=== PATIENT | female | born 1940 | race Caucasian/White ===

== ENCOUNTER → 2016-11-29 | Outpatient (CLI) | payer BC ==
[~2016-11-29] MED LIST: ALBUAER2 INH; ASPI81TA25 PO; B-COTAB18 PO; BUSP5TAB59 PO; BYS/5 PO; CHOL1TAB42; CLON0.5T3 PO; CRS/10 PO; DEXL60CA4 PO; LAMO150T32 PO; LETR2TAB PO; NTRGSL/4 UT; QUET-205 PO; QUET1TAB32 PO; ROFL1TAB5 PO; VENL150T33 PO; VITAMIN B PO
--- NOTE | 2016-11-29 12:36 | MAMMOGRAPHY REPORT ---
THIS REPORT HAS BEEN AMENDED. BILATERAL DIGITAL DIAGNOSTIC MAMMOGRAM TOMOSYNTHESIS WITH CAD AND TARGETED RIGHT ULTRASOUND: 11/29/19 17 CLINICAL HISTORY: History of right breast cancer status post lumpectomy. The patient reports a poss ible lump as well as some tenderness along her right scar. She reports that she had a breast MRI in 2016 at [facility]. TECHNIQUE: Breast tomosynthesis in addition to standard 2D mammography was performed. Current study was also evaluated with a Computer Aided Detection (CAD) system. Bilateral CC and MLO 2-D and ganga synthesis images were obtained. COMPARISON: Comparison is made to exams dated: 11/16/2015 ultrasound, 10/18/2015 breast MRI, 015 mammogram, 08/11/2014 ultrasound, 07/30/2014 mammogram, and 08/11/2014 mammogram - [facility]. BREAST COMPOSITION: There are scattered areas of fibroglandular density in both breasts. FINDINGS: There are stable post treatment changes in the right breast, with stable density and arch itectural distortion seen within the right upper outer quadrant at the lumpectomy bed. Mild diffuse right breast trabecular thickening is decreased. There are stable post surgical changes in the lef t anterior breast. There are no suspicious masses, calcifications, or areas of nonsurgical architec tural distortion noted in either breast. Bilateral benign-appearing calcifications are again noted. Targeted ultrasound was performed of the area of the palpable lump and tenderness along her scar in the right breast at 9:00, approximately 5 cm from the nipple. There are expected postsurgical gibbs es at the surgical bed, without evidence of a suspicious mass or other suspicious sonographic abnorm ality. Slightly more laterally at approximately 7 cm from the nipple, there is a thin anechoic flui d collection which measures 1.8 x 0.2 cm, consistent with a benign postsurgical seroma. IMPRESSION: ACR BI-RADS CATEGORY 2: BENIGN, TARGETED ULTRASOUND ACR BI-RADS CATEGORY 2: BENIGN Expected postsurgical changes in the right breast, without mammographic evidence of malignancy in ei ther breast. Expected postsurgical changes are seen at the surgical bed in the right breast on ultr asound at the site of the possible lump and tenderness, with no suspicious masses noted. There is no mammographic or targeted sonographic evidence of malignancy. Recommend clinical follow-up, and rec ommend routine bilateral mammograms in one year. The patient reports she had an outside breast MRI last year; we will try to obtain the outside MRI a nd an addendum will be made if any further workup needs to be performed once the MRI is reviewed. T he patient has been verbally notified of the results. Approximately 10% of breast cancers are not detected with mammography. A negative mammographic repor t should not delay biopsy if a clinically suggestive mass is present. Mandy Edward M.D. ah/:11/29/2016 12:06:39 Bolt Man: Yolie MOSES)(Virgie), [facility] letter sent: Normal 11/19 BI-RADS Code: ACR BI-RADS Category 2: Benign Ultrasound BI-RADS: ACR BI-RADS Category 2: Benign AMENDMENT: 12/05/2016 Mandy Edward M.D. The prior outside breast MRI and report dated 07/20/2016 from [facility] has become available for comparison. The MRI was given a BI-RADS 2, with no MRI evidence of malignancy noted. Therefore , no further work up is needed in regards to the MRI. Recommend routine bilateral mammograms in one year. Amended BI-RADS: ACR BI-RADS Category 2: Benign
== END | disposition home or self-care (01) ==
LOC: C.MAMM 10:24
PROVIDERS: ATTEND Surgery
DX: C50.911 Malignant neoplasm of unspecified site of right female breast (principal)

== ENCOUNTER → 2016-12-24 | Outpatient (CLI) | payer BC ==
[2016-12-24 13:53] LABS: HEMATOCRIT 37.4 % (37-47); MEAN CELL VOLUME 92.6 fL (80-100); MEAN CORPUSCULAR HEMOGLOBIN 30.7 pg (25-34); MEAN CORPUSCULAR HGB CONC 33.2 g/dl (32-36); MEAN PLATELET VOLUME 10.1 fL (7.4-10.4); PLATELET COUNT 221 K/uL (130-400); RED BLOOD COUNT 4.04 M/uL (4.2-5.4); WHITE BLOOD COUNT 6.32 K/uL (4.8-10.8)
[2016-12-24 14:00] LABS: ESTIMATED AVERAGE GLUCOSE 114 mg/dl; HA1C FLAG Normal (Normal)
[2016-12-24 14:23] LABS: ALT/SGPT 27 U/L (12-78); AST/SGOT 24 U/L (15-37); BLOOD UREA NITROGEN 13 mg/dl (7-18); BUN/CREATININE RATIO 10.5 (10-20); CALCIUM 8.9 mg/dl (8.5-10.1); CARBON DIOXIDE 23 mmol/L (21-32); CHLORIDE 109 mmol/L (98-107); CHOLESTEROL 186 mg/dl (0-200); GLUCOSE 100 mg/dl (70-99); POTASSIUM 3.7 mmol/L (3.5-5.1); SODIUM 143 mmol/L (136-145)
[2016-12-24 14:32] LABS: ALB/GLOB RATIO 0.9 (0.9-2); ALKALINE PHOSPHATASE 110 U/L (45-117); CHOLESTEROL/HDL RATIO 4.4; HDL CHOLESTEROL 42 mg/dl; LDL CHOLESTEROL CALCULATED 88 mg/dl; THYROID STIMULATING HORMONE 0.271 uIu/ml (0.300-4.500); TRIGLYCERIDES 280 mg/dl (0-150); VERY LOW DENSITY LIPOPROT CALC 56 mg/dl
--- NOTE | 2017-01-22 07:03 | CODING QUERY MEDICAL NECESSITY ---
CQSUPPORTING DIAGNOSIS NEEDED A supporting diagnosis is required for the test/procedure performed on this patient in order for us to be reimbursed by the patient's insurance. Please provide a supporting diagnosis for the following test/procedure listed below next to the test name along with your signature. *If there is no additional diagnosis for this patient that would support the following test/procedure please document that below next to the test/procedure. Test(s)/Procedure(s) that require a supporting diagnosis: DOS 12/24/16 VITAMIN B12 TEST Provider Signature: Date: Thank you Junie Chavez [employer] Information Management Once completed, please kindly fax back to [phone] For questions please call [phone]
== END | disposition home or self-care (01) ==
LOC: C.LABBC 09:51
PROVIDERS: ATTEND Family Medicine
DX: R73.09 Other abnormal glucose (principal); D51.9 Vitamin B12 deficiency anemia, unspecified

== ENCOUNTER → 2016-12-31 | Outpatient (CLI) | payer BC ==
--- NOTE | 2016-12-31 13:10 | DIAGNOSTIC IMAGING REPORT ---
LEFT SHOULDER MIN 2 VIEWS ROUTINE CLINICAL HISTORY: Left shoulder pain. No recent trauma. COMPARISON: None FINDINGS: Alignment of left shoulder is anatomic. There is no fracture or suspicious lesion. Mild degenerative changes are present. IMPRESSION: 1. No acute fracture or dislocation of the left shoulder. 2. Mild degenerative changes of the left shoulder. Electronically signed by: Wes Lui M.D. 12/31/2016 1:09 PM Dictated Date/Time: 12/31/2016 1:07 PM
--- NOTE | 2016-12-31 13:23 | DIAGNOSTIC IMAGING REPORT ---
CERVICAL SPINE 5 VIEWS HISTORY: Pain NECK PAIN COMPARISON: None. FINDINGS: The cervical spine is visualized from C1 through the superior endplate of T1. There is no fracture. No subluxation. Moderate degenerative disc change throughout. Mild osteopenia. Calcification of the carotid vasculature bilaterally. Prevertebral soft tissues and the atlantodens interval are intact. IMPRESSION: Moderate degenerative disc change throughout the entire cervical region. Osteopenia. Calcification of the carotid vasculature. Electronically signed by: Jeff Marlow M.D. 12/31/2016 1:22 PM Dictated Date/Time: 12/31/2016 1:21 PM
--- NOTE | 2017-01-02 10:41 | CODING QUERY NO DIAGNOSIS ---
TREATMENT RENDERED WITHOUT A DIAGNOSIS To promote full compliance with coding requirements relating to patient care, physician participation is requested in all cases of battery mechanic uncertainty. Please assist us with providing a diagnosis/symptom for the test(s) below: A diagnosis/symptom was not documented on your Order. A valid diagnosis/symptom is required to bill all insurances. Please remember that we are unable to code a diagnosis of rule out, probable, possible, questionable, or suspected. Tests that require a diagnosis: * C-SPINE XRAY DIAGNOSIS: * SHOULDER XRAY DIAGNOSIS: Provider Signature: Date: Thank you Elle Thakkar [employer] Information Management Once completed, please kindly fax back to [phone] For questions please call [phone]
== END | disposition home or self-care (01) ==
LOC: C.RADBC 12:43
PROVIDERS: ATTEND Family Medicine
DX: M54.2 Cervicalgia (principal); M25.512 Pain in left shoulder

== ENCOUNTER → 2017-02-05 | Outpatient (CLI) | payer BC ==
[2017-02-05 13:25] VITALS: BP 112/76; PULSE 87; TEMP 36.8; O2SAT 92
--- NOTE | 2017-02-05 14:23 | Radiation Oncology Follow-Up ---
Radiation Oncology Follow-Up Date of Visit Feb 05, 2017. Reason For Visit Annual follow-up Radiation Completion Date finished 12-24-2014 Diagnosis (1) Breast cancer Status: Resolved Onset Date: 08/23/2014 Stage: l Permanent Comment: Abnormal bilateral mammogram Status post core needle biopsy 08/23/2014 revealing intraductal papilloma on the left Right breast showed invasive ductal carcinoma Status post right lumpectomy and sentinel lymph node biopsy 10/08/2014 Stage [id number] Status post completion of radiation therapy 12/24/2014 utilizing hypo- fractionation received 5000 cGy Last Edited By: Brandy Damon on Aug 04, 2015 15:23 Interim History She has been doing well over this past year in regards to her breast. She is noted no masses or tenderness no change of the axilla. She is noted no swelling of her arm. She is up-to-date on mammography. She did have an area of fibrous tissue in the lateral portion of the breast. This has improved with massage therapy. She has seen Dr. Urbano in follow-up. She was seen on 2015. On that day she also had an MRI of her breasts. This showed no MRI evidence of malignancy. BI-RADS Category 2. She then had mammography 2016 at [facility]. This showed expected postsurgical changes in the right breast, without mammographic evidence of malignancy in either breast. Expected postsurgical changes are seen at the surgical bed in the right breast on ultrasound at the site of the possible lump and tenderness, with no suspicious mass noted. There is no mammographic or targeted sonographic evidence of malignancy. Recommend clinical follow-up and recommend routine bilateral mammography in one year. This lump was reported by the patient. This had been found previously examination. This was evaluated with an FNA that was benign. She continues on Femara. She denies side effects. Allergies Coded Allergies: Clopidogrel (Verified Allergy, Mild, HIVES, 12/06/14) Bupropion (Verified Allergy, Unknown, unknown, 12/06/14) Dicyclomine (Verified Allergy, Unknown, Glow, 12/06/14) Diltiazem (Verified Allergy, Unknown, Light headed, 12/06/14) Erythromycin (Verified Allergy, Unknown, EES, TAKES Z-PACKS W/O RXN, ) GAVE DIARRHEA Gabapentin (Verified Allergy, Unknown, "hands catch fire", 12/06/14) Losartan (Verified Allergy, Unknown, HIVES, 12/06/14) Micafungin (Verified Allergy, Unknown, rash, 12/06/14) Potassium Chloride (Verified Allergy, Unknown, Unknown, 12/06/14) Sucralfate (Verified Allergy, Unknown, Glow, 12/06/14) Sulfa Drugs (Verified Allergy, Unknown, SKIN BECOMES PHOTOSENSITIVE AND BECOMES RED, 12/06/14) Diazepam (Verified Adverse Reaction, Mild, DEPRESSION, 12/06/14) Amoxicillin (Verified Adverse Reaction, Unknown, DIARRHEA, 12/06/14) Clavulanic Acid (Verified Adverse Reaction, Unknown, DIARRHEA, 12/06/14) Hydrocodone (Verified Adverse Reaction, Unknown, CAN'T TOLERATE FOR LONG - "NOT ABLE TO FUNCTION", 12/06/14) PCUC RN SAID NOT A TRUE ALLERGY (01/16/04) Lisinopril (Verified Adverse Reaction, Unknown, COUGH, 12/06/14) Oxycodone (Verified Adverse Reaction, Unknown, INC. DEPRESSION, 12/06/14) PT REFUSED PERCOCET ON 01/16/04 SAID SHE HAD PAST ADDICTION PBS WITH IT. Penicillins (Verified Adverse Reaction, Unknown, AUGMENTIN=diarrhea, ) Home Medications Scheduled Aspirin (Aspir-Low), 1 TAB PO DAILY B-Complex Vitamins (Vitamin B Complex), 1 TAB PO DAILY Buspirone Hcl (Buspirone Hcl), 10 MG PO QAM Buspirone Hcl (Buspirone Hcl), 5 MG PO HS Cholecalciferol (Vitamin D), 5,000 UNITS DAILY Clonazepam (Klonopin), 0.5 MG PO HS Dexlansoprazole (Dexilant), 60 MG PO HS Lamotrigine (Lamictal), 150 MG PO DAILY Letrozole (Femara), 2.5 MG PO DAILY Nebivolol Hcl (Bystolic), 5 MG PO DAILY Nitroglycerin (Nitrostat), 0.4 MG UT PRN Quetiapine Fumarate (Seroquel), 200 MG PO HS Roflumilast (Daliresp), 500 MCG PO DAILY Rosuvastatin Calcium (Crestor), 10 MG PO QPM Venlafaxine Hcl (Venlafaxine Hcl Er), 150 MG PO QAM [Vitamin b], 500 MG PO DAILY Scheduled PRN Albuterol (Ventolin), 2 PUFF INH QID PRN for SOB/Wheezing Review of Systems Gastrointestinal: Symptoms: Diarrhea GI Comments: to have a colonoscopy March 05, 2017 Oral: Symptoms: No Problems Respiratory: Symptoms: WNL Sputum Character: white to clear sputum Other Respiratory: o@ saturation decreases to 70 ` s during the night, wears o2 2 Liters at ni Urinary: Symptoms: WNL Skin: Symptoms: No Problems Other Skin Symptoms: right side of breast dry and slightly pink, growth on right nipple Breast: Right Upper Arm Measurement: 38.0 Right Mid Arm Measurement: 25.5 Right Wrist Measurement: 16.1 Left Upper Arm Measurement: 36.5 Left Mid Arm Measurement: 25.5 Left Wrist Measurement: 17.9 Arm Dominence: Right Patient Cosmetic Evaluation: Excellent Staff Cosmetic Evalaluation: Excellent Physical Exam Vital Signs Date Time Temp Pulse Resp B/P Pulse Ox O2 Delivery O2 Flow Rate FiO2 02/05/17 13:25 36.8 87 20 112/76 92 Pain: Side: Bilateral Pain Location: eye discomfort; Patient Pain Scale: 0 - 10 Initial Pain Intensity: 0.0 Fatigue: None General Appearance: no apparent distress Eyes: normal inspection, EOMI ENT: normal ENT inspection, hearing grossly normal Respiratory/Chest: lungs clear, no respiratory distress, no accessory muscle use Breast: Breast examination reveals well-healed incisions of the right breast. Previous area of palpable firmness along the incision line has resolved. There are no masses or tenderness no axillary adenopathy. There are no skin retractions or nipple changes. Using the [place] score cosmesis she has a excellent outcome. The left breast showed no masses or tenderness and no axillary adenopathy. Cardiovascular: regular rate, rhythm, no gallop, no murmur Extremities: no pedal edema Neurologic/Psychiatric: no motor/sensory deficits, alert, normal mood/affect Skin: warm/dry Lymphatic: no adenopathy Laboratory Studies Test 12/24/16 09:56 White Blood Count 6.32 K/uL (4.8-10.8) Red Blood Count 4.04 M/uL (4.2-5.4) Hemoglobin 12.4 g/dL (12.0-16.0) Hematocrit 37.4 % (37-47) Mean Corpuscular Volume 92.6 fL (80-100) Mean Corpuscular Hemoglobin 30.7 pg (25-34) Mean Corpuscular Hemoglobin Concent 33.2 g/dl (32-36) RDW Standard Deviation 45.4 fL (36.4-46.3) RDW Coefficient of Variation 13.4 % (11.5-14.5) Platelet Count 221 K/uL (130-400) Mean Platelet Volume 10.1 fL (7.4-10.4) Sodium Level 143 mmol/L (136-145) Potassium Level 3.7 mmol/L (3.5-5.1) Chloride Level 109 mmol/L (98-107) Carbon Dioxide Level 23 mmol/L (21-32) Anion Gap 11.0 mmol/L (3-11) Blood Urea Nitrogen 13 mg/dl (7-18) Creatinine 1.20 mg/dl (0.60-1.20) Estimated GFR () 51.6 Estimated GFR (Non- 44.5 BUN/Creatinine Ratio 10.5 (10-20) Random Glucose 100 mg/dl (70-99) Estimated Average Glucose 114 mg/dl Hemoglobin A1c 5.6 % (4.5-5.6) Calcium Level 8.9 mg/dl (8.5-10.1) Total Bilirubin 0.3 mg/dl (0.2-1) Aspartate Amino Transferase (AST) 24 U/L (15-37) Alanine Aminotransferase (ALT) 27 U/L (12-78) Alkaline Phosphatase 110 U/L (45-117) Total Protein 7.2 gm/dl (6.4-8.2) Albumin 3.5 gm/dl (3.4-5.0) Globulin 3.7 gm/dl (2.5-4.0) Albumin/Globulin Ratio 0.9 (0.9-2) Triglycerides Level 280 mg/dl (0-150) Cholesterol Level 186 mg/dl (0-200) HDL Cholesterol 42 mg/dl LDL Cholesterol, Calculated 88 mg/dl VLDL Cholesterol, Calculated 56 mg/dl Cholesterol/HDL Ratio 4.4 Vitamin B12 Level 450 pg/mL (211-911) Thyroid Stimulating Hormone (TSH) 0.271 uIu/ml (0.300-4.500) Free Thyroxine 0.71 ng/dl (0.80-1.60) Free Triiodothyronine 2.48 pg/ml (2.30-4.20) Additional Studies THIS REPORT HAS BEEN AMENDED. BILATERAL DIGITAL DIAGNOSTIC MAMMOGRAM TOMOSYNTHESIS WITH CAD AND TARGETED RIGHT ULTRASOUND: 11/29/2016 CLINICAL HISTORY: History of right breast cancer status post lumpectomy. The patient reports a possible lump as well as some tenderness along her right scar. She reports that she had a breast MRI in 2016 at [facility]. TECHNIQUE: Breast tomosynthesis in addition to standard 2D mammography was performed. Current study was also evaluated with a Computer Aided Detection (CAD ) system. Bilateral CC and MLO 2-D and tomosynthesis images were obtained. COMPARISON: Comparison is made to exams dated: 11/16/2015 ultrasound, 2014 breast MRI, 10/03/2015 mammogram, 08/11/2014 ultrasound, 07/30/2014 mammogram , and 08/11/2014 mammogram - [facility]. BREAST COMPOSITION: There are scattered areas of fibroglandular density in both breasts. FINDINGS: There are stable post treatment changes in the right breast, with stable density and architectural distortion seen within the right upper outer quadrant at the lumpectomy bed. Mild diffuse right breast trabecular thickening is decreased. There are stable post surgical changes in the left anterior breast. There are no suspicious masses, calcifications, or areas of nonsurgical architectural distortion noted in either breast. Bilateral benign- appearing calcifications are again noted. Targeted ultrasound was performed of the area of the palpable lump and tenderness along her scar in the right breast at 9:00, approximately 5 cm from the nipple. There are expected postsurgical changes at the surgical bed, without evidence of a suspicious mass or other suspicious sonographic abnormality. Slightly more laterally at approximately 7 cm from the nipple, there is a thin anechoic fluid collection which measures 1.8 x 0.2 cm, consistent with a benign postsurgical seroma. IMPRESSION: ACR BI-RADS CATEGORY 2: BENIGN, TARGETED ULTRASOUND ACR BI-RADS CATEGORY 2: BENIGN Expected postsurgical changes in the right breast, without mammographic evidence of malignancy in either breast. Expected postsurgical changes are seen at the surgical bed in the right breast on ultrasound at the site of the possible lump and tenderness, with no suspicious masses noted. There is no mammographic or targeted sonographic evidence of malignancy. Recommend clinical follow-up, and recommend routine bilateral mammograms in one year. The patient reports she had an outside breast MRI last year; we will try to obtain the outside MRI and an addendum will be made if any further workup needs to be performed once the MRI is reviewed. The patient has been verbally notified of the results. Approximately 10% of breast cancers are not detected with mammography. A negative mammographic report should not delay biopsy if a clinically suggestive mass is present. Mandy Edward M.D. ah/:11/29/2016 12:06:39 Offal Separator: Yolie MOSES)(Virgie), [facility] letter sent: Normal 11/19 BI-RADS Code: ACR BI-RADS Category 2: Benign Ultrasound BI-RADS: ACR BI-RADS Category 2: Benign AMENDMENT: 12/05/2016 Mandy Edward M.D. The prior outside breast MRI and report dated 07/20/2016 from [facility] has become available for comparison. The MRI was given a BI-RADS 2, with no MRI evidence of malignancy noted. Therefore, no further work up is needed in regards to the MRI. Recommend routine bilateral mammograms in one year. Amended BI-RADS: ACR BI-RADS Category 2: Benign Dictated by: Mandy Edward MD Signed by: Mandy Edward MD Assessment & Plan Plan: Continue regular follow-up with her primary care physician and . She continues on the Femara. She'll continue massage therapy to the right breast scar. She has an essential tremor of the hands. She is following with Dr. Clark in regards to treatment and follow-up. She has a right breast digital diagnostic mammogram scheduled for March 2017. Continue follow-up as recommended by radiology. On the last mammogram it was felt that she could continue with mammograms imaging only at this point. She is to continue with bilateral mammography. Final decision regarding further MRIs per . We asked her to return to our office in 1 year. She may call she has a questions or concerns in the interim. Total Time In Follow-Up I spent 20 minutes speaking to the patient performing examination. I spent 15 minutes reviewing information and completing this note. Copy To Abiel Clark M.D. Problem Qualifiers (1) Breast cancer: Breast location: central portion of breast Patient sex: female Laterality: right Qualified Codes: C50.111 - Malignant neoplasm of central portion of right female breast
== END | disposition home or self-care (01) ==
LOC: C.ONC 13:11
PROVIDERS: ATTEND Physician Assistant Medical
DX: Z08 Encounter for follow-up examination after completed treatment for malignant neoplasm (principal); Z92.3 Personal history of irradiation; Z85.3 Personal history of malignant neoplasm of breast

== ENCOUNTER → 2017-05-30 | Outpatient (CLI) | payer BC ==
[~2017-05-30] MED LIST changes: -QUET-205 PO
[2017-05-30 18:45] LABS: BASO % 0.4 %; BASO ABS # 0.03 K/uL (0-0.2); COMPLETE YES; EOS % 3.1 %; HEMATOCRIT 35.6 % (37-47); IG% 0.3 %; LYMPH % 32.3 %; MEAN CELL VOLUME 91.5 fL (80-100); MEAN CORPUSCULAR HEMOGLOBIN 30.3 pg (25-34); MEAN CORPUSCULAR HGB CONC 33.1 g/dl (32-36); MEAN PLATELET VOLUME 9.5 fL (7.4-10.4); MONO % 12.4 %; NEUT % 51.5 %; PLATELET COUNT 187 K/uL (130-400); RED BLOOD COUNT 3.89 M/uL (4.2-5.4); WHITE BLOOD COUNT 7.12 K/uL (4.8-10.8)
[2017-05-30 19:19] LABS: ALB/GLOB RATIO 0.9 (0.9-2); ALKALINE PHOSPHATASE 110 U/L (45-117); ALT/SGPT 29 U/L (12-78); AST/SGOT 24 U/L (15-37); BLOOD UREA NITROGEN 15 mg/dl (7-18); BUN/CREATININE RATIO 10.4 (10-20); CALCIUM 9.3 mg/dl (8.5-10.1); CARBON DIOXIDE 27 mmol/L (21-32); CHLORIDE 107 mmol/L (98-107); GLUCOSE 95 mg/dl (70-99); POTASSIUM 4.3 mmol/L (3.5-5.1); SODIUM 142 mmol/L (136-145); THYROID STIMULATING HORMONE < 0.005 uIu/ml (0.300-4.500)
[2017-05-30 20:09] LABS: LYME DISEASE AB IGG NEG (NEG)
[2017-05-30 20:10] LABS: LYME DISEASE AB IGM NEG (NEG)
[2017-06-05 15:27] LABS: 18KDIGG BAND NONREACTIVE (NONREACTIVE); 23KDIGG BAND NONREACTIVE (NONREACTIVE); 23KDIGM BAND NONREACTIVE (NONREACTIVE); 28KDIGG BAND NONREACTIVE (NONREACTIVE); 30KDIGG BAND NONREACTIVE (NONREACTIVE); 39KDIGG BAND NONREACTIVE (NONREACTIVE); 39KDIGM BAND NONREACTIVE (NONREACTIVE); 41KDIGG BAND NONREACTIVE (NONREACTIVE); 41KDIGM BAND NONREACTIVE (NONREACTIVE); 45KDIGG BAND NONREACTIVE (NONREACTIVE); 58KDIGG BAND NONREACTIVE (NONREACTIVE); 66KDIGG BAND REACTIVE (NONREACTIVE); 93KDIGG BAND NONREACTIVE (NONREACTIVE)
== END | disposition home or self-care (01) ==
LOC: C.LAB 17:31
PROVIDERS: ATTEND Family Medicine
DX: R07.9 Chest pain, unspecified (principal)

== ENCOUNTER → 2017-06-05 | Outpatient (CLI) | payer BC ==
--- NOTE | 2017-06-05 14:25 | DIAGNOSTIC IMAGING REPORT ---
CHEST 2 VIEWS ROUTINE CLINICAL HISTORY: Fever. Shortness of breath. COMPARISON STUDY: Chest radiograph May 12, 2015. FINDINGS: No pneumothorax or pleural effusion is present. There is irregularity with sclerosis of an anterior right sided rib. On this exam, it is difficult to determine which rib this represents. This is new since prior chest radiograph of May 12, 2015. Lungs are clear. There is no evidence of pulmonary edema. Cardiomediastinal silhouette is unremarkable. IMPRESSION: 1. No acute cardiopulmonary findings. 2. Sclerosis and irregularity of a right anterior rib. While nonspecific, this could be related to previous radiation therapy for breast cancer or posttraumatic. Electronically signed by: Wes Lui M.D. 06/05/2017 2:24 PM Dictated Date/Time: 06/05/2017 2:14 PM
[2017-06-05 14:42] LABS: BASO % 0.5 %; BASO ABS # 0.03 K/uL (0-0.2); COMPLETE YES; EOS % 3.3 %; HEMATOCRIT 35.9 % (37-47); IG% 0.2 %; LYMPH % 35.4 %; LYMPH ABS # 2.36 K/uL (1.2-3.4); MEAN CELL VOLUME 90.4 fL (80-100); MEAN CORPUSCULAR HEMOGLOBIN 30.5 pg (25-34); MEAN CORPUSCULAR HGB CONC 33.7 g/dl (32-36); MEAN PLATELET VOLUME 9.5 fL (7.4-10.4); MONO % 9.6 %; PLATELET COUNT 201 K/uL (130-400); RED BLOOD COUNT 3.97 M/uL (4.2-5.4); WHITE BLOOD COUNT 6.66 K/uL (4.8-10.8)
[2017-06-05 15:13] LABS: ALT/SGPT 30 U/L (12-78); AST/SGOT 25 U/L (15-37); BLOOD UREA NITROGEN 19 mg/dl (7-18); BUN/CREATININE RATIO 14.4 (10-20); CALCIUM 9.4 mg/dl (8.5-10.1); CARBON DIOXIDE 27 mmol/L (21-32); CHLORIDE 110 mmol/L (98-107); GLUCOSE 104 mg/dl (70-99); POTASSIUM 4.2 mmol/L (3.5-5.1); SODIUM 143 mmol/L (136-145)
[2017-06-05 15:15] LABS: ALB/GLOB RATIO 0.9 (0.9-2); ALKALINE PHOSPHATASE 115 U/L (45-117)
[2017-06-05 16:16] LABS: LYME DISEASE AB IGM NEG (NEG)
[2017-06-05 16:19] LABS: LYME DISEASE AB IGG NEG (NEG)
[2017-06-11 18:00] LABS: 18KDIGG BAND NONREACTIVE (NONREACTIVE); 23KDIGG BAND NONREACTIVE (NONREACTIVE); 23KDIGM BAND NONREACTIVE (NONREACTIVE); 28KDIGG BAND NONREACTIVE (NONREACTIVE); 30KDIGG BAND NONREACTIVE (NONREACTIVE); 39KDIGG BAND NONREACTIVE (NONREACTIVE); 39KDIGM BAND NONREACTIVE (NONREACTIVE); 41KDIGG BAND NONREACTIVE (NONREACTIVE); 41KDIGM BAND NONREACTIVE (NONREACTIVE); 45KDIGG BAND NONREACTIVE (NONREACTIVE); 58KDIGG BAND NONREACTIVE (NONREACTIVE); 66KDIGG BAND NONREACTIVE (NONREACTIVE); 93KDIGG BAND NONREACTIVE (NONREACTIVE)
== END | disposition home or self-care (01) ==
LOC: C.RAD 13:30
PROVIDERS: ATTEND Family Medicine
DX: R06.02 Shortness of breath (principal); R50.9 Fever, unspecified; M89.9 Disorder of bone, unspecified

== ENCOUNTER → 2017-07-23 | Outpatient (CLI) | payer BC | END | disposition home or self-care (01) | LOC: C.MAMM 13:04 | PROVIDERS: ATTEND Family Medicine | DX: N95.8 Other specified menopausal and perimenopausal disorders (principal); M81.0 Age-related osteoporosis without current pathological fracture; M85.851 Other specified disorders of bone density and structure, right thigh; M85.852 Other specified disorders of bone density and structure, left thigh ==

== ENCOUNTER 2017-12-05 14:49 | Emergency (ER) | payer BC ==
[~2017-12-05] VITALS: Ht 152.4 cm; Wt 80.5 kg
[~2017-12-05 14:49] MED LIST changes: -DEXL60CA4 PO; -LAMO150T32 PO; -NTRGSL/4 UT; -VENL150T33 PO
[2017-12-05 14:56] VITALS: Ht 152.4 cm; Wt 80.5 kg
[2017-12-05] MEDS ORDERED: VENL150T33 PO (15:46)
[2017-12-05] MEDS ORDERED: LAMO150T PO (17:47)
[2017-12-05] MEDS ORDERED: OXYCODONE/ACETAMINOPHEN 5-325 TAB PO ONE (18:30)
--- NOTE | 2017-12-05 18:51 | DIAGNOSTIC IMAGING REPORT ---
CHEST ONE VIEW PORTABLE HISTORY: Atypical chest pain. COMPARISON: Chest 06/05/2017. FINDINGS: Mild emphysema. The lungs are clear. The heart is normal in size. Mildly tortuous thoracic aorta. No pleural effusions. No pneumothorax. No new focal lung consolidations. IMPRESSION: No significant change compared to the prior study. No acute process. Electronically signed by: Kavon Yi M.D. 12/05/2017 6:50 PM Dictated Date/Time: 12/05/2017 6:49 PM
[2017-12-05 19:06] VITALS: O2SAT 98
[2017-12-05 19:20] LABS: HEMATOCRIT 36.5 % (37-47); HEMOGLOBIN 12.1 g/dL (12.0-16.0); MEAN CELL VOLUME 93.1 fL (80-100); MEAN CORPUSCULAR HEMOGLOBIN 30.9 pg (25-34); MEAN CORPUSCULAR HGB CONC 33.2 g/dl (32-36); MEAN PLATELET VOLUME 9.6 fL (7.4-10.4); PLATELET COUNT 196 K/uL (130-400); RED CELL DISTRIBUTION WIDTH CV 13.8 % (11.5-14.5); RED CELL DISTRIBUTION WIDTH SD 46.6 fL (36.4-46.3); WHITE BLOOD COUNT 10.71 K/uL (4.8-10.8)
[2017-12-05] MEDS ORDERED: QUET150T4 PO (19:26)
[2017-12-05] MEDS ORDERED: OXGN (19:26)
[2017-12-05] MEDS ORDERED: QUET5TAB PO (19:26)
[2017-12-05] MEDS ORDERED: BXN500 PO (19:26)
[2017-12-05] MEDS ORDERED: ROFL1TAB5 PO (19:26)
[2017-12-05] MEDS ORDERED: LEVO100T7 PO (19:26)
[2017-12-05] MEDS ORDERED: BYS/5 PO (19:26)
[2017-12-05] MEDS ORDERED: LEVA45AE INH (19:30)
[2017-12-05] MEDS ORDERED: SPRIN/30 INH (19:32)
[2017-12-05] MEDS ORDERED: SYMIN160 INH (19:32)
[2017-12-05 19:39] LABS: ALBUMIN 3.1 gm/dl (3.4-5.0); CALCIUM 8.7 mg/dl (8.5-10.1); CREATININE 1.42 mg/dl (0.60-1.20); POTASSIUM 4.1 mmol/L (3.5-5.1)
[2017-12-05 19:40] LABS: PTT PATIENT 25.7 SECONDS (21.0-31.0)
[2017-12-05 19:44] LABS: CKMB 0.9 ng/ml (0.5-3.6); TOTAL PROTEIN 7.2 gm/dl (6.4-8.2)
[2017-12-05] MEDS ORDERED: OXYC-57 PO (20:03)
--- NOTE | 2017-12-05 20:04 | EMERGENCY ROOM VISIT NOTE ---
History Report prepared by Jasmin: Martina Coley Under the Supervision of: Dr. Joe Armstrong D.O. First contact with patient: 18:10 Chief Complaint: CHEST PAIN Stated Complaint: SOB, CHEST PAIN, CARDIAC HISTORY Nursing Triage Summary: Patient with c/o chest pain pressure since Saturday and sob and Lower abdominal spasms. Patient states she was on an ABX for 10 days but still was coughing up yellowish sputum PCP placed on Clarithryomycin BID. History of Present Illness The patient is a 77 year old female who presents to the Emergency Room with complaints of an episode of chest pain starting two days ago. The patient states that she started an infection on November 20. She reports that she went to her PCP, but wasn't diagnosed with the flu or pneumonia. She reports that he gave her Clarithromycin, an inhaler, and Prednisone. She states that she went back again last week to her PCP because she had no improvement. She reports that she had another appointment with him today, but was told to come to the ED because she started experiencing back spasms. The patient complains of nasal congestion, a productive cough, her ears being plugged, voice hoarseness, right sided back spasms, and abdominal spasms. Source of History: patient Onset: two days ago Position: other (global) Quality: other (spasms) Timing: other (episode) Associated Symptoms: + cough (productive), + abdominal pain, + back pain Note: The patient complains of nasal congestion, her ears being plugged, and voice hoarseness. Review of Systems See HPI for pertinent positives & negatives. A total of 10 systems reviewed and were otherwise negative. Past Medical & Surgical Medical Problems: (1) ACUTE PANCREATITIS (2) Acute pancreatitis (3) Anemia (4) Anxiety (5) Bipolar 1 disorder (6) Breast cancer (7) CHR AIRWAY OBSTRUCT NEC (8) Coronary artery disease (9) Degenerative joint disease (10) Depression (11) DEPRESSIVE DISORDER NEC (12) Hyperlipidemia (13) HYPERLIPIDEMIA NEC/NOS (14) Hypertension (15) HYPERTENSION NOS (16) PNA (pneumonia) (17) Sleep apnea (18) TUBAL LIGATION STATUS Surgical Problems: (1) H/O right knee surgery (2) Status post cholecystectomy (3) Status post hysterectomy Family History Cardiovascular disease Heart disease Social History Smoking Status: Former Smoker Alcohol Use: none Marital Status: Housing Status: lives with family Occupation Status: employed Current/Historical Medications Scheduled Aspirin (Aspir-Low), 2 TAB PO DAILY B-Complex Vitamins (Vitamin B Complex), 1 TAB PO DAILY Budesonide/Formoterol Fumarate (Symbicort 160/4.5 Inhaler ), 2 PUFFS INH BID Clarithromycin (Clarithromycin), 500 MG PO BID Dexlansoprazole (Dexilant), 60 MG PO HS Home O2 Therapy (Oxygen), 2 LITERS NA HS Lamotrigine (Lamictal), 150 MG PO DAILY Letrozole (Femara), 2.5 MG PO DAILY Levalbuterol Tartrate (Levalbuterol Tartrate Hfa), 2 PUFFS INH BID Levothyroxine Sodium (Levothyroxine Sodium), 100 MCG PO HS Nebivolol Hcl (Bystolic), 5 MG PO DAILY Nitroglycerin (Nitrostat), 0.4 MG UT PRN Quetiapine Fumarate (Seroquel), 50 MG PO HS Quetiapine Fumarate (Quetiapine Fumarate ER), 150 MG PO HS Roflumilast (Daliresp), 500 MCG PO DAILY Rosuvastatin Calcium (Crestor), 10 MG PO DAILY Tiotropium [place] (Spiriva Handihaler), 1 CAP INH DAILY Venlafaxine Hcl (Venlafaxine Hcl Er), 150 MG PO QAM Scheduled PRN Oxycodone/Acetaminophen 5MG/325MG (Percocet 5MG/325MG), 1 TAB PO Q6H PRN for Pain Allergies Coded Allergies: Promethazine (Verified Allergy, Severe, TROUBLE FOCUSING & SPEAKING AT HIGHER DOSES, 12/05/17) Clopidogrel (Verified Allergy, Mild, HIVES, 12/06/14) Bupropion (Verified Allergy, Unknown, unknown, 12/06/14) Dicyclomine (Verified Allergy, Unknown, Glow, 12/06/14) Diltiazem (Verified Allergy, Unknown, Light headed, 12/06/14) Erythromycin (Verified Allergy, Unknown, EES, TAKES Z-PACKS W/O RXN, ) GAVE DIARRHEA Gabapentin (Verified Allergy, Unknown, "hands catch fire", 12/06/14) Losartan (Verified Allergy, Unknown, HIVES, 12/06/14) Metoclopramide (Verified Allergy, Unknown, ESSENTIAL TREMORS, 12/05/17) Micafungin (Verified Allergy, Unknown, rash, 12/06/14) Potassium Chloride (Verified Allergy, Unknown, Unknown, 12/06/14) Sucralfate (Verified Allergy, Unknown, Glow, 12/06/14) Sulfa Drugs (Verified Allergy, Unknown, SKIN BECOMES PHOTOSENSITIVE AND BECOMES RED, 12/06/14) Diazepam (Verified Adverse Reaction, Mild, DEPRESSION, 12/06/14) Amoxicillin (Verified Adverse Reaction, Unknown, DIARRHEA, 12/06/14) Clavulanic Acid (Verified Adverse Reaction, Unknown, DIARRHEA, 12/06/14) Hydrocodone (Verified Adverse Reaction, Unknown, CAN'T TOLERATE FOR LONG - "NOT ABLE TO FUNCTION", 12/06/14) [facility] RN SAID NOT A TRUE ALLERGY (01/16/04) Latex (Verified Adverse Reaction, Unknown, BANDAGE TAKES SKIN OFF, 12/05/17 ) INFO FROM [facility] Lisinopril (Verified Adverse Reaction, Unknown, COUGH, 12/06/14) Oxycodone (Verified Adverse Reaction, Unknown, INC. DEPRESSION, 12/06/14) PT REFUSED PERCOCET ON 01/16/04 SAID SHE HAD PAST ADDICTION PBS WITH IT. Penicillins (Verified Adverse Reaction, Unknown, AUGMENTIN=diarrhea, ) Physical Exam Vital Signs Date Time Temp Pulse Resp B/P (MAP) Pulse Ox O2 Delivery O2 Flow Rate FiO2 12/05/17 21:19 36.9 62 20 122/54 96 12/05/17 20:54 62 15 12/05/17 20:24 62 18 12/05/17 19:54 66 12/05/17 19:49 68 12/05/17 19:37 67 12/05/17 19:19 73 19 12/05/17 19:13 81 18 122/54 96 Room Air 12/05/17 19:10 122/54 12/05/17 19:06 98 Room Air 12/05/17 15:00 Room Air 12/05/17 14:56 36.9 90 16 127/71 96 Room Air Physical Exam CONSTITUTIONAL/VITAL SIGNS: Reviewed / noted above. GENERAL: Non-toxic in appearance. INTEGUMENTARY: Warm, dry, and Joyce. HEAD: Normocephalic. EYES: without scleral icterus or trauma. ENT/OROPHARYNX: clear and moist. LYMPHADENOPATHY/NECK: Is supple without lymphadenopathy or meningismus. RESPIRATORY: Lungs clear and equal. CARDIOVASCULAR: Regular rate and rhythm. GI/ABDOMEN: Soft and nontender. No organomegaly or pulsatile mass. No rebound or guarding. Normal bowel sounds. EXTREMITIES: Warm and well perfused. BACK: No CVA tenderness. NEUROLOGICAL: Intact without focal deficits. PSYCHIATRIC: normal affect. MUSCULOSKELETAL: Normally developed with good muscle tone. Medical Decision & Procedures ER Provider Diagnostic Interpretation: Radiology results as stated below per my review and radiologist interpretation: CHEST ONE VIEW PORTABLE HISTORY: Atypical chest pain. COMPARISON: Chest 06/05/2017. FINDINGS: Mild emphysema. The lungs are clear. The heart is normal in size. Mildly tortuous thoracic aorta. No pleural effusions. No pneumothorax. No new focal lung consolidations. IMPRESSION: No significant change compared to the prior study. No acute process. Electronically signed by: Kavon Yi M.D. 12/05/2017 6:50 PM Dictated Date/Time: 12/05/2017 6:49 PM Laboratory Results 12/05/17 19:11 12/05/17 19:11 Test 12/05/17 19:11 12/05/17 19:13 Red Blood Count 3.92 M/uL (4.2-5.4) Mean Corpuscular Volume 93.1 fL (80-100) Mean Corpuscular Hemoglobin 30.9 pg (25-34) Mean Corpuscular Hemoglobin Concent 33.2 g/dl (32-36) RDW Standard Deviation 46.6 fL (36.4-46.3) RDW Coefficient of Variation 13.8 % (11.5-14.5) Mean Platelet Volume 9.6 fL (7.4-10.4) Prothrombin Time 10.3 SECONDS (9.0-12.0) Prothromb Time International Ratio 1.0 (0.9-1.1) Activated Partial Thromboplast Time 25.7 SECONDS (21.0-31.0) Partial Thromboplastin Ratio 1.0 Anion Gap 6.0 mmol/L (3-11) Est Creatinine Clear Calc Drug Dose 32.2 ml/min Estimated GFR () 41.8 Estimated GFR (Non- 36.0 BUN/Creatinine Ratio 10.2 (10-20) Calcium Level 8.7 mg/dl (8.5-10.1) Total Bilirubin 0.6 mg/dl (0.2-1) Aspartate Amino Transf (AST/SGOT) 14 U/L (15-37) Alanine Aminotransferase (ALT/SGPT) 22 U/L (12-78) Alkaline Phosphatase 84 U/L (45-117) Total Creatine Kinase 71 U/L (26-192) Creatine Kinase MB 0.9 ng/ml (0.5-3.6) Creatine Kinase MB Ratio 1.3 (0-3.0) Total Protein 7.2 gm/dl (6.4-8.2) Albumin 3.1 gm/dl (3.4-5.0) Globulin 4.1 gm/dl (2.5-4.0) Albumin/Globulin Ratio 0.8 (0.9-2) Bedside Troponin I < 0.030 ng/ml (0-0.045) Laboratory results as stated above per my review. Medications Administered Medications (Trade) Dose Ordered Sig/Brent Route Start Time Stop Time Status Last Admin Dose Admin Oxycodone/ Acetaminophen (Percocet 5-325mg Tab) 1 tab NOW ONCE PO 12/05/17 18:30 12/05/17 18:31 DC 12/05/17 18:58 1 TAB ECG Indication: chest pain Rate (beats per minute): 98 Rhythm: normal sinus Findings: PVC, no acute ischemic change, no ectopy ED Course 1813: Previous medical records were reviewed. The patient was evaluated in room C2A. A complete history and physical examination was performed. 1824: Patient's electrocardiogram interpreted by me. 1829: Ordered Oxycodone/ Acetaminophen 1 tab PO. 2006: On reevaluation, the patient is resting comfortably. I discussed the results and findings with the patient. She verbalized agreement of the treatment plan. The patient was discharged home. Medical Decision the differential was considered includes acute myocardial infarction, acute coronary syndrome, myocarditis, pericarditis, pericardial effusions /tamponad, esophageal perforation, pulmonary embolism, pneumonia, pneumothorax, cardiomyopathy, congestive heart, anemia , COPD/asthma exacerbation. This is a 77-year-old female who presents to the ED with a chief complaint of cough as well as some back spasms. The patient has been on antibiotics and is currently on clarithromycin for an upper respiratory infection. She is also taking prednisone. The patient had some back spasms today and came to the ED for evaluation. She was concerned that her cough has not improved since it is been ongoing for 2 weeks. Her vital signs are normal. Physical exam did not reveal any obvious abnormalities. She did have some back discomfort with palpation in the muscular region on the right. EKG showed a sinus rhythm. Chest x-ray was negative for acute disease. CBC is normal, complete metabolic panel was unremarkable and troponin was negative. The patient was given a Percocet for pain. She was told the follow-up with PCP for recheck. She will be given a prescription for Percocet on discharge for her back spasm/pain related to coughing. It is noted that the patient has listed allergy to oxycodone. The patient tolerated the Percocet here without problem. Medication Reconcilliation Current Medication List: was personally reviewed by me Blood Pressure Screening Patient's blood pressure: Normal blood pressure Blood pressure disposition: Did not require urgent referral Impression Primary Impression: Influenza-like illness Additional Impression: Back muscle spasm Scribe Attestation The scribe's documentation has been prepared under my direction and personally reviewed by me in its entirety. I confirm that the note above accurately reflects all work, treatment, procedures, and medical decision making performed by me. Departure Information Dispostion Home / Self-Care Prescriptions Oxycodone/Acetaminophen 5MG/325MG (PERCOCET 5MG/325MG) Tab 1 TAB PO Q6H Y for Pain, #20 TAB Prov: Joe Armstrong D.O. 12/05/17 Referrals Abiel Clark M.D. (PCP) Forms Call Back Authorization, HOME CARE DOCUMENTATION FORM, IMPORTANT VISIT INFORMATION Patient Instructions [facility] Additional Instructions Continue current medications. Percocet as prescribed. No driving within 6 hours of use. Do not take additional Tylenol while taking Percocet. Problem Qualifiers
[2017-12-05 21:19] VITALS: BP 122/54; PULSE 62; TEMP 36.9; O2SAT 96
[2017-12-05] MEDS ORDERED: DEXL60CA4 PO (22:41)
[2017-12-05] MEDS ORDERED: NTRGSL/4 UT (22:51)
== END 2017-12-05 21:20 | disposition home or self-care (01) ==
LOC: C.EDB 14:50 → C.EDC 21:20
DX: R07.9 Chest pain, unspecified (principal); M62.830 Muscle spasm of back; D64.9 Anemia, unspecified; F41.9 Anxiety disorder, unspecified; F31.9 Bipolar disorder, unspecified; Z85.3 Personal history of malignant neoplasm of breast; J44.9 Chronic obstructive pulmonary disease, unspecified; I25.10 Atherosclerotic heart disease of native coronary artery without angina pectoris; E78.5 Hyperlipidemia, unspecified; I10 Essential (primary) hypertension; Z87.01 Personal history of pneumonia (recurrent); G47.30 Sleep apnea, unspecified; Z98.51 Tubal ligation status; Z90.49 Acquired absence of other specified parts of digestive tract; Z90.710 Acquired absence of both cervix and uterus; Z87.891 Personal history of nicotine dependence; Z79.82 Long term (current) use of aspirin; Z79.899 Other long term (current) drug therapy

== ENCOUNTER → 2017-12-19 | Outpatient (CLI) | payer BC ==
[~2017-12-19] MED LIST changes: -ALBUAER2 INH; -BUSP5TAB59 PO; +BXN500 PO; -CHOL1TAB42; -CLON0.5T3 PO; +DEXL60CA4 PO; +LAMO150T PO; +LEVA45AE INH; +LEVO100T7 PO; +NTRGSL/4 UT; +OXGN; +OXYC-57 PO; +QUET150T4 PO; -QUET1TAB32 PO; +QUET5TAB PO; +SPRIN/30 INH; +SYMIN160 INH; +VENL150T33 PO; -VITAMIN B PO
--- NOTE | 2017-12-23 07:40 | MAMMOGRAPHY REPORT ---
BILATERAL DIGITAL SCREENING MAMMOGRAM TOMOSYNTHESIS WITH CAD: 12/19/2017 CLINICAL HISTORY: Asymptomatic. Personal history of breast cancer. TECHNIQUE: Breast tomosynthesis in addition to standard 2D mammography was performed. Current study was also evaluated with a Computer Aided Detection (CAD) system. COMPARISON: Comparison is made to exams dated: 11/29/2016 mammogram, 11/29/2016 mammogram, 11/16/2015 ultrasound, 10/18/2015 breast MRI, 10/03/2015 mammogram, and 08/11/2014 ultrasound - [facility]. BREAST COMPOSITION: There are scattered areas of fibroglandular density in both breasts. FINDINGS: No suspicious masses, calcifications, or areas of architectural distortion are noted in ei ther breast. There has been no significant interval change compared to prior exams. There are stable postoperative changes bilaterally. Bilateral benign-appearing calcifications are not significantly changed. IMPRESSION: ACR BI-RADS CATEGORY 2: BENIGN There is no mammographic evidence of malignancy. A 1 year screening mammogram is recommended. The pa tient will receive written notification of the results. Approximately 10% of breast cancers are not detected with mammography. A negative mammographic report should not delay biopsy if a clinically suggestive mass is present. Mandy Edward M.D. /:12/19/2017 14:36:30 Graffiti Cleaner: Yolie Jones, [facility] letter sent: Normal 1/2 BI-RADS Code: ACR BI-RADS Category 2: Benign
== END | disposition home or self-care (01) ==
LOC: C.MAMM 14:02
PROVIDERS: ATTEND Radiology Radiation Oncology
DX: Z12.31 Encounter for screening mammogram for malignant neoplasm of breast (principal); Z85.3 Personal history of malignant neoplasm of breast

== ENCOUNTER 2018-02-06 09:37 | Emergency (ER) | payer BC ==
[~2018-02-06] VITALS: Ht 152.4 cm; Wt 78.0 kg
[~2018-02-06 09:37] MED LIST changes: -ASPI81TA25 PO; -B-COTAB18 PO; -BYS/5 PO; -CRS/10 PO; -DEXL60CA4 PO; -LAMO150T PO; -LETR2TAB PO; -LEVA45AE INH; -LEVO100T7 PO; -NTRGSL/4 UT; -OXGN; -QUET150T4 PO; -QUET5TAB PO; -ROFL1TAB5 PO; -SPRIN/30 INH; -SYMIN160 INH; -VENL150T33 PO
[2018-02-06 09:49] VITALS: TEMP 36.6; Ht 152.4 cm; Wt 78.0 kg
[2018-02-06] MEDS ORDERED: ONDANSETRON INJ 2 MG/ML 2 ML VIAL IV STA (09:53)
[2018-02-06] MEDS ORDERED: SODIUM CHLORIDE 0.9% 1000ML 1,000 ML IV STA ×2 (09:53→12:37)
[2018-02-06 10:10] VITALS: O2SAT 96
[2018-02-06 10:23] LABS: BASO % 0.5 %; BASO ABS # 0.04 K/uL (0-0.2); EOS % 2.3 %; EOS ABS # 0.17 K/uL (0-0.5); HEMATOCRIT 34.6 % (37-47); HEMOGLOBIN 11.7 g/dL (12.0-16.0); IG# 0.01 K/uL (0.00-0.02); LYMPH % 32.5 %; LYMPH ABS # 2.38 K/uL (1.2-3.4); MEAN CELL VOLUME 90.1 fL (80-100); MEAN CORPUSCULAR HEMOGLOBIN 30.5 pg (25-34); MEAN CORPUSCULAR HGB CONC 33.8 g/dl (32-36); MEAN PLATELET VOLUME 8.9 fL (7.4-10.4); MONO % 13.4 %; MONO ABS # 0.98 K/uL (0.11-0.59); NEUT % 51.2 %; NEUT ABS # 3.75 K/uL (1.4-6.5); PLATELET COUNT 162 K/uL (130-400); RED CELL DISTRIBUTION WIDTH CV 13.8 % (11.5-14.5); RED CELL DISTRIBUTION WIDTH SD 45.6 fL (36.4-46.3); WHITE BLOOD COUNT 7.33 K/uL (4.8-10.8)
[2018-02-06] MEDS ORDERED: LIOT5TAB9 PO (10:28)
--- NOTE | 2018-02-06 10:34 | DIAGNOSTIC IMAGING REPORT ---
CHEST ONE VIEW PORTABLE CLINICAL HISTORY: 77 years-old Female presenting with CHEST PAIN, history of breast cancer. TECHNIQUE: Portable upright AP view of the chest was obtained. COMPARISON: 12/05/2017, 06/05/[address] from 05/14/2014. FINDINGS: Atherosclerosis of the aortic arch. Cardiac silhouette top normal in size. Irregular dense nodular opacity in the right lung base is unchanged and indeterminate. No other new focal opacity. No large effusion or pneumothorax. Heterogeneity of lung parenchyma with relative radiolucency of the upper lobes. Osseous structures normal. Upper abdomen normal. IMPRESSION: 1. Irregular nodular opacity at the right lung base is indeterminate an unchanged from prior but not visible on prior CT from 05/14/2014. Given the patient's underlying risk factor of emphysema, further evaluation with dedicated PA and lateral views of the chest versus chest CT should be obtained. The report will be called/faxed according to standard departmental protocol. Electronically signed by: Pranav Nicholson M.D. 02/06/2018 10:33 AM Dictated Date/Time: 02/06/2018 10:29 AM
[2018-02-06 10:37] LABS: ALBUMIN 3.7 gm/dl (3.4-5.0); ALT/SGPT 22 U/L (12-78); BLOOD UREA NITROGEN 18 mg/dl (7-18); CALCIUM 9.1 mg/dl (8.5-10.1); CARBON DIOXIDE 24 mmol/L (21-32); CREATININE 1.56 mg/dl (0.60-1.20); GLUCOSE 106 mg/dl (70-99); LIPASE 237 U/L (73-393); SODIUM 139 mmol/L (136-145)
[2018-02-06 10:42] LABS: ALKALINE PHOSPHATASE 104 U/L (45-117); AST/SGOT 21 U/L (15-37); TOTAL PROTEIN 7.5 gm/dl (6.4-8.2)
[2018-02-06] MEDS ORDERED: METOCLOPRAMIDE HCL INJ 5 MG/ML 2 ML VIAL IV STA (11:03)
[2018-02-06] MEDS ORDERED: DiphenhydrAMINE HCL 50 MG/ML VIAL IV STA (11:03)
[2018-02-06] MEDS ORDERED: ROFL1TAB5 PO (11:22)
[2018-02-06] MEDS ORDERED: CRS/10 PO (11:22)
--- NOTE | 2018-02-06 12:23 | DIAGNOSTIC IMAGING REPORT ---
Brain MRI WITHOUT CONTRAST HISTORY: vertigo TECHNIQUE: Multiplanar multisequence MRI of the brain was performed without the use of contrast. COMPARISON STUDY: Brain MRI 07/29/2015. FINDINGS: There is no mass, hematoma, midline shift, or acute infarct. The paranasal sinuses are clear. The mastoid air cells are clear. The ventricles and sulci demonstrate mild age-related involutional changes. Scattered foci of T2 hyperintensity seen within the periventricular and subcortical white matter are nonspecific but suggestive of mild microvascular ischemic changes. The major vascular flow voids at the skull base are well-maintained. 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 IMPRESSION: No significant change compared to the prior study. No acute intracranial abnormality. Electronically signed by: Kavon Yi M.D. 02/06/2018 12:21 PM Dictated Date/Time: 02/06/2018 12:13 PM
[2018-02-06] MEDS ORDERED: LETR2TAB PO (13:36)
[2018-02-06] MEDS ORDERED: B-COTAB18 PO (13:36)
[2018-02-06] MEDS ORDERED: ASPI81TA25 PO (13:47)
--- NOTE | 2018-02-06 13:58 | DIAGNOSTIC IMAGING REPORT ---
CHEST 2 VIEWS ROUTINE HISTORY: Right lung opacity. Follow-up. COMPARISON: Chest 02/06/2018. FINDINGS: No pleural effusions. No pneumothorax. The heart remains mildly enlarged. There is a tortuous thoracic aorta. The left lung is clear. Cholecystectomy. No evidence for pulmonary edema. Interstitial thickening seen within the lateral to the right mid to lower lung zone. 1.3 cm irregular density within the right lower lung zone persists. There is a possible 9 mm peripheral nodule within the right midlung zone. IMPRESSION: Indeterminate right lung abnormalities as described above. Nonemergent chest CT follow up is recommended for further characterization. Electronically signed by: Kavon Yi M.D. 02/06/2018 1:56 PM Dictated Date/Time: 02/06/2018 1:54 PM
[2018-02-06 14:33] LABS: INFLUENZA A PCR Neg for Influ A (NEG); INFLUENZA B PCR Neg for Influ B (NEG)
[2018-02-06 15:00] VITALS: BP 156/57; PULSE 72; O2SAT 96
[2018-02-06] MEDS ORDERED: MECL1TAB42 PO (15:05)
--- NOTE | 2018-02-06 15:06 | EMERGENCY ROOM VISIT NOTE ---
History Report prepared by Jasmin: Alden Stephens Under the Supervision of: Dr. Nestor Beal M.D. First contact with patient: 09:48 Chief Complaint: DIZZY Stated Complaint: DIZZY, SWEAT, NAUSEA, SHAKES History of Present Illness The patient is a 77 year old female who presents to the Emergency Room with complaints of constant dizziness beginning 1.5 hour ago. She also complains of diaphoresis, shakiness, shortness of breath, headache, generalized weakness, and nausea. She began vomiting en route. The patient has a history of similar "attacks" with uncertain cause. Nothing has improved her symptoms. The patient' s symptoms began suddenly while eating breakfast at the [employer]. She has a history of cardiac issues, vertigo and depression/anxiety (on medication). She states that her current dizziness does not feel like vertigo, as her normal vertigo typically feels like the room is spinning. The patient's most recent cardiac catheterization was 10 years ago. She has no cardiac stents placed. She denies cough, abdominal pain, urinary symptoms, fevers, or chills. The patient states that she felt normal prior to her episode. Source of History: patient Onset: 1.5 hours ago Quality: other (dizziness) Timing: constant Modifying Factors (Relieving): other (none) Associated Symptoms: + headache, + diaphoresis, + SOB, + nausea, + vomiting , + weakness (generalized), No fevers, No chills, No cough, No abdominal pain, No urinary symptoms Note: Additional symptoms: shakiness. Review of Systems See HPI for pertinent positives and negatives. A total of ten systems were reviewed and were otherwise negative. Past Medical & Surgical Medical Problems: (1) ACUTE PANCREATITIS (2) Acute pancreatitis (3) Anemia (4) Anxiety (5) Bipolar 1 disorder (6) Breast cancer (7) CHR AIRWAY OBSTRUCT NEC (8) Coronary artery disease (9) Degenerative joint disease (10) Depression (11) DEPRESSIVE DISORDER NEC (12) Hyperlipidemia (13) HYPERLIPIDEMIA NEC/NOS (14) Hypertension (15) HYPERTENSION NOS (16) PNA (pneumonia) (17) Sleep apnea (18) TUBAL LIGATION STATUS Surgical Problems: (1) H/O right knee surgery (2) Status post cholecystectomy (3) Status post hysterectomy Family History Cardiovascular disease Heart disease Social History Smoking Status: Former Smoker Alcohol Use: none Marital Status: Housing Status: lives with family Occupation Status: employed Current/Historical Medications Scheduled Aspirin (Aspir-Low), 162 TAB PO DAILY B-Complex Vitamins (Vitamin B Complex), 1 TAB PO DAILY Budesonide/Formoterol Fumarate (Symbicort 160/4.5 Inhaler ), 2 PUFFS INH BID Dexlansoprazole (Dexilant), 60 MG PO HS Home O2 Therapy (Oxygen), 2 LITERS NA HS Lamotrigine (Lamictal), 150 MG PO DAILY Letrozole (Femara), 2.5 MG PO DAILY Levalbuterol Tartrate (Levalbuterol Tartrate Hfa), 2 PUFFS INH BID Levothyroxine Sodium (Levothyroxine Sodium), 100 MCG PO HS Liothyronine Sodium (Liothyronine Sodium), 5 MCG PO DAILY Nebivolol Hcl (Bystolic), 5 MG PO DAILY Nitroglycerin (Nitrostat), 0.4 MG UT PRN Quetiapine Fumarate (Seroquel), 50 MG PO HS Quetiapine Fumarate (Quetiapine Fumarate ER), 150 MG PO HS Roflumilast (Daliresp), 500 MCG PO DAILY Rosuvastatin Calcium (Crestor), 10 MG PO DAILY Tiotropium Melrose (Spiriva Handihaler), 1 CAP INH DAILY Venlafaxine Hcl (Venlafaxine Hcl Er), 150 MG PO QAM Scheduled PRN Meclizine Hcl (Meclizine Hcl), 25 MG PO TID PRN for Dizziness Allergies Coded Allergies: Promethazine (Verified Allergy, Severe, TROUBLE FOCUSING & SPEAKING AT HIGHER DOSES, 02/06/18) Clopidogrel (Verified Allergy, Mild, HIVES, 02/06/18) Bupropion (Verified Allergy, Unknown, unknown, 02/06/18) Dicyclomine (Verified Allergy, Unknown, Glow, 02/06/18) Diltiazem (Verified Allergy, Unknown, Light headed, 02/06/18) Erythromycin (Verified Allergy, Unknown, EES, TAKES Z-PACKS W/O RXN, ) GAVE DIARRHEA Gabapentin (Verified Allergy, Unknown, "hands catch fire", 02/06/18) Losartan (Verified Allergy, Unknown, HIVES, 02/06/18) Metoclopramide (Verified Allergy, Unknown, ESSENTIAL TREMORS, 02/06/18) Micafungin (Verified Allergy, Unknown, rash, 02/06/18) Potassium Chloride (Verified Allergy, Unknown, Unknown, 02/06/18) Sucralfate (Verified Allergy, Unknown, Glow, 02/06/18) Sulfa Drugs (Verified Allergy, Unknown, SKIN BECOMES PHOTOSENSITIVE AND BECOMES RED, 02/06/18) Diazepam (Verified Adverse Reaction, Mild, DEPRESSION, 02/06/18) Amoxicillin (Verified Adverse Reaction, Unknown, DIARRHEA, 02/06/18) Clavulanic Acid (Verified Adverse Reaction, Unknown, DIARRHEA, 02/06/18) Hydrocodone (Verified Adverse Reaction, Unknown, CAN'T TOLERATE FOR LONG - "NOT ABLE TO FUNCTION", 02/06/18) [facility] RN SAID NOT A TRUE ALLERGY (01/16/04) Latex (Verified Adverse Reaction, Unknown, BANDAGE TAKES SKIN OFF, 12/05/17 ) INFO FROM [facility] Lisinopril (Verified Adverse Reaction, Unknown, COUGH, 02/06/18) Oxycodone (Verified Adverse Reaction, Unknown, INC. DEPRESSION, 02/06/18) PT REFUSED PERCOCET ON 01/16/04 SAID SHE HAD PAST ADDICTION PBS WITH IT. Penicillins (Verified Adverse Reaction, Unknown, AUGMENTIN=diarrhea, ) Physical Exam Vital Signs Date Time Temp Pulse Resp B/P (MAP) Pulse Ox O2 Delivery O2 Flow Rate FiO2 02/06/18 15:00 72 20 156/57 96 Room Air 02/06/18 14:10 71 18 152/97 99 Room Air 02/06/18 12:20 65 18 143/54 98 Room Air 02/06/18 11:04 63 18 155/79 99 Room Air 02/06/18 10:10 96 Room Air 02/06/18 10:10 81 02/06/18 10:04 81 02/06/18 09:49 36.6 93 20 136/88 92 Room Air Physical Exam GENERAL: Awake, alert, uncomfortable-appearing, in no distress HENT: Normocephalic, atraumatic. Oropharynx unremarkable other than dry mucous membranes. EYES: Normal conjunctiva. Sclera non-icteric. NECK: Supple. No nuchal rigidity. FROM. No JVD. RESPIRATORY: Clear to auscultation. CARDIAC: Regular rate, normal rhythm. Extremities warm and well perfused. Pulses equal. ABDOMEN: Soft, non-distended. No tenderness to palpation. No rebound or guarding. No masses. RECTAL: Deferred. MUSCULOSKELETAL: Chest examination reveals no tenderness. The back is symmetrical on inspection without obvious abnormality. There is no CVA tenderness to palpation. No joint edema. LOWER EXTREMITIES: Calves are equal size bilaterally and non-tender. No edema. No discoloration. NEURO: Normal sensorium. No sensory or motor deficits noted. normal cerebellar function with [id number], alternating palms SKIN: No rash or jaundice noted. Medical Decision & Procedures ER Provider Diagnostic Interpretation: Radiology results as stated below per my review and radiologist interpretation: CHEST ONE VIEW PORTABLE FINDINGS: Atherosclerosis of the aortic arch. Cardiac silhouette top normal in size. Irregular dense nodular opacity in the right lung base is unchanged and indeterminate. No other new focal opacity. No large effusion or pneumothorax. Heterogeneity of lung parenchyma with relative radiolucency of the upper lobes. Osseous structures normal. Upper abdomen normal. IMPRESSION: 1. Irregular nodular opacity at the right lung base is indeterminate an unchanged from prior but not visible on prior CT from 05/14/2014. Given the patient's underlying risk factor of emphysema, further evaluation with dedicated PA and lateral views of the chest versus chest CT should be obtained. The report will be called/faxed according to standard departmental protocol. Electronically signed by: Pranav Nicholson M.D. 02/06/2018 10:33 AM CHEST 2 VIEWS ROUTINE FINDINGS: No pleural effusions. No pneumothorax. The heart remains mildly enlarged. There is a tortuous thoracic aorta. The left lung is clear. Cholecystectomy. No evidence for pulmonary edema. Interstitial thickening seen within the lateral to the right mid to lower lung zone. 1.3 cm irregular density within the right lower lung zone persists. There is a possible 9 mm peripheral nodule within the right midlung zone. IMPRESSION: Indeterminate right lung abnormalities as described above. Nonemergent chest CT follow up is recommended for further characterization. Electronically signed by: Kavon Yi M.D. 02/06/2018 1:56 PM Brain MRI WITHOUT CONTRAST FINDINGS: There is no mass, hematoma, midline shift, or acute infarct. The paranasal sinuses are clear. The mastoid air cells are clear. The ventricles and sulci demonstrate mild age-related involutional changes. Scattered foci of T2 hyperintensity seen within the periventricular and subcortical white matter are nonspecific but suggestive of mild microvascular ischemic changes. The major vascular flow voids at the skull base are well-maintained. 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 IMPRESSION: No significant change compared to the prior study. No acute intracranial abnormality. Electronically signed by: Kavon Yi M.D. 02/06/2018 12:21 PM Laboratory Results 02/06/18 10:10 Red Blood Count 3.84, Mean Corpuscular Volume 90.1, Mean Corpuscular Hemoglobin 30.5, Mean Corpuscular Hemoglobin Concent 33.8, Mean Platelet Volume 8.9, Neutrophils (%) (Auto) 51.2, Lymphocytes (%) (Auto) 32.5, Monocytes (%) (Auto) 13.4, Eosinophils (%) (Auto) 2.3, Basophils (%) (Auto) 0.5, Neutrophils # (Auto ) 3.75, Lymphocytes # (Auto) 2.38, Monocytes # (Auto) 0.98, Eosinophils # (Auto ) 0.17, Basophils # (Auto) 0.04 02/06/18 10:10 Test 02/06/18 10:10 02/06/18 10:50 02/06/18 12:55 White Blood Count 7.33 K/uL (4.8-10.8) Red Blood Count 3.84 M/uL (4.2-5.4) Hemoglobin 11.7 g/dL (12.0-16.0) Hematocrit 34.6 % (37-47) Mean Corpuscular Volume 90.1 fL (80-100) Mean Corpuscular Hemoglobin 30.5 pg (25-34) Mean Corpuscular Hemoglobin Concent 33.8 g/dl (32-36) Platelet Count 162 K/uL (130-400) Mean Platelet Volume 8.9 fL (7.4-10.4) Neutrophils (%) (Auto) 51.2 % Lymphocytes (%) (Auto) 32.5 % Monocytes (%) (Auto) 13.4 % Eosinophils (%) (Auto) 2.3 % Basophils (%) (Auto) 0.5 % Neutrophils # (Auto) 3.75 K/uL (1.4-6.5) Lymphocytes # (Auto) 2.38 K/uL (1.2-3.4) Monocytes # (Auto) 0.98 K/uL (0.11-0.59) Eosinophils # (Auto) 0.17 K/uL (0-0.5) Basophils # (Auto) 0.04 K/uL (0-0.2) RDW Standard Deviation 45.6 fL (36.4-46.3) RDW Coefficient of Variation 13.8 % (11.5-14.5) Immature Granulocyte % (Auto) 0.1 % Immature Granulocyte # (Auto) 0.01 K/uL (0.00-0.02) Prothrombin Time 10.7 SECONDS (9.0-12.0) Prothromb Time International Ratio 1.0 (0.9-1.1) Anion Gap 9.0 mmol/L (3-11) Est Creatinine Clear Calc Drug Dose 28.8 ml/min Estimated GFR () 37.3 Estimated GFR (Non- 32.2 BUN/Creatinine Ratio 11.8 (10-20) Calcium Level 9.1 mg/dl (8.5-10.1) Magnesium Level 2.4 mg/dl (1.8-2.4) Total Bilirubin 0.4 mg/dl (0.2-1) Direct Bilirubin 0.1 mg/dl (0-0.2) Aspartate Amino Transf (AST/SGOT) 21 U/L (15-37) Alanine Aminotransferase (ALT/SGPT) 22 U/L (12-78) Alkaline Phosphatase 104 U/L (45-117) Troponin I < 0.015 ng/ml (0-0.045) Total Protein 7.5 gm/dl (6.4-8.2) Albumin 3.7 gm/dl (3.4-5.0) Lipase 237 U/L (73-393) Urine Color DK YELLOW Urine Appearance CLOUDY (CLEAR) Urine pH 5.0 (4.5-7.5) Urine Specific [place] 1.029 (1.000-1.030) Urine Protein 1+ (NEG) Urine Glucose (UA) NEG (NEG) Urine Ketones TRACE (NEG) Urine Occult Blood NEG (NEG) Urine Nitrite NEG (NEG) Urine Bilirubin NEG (NEG) Urine Urobilinogen NEG (NEG) Urine Leukocyte Esterase MODERATE (NEG) Urine WBC (Auto) >30 /hpf (0-5) Urine RBC (Auto) 0-4 /hpf (0-4) Urine Hyaline Casts (Auto) 10-30 /lpf (0-5) Urine Epithelial Cells (Auto) >30 /lpf (0-5) Urine Bacteria (Auto) NEG (NEG) Urine Renal Epithelial Cells 0-5 /lpf (0-5) Urine Pathogenic Casts 0-3 GRANULAR CASTS /lpf (0) Influenza Type A (RT-PCR) Neg for Influ A (NEG) Influenza Type B (RT-PCR) Neg for Influ B (NEG) Laboratory results reviewed by me Medications Administered Medications (Trade) Dose Ordered Sig/Brent Route Start Time Stop Time Status Last Admin Dose Admin Sodium Chloride 1,000 ml @ 999 mls/hr Q1H1M STAT IV 02/06/18 09:53 02/06/18 10:53 DC 02/06/18 10:27 999 MLS/HR Ondansetron HCl (Zofran Inj) 4 mg NOW STAT IV 02/06/18 09:53 02/06/18 09:57 DC 02/06/18 10:30 4 MG Metoclopramide HCl (Reglan Inj) 10 mg NOW STAT IV 02/06/18 11:03 02/06/18 11:04 DC 02/06/18 11:17 10 MG Diphenhydramine HCl (Benadryl Inj) 25 mg NOW STAT IV 02/06/18 11:03 02/06/18 11:04 DC 02/06/18 11:17 25 MG Sodium Chloride 1,000 ml @ 999 mls/hr Q1H1M STAT IV 02/06/18 12:37 02/06/18 13:37 DC 02/06/18 13:03 999 MLS/HR ECG Per My Interpretation Indication: other (dizziness) Rate (beats per minute): 75 Rhythm: sinus rhythm Findings: PVC, other (Normal axis. No ST elevation. ) ED Course 0950: The patient was evaluated in room B2. A complete history and physical exam was performed. 0953: Ordered Zofran Inj 4 mg IV, Sodium Chloride 1000 ml @ 999 mls/hr IV. 1450: I reevaluated the patient. Discussed results and discharge instructions: she verbalized understanding and agreement. The patient is ready for discharge. Medical Decision I reviewed the patient's past medical history, medications, and the nursing notes as described above. Differential diagnosis: Etiologies such as infections, reactive airway disease, pneumonia, pneumothorax , COPD, CHF, cardiac ischemia, pulmonary embolism, musculoskeletal, gastrointestinal, as well as others were entertained. The patient is a 77-year-old woman with a past medical history of vertigo who presents to the emergency department with nausea vomiting lightheadedness and shortness of breath that occurred 1 hour prior to arrival when she was at the [employer] per hpi. On arrival, the patient is uncomfortable but no acute distress, afebrile stable vital signs. She is neurologically intact includingnormal cerebellar function with [id number], alternating palms. No nystagmus or inducible vertigo. EKG unremarkable. CXR with nonspecific nodule and otherwise negative. WBC within normal limits. Creatinine 1.5 at patient's baseline. However, BUN/creatinine > 30 consistent with mild dehydration consistent with patient's clinically dry appearance. Given the patient's clinical presentation of lightheadedness versus vertigo concern for possible central process. MRI performed and was negative. Patient subsequently improved after further IV fluid hydration, Reglan and Benadryl. Flu negative. Unclear etiology to the patient's symptoms however possibly vertigo versus gastritis. Patient will follow up with her PCP. Already has Zofran at home. Findings and plan for follow-up reviewed with patient. Patient agreeable and d/c 'd per discharge instructions. Medication Reconcilliation Current Medication List: was personally reviewed by me Blood Pressure Screening Patient's blood pressure: Elevated blood pressure Blood pressure disposition: Referred to PCP Impression Primary Impression: Dizziness Additional Impression: Nausea & vomiting Scribe Attestation The scribe's documentation has been prepared under my direction and personally reviewed by me in its entirety. I confirm that the note above accurately reflects all work, treatment, procedures, and medical decision making performed by me. Departure Information Dispostion Home / Self-Care Prescriptions Meclizine Hcl (MECLIZINE HCL) 25 Mg Tab 25 MG PO TID Y for Dizziness, #21 TAB Prov: Nestor Beal M.D. 02/06/18 Referrals Abiel Clark M.D. (PCP) Patient Instructions Dizziness Fainting Poss Causes, ED Dizziness [facility], ED Nausea Vomiting, ED Vertigo Unspecified, My [facility] Additional Instructions Please follow up with your primary care physician in the next 1-3 days for re- evaluation. The cause of your symptoms is unclear at this time. Otherwise, your exam, EKG, chest xray, lab results, and MRI of your brain did not show signs of an emergent condition at this time. Zofran as needed for nausea. Meclizine as needed for dizziness or vertigo. Drink plenty of fluids to ensure hydration. Return to the emergency department for worsening symptoms as described in the accompanying instructions. Problem Qualifiers
[2018-02-06] MEDS ORDERED: VENL150T33 PO (15:46)
[2018-02-06] MEDS ORDERED: LAMO150T PO (17:47)
[2018-02-06] MEDS ORDERED: QUET150T4 PO (19:26)
[2018-02-06] MEDS ORDERED: LEVO100T7 PO (19:26)
[2018-02-06] MEDS ORDERED: QUET5TAB PO (19:26)
[2018-02-06] MEDS ORDERED: BYS/5 PO (19:26)
[2018-02-06] MEDS ORDERED: OXGN (19:26)
[2018-02-06] MEDS ORDERED: LEVA45AE INH (19:30)
[2018-02-06] MEDS ORDERED: SYMIN160 INH (19:32)
[2018-02-06] MEDS ORDERED: SPRIN/30 INH (19:32)
[2018-02-06] MEDS ORDERED: DEXL60CA4 PO (22:41)
[2018-02-06] MEDS ORDERED: NTRGSL/4 UT (22:51)
== END 2018-02-06 15:15 | disposition home or self-care (01) ==
LOC: C.EDB 09:39
DX: R42 Dizziness and giddiness (principal); R11.2 Nausea with vomiting, unspecified; F41.9 Anxiety disorder, unspecified; F31.9 Bipolar disorder, unspecified; J44.9 Chronic obstructive pulmonary disease, unspecified; I25.10 Atherosclerotic heart disease of native coronary artery without angina pectoris; F32.9 Major depressive disorder, single episode, unspecified; E78.5 Hyperlipidemia, unspecified; I10 Essential (primary) hypertension; G47.30 Sleep apnea, unspecified; Z82.49 Family history of ischemic heart disease and other diseases of the circulatory system; Z87.891 Personal history of nicotine dependence; Z79.82 Long term (current) use of aspirin; Z88.8 Allergy status to other drugs, medicaments and biological substances; Z88.2 Allergy status to sulfonamides; Z88.5 Allergy status to narcotic agent; Z91.040 Latex allergy status; Z88.0 Allergy status to penicillin

== ENCOUNTER → 2018-02-25 | Outpatient (CLI) | payer BC ==
[~2018-02-25] MED LIST changes: +ASPI81TA25 PO; +B-COTAB18 PO; -BXN500 PO; +BYS/5 PO; +CRS/10 PO; +DEXL60CA4 PO; +LAMO150T PO; +LETR2TAB PO; +LEVA45AE INH; +LEVO100T7 PO; +LIOT5TAB9 PO; +MECL1TAB42 PO; +NTRGSL/4 UT; +OPTIRAY 320 IV PRN; +OXGN; -OXYC-57 PO; +QUET150T4 PO; +QUET5TAB PO; +ROFL1TAB5 PO; +SPRIN/30 INH; +SYMIN160 INH; +VENL150T33 PO
--- NOTE | 2018-02-25 10:25 | DIAGNOSTIC IMAGING REPORT ---
CHEST CT WITH CONTRAST CT DOSE: 381.17 mGy.cm HISTORY: Follow-up lung abnormality on chest x-ray. TECHNIQUE: Multiaxial CT images of the chest were performed following the intravenous administration of contrast. A dose lowering technique was utilized adhering to the principles of ALARA. COMPARISON: Chest CTA 05/14/2014. FINDINGS: The central airways are patent. Moderate emphysema. No pleural effusions. No pneumothorax. A few linear scarlike densities within the periphery the right middle lobe. This likely accounts for the abnormality on the prior chest x-ray. No focal lung consolidations. No suspicious bone nodules. No suspicious lytic or blastic osseous lesions. Small hiatus hernia. Cholecystectomy. The adrenal glands are unremarkable. Calcification within the right thyroid gland. No mediastinal or hilar lymphadenopathy. A few calcified right hilar lymph nodes. The heart is normal in size. Postoperative changes within the right breast. Normal caliber thoracic aorta with no evidence for dissection. The central pulmonary arteries are patent. IMPRESSION: 1. Mild emphysema. 2. A few linear scarlike densities within the right middle lobe. No focal lung consolidations. 3. Small hiatus hernia. Electronically signed by: Kavon Yi M.D. 02/25/2018 10:23 AM Dictated Date/Time: 02/25/2018 9:55 AM
== END | disposition home or self-care (01) ==
LOC: C.CTS 09:26
PROVIDERS: ATTEND Family Medicine
DX: R91.1 Solitary pulmonary nodule (principal); R91.8 Other nonspecific abnormal finding of lung field; K44.9 Diaphragmatic hernia without obstruction or gangrene

== ENCOUNTER → 2018-03-04 | Outpatient (CLI) | payer BC ==
[2017-02-05 13:25] VITALS: BP 112/76; PULSE 87
[~2018-03-04] MED LIST changes: -OPTIRAY 320 IV PRN
[2018-03-04 14:10] VITALS: BP 141/79; PULSE 78; TEMP 37.2; O2SAT 97
--- NOTE | 2018-03-04 15:10 | Radiation Oncology Follow-Up ---
Radiation Oncology Follow-Up Date of Visit Mar 04, 2018. Reason For Visit Annual follow-up Radiation Completion Date 12/24/14 Diagnosis (1) Breast cancer Status: Resolved Onset Date: 08/23/2014 Location: Right breast Histology Subtype: Ductal Stage: l Permanent Comment: Abnormal bilateral mammogram Status post core needle biopsy 08/23/2014 revealing intraductal papilloma on the left Right breast showed invasive ductal carcinoma Status post right lumpectomy and sentinel lymph node biopsy 10/08/2014 Stage [id number] Status post completion of radiation therapy 12/24/2014 utilizing hypo- fractionation received 5000 cGy Last Edited By: Brandy Damon on Aug 04, 2015 15:23 Interim History She is noted no changes to her breast over this past year. She has noticed no masses or tenderness and no change of the axilla. She has had no swelling of her arm. She is up-to-date on mammography. She had a mammogram December 19, 2017. There is no mammographic evidence of malignancy. One-year screening mammogram was recommended. 7 months ago she had a bout of pneumonia. She had a chest x-ray and then a CT. The CT showed pulmonary nodule. Today she had a follow-up appointment with her primary provider. She had a recheck CT and the nodule has resolved. With being ill for the pneumonia and the worry of the possible nodule potentially being a cancer she stopped smoking. She has been smoke-free for 7 months. She does not plan on restarting. Allergies Coded Allergies: Promethazine (Verified Allergy, Severe, TROUBLE FOCUSING & SPEAKING AT HIGHER DOSES, 02/06/18) Clopidogrel (Verified Allergy, Mild, HIVES, 02/06/18) Bupropion (Verified Allergy, Unknown, unknown, 02/06/18) Dicyclomine (Verified Allergy, Unknown, Glow, 02/06/18) Diltiazem (Verified Allergy, Unknown, Light headed, 02/06/18) Erythromycin (Verified Allergy, Unknown, EES, TAKES Z-PACKS W/O RXN, ) GAVE DIARRHEA Gabapentin (Verified Allergy, Unknown, "hands catch fire", 02/06/18) Losartan (Verified Allergy, Unknown, HIVES, 02/06/18) Metoclopramide (Verified Allergy, Unknown, ESSENTIAL TREMORS, 02/06/18) Micafungin (Verified Allergy, Unknown, rash, 02/06/18) Potassium Chloride (Verified Allergy, Unknown, Unknown, 02/06/18) Sucralfate (Verified Allergy, Unknown, Glow, 02/06/18) Sulfa Drugs (Verified Allergy, Unknown, SKIN BECOMES PHOTOSENSITIVE AND BECOMES RED, 02/06/18) Diazepam (Verified Adverse Reaction, Mild, DEPRESSION, 02/06/18) Amoxicillin (Verified Adverse Reaction, Unknown, DIARRHEA, 02/06/18) Clavulanic Acid (Verified Adverse Reaction, Unknown, DIARRHEA, 02/06/18) Hydrocodone (Verified Adverse Reaction, Unknown, CAN'T TOLERATE FOR LONG - "NOT ABLE TO FUNCTION", 02/06/18) [facility] RN SAID NOT A TRUE ALLERGY (01/16/04) Latex (Verified Adverse Reaction, Unknown, BANDAGE TAKES SKIN OFF, 12/05/17 ) INFO FROM [facility] Lisinopril (Verified Adverse Reaction, Unknown, COUGH, 02/06/18) Oxycodone (Verified Adverse Reaction, Unknown, INC. DEPRESSION, 02/06/18) PT REFUSED PERCOCET ON 01/16/04 SAID SHE HAD PAST ADDICTION PBS WITH IT. Penicillins (Verified Adverse Reaction, Unknown, AUGMENTIN=diarrhea, ) Home Medications Scheduled Aspirin (Aspir-Low), 162 TAB PO DAILY B-Complex Vitamins (Vitamin B Complex), 1 TAB PO DAILY Budesonide/Formoterol Fumarate (Symbicort 160/4.5 Inhaler ), 2 PUFFS INH BID Dexlansoprazole (Dexilant), 60 MG PO HS Home O2 Therapy (Oxygen), 2 LITERS NA HS Lamotrigine (Lamictal), 150 MG PO DAILY Letrozole (Femara), 2.5 MG PO DAILY Levalbuterol Tartrate (Levalbuterol Tartrate Hfa), 2 PUFFS INH BID Levothyroxine Sodium (Levothyroxine Sodium), 100 MCG PO HS Liothyronine Sodium (Liothyronine Sodium), 5 MCG PO DAILY Nebivolol Hcl (Bystolic), 5 MG PO DAILY Nitroglycerin (Nitrostat), 0.4 MG UT PRN Quetiapine Fumarate (Seroquel), 50 MG PO HS Quetiapine Fumarate (Quetiapine Fumarate ER), 150 MG PO HS Roflumilast (Daliresp), 500 MCG PO DAILY Rosuvastatin Calcium (Crestor), 10 MG PO DAILY Tiotropium [place] (Spiriva Handihaler), 1 CAP INH DAILY Venlafaxine Hcl (Venlafaxine Hcl Er), 150 MG PO QAM Scheduled PRN Meclizine Hcl (Meclizine Hcl), 25 MG PO TID PRN for Dizziness Review of Systems Gastrointestinal: Symptoms: WNL GI Comments: to have a colonoscopy March 05, 2017 Oral: Symptoms: No Problems Respiratory: Symptoms: WNL Respiratory Comments: pt wears o2 2L nasal cannula HS x years Sputum Character: white to clear sputum Other Respiratory: o@ saturation decreases to 70 ` s during the night, wears o2 2 Liters at ni Urinary: Symptoms: WNL Skin: Symptoms: No Problems Other Skin Symptoms: right side of breast dry and slightly pink, growth on right nipple Breast: Right Upper Arm Measurement: 35.5 Right Mid Arm Measurement: 26.5 Right Wrist Measurement: 16.5 Left Upper Arm Measurement: 34.0 Left Mid Arm Measurement: 27.0 Left Wrist Measurement: 17.0 Arm Dominence: Right Patient Cosmetic Evaluation: Excellent Staff Cosmetic Evalaluation: Excellent Physical Exam Vital Signs Date Time Temp Pulse Resp B/P (MAP) Pulse Ox O2 Delivery O2 Flow Rate FiO2 03/04/18 14:10 37.2 78 22 141/79 97 Fatigue: None Eyes: normal inspection, EOMI ENT: normal ENT inspection, hearing grossly normal Neck: no adenopathy, thyroid normal Respiratory/Chest: lungs clear, no respiratory distress, no accessory muscle use Breast: Breast examination reveals well-healed incisions of the right breast. There is a deficit in the lower outer quadrant. There are fibrous changes. These changes are improved compared to last year. Previously had marked firmness in the central portion of the incision and this has improved. There is no tenderness. There are no distinct masses. She has no axillary adenopathy. Using the [place] score of cosmesis she has a fair outcome. The left breast showed no masses or tenderness and no axillary adenopathy. Cardiovascular: regular rate, rhythm, no gallop, no murmur Extremities: no pedal edema Neurologic/Psychiatric: no motor/sensory deficits, alert, normal mood/affect Skin: warm/dry Pain Management Patient Reports Pain: No Side: Bilateral Pain Location: None Patient Preferred Pain Scale: 0 - 10 Initial Pain Intensity: 0.0 Pain Management Plan She denies pain therefore requires no pain management. Laboratory Laboratory Results: not applicable Pathology Pathology Results: not applicable Imaging Imaging Studies: were reviewed, and pertinent findings noted below Imaging Comments Patient: NELLIE ANDERSON [facility] Rec: [id number] Address1: [address] Address2: Acct ID: [id number] Date: 1940 Sex: F Ref Phy: Abiel Clark M.D. Att Phy: Lc Delgadillo M.D. Leatha Phy: Abiel Clark M.D. 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 CC: Lc Delgadillo M.D. CONF: DICTATED BY: Mandy Edward MD MAMMOGRAPHY REPORT BILATERAL DIGITAL SCREENING MAMMOGRAM TOMOSYNTHESIS WITH CAD: 12/19/2017 CLINICAL HISTORY: Asymptomatic. Personal history of breast cancer. TECHNIQUE: Breast tomosynthesis in addition to standard 2D mammography was performed. Current study was also evaluated with a Computer Aided Detection (CAD ) system. COMPARISON: Comparison is made to exams dated: 11/29/2016 mammogram, 11/29/2016 mammogram, 11/16/2015 ultrasound, 10/18/2015 breast MRI, 10/03/2015 mammogram, and 08/11/2014 ultrasound - [facility]. BREAST COMPOSITION: There are scattered areas of fibroglandular density in both breasts. FINDINGS: No suspicious masses, calcifications, or areas of architectural distortion are noted in either breast. There has been no significant interval change compared to prior exams. There are stable postoperative changes bilaterally. Bilateral benign-appearing calcifications are not significantly changed. IMPRESSION: ACR BI-RADS CATEGORY 2: BENIGN There is no mammographic evidence of malignancy. A 1 year screening mammogram is recommended. The patient will receive written notification of the results. Approximately 10% of breast cancers are not detected with mammography. A negative mammographic report should not delay biopsy if a clinically suggestive mass is present. Mandy Edward M.D. ah/:12/19/2017 14:36:30 Box Sealing Machine Catcher: Yolie Jones, [facility] letter sent: Normal 1/2 BI-RADS Code: ACR BI-RADS Category 2: Benign Dictated by: Mandy Edward MD Signed by: Mandy Edward MD Assessment & Plan Plan: Continue with annual mammography. Continue regular follow-up with Dr. Clark and Dr. Urbano. We asked her to return to our office in 1 year. She may call if she has any questions or concerns in the interim. She will continue to stay away from cigarette smoking. She may call our office if she has any questions or concerns in the interim. Total Time In Follow-Up I spent 20 minutes speaking to the patient in performing examination. I spent 15 minutes reviewing information and completing this note. Copy To Abiel Clark M.D. Problem Qualifiers (1) Breast cancer: Breast location: central portion of breast Patient sex: female Laterality: right
== END | disposition home or self-care (01) ==
LOC: C.ONC 14:01
PROVIDERS: ATTEND Physician Assistant Medical
DX: Z08 Encounter for follow-up examination after completed treatment for malignant neoplasm (principal); Z92.3 Personal history of irradiation; Z85.3 Personal history of malignant neoplasm of breast

== ENCOUNTER → 2018-03-25 | Outpatient (CLI) | payer BC ==
[2018-03-25 14:02] LABS: BASO % 0.6 %; BASO ABS # 0.04 K/uL (0-0.2); EOS ABS # 0.14 K/uL (0-0.5); HEMATOCRIT 34.8 % (37-47); HEMOGLOBIN 11.4 g/dL (12.0-16.0); IG# 0.02 K/uL (0.00-0.02); LYMPH % 32.3 %; LYMPH ABS # 2.23 K/uL (1.2-3.4); MEAN CELL VOLUME 91.8 fL (80-100); MEAN CORPUSCULAR HEMOGLOBIN 30.1 pg (25-34); MEAN CORPUSCULAR HGB CONC 32.8 g/dl (32-36); MEAN PLATELET VOLUME 9.6 fL (7.4-10.4); MONO % 11.6 %; NEUT % 53.2 %; NEUT ABS # 3.68 K/uL (1.4-6.5); PLATELET COUNT 208 K/uL (130-400); RED CELL DISTRIBUTION WIDTH CV 13.8 % (11.5-14.5); RED CELL DISTRIBUTION WIDTH SD 45.3 fL (36.4-46.3); WHITE BLOOD COUNT 6.91 K/uL (4.8-10.8)
[2018-03-25 14:16] LABS: HEMOGLOBIN A1C 5.7 % (4.5-5.6)
[2018-03-25 15:01] LABS: ALBUMIN 3.6 gm/dl (3.4-5.0); ALT/SGPT 26 U/L (12-78); AST/SGOT 25 U/L (15-37); BLOOD UREA NITROGEN 14 mg/dl (7-18); CALCIUM 8.8 mg/dl (8.5-10.1); CARBON DIOXIDE 26 mmol/L (21-32); CHOLESTEROL 155 mg/dl (0-200); CREATININE 1.48 mg/dl (0.60-1.20); GLUCOSE 99 mg/dl (70-99); POTASSIUM 4.3 mmol/L (3.5-5.1); SODIUM 140 mmol/L (136-145); URIC ACID 5.1 mg/dl (2.6-7.2)
[2018-03-25 15:11] LABS: ALKALINE PHOSPHATASE 106 U/L (45-117); LDL CHOLESTEROL CALCULATED 73 mg/dl; TOTAL PROTEIN 7.6 gm/dl (6.4-8.2); TRANSFERRIN 304 mg/dl (200-360)
== END | disposition home or self-care (01) ==
LOC: C.LABBC 10:08
PROVIDERS: ATTEND Family Medicine
DX: E88.81 Metabolic syndrome and other insulin resistance (principal); E55.9 Vitamin D deficiency, unspecified; D51.9 Vitamin B12 deficiency anemia, unspecified; E78.9 Disorder of lipoprotein metabolism, unspecified; R53.83 Other fatigue

== ENCOUNTER 2021-03-07 16:11 | Inpatient (IN) ==
[2021-03-07] MEDS ORDERED: ONDANSETRON INJ 2 MG/ML 2 ML VIAL IV STA (16:24)
[2021-03-07] MEDS ORDERED: fentaNYL citrate 100 MCG/2 ML VIAL IV STA ×2 (16:24→17:25)
--- NOTE | 2021-03-07 16:33 | Emergency Department Note ---
Impression & Plan Fall, Closed fracture of left hip ED Provider Note Provider: Farhan Boss MD DATE OF SERVICE: 03/07/2021 CHIEF COMPLAINT: Fall, hip pain HISTORY OF PRESENT ILLNESS: Patient is a 80-year-old female with a past medical history including CAD with history of stents, COPD, hypertension, hypothy roidism, and bipolar disorder presenting today after a fall she experienced while shopping. Patient was evidently leaving [employer] store and tripped on a high curb into a landscape. Next to her parking space. Patient states he fell landing on her predominately left side with severe pain in her left hip. Patient is been able to walk since this occurred. Happened just prior to arrival. EMS was called and brought the patient here for further care; patient did receive some fentanyl and Zofran which patient states did transiently help with pain. Patient denies striking her head. She denies any head, neck, back, chest, or abdominal pain. She states there is a shooting pain into her left thigh and a little bit of numbness in her left foot but she feels gross touch. Patient states she is unable move her left leg due to severe pain in left hip area. Denies a history of injury to this left hip or prior surgeries here. Patient states she does follow with orthopedics for her right shoulder injury previously. Patient denies the use of anticoagulants to me. REVIEW OF SYSTEMS: A total of 10 review of systems was obtained and negative except as stated above in the HPI. PAST MEDICAL HISTORY: As noted above MEDICATIONS: Reviewed home medication list SOCIAL HISTORY: Smoker, , lives at home PHYSICAL EXAM: GENERAL: alert and oriented on the stretcher with her left leg flexed appearing uncomfortable Head: normocephalic and atraumatic EYES: No injection, discharge or icterus. PERRL. NECK: Trachea midline. Supple. LUNGS: Airway patent. No retractions. Breath sounds clear anteriorly HEART: Regular rate and rhythm. No chest wall tenderness ABDOMEN: Soft and non-tender, without guarding or rebound. BACK: No bilateral flank tenderness. SKIN: Acyanotic, warm, dry, without rashes EXTREMITIES: Without swelling, tenderness or deformity except for tenderness o gen the left hip/greater trochanteric area extending with any range of motion of the left hip. No significant tenderness of the left mid thigh, knee, left calf, or left foot. 1+ bilateral DP pulses present. Feels gross touch in the bilateral feet. Trace bilateral pedal edema of the legs. NEUROLOGICAL: No focal deficits. No aphasia. No facial droop or slurred speech. EK bpm sinus bradycardia with a PVC or PAC. No acute ST segment elevation or depression. QTC 423. CONTINUOUS CARDIAC MONITORING: was ordered and showed a heart rate of 50s to 60s bpm in sinus bradycardia to normal sinus rhythm GCS 15. Patient's laboratory studies and imaging reviewed. Differential includes Fracture, dislocation, contusion, intra-abdominal, pneumothorax, intrathoracic, intracranial, neurologic, compartment syndrome, rhabdomyolysis, as well as other pathologies. IMPRESSION/MEDICAL DECISION MAKING: Patient presents after mechanical fall today with severe left hip pain. Given additional pain medicine and antiemetic here x-rays obtained. Patient denies striking her head or head or neck or upper extremity pain. Given this do not feel that we need a CT of the head or cervical spine. Patient denies any difficulty breathing or chest pain or abdominal discomfort again and do not feel given the mechanism we need additional imaging here beyond a chest x-ray and a pelvis and hip x-ray. High concern for hip fracture or pelvis injury. X-rays obtained. States she has some shooting pain down her left leg as well as some numbness in left foot however feels gross touch. Basic labs were obtained. Anemia just slightly below baseline but not hypotensive and I doubt acute blood loss anemia. Renal function slightly worse than recent in November. Patient states she has not been taking her aspirin at home is not on anticoagulants or antiplatelet agents. X-ray shows evidence of a left hip fracture and discussed with orthopedics on-call for group. Patient was informed of the findings and need for surgical intervention. Some IV acetaminophen is ordered in addition to multiple dose of fentanyl to help with her pain. Patient again having a little bit of tingling in the left leg but feels gross touch and has a palpable pulse of the left foot. Discussed with the hospitalist for further care. DIAGNOSIS: Left hip fracture, fall DISPOSITION: Hospitalist will evaluate Patient was agreeable with this plan. Past Med/Surg History Medical History (Updated 03/07/21 @ 22:32 by Farhan Boss M.D.) Anemia REASON FOR COLONOSCOPY 07/2019 Bipolar 1 disorder Breast cancer, right 2013--stage 1--lumpectomy and radiation CAD (coronary artery disease) Chronic obstructive pulmonary disease inhaler daily Degenerative joint disease Depression History of colon polyps Hyperlipidemia Hypertension Hypothyroidism Medical marijuana use Myocardial Infarction "silent" in --follows with Dr. Gibbs On home oxygen therapy 2L N/C at hs Pancreatitis hx of Papilloma of breast left Sleep apnea Temporal arteritis Unstable angina Surgical History History of bilateral cataract extraction History of bilateral tubal ligation History of breast surgery removal of papilloma of left breast History of cardiac cath x3--last ---no stents History of cholecystectomy History of colonoscopy History of esophagogastroduodenoscopy (EGD) History of lumpectomy of right breast History of right breast biopsy malignant History of tooth extraction all teeth removed History of total hysterectomy with bilateral salpingo-oophorectomy (BSO) Family History Grandfather (Paternal) Family history of diabetes mellitus Other No family history of adverse response to anesthesia Social History Smoking Status: Never smoker Cigarettes Per Day: 20 a day; Second Hand Exposure: Yes (parents smoked); Do You Dip or Chew Tobacco: No; Hx Alcohol Use: Yes Alcohol type: wine Hx Substance Use: No Preferred Language: Welsh Communication Ability: Effective 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 Beliefs That Will Affect Care: None Current Living Situation: Spouse Other Information That Helps Us Care for You: No Feels Safe at Home: Yes Safety Concerns: Feels Safe At This Time Assistive Devices: Denture - Upper, Denture - Lower and Glasses Allergies Allergies Allergy/AdvReac Type Severity Reaction Status Date / Time metoclopramide Allergy Intermediate ESSENTIAL Verified 03/07/21 17:12 TREMORS clopidogrel Allergy Mild HIVES Verified 03/07/21 17:12 diazepam Allergy Mild DEPRESSION Verified 03/07/21 17:12 diltiazem Allergy Mild Light Verified 03/07/21 17:12 headed erythromycin base Allergy Mild EES, TAKES Verified 03/07/21 17:12 Z-PACKS W/O RXN gabapentin Allergy Mild States Verified 03/07/21 17:12 hands catch fire latex Allergy Mild rips skin Verified 03/07/21 17:12 off lisinopril Allergy Mild COUGH Verified 03/07/21 17:12 losartan Allergy Mild HIVES Verified 03/07/21 17:12 micafungin Allergy Mild rash Verified 03/07/21 17:12 oxycodone Allergy Mild INC. Verified 03/07/21 17:12 DEPRESSION Penicillins Allergy Mild Diarrhea Verified 03/07/21 17:12 promethazine Allergy Mild TROUBLE Verified 03/07/21 17:12 FOCUSING SPEAKING AT HIGHER DOSES Sulfa (Sulfonamide Allergy Mild SKIN Verified 03/07/21 17:12 Antibiotics) BECOMES PHOTOSENSITIVE AND BECOMES RED bupropion Allergy Unknown unknown Verified 03/07/21 17:12 dicyclomine Allergy Unknown Unknown Verified 03/07/21 17:12 potassium chloride Allergy Unknown Unknown Verified 03/07/21 17:12 sucralfate Allergy Unknown Unknown Verified 03/07/21 17:12 [id number] Reductase AdvReac Intermediate Diarrhea Verified 03/07/21 21:01 Inhibitor amoxicillin AdvReac Mild DIARRHEA Verified 03/07/21 17:12 clavulanic acid AdvReac Mild DIARRHEA Verified 03/07/21 17:12 hydrocodone AdvReac Mild "dont like Verified 03/07/21 17:12 how it makes me feel" Home Meds Home Medications Medication Instructions Recorded Confirmed dexlansoprazole 60 mg PO HS 01/01/19 03/07/21 lamotrigine 150 mg PO QAM 01/01/19 03/07/21 nebivolol 5 mg PO QAM 01/01/19 03/07/21 nitroglycerin [Nitrostat] 0.4 mg SUBLINGUAL UD PRN 01/01/19 03/07/21 quetiapine 150 mg PO HS 01/01/19 03/07/21 roflumilast 500 mcg PO QAM 01/01/19 03/07/21 ferrous gluconate 236 mg PO QAM 05/14/19 03/07/21 Oxygen Home #1 ea 07/21/20 01/11/21 cholecalciferol (vitamin D3) 25 25 mcg PO DAILY 01/11/21 03/07/21 mcg (1,000 unit) capsule cyanocobalamin (vitamin B-12) 5,000 mcg PO DAILY 01/11/21 03/07/21 5,000 mcg capsule ipratropium 20 mcg-albuterol 100 2 puff INHALATION Q6H PRN g 01/11/21 03/07/21 mcg/actuation mist for inhalation levothyroxine 100 mcg tablet 100 mcg PO DAILYBB 01/11/21 03/07/21 liothyronine 5 mcg tablet 5 mcg PO DAILY 01/11/21 03/07/21 rosuvastatin 10 mg tablet 10 mg PO HS 01/11/21 03/07/21 Previous Rx's Medication Instructions Recorded aspirin 81 mg tablet,delayed 81 mg PO DAILY #90 tab 07/08/20 release Results & Data (ED) Vital Signs Vital Signs - 24 hr 03/07/21 16:17 03/07/21 17:27 03/07/21 17:28 Temperature Temperature Source Pulse Rate 69 Pulse Rate [Apical] 65 Pulse Rate from SpO2 Sensor Respiratory Rate 18 18 Respiratory Effort / Characteristics Non-Labored Spontaneous Respiratory Depth Normal Blood Pressure 193/88 H Blood Pressure [Right Arm] 179/90 H Blood Pressure Mean 123 Blood Pressure Mean [Right Arm] 119 Pulse Oximetry 93 99 99 Oxygen Delivery Method Room Air Room Air Room Air Oxygen Flow Rate Sepsis Recent Fever Within 48 Hours No Sepsis New/Unexplained Change in Mental Status No Sepsis Action Taken by Nursing No Action Required 03/07/21 18:01 03/07/21 18:30 03/07/21 18:55 Temperature Temperature Source Pulse Rate 59 L Pulse Rate [Apical] 60 61 Pulse Rate from SpO2 Sensor 60 Respiratory Rate 18 16 18 Respiratory Effort / Characteristics Non-Labored Respiratory Depth Normal Blood Pressure 216/71 H Blood Pressure [Right Arm] 184/74 H 227/75 H Blood Pressure Mean 119 Blood Pressure Mean [Right Arm] 110 125 Pulse Oximetry 97 100 100 Oxygen Delivery Method Room Air Nasal Cannula Oxygen Flow Rate 2 Sepsis Recent Fever Within 48 Hours Sepsis New/Unexplained Change in Mental Status Sepsis Action Taken by Nursing 03/07/21 18:56 03/07/21 18:58 03/07/21 19:00 Temperature 36.9 C Temperature Source Oral Pulse Rate 63 62 Pulse Rate [Apical] Pulse Rate from SpO2 Sensor 61 60 Respiratory Rate 17 13 Respiratory Effort / Characteristics Respiratory Depth Blood Pressure 227/75 H 208/106 H Blood Pressure [Right Arm] Blood Pressure Mean 125 140 Blood Pressure Mean [Right Arm] Pulse Oximetry 100 100 Oxygen Delivery Method Oxygen Flow Rate Sepsis Recent Fever Within 48 Hours Sepsis New/Unexplained Change in Mental Status Sepsis Action Taken by Nursing 03/07/21 19:14 03/07/21 19:30 Temperature Temperature Source Pulse Rate 59 L 59 L Pulse Rate [Apical] 59 L Pulse Rate from SpO2 Sensor 59 L 59 L Respiratory Rate 14 14 Respiratory Effort / Characteristics Respiratory Depth Blood Pressure 195/96 H 203/77 H Blood Pressure [Right Arm] 195/96 H Blood Pressure Mean 129 119 Blood Pressure Mean [Right Arm] 129 Pulse Oximetry 99 98 Oxygen Delivery Method Nasal Cannula Oxygen Flow Rate 2 Sepsis Recent Fever Within 48 Hours Sepsis New/Unexplained Change in Mental Status Sepsis Action Taken by Nursing Laboratory Data Result diagrams: 03/07/21 16:51 03/07/21 16:51 Lab Results 03/07/21 03/07/21 03/07/21 Range/Units 16:51 16:51 16:51 WBC 8.69 (4.8-10.8) K/uL RBC 3.62 L (4.2-5.4) M/uL Hgb 10.7 L (12.0-16.0) g/dL Hct 32.5 L (37-47) % MCV 89.8 (80-100) fL MCH 29.6 (25-34) pg MCHC 32.9 (32-36) g/dL RDW Std Deviation 48.1 H (36.4-46.3) fL RDW Coeff of Gino 14.5 (11.5-14.5) % Plt Count 232 (130-400) K/uL MPV 9.3 (7.4-10.4) fL Immature Gran % (Auto) 0.3 % Neut % (Auto) 64.7 % Lymph % (Auto) 23.4 % [place] % (Auto) 10.0 % Eos % (Auto) 1.4 % Baso % (Auto) 0.2 % Neut # (Auto) 5.62 (1.4-6.5) K/uL Lymph # (Auto) 2.03 (1.2-3.4) K/uL [place] # (Auto) 0.87 H (0.11-0.59) K/uL Eos # (Auto) 0.12 (0-0.5) K/uL Baso # (Auto) 0.02 (0-0.2) K/uL Immature Gran # (Auto) 0.03 H (0.00-0.02) K/uL PT 10.3 (9.0-12.0) Seconds INR 1.0 (0.9-1.1) APTT 21.6 (21.0-31.0) Seconds PTT Ratio 0.8 Sodium 142 (136-145) mmol/L Potassium 3.9 (3.5-5.1) mmol/L Chloride 110 H (98-107) mmol/L Carbon Dioxide 27 (21-32) mmol/L Anion Gap 5.0 (3-11) BUN 14 (7-18) mg/dl Creatinine 1.53 H (0.6-1.2) mg/dl Est Cr Clr Drug Dosing 29.6 ml/min Est GFR ( Amer) 37.4 Est GFR (Non-Af Amer) 32.2 BUN/Creatinine Ratio 9.0 L (10-20) Glucose 113 H (70-99) mg/dl Calcium 9.4 (8.5-10.1) mg/dl Total Bilirubin 0.3 (0.2-1) mg/dl AST 16 (15-37) U/L ALT 17 (12-78) U/L Alkaline Phosphatase 104 (45-117) U/L Total Protein 7.2 (6.4-8.2) gm/dl Albumin 3.4 (3.4-5.0) gm/dl Globulin 3.8 (2.5-4.0) gm/dl Albumin/Globulin Ratio 0.9 (0.9-2) COVID-19 Eval Order SARS-CoV-2 (PCR) (Negative) Influenza Type A (PCR) (Neg) Influenza Type B (PCR) (Neg) RSV (RT-PCR) (Neg) Blood Type Antibody Screen 03/07/21 03/07/21 03/07/21 Range/Units 17:36 17:59 17:59 WBC (4.8-10.8) K/uL RBC (4.2-5.4) M/uL Hgb (12.0-16.0) g/dL Hct (37-47) % MCV (80-100) fL MCH (25-34) pg MCHC (32-36) g/dL RDW Std Deviation (36.4-46.3) fL RDW Coeff of Gino (11.5-14.5) % Plt Count (130-400) K/uL MPV (7.4-10.4) fL Immature Gran % (Auto) % Neut % (Auto) % Lymph % (Auto) % [place] % (Auto) % Eos % (Auto) % Baso % (Auto) % Neut # (Auto) (1.4-6.5) K/uL Lymph # (Auto) (1.2-3.4) K/uL [place] # (Auto) (0.11-0.59) K/uL Eos # (Auto) (0-0.5) K/uL Baso # (Auto) (0-0.2) K/uL Immature Gran # (Auto) (0.00-0.02) K/uL PT (9.0-12.0) Seconds INR (0.9-1.1) APTT (21.0-31.0) Seconds PTT Ratio Sodium (136-145) mmol/L Potassium (3.5-5.1) mmol/L Chloride (98-107) mmol/L Carbon Dioxide (21-32) mmol/L Anion Gap (3-11) BUN (7-18) mg/dl Creatinine (0.6-1.2) mg/dl Est Cr Clr Drug Dosing ml/min Est GFR ( Amer) Est GFR (Non-Af Amer) BUN/Creatinine Ratio (10-20) Glucose (70-99) mg/dl Calcium (8.5-10.1) mg/dl Total Bilirubin (0.2-1) mg/dl AST (15-37) U/L ALT (12-78) U/L Alkaline Phosphatase (45-117) U/L Total Protein (6.4-8.2) gm/dl Albumin (3.4-5.0) gm/dl Globulin (2.5-4.0) gm/dl Albumin/Globulin Ratio (0.9-2) COVID-19 Eval Order CovFluRsv at [facility] SARS-CoV-2 (PCR) NEGATIVE (Negative) Influenza Type A (PCR) Negative (Neg) Influenza Type B (PCR) Negative (Neg) RSV (RT-PCR) Negative (Neg) Blood Type B Positive Antibody Screen NEGATIVE Administered Medications Hydromorphone HCl (Hydromorphone Inj 0.5 Mg/0.5 Ml Syr) 0.5 mg IV Q2H PRN PRN Reason: Pain Stop: 03/21/21 18:45 Last Admin: 03/07/21 21:08 Dose: 0.5 mg Documented by: [id number] Admin: 03/07/21 18:53 Dose: 0.5 mg Documented by: [id number] Lactated Ringer's (Lr) 1,000 mls @ 80 mls/hr IV .[id number] JANINE Stop: 04/06/21 20:54 Last Admin: 03/07/21 21:08 Dose: 80 mls/hr Documented by: [id number] Oxycodone HCl (Oxycodone Hcl Ir 5 Mg Tab (Immediate Release)) 5 mg PO Q4H PRN PRN Reason: MODERATE Pain (4,5,6) & Pre PT Stop: 03/21/21 20:54 Last Admin: 03/07/21 22:11 Dose: 5 mg Documented by: [id number] Pantoprazole Sodium (Pantoprazole 40 Mg Tab) 40 mg PO [facility] Stop: 04/06/21 20:59 Last Admin: 03/07/21 21:48 Dose: 40 mg Documented by: [id number] Rosuvastatin Calcium (Rosuvastatin Calcium 10 Mg Tab) 10 mg PO [facility] Stop: 04/06/21 20:59 Last Admin: 03/07/21 21:48 Dose: 10 mg Documented by: [id number] Senna/Docusate Sodium (Docusate Sodium/Senna 50/8.6mg Tab) 2 tab PO [facility] Stop: 04/06/21 20:59 Last Admin: 03/07/21 21:48 Dose: 2 tab Documented by: [id number] Discontinued Medications Fentanyl Citrate (Fentanyl Citrate 100 Mcg/2 Ml Vial) 100 mcg IV NOW STA Stop: 03/07/21 16:25 Last Admin: 03/07/21 16:39 Dose: 100 mcg Documented by: [id number] Fentanyl Citrate (Fentanyl Citrate 100 Mcg/2 Ml Vial) 100 mcg IV NOW STA Stop: 03/07/21 17:26 Last Admin: 03/07/21 17:32 Dose: 100 mcg Documented by: [id number] Acetaminophen (Ofirmev) 1,000 mg in 100 mls @ 400 mls/hr IV NOW STA Stop: 03/07/21 17:59 Last Infusion: 03/07/21 18:15 Dose: 0 mls/hr Documented by: [id number] Admin: 03/07/21 17:57 Dose: 400 mls/hr Documented by: [id number] Ondansetron HCl (Ondansetron Inj 2 Mg/Ml 2 Ml Vial) 4 mg IV NOW STA Stop: 03/07/21 16:25 Last Admin: 03/07/21 16:41 Dose: 4 mg Documented by: [id number] Oxycodone HCl (Oxycodone Hcl Ir 5 Mg Tab (Immediate Release)) Confirm Administered Dose 5 mg .ROUTE .STK-MED ONE Stop: 03/07/21 20:25 Last Admin: 03/07/21 20:26 Dose: 5 mg Documented by: [id number] Imaging Data Radiologist's Impression: Chest X-Ray 03/07/21 16:24 XR chest 1V portable HISTORY: fall COMPARISON: 02/06/2018. FINDINGS: Cardiac silhouette remains mildly enlarged. There is a mildly tortuous thoracic aorta, unchanged. No new focal lung consolidations to suggest pneumonia. No evidence for pulmonary edema. No pleural effusions. No pneumothorax. Retrocardiac density favors a small hiatus hernia. IMPRESSION: No acute process. ACT 112: Negative or not required by law. Electronically signed by: Kavon Yi M.D. 03/07/2021 5:55 PM Femur X-Ray 03/07/21 16:24 XR femur LT 2V routine, XR pelvis 1-2V routine CLINICAL HISTORY: fall. Left hip pain. COMPARISON STUDY: None. FINDINGS: No fracture or dislocation within the pelvis, right hip, or distal left femur. There is a mildly displaced intertrochanteric fracture within the proximal left femur. This demonstrates up to 1.3 cm of medial displacement. No dislocation. The bones are osteopenic. IMPRESSION: Mildly displaced intertrochanteric fracture within the proximal left femur. ACT 112: Negative or not required by law. Electronically signed by: Kavon Yi M.D. 03/07/2021 5:56 PM Pelvis X-Ray 03/07/21 16:24 XR femur LT 2V routine, XR pelvis 1-2V routine CLINICAL HISTORY: fall. Left hip pain. COMPARISON STUDY: None. FINDINGS: No fracture or dislocation within the pelvis, right hip, or distal left femur. There is a mildly displaced intertrochanteric fracture within the proximal left femur. This demonstrates up to 1.3 cm of medial displacement. No dislocation. The bones are osteopenic. IMPRESSION: Mildly displaced intertrochanteric fracture within the proximal left femur. ACT 112: Negative or not required by law. Electronically signed by: Kavon Yi M.D. 03/07/2021 5:56 PM Discharge Plan Visit Data Chief Complaint: Fall Stated Complaint: Fall ED Provider: Farhan Boss Discharge Problem: Fall, Closed fracture of left hip Patient Disposition: Admitted As Inpatient Discharge Instructions Interventions: ED Discharge Assessment Last Done: 03/07/21 20:40 Discharge Problem: Fall Qualifiers: Encounter type: initial encounter Qualified Code(s): W19.XXXA - Unspecified fall, initial encounter Closed fracture of left hip Qualifiers: Encounter type: initial encounter Qualified Code(s): S72.002A - Fracture of unspecified part of neck of left femur, initial encounter for closed fracture
[2021-03-07 17:03] LABS: Basophils # (auto) 0.02 K/uL (0-0.2); Basophils % (auto) 0.2 %; Eosinophils # (auto) 0.12 K/uL (0-0.5); Eosinophils % (auto) 1.4 %; Hematocrit (blood only) 32.5 % (37-47); Hemoglobin 10.7 g/dL (12.0-16.0); Immature Granulocytes # (auto) 0.03 K/uL (0.00-0.02); Immature Granulocytes % (auto) 0.3 %; Lymphocytes # (auto) 2.03 K/uL (1.2-3.4); Lymphocytes % (auto) 23.4 %; Mean Corpuscular Hemoglobin 29.6 pg (25-34); Mean Corpuscular Hgb Conc 32.9 g/dL (32-36); Mean Corpuscular Volume 89.8 fL (80-100); Mean Platelet Volume 9.3 fL (7.4-10.4); Monocytes # (auto) 0.87 K/uL (0.11-0.59); Neutrophils # (auto) 5.62 K/uL (1.4-6.5); Neutrophils % (auto) 64.7 %; Platelet Count 232 K/uL (130-400); RDW Coefficient of Variation 14.5 % (11.5-14.5); RDW Standard Deviation 48.1 fL (36.4-46.3); Red Blood Count 3.62 M/uL (4.2-5.4); White Blood Count 8.69 K/uL (4.8-10.8)
[2021-03-07 17:13] LABS: Partial Thromboplastin Ratio 0.8; Partial Thromboplastin Time 21.6 Seconds (21.0-31.0); Prothrombin Time 10.3 Seconds (9.0-12.0)
[2021-03-07 17:35] LABS: Albumin Level 3.4 gm/dl (3.4-5.0); Calcium 9.4 mg/dl (8.5-10.1); Creatinine Clr Calc Pharmacy 29.6 ml/min; Est GFR (African American) 37.4; Est GFR (Non-African American) 32.2; Potassium 3.9 mmol/L (3.5-5.1)
[2021-03-07 17:38] LABS: Albumin Globulin Ratio 0.9 (0.9-2); Bilirubin,Total 0.3 mg/dl (0.2-1); Globulin 3.8 gm/dl (2.5-4.0); Total Protein 7.2 gm/dl (6.4-8.2)
[2021-03-07] MEDS ORDERED: ACETAMINOPHEN 1,000 MG/100 ML VIAL IV STA (17:45)
--- NOTE | 2021-03-07 17:57 | XRay Report ---
XR chest 1V portable HISTORY: fall COMPARISON: 02/06/2018. FINDINGS: Cardiac silhouette remains mildly enlarged. There is a mildly tortuous thoracic aorta, unch anged. No new focal lung consolidations to suggest pneumonia. No evidence for pulmonary edema. No ple ural effusions. No pneumothorax. Retrocardiac density favors a small hiatus hernia. IMPRESSION: No acute process. ACT 112: Negative or not required by law. Electronically signed by: Kavon Yi M.D. 03/07/2021 5:55 PM
--- NOTE | 2021-03-07 17:58 | XRay Report ---
XR femur LT 2V routine, XR pelvis 1-2V routine CLINICAL HISTORY: fall. Left hip pain. COMPARISON STUDY: None. FINDINGS: No fracture or dislocation within the pelvis, right hip, or distal left femur. There is a m ildly displaced intertrochanteric fracture within the proximal left femur. This demonstrates up to 1. 3 cm of medial displacement. No dislocation. The bones are osteopenic. IMPRESSION: Mildly displaced intertrochanteric fracture within the proximal left femur. ACT 112: Negative or not required by law. Electronically signed by: Kavon Yi M.D. 03/07/2021 5:56 PM
[2021-03-07] MEDS: HYDROmorphone INJ 0.5 MG/0.5 ML SYR IV PRN ×3 (18:53→23:03)
[2021-03-07 18:59] LABS: Influenza A virus by PCR Negative (Neg); Influenza B virus by PCR Negative (Neg); RSV by PCR Negative (Neg); SARS CoV2 RNA(COVID-19) InHosp NEGATIVE (Negative)
--- NOTE | 2021-03-07 19:46 | History & Physical Report ---
Date of Service March 07, 2021 Assessment & Plan (1) Fracture, intertrochanteric, left femur: Acute fracture- Orthopedics consulted- Dr. Robledo - Likely OR in the morning - NPO after midnight - Pain control- Tylenol 650 mg q4 PRN, Oxycodone 5 mg Po q4h PRN, Hydromporphone 0.5mg IV q2 PRN - EtCO2 monitoring for sedation - Consider lidocaine patch if needed - Type and cross performed in EMD (2) CAD (coronary artery disease): Multivessel CAD; RCA, LCX, LAD, Left main and ramus - cardiac caths 2001, 2006,- collateral flow- medical management - Patient does not take aspirin daily- Last dose ~ 3 days ago, she forgets. - Re-educated on importance of this for primary prevention - restart when cleared post op - Continue nebivolol 5mg PO QAM - Continue Rosuvastatin 10mg QHS- lipids ordered for morning - nitroglycerine 0.4mg SL PRN chest pain - Intolerance to MARISA and ARB- cough/hives respectively (3) Hypertension: Baseline appears well controlled - elevated now secondary to pain- better pain control (4) Hyperlipidemia: As above, patient als with carotid plaques bilaterally but without significant stenosis - continue lipid management and BP control (5) Hypothyroid: Review is interesting following her thyroid - Followed by neurology for tremors, diplopia, and dysphagia- with proximal muscle weakness and gait instability - This resolved when stopping her thyroid medication- Dose recalibrated, but unsure who is following - Patient is on T4 and T3 therapy- TSH in the morning with reflex - Results for review noted last in 2019 (6) Proximal muscle weakness: In place for history- in conjunction with thyroid - No acute needs - See Dr. Boss neurology note from 07/21/2020- for full review if this becomes issue on admission (7) COPD (chronic obstructive pulmonary disease): Borderline with PFT's - Patient does not take her inhalers daily because they make her jittery, she takes them as she feels she needs them - 2lNC while sleeping at night - No immediate needs or concerns - Continue Roflumilast, Albuterol/ipratropium. (8) Rotator cuff tear: Follows with orthopaedics, receives steroid injections ~ 3 months, if she needs them - conservitive treatment - continue AROM while in house - PT/OT consult for hip as well (9) Iron (Fe) deficiency anemia: Iron levels in the morning- continue supplementation (10) B12 deficiency: B12 level in morning continue supplementtation (11) Bipolar 1 disorder: Continue lamotrigine - Hold Seroquel tonight for sedating effects - restart when stable History of Present Illness Chief Complaint: fell and broke hip Primary Care Provider: Abiel Clark MD 80 YOF with past medical history of CAD, HTN, HLD, Breast CA (radiation treatment only), lumpectomy, Anemia, CKD III, COPD, myopathy/tremors and right rotator cuff injury that she sustained from a fall about a year ago, bipolar. Patient was out shopping today and was returning to her car, where she was stepping off a high curb to get into her car, her foot slipped off the curb and she fell directly on her hip. Two persons were able to immediately come to her assistance and call for EMS. She denies any other trauma or injury. She was brought to [facility]. She was noted to have a left intratrochanteric proximal femur fracture with medial displacement. She was given Fentanyl and Tylenol for pain control and the hospitalist team was notified for admission. Patient is pleasantly awake, she describes her pain as sharp stabbing pain that goes from left hip to knee. This is obviously aggravated with movement, it is associated with some numbness that ends ~3 inches above the knee. She has full sensation and movement distally. There is no internal or external rotation of the leg. Patient will be admitted, pain control, NPO after midnight, and Orthopaedics consult will be placed. Allergies Allergy/AdvReac Type Severity Reaction Status Date / Time metoclopramide Allergy Intermediate ESSENTIAL Verified 03/07/21 17:12 TREMORS clopidogrel Allergy Mild HIVES Verified 03/07/21 17:12 diazepam Allergy Mild DEPRESSION Verified 03/07/21 17:12 diltiazem Allergy Mild Light Verified 03/07/21 17:12 headed erythromycin base Allergy Mild EES, TAKES Verified 03/07/21 17:12 Z-PACKS W/O RXN gabapentin Allergy Mild States Verified 03/07/21 17:12 hands catch fire latex Allergy Mild rips skin Verified 03/07/21 17:12 off lisinopril Allergy Mild COUGH Verified 03/07/21 17:12 losartan Allergy Mild HIVES Verified 03/07/21 17:12 micafungin Allergy Mild rash Verified 03/07/21 17:12 oxycodone Allergy Mild INC. Verified 03/07/21 17:12 DEPRESSION Penicillins Allergy Mild Diarrhea Verified 03/07/21 17:12 promethazine Allergy Mild TROUBLE Verified 03/07/21 17:12 FOCUSING SPEAKING AT HIGHER DOSES Sulfa (Sulfonamide Allergy Mild SKIN Verified 03/07/21 17:12 Antibiotics) BECOMES PHOTOSENSITIVE AND BECOMES RED bupropion Allergy Unknown unknown Verified 03/07/21 17:12 dicyclomine Allergy Unknown Unknown Verified 03/07/21 17:12 potassium chloride Allergy Unknown Unknown Verified 03/07/21 17:12 sucralfate Allergy Unknown Unknown Verified 03/07/21 17:12 [id number] Reductase AdvReac Intermediate Diarrhea Verified 03/07/21 21:01 Inhibitor amoxicillin AdvReac Mild DIARRHEA Verified 03/07/21 17:12 clavulanic acid AdvReac Mild DIARRHEA Verified 03/07/21 17:12 hydrocodone AdvReac Mild "dont like Verified 03/07/21 17:12 how it makes me feel" Home Medications Medication Instructions Recorded Confirmed Type dexlansoprazole 60 mg PO HS 01/01/19 03/07/21 History lamotrigine 150 mg PO QAM 01/01/19 03/07/21 History nitroglycerin [Nitrostat] 0.4 mg SUBLINGUAL UD PRN 01/01/19 03/07/21 History quetiapine 150 mg PO HS 01/01/19 03/07/21 History roflumilast 500 mcg PO QAM 01/01/19 03/07/21 History Oxygen Home #1 ea 07/21/20 01/11/21 History cholecalciferol (vitamin D3) 25 25 mcg PO DAILY 01/11/21 03/07/21 History mcg (1,000 unit) capsule cyanocobalamin (vitamin B-12) 5,000 mcg PO DAILY 01/11/21 03/07/21 History 5,000 mcg capsule ipratropium 20 mcg-albuterol 100 2 puff INHALATION Q6H PRN g 01/11/21 03/07/21 History mcg/actuation mist for inhalation rosuvastatin 10 mg tablet 10 mg PO HS 01/11/21 03/07/21 History acetaminophen 1,000 mg PO Q8 #180 tab 03/11/21 Rx aspirin 81 mg PO BID 39 Days #78 tab 03/11/21 Rx bisacodyl 10 mg MT DAILY PRN #3 ea 03/11/21 Rx ferrous gluconate 324 mg PO BIDM #60 tab 03/11/21 Rx nebivolol [Bystolic] 10 mg PO DAILY #30 tab 03/11/21 Rx ondansetron HCl [Zofran] 4 mg PO Q8H PRN #6 tab 03/11/21 Rx oxycodone 5 - 10 mg PO Q6 PRN #10 tab 03/11/21 Rx polyethylene glycol 3350 [Miralax] 17 g PO DAILY #119 g 03/11/21 Rx pregabalin 75 mg PO HS #30 cap 03/11/21 Rx sennosides-docusate sodium 2 tab PO HS #60 tab 03/11/21 Rx [Senokot-S] Past Med/Surg History Medical History (Updated 03/12/21 @ 00:07 by Lilli Bowman) Anemia REASON FOR COLONOSCOPY 07/2019 Bipolar 1 disorder Breast cancer (08/23/14) "Abnormal bilateral mammogram Status post core needle biopsy 08/23/2014 revealing intraductal papilloma on the left Right breast showed invasive ductal carcinoma Status post right lumpectomy and sentinel lymph node biopsy 10/08/2014 Stage [id number] Status post completion of radiation therapy 12/24/2014 utilizing hypo- fractionation received 5000 cGy" Breast cancer, right 2014--stage 1--lumpectomy and radiation CAD (coronary artery disease) Change in vision Chronic obstructive pulmonary disease inhaler daily Degenerative joint disease Depression Fall GERD (gastroesophageal reflux disease) History of colon polyps Hyperlipidemia Hypertension Hypothyroidism Medical marijuana use Myocardial Infarction "silent" in 90s--follows with Dr. Gibbs On home oxygen therapy 2L N/C at hs Pancreatitis hx of Papilloma of breast left Sleep apnea Temporal arteritis Unstable angina Unstable angina Surgical History History of bilateral cataract extraction History of bilateral tubal ligation History of breast surgery removal of papilloma of left breast History of cardiac cath x3--last ---no stents History of cholecystectomy History of colonoscopy History of esophagogastroduodenoscopy (EGD) History of lumpectomy of right breast History of right breast biopsy malignant History of tooth extraction all teeth removed History of total hysterectomy with bilateral salpingo-oophorectomy (BSO) Family History Grandfather (Paternal) Family history of diabetes mellitus Other No family history of adverse response to anesthesia Social History Smoking Status: Never smoker Cigarettes Per Day: 20 a day; Second Hand Exposure: Yes (parents smoked); Hx Alcohol Use: Yes Alcohol type: wine Hx Substance Use: No Preferred Language: Indonesian Communication Ability: Effective 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 Beliefs That Will Affect Care: None Current Living Situation: Spouse Feels Safe at Home: Yes Assistive Devices: Walker Review of Systems Review of Systems: REVIEW OF SYSTEMS: Constitutional: No fever, sweats or chills Eyes: (+) wear glasses No diplopia, no worsening or blurred vision ENT: (+) upper and lower dentures, normal hearing, no trouble swallowing Respiratory: (+) 2lNC at nigh time for sleepNo cough, sputum, dyspnea at rest or on exertion Cardiovascular: No chest pain, tightness or palpitations Abdomen: No pain, nausea, vomiting, diarrhea or constipation Musculoskeletal: (+) right rotator cuff pain, left hip pain, no calf pain, swelling Neurologic: No weakness, numbness/tingling, or balance problems Psychiatric: No anxiety or depression Skin: No rash or itch Physical Exam Physical Exam: PHYSICAL EXAM: General: awake, alert, no apparent distress, pain 5-6/10 Head: Normocephalic, atraumatic ENT: PERRL, EOMI, no pharyngeal exudate, mucous membranes moist Neuro: AAO x 3, speech clear and appropriate, strength intact bilaterally 5/5, sensation intact and equal all extremities and dermatomes, no pronator drift Chest: equal rise and fall of the chest, no accessory muscle use, no heaves or thrills, Clear to auscultation, on room air, Cardiac: Regular rate and rhythm, telemetry reviewed occasional PAC, skin warm dry, cap refill <3 seconds, peripheral pulses +2 no JVD, no murmur, no edema GI: NABS x 4 quadrants, soft, nontender to palpation, no rebound, guarding or tenderness : Spontaneously voiding, no pain, no CVA tenderness, Extremities: Left hip pain with local numbness, full sensation to left leg and distal movement, pulses strong, Normal inspection, no peripheral edema or erythema, calfs nontender to palpation, 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 Psych: Normal mood and affect Skin: no rash or open areas Patient exhibits no other tenderness or bruising to her left side at this time. Results & Data Results & Data ([facility]) Vital Signs (Past 12 Hours) Vital Signs Temp Pulse Pulse Resp BP BP Pulse Ox 03/07/21 18:58 36.9 C 03/07/21 18:55 61 18 227/75 H 100 03/07/21 18:01 60 18 184/74 H 97 03/07/21 17:28 99 03/07/21 17:27 65 18 179/90 H 99 03/07/21 16:17 69 18 193/88 H 93 Laboratory Results Abnormal lab results 03/07/21 03/07/21 Range/Units 16:51 16:51 RBC 3.62 L (4.2-5.4) M/uL Hgb 10.7 L (12.0-16.0) g/dL Hct 32.5 L (37-47) % RDW Std Deviation 48.1 H (36.4-46.3) fL [place] # (Auto) 0.87 H (0.11-0.59) K/uL Immature Gran # (Auto) 0.03 H (0.00-0.02) K/uL Chloride 110 H (98-107) mmol/L Creatinine 1.53 H (0.6-1.2) mg/dl BUN/Creatinine Ratio 9.0 L (10-20) Glucose 113 H (70-99) mg/dl Diagnostic Findings XR femur LT 2V routine, XR pelvis 1-2V routine CLINICAL HISTORY: fall. Left hip pain. COMPARISON STUDY: None. FINDINGS: No fracture or dislocation within the pelvis, right hip, or distal left femur. There is a mildly displaced intertrochanteric fracture within the proximal left femur. This demonstrates up to 1.3 cm of medial displacement. No dislocation. The bones are osteopenic. IMPRESSION: Mildly displaced intertrochanteric fracture within the proximal left femur. ACT 112: Negative or not required by law. XR chest 1V portable HISTORY: fall COMPARISON: 02/06/2018. FINDINGS: Cardiac silhouette remains mildly enlarged. There is a mildly tortuous thoracic aorta, unchanged. No new focal lung consolidations to suggest pneumonia. No evidence for pulmonary edema. No pleural effusions. No pneumothorax. Retrocardiac density favors a small hiatus hernia. IMPRESSION: No acute process. Medications Administered Hydromorphone HCl (Hydromorphone Inj 0.5 Mg/0.5 Ml Syr) 0.5 mg IV Q2H PRN PRN Reason: Pain Stop: 03/21/21 18:45 Last Admin: 03/07/21 18:53 Dose: 0.5 mg Documented by: [id number] Discontinued Medications Fentanyl Citrate (Fentanyl Citrate 100 Mcg/2 Ml Vial) 100 mcg IV NOW STA Stop: 03/07/21 16:25 Last Admin: 03/07/21 16:39 Dose: 100 mcg Documented by: [id number] Fentanyl Citrate (Fentanyl Citrate 100 Mcg/2 Ml Vial) 100 mcg IV NOW STA Stop: 03/07/21 17:26 Last Admin: 03/07/21 17:32 Dose: 100 mcg Documented by: [id number] Acetaminophen (Ofirmev) 1,000 mg in 100 mls @ 400 mls/hr IV NOW STA Stop: 03/07/21 17:59 Last Infusion: 03/07/21 18:15 Dose: 0 mls/hr Documented by: [id number] Admin: 03/07/21 17:57 Dose: 400 mls/hr Documented by: [id number] Ondansetron HCl (Ondansetron Inj 2 Mg/Ml 2 Ml Vial) 4 mg IV NOW STA Stop: 03/07/21 16:25 Last Admin: 03/07/21 16:41 Dose: 4 mg Documented by: [id number] Home Medications dexlansoprazole 60 mg PO HS 01/01/19 [History Confirmed 03/07/21] lamotrigine 150 mg PO QAM 01/01/19 [History Confirmed 03/07/21] nebivolol 5 mg PO QAM 01/01/19 [History Confirmed 03/07/21] nitroglycerin [Nitrostat] 0.4 mg SUBLINGUAL UD PRN 01/01/19 [History Confirmed 03/07/21] quetiapine 150 mg PO HS 01/01/19 [History Confirmed 03/07/21] roflumilast 500 mcg PO QAM 01/01/19 [History Confirmed 03/07/21] ferrous gluconate 236 mg PO QAM 05/14/19 [History Confirmed 03/07/21] aspirin 81 mg tablet,delayed release 81 mg PO DAILY #90 tab 07/08/20 [Rx Confirmed 03/07/21] Oxygen Home #1 ea 07/21/20 [History Confirmed 01/11/21] cholecalciferol (vitamin D3) 25 mcg (1,000 unit) capsule 25 mcg PO DAILY 01/11/21 [History Confirmed 03/07/21] cyanocobalamin (vitamin B-12) 5,000 mcg capsule 5,000 mcg PO DAILY 01/11/21 [History Confirmed 03/07/21] ipratropium 20 mcg-albuterol 100 mcg/actuation mist for inhalation 2 puff INHALATION Q6H PRN g 01/11/21 [History Confirmed 03/07/21] levothyroxine 100 mcg tablet 100 mcg PO DAILYBB 01/11/21 [History Confirmed 03/07/21] liothyronine 5 mcg tablet 5 mcg PO DAILY 01/11/21 [History Confirmed 03/07/21] rosuvastatin 10 mg tablet 10 mg PO HS 01/11/21 [History Confirmed 03/07/21] Active Medications Hydromorphone HCl (Hydromorphone Inj 0.5 Mg/0.5 Ml Syr) 0.5 mg IV Q2H PRN PRN Reason: Pain Stop: 03/21/21 18:45 Last Admin: 03/07/21 18:53 Dose: 0.5 mg Documented by: [id number] Additional Comments: Sinus Tj 59 BPM, normal ECG Code Status & VTE Plan Code Status CODE: FULL VTE: SCD's, chemoprophylaxis post-operative VTE Prophylaxis Plan VTE Prophylaxis will be ordered: Yes Supervising Physician Co-Signing Physician Notes During my face to face encounter, I obtained a history and physical examination. I reviewed above note and agree with it. I discussed plan of care with patient and BARRINGTON Dutta. I answered all of the patient's questions. Patient will be admitted for left intertrochanteric fracture. Will consult ortho. PG Care Time/CCT Total # of Minutes Spent Total Time Spent with Patient: Total time spent is greater than 50% in coordination of care (as documented) at patient's floor/unit and/or counseling patient: Coding Level of Care Code 82954 Initial Inpt Care Lvl 3 Diagnoses Fracture, intertrochanteric, left femur S72.145A Encounter type: initial encounter Fracture alignment: nondisplaced Fracture type: closed CAD (coronary artery disease) I25.10 Associated angina: without angina Coronary Disease-Associated Artery/Lesion type: [place] artery [place] vs. transplanted heart: [place] heart Hypertension I10 Hypertension type: essential hypertension Hyperlipidemia E78.5 Hyperlipidemia type: unspecified Hypothyroid E03.9 Hypothyroidism type: unspecified Proximal muscle weakness M62.81 COPD (chronic obstructive pulmonary disease) J44.9 COPD type: unspecified COPD Rotator cuff tear M75.100 Laterality: right Rotator cuff tear extent: unspecified tear extent Rotator cuff tear trauma status: traumatic Iron (Fe) deficiency anemia D50.9 Iron deficiency anemia type: unspecified iron deficiency B12 deficiency E53.8 Bipolar 1 disorder F31.9 (1) CAD (coronary artery disease) Associated angina: without angina Coronary Disease-Associated Artery/Lesion type: [place] artery [place] vs. transplanted heart: [place] heart Qualified Code(s): I25.10 - Atherosclerotic heart disease of [place] coronary artery without angina pectoris (2) Hyperlipidemia Hyperlipidemia type: unspecified Qualified Code(s): E78.5 - Hyperlipidemia, unspecified (3) Hypothyroid Hypothyroidism type: unspecified Qualified Code(s): E03.9 - Hypothyroidism, unspecified (4) Iron (Fe) deficiency anemia Iron deficiency anemia type: unspecified iron deficiency Qualified Code(s): D50.9 - Iron deficiency anemia, unspecified (5) COPD (chronic obstructive pulmonary disease) COPD type: unspecified COPD Qualified Code(s): J44.9 - Chronic obstructive pulmonary disease, unspecified (6) Hypertension Hypertension type: essential hypertension Qualified Code(s): I10 - Essential (primary) hypertension (7) Rotator cuff tear Laterality: right Rotator cuff tear extent: unspecified tear extent Rotator cuff tear trauma status: traumatic (8) Fracture, intertrochanteric, left femur Encounter type: initial encounter Fracture alignment: nondisplaced Fracture type: closed Qualified Code(s): S72.145A - Nondisplaced intertrochanteric fracture of left femur, initial encounter for closed fracture
[2021-03-07] MEDS ORDERED: oxyCODONE HCL IR 5 MG TAB (IMMEDIATE RELEASE) ONE (20:24)
[2021-03-07] MEDS ORDERED: NITROGLYCERIN SL 0.4 MG/TAB TAB SL PRN (20:55)
[2021-03-07] MEDS ORDERED: NALOXONE HCL 0.4 MG/1 ML VIAL/CARP IV PRN (20:55)
[2021-03-07] MEDS ORDERED: IPRATROPIUM BROMIDE/ALBUTEROL respimat INH INH PRN (20:55)
[2021-03-07] MEDS ORDERED: bisacodyL 10 MG SUPP PR PRN (20:55)
[2021-03-07] MEDS ORDERED: MAGNESIUM HYDROXIDE SUSP 30 ML UDC PO PRN (20:55)
[2021-03-07] MEDS: LACTATED RINGER'S 1,000 ML IV SCH (21:08)
[2021-03-07] MEDS ORDERED: Ipratropium HFA Inhaler (Combivent Respimat P&T Subs) INH PRN (21:24)
[2021-03-07] MEDS ORDERED: Albuterol HFA 8 GM Inhaler (Combivent Respimat P&T Subs) INH PRN (21:24)
[2021-03-07] MEDS: DOCUSATE SODIUM/SENNA 50/8.6MG TAB PO SCH (21:48)
[2021-03-07] MEDS: PANTOprazole 40 MG TAB PO SCH (21:48)
[2021-03-07] MEDS: ROSUVASTATIN CALCIUM 10 MG TAB PO SCH (21:48)
[2021-03-07] MEDS: oxyCODONE HCL IR 5 MG TAB (IMMEDIATE RELEASE) PO PRN (22:11)
[2021-03-07 22:47] LABS: Appearance Urine Cloudy (Clear); Blood Urine Negative (Negative); Color Urine Dark Yellow; Epithelial Cell Urine Auto >30 /lpf (0-5); Glucose Urine UA Negative (Negative); Ketones Urine Trace (Negative); Leukocyte Esterase Urine Negative (Negative); Nitrite Urine Negative (Negative); Protein Urine Trace (Negative); RBC Urine Automated 0-4 /hpf (0-4); Specific Gravity Urine 1.032 (1.000-1.030); Urobilinogen Urine Negative (Negative)
[2021-03-07 22:54] LABS: Bilirubin Urine 1+ (Negative)
[2021-03-07 23:02] LABS: Bacteria Urine Automated 1+ (Negative); Mucus Urine Present (None Prsent)
[2021-03-08] MEDS ORDERED: MELATONIN 3 MG TAB PO PRN (01:16)
[2021-03-08] MEDS: HYDROmorphone INJ 0.5 MG/0.5 ML SYR IV PRN ×6 (01:22→19:18)
[2021-03-08] MEDS ORDERED: ceFAZolin 2000MG 2,000 MG/15 ML SYR IV SCH (06:00)
[2021-03-08] MEDS ORDERED: LEVOTHYROXINE SODIUM 100 MCG TABLET PO SCH (06:30)
[2021-03-08 06:59] LABS: Basophils # (auto) 0.03 K/uL (0-0.2); Basophils % (auto) 0.4 %; Eosinophils # (auto) 0.06 K/uL (0-0.5); Eosinophils % (auto) 0.9 %; Hematocrit (blood only) 31.1 % (37-47); Immature Granulocytes # (auto) 0.01 K/uL (0.00-0.02); Immature Granulocytes % (auto) 0.1 %; Lymphocytes # (auto) 1.21 K/uL (1.2-3.4); Lymphocytes % (auto) 18.1 %; Mean Corpuscular Hemoglobin 29.2 pg (25-34); Mean Corpuscular Hgb Conc 32.2 g/dL (32-36); Mean Corpuscular Volume 90.7 fL (80-100); Mean Platelet Volume 9.4 fL (7.4-10.4); Monocytes # (auto) 0.83 K/uL (0.11-0.59); Monocytes % (auto) 12.4 %; Neutrophils # (auto) 4.54 K/uL (1.4-6.5); Neutrophils % (auto) 68.1 %; Platelet Count 222 K/uL (130-400); RDW Coefficient of Variation 14.5 % (11.5-14.5); Red Blood Count 3.43 M/uL (4.2-5.4); White Blood Count 6.68 K/uL (4.8-10.8)
[2021-03-08 07:12] LABS: Estimated Average Glucose 105 mg/dl; Hemoglobin A1C 5.3 % (4.5-5.6)
--- NOTE | 2021-03-08 07:16 | Orthopedic Consultation ---
Date of Service March 08, 2021 Assessment & Plan (1) Closed fracture of left hip: She has been admitted by the hospitalist service. She is npo. I educated her on this type of fracture and treatment for it. We do recommend surgical fixation, specifically intramedullary nailing of the left hip/femur. Procedure was explained including risks, alternatives, and benefits to fixation. She does want to proceed with surgery as discussed. Surgery will be this afternoon with Dr. Lopez. She does live at home with her and I did [facility] History of Present Illness Reason for Consultation: .left hip fracture Requesting Physician: . Attending Physician: Aly Rodrigues .80 y/o female who was shopping at [employer] yesterday, getting back into her car, stepped on the curb and her foot slipped off causing her to fall. She landed on the left hip area. She had immediate hip pain. Denies any other injuries. Xrays obtained in the ER showed an intertrochanteric fracture and she was admitted to the hospitalist service. She denies any pain in the left hip prior to this fall. She normally ambulates independently, but she has a history of myasthenia gravis and occasionally uses a cane/walker temporarily. Allergies Allergy/AdvReac Type Severity Reaction Status Date / Time metoclopramide Allergy Intermediate ESSENTIAL Verified 03/07/21 17:12 TREMORS clopidogrel Allergy Mild HIVES Verified 03/07/21 17:12 diazepam Allergy Mild DEPRESSION Verified 03/07/21 17:12 diltiazem Allergy Mild Light Verified 03/07/21 17:12 headed erythromycin base Allergy Mild EES, TAKES Verified 03/07/21 17:12 Z-PACKS W/O RXN gabapentin Allergy Mild States Verified 03/07/21 17:12 hands catch fire latex Allergy Mild rips skin Verified 03/07/21 17:12 off lisinopril Allergy Mild COUGH Verified 03/07/21 17:12 losartan Allergy Mild HIVES Verified 03/07/21 17:12 micafungin Allergy Mild rash Verified 03/07/21 17:12 oxycodone Allergy Mild INC. Verified 03/07/21 17:12 DEPRESSION Penicillins Allergy Mild Diarrhea Verified 03/07/21 17:12 promethazine Allergy Mild TROUBLE Verified 03/07/21 17:12 FOCUSING SPEAKING AT HIGHER DOSES Sulfa (Sulfonamide Allergy Mild SKIN Verified 03/07/21 17:12 Antibiotics) BECOMES PHOTOSENSITIVE AND BECOMES RED bupropion Allergy Unknown unknown Verified 03/07/21 17:12 dicyclomine Allergy Unknown Unknown Verified 03/07/21 17:12 potassium chloride Allergy Unknown Unknown Verified 03/07/21 17:12 sucralfate Allergy Unknown Unknown Verified 03/07/21 17:12 [id number]-Pmd-Ylf Reductase AdvReac Intermediate Diarrhea Verified 03/07/21 21:01 Inhibitor amoxicillin AdvReac Mild DIARRHEA Verified 03/07/21 17:12 clavulanic acid AdvReac Mild DIARRHEA Verified 03/07/21 17:12 hydrocodone AdvReac Mild "dont like Verified 03/07/21 17:12 how it makes me feel" Home Medications Medication Instructions Recorded Confirmed Type dexlansoprazole 60 mg PO HS 01/01/19 03/07/21 History lamotrigine 150 mg PO QAM 01/01/19 03/07/21 History nebivolol 5 mg PO QAM 01/01/19 03/07/21 History nitroglycerin [Nitrostat] 0.4 mg SUBLINGUAL UD PRN 01/01/19 03/07/21 History quetiapine 150 mg PO HS 01/01/19 03/07/21 History roflumilast 500 mcg PO QAM 01/01/19 03/07/21 History ferrous gluconate 236 mg PO QAM 05/14/19 03/07/21 History aspirin 81 mg tablet,delayed 81 mg PO DAILY #90 tab 07/08/20 03/07/21 Rx release Oxygen Home #1 ea 07/21/20 01/11/21 History cholecalciferol (vitamin D3) 25 25 mcg PO DAILY 01/11/21 03/07/21 History mcg (1,000 unit) capsule cyanocobalamin (vitamin B-12) 5,000 mcg PO DAILY 01/11/21 03/07/21 History 5,000 mcg capsule ipratropium 20 mcg-albuterol 100 2 puff INHALATION Q6H PRN g 01/11/21 03/07/21 History mcg/actuation mist for inhalation levothyroxine 100 mcg tablet 100 mcg PO DAILYBB 01/11/21 03/07/21 History liothyronine 5 mcg tablet 5 mcg PO DAILY 01/11/21 03/07/21 History rosuvastatin 10 mg tablet 10 mg PO HS 01/11/21 03/07/21 History Past Med/Surg History Medical History Anemia REASON FOR COLONOSCOPY 07/2019 Bipolar 1 disorder Breast cancer, right 2014--stage 1--lumpectomy and radiation CAD (coronary artery disease) Chronic obstructive pulmonary disease inhaler daily Degenerative joint disease Depression History of colon polyps Hyperlipidemia Hypertension Hypothyroidism Medical marijuana use Myocardial Infarction "silent" in --follows with Dr. Gibbs On home oxygen therapy 2L N/C at hs Pancreatitis hx of Papilloma of breast left Sleep apnea Temporal arteritis Unstable angina Surgical History History of bilateral cataract extraction History of bilateral tubal ligation History of breast surgery removal of papilloma of left breast History of cardiac cath x3--last ---no stents History of cholecystectomy History of colonoscopy History of esophagogastroduodenoscopy (EGD) History of lumpectomy of right breast History of right breast biopsy malignant History of tooth extraction all teeth removed History of total hysterectomy with bilateral salpingo-oophorectomy (BSO) Family History Grandfather (Paternal) Family history of diabetes mellitus Other No family history of adverse response to anesthesia Social History Smoking Status: Never smoker Cigarettes Per Day: 20 a day; Second Hand Exposure: Yes (parents smoked); Do You Dip or Chew Tobacco: No; Hx Alcohol Use: Yes Alcohol type: wine Hx Substance Use: No Preferred Language: Thai Communication Ability: Effective [employer] Sciences Director Required: No Beliefs That Will Affect Care: None Current Living Situation: Spouse Other Information That Helps Us Care for You: No Feels Safe at Home: Yes Safety Concerns: Feels Safe At This Time Assistive Devices: Denture - Upper, Denture - Lower and Glasses Review of Systems All systems reviewed & are unremarkable except as noted in HPI & below. Physical Exam . Constitutional well developed and well nourished; no acute distress Respiratory normal respiratory effort Cardiovascular Extremities: no edema Musculoskeletal No pain with ROM of bilateral upper extremities or right leg. No apparent trauma to her upper extremities or right leg. Left leg: she has some tenderness around the knee and hip. Skin intact. No ecchymosis of knee. She can dorsiflex and plantarflex. Skin Trauma: no evidence of skin trauma Neurologic normal touch/pain/proprioception Psychiatric Orientation: alert and oriented x 3 Results & Data Results & Data Laboratory Results . Diagnostic Findings .xrays of the femur and pelvis show a displaced reverse oblique intertrochanteric hip fracture. PG Care Time/CCT Total # of Minutes Spent Total Time Spent with Patient: Total time spent is greater than 50% in coordination of care (as documented) at patient's floor/unit and/or counseling patient: Coding Level of Care Code 35742 Inpt Consult Level 4 (57 - DECISION FOR SURGERY) Diagnoses Closed fracture of left hip S72.002A Encounter type: initial encounter (1) Closed fracture of left hip Encounter type: initial encounter Qualified Code(s): S72.002A - Fracture of unspecified part of neck of left femur, initial encounter for closed fracture
[2021-03-08] MEDS: oxyCODONE HCL IR 5 MG TAB (IMMEDIATE RELEASE) PO PRN ×3 (07:28→18:27)
[2021-03-08 07:30] LABS: BUN Creatinine Ratio 12.4 (10-20); Calcium 8.9 mg/dl (8.5-10.1); Creatinine Clr Calc Pharmacy 34.9 ml/min; Est GFR (African American) 46.4; Magnesium 2.4 mg/dl (1.8-2.4); Potassium 4.4 mmol/L (3.5-5.1)
[2021-03-08 07:41] LABS: Ferritin 21.5 ng/ml (8-388); Thyroid Stimulating Hormone 0.043 uIu/ml (0.300-4.500)
[2021-03-08 07:54] LABS: T4 Free Thyroxine 1.08 ng/dl (0.8-1.6)
[2021-03-08] MEDS: METOPROLOL TARTRATE 25 MG TAB PO SCH ×2 (08:38→20:45)
[2021-03-08] MEDS: lamoTRIgine 100 MG TAB PO SCH (08:39)
[2021-03-08] MEDS: FERROUS GLUCONATE 324 MG TAB PO SCH (08:39)
[2021-03-08] MEDS: ROFLUMILAST 500 MCG TAB PO SCH (08:40)
[2021-03-08] MEDS: CHOLECALCIFEROL 1,000 UNITS 25 MCG TAB PO SCH (08:40)
[2021-03-08] MEDS: CYANOCOBALAMIN (VITAMIN B-12) 2,500 MCG TAB.SUBL SL SCH (08:40)
[2021-03-08] MEDS: LACTATED RINGER'S 1,000 ML IV SCH (08:47)
[2021-03-08] MEDS ORDERED: LIOTHYRONINE SODIUM 5 MCG TAB PO SCH (09:00)
--- NOTE | 2021-03-08 12:26 | Hospitalist Progress Note ---
Date of Service March 08, 2021 Assessment & Plan (1) Fracture, intertrochanteric, left femur: Acute fracture- Orthopedics consulted- Dr. Robledo -For hip surgery today -Continue pain control, bowel regimen Follow CBC and BMP in the morning Appreciate orthopedic surgery consultation PT/OT consultations will be needed and likely rehab placement (2) CAD (coronary artery disease): Multivessel CAD; RCA, LCX, LAD, Left main and ramus - cardiac caths 2001, 2006,- collateral flow- medical management recommended by her licensed clinician Preoperative ECG here with sinus bradycardia without ischemia -Continue aspirin 81 mg p.o. twice daily for DVT prophylaxis and then back to once daily after that -Takes nebivolol 5mg PO QAM at home but will replace here with formulary equivalent of metoprolol 25 mg p.o. twice daily - Continue Rosuvastatin 10mg QHS - Intolerance to MARISA and ARB- cough/hives respectively (3) Hypertension: Baseline appears well controlled - elevated now secondary to pain -Continue pain control -Continue metoprolol -Add hydralazine as needed (4) Hyperlipidemia: As above, patient als with carotid plaques bilaterally but without significant stenosis - continue lipid management and BP control, aspirin (5) Hypothyroid: Was previously on levothyroxine and Cytomel - Followed by neurology for tremors, diplopia, and dysphagia- with proximal muscle weakness and gait instability and was seen by neurology several months ago and was advised to stop the levothyroxine in case it was contributing to this with thyrotoxicosis. Her tremors diplopia and dysphagia all did stop TSH here is mildly low at 0.04 with a normal free T4 -Recommend follow-up with PCP and consider endocrinology follow-up as an outpa tient May need nuclear thyroid uptake scan (6) Proximal muscle weakness: Followed by neurology-thought to be related to thyrotoxicosis as above - See Dr. Boss neurology note from 07/21/2020- for full review if this becomes issue on admission (7) COPD (chronic obstructive pulmonary disease): Borderline with PFT's - Patient does not take her inhalers daily because they make her jittery, she takes them as she feels she needs them - 2lNC while sleeping at night - No immediate needs or concerns - Continue Roflumilast, Albuterol/ipratropium. (8) Rotator cuff tear: Follows with orthopaedics, receives steroid injections ~ 3 months, if she needs them - conservitive treatment - continue AROM while in house - PT/OT consult for hip as well (9) Iron (Fe) deficiency anemia: Hemoglobin here is 10.0, iron transferrin saturation is low at 15% Follow CBC in the morning as we will likely have some blood loss anemia (10) B12 deficiency: B12 level here is borderline low at 358 Continue oral supplementation (11) Bipolar 1 disorder: Continue lamotrigine - Hold Seroquel tonight for sedating effects - restart when stable Prophylaxis-aspirin twice daily, SCDs Disposition-continued stay medical/surgical floor Called her gave him an update prior to the surgery Admission and Anticipated Discharge Date Admission Date: March 07, 2021 Subjective Pt seen prior to hip surgery today. She reports significant amounts of pain and is taking IV Dilaudid for this. She denies any chest pains or shortness of breath, no nausea or abdominal pains. She reports prior to this no recent cardiac issues. She describes her collaterals seen on cardiac catheterization many years ago and follows with Dr. Castillo. She reports that she has not taking any of her thyroid medications as she was directed to stop them at least several months ago. Review of Systems Review of Systems: All systems reviewed & are unremarkable except as noted in HPI & below Physical Exam Constitutional: WD/WN, vitals as above Eyes: + anicteric sclerae ENMT: external ear and nose normal, oropharynx normal Neck: trachea midline, no thyromegaly Respiratory: normal respiratory effort, lungs clear to auscultation Cardiovascular: RRR, no murmur, no edema Chest (Breasts): Chest: normal inspection of chest Gastrointestinal (Abdomen): normal bowel sounds, soft, nontender, no hepatosplenomegaly Musculoskeletal: Extremities: + extremities abnormal to inspection (LLE shortened and internally rotated), no cyanosis and no clubbing Skin: no rashes, warm and dry Neurologic: moves all extremities and awake; no focal motor deficits Psychiatric: A+Ox3, euthymic affect Genitourinary: Andrews in place Lymphatic: no lymphedema Results & Data Results & Data ([facility]) Vital Signs (Past 12 Hours) Vital Signs Temp Pulse Resp BP Pulse Ox 03/08/21 12:13 166/82 H 03/08/21 07:24 37.2 C 90 18 171/64 H 92 Laboratory Results 03/08/21 03/08/21 03/08/21 Range/Units 06:41 06:41 06:41 WBC (4.8-10.8) K/uL RBC (4.2-5.4) M/uL Hgb (12.0-16.0) g/dL Hct (37-47) % MCV (80-100) fL MCH (25-34) pg MCHC (32-36) g/dL RDW Std Deviation (36.4-46.3) fL RDW Coeff of Gino (11.5-14.5) % Plt Count (130-400) K/uL MPV (7.4-10.4) fL Immature Gran % (Auto) % Neut % (Auto) % Lymph % (Auto) % [place] % (Auto) % Eos % (Auto) % Baso % (Auto) % Neut # (Auto) (1.4-6.5) K/uL Lymph # (Auto) (1.2-3.4) K/uL [place] # (Auto) (0.11-0.59) K/uL Eos # (Auto) (0-0.5) K/uL Baso # (Auto) (0-0.2) K/uL Immature Gran # (Auto) (0.00-0.02) K/uL Sodium 139 (136-145) mmol/L Potassium 4.4 (3.5-5.1) mmol/L Chloride 109 H (98-107) mmol/L Carbon Dioxide 29 (21-32) mmol/L Anion Gap 1.0 L (3-11) BUN 16 (7-18) mg/dl Creatinine 1.28 H (0.6-1.2) mg/dl Est Cr Clr Drug Dosing 34.9 ml/min Est GFR ( Amer) 46.4 Est GFR (Non-Af Amer) 40.0 BUN/Creatinine Ratio 12.4 (10-20) Glucose 109 H (70-99) mg/dl Estimat Average Glucose 105 mg/dl Hemoglobin A1c 5.3 (4.5-5.6) % Calcium 8.9 (8.5-10.1) mg/dl Magnesium 2.4 (1.8-2.4) mg/dl Iron 60 (35-150) mcg/dl Transferrin 278 (200-360) mg/dl Transferrin % Sat 15 (15-50) % Ferritin 21.5 (8-388) ng/ml Triglycerides 89 (0-150) mg/dl Cholesterol 189 (0-200) mg/dl LDL Cholesterol, Calc 118 mg/dl VLDL Cholesterol, Calc 18 mg/dl HDL Cholesterol 53 mg/dl Cholesterol/HDL Ratio 4 Vitamin B12 358 (193-986) pg/ml TSH 0.043 L (0.300-4.500) uIu/ml Free T4 1.08 (0.8-1.6) ng/dl Urine Color Urine Appearance (Clear) Urine pH (4.5-7.5) Ur Specific [place] (1.000-1.030) Urine Protein (Negative) Urine Glucose (UA) (Negative) Urine Ketones (Negative) Urine Blood (Negative) Urine Nitrite (Negative) Urine Bilirubin (Negative) Urine Urobilinogen (Negative) Ur Leukocyte Esterase (Negative) Urine WBC (Auto) (0-5) /hpf Urine RBC (Auto) (0-4) /hpf U Hyaline Cast (Auto) (0-5) /lpf U Epithel Cells (Auto) (0-5) /lpf Urine Bacteria (Auto) (Negative) Urine Mucus (None Prsent) 03/08/21 03/07/21 Range/Units 06:41 22:00 WBC 6.68 (4.8-10.8) K/uL RBC 3.43 L (4.2-5.4) M/uL Hgb 10.0 L (12.0-16.0) g/dL Hct 31.1 L (37-47) % MCV 90.7 (80-100) fL MCH 29.2 (25-34) pg MCHC 32.2 (32-36) g/dL RDW Std Deviation 48.0 H (36.4-46.3) fL RDW Coeff of Gino 14.5 (11.5-14.5) % Plt Count 222 (130-400) K/uL MPV 9.4 (7.4-10.4) fL Immature Gran % (Auto) 0.1 % Neut % (Auto) 68.1 % Lymph % (Auto) 18.1 % [place] % (Auto) 12.4 % Eos % (Auto) 0.9 % Baso % (Auto) 0.4 % Neut # (Auto) 4.54 (1.4-6.5) K/uL Lymph # (Auto) 1.21 (1.2-3.4) K/uL [place] # (Auto) 0.83 H (0.11-0.59) K/uL Eos # (Auto) 0.06 (0-0.5) K/uL Baso # (Auto) 0.03 (0-0.2) K/uL Immature Gran # (Auto) 0.01 (0.00-0.02) K/uL Sodium (136-145) mmol/L Potassium (3.5-5.1) mmol/L Chloride (98-107) mmol/L Carbon Dioxide (21-32) mmol/L Anion Gap (3-11) BUN (7-18) mg/dl Creatinine (0.6-1.2) mg/dl Est Cr Clr Drug Dosing ml/min Est GFR ( Amer) Est GFR (Non-Af Amer) BUN/Creatinine Ratio (10-20) Glucose (70-99) mg/dl Estimat Average Glucose mg/dl Hemoglobin A1c (4.5-5.6) % Calcium (8.5-10.1) mg/dl Magnesium (1.8-2.4) mg/dl Iron (35-150) mcg/dl Transferrin (200-360) mg/dl Transferrin % Sat (15-50) % Ferritin (8-388) ng/ml Triglycerides (0-150) mg/dl Cholesterol (0-200) mg/dl LDL Cholesterol, Calc mg/dl VLDL Cholesterol, Calc mg/dl HDL Cholesterol mg/dl Cholesterol/HDL Ratio Vitamin B12 (193-986) pg/ml TSH (0.300-4.500) uIu/ml Free T4 (0.8-1.6) ng/dl Urine Color Dark Yellow Urine Appearance Cloudy A (Clear) Urine pH 5.0 (4.5-7.5) Ur Specific [place] 1.032 H (1.000-1.030) Urine Protein Trace H (Negative) Urine Glucose (UA) Negative (Negative) Urine Ketones Trace H (Negative) Urine Blood Negative (Negative) Urine Nitrite Negative (Negative) Urine Bilirubin 1+ H (Negative) Urine Urobilinogen Negative (Negative) Ur Leukocyte Esterase Negative (Negative) Urine WBC (Auto) 1-5 (0-5) /hpf Urine RBC (Auto) 0-4 (0-4) /hpf U Hyaline Cast (Auto) 10-30 H (0-5) /lpf U Epithel Cells (Auto) >30 H (0-5) /lpf Urine Bacteria (Auto) 1+ H (Negative) Urine Mucus Present A (None Prsent) PG Care Time/CCT Total # of Minutes Spent Total Time Spent with Patient: Total time spent is greater than 50% in coordination of care (as documented) at patient's floor/unit and/or counseling patient: Coding Level of Care Code 99478 Subseq Hosp Care Lvl 3 Diagnoses Fracture, intertrochanteric, left femur S72.145A Encounter type: initial encounter Fracture alignment: nondisplaced Fracture type: closed CAD (coronary artery disease) I25.10 Associated angina: without angina Coronary Disease-Associated Artery/Lesion type: [place] artery [place] vs. transplanted heart: [place] heart Hypertension I10 Hypertension type: essential hypertension Hyperlipidemia E78.5 Hyperlipidemia type: unspecified Hypothyroid E03.9 Hypothyroidism type: unspecified Proximal muscle weakness M62.81 COPD (chronic obstructive pulmonary disease) J44.9 COPD type: unspecified COPD Rotator cuff tear M75.100 Laterality: right Rotator cuff tear extent: unspecified tear extent Rotator cuff tear trauma status: traumatic Iron (Fe) deficiency anemia D50.9 Iron deficiency anemia type: unspecified iron deficiency B12 deficiency E53.8 Bipolar 1 disorder F31.9 (1) CAD (coronary artery disease) Associated angina: without angina Coronary Disease-Associated Artery/Lesion type: [place] artery [place] vs. transplanted heart: [place] heart Qualified Code(s): I25.10 - Atherosclerotic heart disease of [place] coronary artery without angina pectoris (2) Hyperlipidemia Hyperlipidemia type: unspecified Qualified Code(s): E78.5 - Hyperlipidemia, unspecified (3) Hypothyroid Hypothyroidism type: unspecified Qualified Code(s): E03.9 - Hypothyroidism, unspecified (4) Iron (Fe) deficiency anemia Iron deficiency anemia type: unspecified iron deficiency Qualified Code(s): D50.9 - Iron deficiency anemia, unspecified (5) COPD (chronic obstructive pulmonary disease) COPD type: unspecified COPD Qualified Code(s): J44.9 - Chronic obstructive pulmonary disease, unspecified (6) Hypertension Hypertension type: essential hypertension Qualified Code(s): I10 - Essential (primary) hypertension (7) Rotator cuff tear Laterality: right Rotator cuff tear extent: unspecified tear extent Rotator cuff tear trauma status: traumatic (8) Fracture, intertrochanteric, left femur Encounter type: initial encounter Fracture alignment: nondisplaced Fracture type: closed Qualified Code(s): S72.145A - Nondisplaced intertrochanteric fracture of left femur, initial encounter for closed fracture
[2021-03-08] MEDS ORDERED: LIDOCAINE HCL 2% 2 ML VIAL/AMP(20MG/ML) INFIL ONE (13:13)
[2021-03-08] MEDS ORDERED: PROPOFOL IV EMULSION 10 MG/ML 20 ML VIAL IV ONE ×2 (13:13→14:49)
[2021-03-08] MEDS ORDERED: MIDAZOLAM HCL 1 MG/ML 2ML VIAL ONE (13:14)
[2021-03-08] MEDS ORDERED: fentaNYL citrate 100 MCG/2 ML VIAL ONE (13:14)
[2021-03-08] MEDS ORDERED: ePHEDrine sulfate 50 MG/ML AMP IV PRN (13:19)
[2021-03-08] MEDS ORDERED: ONDANSETRON INJ 2 MG/ML 2 ML VIAL IV PRN (13:19)
[2021-03-08] MEDS ORDERED: fentaNYL citrate 100 MCG/2 ML VIAL IV PRN (13:19)
[2021-03-08] MEDS ORDERED: ATROPINE SULFATE 0.1 MG/ML 10ML SYR IV PRN (13:19)
--- NOTE | 2021-03-08 13:19 | Anesthesiology Consultation ---
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 History Surgery Operation Date: 03/08/21 10:15 Proposed Procedures p Trochanteric Nail Long Left - Kevon Lopez MD Height/Weight Height: 5 ft 1 in Weight: 80.739 kg Allergies Allergy/AdvReac Type Severity Reaction Status Date / Time metoclopramide Allergy Intermediate ESSENTIAL Verified 03/07/21 17:12 TREMORS clopidogrel Allergy Mild HIVES Verified 03/07/21 17:12 diazepam Allergy Mild DEPRESSION Verified 03/07/21 17:12 diltiazem Allergy Mild Light Verified 03/07/21 17:12 headed erythromycin base Allergy Mild EES, TAKES Verified 03/07/21 17:12 Z-PACKS W/O RXN gabapentin Allergy Mild States Verified 03/07/21 17:12 hands catch fire latex Allergy Mild rips skin Verified 03/07/21 17:12 off lisinopril Allergy Mild COUGH Verified 03/07/21 17:12 losartan Allergy Mild HIVES Verified 03/07/21 17:12 micafungin Allergy Mild rash Verified 03/07/21 17:12 oxycodone Allergy Mild INC. Verified 03/07/21 17:12 DEPRESSION Penicillins Allergy Mild Diarrhea Verified 03/07/21 17:12 promethazine Allergy Mild TROUBLE Verified 03/07/21 17:12 FOCUSING SPEAKING AT HIGHER DOSES Sulfa (Sulfonamide Allergy Mild SKIN Verified 03/07/21 17:12 Antibiotics) BECOMES PHOTOSENSITIVE AND BECOMES RED bupropion Allergy Unknown unknown Verified 03/07/21 17:12 dicyclomine Allergy Unknown Unknown Verified 03/07/21 17:12 potassium chloride Allergy Unknown Unknown Verified 03/07/21 17:12 sucralfate Allergy Unknown Unknown Verified 03/07/21 17:12 [id number]-[id number]-Nhx Reductase AdvReac Intermediate Diarrhea Verified 03/07/21 21:01 Inhibitor amoxicillin AdvReac Mild DIARRHEA Verified 03/07/21 17:12 clavulanic acid AdvReac Mild DIARRHEA Verified 03/07/21 17:12 hydrocodone AdvReac Mild "dont like Verified 03/07/21 17:12 how it makes me feel" Medications Home Medications Medication Instructions Recorded Confirmed Last Taken dexlansoprazole 60 mg PO HS 01/01/19 03/07/21 03/06/21 lamotrigine 150 mg PO QAM 01/01/19 03/07/21 03/07/21 nebivolol 5 mg PO QAM 01/01/19 03/07/21 03/07/21 nitroglycerin [Nitrostat] 0.4 mg SUBLINGUAL UD PRN 01/01/19 03/07/21 Unknown quetiapine 150 mg PO HS 01/01/19 03/07/21 03/06/21 roflumilast 500 mcg PO QAM 01/01/19 03/07/21 03/07/21 ferrous gluconate 236 mg PO QAM 05/14/19 03/07/21 03/07/21 aspirin 81 mg tablet,delayed 81 mg PO DAILY #90 tab 07/08/20 03/07/21 03/07/21 release Oxygen Home #1 ea 07/21/20 01/11/21 Unknown cholecalciferol (vitamin D3) 25 25 mcg PO DAILY 01/11/21 03/07/21 03/07/21 mcg (1,000 unit) capsule cyanocobalamin (vitamin B-12) 5,000 mcg PO DAILY 01/11/21 03/07/21 03/07/21 5,000 mcg capsule ipratropium 20 mcg-albuterol 100 2 puff INHALATION Q6H PRN g 01/11/21 03/07/21 Unknown mcg/actuation mist for inhalation rosuvastatin 10 mg tablet 10 mg PO HS 01/11/21 03/07/21 03/06/21 Active Medications Generic Name Dose Route Start Last Admin Trade Name Freq PRN Reason Stop Dose Admin Cyanocobalamin 5,000 mcg 03/08/21 09:00 03/08/21 08:40 Cyanocobalamin (Vitamin B-12) 2,500 Mcg Tab.Subl SL 04/07/21 08:59 5,000 mcg DAILY JANINE Administration Ferrous Gluconate 324 mg 03/08/21 09:00 03/08/21 08:39 Ferrous Gluconate 324 Mg Tab PO 04/07/21 08:59 324 mg QAM JANINE Administration Hydromorphone HCl 0.5 mg 03/07/21 18:46 03/08/21 11:03 Hydromorphone Inj 0.5 Mg/0.5 Ml Syr IV 03/21/21 18:45 0.5 mg Q2H PRN Administration Pain Lactated Ringer's 1,000 mls @ 80 mls/hr 03/07/21 20:55 03/08/21 08:47 Lr IV 04/06/21 20:54 80 mls/hr .[id number] JANINE Administration Lamotrigine 150 mg 03/08/21 09:00 03/08/21 08:39 Lamotrigine 100 Mg Tab PO 04/07/21 08:59 150 mg QAM JANINE Administration Melatonin 3 mg 03/08/21 01:16 03/08/21 01:22 Melatonin 3 Mg Tab PO 04/07/21 01:15 3 mg HS PRN Administration Sleep Metoprolol Tartrate 25 mg 03/08/21 09:00 03/08/21 08:38 Metoprolol Tartrate 25 Mg Tab PO 04/07/21 08:59 25 mg BID JANINE Administration Oxycodone HCl 5 mg 03/07/21 20:55 03/08/21 12:53 Oxycodone Hcl Ir 5 Mg Tab (Immediate Release) PO 03/21/21 20:54 5 mg Q4H PRN Administration MODERATE Pain (4,5,6) & Pre PT Pantoprazole Sodium 40 mg 03/07/21 21:00 03/07/21 21:48 Pantoprazole 40 Mg Tab PO 04/06/21 20:59 40 mg HS JANINE Administration Roflumilast 500 mcg 03/08/21 09:00 03/08/21 08:40 Roflumilast 500 Mcg Tab PO 04/07/21 08:59 500 mcg QAM JANINE Administration Rosuvastatin Calcium 10 mg 03/07/21 21:00 03/07/21 21:48 Rosuvastatin Calcium 10 Mg Tab PO 04/06/21 20:59 10 mg HS JANINE Administration Senna/Docusate Sodium 2 tab 03/07/21 21:00 03/07/21 21:48 Docusate Sodium/Senna 50/8.6mg Tab PO 04/06/21 20:59 2 tab HS JANINE Administration Vitamin D 1,000 units 03/08/21 09:00 03/08/21 08:40 Cholecalciferol 1,000 Units 25 Mcg Tab PO 04/07/21 08:59 1,000 units DAILY JANINE Administration NPO Date Last Intake of Fluids: 03/07/21 Time Last Intake of Fluids: 23:59 Date Last Intake of Solids: 03/07/21 Time Last Intake of Solids: 18:00 Past Medical History Medical History Anemia REASON FOR COLONOSCOPY 07/2019 Bipolar 1 disorder Breast cancer, right 2014--stage 1--lumpectomy and radiation CAD (coronary artery disease) Chronic obstructive pulmonary disease inhaler daily Degenerative joint disease Depression History of colon polyps Hyperlipidemia Hypertension Hypothyroidism Medical marijuana use Myocardial Infarction "silent" in --follows with Dr. Gibbs On home oxygen therapy 2L N/C at hs Pancreatitis hx of Papilloma of breast left Sleep apnea Temporal arteritis Unstable angina Past Family History Family History Grandfather (Paternal) Family history of diabetes mellitus Other No family history of adverse response to anesthesia Past Surgical History Surgical History History of bilateral cataract extraction History of bilateral tubal ligation History of breast surgery removal of papilloma of left breast History of cardiac cath x3--last ---no stents History of cholecystectomy History of colonoscopy History of esophagogastroduodenoscopy (EGD) History of lumpectomy of right breast History of right breast biopsy malignant History of tooth extraction all teeth removed History of total hysterectomy with bilateral salpingo-oophorectomy (BSO) Social History Smoking Status: Never smoker tobacco type: cigarettes Smoking cigarettes per day: 20 a day Do You Dip or Chew Tobacco: No Hx Alcohol Use: Yes Alcohol type: wine alcohol intake frequency: holidays/special occasions only Hx Substance Use: No substance use type: does not use Last Used Substance Other:: ues 3x a week Physical Exam Vital Signs Last Vital Signs Temp 99.0 F 03/08/21 07:24 Pulse 90 03/08/21 07:24 Resp 18 03/08/21 07:24 BP 166/82 H 03/08/21 12:13 Pulse Ox 92 03/08/21 07:24 Testing Laboratory Results 03/08/21 06:41 03/08/21 06:41 PT 10.3 Seconds (9.0-12.0) 03/07/21 16:51 INR 1.0 (0.9-1.1) 03/07/21 16:51 APTT 21.6 Seconds (21.0-31.0) 03/07/21 16:51 Hemoglobin A1c 5.3 % (4.5-5.6) 03/08/21 06:41 Urine Color Dark Yellow 03/07/21 22:00 Urine Appearance Cloudy (Clear) A 03/07/21 22:00 Urine pH 5.0 (4.5-7.5) 03/07/21 22:00 Ur Specific Hurley 1.032 (1.000-1.030) H 03/07/21 22:00 Urine Protein Trace (Negative) H 03/07/21 22:00 Urine Glucose (UA) Negative (Negative) 03/07/21 22:00 Urine Ketones Trace (Negative) H 03/07/21 22:00 Urine Nitrite Negative (Negative) 03/07/21 22:00 Ur Leukocyte Esterase Negative (Negative) 03/07/21 22:00 Urine WBC (Auto) 1-5 /hpf (0-5) 03/07/21 22:00 Urine RBC (Auto) 0-4 /hpf (0-4) 03/07/21 22:00 U Hyaline Cast (Auto) 10-30 /lpf (0-5) H 03/07/21 22:00 U Epithel Cells (Auto) >30 /lpf (0-5) H 03/07/21 22:00 Urine Bacteria (Auto) 1+ (Negative) H 03/07/21 22:00 Blood Type B Positive 03/07/21 17:36 Antibody Screen NEGATIVE 03/07/21 17:36 Electrocardiogram Date: 03/07/21 Findings: + SB @ (59 bpm) Chest X-Ray Date: 03/07/21 Findings: + NAD Pulmonary Function Test Date: 01/18/21 Spirometry indicates mild obstructive ventilatory defect with no significant post-bronchodilator response. Lung volumes suggest hyperinflation and air trapping. DLCO is mildly reduced, but corrects for alveolar volume. This profile can be compatible with possible COPD. Please clinically correlate.
[2021-03-08] MEDS ORDERED: BUPIVACAINE 0.5 % 5 MG/1 ML PF 10ML VIAL ONE (13:43)
--- NOTE | 2021-03-08 13:43 | History & Physical Bridge Note ---
Date of Service March 08, 2021 History & Physical Bridge Note I have examined the patient, reviewed the History & Physical and in the interval since the performance of the History & Physical I have noted the following changes of clinical significance: no changes noted
[2021-03-08] MEDS ORDERED: BUPIVACAINE/EPINEPHRINE 0.5% MPF 1:200,000 30 ML VIAL ONE (13:51)
[2021-03-08] MEDS ORDERED: PHENYLEPHRINE 100MCG/ML 5ML SYR ONE (14:21)
--- NOTE | 2021-03-08 14:22 | Electrocardiogram Report ---
Test Reason : Blood Pressure : / mmHG Vent. Rate : 059 BPM Atrial Rate : 059 BPM P-R Int : 148 ms QRS Dur : 072 ms QT Int : 428 ms P-R-T Axes : 089 050 060 degrees QTc Int : 423 ms Sinus bradycardia Otherwise normal ECG When compared with ECG of 17-DEC-2019 03:58, No significant change was found Confirmed by Abad Ledezma ([id number]) on 03/08/2021 2:22:02 PM Referred By: REFERRED SELF Confirmed By:Blayne Ledezma
--- NOTE | 2021-03-08 14:33 | Electrocardiogram Report ---
Test Reason : Blood Pressure : / mmHG Vent. Rate : 058 BPM Atrial Rate : 058 BPM P-R Int : 146 ms QRS Dur : 074 ms QT Int : 434 ms P-R-T Axes : 076 049 067 degrees QTc Int : 426 ms Sinus bradycardia Otherwise normal ECG When compared with ECG of 07-MAR-2021 17:23, (unconfirmed) No significant change was found Confirmed by Abad Ledezma ([id number]) on 03/08/2021 2:32:58 PM Referred By: REFERRED SELF Confirmed By:Blayne Ledezma
[2021-03-08] MEDS ORDERED: ePHEDrine sulfate 50 MG/ML SYR ONE (15:15)
--- NOTE | 2021-03-08 15:22 | Fluoroscopy Report ---
FL hip LT 2-3V CLINICAL HISTORY: LT LONG TROCH NAIL COMPARISON STUDY: Left femur radiographs March 07, 2021. FLUOROSCOPY TIME: 81 seconds. FLUOROSCOPIC IMAGES: 4 FINDINGS: Fluoroscopy was provided during internal fixation of the intertrochanteric fracture of the left femur with trochanteric nail. Fracture alignment has improved and appears near anatomic. Hardwar e is intact. There are no unexpected radiopaque foreign bodies. There is a distal screw. IMPRESSION: Fluoroscopy provided during internal fixation of the intertrochanteric fracture of the l eft femur. ACT 112: Negative or not required by law. Electronically signed by: Wes Lui M.D. 03/08/2021 3:20 PM
--- NOTE | 2021-03-08 15:29 | Post Operative Brief Note ---
PG Immediate Post Op with CF Date of Surgery March 08, 2021 Pre & Post Diagnosis Operation Date: 03/08/21 10:15 Pre-Op Diagnosis: PROXIMAL INTERTROCHANTERIC FRACTURE Post-Op Diagnosis: PROXIMAL INTERTROCHANTERIC FRACTURE I identified the patient and participated in the time-out.: Yes Procedure Operation Date: 03/08/21 10:15 Actual Procedures p Trochanteric Nail Long Left(Left) - Kevon Lopez MD Surgeon Kevon Lopez MD Fashion Illustrator CHANO Webb Estimated Blood Loss 100 Findings Consistent with Post-Op Diagnosis Fluids 500 cc Specimens Specimen Description: none per surgeon Drains Andrews Catheter Complications none Disposition Accompanied Patient To Recovery: Yes Disposition: Recovery Room
--- NOTE | 2021-03-08 16:03 | Anesthesiology Progress Note ---
Date of Service March 08, 2021 Anesthesia Post Procedure Vital Signs Vital Signs: Temp Pulse Pulse Pulse Resp BP BP 03/08/21 15:55 36.6 C 62 18 149/60 H 03/08/21 15:45 64 14 154/66 H 03/08/21 15:35 68 16 133/58 L 03/08/21 15:29 36.4 C L 71 22 120/49 L 03/08/21 13:39 68 18 191/75 H 03/08/21 12:13 166/82 H 03/08/21 07:24 37.2 C 90 18 171/64 H 03/07/21 22:56 36.9 C 65 16 193/71 H 03/07/21 20:31 65 17 182/59 H 03/07/21 19:30 59 L 14 203/77 H 03/07/21 19:14 59 L 59 L 14 195/96 H 195/96 H 03/07/21 19:00 62 13 208/106 H 03/07/21 18:58 36.9 C 03/07/21 18:56 63 17 227/75 H 03/07/21 18:55 61 18 227/75 H 03/07/21 18:30 59 L 16 216/71 H 03/07/21 18:01 60 18 184/74 H 03/07/21 17:28 03/07/21 17:27 65 18 179/90 H 03/07/21 16:17 69 18 193/88 H Pulse Ox 03/08/21 15:55 97 03/08/21 15:45 95 03/08/21 15:35 94 03/08/21 15:29 95 03/08/21 13:39 99 03/08/21 12:13 03/08/21 07:24 92 03/07/21 22:56 100 03/07/21 20:31 99 03/07/21 19:30 98 03/07/21 19:14 99 03/07/21 19:00 100 03/07/21 18:58 03/07/21 18:56 100 03/07/21 18:55 100 03/07/21 18:30 100 03/07/21 18:01 97 03/07/21 17:28 99 03/07/21 17:27 99 03/07/21 16:17 93 Pain Intensity Left Hip: Pain Intensity: 1 Transfer of Care Handoff Completed per policy Notes Mental Status: alert / awake / arousable Patient Amnestic to Procedure: Yes Nausea / Vomiting: adequately controlled Pain: adequately controlled Airway Patency, RR, SpO2: stable & adequate BP & HR: stable & adequate Hydration State: stable & adequate Neuraxial Anesthesia: was administered and sensory block is resolving Anesthetic Complications: no major complications apparent and Pt Satisfied with anesthetic care
[2021-03-08] MEDS ORDERED: NALOXONE HCL 0.4 MG/1 ML VIAL/CARP IV PRN (16:22)
[2021-03-08] MEDS: ONDANSETRON INJ 2 MG/ML 2 ML VIAL IV PRN (17:24)
--- NOTE | 2021-03-08 18:00 | Operative Report ---
Post Operative Report Pre & Post Diagnosis Operation Date: 03/08/21 10:15 Pre-Op Diagnosis: Left displaced reverse obliquity PROXIMAL INTERTROCHANTERIC FRACTURE of the femur Post-Op Diagnosis: Left displaced reverse obliquity PROXIMAL INTERTROCHANTERIC FRACTURE of the f errol Snider identified the patient and participated in the time-out.: Yes Procedure Operation Date: 03/08/21 10:15 Actual Procedures p Trochanteric Nail Long Left(Left) - Kevon Lopez MD Surgeon Kevon Lopez MD Lighting Equipment Operator CHANO Webb Estimated Blood Loss 100 Findings Consistent with Post-Op Diagnosis Specimens None. Disposition Accompanied Patient To Recovery: No Disposition: Recovery Room Indications Patient is a 80-year-old female who sustained a fall yesterday. She had no history of pre-existing hip pain. She was brought to emergency room where x- rays revealed a displaced reverse obliquity intertrochanteric hip fracture. She was admitted by the medicine service, medically optimized, and indicated for surgical treatment. Description of Procedure Operative implants consisted of: 1. Synthes left 340 mm x 11 mm long trochanteric nail. 2. 90 mm helical blade. 3. 44 mm distal interlocking screw. The patient was taken to the operating room, identified, placed on the operating table supine position but a contractors were properly padded. IV antibiotics tried by anesthesia team. A spinal anesthetic and been implemented holding area. Patient was then placed on the fracture table. The left leg was placed in boot traction the right leg was placed in a well-leg bello. Some longitudinal traction was applied and the foot was internally rotated so the kneecap pointed to the ceiling. X-ray was brought in. The fracture was nearly anatomically aligned. We did have to distracted slightly to do this. The left hip and leg were then scrubbed with Hibiclens, prepped with ChloraPrep and draped in usual sterile fashion. A curvilinear incision was made just proximal to the tip of the greater trochanter. Sharp dissection Through subcutaneous tissue down the level gluteal fascia. The gluteal fascia was incised longitudinally in line with skin incision. A guidewire was placed just lateral to the tip of the trochanter and in line with the IM canal both the AP and lateral planes. This was advanced down the canal. Position was verified fluoroscopically. It was overreamed with a 17 mm reamer. The guidewire was removed and a ball-tipped guidewire was placed down the IM canal across the fracture site. Femur length was measured and a 340 mm nail was selected. I did reamed the femur beginning with a size 11 and progressing up to 12-1/2. A left 340 mm x 11 long trochanteric nail was then advanced over the guidewire and the guidewire was removed. We tapped this in position. A lateral aiming arm was placed. A stab incision was made in the lateral aspect of the proximal femur and the aiming arm was advanced to the lateral aspect of the femur. I did try to use the guide to reduce the lateral aspect of the fracture slightly. A guidewire was placed in the center of the femoral head neck in both AP and lateral planes. This was measured. A 90 mm helical blade was selected. The cortical drill was used to breach the cortex and the triple reamer was used to ream over the guidewire. A 90 mm helical blade was placed. The proximal setscrew was tightened. The proximal aiming arm was then removed and some final x-rays were obtained. We then remove the traction from the femur to allow it to settle as much as possible. I then used the perfect sioux technique to place a distal interlocking screw. Perfect circles were obtained. A stab incision was made. The drill was used and a 44 mm distal interlocking screw was placed. Some final x-rays were obtained. Attention then turned toward closing. All wounds were irrigated scopes amounts of irrigation. The gluteal fascia was closed with 0 Vicryl suture in running fashion for the subcutaneous tissues of the proximal wound were closed in 2 layers with a deep layer #1 Vicryl suture subcutaneous tissues with 2-0 Dexon suture in a buried interrupted fashion. The other wounds were closed just with the subcu tissues with 2-0 Dexon suture. The skin was then closed with skin anderson. Leg was then cleaned dried a sterile dressing composed Xeroform, 4 x 4's, sterile ABD pad, foam tape was applied. The patient was then taken off the fracture table and transferred to the recovery room in stable condition. The patient tolerated the procedure well and there were no complications. Geronimo Webb, my physician registered dental assistant rda, was present for the entire procedure. His assistance was required for proper patient positioning, prepping and draping, surgical exposure, retraction, placement of the hardware, closure of the wound, and placement of sterile bandage. I attest to the content of the Intraoperative Record and any orders documented therein. Any exceptions are noted below.
[2021-03-08] MEDS: ACETAMINOPHEN 325 MG TAB PO PRN (18:27)
[2021-03-08] MEDS: DOCUSATE SODIUM/SENNA 50/8.6MG TAB PO SCH (20:45)
[2021-03-08] MEDS: ROSUVASTATIN CALCIUM 10 MG TAB PO SCH (20:45)
[2021-03-08] MEDS: PANTOprazole 40 MG TAB PO SCH (20:45)
[2021-03-08] MEDS: ASPIRIN 81 MG ECTAB PO SCH (20:47)
[2021-03-08] MEDS ORDERED: hydrALAZINE HCL 20 MG/ML VIAL IV PRN (21:55)
[2021-03-09] MEDS: LACTATED RINGER'S 1,000 ML IV SCH (00:51)
[2021-03-09] MEDS: ONDANSETRON INJ 2 MG/ML 2 ML VIAL IV PRN ×2 (05:08→17:20)
[2021-03-09 07:11] LABS: Basophils # (auto) 0.02 K/uL (0-0.2); Basophils % (auto) 0.2 %; Eosinophils # (auto) 0.06 K/uL (0-0.5); Eosinophils % (auto) 0.7 %; Hematocrit (blood only) 29.2 % (37-47); Hemoglobin 9.4 g/dL (12.0-16.0); Immature Granulocytes # (auto) 0.02 K/uL (0.00-0.02); Immature Granulocytes % (auto) 0.2 %; Lymphocytes # (auto) 0.86 K/uL (1.2-3.4); Lymphocytes % (auto) 9.5 %; Mean Corpuscular Hgb Conc 32.2 g/dL (32-36); Mean Corpuscular Volume 90.1 fL (80-100); Mean Platelet Volume 9.6 fL (7.4-10.4); Monocytes # (auto) 1.02 K/uL (0.11-0.59); Monocytes % (auto) 11.2 %; Neutrophils # (auto) 7.11 K/uL (1.4-6.5); Neutrophils % (auto) 78.2 %; Platelet Count 202 K/uL (130-400); RDW Coefficient of Variation 14.3 % (11.5-14.5); RDW Standard Deviation 47.6 fL (36.4-46.3); Red Blood Count 3.24 M/uL (4.2-5.4); White Blood Count 9.09 K/uL (4.8-10.8)
[2021-03-09 07:44] LABS: BUN Creatinine Ratio 13.7 (10-20); Calcium 8.6 mg/dl (8.5-10.1); Creatinine Clr Calc Pharmacy 38.8 ml/min; Est GFR (African American) 52.8; Est GFR (Non-African American) 45.5; Potassium 4.6 mmol/L (3.5-5.1)
[2021-03-09] MEDS: FERROUS GLUCONATE 324 MG TAB PO SCH ×2 (08:49→17:08)
[2021-03-09] MEDS: ASPIRIN 81 MG ECTAB PO SCH ×2 (08:49→21:21)
[2021-03-09] MEDS: METOPROLOL TARTRATE 25 MG TAB PO SCH ×3 (08:50→21:21)
[2021-03-09] MEDS: lamoTRIgine 100 MG TAB PO SCH (08:50)
[2021-03-09] MEDS: CHOLECALCIFEROL 1,000 UNITS 25 MCG TAB PO SCH (08:50)
[2021-03-09] MEDS: ROFLUMILAST 500 MCG TAB PO SCH (08:51)
[2021-03-09] MEDS: CYANOCOBALAMIN (VITAMIN B-12) 2,500 MCG TAB.SUBL SL SCH (08:51)
[2021-03-09] MEDS: oxyCODONE HCL IR 5 MG TAB (IMMEDIATE RELEASE) PO PRN ×2 (08:52→15:43)
[2021-03-09] MEDS: HYDROmorphone INJ 0.5 MG/0.5 ML SYR IV PRN ×3 (10:30→17:08)
--- NOTE | 2021-03-09 11:47 | Hospitalist Progress Note ---
Date of Service March 09, 2021 Assessment & Plan (1) Fracture, intertrochanteric, left femur: Acute fracture secondary to mechanical fall- Orthopedics consulted-now status post ORIF on 03/[address] Lopez -Having pain control issues postoperatively but is out of bed and working with PT/OT -Continue pain control, bowel regimen Hemoglobin with only slight drop down to 9.4 on postop day #1 Follow CBC and BMP again in the morning Appreciate orthopedic surgery consultation PT/OT consultations pending and likely rehab placement DVT prophylaxis with aspirin p.o. twice daily and SCDs (2) CAD (coronary artery disease): Multivessel CAD; RCA, LCX, LAD, Left main and ramus - cardiac caths 2001, 2006,- collateral flow- medical management recommended by her biotechnologist Preoperative ECG here with sinus bradycardia without ischemia Not having any chest pain or acute issues -Continue aspirin 81 mg p.o. twice daily for DVT prophylaxis and then back to once daily after that -Takes nebivolol 5mg PO QAM at home but will replace here with formulary eq uivalent of metoprolol 25 mg p.o. which will now be increased to 3 times daily for elevated blood pressure - Continue Rosuvastatin 10mg QHS - Intolerance to MARISA and ARB- cough/hives respectively (3) Hypertension: Baseline appears well controlled - elevated now secondary to pain-persists in the 180s systolic -Continue pain control -Continue metoprolol but increase to 25 mg p.o. 3 times daily -Continue IV hydralazine as needed (4) Hyperlipidemia: As above, patient als with carotid plaques bilaterally but without significant stenosis - continue lipid management and BP control, aspirin (5) Hypothyroid: Was previously on levothyroxine and Cytomel - Followed by neurology for tremors, diplopia, and dysphagia- with proximal muscle weakness and gait instability and was seen by neurology several months ago and was advised to stop the levothyroxine in case it was contributing to this with thyrotoxicosis. Her tremors diplopia and dysphagia all did stop TSH here is mildly low at 0.04 with a normal free T4 -Recommend follow-up with PCP and consider endocrinology follow-up as an outpatient May need nuclear thyroid uptake scan as an outpatient (6) Proximal muscle weakness: Followed by neurology-thought to be related to thyrotoxicosis as above - See Dr. Boss neurology note from 07/21/2020- for full review if this becomes issue on admission PT/OT evaluations placed (7) COPD (chronic obstructive pulmonary disease): Borderline with PFT's - Patient does not take her inhalers daily because they make her jittery, she takes them as she feels she needs them - 2lNC while sleeping at night - No immediate needs or concerns - Continue Roflumilast, Albuterol/ipratropium. (8) Rotator cuff tear: Follows with orthopaedics, receives steroid injections ~ 3 months, if she needs them - conservitive treatment - continue AROM while in house - PT/OT consult for hip as well (9) Iron (Fe) deficiency anemia: Hemoglobin here is 10.0 on admission, iron transferrin saturation is low at 15% and ferritin low at 20 She reports a long history of iron deficiency anemia We will need to clarify if she has had GI work-up With mild drop in hemoglobin postoperatively with hemoglobin of 9.4 Follow CBC Increase home ferrous sulfate 325 mg p.o. twice daily from once daily (10) B12 deficiency: B12 level here is borderline low at 358 Continue oral supplementation (11) Bipolar 1 disorder: Continue lamotrigine -Initially held Seroquel tonight for sedating effects - restart Seroquel 150 mg p.o. tonight (12) GERD (gastroesophageal reflux disease): Continue PPI (13) DVT prophylaxis: Aspirin 81 mg p.o. twice daily, SCDs Disposition-continued stay, will likely need rehab placement in the next 1 to 2 days Admission and Anticipated Discharge Date Admission Date: March 07, 2021 Subjective Patient having a lot of pain in the left hip and elevated blood pressures. She was working with PT and OT this morning is not a bed to chair for a little over 20 minutes and wants to get back in bed. Denies any chest pains or shortness of breath. She remains on her nasal cannula but usually only uses it at nighttime it just has not been removed yet this morning. She is 98% on a continuous pulse ox in the room. Andrews catheter is still in place She otherwise has no complaints. She is passing flatus but no bowel movement. Is eating. Review of Systems Review of Systems: All systems reviewed & are unremarkable except as noted in HPI & below Physical Exam Constitutional: WD/WN, vitals as above Eyes: + anicteric sclerae Neck: trachea midline, no thyromegaly Respiratory: normal respiratory effort, lungs clear to auscultation Cardiovascular: RRR, no murmur, no edema Chest (Breasts): Chest: normal inspection of chest Gastrointestinal (Abdomen): normal bowel sounds, soft, nontender, no hepatosplenomegaly Musculoskeletal: Extremities: + extremities abnormal to inspection (Left hip with dressing in place not removed), no cyanosis and no clubbing Skin: no rashes, warm and dry Neurologic: moves all extremities and awake; no focal motor deficits Psychiatric: A+Ox3, euthymic affect Genitourinary: Andrews catheter in place draining clear yellow urine Lymphatic: no lymphedema Results & Data Results & Data ([facility]) Vital Signs (Past 12 Hours) Vital Signs Temp Pulse Resp BP Pulse Ox 03/09/21 07:45 36.7 C 77 16 186/78 H 97 03/09/21 04:17 167/84 H 03/09/21 03:00 36.8 C 75 18 186/80 H 95 Laboratory Results 03/09/21 03/09/21 Range/Units 06:49 06:49 WBC 9.09 (4.8-10.8) K/uL RBC 3.24 L (4.2-5.4) M/uL Hgb 9.4 L (12.0-16.0) g/dL Hct 29.2 L (37-47) % MCV 90.1 (80-100) fL MCH 29.0 (25-34) pg MCHC 32.2 (32-36) g/dL RDW Std Deviation 47.6 H (36.4-46.3) fL RDW Coeff of Gino 14.3 (11.5-14.5) % Plt Count 202 (130-400) K/uL MPV 9.6 (7.4-10.4) fL Immature Gran % (Auto) 0.2 % Neut % (Auto) 78.2 % Lymph % (Auto) 9.5 % [place] % (Auto) 11.2 % Eos % (Auto) 0.7 % Baso % (Auto) 0.2 % Neut # (Auto) 7.11 H (1.4-6.5) K/uL Lymph # (Auto) 0.86 L (1.2-3.4) K/uL [place] # (Auto) 1.02 H (0.11-0.59) K/uL Eos # (Auto) 0.06 (0-0.5) K/uL Baso # (Auto) 0.02 (0-0.2) K/uL Immature Gran # (Auto) 0.02 (0.00-0.02) K/uL Sodium 137 (136-145) mmol/L Potassium 4.6 (3.5-5.1) mmol/L Chloride 106 (98-107) mmol/L Carbon Dioxide 28 (21-32) mmol/L Anion Gap 3.0 (3-11) BUN 16 (7-18) mg/dl Creatinine 1.15 (0.6-1.2) mg/dl Est Cr Clr Drug Dosing 38.8 ml/min Est GFR ( Amer) 52.8 Est GFR (Non-Af Amer) 45.5 BUN/Creatinine Ratio 13.7 (10-20) Glucose 102 H (70-99) mg/dl Calcium 8.6 (8.5-10.1) mg/dl Magnesium 2.0 (1.8-2.4) mg/dl PG Care Time/CCT Total # of Minutes Spent Total Time Spent with Patient: Total time spent is greater than 50% in coordination of care (as documented) at patient's floor/unit and/or counseling patient: Coding Level of Care Code 88242 Subseq Hosp Care Lvl 2 Diagnoses Fracture, intertrochanteric, left femur S72.145A Encounter type: initial encounter Fracture type: closed Fracture alignment: nondisplaced CAD (coronary artery disease) I25.10 Coronary Disease-Associated Artery/Lesion type: [place] artery [place] vs. transplanted heart: [place] heart Associated angina: without angina Hypertension I10 Hypertension type: essential hypertension Hyperlipidemia E78.5 Hyperlipidemia type: unspecified Hypothyroid E03.9 Hypothyroidism type: unspecified Proximal muscle weakness M62.81 COPD (chronic obstructive pulmonary disease) J44.9 COPD type: unspecified COPD Rotator cuff tear M75.100 Rotator cuff tear extent: unspecified tear extent Rotator cuff tear trauma status: traumatic Laterality: right Iron (Fe) deficiency anemia D50.9 Iron deficiency anemia type: unspecified iron deficiency B12 deficiency E53.8 Bipolar 1 disorder F31.9 GERD (gastroesophageal reflux disease) K21.9 DVT prophylaxis Z29.9 (1) Fracture, intertrochanteric, left femur Encounter type: initial encounter Fracture type: closed Fracture alignment: nondisplaced Qualified Code(s): S72.145A - Nondisplaced intertrochanteric fracture of left femur, initial encounter for closed fracture (2) CAD (coronary artery disease) Coronary Disease-Associated Artery/Lesion type: [place] artery [place] vs. transplanted heart: [place] heart Associated angina: without angina Qualified Code(s): I25.10 - Atherosclerotic heart disease of [place] coronary artery without angina pectoris (3) Hypertension Hypertension type: essential hypertension Qualified Code(s): I10 - Essential (primary) hypertension (4) Hyperlipidemia Hyperlipidemia type: unspecified Qualified Code(s): E78.5 - Hyperlipidemia, unspecified (5) Hypothyroid Hypothyroidism type: unspecified Qualified Code(s): E03.9 - Hypothyroidism, unspecified (6) COPD (chronic obstructive pulmonary disease) COPD type: unspecified COPD Qualified Code(s): J44.9 - Chronic obstructive pulmonary disease, unspecified (7) Rotator cuff tear Rotator cuff tear extent: unspecified tear extent Rotator cuff tear trauma status: traumatic Laterality: right (8) Iron (Fe) deficiency anemia Iron deficiency anemia type: unspecified iron deficiency Qualified Code(s): D50.9 - Iron deficiency anemia, unspecified
--- NOTE | 2021-03-09 15:15 | Progress Notes ---
DATE: 03/09/2021 SUBJECTIVE: A 80-year-old white female postop day 1 from IM nailing of a left reverse obliquity intertrochanteric fracture. She is doing pretty well. Having some moderate thigh pain, but improved. No chest pain or shortness of breath. Not feeling dizzy or lightheaded. OBJECTIVE: VITAL SIGNS: Temperature 36.7. Vital signs are stable. GENERAL: Shows a pleasant elderly female. She is sitting up in bed, looks reasonably comfortable. EXTREMITIES: Examination of left hip reveals the dressing to be clean, dry and intact. Leg is well aligned. She can dorsiflex and plantarflex her foot appropriately. She is neurologically intact. LABORATORY DATA: Hemoglobin 9.4. Hematocrit 29.2. Electrolytes are stable. ASSESSMENT: A 80-year-old white female postoperative day 1 from intramedullary nailing of a left reverse obliquity intertrochanteric hip fracture. Orthopedically, she is doing well. PLAN: 1. DVT prophylaxis including thigh-high TEDs, SCDs, and we would recommend a baby aspirin twice a day for 6 weeks. 2. PT/OT. She can weightbear as tolerated on this left lower extremity. 3. Pain control, doing okay with current pain regimen. 4. Medical management as per the medicine service. 5. Disposition: She is hoping to be discharged to [facility] for a rehab stay. Social service is working on this. She is orthopedically okay for discharge any time medically stable. I will need to see her back in 2-3 weeks out from surgery date.
[2021-03-09] MEDS: ACETAMINOPHEN 325 MG TAB PO PRN (18:04)
[2021-03-09] MEDS ORDERED: PROMETHAZINE HCL 6.25 MG in SODIUM CHLORIDE 0.9% 50 ML IV ONE (21:00)
[2021-03-09] MEDS: DOCUSATE SODIUM/SENNA 50/8.6MG TAB PO SCH (21:21)
[2021-03-09] MEDS: ROSUVASTATIN CALCIUM 10 MG TAB PO SCH (21:22)
[2021-03-09] MEDS: PANTOprazole 40 MG TAB PO SCH (21:22)
[2021-03-10] MEDS: oxyCODONE HCL IR 5 MG TAB (IMMEDIATE RELEASE) PO PRN ×3 (05:08→14:17)
[2021-03-10 07:56] LABS: Basophils # (auto) 0.01 K/uL (0-0.2); Basophils % (auto) 0.1 %; Eosinophils # (auto) 0.08 K/uL (0-0.5); Eosinophils % (auto) 0.9 %; Hemoglobin 9.2 g/dL (12.0-16.0); Immature Granulocytes # (auto) 0.02 K/uL (0.00-0.02); Immature Granulocytes % (auto) 0.2 %; Lymphocytes # (auto) 1.19 K/uL (1.2-3.4); Mean Corpuscular Hemoglobin 29.6 pg (25-34); Mean Corpuscular Hgb Conc 32.9 g/dL (32-36); Mean Platelet Volume 9.6 fL (7.4-10.4); Monocytes # (auto) 1.04 K/uL (0.11-0.59); Monocytes % (auto) 12.2 %; Neutrophils # (auto) 6.19 K/uL (1.4-6.5); Neutrophils % (auto) 72.6 %; Platelet Count 194 K/uL (130-400); RDW Coefficient of Variation 14.4 % (11.5-14.5); RDW Standard Deviation 46.9 fL (36.4-46.3); Red Blood Count 3.11 M/uL (4.2-5.4); White Blood Count 8.53 K/uL (4.8-10.8)
[2021-03-10] MEDS: HYDROmorphone INJ 0.5 MG/0.5 ML SYR IV PRN ×2 (08:14→19:46)
[2021-03-10 08:16] LABS: BUN Creatinine Ratio 16.8 (10-20); Calcium 8.9 mg/dl (8.5-10.1); Creatinine Clr Calc Pharmacy 42.1 ml/min; Est GFR (African American) 58.2; Est GFR (Non-African American) 50.3; Potassium 3.9 mmol/L (3.5-5.1)
[2021-03-10] MEDS: CYANOCOBALAMIN (VITAMIN B-12) 2,500 MCG TAB.SUBL SL SCH (08:23)
[2021-03-10] MEDS: ROFLUMILAST 500 MCG TAB PO SCH (08:24)
[2021-03-10] MEDS: ASPIRIN 81 MG ECTAB PO SCH ×2 (08:24→21:11)
[2021-03-10] MEDS: lamoTRIgine 100 MG TAB PO SCH (08:24)
[2021-03-10] MEDS: METOPROLOL TARTRATE 25 MG TAB PO SCH ×3 (08:24→21:11)
[2021-03-10] MEDS: CHOLECALCIFEROL 1,000 UNITS 25 MCG TAB PO SCH (08:24)
[2021-03-10] MEDS: FERROUS GLUCONATE 324 MG TAB PO SCH ×2 (08:24→17:28)
--- NOTE | 2021-03-10 09:21 | Progress Notes ---
DATE: 03/10/2021 SUBJECTIVE: A 80-year-old female postop day 2 from IM nailing of a left reverse obliquity intertrochanteric fracture. She is doing okay. Continues to have a moderate amount of hip pain. No other new complaints. No chest pain or shortness of breath. OBJECTIVE: VITAL SIGNS: Temperature 37.1. Vital signs stable. GENERAL: Shows a pleasant elderly female. She is lying in bed, looks reasonably comfortable this morning. EXTREMITIES: Examination of left hip and leg reveals the dressing to be clean, dry and intact. Leg is well aligned. Thigh is soft and supple. She can dorsiflex and plantarflex her foot appropriately. LABORATORY DATA: Pending. ASSESSMENT: A 80-year-old white female postop day 1 from IM nailing of a left reverse obliquity intertrochanteric fracture. She is doing okay, having moderate amount of pain, but nothing out of the ordinary. PLAN: 1. DVT prophylaxis including thigh-high TEDs, SCDs, and we would recommend a baby aspirin twice a day for 6 weeks. 2. PT/OT. She can fully weightbear on this left leg. 3. Pain control, doing okay with current pain regimen. 4. Medical management as per the medicine service. 5. Disposition: She is orthopedically okay for discharge any time. I need to see her back in 2-3 weeks from her surgery date. Any orthopedic questions can be directed to me at [phone].
[2021-03-10] MEDS: ACETAMINOPHEN 325 MG TAB PO PRN (09:45)
[2021-03-10] MEDS: ONDANSETRON INJ 2 MG/ML 2 ML VIAL IV PRN ×2 (13:26→19:45)
--- NOTE | 2021-03-10 13:30 | Hospitalist Progress Note ---
Date of Service March 10, 2021 Assessment & Plan (1) Fracture, intertrochanteric, left femur: Acute fracture secondary to mechanical fall- Orthopedics consulted-now status post ORIF on 03/[address] Lopez -Having pain control issues postoperatively but is out of bed and working with PT/OT -Continue pain control, bowel regimen to be increased today -advised to wean off IV pain control and oxycodone only and will add on scheduled tylenol having post-op nausea as well Hemoglobin with only slight drop down to 9.2 on postop day #2 Follow CBC and BMP again in the morning Appreciate orthopedic surgery consultation PT/OT consultations recommend rehab placement DVT prophylaxis with aspirin p.o. twice daily x 6 weeks and SCDs Orthopedically stable for discharge can weight bear on LLE (2) CAD (coronary artery disease): Multivessel CAD; RCA, LCX, LAD, Left main and ramus - cardiac caths 2001, 2006,- collateral flow- medical management recommended by her fish and game club manager Preoperative ECG here with sinus bradycardia without ischemia Not having any chest pain or acute issues -Continue aspirin 81 mg p.o. twice daily for DVT prophylaxis and then back to once daily after that -Takes nebivolol 5mg PO QAM at home but will replace here with formulary equivalent of metoprolol 25 mg p.o. which will was increased to 3 times daily for elevated blood pressure - Continue Rosuvastatin 10mg QHS - Intolerance to MARISA and ARB- cough/hives respectively (3) Hypertension: Baseline appears well controlled - significantly elevated here secondary to pain-now improved with increased dose of metoprolol and IV hydralazine x 1 -Continue pain control -Continue metoprolol 25 mg p.o. 3 times daily -Continue IV hydralazine as needed (4) Hyperlipidemia: As above, patient also with carotid plaques bilaterally but without significant stenosis - continue lipid management and BP control, aspirin (5) Hypothyroid: Was previously on levothyroxine and Cytomel - Followed by neurology for tremors, diplopia, and dysphagia- with proximal muscle weakness and gait instability and was seen by neurology several months ago and was advised to stop the levothyroxine in case it was contributing to this with thyrotoxicosis. Her tremors diplopia and dysphagia all did stop TSH here is mildly low at 0.04 with a normal free T4 -Recommend follow-up with PCP and consider endocrinology follow-up as an outpatient May need nuclear thyroid uptake scan as an outpatient (6) Proximal muscle weakness: Followed by neurology-thought to be related to thyrotoxicosis as above - See Dr. Boss neurology note from 07/21/2020- for full review if this becomes issue on admission PT/OT evaluations placed (7) COPD (chronic obstructive pulmonary disease): Borderline with PFT's - Patient does not take her inhalers daily because they make her jittery, she takes them as she feels she needs them - 2lNC while sleeping at night - No immediate needs or concerns - Continue Roflumilast, Albuterol/ipratropium. (8) Rotator cuff tear: Follows with orthopaedics, receives steroid injections ~ 3 months, if she needs them - conservitive treatment - continue AROM while in house - PT/OT consult for hip as well (9) Iron (Fe) deficiency anemia: Hemoglobin here is 10.0 on admission, iron transferrin saturation is low at 15% and ferritin low at 20 She reports a long history of iron deficiency anemia We will need to clarify if she has had GI work-up With mild drop in hemoglobin postoperatively with hemoglobin of 9.4 Follow CBC Increase home ferrous sulfate 325 mg p.o. twice daily from once daily (10) B12 deficiency: B12 level here is borderline low at 358 Continue oral supplementation (11) Bipolar 1 disorder: Continue lamotrigine -Initially held Seroquel tonight for sedating effects - restarted Seroquel 150 mg p.o. tonight (12) GERD (gastroesophageal reflux disease): Continue PPI (13) DVT prophylaxis: Aspirin 81 mg p.o. twice daily x 6 weeks, SCDs Disposition-continued stay for nausea, constipation, to [facility] hopefully tomorrow Admission and Anticipated Discharge Date Admission Date: March 07, 2021 Subjective Pt feeling very nauseated but has not vomited. Is holding the emesis bag when I walked in and was unable to eat her lunch. Denies abd pain. Has not moved her bowels in 3-4 days. Still having a lot of pain in hip. Seen by Ortho and cleared for discharge from their perspective Review of Systems Review of Systems: All systems reviewed & are unremarkable except as noted in HPI & below Denies CP or SOB Physical Exam Constitutional: WD/WN, vitals as above Eyes: + anicteric sclerae Neck: trachea midline, no thyromegaly Respiratory: normal respiratory effort, lungs clear to auscultation Cardiovascular: RRR, no murmur, no edema Chest (Breasts): Chest: normal inspection of chest Gastrointestinal (Abdomen): normal bowel sounds, soft, nontender, no hepatosplenomegaly Musculoskeletal: Extremities: + extremities abnormal to inspection (Left hip with dressing in place not removed), no cyanosis and no clubbing Skin: no rashes, warm and dry Neurologic: moves all extremities and awake; no focal motor deficits Psychiatric: A+Ox3, euthymic affect Lymphatic: no lymphedema Results & Data Results & Data ([facility]) Vital Signs (Past 12 Hours) Vital Signs Temp Pulse Resp BP Pulse Ox 03/10/21 08:41 96 03/10/21 08:20 20 88 L 03/10/21 07:24 37.1 C 82 16 152/70 H 95 Laboratory Results 03/10/21 03/10/21 03/10/21 Range/Units 12:52 12:52 07:41 WBC (4.8-10.8) K/uL RBC (4.2-5.4) M/uL Hgb (12.0-16.0) g/dL Hct (37-47) % MCV (80-100) fL MCH (25-34) pg MCHC (32-36) g/dL RDW Std Deviation (36.4-46.3) fL RDW Coeff of Gino (11.5-14.5) % Plt Count (130-400) K/uL MPV (7.4-10.4) fL Immature Gran % (Auto) % Neut % (Auto) % Lymph % (Auto) % [place] % (Auto) % Eos % (Auto) % Baso % (Auto) % Neut # (Auto) (1.4-6.5) K/uL Lymph # (Auto) (1.2-3.4) K/uL [place] # (Auto) (0.11-0.59) K/uL Eos # (Auto) (0-0.5) K/uL Baso # (Auto) (0-0.2) K/uL Immature Gran # (Auto) (0.00-0.02) K/uL Sodium 137 (136-145) mmol/L Potassium 3.9 D (3.5-5.1) mmol/L Chloride 105 (98-107) mmol/L Carbon Dioxide 25 (21-32) mmol/L Anion Gap 7.0 (3-11) BUN 18 (7-18) mg/dl Creatinine 1.06 (0.6-1.2) mg/dl Est Cr Clr Drug Dosing 42.1 ml/min Est GFR ( Amer) 58.2 Est GFR (Non-Af Amer) 50.3 BUN/Creatinine Ratio 16.8 (10-20) Glucose 82 (70-99) mg/dl Calcium 8.9 (8.5-10.1) mg/dl COVID-19 [facility] SARS-CoV-2, RNA, NAAT NEGATIVE (NEGATIVE) 03/10/21 Range/Units 07:41 WBC 8.53 (4.8-10.8) K/uL RBC 3.11 L (4.2-5.4) M/uL Hgb 9.2 L (12.0-16.0) g/dL Hct 28.0 L (37-47) % MCV 90.0 (80-100) fL MCH 29.6 (25-34) pg MCHC 32.9 (32-36) g/dL RDW Std Deviation 46.9 H (36.4-46.3) fL RDW Coeff of Gino 14.4 (11.5-14.5) % Plt Count 194 (130-400) K/uL MPV 9.6 (7.4-10.4) fL Immature Gran % (Auto) 0.2 % Neut % (Auto) 72.6 % Lymph % (Auto) 14.0 % [place] % (Auto) 12.2 % Eos % (Auto) 0.9 % Baso % (Auto) 0.1 % Neut # (Auto) 6.19 (1.4-6.5) K/uL Lymph # (Auto) 1.19 L (1.2-3.4) K/uL [place] # (Auto) 1.04 H (0.11-0.59) K/uL Eos # (Auto) 0.08 (0-0.5) K/uL Baso # (Auto) 0.01 (0-0.2) K/uL Immature Gran # (Auto) 0.02 (0.00-0.02) K/uL Sodium (136-145) mmol/L Potassium (3.5-5.1) mmol/L Chloride (98-107) mmol/L Carbon Dioxide (21-32) mmol/L Anion Gap (3-11) BUN (7-18) mg/dl Creatinine (0.6-1.2) mg/dl Est Cr Clr Drug Dosing ml/min Est GFR ( Amer) Est GFR (Non-Af Amer) BUN/Creatinine Ratio (10-20) Glucose (70-99) mg/dl Calcium (8.5-10.1) mg/dl COVID-19 Eval Order SARS-CoV-2, RNA, NAAT (NEGATIVE) PG Care Time/CCT Total # of Minutes Spent Total Time Spent with Patient: Total time spent is greater than 50% in coordination of care (as documented) at patient's floor/unit and/or counseling patient: Coding Level of Care Code 90042 Subseq Hosp Care Lvl 2 Diagnoses Fracture, intertrochanteric, left femur S72.145A Encounter type: initial encounter Fracture type: closed Fracture alignment: nondisplaced CAD (coronary artery disease) I25.10 Coronary Disease-Associated Artery/Lesion type: [place] artery [place] vs. transplanted heart: [place] heart Associated angina: without angina Hypertension I10 Hypertension type: essential hypertension Hyperlipidemia E78.5 Hyperlipidemia type: unspecified Hypothyroid E03.9 Hypothyroidism type: unspecified Proximal muscle weakness M62.81 COPD (chronic obstructive pulmonary disease) J44.9 COPD type: unspecified COPD Rotator cuff tear M75.100 Rotator cuff tear extent: unspecified tear extent Rotator cuff tear trauma status: traumatic Laterality: right Iron (Fe) deficiency anemia D50.9 Iron deficiency anemia type: unspecified iron deficiency B12 deficiency E53.8 Bipolar 1 disorder F31.9 GERD (gastroesophageal reflux disease) K21.9 DVT prophylaxis Z29.9 (1) Fracture, intertrochanteric, left femur Encounter type: initial encounter Fracture type: closed Fracture alignment: nondisplaced Qualified Code(s): S72.145A - Nondisplaced intertrochanteric fracture of left femur, initial encounter for closed fracture (2) CAD (coronary artery disease) Coronary Disease-Associated Artery/Lesion type: [place] artery [place] vs. [place] heart: [place] heart Associated angina: without angina Qualified Code(s): I25.10 - Atherosclerotic heart disease of [place] coronary artery without angina pectoris (3) Hypertension Hypertension type: essential hypertension Qualified Code(s): I10 - Essential (primary) hypertension (4) Hyperlipidemia Hyperlipidemia type: unspecified Qualified Code(s): E78.5 - Hyperlipidemia, unspecified (5) Hypothyroid Hypothyroidism type: unspecified Qualified Code(s): E03.9 - Hypothyroidism, unspecified (6) COPD (chronic obstructive pulmonary disease) COPD type: unspecified COPD Qualified Code(s): J44.9 - Chronic obstructive pulmonary disease, unspecified (7) Rotator cuff tear Rotator cuff tear extent: unspecified tear extent Rotator cuff tear trauma status: traumatic Laterality: right (8) Iron (Fe) deficiency anemia Iron deficiency anemia type: unspecified iron deficiency Qualified Code(s): D50.9 - Iron deficiency anemia, unspecified
[2021-03-10] MEDS: ACETAMINOPHEN 500 MG TAB PO SCH ×2 (14:14→21:12)
[2021-03-10] MEDS: DOCUSATE SODIUM/SENNA 50/8.6MG TAB PO SCH (21:11)
[2021-03-10] MEDS: PANTOprazole 40 MG TAB PO SCH (21:12)
[2021-03-10] MEDS: ROSUVASTATIN CALCIUM 10 MG TAB PO SCH (21:12)
[2021-03-11] MEDS: oxyCODONE HCL IR 5 MG TAB (IMMEDIATE RELEASE) PO PRN (03:55)
[2021-03-11] MEDS: HYDROmorphone INJ 0.5 MG/0.5 ML SYR IV PRN ×2 (04:17→07:13)
[2021-03-11] MEDS: ONDANSETRON INJ 2 MG/ML 2 ML VIAL IV PRN (04:22)
[2021-03-11] MEDS: ACETAMINOPHEN 500 MG TAB PO SCH (05:06)
[2021-03-11 06:45] LABS: Basophils # (auto) 0.02 K/uL (0-0.2); Basophils % (auto) 0.3 %; Eosinophils # (auto) 0.16 K/uL (0-0.5); Eosinophils % (auto) 2.3 %; Hematocrit (blood only) 25.4 % (37-47); Hemoglobin 8.2 g/dL (12.0-16.0); Immature Granulocytes # (auto) 0.01 K/uL (0.00-0.02); Immature Granulocytes % (auto) 0.1 %; Lymphocytes # (auto) 1.22 K/uL (1.2-3.4); Lymphocytes % (auto) 17.8 %; Mean Corpuscular Hemoglobin 29.1 pg (25-34); Mean Corpuscular Hgb Conc 32.3 g/dL (32-36); Mean Corpuscular Volume 90.1 fL (80-100); Mean Platelet Volume 9.9 fL (7.4-10.4); Monocytes # (auto) 0.76 K/uL (0.11-0.59); Monocytes % (auto) 11.1 %; Neutrophils % (auto) 68.4 %; Platelet Count 215 K/uL (130-400); RDW Coefficient of Variation 14.5 % (11.5-14.5); RDW Standard Deviation 47.8 fL (36.4-46.3); Red Blood Count 2.82 M/uL (4.2-5.4); White Blood Count 6.87 K/uL (4.8-10.8)
[2021-03-11 07:14] LABS: BUN Creatinine Ratio 17.2 (10-20); Calcium 8.7 mg/dl (8.5-10.1); Creatinine Clr Calc Pharmacy 40.9 ml/min; Est GFR (African American) 56.3; Est GFR (Non-African American) 48.6
[2021-03-11] MEDS: ASPIRIN 81 MG ECTAB PO SCH (08:52)
[2021-03-11] MEDS: lamoTRIgine 100 MG TAB PO SCH (08:53)
[2021-03-11] MEDS: METOPROLOL TARTRATE 25 MG TAB PO SCH (08:53)
[2021-03-11] MEDS: CYANOCOBALAMIN (VITAMIN B-12) 2,500 MCG TAB.SUBL SL SCH (08:55)
[2021-03-11] MEDS: FERROUS GLUCONATE 324 MG TAB PO SCH (08:55)
[2021-03-11] MEDS: CHOLECALCIFEROL 1,000 UNITS 25 MCG TAB PO SCH (08:56)
[2021-03-11] MEDS: ROFLUMILAST 500 MCG TAB PO SCH (08:57)
--- NOTE | 2021-03-11 09:32 | Progress Notes ---
DATE: 03/11/2021 SUBJECTIVE: A 80-year-old white female postop day 3 from IM nailing of a left reverse obliquity intertrochanteric fracture. She is doing okay. Complains of quite a bit of hip pain with some motion. Really not much pain lying in bed. No chest pain or shortness of breath. Not feeling dizzy or lightheaded. OBJECTIVE: VITAL SIGNS: Temperature is 36.4. Vital signs are stable. GENERAL: Shows a pleasant elderly female. She is lying in bed, looks pretty comfortable this morning. EXTREMITIES: Examination of the left hip reveals the leg to be well aligned. Leg lengths are equal. Dressing is clean, dry and intact. Thigh is soft and supple. Mild swelling. She can dorsiflex and plantarflex her foot appropriately. LABORATORY DATA: Hemoglobin 8.2. Hematocrit 25.4. Electrolytes are stable. ASSESSMENT: A 80-year-old white female postoperative day 3 from intramedullary nailing of left intertrochanteric fracture, doing okay. Hemoglobin is a bit low, but asymptomatic. She is neurologically intact. PLAN: 1. DVT prophylaxis including thigh-high TEDs, SCDs, and baby aspirin twice a day. 2. PT/OT. Weight bear as tolerated in the left lower extremity. 3. Pain control. Continue current pain regimen. We need to try and limit narcotics to some degree to avoid side effects. First 2 weeks are likely painful and will likely need some degree of narcotic pain medicines. 4. Medical management as per the medicine service. 5. Anemia. She is currently anemic, but asymptomatic. I would recommend holding on any blood transfusion at this time unless the patient becomes symptomatic. Continue to follow H and H. 6. Disposition: She is orthopedically okay for discharge any time. I need to see her back in 2-3 weeks out from surgery date. Any orthopedic questions can be directed to me at [phone].
--- NOTE | 2021-03-11 10:53 | Discharge Summary ---
Date of Service March 11, 2021 Admission HPI Per Admitting Provider 80 YOF with past medical history of CAD, HTN, HLD, Breast CA (radiation treatment only), lumpectomy, Anemia, CKD III, COPD, myopathy/tremors and right rotator cuff injury that she sustained from a fall about a year ago, bipolar. Patient was out shopping today and was returning to her car, where she was stepping off a high curb to get into her car, her foot slipped off the curb and she fell directly on her hip. Two persons were able to immediately come to her assistance and call for EMS. She denies any other trauma or injury. She was brought to [facility]. She was noted to have a left intratrochanteric proximal femur fracture with medial displacement. She was given Fentanyl and Tylenol for pain control and the hospitalist team was notified for admission. Patient is pleasantly awake, she describes her pain as sharp stabbing pain that goes from left hip to knee. This is obviously aggravated with movement, it is associated with some numbness that ends ~3 inches above the knee. She has full sensation and movement distally. There is no internal or external rotation of the leg. Patient will be admitted, pain control, NPO after midnight, and Orthopaedics consult will be placed. Principal Diagnosis Left hip fracture Discharge Exam Constitutional WD/WN, vitals as above Eyes + anicteric sclerae Neck trachea midline, no thyromegaly Respiratory normal respiratory effort, lungs clear to auscultation Cardiovascular RRR, no murmur, no edema Chest (Breasts) Chest: normal inspection of chest Gastrointestinal (Abdomen) normal bowel sounds, soft, nontender, no hepatosplenomegaly Musculoskeletal Extremities: no cyanosis and no clubbing Skin no rashes, warm and dry Neurologic moves all extremities and awake; no focal motor deficits Psychiatric A+Ox3, euthymic affect Lymphatic no lymphedema Discharge Data Allergies Allergy/AdvReac Type Severity Reaction Status Date / Time metoclopramide Allergy Intermediate ESSENTIAL Verified 03/07/21 17:12 TREMORS clopidogrel Allergy Mild HIVES Verified 03/07/21 17:12 diazepam Allergy Mild DEPRESSION Verified 03/07/21 17:12 diltiazem Allergy Mild Light Verified 03/07/21 17:12 headed erythromycin base Allergy Mild EES, TAKES Verified 03/07/21 17:12 Z-PACKS W/O RXN gabapentin Allergy Mild States Verified 03/07/21 17:12 hands catch fire latex Allergy Mild rips skin Verified 03/07/21 17:12 off lisinopril Allergy Mild COUGH Verified 03/07/21 17:12 losartan Allergy Mild HIVES Verified 03/07/21 17:12 micafungin Allergy Mild rash Verified 03/07/21 17:12 oxycodone Allergy Mild INC. Verified 03/07/21 17:12 DEPRESSION Penicillins Allergy Mild Diarrhea Verified 03/07/21 17:12 promethazine Allergy Mild TROUBLE Verified 03/07/21 17:12 FOCUSING SPEAKING AT HIGHER DOSES Sulfa (Sulfonamide Allergy Mild SKIN Verified 03/07/21 17:12 Antibiotics) BECOMES PHOTOSENSITIVE AND BECOMES RED bupropion Allergy Unknown unknown Verified 03/07/21 17:12 dicyclomine Allergy Unknown Unknown Verified 03/07/21 17:12 potassium chloride Allergy Unknown Unknown Verified 03/07/21 17:12 sucralfate Allergy Unknown Unknown Verified 03/07/21 17:12 Ijdruob-Uvw-Rvj Reductase AdvReac Intermediate Diarrhea Verified 03/07/21 21:01 Inhibitor amoxicillin AdvReac Mild DIARRHEA Verified 03/07/21 17:12 clavulanic acid AdvReac Mild DIARRHEA Verified 03/07/21 17:12 hydrocodone AdvReac Mild "dont like Verified 03/07/21 17:12 how it makes me feel" Consultations 03/07/21 17:54 ED Decision to Admit Stat 03/07/21 18:02 Consult Orthopedic Surgery Stat 03/07/21 20:55 Consult Anesthesiology Routine Consult Orthopedic Surgery Routine Procedures Performed Operation Date: 03/08/21 10:15 Actual Procedures p Trochanteric Nail Long Left(Left) - Kevon Lopez MD Ordered Studies 03/08/21 14:00 FL hip LT 2-3V Routine Chest X-Ray 03/07/21 16:24 XR chest 1V portable HISTORY: fall COMPARISON: 02/06/2018. FINDINGS: Cardiac silhouette remains mildly enlarged. There is a mildly tortuous thoracic aorta, unchanged. No new focal lung consolidations to suggest pneumonia. No evidence for pulmonary edema. No pleural effusions. No pneu mothorax. Retrocardiac density favors a small hiatus hernia. IMPRESSION: No acute process. ACT 112: Negative or not required by law. Electronically signed by: Kavon Yi M.D. 03/07/2021 5:55 PM Femur X-Ray 03/07/21 16:24 XR femur LT 2V routine, XR pelvis 1-2V routine CLINICAL HISTORY: fall. Left hip pain. COMPARISON STUDY: None. FINDINGS: No fracture or dislocation within the pelvis, right hip, or distal left femur. There is a mildly displaced intertrochanteric fracture within the proximal left femur. This demonstrates up to 1.3 cm of medial displacement. No dislocation. The bones are osteopenic. IMPRESSION: Mildly displaced intertrochanteric fracture within the proximal left femur. ACT 112: Negative or not required by law. Electronically signed by: Kavon Yi M.D. 03/07/2021 5:56 PM Pelvis X-Ray 03/07/21 16:24 XR femur LT 2V routine, XR pelvis 1-2V routine CLINICAL HISTORY: fall. Left hip pain. COMPARISON STUDY: None. FINDINGS: No fracture or dislocation within the pelvis, right hip, or distal left femur. There is a mildly displaced intertrochanteric fracture within the proximal left femur. This demonstrates up to 1.3 cm of medial displacement. No dislocation. The bones are osteopenic. IMPRESSION: Mildly displaced intertrochanteric fracture within the proximal left femur. ACT 112: Negative or not required by law. Electronically signed by: Kavon Yi M.D. 03/07/2021 5:56 PM Hip X-Ray 03/08/21 14:00 FL hip LT 2-3V CLINICAL HISTORY: LT LONG TROCH NAIL COMPARISON STUDY: Left femur radiographs March 07, 2021. FLUOROSCOPY TIME: 81 seconds. FLUOROSCOPIC IMAGES: 4 FINDINGS: Fluoroscopy was provided during internal fixation of the intertrochanteric fracture of the left femur with trochanteric nail. Fracture alignment has improved and appears near anatomic. Hardware is intact. There are no unexpected radiopaque foreign bodies. There is a distal screw. IMPRESSION: Fluoroscopy provided during internal fixation of the intertrochanteric fracture of the left femur. ACT 112: Negative or not required by law. Electronically signed by: Wes Lui M.D. 03/08/2021 3:20 PM Hospital Course (1) Fracture, intertrochanteric, left femur: Acute fracture secondary to mechanical fall- Orthopedics consulted-now status post ORIF on 03/[address] Lopez -Having pain control issues postoperatively but is out of bed and working with PT/OT -Continue pain control, bowel regimen -post-op nausea resolved Hemoglobin with drop down to 8.2 on postop day #3 Follow CBC in 1-2 weeks Appreciate orthopedic surgery consultation PT/OT consultations recommend rehab placement DVT prophylaxis with aspirin p.o. twice daily x 6 weeks and SCDs Orthopedically stable for discharge can weight bear on LLE continue home Lyrica (2) CAD (coronary artery disease): Multivessel CAD; RCA, LCX, LAD, Left main and ramus - cardiac caths 2001, 2006,- collateral flow- medical management recommended by her editorial cartoonist Preoperative ECG here with sinus bradycardia without ischemia Not having any chest pain or acute issues -Continue aspirin 81 mg p.o. twice daily for DVT prophylaxis and then back to once daily after that -Takes nebivolol 5mg PO QAM at home which was replaced here with formulary equivalent of metoprolol 25 mg p.o. 3 times daily for elevated blood pressure -home amlodipine noted to be omitted from home med rec on day of discharge-this was discontinued in favor of an increased dose of nebivolol 10mg daily - Continue Rosuvastatin 10mg QHS - Intolerance to MARISA and ARB- cough/hives respectively (3) Hypertension: Baseline appears well controlled - significantly elevated here secondary to pain-now improved with increased dose of metoprolol and IV hydralazine x 1 -will go back on Bystolic from home on discharge but increase dose to 10mg daily -Continue pain control (4) Hyperlipidemia: As above, patient also with carotid plaques bilaterally but without significant stenosis - continue lipid management and BP control, aspirin (5) Hypothyroid: Was previously on levothyroxine and Cytomel - Followed by neurology for tremors, diplopia, and dysphagia- with proximal muscle weakness and gait instability and was seen by neurology several months ago and was advised to stop the levothyroxine in case it was contributing to this with thyrotoxicosis. Her tremors diplopia and dysphagia all did stop TSH here still is mildly low at 0.04 with a normal free T4 despite being off of her meds for many months -Recommend follow-up with PCP and consider endocrinology follow-up as an outpatient May need nuclear thyroid uptake scan as an outpatient (6) Proximal muscle weakness: Followed by neurology-thought to be related to thyrotoxicosis as above - See Dr. Boss neurology note from 07/21/2020- for full review if this becomes issue on admission PT/OT evaluations placed (7) COPD (chronic obstructive pulmonary disease): Borderline with PFT's - Patient does not take her inhalers daily because they make her jittery, she takes them as she feels she needs them - 2lNC while sleeping at night to be continued - No immediate needs or concerns - Continue Roflumilast, Albuterol/ipratropium. (8) Rotator cuff tear: Follows with orthopaedics, receives steroid injections ~ 3 months, if she needs them - conservitive treatment - continue AROM while in house - PT/OT consult for hip as well (9) Iron (Fe) deficiency anemia: Hemoglobin here is 10.0 on admission, iron transferrin saturation is low at 15% and ferritin low at 20 She reports a long history of iron deficiency anemia We will need to clarify if she has had GI work-up with PCP as an outpt With mild drop in hemoglobin postoperatively with hemoglobin of 8.2 Follow CBC as outpt Increased home ferrous sulfate 325 mg p.o. twice daily from once daily (10) B12 deficiency: B12 level here is borderline low at 358 Continue oral supplementation (11) Bipolar 1 disorder: Continue lamotrigine -Initially held Seroquel tonight for sedating effects - restarted Seroquel 150 mg p.o. hs (12) GERD (gastroesophageal reflux disease): Continue PPI (13) DVT prophylaxis: Aspirin 81 mg p.o. twice daily x 6 weeks, SCDs Disposition-[facility] to [facility] today Total Time Total Time Spent Total Time Spent (In Minutes): 35 min Total Time Includes: Examination of the Patient, Discharge Planning and Medication Reconciliation Discharge Plan Discharge Items Patient Disposition: Transfer Senior Living Fac Reason For Visit: PROXIMAL INTERTROCHANTERIC FRACTURE Discharge Diagnosis: IM Nailing of Left Intertrochanteric Femur Fracture Condition on Discharge: Fair Activity: Per Instructions section Activity Comment: Weightbear and activity as tolerated. Weightbearing: Full weightbearing Weightbearing Comment: May fully weightbear as tolerated Non-emergency contact: Primary Care Provider and Surgeon Call non-emergency contact if: you have any medication questions, your symptoms worsen, your pain is not controlled and you have a fever Follow-up/Referrals: Kevon Lopez MD [Physician] - (Orthopedic follow-up 2-3 weeks from surgery date.) Abiel Clark MD [Primary Care Provider] - Diet: Heart Healthy Addtl Attending Provider Instructions: You were admitted for a fall which resulted in a left hip fracture. This was repaired by Orthopedic surgery. Please continue with an aggressive bowel regimen as you were having issues with constipation from opioids. You should take scheduled tylenol for pain and oxycodone as needed for pain. Take aspirin twice a day for prevention of blood clots in the legs. Follow up with Orthopedics after discharge in 2-3 weeks. Your blood pressure was high from pain and your blood pressure medication was increased in the dose. Continue on your usual 2LNC of oxygen at nighttime. Pending Studies at Discharge: No Stand-Alone Forms: My [facility] Skilled Items Patient informed of condition?: Yes DNR: No Discharge Level of Care: Skilled Communicable Disease: No Discharge Prognosis: Improving Lines: None Urinary Catheter: No Medications and DC Order Prescriptions: New ferrous gluconate 324 mg (38 mg iron) Tablet 324 mg PO BIDM Qty: 60 RF: 0 aspirin 81 mg Tablet,Delayed Release (Dr/Ec) 81 mg PO BID 39 Days Qty: 78 RF: 0 acetaminophen 500 mg Tablet 1,000 mg PO Q8 Qty: 180 RF: 0 oxycodone 5 mg Tablet 5 - 10 mg PO Q6 PRN (Reason: pain) Qty: 10 RF: 0 sennosides-docusate sodium [Senokot-S] 8.6-50 mg Tablet 2 tab PO HS Qty: 60 RF: 0 bisacodyl 10 mg Suppository 10 mg SC DAILY PRN (Reason: constipation) Qty: 3 RF: 0 polyethylene glycol 3350 [Miralax] 17 gram/dose powder 17 g PO DAILY Qty: 119 RF: 0 Bystolic 10 mg tablet 10 mg PO DAILY Qty: 30 RF: 0 ondansetron HCl [Zofran] 4 mg tablet 4 mg PO Q8H PRN (Reason: nausea and vomiting) Qty: 6 RF: 0 Continued (DME) Oxygen Home Liters Per Minute See Rx Instructions .ROUTE .MEDSUPPLY Qty: 1 RF: 0 rosuvastatin 10 mg tablet 10 mg PO HS RF: 0 cholecalciferol (vitamin D3) 25 mcg (1,000 unit) capsule 25 mcg PO DAILY RF: 0 cyanocobalamin (vitamin B-12) 5,000 mcg capsule 5,000 mcg PO DAILY RF: 0 lamotrigine 150 mg tablet 150 mg PO QAM RF: 0 nitroglycerin [Nitrostat] 0.4 mg Tablet, Sublingual 0.4 mg Sublingual UD PRN (Reason: Angina) RF: 0 quetiapine 150 mg tablet extended release 24 hr 150 mg PO HS RF: 0 dexlansoprazole 60 mg capsule,biphase delayed releas 60 mg PO HS RF: 0 roflumilast 500 mcg tablet 500 mcg PO QAM RF: 0 Combivent Respimat 20-100 mcg/actuation mist 2 puff INHALATION Q6H PRN (Reason: Shortness Of Breath) RF: 0 pregabalin 75 mg capsule 75 mg PO HS Qty: 30 RF: 0 Discontinued aspirin [Adult Low Dose Aspirin] 81 mg tablet,delayed release (DR/EC) 81 mg PO DAILY Qty: 90 RF: 3 nebivolol 5 mg tablet 5 mg PO QAM RF: 0 ferrous gluconate 236 mg (27 mg iron) Tablet 236 mg PO QAM RF: 0 Discharge Orders: Discharge Order (Routine); Ordered 03/11/21 Ordered By: Dana Slaughter Admission Data Admit Date/Time: 03/07/21 20:07 Attending Provider: Dana Slaughter Admit Provider: Aly Rodrigues Primary Care Provider: Abiel Clark Other Providers: Silvio Cornejo at [place] ; Aly Rodrigues ; Pranav Douglas ; Taylor Singer ; Radha Trivedi ; Tita Cruz ; Jennifer Johns ; Radhika Pollard ; Junie Arias ; Titi Garces ; Jona Strauss ; Lalo Ibanez ; Kavon Thakkar ; Allegra Thakkar ; Lisandro Webber ; Etelvina Penaloza ; Diogo Chawla ; Arsalan Espinoza ; Yoni Cruz ; Farhan Knight ; Gena Samuel ; Jeff Garcia ; Marivel Bingham ; Graciela Garcia ; Jamil Serra ; Destini Hunt ; John Pereira ; Bree Phillips ; Lisette Lopez ; Destini Perez ; Jolie Gould ; Mundo Salazar ; [place] ; [place] ; Angelique Vitale ; Lilly Vasquez ; Jimy Vasquez V ; Saad Baker ; Tita Hurley ; Louis Jovel ; Catracho Cabral ; Rosana Romo ; Amisha Diggs ; Jimy Mendoza ; Osman Samuel ; Chago Bourgeois ; Marj Wake[place] ; Angelique Gilman ; Kevon Sweeney ; [place] Knight ; Altagracia Payne ; Guy Beck ; Abbey Blood ; Jason Geronimo ; Dominik Bhatt ; Lisandro Robledo Other Interventions: Discharge Summary Assessment (RN) Last Done: 03/11/21 11:03 Coding Level of Care Code D/C Day Management >30 mins Diagnoses Fracture, intertrochanteric, left femur S72.145A Encounter type: initial encounter Fracture alignment: nondisplaced Fracture type: closed CAD (coronary artery disease) I25.10 Associated angina: without angina Coronary Disease-Associated Artery/Lesion type: [place] artery [place] vs. transplanted heart: [place] heart Hypertension I10 Hypertension type: essential hypertension Hyperlipidemia E78.5 Hyperlipidemia type: unspecified Hypothyroid E03.9 Hypothyroidism type: unspecified Proximal muscle weakness M62.81 COPD (chronic obstructive pulmonary disease) J44.9 COPD type: unspecified COPD Rotator cuff tear M75.100 Laterality: right Rotator cuff tear extent: unspecified tear extent Rotator cuff tear trauma status: traumatic Iron (Fe) deficiency anemia D50.9 Iron deficiency anemia type: unspecified iron deficiency B12 deficiency E53.8 Bipolar 1 disorder F31.9 GERD (gastroesophageal reflux disease) K21.9 DVT prophylaxis Z29.9
--- NOTE | 2021-03-22 14:04 | Coding Query ---
To promote full compliance with coding requirements relating to patient care, provider participation is requested in all cases of video news editor uncertainty. Please assist us with the question(s) below: Coding Question(s): The diagnosis below was documented in the Addendum on Progress Note 03/09/21, then subsequently fell off all further documentation. Please indicate if it is still a possible diagnosis or ruled out. Physician's Response(s): ACUTE KIDNEY INJURY (documented on 03/09/21 Progress Note addendum) ( x ) Diagnosed and POA ( ) Diagnosed and not POA ( ) Ruled out ( ) Other (please specify) MTDD
== END 2021-03-11 12:32 | DRG 481 ==
LOC: ED 16:11 → 3N 20:07 → SUATTDRO 20:07 → 3N 20:40

== ENCOUNTER 2021-03-31 15:24 | Observation (INO) ==
[2021-03-31] MEDS ORDERED: SODIUM CHLORIDE 0.9% 1000ML 1,000 ML IV ONE (16:12)
[2021-03-31] MEDS ORDERED: ONDANSETRON INJ 2 MG/ML 2 ML VIAL IV STA (16:12)
[2021-03-31] MEDS ORDERED: FAMOTIDINE 20MG IV PUSH 20 MG/5 ML SYR IV STA (16:12)
[2021-03-31 16:38] LABS: Basophils # (auto) 0.02 K/uL (0-0.2); Basophils % (auto) 0.3 %; Eosinophils # (auto) 0.12 K/uL (0-0.5); Eosinophils % (auto) 1.9 %; Hematocrit (blood only) 27.7 % (37-47); Hemoglobin 8.5 g/dL (12.0-16.0); Immature Granulocytes # (auto) 0.02 K/uL (0.00-0.02); Immature Granulocytes % (auto) 0.3 %; Lymphocytes # (auto) 1.32 K/uL (1.2-3.4); Lymphocytes % (auto) 21.1 %; Mean Corpuscular Hemoglobin 30.4 pg (25-34); Mean Corpuscular Hgb Conc 30.7 g/dL (32-36); Mean Corpuscular Volume 98.9 fL (80-100); Mean Platelet Volume 9.3 fL (7.4-10.4); Monocytes # (auto) 0.77 K/uL (0.11-0.59); Monocytes % (auto) 12.3 %; Neutrophils # (auto) 4.02 K/uL (1.4-6.5); Neutrophils % (auto) 64.1 %; Platelet Count 301 K/uL (130-400); RDW Coefficient of Variation 18.6 % (11.5-14.5); RDW Standard Deviation 65.3 fL (36.4-46.3); White Blood Count 6.27 K/uL (4.8-10.8)
--- NOTE | 2021-03-31 16:38 | XRay Report ---
XR chest 1V portable CLINICAL HISTORY: Chest Pain COMPARISON STUDY: Chest CT August 15, 2018. Chest radiograph March 07, 2021. FINDINGS: Lung volumes are normal. There is no pneumothorax or pleural effusion. There is no evidence for pulmonary edema. Cardiomediastinal silhouette is stable. Underlying emphysema is better depicted on prior chest CT. Subtle lower lung interstitial thickening is likely chronic. IMPRESSION: No acute cardiopulmonary findings. ACT 112: Negative or not required by law. Electronically signed by: Wes Lui M.D. 03/31/2021 4:37 PM
[2021-03-31 17:04] LABS: Alanine Aminotransferase 13 U/L (12-78); Albumin Level 2.9 gm/dl (3.4-5.0); Aspartate Aminotransferase 12 U/L (15-37); BUN Creatinine Ratio 17.8 (10-20); Bilirubin Direct 0.2 mg/dl (0-0.2); Blood Urea Nitrogen 18 mg/dl (7-18); Calcium 9.5 mg/dl (8.5-10.1); Carbon Dioxide 25 mmol/L (21-32); Chloride 109 mmol/L (98-107); Creatinine Clr Calc Pharmacy 42.1 ml/min; Est GFR (African American) 62.5 ml/min; Est GFR (Non-African American) 53.9 ml/min; Glucose 88 mg/dl (70-99); Lipase 90 U/L (73-393); Sodium 142 mmol/L (136-145)
[2021-03-31 17:07] LABS: Albumin Globulin Ratio 0.8 (0.9-2); Alkaline Phosphatase 121 U/L (45-117); Bilirubin,Total 0.5 mg/dl (0.2-1); Creatine Kinase 45 U/L (26-192); Globulin 3.9 gm/dl (2.5-4.0); Phosphorus 3.5 mg/dl (2.5-4.9); Total Protein 6.8 gm/dl (6.4-8.2); Troponin I < 0.015 ng/ml (0-0.045)
[2021-03-31] MEDS ORDERED: OPTIRAY 300 100mL IV ONE (17:35)
--- NOTE | 2021-03-31 18:01 | CT Scan Report ---
CT OF THE ABDOMEN AND PELVIS WITH CONTRAST CLINICAL HISTORY: Nausea, vomiting, black diarrhea . COMPARISON STUDY: CT of the abdomen and pelvis January 01, 2019. TECHNIQUE: Following IV administration of 83 mL of Optiray, axial images of the abdomen and pelvis we re obtained from the lung bases to the proximal femurs. Images were reviewed in the axial, sagittal, and coronal planes. IV contrast was administered without complication. Automated exposure control wa s utilized for the study. A dose lowering technique was utilized adhering to the principles of ALARA . CT DOSE: 509.34 mGy.cm FINDINGS: Lung bases are unremarkable. A small hiatal hernia is noted. Hepatic steatosis is noted. Th ere are no hepatic lesions. Borderline splenomegaly is noted. Biliary ductal dilatation is unchanged since prior CT. This is likely related to cholecystectomy. Mild pancreatic ductal dilatation is also unchanged. There is no peripancreatic infiltration. A left renal cyst is present. There is no hydrone phrosis. Subcentimeter right renal lesion is too small to characterize. The appendix is normal. Sigmo id diverticulosis is noted without evidence for acute diverticulitis. Injection sites are noted withi n the subcutaneous tissues. Internal fixation of the intertrochanteric fracture of the left femur is partially imaged. Moderate to extensive atherosclerotic plaque is noted within the major vessels. IMPRESSION: 1. No acute process within the abdomen or pelvis. 2. Sigmoid diverticulosis. No evidence for acute diverticulitis. No bowel wall thickening. Normal agus endix. 3. Small hiatal hernia. ACT 112: Negative or not required by law. Electronically signed by: Wes Lui M.D. 03/31/2021 5:59 PM
[2021-03-31] MEDS ORDERED: PANTOprazole 40 MG in SYRINGE 0 ML IV ONE (19:01)
[2021-03-31] MEDS ORDERED: PROCHLORPERAZINE 1 ML IV ONE (19:03)
[2021-03-31 19:27] LABS: INR 3.6 (0.9-1.1); Prothrombin Time 33.3 Seconds (9.0-12.0)
--- NOTE | 2021-03-31 19:53 | Emergency Department Note ---
Impression & Plan Gastroenteritis, Iron (Fe) deficiency anemia, Heme + stool, Supratherapeutic INR ED Provider Note NAME: NELLIE ANDERSON AGE: 80 SEX: F ARRIVES VIA: Ambulance INFORMANT: Patient, ED PROVIDER(S): Nestor Beal MD CHIEF COMPLAINT: Nausea, vomiting, diarrhea PLAN: Disposition: Admit MEDICAL DECISION MAKING: The patient is a pleasant 80-year-old woman with a past medical history of CAD, COPD, sleep apnea, bipolar disorder, hypertension, hyperlipidemia, hypothyroidism, iron deficiency anemia, myasthenia gravis who presents to the em ergency department for evaluation of persistent nausea and vomiting with frequent diarrhea beginning last night which she describes as watery black but in the setting of being on iron supplements. Patient symptoms occur in the setting of being discharged from [facility] yesterday after admission following left hip intertrochanteric nail on 03/08. The patient denies having any of the symptoms when she left [facility]. She is unaware of being on any antibiotics. She reports she was on Coumadin prophylactically following her surgery but stopped taking it the day of her discharge. She had also been on Lovenox following her surgery. On arrival the patient is fatigued and uncomfortable but no acute distress, afebrile with stable vital signs. She has generalized abdominal discomfort without discrete tenderness. EKG without overt acute ischemia. CXR negative for acute cardiopulmonary process. WBC and platelets wnl. H/H similar to prior value. INR 3.6. Chemistry without acidosis. Electrolytes unremarkable. LFTs without significant abnormality. Troponin negative/undetectable. Lipase wnl. CT abd/pelvis negative for acute process. Upon re-evaluation the patient did report some improvement but still with residual nausea and she did have large watery bowel movement, which dark/black in color. Hemoccult was positive however unclear if true melena given patient reports taking iron. Patient given protonix for possibility of Upper GIB. Cdiff negative. Patient agrees with plan for admission for further management. Will defer decision for Coumadin reversal to admitting team. Case was discussed with Dr. Chan, [facility] admitting resident with Dr. Ferguson [facility] hospitalist, who will evaluate the patient for admission. Triage Nursing notes reviewed and agree them. Prior medical records reviewed Vital Signs: reviewed and remarkable for no significant abnormalities Differential diagnosis: Gastroenteritis, food borne illness, infections, appendicitis, diverticulitis, inflammatory bowel disease, obstruction, GI bleed, biliary pathology, volvulus, as well as other pathologies. ER treatment provided: See below. Diagnostics interpreted by me: ECG: NSR, 97 bpm, no ectopy, no overt ST elevation or depression. Cardiac Monitoring: An order for continuous cardiac monitoring was placed and demonstrated NSR, 97 bpm, no ectopy Laboratory studies: See below Imaging studies: See below Consultation(s): Case was discussed with Dr. Ferguson, [facility] hospitalist, who will evaluate the patient for admission. HPI: The patient is a pleasant 80-year-old woman with a past medical history of CAD, COPD, sleep apnea, bipolar disorder, hypertension, hyperlipidemia, hypothyroidism, iron deficiency anemia, myasthenia gravis who presents to the emergency department for evaluation of persistent nausea and vomiting with f requent diarrhea beginning last night which she describes as watery black but in the setting of being on iron supplements. Patient symptoms occur in the setting of being discharged from [facility] yesterday after admission following left hip intertrochanteric nail on 03/08. The patient denies having any of the symptoms when she left [facility]. She is unaware of being on any antibiotics. She reports she was on Coumadin prophylactically following her surgery but stopped taking it the day of her discharge. She had also been on Lovenox following her surgery. ROS: See above HPI for pertinent positives & negatives. A total of 10 systems reviewed and were otherwise negative. PAST MEDICAL HISTORY:See Below PAST SURGICAL HISTORY:See Below FAMILY HISTORY:See Below SOCIAL HISTORY:See Below HOME MEDICATIONS:See Below ALLERGIES:See Below VITALS:See Below PHYSICAL EXAMINATION: GENERAL: Awake, alert, fatigued uncomfortable-appearing, in no distress HENT: Normocephalic, atraumatic. Oropharynx with dry mucous membranes and otherwise unremarkable. EYES: Normal conjunctiva. Sclera non-icteric. NECK: Supple. No nuchal rigidity. FROM. No JVD. RESPIRATORY: Clear to auscultation. CARDIAC: Regular rate, normal rhythm. Extremities warm and well perfused. Pulses equal. ABDOMEN: Soft, non-distended. Generalized abdominal discomfort without discrete tenderness. No rebound or guarding. No masses. Resolving ecchymosis of lower abdomen without overt subcutaneous hematoma. RECTAL: Deferred. MUSCULOSKELETAL: Chest examination reveals no tenderness. The back is symmetri airam on inspection without obvious abnormality. There is no CVA tenderness to palpation. No joint edema. LOWER EXTREMITIES: Calves are equal size bilaterally and non-tender. No edema. No discoloration. NEURO: Normal sensorium. No sensory or motor deficits noted. SKIN: No rash or jaundice noted. Nestor Beal MD Past Med/Surg History Medical History Anemia REASON FOR COLONOSCOPY 07/2019 Bipolar 1 disorder Breast cancer (08/23/14) "Abnormal bilateral mammogram Status post core needle biopsy 08/23/2014 revealing intraductal papilloma on the left Right breast showed invasive ductal carcinoma Status post right lumpectomy and sentinel lymph node biopsy 10/08/2014 Stage [id number] Status post completion of radiation therapy 12/24/2014 utilizing hypo-fracti onation received 5000 cGy" Breast cancer, right 2013--stage 1--lumpectomy and radiation CAD (coronary artery disease) Change in vision Chronic obstructive pulmonary disease inhaler daily Degenerative joint disease Depression Fall GERD (gastroesophageal reflux disease) History of colon polyps Hyperlipidemia Hypertension Hypothyroidism Medical marijuana use Myocardial Infarction "silent" in --follows with Dr. Gibbs On home oxygen therapy 2L N/C at hs Pancreatitis hx of Papilloma of breast left Sleep apnea Temporal arteritis Unstable angina Unstable angina Surgical History History of bilateral cataract extraction History of bilateral tubal ligation History of breast surgery removal of papilloma of left breast History of cardiac cath x3--last ---no stents History of cholecystectomy History of colonoscopy History of esophagogastroduodenoscopy (EGD) History of lumpectomy of right breast History of right breast biopsy malignant History of tooth extraction all teeth removed History of total hysterectomy with bilateral salpingo-oophorectomy (BSO) Family History Grandfather (Paternal) Family history of diabetes mellitus Other No family history of adverse response to anesthesia Social History Smoking Status: Former smoker Cigarettes Per Day: 20 a day; Second Hand Exposure: No; Do You Dip or Chew Tobacco: No; Tobacco Cessation Education Requested by Patient: No Hx Alcohol Use: No Hx Substance Use: No Preferred Language: Kuwaiti Communication Ability: Effective 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 Beliefs That Will Affect Care: None Current Living Situation: Spouse Other Information That Helps Us Care for You: No Feels Safe at Home: Yes Safety Concerns: Feels Safe At This Time Assistive Devices: Glasses and Walker Allergies Allergies Allergy/AdvReac Type Severity Reaction Status Date / Time metoclopramide Allergy Intermediate ESSENTIAL Verified 03/31/21 17:41 TREMORS clopidogrel Allergy Mild HIVES Verified 03/31/21 17:41 diazepam Allergy Mild DEPRESSION Verified 03/31/21 17:41 diltiazem Allergy Mild Light Verified 03/31/21 17:41 headed erythromycin base Allergy Mild EES, TAKES Verified 03/31/21 17:41 Z-PACKS W/O RXN gabapentin Allergy Mild States Verified 03/31/21 17:41 hands catch fire latex Allergy Mild rips skin Verified 03/31/21 17:41 off lisinopril Allergy Mild COUGH Verified 03/31/21 17:41 losartan Allergy Mild HIVES Verified 03/31/21 17:41 micafungin Allergy Mild rash Verified 03/31/21 17:41 oxycodone Allergy Mild INC. Verified 03/31/21 17:41 DEPRESSION Penicillins Allergy Mild Diarrhea Verified 03/31/21 17:41 promethazine Allergy Mild TROUBLE Verified 03/31/21 17:41 FOCUSING SPEAKING AT HIGHER DOSES Sulfa (Sulfonamide Allergy Mild SKIN Verified 03/31/21 17:41 Antibiotics) BECOMES PHOTOSENSITIVE AND BECOMES RED bupropion Allergy Unknown unknown Verified 03/31/21 17:41 dicyclomine Allergy Unknown Unknown Verified 03/31/21 17:41 potassium chloride Allergy Unknown Unknown Verified 03/31/21 17:41 sucralfate Allergy Unknown Unknown Verified 03/31/21 17:41 Knpmhbz-[id number]-Rgc Reductase AdvReac Intermediate Diarrhea Verified 03/31/21 17:41 Inhibitor amoxicillin AdvReac Mild DIARRHEA Verified 03/31/21 17:41 clavulanic acid AdvReac Mild DIARRHEA Verified 03/31/21 17:41 hydrocodone AdvReac Mild "dont like Verified 03/31/21 17:41 how it makes me feel" Home Meds Home Medications Medication Instructions Recorded Confirmed dexlansoprazole 60 mg PO HS 01/01/19 03/31/21 lamotrigine 150 mg PO QAM 01/01/19 03/31/21 nitroglycerin [Nitrostat] 0.4 mg SUBLINGUAL UD PRN 01/01/19 03/31/21 quetiapine 150 mg PO HS 01/01/19 03/31/21 roflumilast 500 mcg PO QAM 01/01/19 03/31/21 Oxygen Home #1 ea 07/21/20 03/23/21 cholecalciferol (vitamin D3) 25 25 mcg PO DAILY 01/11/21 03/31/21 mcg (1,000 unit) capsule cyanocobalamin (vitamin B-12) 5,000 mcg PO DAILY 01/11/21 03/31/21 5,000 mcg capsule ipratropium 20 mcg-albuterol 100 2 puff INHALATION Q6H PRN g 01/11/21 03/31/21 mcg/actuation mist for inhalation rosuvastatin 10 mg tablet 10 mg PO HS 01/11/21 03/31/21 acetaminophen 1,000 mg PO Q8 PRN 03/31/21 03/31/21 Previous Rx's Medication Instructions Recorded aspirin 81 mg PO BID 39 Days #78 tab 03/11/21 ferrous gluconate 324 mg PO BIDM #60 tab 03/11/21 nebivolol [Bystolic] 10 mg PO DAILY #30 tab 03/11/21 ondansetron HCl [Zofran] 4 mg PO Q8H PRN #6 tab 03/11/21 oxycodone 5 - 10 mg PO Q6 PRN #10 tab 03/11/21 pregabalin 75 mg PO HS #30 cap 03/11/21 Results & Data (ED) Vital Signs Vital Signs - 24 hr 03/31/21 15:36 03/31/21 16:24 03/31/21 17:25 Temperature 37.2 C Temperature Source Oral Pulse Rate 91 H Pulse Rate [Right Finger] 89 Respiratory Rate 20 18 Respiratory Effort / Characteristics Non-Labored Spontaneous Non-Labored Spontaneous Respiratory Depth Normal Normal Respiratory Pattern Regular Regular Blood Pressure 156/73 H Blood Pressure [Left Arm] 151/75 H Blood Pressure Mean 100 Blood Pressure Mean [Left Arm] 100 Blood Pressure Position Lying Blood Pressure Position [Left Arm] Sitting Pulse Oximetry 95 97 96 Oxygen Delivery Method Room Air Room Air Room Air Sepsis Recent Fever Within 48 Hours No Sepsis New/Unexplained Change in Mental Status N/A Sepsis Action Taken by Nursing No Action Required 03/31/21 18:41 Temperature Temperature Source Pulse Rate Pulse Rate [Right Finger] 93 H Respiratory Rate 18 Respiratory Effort / Characteristics Non-Labored Spontaneous Respiratory Depth Normal Respiratory Pattern Blood Pressure Blood Pressure [Left Arm] 148/94 H Blood Pressure Mean Blood Pressure Mean [Left Arm] 112 Blood Pressure Position Blood Pressure Position [Left Arm] Sitting Pulse Oximetry 96 Oxygen Delivery Method Room Air Sepsis Recent Fever Within 48 Hours Sepsis New/Unexplained Change in Mental Status Sepsis Action Taken by Nursing Laboratory Data Attestation: I reviewed the patient's lab results. Result diagrams: 03/31/21 22:20 03/31/21 16:25 Lab Results 03/31/21 03/31/21 03/31/21 Range/Units 16:25 16:25 16:25 WBC 6.27 (4.8-10.8) K/uL RBC 2.80 L (4.2-5.4) M/uL Hgb 8.5 L (12.0-16.0) g/dL Hct 27.7 L (37-47) % MCV 98.9 (80-100) fL MCH 30.4 (25-34) pg MCHC 30.7 L (32-36) g/dL RDW Std Deviation 65.3 H (36.4-46.3) fL RDW Coeff of Gino 18.6 H (11.5-14.5) % Plt Count 301 (130-400) K/uL MPV 9.3 (7.4-10.4) fL Immature Gran % (Auto) 0.3 % Neut % (Auto) 64.1 % Lymph % (Auto) 21.1 % Bee % (Auto) 12.3 % Eos % (Auto) 1.9 % Baso % (Auto) 0.3 % Neut # (Auto) 4.02 (1.4-6.5) K/uL Lymph # (Auto) 1.32 (1.2-3.4) K/uL Bee # (Auto) 0.77 H (0.11-0.59) K/uL Eos # (Auto) 0.12 (0-0.5) K/uL Baso # (Auto) 0.02 (0-0.2) K/uL Immature Gran # (Auto) 0.02 (0.00-0.02) K/uL PT (9.0-12.0) Seconds INR (0.9-1.1) Sodium 142 (136-145) mmol/L Potassium 4.0 (3.5-5.1) mmol/L Chloride 109 H (98-107) mmol/L Carbon Dioxide 25 (21-32) mmol/L Anion Gap 8.0 (3-11) BUN 18 (7-18) mg/dl Creatinine 1.00 (0.6-1.2) mg/dl Est Cr Clr Drug Dosing 42.1 ml/min Est GFR ( Amer) 62.5 ml/min Est GFR (Non-Af Amer) 53.9 ml/min BUN/Creatinine Ratio 17.8 (10-20) Glucose 88 (70-99) mg/dl Calcium 9.5 (8.5-10.1) mg/dl Phosphorus 3.5 (2.5-4.9) mg/dl Magnesium 2.0 (1.8-2.4) mg/dl Total Bilirubin 0.5 (0.2-1) mg/dl Direct Bilirubin 0.2 (0-0.2) mg/dl AST 12 L (15-37) U/L ALT 13 (12-78) U/L Alkaline Phosphatase 121 H (45-117) U/L Total Creatine Kinase 45 (26-192) U/L Troponin I < 0.015 (0-0.045) ng/ml Total Protein 6.8 (6.4-8.2) gm/dl Albumin 2.9 L (3.4-5.0) gm/dl Globulin 3.9 (2.5-4.0) gm/dl Albumin/Globulin Ratio 0.8 L (0.9-2) Lipase 90 (73-393) U/L Stl C. diff Tox B Gene (Neg) COVID-19 Eval Order Covid19 at [facility] SARS-CoV-2 (PCR) (Negative) Blood Type Antibody Screen 03/31/21 03/31/21 03/31/21 Range/Units 16:25 16:25 18:55 WBC (4.8-10.8) K/uL RBC (4.2-5.4) M/uL Hgb (12.0-16.0) g/dL Hct (37-47) % MCV (80-100) fL MCH (25-34) pg MCHC (32-36) g/dL RDW Std Deviation (36.4-46.3) fL RDW Coeff of Gino (11.5-14.5) % Plt Count (130-400) K/uL MPV (7.4-10.4) fL Immature Gran % (Auto) % Neut % (Auto) % Lymph % (Auto) % Bee % (Auto) % Eos % (Auto) % Baso % (Auto) % Neut # (Auto) (1.4-6.5) K/uL Lymph # (Auto) (1.2-3.4) K/uL Bee # (Auto) (0.11-0.59) K/uL Eos # (Auto) (0-0.5) K/uL Baso # (Auto) (0-0.2) K/uL Immature Gran # (Auto) (0.00-0.02) K/uL PT 33.3 H (9.0-12.0) Seconds INR 3.6 H (0.9-1.1) Sodium (136-145) mmol/L Potassium (3.5-5.1) mmol/L Chloride (98-107) mmol/L Carbon Dioxide (21-32) mmol/L Anion Gap (3-11) BUN (7-18) mg/dl Creatinine (0.6-1.2) mg/dl Est Cr Clr Drug Dosing ml/min Est GFR ( Amer) ml/min Est GFR (Non-Af Amer) ml/min BUN/Creatinine Ratio (10-20) Glucose (70-99) mg/dl Calcium (8.5-10.1) mg/dl Phosphorus (2.5-4.9) mg/dl Magnesium (1.8-2.4) mg/dl Total Bilirubin (0.2-1) mg/dl Direct Bilirubin (0-0.2) mg/dl AST (15-37) U/L ALT (12-78) U/L Alkaline Phosphatase (45-117) U/L Total Creatine Kinase (26-192) U/L Troponin I (0-0.045) ng/ml Total Protein (6.4-8.2) gm/dl Albumin (3.4-5.0) gm/dl Globulin (2.5-4.0) gm/dl Albumin/Globulin Ratio (0.9-2) Lipase (73-393) U/L Stl C. diff Tox B Gene Negative Cdiff Gene (Neg) COVID-19 Eval Order SARS-CoV-2 (PCR) NEGATIVE (Negative) Blood Type Antibody Screen 03/31/21 Range/Units 19:46 WBC (4.8-10.8) K/uL RBC (4.2-5.4) M/uL Hgb (12.0-16.0) g/dL Hct (37-47) % MCV (80-100) fL MCH (25-34) pg MCHC (32-36) g/dL RDW Std Deviation (36.4-46.3) fL RDW Coeff of Gino (11.5-14.5) % Plt Count (130-400) K/uL MPV (7.4-10.4) fL Immature Gran % (Auto) % Neut % (Auto) % Lymph % (Auto) % Bee % (Auto) % Eos % (Auto) % Baso % (Auto) % Neut # (Auto) (1.4-6.5) K/uL Lymph # (Auto) (1.2-3.4) K/uL Bee # (Auto) (0.11-0.59) K/uL Eos # (Auto) (0-0.5) K/uL Baso # (Auto) (0-0.2) K/uL Immature Gran # (Auto) (0.00-0.02) K/uL PT (9.0-12.0) Seconds INR (0.9-1.1) Sodium (136-145) mmol/L Potassium (3.5-5.1) mmol/L Chloride (98-107) mmol/L Carbon Dioxide (21-32) mmol/L Anion Gap (3-11) BUN (7-18) mg/dl Creatinine (0.6-1.2) mg/dl Est Cr Clr Drug Dosing ml/min Est GFR ( Amer) ml/min Est GFR (Non-Af Amer) ml/min BUN/Creatinine Ratio (10-20) Glucose (70-99) mg/dl Calcium (8.5-10.1) mg/dl Phosphorus (2.5-4.9) mg/dl Magnesium (1.8-2.4) mg/dl Total Bilirubin (0.2-1) mg/dl Direct Bilirubin (0-0.2) mg/dl AST (15-37) U/L ALT (12-78) U/L Alkaline Phosphatase (45-117) U/L Total Creatine Kinase (26-192) U/L Troponin I (0-0.045) ng/ml Total Protein (6.4-8.2) gm/dl Albumin (3.4-5.0) gm/dl Globulin (2.5-4.0) gm/dl Albumin/Globulin Ratio (0.9-2) Lipase (73-393) U/L Stl C. diff Tox B Gene (Neg) COVID-19 Eval Order SARS-CoV-2 (PCR) (Negative) Blood Type B Positive Antibody Screen NEGATIVE Administered Medications Sodium Chloride (Nss 1000ml) 1,000 mls @ 100 mls/hr IV .Q10H AJNINE Stop: 04/30/21 22:03 Last Infusion: 03/31/21 23:14 Dose: 100 mls/hr Documented by: [id number] Infusion: 03/31/21 22:44 Dose: 0 mls/hr Documented by: [id number] Admin: 03/31/21 22:43 Dose: 100 mls/hr Documented by: [id number] Quetiapine Fumarate (Quetiapine Fumarate 150 Mg Tabcr) 150 mg PO HS JANINE Stop: 04/30/21 22:03 Last Admin: 03/31/21 23:13 Dose: 150 mg Documented by: [id number] Rosuvastatin Calcium (Rosuvastatin Calcium 10 Mg Tab) 10 mg PO HS JANINE Stop: 04/30/21 22:03 Last Admin: 03/31/21 23:13 Dose: 10 mg Documented by: [id number] Discontinued Medications Famotidine (Pepcid 20mg Iv Push) 20 mg in 5 mls @ 2.5 mls/min IV NOW STA Stop: 03/31/21 16:13 Last Admin: 03/31/21 16:34 Dose: 2.5 mls/min Documented by: [id number] Sodium Chloride (Nss 1000ml) 1,000 mls @ 999 mls/hr IV .Q1H1M ONE Stop: 03/31/21 17:12 Last Infusion: 03/31/21 17:41 Dose: 0 mls/hr Documented by: [id number] Admin: 03/31/21 16:34 Dose: 999 mls/hr Documented by: [id number] Pantoprazole Sodium 40 mg/ (Syringe) 10 mls @ 5 mls/min IV NOW ONE Stop: 03/31/21 19:02 Last Admin: 03/31/21 20:00 Dose: 5 mls/min Documented by: [id number] Prochlorperazine (Compazine) 1 mls @ 1 mls/min IV ONE ONE Stop: 03/31/21 19:04 Last Admin: 03/31/21 20:01 Dose: 1 mls/min Documented by: [id number] Phytonadione 5 mg/ Sodium (Chloride) 50.5 mls @ 101 mls/hr IV ONE ONE Stop: 03/31/21 22:44 Last Infusion: 03/31/21 23:14 Dose: 0 mls/hr Documented by: [id number] Admin: 03/31/21 22:44 Dose: 101 mls/hr Documented by: [id number] Ioversol (Optiray 300 100ml) 83 ml IV ONCE ONE Stop: 03/31/21 17:36 Last Admin: 03/31/21 17:36 Dose: 83 ml Documented by: [id number] Ondansetron HCl (Ondansetron Inj 2 Mg/Ml 2 Ml Vial) 4 mg IV NOW STA Stop: 03/31/21 16:13 Last Admin: 03/31/21 16:34 Dose: 4 mg Documented by: [id number] Imaging Data Radiologist's Impression: Chest X-Ray 03/31/21 16:08 XR chest 1V portable CLINICAL HISTORY: Chest Pain COMPARISON STUDY: Chest CT August 15, 2018. Chest radiograph March 07, 2021. FINDINGS: Lung volumes are normal. There is no pneumothorax or pleural effusion. There is no evidence for pulmonary edema. Cardiomediastinal silhouette is stable. Underlying emphysema is better depicted on prior chest CT. Subtle lower lung interstitial thickening is likely chronic. IMPRESSION: No acute cardiopulmonary findings. ACT 112: Negative or not required by law. Electronically signed by: Wes Lui M.D. 03/31/2021 4:37 PM Abdomen/Pelvis CT 03/31/21 16:11 CT OF THE ABDOMEN AND PELVIS WITH CONTRAST CLINICAL HISTORY: Nausea, vomiting, black diarrhea . COMPARISON STUDY: CT of the abdomen and pelvis January 01, 2019. TECHNIQUE: Following IV administration of 83 mL of Optiray, axial images of the abdomen and pelvis were obtained from the lung bases to the proximal femurs. Images were reviewed in the axial, sagittal, and coronal planes. IV contrast was administered without complication. Automated exposure control was utilized for the study. A dose lowering technique was utilized adhering to the principles of ALARA. CT DOSE: 509.34 mGy.cm FINDINGS: Lung bases are unremarkable. A small hiatal hernia is noted. Hepatic steatosis is noted. There are no hepatic lesions. Borderline splenomegaly is noted. Biliary ductal dilatation is unchanged since prior CT. This is likely related to cholecystectomy. Mild pancreatic ductal dilatation is also unchanged. There is no peripancreatic infiltration. A left renal cyst is present. There is no hydronephrosis. Subcentimeter right renal lesion is too small to characterize. The appendix is normal. Sigmoid diverticulosis is noted without evidence for acute diverticulitis. Injection sites are noted within the subcutaneous tissues. Internal fixation of the intertrochanteric fracture of the left femur is partially imaged. Moderate to extensive atherosclerotic plaque is noted within the major vessels. IMPRESSION: 1. No acute process within the abdomen or pelvis. 2. Sigmoid diverticulosis. No evidence for acute diverticulitis. No bowel wall thickening. Normal appendix. 3. Small hiatal hernia. ACT 112: Negative or not required by law. Electronically signed by: Wes Lui M.D. 03/31/2021 5:59 PM Discharge Plan Visit Data Chief Complaint: Diarrhea ED Provider: Nestor Beal Discharge Problem: Gastroenteritis, Iron (Fe) deficiency anemia, Heme + stool, Supratherapeutic INR Patient Disposition: Admitted As Inpatient Discharge Instructions Interventions: ED Discharge Assessment Last Done: 03/31/21 21:29 Discharge Problem: Iron (Fe) deficiency anemia Qualifiers: Iron deficiency anemia type: unspecified iron deficiency Qualified Code(s): D50.9 - Iron deficiency anemia, unspecified
--- NOTE | 2021-03-31 20:27 | History & Physical Report ---
Date of Service March 31, 2021 Assessment & Plan (1) Diarrhea: Mrs. Collier is a 80 yo woman who presented for evaluation of profuse watery diarrhea with associated nausea and vomiting. On arrival, her stool was heme + and she was supratherapeutic on Coumadin. - etiology uncertain. Infectious cause seems unlikely as patient is without constitutional symptoms. WBC not elevated. No evidence of colitis noted on A/P CT scan. She does have risk factors for Cdiff (recent hospitalization, recent SNF stay). Cdiff and stool culture ordered. - Stool is heme + and INR is 3.1 (above goal of 2.0-2.5) - if patient has GI bleed, blood is irritant to GI tract and may therefore be causing diarrhea. Dark color may be secondary to blood vs. oral iron supplement. - GI consult placed, appreciate recs - Zofran prn for nausea. QTc normal at 444ms. (2) Heme + stool: - noted in ED - patient is suprahepatic on Coumadin (above goal of 2.0-2.5) - unclear if this represents true melena vs. shedding from over-anticoauglation - at this point, coumadin and lovenox have been discontinued - hold home daily baby ASA - GI consult placed, consider scope (3) DVT (deep venous thrombosis): - occurred in post-operative period after recent L hip fracture repair (per records) - patient was placed on both Lovenox and Coumadin (presumably, patient was bridged with Lovenox to Coumadin, although she reports using the two concurrently for much of the treatment course). It is also unclear why patient was placed on Coumadin over a DOAC for management of her DVT - anticoagulation was discontinued day prior to admission. - hold home daily baby asa in setting of possible GI bleed. - will order venous duplex to assess for presence of DVTs - if clots are visualized, patient may need IVC filter placed (4) Supratherapeutic INR: - INR 3.1 on admission - Goal INR 2.0-2.5 - Coumadin d/c on 03/29. Lovenox stopped 03/28 - 5mg Vit K given on admission due ot possible concurrent GI bleed - repeat coags in am (5) Iron (Fe) deficiency anemia: - Hgb 8.1 on admission. MCV 97. Normocytic - patient is hemodynamically stable - Hgb was 8.2 on discharge during previous hospital stay. Iron studies ordered during past admission were suggestive of low stores. Patient had been started on ferrous sulfate 325mg BID supplementation - trend CBC - transfuse if < 8 given history of CAD (6) CAD (coronary artery disease): - Multivessel CAD; RCA, LCX, LAD, Left main and ramus - cardiac caths 2001, 2006,- collateral flow- medical management recommended by her epic application coordinator - continue home dose statin - hold home ASA given possible GI bleed - Intolerance to MARISA and ARB- cough/hives respectively -Takes nebivolol 10mg PO QAM at home which was replaced here with formulary equivalent of metoprolol 25 mg p.o. 3 times daily for elevated blood pressure (7) COPD (chronic obstructive pulmonary disease): - Borderline with PFT's - Patient does not take her inhalers daily because they make her jittery, she takes them as she feels she needs the - Continue Roflumilast, Albuterol/ipratropium. (8) Bipolar 1 disorder: - continue home lamotrigine and quetiapaine Borderline with PFT's Diet: NPO Dispo: Med/Surg with tele Code: DNR/DNI History of Present Illness Primary Care Provider: Abiel Clark MD Mrs. Castellanos is a 80 yo woman who presented for evaluation of profuse black watery diarrhea. Of note, she suffered a left intertrochanteric hip fracture on 03/08/21, s/p ORIF with Dr. Lopez. She was discharged to [facility] for rehab following her hospitalization. In the post-operative period, she developed a DVT in her left leg - she was then placed on both Lovenox and Coumadin. It is unclear who was managing her anticoagulation while at [facility] - she states she was directed to discontinue the Coumadin on 03/29/21. She says she was using the daily Lovenox injection up until 03/28/21. She was not on any antibiotics in the post-operative setting. She was discharged from [facility] on 03/30/21 - on arrival home, she developed nausea/vomiting. There was no blood in the vomitus, nor did it appear to look like coffee grounds. She later developed profuse "black watery stool." She had two episodes today prior to admission, followed by one in the ED. She denies any constitutional symptoms (malaise, fever/chills); no abdominal pain or urinary symptoms. She does feel weak and lightheaded. She insists she did not eat anything out of the ordinary Social Hx: she lives at home with her . Past Surgical Hx: patient had cholecystectomy and hysterectomy In the ED: She was afebrile, hemodynamically stable. Her WBC was not elevated. Her Hgb was 8.1. MCV 97. Platelets normal. INR elevated to 3.6. CMP was normal. Trop was undetectable. Lipase not elevated. Hemoccult stool was positive. cdiff pending. Stool culture pending. CXR normal. A/P CT scan without acute abnormalities. EKG showing normal sinus rhythm, no concern for ischemia. She was given 1 liter of normal saline, 40mg IV protonix, 20mg IV pepcid, 4mg zofran. Allergies Allergy/AdvReac Type Severity Reaction Status Date / Time metoclopramide Allergy Intermediate ESSENTIAL Verified 03/31/21 17:41 TREMORS clopidogrel Allergy Mild HIVES Verified 03/31/21 17:41 diazepam Allergy Mild DEPRESSION Verified 03/31/21 17:41 diltiazem Allergy Mild Light Verified 03/31/21 17:41 headed erythromycin base Allergy Mild EES, TAKES Verified 03/31/21 17:41 Z-PACKS W/O RXN gabapentin Allergy Mild States Verified 03/31/21 17:41 hands catch fire latex Allergy Mild rips skin Verified 03/31/21 17:41 off lisinopril Allergy Mild COUGH Verified 03/31/21 17:41 losartan Allergy Mild HIVES Verified 03/31/21 17:41 micafungin Allergy Mild rash Verified 03/31/21 17:41 oxycodone Allergy Mild INC. Verified 03/31/21 17:41 DEPRESSION Penicillins Allergy Mild Diarrhea Verified 03/31/21 17:41 promethazine Allergy Mild TROUBLE Verified 03/31/21 17:41 FOCUSING SPEAKING AT HIGHER DOSES Sulfa (Sulfonamide Allergy Mild SKIN Verified 03/31/21 17:41 Antibiotics) BECOMES PHOTOSENSITIVE AND BECOMES RED bupropion Allergy Unknown unknown Verified 03/31/21 17:41 dicyclomine Allergy Unknown Unknown Verified 03/31/21 17:41 potassium chloride Allergy Unknown Unknown Verified 03/31/21 17:41 sucralfate Allergy Unknown Unknown Verified 03/31/21 17:41 [id number] Reductase AdvReac Intermediate Diarrhea Verified 03/31/21 17:41 Inhibitor amoxicillin AdvReac Mild DIARRHEA Verified 03/31/21 17:41 clavulanic acid AdvReac Mild DIARRHEA Verified 03/31/21 17:41 hydrocodone AdvReac Mild "dont like Verified 03/31/21 17:41 how it makes me feel" Home Medications Medication Instructions Recorded Confirmed Type dexlansoprazole 60 mg PO HS 01/01/19 03/31/21 History lamotrigine 150 mg PO QAM 01/01/19 03/31/21 History nitroglycerin [Nitrostat] 0.4 mg SUBLINGUAL UD PRN 01/01/19 03/31/21 History quetiapine 150 mg PO HS 01/01/19 03/31/21 History roflumilast 500 mcg PO QAM 01/01/19 03/31/21 History Oxygen Home #1 ea 07/21/20 03/23/21 History cholecalciferol (vitamin D3) 25 25 mcg PO DAILY 01/11/21 03/31/21 History mcg (1,000 unit) capsule cyanocobalamin (vitamin B-12) 5,000 mcg PO DAILY 01/11/21 03/31/21 History 5,000 mcg capsule ipratropium 20 mcg-albuterol 100 2 puff INHALATION Q6H PRN g 01/11/21 03/31/21 History mcg/actuation mist for inhalation rosuvastatin 10 mg tablet 10 mg PO HS 01/11/21 03/31/21 History aspirin 81 mg PO BID 39 Days #78 tab 03/11/21 03/31/21 Rx ferrous gluconate 324 mg PO BIDM #60 tab 03/11/21 03/31/21 Rx nebivolol [Bystolic] 10 mg PO DAILY #30 tab 03/11/21 03/31/21 Rx ondansetron HCl [Zofran] 4 mg PO Q8H PRN #6 tab 03/11/21 03/31/21 Rx oxycodone 5 - 10 mg PO Q6 PRN #10 tab 03/11/21 03/31/21 Rx pregabalin 75 mg PO HS #30 cap 03/11/21 03/31/21 Rx acetaminophen 1,000 mg PO Q8 PRN 03/31/21 03/31/21 History Past Med/Surg History Medical History Anemia REASON FOR COLONOSCOPY 07/2019 Bipolar 1 disorder Breast cancer (08/23/14) "Abnormal bilateral mammogram Status post core needle biopsy 08/23/2014 revealing intraductal papilloma on the left Right breast showed invasive ductal carcinoma Status post right lumpectomy and sentinel lymph node biopsy 10/08/2014 Stage [id number] Status post completion of radiation therapy 12/24/2014 utilizing hypo-fractionation received 5000 cGy" Breast cancer, right 2014--stage 1--lumpectomy and radiation CAD (coronary artery disease) Change in vision Chronic obstructive pulmonary disease inhaler daily Degenerative joint disease Depression Fall GERD (gastroesophageal reflux disease) History of colon polyps Hyperlipidemia Hypertension Hypothyroidism Medical marijuana use Myocardial Infarction "silent" in s--follows with Dr. Gibbs On home oxygen therapy 2L N/C at hs Pancreatitis hx of Papilloma of breast left Sleep apnea Temporal arteritis Unstable angina Unstable angina Surgical History History of bilateral cataract extraction History of bilateral tubal ligation History of breast surgery removal of papilloma of left breast History of cardiac cath x3--last ---no stents History of cholecystectomy History of colonoscopy History of esophagogastroduodenoscopy (EGD) History of lumpectomy of right breast History of right breast biopsy malignant History of tooth extraction all teeth removed History of total hysterectomy with bilateral salpingo-oophorectomy (BSO) Family History Grandfather (Paternal) Family history of diabetes mellitus Other No family history of adverse response to anesthesia Social History Smoking Status: Former smoker Cigarettes Per Day: 20 a day; Second Hand Exposure: No; Do You Dip or Chew Tobacco: No; Tobacco Cessation Education Requested by Patient: No Hx Alcohol Use: No Hx Substance Use: No Preferred Language: Panamanian Communication Ability: Effective Technical Support Agent Required: No Beliefs That Will Affect Care: None Current Living Situation: Spouse Other Information That Helps Us Care for You: No Feels Safe at Home: Yes Safety Concerns: Feels Safe At This Time Assistive Devices: Walker Review of Systems Constitutional: + weakness; no fever and no chills Gastrointestinal: + nausea and + diarrhea/loose stools; no coffee ground emesis Physical Exam Constitutional: WD/WN, vitals as above cooperative; no acute distress Eyes: + anicteric sclerae ENMT: external ear and nose normal, oropharynx normal Neck: normal visual inspection and trachea midline Respiratory: normal respiratory effort, lungs clear to auscultation no cough Auscultation: no crackles, no rales, no rhonchi and no wheezes Cardiovascular: Rate/Rhythm: regular rate and regular rhythm Heart Sounds: normal S1, normal S2 and + murmur (systolic ejection) Extremities: + pedal edema Gastrointestinal (Abdomen): Inspection/Auscultation: abdomen normal to inspection and normal bowel sounds; abdomen not distended Percussion/Palpation: + abdomen tender (mild RUQ tenderness) and abdomen soft Skin: no rashes, warm and dry Psychiatric: A+Ox3, euthymic affect Results & Data Results & Data ([facility]) Vital Signs (Past 12 Hours) Vital Signs Temp Pulse Pulse Resp BP BP Pulse Ox 03/31/21 18:41 93 H 18 148/94 H 96 03/31/21 17:25 89 18 151/75 H 96 03/31/21 16:24 97 03/31/21 15:36 37.2 C 91 H 20 156/73 H 95 Supervising Physician Co-Signing Physician Notes Attending addendum: I have physically seen this patient, have supervised the medical residents activities, and agree with the H&P unless as otherwise noted. Assessment and Plan: Upper GI bleed/heme positive stool diarrheal stools- NPO Admit to monitored bed Stool for C. difficile and culture If C. difficile negative, start ceftriaxone 1 g IV daily Protonix IV Zofran 4 mg IV every 6 hours as needed Hold warfarin Supratherapeutic INR- INR 3.1 upon admission. Partially reversed with 5 mg vitamin K IV to decrease upper GI bleeding Follow laboratory serially DVT of lower extremity status post left hip ORIF on 03/08- Order venous Doppler lower extremity. If negative, will stop anticoagulation Of lower extremity DVT is still positive, will consider vascular consult for possible IVC filter if bleeding is persistent. Remaining orders and notations as noted Resident Activity Tracking Resident Involvement: Resident Care Provided Care Provided: Adult Hospital Medicine (1) CAD (coronary artery disease) Associated angina: without angina Coronary Disease-Associated Artery/Lesion type: [place] artery [place] vs. transplanted heart: [place] heart Qualified Code(s): I25.10 - Atherosclerotic heart disease of [place] coronary artery without angina pectoris (2) Iron (Fe) deficiency anemia Iron deficiency anemia type: unspecified iron deficiency Qualified Code(s): D50.9 - Iron deficiency anemia, unspecified (3) COPD (chronic obstructive pulmonary disease) COPD type: unspecified COPD Qualified Code(s): J44.9 - Chronic obstructive pulmonary disease, unspecified
[2021-03-31] MEDS ORDERED: NITROGLYCERIN SL 0.4 MG/TAB TAB SL PRN (22:04)
[2021-03-31] MEDS ORDERED: IPRATROPIUM BROMIDE/ALBUTEROL respimat INH INH PRN (22:04)
[2021-03-31] MEDS ORDERED: PHYTONADIONE 5 MG in SODIUM CHLORIDE 0.9% 50 ML IV ONE (22:15)
[2021-03-31] MEDS ORDERED: Albuterol HFA 8 GM Inhaler (Combivent Respimat P&T Subs) INH PRN (22:18)
[2021-03-31] MEDS ORDERED: Ipratropium HFA Inhaler (Combivent Respimat P&T Subs) INH PRN (22:18)
[2021-03-31 22:33] LABS: Hematocrit (blood only) 27.4 % (37-47); Hemoglobin 8.6 g/dL (12.0-16.0)
[2021-03-31] MEDS: SODIUM CHLORIDE 0.9% 1000ML 1,000 ML IV SCH (22:43)
[2021-03-31] MEDS: ROSUVASTATIN CALCIUM 10 MG TAB PO SCH (23:13)
[2021-04-01 05:43] LABS: Basophils # (auto) 0.02 K/uL (0-0.2); Basophils % (auto) 0.4 %; Eosinophils # (auto) 0.23 K/uL (0-0.5); Eosinophils % (auto) 4.5 %; Hemoglobin 7.7 g/dL (12.0-16.0); Immature Granulocytes # (auto) 0.02 K/uL (0.00-0.02); Immature Granulocytes % (auto) 0.4 %; Lymphocytes # (auto) 1.79 K/uL (1.2-3.4); Lymphocytes % (auto) 35.2 %; Mean Corpuscular Hemoglobin 30.3 pg (25-34); Mean Corpuscular Hgb Conc 30.8 g/dL (32-36); Mean Corpuscular Volume 98.4 fL (80-100); Mean Platelet Volume 9.2 fL (7.4-10.4); Monocytes # (auto) 0.73 K/uL (0.11-0.59); Monocytes % (auto) 14.3 %; Neutrophils % (auto) 45.2 %; Platelet Count 263 K/uL (130-400); RDW Standard Deviation 66.8 fL (36.4-46.3); Red Blood Count 2.54 M/uL (4.2-5.4); White Blood Count 5.09 K/uL (4.8-10.8)
[2021-04-01 05:49] LABS: INR 1.6 (0.9-1.1)
[2021-04-01 06:11] LABS: BUN Creatinine Ratio 16.4 (10-20); Calcium 8.6 mg/dl (8.5-10.1); Creatinine Clr Calc Pharmacy 50.4 ml/min; Est GFR (African American) 77.2 ml/min; Est GFR (Non-African American) 66.6 ml/min; Potassium 3.6 mmol/L (3.5-5.1)
[2021-04-01] MEDS ORDERED: ACETAMINOPHEN 1,000 MG/100 ML VIAL IV ONE (06:30)
[2021-04-01 06:46] LABS: Anisocytosis Present; Polychromasia 1+
--- NOTE | 2021-04-01 06:56 | Hospitalist Progress Note ---
Date of Service April 01, 2021 Assessment & Plan (1) Diarrhea: Popeye Collier is a 80 y/o F w/ CAD, COPD, GERD, htn, hld, hypothyroid, TIMOTHY, and L DVT s/p hip fx repair in late February 2021w/ subsequent LLE DVT who presents w/ ~2.5 wks of black-colored loose stools w/ several days of watery diarrhea. She had been on Lovenox + Coumadin until 2-3 days ago. Stable, improving clinically. Mostly not tachycardic. No hypotension. black watery diarrhea - given hx of darker than normal appearance (iron supp not new) in context of recent double AC use (Lovenox + Coumadin), considered melena/UGIB (e.g. from PUD). consulted GI who plans to perform elective upper endoscopy on 04/03. Normal upper endoscopy in 2019 per GI. Stool was heme occult + at admission. INR was 3.6 at admission. Patient's Hb has been somewhat downtrending. 8.2->8.1->7.7 (03/11->03/31->04/01). 9s and 10s in months prior. - no coffee ground emesis - diarrhea may also be from infectious etiology. cdif neg. stool studies pending. - suspicion for LGIB lower at this time, no BRBPR. 2019 colonoscopy no LGIB. - patient has not taken coumadin or lovenox ~1 day prior to admission. continue to hold - hold home daily baby ASA DVT - occurred in post-operative period after recent L hip fracture repair (per records) - patient was placed on both Lovenox and Coumadin (presumably, patient was bridged with Lovenox to Coumadin, although she reports using the two concurrently for much of the treatment course). It is also unclear why patient was placed on Coumadin over a DOAC for management of her DVT - anticoagulation was discontinued 2-3 days prior to admission - hold home daily baby asa in setting of possible GI bleed. - 04/01 venous doppler of BLE was negative and did not show DVT supratherapeutic INR - INR 3.6 on admission - Goal INR 2.0-2.5 - Coumadin d/c on 03/29. Lovenox stopped 03/28 - 5mg Vit K given on admission due ot possible concurrent GI bleed - repeat coags in am iron deficiency anemia - Hgb 8.1 on admission. MCV 97. Normocytic. 7.7 on 04/01 - patient is hemodynamically stable - Hgb was 8.2 on discharge during previous hospital stay. Iron studies ordered during past admission were suggestive of low stores. Patient had been started on ferrous sulfate 325mg BID supplementation - trend CBC - consider transfuse if < 8 given history of CAD. 04/01 deferred transfusion at this time, but will continue to monitor CAD - Multivessel CAD; RCA, LCX, LAD, Left main and ramus - cardiac caths 2001, 2006,- collateral flow- medical management recommended by her director of market research - continue home dose statin - hold home ASA given possible GI bleed - Intolerance to MARISA and ARB- cough/hives respectively -Takes nebivolol 10mg PO QAM at home which was replaced here with formulary equivalent of metoprolol 25 mg p.o. 3 times daily for elevated blood pressure COPD - Borderline with PFT's - Patient does not take her inhalers daily because they make her jittery, she takes them as she feels she needs the - Continue Roflumilast, Albuterol/ipratropium. Bipolar I - continue home lamotrigine and quetiapaine Borderline with PFT's Diet: Clears. DC'd IVF. Dispo: Med/Surg with tele Code: DNR/DNI (2) Heme + stool: (3) DVT (deep venous thrombosis): (4) Supratherapeutic INR: (5) Iron (Fe) deficiency anemia: (6) CAD (coronary artery disease): (7) COPD (chronic obstructive pulmonary disease): (8) Bipolar 1 disorder: (9) Stool color black: (10) Watery diarrhea: Admission and Anticipated Discharge Date Admission Date: March 31, 2021 Supervising Physician Co-Signing Physician Notes I personally examined the patient and verified all schulte points of history and exam, discussed case, and agree with decision making with Dr Billings feeling better stomach hurts a little less cramping less diarrhea. Vitals noted, in general she is awake and alert pleasant no distress. HEENT normocephalic atraumatic mucous membranes moist. Breathing unlabored no accessory muscle use good effort. Skin shows no rashes no pallor or icterus. Abdomen is soft but she does have epigastric and right upper quadrant tenderness as well as some mild diffuse tenderness no guarding rebound or rigidity. Melena/diarrhea with acute blood loss anemiain the context of anticoagulation for DVT. Biggest concern would be any sort of upper GI source like peptic ulcer disease. PPI, hold anticoagulation for now. Anticipate EGD. DVThas been treated for a few weeks, for now anticoagulation held due to bleeding, if anticoagulation needs to be held prolonged, then would consider IVC filter, but hopefully can just resume anticoagulation in the near future. Otherwise as above Subjective Zofran helped the nausea and vomiting (clear brown) from yesterday. No current n/v. + black watery diarrhea yest afternoon. x1 this AM. No meza, dizzi, urinary symptoms. No hx cdiff. No recent abx use. Currently is doing well. Mild abd discomfort that she attributes to diarrhea. Otherwise no pain. Review of Systems Review of Systems: Constitutional: Denies fever, chills, weight change Eyes: Denies blurry vision, vision changes ENT: Denies sore throat, Cardiovascular: Denies chest pain, palpitations Respiratory: Denies shortness of breath Gastrointestinal: Denies abdominal pain, nausea, vomiting. + diarrhea Genitourinary: Denies urinary symptoms including dysuria Musculoskeletal: Denies weakness, muscle aches/pain, joint aches/pain Neurological: Denies headache, numbness, tingling, focal weakness Physical Exam Physical Exam: General: Grossly A&O. NAD. Cooperative. HEENT: Atraumatic, normocephalic. EOMI Pulm: CTAB. -wheezes, -rales, -rhonchi. No respiratory distress. Cardiac: RRR, 2/6 systolic murmur. No LE edema, but is slightly puffy. some ttp on palpation of r thompson. Abdominal: Diffuse mild TTP, worse at L side where she received IM injection, nondistended, soft. Results & Data Results & Data ([facility]) Vital Signs (Past 12 Hours) Vital Signs Temp Pulse Pulse Pulse Resp BP Pulse Ox 04/01/21 03:00 36.7 C 90 18 147/64 H 98 04/01/21 00:00 90 03/31/21 23:45 37.2 C 84 16 147/75 H 98 03/31/21 23:22 36.9 C 93 H 18 152/77 H 93 03/31/21 23:10 149/73 H 03/31/21 23:09 36.9 C 93 H 18 93 03/31/21 22:43 36.4 C L 90 18 129/73 93 03/31/21 22:06 37.0 C 122 H 18 175/74 H 94 Resident Activity Tracking Resident Involvement: Resident Care Provided Care Provided: Adult [facility] Medicine (1) Iron (Fe) deficiency anemia Iron deficiency anemia type: unspecified iron deficiency Qualified Code(s): D50.9 - Iron deficiency anemia, unspecified (2) CAD (coronary artery disease) Coronary Disease-Associated Artery/Lesion type: [place] artery [place] vs. transplanted heart: [place] heart Associated angina: without angina Qualified Code(s): I25.10 - Atherosclerotic heart disease of [place] coronary artery without angina pectoris (3) COPD (chronic obstructive pulmonary disease) COPD type: unspecified COPD Qualified Code(s): J44.9 - Chronic obstructive pulmonary disease, unspecified
[2021-04-01] MEDS: SODIUM CHLORIDE 0.9% 1000ML 1,000 ML IV SCH ×2 (07:57→17:51)
[2021-04-01] MEDS: METOPROLOL TARTRATE 25 MG TAB PO SCH ×3 (07:57→19:38)
[2021-04-01] MEDS: lamoTRIgine 100 MG TAB PO SCH (07:57)
[2021-04-01] MEDS: ROFLUMILAST 500 MCG TAB PO SCH (07:57)
[2021-04-01] MEDS ORDERED: FERROUS GLUCONATE 324 MG TAB PO SCH (08:00)
--- NOTE | 2021-04-01 09:45 | Ultrasound Report ---
US venous doppler LE BI CLINICAL HISTORY: Recent hip fracture. History of prior left leg DVT. Patient off Coumadin. COMPARISON STUDY: December 2009 FINDINGS: Real-time and color flow Doppler imaging were performed. Flow was seen within the femoral, popliteal and calf veins with no intraluminal thrombus demonstrated. The saphenous vein is patent. IMPRESSION: No evidence of lower extremity DVT. ACT 112: Negative or not required by law. Electronically signed by: Rolando Alvarez M.D. 04/01/2021 9:44 AM
[2021-04-01] MEDS: ACETAMINOPHEN 325 MG TAB PO PRN (13:11)
[2021-04-01] MEDS: PANTOprazole 40 MG in SYRINGE 0 ML IV SCH (13:11)
--- NOTE | 2021-04-01 16:29 | Electrocardiogram Report ---
Test Reason : Blood Pressure : / mmHG Vent. Rate : 097 BPM Atrial Rate : 097 BPM P-R Int : 128 ms QRS Dur : 074 ms QT Int : 350 ms P-R-T Axes : 015 032 088 degrees QTc Int : 444 ms Normal sinus rhythm Normal ECG When compared with ECG of 07-MAR-2021 19:35, Vent. rate has increased BY 39 BPM Confirmed by Abad Ledezma ([id number]) on 04/01/2021 4:29:07 PM Referred By: REFERRED SELF Confirmed By:Blayne Ledezma
--- NOTE | 2021-04-01 16:36 | Gastrointestinal Consultation ---
Date of Consultation April 01, 2021 Assessment & Plan (1) Heme + stool: melena--- For both above continue PPI, hold anticoagulation and ASA. Improved subjectiveley with stools more brown per patient report. Plan elective EGD saturday unless she actively bleeds then do sooner. Clear liquid diet ok for now. diarrhea--await stool studies. Could have been looser from GI bleeding. blood loss anemia--follow H and H and transfuse prn. History of Present Illness Reason for Consultation: black stools, heme positive Requesting Physician: Dr Billings Attending Physician: Ulisses Sutherland, DO History of Present Illness CC diarhea with black stools HPI Reviewed [facility] EMR and no GI outpt visits. Reviewed this EMR and found EGD report 05/[address] Garcia for Fe def and thickened esoophagus on CT which was normals. Reviewed colonscopy also done by Dr Garcia 07/2019 for Fe def which showed tattoo in AC with adjacent scar. Pt with recent hip fx and then repaair 03/08/21. She was on lovenox and coumadin for this and also apparent leg DVT. 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 She also has chronic dark stools but thought darker last few days prior to admit. Diarrhea was worse and she was admitted to hospital. INR apparently once day off coumadin 3.6 and with correction is 1.6 today. Admit Hgb 8.1 vs baseline 8.2 on 02/19/21 then 77 today. Her med list includes ASA and dexilant but patient not sure what meds she is taking but does not think she was taking acid suppression meds. IV protonix started and Fe held and food held. She states stools loose but slightly firmer as of last one 1 hour to being seen and becoming more brown. She denies abd pain. CT a/p showed dilated bile duct likely s/p nahum and dilated PD both of which similar 2019 ct so likely both benign process. LFTs alk phos 121 o/w nromal. Stool for cdiff neg. Stool cx pending. Allergies Allergy/AdvReac Type Severity Reaction Status Date / Time metoclopramide Allergy Intermediate ESSENTIAL Verified 03/31/21 17:41 TREMORS clopidogrel Allergy Mild HIVES Verified 03/31/21 17:41 diazepam Allergy Mild DEPRESSION Verified 03/31/21 17:41 diltiazem Allergy Mild Light Verified 03/31/21 17:41 headed erythromycin base Allergy Mild EES, TAKES Verified 03/31/21 17:41 Z-PACKS W/O RXN gabapentin Allergy Mild States Verified 03/31/21 17:41 hands catch fire latex Allergy Mild rips skin Verified 03/31/21 17:41 off lisinopril Allergy Mild COUGH Verified 03/31/21 17:41 losartan Allergy Mild HIVES Verified 03/31/21 17:41 micafungin Allergy Mild rash Verified 03/31/21 17:41 oxycodone Allergy Mild INC. Verified 03/31/21 17:41 DEPRESSION Penicillins Allergy Mild Diarrhea Verified 03/31/21 17:41 promethazine Allergy Mild TROUBLE Verified 03/31/21 17:41 FOCUSING SPEAKING AT HIGHER DOSES Sulfa (Sulfonamide Allergy Mild SKIN Verified 03/31/21 17:41 Antibiotics) BECOMES PHOTOSENSITIVE AND BECOMES RED bupropion Allergy Unknown unknown Verified 03/31/21 17:41 dicyclomine Allergy Unknown Unknown Verified 03/31/21 17:41 potassium chloride Allergy Unknown Unknown Verified 03/31/21 17:41 sucralfate Allergy Unknown Unknown Verified 03/31/21 17:41 Vqihmvc-[id number]-Jpo Reductase AdvReac Intermediate Diarrhea Verified 03/31/21 17:41 Inhibitor amoxicillin AdvReac Mild DIARRHEA Verified 03/31/21 17:41 clavulanic acid AdvReac Mild DIARRHEA Verified 03/31/21 17:41 hydrocodone AdvReac Mild "dont like Verified 03/31/21 17:41 how it makes me feel" Home Medications Medication Instructions Recorded Confirmed Type dexlansoprazole 60 mg PO HS 01/01/19 03/31/21 History lamotrigine 150 mg PO QAM 01/01/19 03/31/21 History nitroglycerin [Nitrostat] 0.4 mg SUBLINGUAL UD PRN 01/01/19 03/31/21 History quetiapine 150 mg PO HS 01/01/19 03/31/21 History roflumilast 500 mcg PO QAM 01/01/19 03/31/21 History Oxygen Home #1 ea 07/21/20 03/23/21 History cholecalciferol (vitamin D3) 25 25 mcg PO DAILY 01/11/21 03/31/21 History mcg (1,000 unit) capsule cyanocobalamin (vitamin B-12) 5,000 mcg PO DAILY 01/11/21 03/31/21 History 5,000 mcg capsule ipratropium 20 mcg-albuterol 100 2 puff INHALATION Q6H PRN g 01/11/21 03/31/21 History mcg/actuation mist for inhalation rosuvastatin 10 mg tablet 10 mg PO HS 01/11/21 03/31/21 History aspirin 81 mg PO BID 39 Days #78 tab 03/11/21 03/31/21 Rx ferrous gluconate 324 mg PO BIDM #60 tab 03/11/21 03/31/21 Rx nebivolol [Bystolic] 10 mg PO DAILY #30 tab 03/11/21 03/31/21 Rx ondansetron HCl [Zofran] 4 mg PO Q8H PRN #6 tab 03/11/21 03/31/21 Rx oxycodone 5 - 10 mg PO Q6 PRN #10 tab 03/11/21 03/31/21 Rx pregabalin 75 mg PO HS #30 cap 03/11/21 03/31/21 Rx acetaminophen 1,000 mg PO Q8 PRN 03/31/21 03/31/21 History Patient History Medical History Anemia REASON FOR COLONOSCOPY 07/2019 Bipolar 1 disorder Breast cancer (08/23/14) "Abnormal bilateral mammogram Status post core needle biopsy 08/23/2014 revealing intraductal papilloma on the left Right breast showed invasive ductal carcinoma Status post right lumpectomy and sentinel lymph node biopsy 10/08/2014 Stage [id number] Status post completion of radiation therapy 12/24/2014 utilizing hypo- fractionation received 5000 cGy" Breast cancer, right 2013--stage 1--lumpectomy and radiation CAD (coronary artery disease) Change in vision Chronic obstructive pulmonary disease inhaler daily Degenerative joint disease Depression Fall GERD (gastroesophageal reflux disease) History of colon polyps Hyperlipidemia Hypertension Hypothyroidism Medical marijuana use Myocardial Infarction "silent" in --follows with Dr. Gibbs On home oxygen therapy 2L N/C at hs Pancreatitis hx of Papilloma of breast left Sleep apnea Temporal arteritis Unstable angina Unstable angina Surgical History History of bilateral cataract extraction History of bilateral tubal ligation History of breast surgery removal of papilloma of left breast History of cardiac cath x3--last ---no stents History of cholecystectomy History of colonoscopy History of esophagogastroduodenoscopy (EGD) History of lumpectomy of right breast History of right breast biopsy malignant History of tooth extraction all teeth removed History of total hysterectomy with bilateral salpingo-oophorectomy (BSO) Family History Grandfather (Paternal) Family history of diabetes mellitus Other No family history of adverse response to anesthesia Social History Smoking Status: Former smoker Cigarettes Per Day: 20 a day; Second Hand Exposure: No; Do You Dip or Chew Tobacco: No; Tobacco Cessation Education Requested by Patient: No Hx Alcohol Use: No Hx Substance Use: No Preferred Language: Danish Communication Ability: Effective Welding Specialist Required: No Beliefs That Will Affect Care: None Current Living Situation: Spouse Other Information That Helps Us Care for You: No Feels Safe at Home: Yes Safety Concerns: Feels Safe At This Time Assistive Devices: Walker Review of Systems Review of Systems: All systems reviewed & are unremarkable except as noted in HPI & below Physical Exam Constitutional: WD/WN, vitals as above Eyes: PERRL, conjunctivae normal, anicteric sclerae ENMT: external ear and nose normal, oropharynx normal Neck: normal visual inspection and trachea midline Respiratory: clear, decreased breath sounds, nl effort. Cardiovascular: RRR, no murmur, no edema Gastrointestinal (Abdomen): normal bowel sounds, soft, nontender, no hepatosplenomegaly Skin: normal turgor; no jaundice Neurologic: PERRL, EOMI, accommodation nl, no face palsy, no dysarthria Psychiatric: A+Ox3, euthymic affect Results & Data ([facility]) Vital Signs (Past 12 Hours) Vital Signs Temp Pulse Pulse Resp BP Pulse Ox 04/01/21 15:47 36.8 C 87 20 137/68 97 04/01/21 14:45 75 04/01/21 13:19 36.9 C 96 H 19 135/67 93 04/01/21 07:45 36.6 C 85 19 146/74 H 94 04/01/21 07:00 88
--- NOTE | 2021-04-01 17:15 | Billing Data ---
Date of Service April 01, 2021 Coding Level of Care Code 93850 Subseq Hosp Care Lvl 3
[2021-04-01] MEDS: ONDANSETRON INJ 2 MG/ML 2 ML VIAL IV PRN (17:49)
[2021-04-01] MEDS: ROSUVASTATIN CALCIUM 10 MG TAB PO SCH (19:38)
--- NOTE | 2021-04-01 19:42 | Billing Data ---
Date of Service April 01, 2021 Coding Level of Care Code 51357 Initial Inpt Care Lvl 3
[2021-04-02 05:46] LABS: Basophils # (auto) 0.03 K/uL (0-0.2); Basophils % (auto) 0.7 %; Eosinophils # (auto) 0.33 K/uL (0-0.5); Eosinophils % (auto) 7.4 %; Hemoglobin 7.7 g/dL (12.0-16.0); Immature Granulocytes # (auto) 0.01 K/uL (0.00-0.02); Immature Granulocytes % (auto) 0.2 %; Lymphocytes % (auto) 31.4 %; Mean Corpuscular Hemoglobin 30.8 pg (25-34); Mean Corpuscular Hgb Conc 30.8 g/dL (32-36); Monocytes # (auto) 0.54 K/uL (0.11-0.59); Monocytes % (auto) 12.1 %; Neutrophils # (auto) 2.15 K/uL (1.4-6.5); Neutrophils % (auto) 48.2 %; Platelet Count 264 K/uL (130-400); RDW Coefficient of Variation 18.5 % (11.5-14.5); RDW Standard Deviation 67.7 fL (36.4-46.3); White Blood Count 4.46 K/uL (4.8-10.8)
[2021-04-02 05:55] LABS: INR 1.2 (0.9-1.1); Prothrombin Time 11.6 Seconds (9.0-12.0)
[2021-04-02 06:08] LABS: Anisocytosis Present; Polychromasia 1+
[2021-04-02 06:12] LABS: Albumin Level 2.5 gm/dl (3.4-5.0); BUN Creatinine Ratio 14.2 (10-20); Calcium 8.4 mg/dl (8.5-10.1); Creatinine Clr Calc Pharmacy 57.9 ml/min; Est GFR (African American) 91.4 ml/min; Est GFR (Non-African American) 78.9 ml/min; Potassium 3.6 mmol/L (3.5-5.1)
[2021-04-02 06:14] LABS: Albumin Globulin Ratio 0.8 (0.9-2); Bilirubin,Total 0.5 mg/dl (0.2-1); Globulin 3.2 gm/dl (2.5-4.0); Total Protein 5.7 gm/dl (6.4-8.2)
[2021-04-02] MEDS: ACETAMINOPHEN 325 MG TAB PO PRN ×2 (06:47→14:04)
[2021-04-02] MEDS: ONDANSETRON INJ 2 MG/ML 2 ML VIAL IV PRN (06:47)
--- NOTE | 2021-04-02 06:55 | Hospitalist Progress Note ---
Date of Service April 02, 2021 Assessment & Plan (1) Diarrhea: Popeye Collier is a 80 y/o F w/ CAD, COPD, GERD, htn, hld, hypothyroid, TIMOTHY, and L DVT s/p hip fx repair in late February 2021w/ subsequent LLE DVT who presents w/ ~2.5 wks of black-colored loose stools w/ several days of watery diarrhea. She had been on Lovenox + Coumadin until 2-3 days prior to admission. Stable. presumed melena - black, different from usual dark stools from iron supp, loose stools, h emmocult +. downtrending Hb; suspect UGIB - GI consulted, elective upper endoscopy planned for 04/03/21 - diarrhea may also be from infectious etiology. cdif neg. stool studies pending, but prelim neg. 04/02 reordered cdif and stool studies because patient's diarrhea worsened, 10 episodes in AM. - suspicion for LGIB lower at this time, no BRBPR. 2018 colonoscopy no LGIB. - hold anticoag, asa iron deficiency anemia - Hgb 8.1 on admission. MCV 97. Normocytic. 7.7 on 04/01 and 04/02 - patient is hemodynamically stable - follow CBC - consider transfuse if < 8 given history of CAD. 04/01 and 04/02 deferred transfusion, but will continue to monitor. 04/02 patient's reported fatigue was noted, but overall clinically did not appear to be symptomatic from anemia. No m ucosal pallor, dizziness. She overall was feeling down from anxiety symptoms. Anxiety and depression - worsened anxiety on 04/02; patient was upset about being in the hospital and had general worry - hydroxyzine 25 mg PO x 1 on 04/02 w/ good result for patient's exacerbation of anxiety - defer restarting home venlafaxine 150 because per [facility] chart records, last time it showed in her med list was 06/2020. patient likely had not been given this medication at [facility] - will defer to patient's PCP to restart in the outpatient setting Perianal irritation and hemorrhoids - per nursing report, likely 2/2 diarrhea - prescribed topical creams and anusol cream DVT - occurred in post-operative period after recent L hip fracture repair (per records) - patient was placed on both Lovenox and Coumadin (presumably, patient was bridged with Lovenox to Coumadin, although she reports using the two concurrently for much of the treatment course). It is also unclear why patient was placed on Coumadin over a DOAC for management of her DVT - anticoagulation was discontinued 2-3 days prior to admission - hold home daily baby asa in setting of possible GI bleed. - 04/01 venous doppler of BLE was negative and did not show DVT supratherapeutic INR - INR 3.6 on admission, 1.2 on 04/02 - Goal INR 2.0-2.5 - Coumadin d/c on 03/29. 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 3 times daily for elevated blood pressure COPD - Borderline with PFT's - Patient does not take her inhalers daily because they make her jittery, she takes them as she feels she needs the - Continue Roflumilast, Albuterol/ipratropium. Bipolar I - continue home lamotrigine and quetiapaine Diet: Clears. NPO +IVF after midnight GI ppx: Protonix 40 IV BID Dispo: Med/Surg with tele Code: DNR/DNI (2) Heme + stool: (3) DVT (deep venous thrombosis): (4) Supratherapeutic INR: (5) Iron (Fe) deficiency anemia: (6) CAD (coronary artery disease): (7) COPD (chronic obstructive pulmonary disease): (8) Bipolar 1 disorder: (9) Stool color black: (10) Watery diarrhea: Admission and Anticipated Discharge Date Admission Date: March 31, 2021 Supervising Physician Co-Signing Physician Notes I personally examined the patient and verified all schulte points of history and exa m, discussed case, and agree with decision making with Dr Billings lots of diarrhea today, bottom is sore. scared. Vitals noted, in general she is awake and alert pleasant but visibly anxious. HEENT normocephalic atraumatic mucous membranes moist. Breathing unlabored no accessory muscle use good effort. Skin shows no rashes no pallor or icterus. no focal neuro deficits. Melena/diarrhea with acute blood loss anemiain the context of anticoagulation for DVT. Biggest concern would be any sort of upper GI source like peptic ulcer disease. PPI, hold anticoagulation for now. Anticipate EGD tomorrow. infectious diarrhea also a possibility - stool studies pending. DVThas been treated for a few weeks, for now anticoagulation held due to bleeding, if anticoagulation needs to be held prolonged, then would consider IVC filter, but hopefully can just resume anticoagulation in the near future. fortunatley venous doppler yesterday did not show radiographically evident DVT, so fairly low risk to hold for now - - would probably resume to complete 3 months of treatment just to protect against recurrence, though - since she had hip fx as risk, and (+) DVT at [facility]. Otherwise as above Subjective Moodwise, patient feels down overall. Food tastes metallic, attributes to her meds. Some constipation now. Slept well. Some nausea. Feels weaker today. + fatigue. Patient states she was on Venlafaxine 150 at home. This is not on her meds list. However, she is unsure if she had received any while at [facility]. Review of Systems Review of Systems: Constitutional: Denies fever, chills. + fatigue Eyes: Denies blurry vision, vision changes ENT: Denies sore throat, Cardiovascular: Denies chest pain, palpitations Respiratory: Denies shortness of breath Gastrointestinal: Denies abdominal pain, vomiting, diarrhea Genitourinary: Denies urinary symptoms including dysuria Musculoskeletal: Denies, muscle aches/pain, joint aches/pain Neurological: Denies headache, numbness, tingling, focal weakness. No dizziness. Psych. + anxiety Physical Exam Physical Exam: General: Grossly A&O. NAD. Cooperative. HEENT: Atraumatic, normocephalic. EOMI. No mucosal pallor Pulm: CTAB. -wheezes, -rales, -rhonchi. No respiratory distress. Cardiac: RRR, -rg. 3/6 aortic systolic murmur. Radial pulses intact and symmetrical. Mild puffy ankles, no pitting edema. mild ttp. Abdominal: Nontender, nondistended, soft. Psych: Depressed affect. Results & Data Results & Data ([facility]) Vital Signs (Past 12 Hours) Vital Signs Temp Pulse Pulse Resp BP Pulse Ox 04/02/21 03:28 36.4 C L 85 18 161/75 H 98 04/02/21 00:30 80 04/01/21 22:50 36.6 C 80 18 168/74 H 99 04/01/21 19:12 36.7 C 83 18 166/77 H 97 Resident Activity Tracking Resident Involvement: Resident Care Provided Care Provided: Adult Hospital Medicine (1) CAD (coronary artery disease) Associated angina: without angina Coronary Disease-Associated Artery/Lesion type: [place] artery [place] vs. transplanted heart: [place] heart Qualified Code(s): I25.10 - Atherosclerotic heart disease of [place] coronary artery without angina pectoris (2) Iron (Fe) deficiency anemia Iron deficiency anemia type: unspecified iron deficiency Qualified Code(s): D50.9 - Iron deficiency anemia, unspecified (3) COPD (chronic obstructive pulmonary disease) COPD type: unspecified COPD Qualified Code(s): J44.9 - Chronic obstructive pulmonary disease, unspecified
[2021-04-02] MEDS: METOPROLOL TARTRATE 25 MG TAB PO SCH ×3 (08:12→20:13)
[2021-04-02] MEDS: ROFLUMILAST 500 MCG TAB PO SCH (08:12)
[2021-04-02] MEDS: lamoTRIgine 100 MG TAB PO SCH (08:12)
[2021-04-02] MEDS: PANTOprazole 40 MG in SYRINGE 0 ML IV SCH (08:12)
[2021-04-02 11:56] LABS: Basophils # (auto) 0.02 K/uL (0-0.2); Basophils % (auto) 0.4 %; Eosinophils # (auto) 0.28 K/uL (0-0.5); Eosinophils % (auto) 5.2 %; Hematocrit (blood only) 26.4 % (37-47); Hemoglobin 8.2 g/dL (12.0-16.0); Immature Granulocytes # (auto) 0.02 K/uL (0.00-0.02); Immature Granulocytes % (auto) 0.4 %; Lymphocytes # (auto) 1.41 K/uL (1.2-3.4); Lymphocytes % (auto) 26.2 %; Mean Corpuscular Hemoglobin 30.8 pg (25-34); Mean Corpuscular Volume 99.2 fL (80-100); Monocytes # (auto) 0.74 K/uL (0.11-0.59); Monocytes % (auto) 13.7 %; Neutrophils # (auto) 2.92 K/uL (1.4-6.5); Neutrophils % (auto) 54.1 %; Platelet Count 269 K/uL (130-400); RDW Coefficient of Variation 18.3 % (11.5-14.5); RDW Standard Deviation 65.8 fL (36.4-46.3); Red Blood Count 2.66 M/uL (4.2-5.4); White Blood Count 5.39 K/uL (4.8-10.8)
[2021-04-02 12:05] LABS: Mean Corpuscular Hgb Conc 31.1 g/dL (32-36)
[2021-04-02] MEDS ORDERED: hydrOXYzine HCl 25 MG TAB PO STA (12:38)
[2021-04-02] MEDS ORDERED: HYDROCORTISONE HC 2.5% CRM 30GM TUBE EXT PRN (16:03)
--- NOTE | 2021-04-02 16:04 | Billing Data ---
Date of Service April 02, 2021 Coding Level of Care Code 35941 Subseq Hosp Care Lvl 3
--- NOTE | 2021-04-02 16:08 | Gastroenterology Progress Note ---
Date of Service April 02, 2021 Assessment & Plan (1) Heme + stool: melena--- For both above continue PPI, hold anticoagulation and ASA. Stools brown now. EGD tomorrow. diarrhea--Cdiff neg and stool cx neg so far. ? new meds. blood loss anemia--stable-----follow H and H and transfuse prn. Admission and Anticipated Discharge Date Admission Date: March 31, 2021 Subjective CC loose stools, hemorrhoid pain HPI Pt states hemorroid pain from diarrhea but no abd pain. She thinks diarrhea somewhat improved, overall, howeer. Stools brown. Hgb stable at 8.1 INR normal. Physical Exam Gastrointestinal (Abdomen): normal bowel sounds, soft, nontender, no hepatosplenomegaly Results & Data ([facility]) Vital Signs (Past 12 Hours) Vital Signs Temp Pulse Pulse Resp BP Pulse Ox 04/02/21 16:01 36.8 C 77 20 164/80 H 96 04/02/21 15:14 88 04/02/21 11:30 37.1 C 83 19 179/76 H 94 04/02/21 08:08 36.8 C 86 20 164/79 H 93 04/02/21 07:21 90
[2021-04-02] MEDS ORDERED: KETOROLAC TROMETHAMINE 15 MG/ML VIAL IV ONE (20:00)
[2021-04-02] MEDS: PREGABALIN 75 MG CAP PO SCH (20:13)
[2021-04-02] MEDS: ROSUVASTATIN CALCIUM 10 MG TAB PO SCH (20:14)
[2021-04-03] MEDS: SODIUM CHLORIDE 0.9% 1000ML 1,000 ML IV SCH ×2 (00:01→10:30)
[2021-04-03 00:26] LABS: Appearance Urine Clear (Clear); Bacteria Urine Automated Negative (Negative); Bilirubin Urine Negative (Negative); Blood Urine Negative (Negative); Color Urine Yellow; Epithelial Cell Urine Auto >30 /lpf (0-5); Glucose Urine UA Negative (Negative); Ketones Urine 3+ (Negative); Leukocyte Esterase Urine Trace (Negative); Nitrite Urine Negative (Negative); Protein Urine Negative (Negative); Urobilinogen Urine Negative (Negative); pH Urine 5.5 (4.5-7.5)
[2021-04-03 06:52] LABS: Basophils # (auto) 0.02 K/uL (0-0.2); Basophils % (auto) 0.5 %; Eosinophils # (auto) 0.36 K/uL (0-0.5); Eosinophils % (auto) 9.2 %; Hematocrit (blood only) 24.5 % (37-47); Hemoglobin 7.8 g/dL (12.0-16.0); Immature Granulocytes # (auto) 0.01 K/uL (0.00-0.02); Immature Granulocytes % (auto) 0.3 %; Lymphocytes # (auto) 1.33 K/uL (1.2-3.4); Lymphocytes % (auto) 33.8 %; Mean Corpuscular Hemoglobin 30.6 pg (25-34); Mean Corpuscular Hgb Conc 31.8 g/dL (32-36); Mean Corpuscular Volume 96.1 fL (80-100); Monocytes # (auto) 0.51 K/uL (0.11-0.59); Neutrophils % (auto) 43.2 %; Platelet Count 266 K/uL (130-400); Red Blood Count 2.55 M/uL (4.2-5.4); White Blood Count 3.93 K/uL (4.8-10.8)
[2021-04-03 07:00] LABS: INR 1.1 (0.9-1.1); Prothrombin Time 11.2 Seconds (9.0-12.0)
[2021-04-03 07:28] LABS: Albumin Level 2.4 gm/dl (3.4-5.0); BUN Creatinine Ratio 10.5 (10-20); Calcium 8.9 mg/dl (8.5-10.1); Creatinine Clr Calc Pharmacy 63.2 ml/min; Est GFR (African American) 97.6 ml/min; Est GFR (Non-African American) 84.2 ml/min; Potassium 3.3 mmol/L (3.5-5.1)
[2021-04-03 07:31] LABS: Albumin Globulin Ratio 0.7 (0.9-2); Bilirubin,Total 0.5 mg/dl (0.2-1); Globulin 3.3 gm/dl (2.5-4.0); Total Protein 5.7 gm/dl (6.4-8.2)
[2021-04-03] MEDS: METOPROLOL TARTRATE 25 MG TAB PO SCH ×3 (07:43→19:51)
[2021-04-03] MEDS: PANTOprazole 40 MG in SYRINGE 0 ML IV SCH (07:43)
[2021-04-03] MEDS: lamoTRIgine 100 MG TAB PO SCH (07:43)
[2021-04-03] MEDS: ROFLUMILAST 500 MCG TAB PO SCH (07:43)
--- NOTE | 2021-04-03 08:59 | Gastroenterology Progress Note ---
Date of Service April 03, 2021 Assessment & Plan (1) Heme + stool: melena: continue PPI, hold anticoagulation and ASA. Stools brown now. Plan is EGD today. diarrhea: Cdiff neg and stool cx neg. ? new meds. blood loss anemia: stable - follow H and H and transfuse prn. Please refer to supervising physician addendum for further recommendations. Admission and Anticipated Discharge Date Admission Date: March 31, 2021 Subjective CC loose stools HPI the patient reports that she had broke her hip in February. She had been at rehab for PT/OT. She had returned home and developed black loose stools. Was on Coumadin (now held). The patient reports of abdominal cramping this morning and feels as though she needs to have a bowel movement. She states that otherwise she has been feeling well. Denies any nausea or vomiting. Stools have been brown in color. Hgb 7.8, INR 1.1. Plan is EGD today. Review of Systems Review of Systems: All systems reviewed & are unremarkable except as noted in Subjective Physical Exam Gastrointestinal (Abdomen): Inspection/Auscultation: abdomen normal to inspection and normal bowel sounds; abdomen not distended Percussion/Palpation: + abdomen tender and abdomen soft; no guarding and abdomen not rigid Skin: + ecchymosis (bilateral lower abdomen) Results & Data ([facility]) Vital Signs (Past 12 Hours) Vital Signs Temp Pulse Pulse Resp BP BP Pulse Ox 04/03/21 07:40 36.4 C L 83 16 163/74 H 99 04/03/21 03:33 36.4 C L 81 18 161/78 H 97 04/02/21 23:07 78 04/02/21 22:35 36.3 C L 82 18 170/73 H 98 Laboratory Results - last 24 hr 04/02/21 04/03/21 04/03/21 11:46 00:12 06:08 WBC 5.39 3.93 L RBC 2.66 L 2.55 L Hgb 8.2 L 7.8 L Hct 26.4 L 24.5 L MCV 99.2 96.1 MCH 30.8 30.6 MCHC 31.1 L 31.8 L RDW Std Deviation 65.8 H 62.0 H RDW Coeff of Gino 18.3 H 18.0 H Plt Count 269 266 MPV 9.0 9.0 Immature Gran % (Auto) 0.4 0.3 Neut % (Auto) 54.1 43.2 Lymph % (Auto) 26.2 33.8 [place] % (Auto) 13.7 13.0 Eos % (Auto) 5.2 9.2 Baso % (Auto) 0.4 0.5 Neut # (Auto) 2.92 1.70 Lymph # (Auto) 1.41 1.33 [place] # (Auto) 0.74 H 0.51 Eos # (Auto) 0.28 0.36 Baso # (Auto) 0.02 0.02 Immature Gran # (Auto) 0.02 0.01 PT INR Sodium Potassium Chloride Carbon Dioxide Anion Gap BUN Creatinine Est Cr Clr Drug Dosing Est GFR ( Amer) Est GFR (Non-Af Amer) BUN/Creatinine Ratio Glucose Calcium Total Bilirubin AST ALT Alkaline Phosphatase Total Protein Albumin Globulin Albumin/Globulin Ratio Urine Color Yellow Urine Appearance Clear Urine pH 5.5 Ur Specific [place] 1.020 Urine Protein Negative Urine Glucose (UA) Negative Urine Ketones 3+ H Urine Blood Negative Urine Nitrite Negative Urine Bilirubin Negative Urine Urobilinogen Negative Ur Leukocyte Esterase Trace H Urine WBC (Auto) 5-10 H Urine RBC (Auto) 5-10 H U Hyaline Cast (Auto) 1-5 U Epithel Cells (Auto) >30 H Urine Bacteria (Auto) Negative 04/03/21 04/03/21 06:08 06:08 WBC RBC Hgb Hct MCV MCH MCHC RDW Std Deviation RDW Coeff of [place] Plt Count MPV Immature Gran % (Auto) Neut % (Auto) Lymph % (Auto) [place] % (Auto) Eos % (Auto) Baso % (Auto) Neut # (Auto) Lymph # (Auto) [place] # (Auto) Eos # (Auto) Baso # (Auto) Immature Gran # (Auto) PT 11.2 INR 1.1 Sodium 144 Potassium 3.3 L Chloride 112 H Carbon Dioxide 23 Anion Gap 9.0 BUN 7 Creatinine 0.67 Est Cr Clr Drug Dosing 63.2 Est GFR ( Amer) 97.6 Est GFR (Non-Af Amer) 84.2 BUN/Creatinine Ratio 10.5 Glucose 72 Calcium 8.9 Total Bilirubin 0.5 AST 14 L ALT 9 L Alkaline Phosphatase 95 Total Protein 5.7 L Albumin 2.4 L Globulin 3.3 Albumin/Globulin Ratio 0.7 L Urine Color Urine Appearance Urine pH Ur Specific [place] Urine Protein Urine Glucose (UA) Urine Ketones Urine Blood Urine Nitrite Urine Bilirubin Urine Urobilinogen Ur Leukocyte Esterase Urine WBC (Auto) Urine RBC (Auto) U Hyaline Cast (Auto) U Epithel Cells (Auto) Urine Bacteria (Auto)
--- NOTE | 2021-04-03 12:36 | Anesthesiology Consultation ---
Date of Service April 03, 2021 Assessment & Plan (1) Encounter for pre-operative examination: Chart Review Chart Review: Acceptable Risk for Surgery History Surgery Operation Date: 04/03/21 16:30 Proposed Procedures p Esophagogastroduodenoscopy Dr Jose Garcia Height/Weight Height: 5 ft Weight: 76.4 kg Allergies Allergy/AdvReac Type Severity Reaction Status Date / Time metoclopramide Allergy Intermediate ESSENTIAL Verified 03/31/21 17:41 TREMORS clopidogrel Allergy Mild HIVES Verified 03/31/21 17:41 diazepam Allergy Mild DEPRESSION Verified 03/31/21 17:41 diltiazem Allergy Mild Light Verified 03/31/21 17:41 headed erythromycin base Allergy Mild EES, TAKES Verified 03/31/21 17:41 Z-PACKS W/O RXN gabapentin Allergy Mild States Verified 03/31/21 17:41 hands catch fire latex Allergy Mild rips skin Verified 03/31/21 17:41 off lisinopril Allergy Mild COUGH Verified 03/31/21 17:41 losartan Allergy Mild HIVES Verified 03/31/21 17:41 micafungin Allergy Mild rash Verified 03/31/21 17:41 oxycodone Allergy Mild INC. Verified 03/31/21 17:41 DEPRESSION Penicillins Allergy Mild Diarrhea Verified 03/31/21 17:41 promethazine Allergy Mild TROUBLE Verified 03/31/21 17:41 FOCUSING SPEAKING AT HIGHER DOSES Sulfa (Sulfonamide Allergy Mild SKIN Verified 03/31/21 17:41 Antibiotics) BECOMES PHOTOSENSITIVE AND BECOMES RED bupropion Allergy Unknown unknown Verified 03/31/21 17:41 dicyclomine Allergy Unknown Unknown Verified 03/31/21 17:41 potassium chloride Allergy Unknown Unknown Verified 03/31/21 17:41 sucralfate Allergy Unknown Unknown Verified 03/31/21 17:41 Iorrqyi-Ypy-Zao Reductase AdvReac Intermediate Diarrhea Verified 03/31/21 17:41 Inhibitor amoxicillin AdvReac Mild DIARRHEA Verified 03/31/21 17:41 clavulanic acid AdvReac Mild DIARRHEA Verified 03/31/21 17:41 hydrocodone AdvReac Mild "dont like Verified 03/31/21 17:41 how it makes me feel" Medications Home Medications Medication Instructions Recorded Confirmed Last Taken dexlansoprazole 60 mg PO HS 01/01/19 03/31/21 03/30/21 lamotrigine 150 mg PO QAM 01/01/19 03/31/21 03/31/21 nitroglycerin [Nitrostat] 0.4 mg SUBLINGUAL UD PRN 01/01/19 03/31/21 Unknown quetiapine 150 mg PO HS 01/01/19 03/31/21 03/30/21 roflumilast 500 mcg PO QAM 01/01/19 03/31/21 03/31/21 Oxygen Home #1 ea 07/21/20 03/23/21 Unknown cholecalciferol (vitamin D3) 25 25 mcg PO DAILY 01/11/21 03/31/21 03/31/21 mcg (1,000 unit) capsule cyanocobalamin (vitamin B-12) 5,000 mcg PO DAILY 01/11/21 03/31/21 03/31/21 5,000 mcg capsule ipratropium 20 mcg-albuterol 100 2 puff INHALATION Q6H PRN g 01/11/21 03/31/21 Unknown mcg/actuation mist for inhalation rosuvastatin 10 mg tablet 10 mg PO HS 01/11/21 03/31/21 03/30/21 aspirin 81 mg PO BID 39 Days #78 tab 03/11/21 03/31/21 03/31/21 08:00 ferrous gluconate 324 mg PO BIDM #60 tab 03/11/21 03/31/21 03/31/21 08:00 nebivolol [Bystolic] 10 mg PO DAILY #30 tab 03/11/21 03/31/21 03/31/21 ondansetron HCl [Zofran] 4 mg PO Q8H PRN #6 tab 03/11/21 03/31/21 Unknown oxycodone 5 - 10 mg PO Q6 PRN #10 tab 03/11/21 03/31/21 Unknown pregabalin 75 mg PO HS #30 cap 03/11/21 03/31/21 03/30/21 acetaminophen 1,000 mg PO Q8 PRN 03/31/21 03/31/21 Unknown Active Medications Generic Name Dose Route Start Last Admin Trade Name Freq PRN Reason Stop Dose Admin Acetaminophen 650 mg 04/01/21 12:51 04/02/21 14:04 Acetaminophen 325 Mg Tab PO 05/01/21 12:50 650 mg Q6H PRN Administration Pain Ferrous Gluconate 324 mg 04/01/21 08:00 04/01/21 07:57 Ferrous Gluconate 324 Mg Tab PO 05/01/21 07:59 324 mg BIDM JANINE Administration Pantoprazole Sodium 40 mg/ 10 mls @ 5 mls/min 04/01/21 13:00 04/03/21 07:43 Syringe IV 05/01/21 12:59 5 mls/min QAM JANINE Administration Sodium Chloride 1,000 mls @ 100 mls/hr 04/03/21 00:05 04/03/21 12:21 Nss 1000ml IV 04/03/21 20:04 0 mls/hr .Q10H JANINE Infusion Lamotrigine 150 mg 04/01/21 09:00 04/03/21 07:43 Lamotrigine 100 Mg Tab PO 05/01/21 08:59 150 mg QAM JANINE Administration Metoprolol Tartrate 25 mg 04/01/21 09:00 04/03/21 07:43 Metoprolol Tartrate 25 Mg Tab PO 05/01/21 08:59 25 mg TID JANINE Administration Ondansetron HCl 4 mg 03/31/21 22:04 04/02/21 06:47 Ondansetron Inj 2 Mg/Ml 2 Ml Vial IV 04/30/21 22:03 4 mg Q6H PRN Administration Nausea Pregabalin 75 mg 04/02/21 21:00 04/02/21 20:13 Pregabalin 75 Mg Cap PO 05/02/21 20:59 75 mg HS JANINE Administration Quetiapine Fumarate 150 mg 03/31/21 22:04 04/02/21 20:13 Quetiapine Fumarate 150 Mg Tabcr PO 04/30/21 22:03 150 mg HS JANINE Administration Roflumilast 500 mcg 04/01/21 09:00 04/03/21 07:43 Roflumilast 500 Mcg Tab PO 05/01/21 08:59 500 mcg QAM JANINE Administration Rosuvastatin Calcium 10 mg 03/31/21 22:04 04/02/21 20:14 Rosuvastatin Calcium 10 Mg Tab PO 04/30/21 22:03 10 mg HS JANINE Administration Past Medical History Medical History Anemia REASON FOR COLONOSCOPY 07/2019 Bipolar 1 disorder Breast cancer (08/23/14) "Abnormal bilateral mammogram Status post core needle biopsy 08/23/2014 revealing intraductal papilloma on the left Right breast showed invasive ductal carcinoma Status post right lumpectomy and sentinel lymph node biopsy 10/08/2014 Stage [id number] Status post completion of radiation therapy 12/24/2014 utilizing hypo- fractionation received 5000 cGy" Breast cancer, right 2014--stage 1--lumpectomy and radiation CAD (coronary artery disease) Change in vision Chronic obstructive pulmonary disease inhaler daily Degenerative joint disease Depression Fall GERD (gastroesophageal reflux disease) History of colon polyps Hyperlipidemia Hypertension Hypothyroidism Medical marijuana use Myocardial Infarction "silent" in s--follows with Dr. Gibbs On home oxygen therapy 2L N/C at hs Pancreatitis hx of Papilloma of breast left Sleep apnea Temporal arteritis Unstable angina Unstable angina Past Family History Family History Grandfather (Paternal) Family history of diabetes mellitus Other No family history of adverse response to anesthesia Past Surgical History Surgical History History of bilateral cataract extraction History of bilateral tubal ligation History of breast surgery removal of papilloma of left breast History of cardiac cath x3--last ---no stents History of cholecystectomy History of colonoscopy History of esophagogastroduodenoscopy (EGD) History of lumpectomy of right breast History of right breast biopsy malignant History of tooth extraction all teeth removed History of total hysterectomy with bilateral salpingo-oophorectomy (BSO) Social History Smoking Status: Former smoker tobacco type: cigarettes Smoking cigarettes per day: 20 a day Do You Dip or Chew Tobacco: No Hx Alcohol Use: No Alcohol type: wine alcohol intake frequency: holidays/special occasions only Hx Substance Use: No substance use type: does not use Last Used Substance Other:: ues 3x a week Physical Exam Vital Signs Last Vital Signs Temp 36.7 C 04/03/21 12:00 Pulse 87 04/03/21 12:00 Resp 18 04/03/21 12:00 BP 148/82 H 04/03/21 12:00 Pulse Ox 94 04/03/21 12:00 Testing Laboratory Results 04/03/21 06:08 04/03/21 06:08 PT 11.2 Seconds (9.0-12.0) 04/03/21 06:08 INR 1.1 (0.9-1.1) 04/03/21 06:08 Urine Color Yellow 04/03/21 00:12 Urine Appearance Clear (Clear) 04/03/21 00:12 Urine pH 5.5 (4.5-7.5) 04/03/21 00:12 Ur Specific [place] 1.020 (1.000-1.030) 04/03/21 00:12 Urine Protein Negative (Negative) 04/03/21 00:12 Urine Glucose (UA) Negative (Negative) 04/03/21 00:12 Urine Ketones 3+ (Negative) H 04/03/21 00:12 Urine Nitrite Negative (Negative) 04/03/21 00:12 Ur Leukocyte Esterase Trace (Negative) H 04/03/21 00:12 Urine WBC (Auto) 5-10 /hpf (0-5) H 04/03/21 00:12 Urine RBC (Auto) 5-10 /hpf (0-4) H 04/03/21 00:12 U Hyaline Cast (Auto) 1-5 /lpf (0-5) 04/03/21 00:12 U Epithel Cells (Auto) >30 /lpf (0-5) H 04/03/21 00:12 Urine Bacteria (Auto) Negative (Negative) 04/03/21 00:12 Blood Type B Positive 03/31/21 19:46 Antibody Screen NEGATIVE 03/31/21 19:46 03/31/21 18:55 WBC Smear - Final Stool Escherichia coli Shiga Toxins Test - Final Stool Culture - Final No Salmonella isolated, No Shigella isolated, No Campylobacter jejuni isolated. Electrocardiogram Date: 03/31/21 Findings: + NSR @ (16)
[2021-04-03] MEDS ORDERED: LIDOCAINE 2% 2 ML VIAL/AMP(20MG/ML) INFIL ONE (12:40)
[2021-04-03] MEDS ORDERED: PROPOFOL IV EMULSION 10 MG/ML 20 ML VIAL IV ONE (12:40)
--- NOTE | 2021-04-03 13:06 | Hospitalist Progress Note ---
Date of Service April 03, 2021 Assessment & Plan (1) Diarrhea: Popeye Collier is a 80 y/o F w/ CAD, COPD, GERD, HTN, HLD, hypothyroidism, TIMOTHY, and recent LLE DVT s/p L MANAN (was on both Lovenox and Coumadin) in February 2021 who presented for ~2.5 wks of melena and voluminous, watery diarrhea. She is hemodynamically stable. Presumed Melena -- - In setting of hemeoccult (+), frequent loose stools, lower Hgb, and being on 2 different forms of anticoagulation, c/f black stools may be acute GIB - From a visual perspective, noted that patient does take iron supplement and her stools - Given melena and no BRBpR, lower suspicion this is marketing sales representative of a LGIB - GI consulted, elective upper endoscopy planned for 04/03/21 - - preliminary reports suggesting no significant abnormalities - Heme positive stools could be secondary to supratherapeutic INR/dual anticoagulation - appearance of stool may be attributable to p.o. iron supplementation - Convert to PO PPIs - Hold anticoagulation, ASA Diarrhea - Frequent, Voluminous -- decreasing in frequency - Thankfully decreasing in frequency since previously in her hospital course - Given that GIB now seems less likely (see above), suspect this may be secondary to acute gastroenteritis - Infectious work-up also largely unrevealing: - C. diff gene negative - Stool smear/culture: No WBCs. No shigatoxin. No salmonella, shigella, campylobacter. - Continue aggressive hydration, electrolyte repletion p.r.n. Iron Deficiency Anemia -- normocytic - Baseline Hgb on review does appear to be between 8 - 10, closer to 10 - d/c Hgb at 8.2 on 03/11 - Patient with long-standing h/o iron deficiency anemia - Iron studies in 02/2021 demonstrated low transferrin saturation, ferritin - Hgb on admission 8.1, MCV 97 - Consistently demonstrating stability now w/ Hgb 7.7 - 8.1 - Given presumed negative EGD, lower Hgb may just be marketing sales representative of [facility] - Transfuse Hgb < 8 and symptomatic -- trend - CBC qAM - Hold antiplatelet, anticoagulation as above while here -- can consider restarting on d/c, otherwise outlined below - Continue iron sulfate supplementation Anxiety and depression - worsened anxiety on 04/02; patient was upset about being in the hospital and had general worry - hydroxyzine 25 mg PO x 1 on 04/02 w/ good result for patient's exacerbation of anxiety - defer restarting home venlafaxine 150 because per [facility] chart records, last time it showed in her med list was 06/2020. patient likely had not been given this medication at [facility] - will defer to patient's PCP to restart in the outpatient setting Perianal irritation and hemorrhoids - per nursing report, likely 2/2 diarrhea - prescribed topical creams and anusol cream History of DVT - occurred in post-operative period after recent L hip fracture repair (per records) - patient was placed on both Lovenox and Coumadin (presumably, patient was bridged with Lovenox to Coumadin, although she reports using the two concurrently for much of the treatment course). - anticoagulation was discontinued 2-3 days prior to admission - unclear why Coumadin initiated vs. DOAC -- will investigate, consider starting on Eliquis at d/c if appropriate - hold home daily baby asa in setting of possible GI bleed until d/c - 04/01 venous doppler of BLE was negative and did not show DVT Supratherapeutic INR -- resolved - INR 3.6 on admission, 1.2 on 04/02 - 5mg Vit K given on admission due to possible concurrent GI bleed - Coumadin d/c on 03/29. 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 Bipolar I - continue home lamotrigine and quetiapaine Diet: Clears, progress as tolerated GI ppx: Protonix PO Dispo: Med/Surg Code: DNR/DNI (2) Heme + stool: (3) DVT (deep venous thrombosis): (4) Supratherapeutic INR: (5) Iron (Fe) deficiency anemia: (6) CAD (coronary artery disease): (7) COPD (chronic obstructive pulmonary disease): (8) Bipolar 1 disorder: (9) Stool color black: (10) Watery diarrhea: Admission and Anticipated Discharge Date Admission Date: March 31, 2021 Supervising Physician Co-Signing Physician Notes Patient seen and examined with PGY-1 Dr. Garcia. Agree with history, exam findings, assessment and plan of care as outlined. 80 year old female with hx of CAD, COPD, HTN, HLD, hypothyroid, TIMOTHY, provoked DVT admitted with melena. Stools are no longer dark. Feels well. Eager to do a trial of clears. Still with some loose stools. Typically uses Imodium for this at home. 1. Upper GI bleed. Continue PPI. EGD unremarkable. Restarting anticoagulationStart Eliquis. 2. Diarrhea. Infectious studies negative. Ok to start Imodium. 3. Iron deficiency anemia. Hgb 8.1. Seems to be near her baseline. 4. Anxiety, depression. Bipolar disorder. Continue home Lamictal and Seroquel. PRN hydroxyzine for acute anxiety. 5. DVT, provoked. Anticoagulation was discontinued several days prior to admission. See below. 6. Supratherapeutic INR. INR 3.6 on admission?1.1. S/p vitamin K on admission. Rather than restarting Coumadin, will start Eliquis for DVT treatment. 7. CAD. Multivessel. Holding ASA. Metoprolol (replacing home nebivolol) 8. COPD. Continue home roflumilast, duoneb. Subjective NAEO. Feeling well overall this morning. Stools are now much less dark and tarry, and more loose/brown - intermittent redness mixed in too. Last BMs were this morning - frequency/urgency has gone down. Didn't have any last night, which was a huge improvement for her. Still associated with cramping. Denies any extremely foul smell with BMs. Endorses good appetite. No nausea or vomiting. No CP/palpitations/SOB. No lightheadedness or dizziness. Review of Systems Review of Systems: As per HPI Physical Exam Physical Exam: General: Well-appearing 80yoF who is lying back in her hospital bed, relaxed, upon my arrival. She is freely conversive and has good energy. NAD. HEENT: NCAT. Eyes - Sclera are white, anicteric, and without injection. Cardiac: Normal rate and regular rhythm; S1 and S2 present with no murmurs, rubs, or gallops. Pulmonary: Good respiratory effort with symmetric expansion of the chest. No use of accessory muscles. Lungs were clear to auscultation bilaterally with no crackles or wheezes. Abdominal: Normoactive bowel sounds. Abdomen was soft, nondistended. Mild TTP in the epigastric/RUQ region Extremities: Upper and lower extremities are warm and well perfused. Psych: Well-developed, well-nourished, appropriately dressed for occasion. Behavior is cooperative and appropriate. Affect is WNL. Insight is appropriate. Results & Data Results & Data ([facility]) Vital Signs (Past 12 Hours) Vital Signs Temp Pulse Pulse Resp BP BP Pulse Ox 04/03/21 12:00 36.7 C 87 18 148/82 H 94 04/03/21 07:40 36.4 C L 83 16 163/74 H 99 04/03/21 03:33 36.4 C L 81 18 161/78 H 97 Resident Activity Tracking Resident Involvement: Resident Care Provided Care Provided: Adult Hospital Medicine (1) CAD (coronary artery disease) Associated angina: without angina Coronary Disease-Associated Artery/Lesion type: [place] artery [place] vs. transplanted heart: [place] heart Qualified Code(s): I25.10 - Atherosclerotic heart disease of [place] coronary artery without angina pectoris (2) Iron (Fe) deficiency anemia Iron deficiency anemia type: unspecified iron deficiency Qualified Code(s): D50.9 - Iron deficiency anemia, unspecified (3) COPD (chronic obstructive pulmonary disease) COPD type: unspecified COPD Qualified Code(s): J44.9 - Chronic obstructive pulmonary disease, unspecified
--- NOTE | 2021-04-03 14:28 | History & Physical Report ---
Date of Service April 03, 2021 Assessment & Plan Admission and Anticipated Discharge Date Admission Date: March 31, 2021 History of Present Illness Chief Complaint: Melena, anemia Primary Care Provider: Abiel Clark MD Jay[facility] EGD Allergies Allergy/AdvReac Type Severity Reaction Status Date / Time metoclopramide Allergy Intermediate ESSENTIAL Verified 03/31/21 17:41 TREMORS clopidogrel Allergy Mild HIVES Verified 03/31/21 17:41 diazepam Allergy Mild DEPRESSION Verified 03/31/21 17:41 diltiazem Allergy Mild Light Verified 03/31/21 17:41 headed erythromycin base Allergy Mild EES, TAKES Verified 03/31/21 17:41 Z-PACKS W/O RXN gabapentin Allergy Mild States Verified 03/31/21 17:41 hands catch fire latex Allergy Mild rips skin Verified 03/31/21 17:41 off lisinopril Allergy Mild COUGH Verified 03/31/21 17:41 losartan Allergy Mild HIVES Verified 03/31/21 17:41 micafungin Allergy Mild rash Verified 03/31/21 17:41 oxycodone Allergy Mild INC. Verified 03/31/21 17:41 DEPRESSION Penicillins Allergy Mild Diarrhea Verified 03/31/21 17:41 promethazine Allergy Mild TROUBLE Verified 03/31/21 17:41 FOCUSING SPEAKING AT HIGHER DOSES Sulfa (Sulfonamide Allergy Mild SKIN Verified 03/31/21 17:41 Antibiotics) BECOMES PHOTOSENSITIVE AND BECOMES RED bupropion Allergy Unknown unknown Verified 03/31/21 17:41 dicyclomine Allergy Unknown Unknown Verified 03/31/21 17:41 potassium chloride Allergy Unknown Unknown Verified 03/31/21 17:41 sucralfate Allergy Unknown Unknown Verified 03/31/21 17:41 Dntvydm-Qoq-Poi Reductase AdvReac Intermediate Diarrhea Verified 03/31/21 17:41 Inhibitor amoxicillin AdvReac Mild DIARRHEA Verified 03/31/21 17:41 clavulanic acid AdvReac Mild DIARRHEA Verified 03/31/21 17:41 hydrocodone AdvReac Mild "dont like Verified 03/31/21 17:41 how it makes me feel" Home Medications Medication Instructions Recorded Confirmed Type dexlansoprazole 60 mg PO HS 01/01/19 03/31/21 History lamotrigine 150 mg PO QAM 01/01/19 03/31/21 History nitroglycerin [Nitrostat] 0.4 mg SUBLINGUAL UD PRN 01/01/19 03/31/21 History quetiapine 150 mg PO HS 01/01/19 03/31/21 History roflumilast 500 mcg PO QAM 01/01/19 03/31/21 History Oxygen Home #1 ea 07/21/20 03/23/21 History cholecalciferol (vitamin D3) 25 25 mcg PO DAILY 01/11/21 03/31/21 History mcg (1,000 unit) capsule cyanocobalamin (vitamin B-12) 5,000 mcg PO DAILY 01/11/21 03/31/21 History 5,000 mcg capsule ipratropium 20 mcg-albuterol 100 2 puff INHALATION Q6H PRN g 01/11/21 03/31/21 History mcg/actuation mist for inhalation rosuvastatin 10 mg tablet 10 mg PO HS 01/11/21 03/31/21 History aspirin 81 mg PO BID 39 Days #78 tab 03/11/21 03/31/21 Rx ferrous gluconate 324 mg PO BIDM #60 tab 03/11/21 03/31/21 Rx nebivolol [Bystolic] 10 mg PO DAILY #30 tab 03/11/21 03/31/21 Rx ondansetron HCl [Zofran] 4 mg PO Q8H PRN #6 tab 03/11/21 03/31/21 Rx oxycodone 5 - 10 mg PO Q6 PRN #10 tab 03/11/21 03/31/21 Rx pregabalin 75 mg PO HS #30 cap 03/11/21 03/31/21 Rx acetaminophen 1,000 mg PO Q8 PRN 03/31/21 03/31/21 History Past Med/Surg History Medical History Anemia REASON FOR COLONOSCOPY 07/2019 Bipolar 1 disorder Breast cancer (08/23/14) "Abnormal bilateral mammogram Status post core needle biopsy 08/23/2014 revealing intraductal papilloma on the left Right breast showed invasive ductal carcinoma Status post right lumpectomy and sentinel lymph node biopsy 10/08/2014 Stage [id number] Status post completion of radiation therapy 12/24/2014 utilizing hypo- fractionation received 5000 cGy" Breast cancer, right 2014--stage 1--lumpectomy and radiation CAD (coronary artery disease) Change in vision Chronic obstructive pulmonary disease inhaler daily Degenerative joint disease Depression Fall GERD (gastroesophageal reflux disease) History of colon polyps Hyperlipidemia Hypertension Hypothyroidism Medical marijuana use Myocardial Infarction "silent" in --follows with Dr. Gibbs On home oxygen therapy 2L N/C at hs Pancreatitis hx of Papilloma of breast left Sleep apnea Temporal arteritis Unstable angina Unstable angina Surgical History History of bilateral cataract extraction History of bilateral tubal ligation History of breast surgery removal of papilloma of left breast History of cardiac cath x3--last ---no stents History of cholecystectomy History of colonoscopy History of esophagogastroduodenoscopy (EGD) History of lumpectomy of right breast History of right breast biopsy malignant History of tooth extraction all teeth removed History of total hysterectomy with bilateral salpingo-oophorectomy (BSO) Family History Grandfather (Paternal) Family history of diabetes mellitus Other No family history of adverse response to anesthesia Social History Smoking Status: Former smoker Cigarettes Per Day: 20 a day; Second Hand Exposure: No; Do You Dip or Chew Tobacco: No; Tobacco Cessation Education Requested by Patient: No Hx Alcohol Use: No Hx Substance Use: No Preferred Language: Polish Communication Ability: Effective Yeast Pumper Required: No Beliefs That Will Affect Care: None Current Living Situation: Spouse Other Information That Helps Us Care for You: No Feels Safe at Home: Yes Safety Concerns: Feels Safe At This Time Assistive Devices: Oxygen - at Night Physical Exam Constitutional: + obese Respiratory: normal respiratory effort Cardiovascular: Rate/Rhythm: regular rate and regular rhythm Gastrointestinal (Abdomen): Percussion/Palpation: abdomen soft Results & Data ([facility]) Vital Signs (Past 12 Hours) Vital Signs Temp Pulse Pulse Resp BP BP Pulse Ox 04/03/21 13:32 37.2 C 90 20 187/97 H 98 04/03/21 12:00 36.7 C 87 18 148/82 H 94 04/03/21 07:40 36.4 C L 83 16 163/74 H 99 04/03/21 03:33 36.4 C L 81 18 161/78 H 97
[2021-04-03] MEDS ORDERED: SODIUM CHLORIDE 0.9% 1000ML 1,000 ML IV SCH (14:30)
--- NOTE | 2021-04-03 14:57 | Anesthesiology Progress Note ---
Date of Service April 03, 2021 Anesthesia Post Procedure Vital Signs Vital Signs: Temp Pulse Pulse Pulse Resp BP BP 04/03/21 14:49 85 20 155/69 H 04/03/21 13:32 37.2 C 90 20 187/97 H 04/03/21 12:00 36.7 C 87 18 148/82 H 04/03/21 07:40 36.4 C L 83 16 163/74 H 04/03/21 03:33 36.4 C L 81 18 161/78 H 04/02/21 23:07 78 04/02/21 22:35 36.3 C L 82 18 170/73 H 04/02/21 19:12 36.7 C 84 18 181/75 H 04/02/21 16:01 36.8 C 77 20 164/80 H 04/02/21 15:14 88 Pulse Ox 04/03/21 14:49 97 04/03/21 13:32 98 04/03/21 12:00 94 04/03/21 07:40 99 04/03/21 03:33 97 04/02/21 23:07 04/02/21 22:35 98 04/02/21 19:12 95 04/02/21 16:01 96 04/02/21 15:14 Transfer of Care Handoff Completed per policy Notes Mental Status: alert / awake / arousable Patient Amnestic to Procedure: Yes Nausea / Vomiting: adequately controlled Pain: adequately controlled Airway Patency, RR, SpO2: stable & adequate BP & HR: stable & adequate Hydration State: stable & adequate Anesthetic Complications: no major complications apparent
--- NOTE | 2021-04-03 17:42 | Consultation Report ---
DATE OF VISIT: 04/03/2021 Addendum to the visit note done by Corina Alexander: I examined the patient, spoken to her and reviewed her chart, labs and x-rays as well as performed an EGD today. She presented with melena, anemia and diarrhea from the rehab center following a left hip repair. Her stool for bacterial pathogens and C. diff are negative. Fecal leukocytes are negative and her hemoglobin is actually about the same as what it was when she left the hospital following her hip operation. The diarrhea is most likely viral in nature and her EGD performed today was negative without any signs of blood or bleeding. I think her dark stools are probably from the iron that she was taking prior to admission and the heme-positive stools are probably exacerbated by her supratherapeutic Coumadin level on admission. For now, we will keep her on a clear liquid diet and follow her clinically. JACLYND
[2021-04-03] MEDS: LOPERAMIDE HCL 2 MG CAP PO PRN (18:28)
[2021-04-03] MEDS: ROSUVASTATIN CALCIUM 10 MG TAB PO SCH (19:53)
[2021-04-03] MEDS: PREGABALIN 75 MG CAP PO SCH (19:57)
[2021-04-04] MEDS: ROFLUMILAST 500 MCG TAB PO SCH (08:06)
[2021-04-04] MEDS: lamoTRIgine 100 MG TAB PO SCH (08:06)
[2021-04-04] MEDS: METOPROLOL TARTRATE 25 MG TAB PO SCH ×2 (08:07→14:29)
[2021-04-04] MEDS: LOPERAMIDE HCL 2 MG CAP PO PRN (08:16)
[2021-04-04] MEDS: ONDANSETRON INJ 2 MG/ML 2 ML VIAL IV PRN (08:16)
--- NOTE | 2021-04-04 09:11 | Gastroenterology Progress Note ---
Date of Service April 04, 2021 Assessment & Plan (1) Heme + stool: melena: continue PPI, hold anticoagulation and ASA. Stools brown now. EGD 04/03/2021 was negative without signs of blood or bleeding. diarrhea: Stool for bacterial pathogens and C. difficile are negative. Fecal leukocytes are negative. Continue prn Imodium. blood loss anemia: stable labs yesterday Please refer to supervising physician addendum for further recommendations. Admission and Anticipated Discharge Date Admission Date: March 31, 2021 Subjective The patient is alert awake and oriented this morning. She is lying in bed with nursing staff assisting to change her sheets and perform ADLs. She was incontinent of loose liquid stool this morning. She states she had fecal urgency. Had some abdominal cramping prior to bowel movement. Denies any abdominal pain, nausea, vomiting at this time. Stools brown in color. States she feels better after bowel movement. She did have 1 Imodium approximately 30 minutes prior to this episode. 04/03/2021: EGD performed by Dr. Garcia due to history of melena and patient on anticoagulation with Coumadin was negative without any signs of blood or bleeding. Review of Systems Review of Systems: All systems reviewed & are unremarkable except as noted in Subjective Physical Exam Gastrointestinal (Abdomen): Inspection/Auscultation: abdomen normal to inspection and normal bowel sounds; abdomen not distended Percussion/Palpation: + abdomen tender and abdomen soft; no guarding and abdomen not rigid Skin: + ecchymosis (bilateral lower abdomen) Results & Data ([facility]) Vital Signs (Past 12 Hours) Vital Signs Temp Pulse Resp BP Pulse Ox 04/04/21 04:00 36.5 C 91 H 20 166/73 H 92 04/03/21 23:11 36.4 C L 83 20 171/72 H 97
--- NOTE | 2021-04-04 13:45 | Progress Notes ---
DATE: 04/04/2021 Addendum to the progress note by Corina Alexander today: I examined the patient and reviewed her chart. She is feeling better, but still had 3 loose bowel movements today and has taken 1 Imodium so far today. She is tolerating clear liquids sparingly, but asking for a peanut butter sandwich. So far stool cultures are negative. I suspect this is a viral infection and should resolve soon. Hopefully, we will be able to advance her diet tomorrow.
--- NOTE | 2021-04-04 17:57 | Discharge Summary ---
Date of Service April 04, 2021 Admission HPI Per Admitting Provider Mrs. Castellanos is a 80 yo woman who presented for evaluation of profuse black watery diarrhea. Of note, she suffered a left intertrochanteric hip fracture on 03/08/21, s/p ORIF with Dr. Lopez. She was discharged to [facility] for rehab following her hospitalization. In the post-operative period, she developed a DVT in her left leg - she was then placed on both Lovenox and Coumadin. It is unclear who was managing her anticoagulation while at [facility] - she states she was directed to discontinue the Coumadin on 03/29/21. She says she was using the daily Lovenox injection up until 03/28/21. She was not on any antibiotics in the post-operative setting. She was discharged from [facility] on 03/30/21 - on arrival home, she developed nausea/vomiting. There was no blood in the vomitus, nor did it appear to look like coffee grounds. She later developed profuse "black watery stool." She had two episodes today prior to admission, followed by one in the ED. She denies any constitutional symptoms (malaise, fever/chills); no abdominal pain or urinary symptoms. She does feel weak and lightheaded. She insists she did not eat anything out of the ordinary Social Hx: she lives at home with her . Past Surgical Hx: patient had cholecystectomy and hysterectomy In the ED: She was afebrile, hemodynamically stable. Her WBC was not elevated. Her Hgb was 8.1. MCV 97. Platelets normal. INR elevated to 3.6. CMP was normal. Trop was undetectable. Lipase not elevated. Hemoccult stool was positive. cdiff pending. Stool culture pending. CXR normal. A/P CT scan without acute abnormalities. EKG showing normal sinus rhythm, no concern for ischemia. She was given 1 liter of normal saline, 40mg IV protonix, 20mg IV pepcid, 4mg zofran Admission Exam Per Admitting Provider Constitutional: WD/WN, vitals as above cooperative; no acute distress Eyes: + anicteric sclerae ENMT: external ear and nose normal, oropharynx normal Neck: normal visual inspection and trachea midline Respiratory: normal respiratory effort, lungs clear to auscultation no cough Auscultation: no crackles, no rales, no rhonchi and no wheezes Cardiovascular: Rate/Rhythm: regular rate and regular rhythm Heart Sounds: normal S1, normal S2 and + murmur (systolic ejection) Extremities: + pedal edema Gastrointestinal (Abdomen): Inspection/Auscultation: abdomen normal to inspection and normal bowel sounds; abdomen not distended Percussion/Palpation: + abdomen tender (mild RUQ tenderness) and abdomen soft Skin: no rashes, warm and dry Psychiatric: A+Ox3, euthymic affect Principal Diagnosis diarrhea heme positive stools (not melena) suspect melanotic-appearing stools secondary to iron supplementation Discharge Exam General: 80yoF who is sitting back in her hospital chair, relaxed, upon my arrival. She is in NAD. HEENT: NCAT. Eyes - Sclera are white, anicteric, and without injection. PERRL. EOMs display full ROM bilaterally. Mouth - MMM with no tonsillar edema or exudates. Cardiac: Normal rate and regular rhythm; S1 and S2 present with no murmurs, rubs, or gallops. Pulmonary: Good respiratory effort with symmetric expansion of the chest. No use of accessory muscles. Lungs were clear to auscultation bilaterally with no crackles or wheezes. Abdominal: Normoactive bowel sounds. Abdomen was soft, nondistended, and non- tender to palpation. Discharge Data Allergies Allergy/AdvReac Type Severity Reaction Status Date / Time metoclopramide Allergy Intermediate ESSENTIAL Verified 03/31/21 17:41 TREMORS clopidogrel Allergy Mild HIVES Verified 03/31/21 17:41 diazepam Allergy Mild DEPRESSION Verified 03/31/21 17:41 diltiazem Allergy Mild Light Verified 03/31/21 17:41 headed erythromycin base Allergy Mild EES, TAKES Verified 03/31/21 17:41 Z-PACKS W/O RXN gabapentin Allergy Mild States Verified 03/31/21 17:41 hands catch fire latex Allergy Mild rips skin Verified 03/31/21 17:41 off lisinopril Allergy Mild COUGH Verified 03/31/21 17:41 losartan Allergy Mild HIVES Verified 03/31/21 17:41 micafungin Allergy Mild rash Verified 03/31/21 17:41 oxycodone Allergy Mild INC. Verified 03/31/21 17:41 DEPRESSION Penicillins Allergy Mild Diarrhea Verified 03/31/21 17:41 promethazine Allergy Mild TROUBLE Verified 03/31/21 17:41 FOCUSING SPEAKING AT HIGHER DOSES Sulfa (Sulfonamide Allergy Mild SKIN Verified 03/31/21 17:41 Antibiotics) BECOMES PHOTOSENSITIVE AND BECOMES RED bupropion Allergy Unknown unknown Verified 03/31/21 17:41 dicyclomine Allergy Unknown Unknown Verified 03/31/21 17:41 potassium chloride Allergy Unknown Unknown Verified 03/31/21 17:41 sucralfate Allergy Unknown Unknown Verified 03/31/21 17:41 Jnekczg-Yxg-Luh Reductase AdvReac Intermediate Diarrhea Verified 03/31/21 17:41 Inhibitor amoxicillin AdvReac Mild DIARRHEA Verified 03/31/21 17:41 clavulanic acid AdvReac Mild DIARRHEA Verified 03/31/21 17:41 hydrocodone AdvReac Mild "dont like Verified 03/31/21 17:41 how it makes me feel" Consultations 03/31/21 19:01 ED Decision to Admit Stat 04/01/21 11:24 Consult Gastroenterology Routine Procedures Performed Operation Date: 04/03/21 16:30 Actual Procedures p Esophagogastroduodenoscopy - Vinnie Garcia Ordered Studies US venous doppler LE BI CLINICAL HISTORY: Recent hip fracture. History of prior left leg DVT. Patient off Coumadin. COMPARISON STUDY: December 2009 FINDINGS: Real-time and color flow Doppler imaging were performed. Flow was seen within the femoral, popliteal and calf veins with no intraluminal thrombus demonstrated. The saphenous vein is patent. IMPRESSION: No evidence of lower extremity DVT. CT OF THE ABDOMEN AND PELVIS WITH CONTRAST CLINICAL HISTORY: Nausea, vomiting, black diarrhea . COMPARISON STUDY: CT of the abdomen and pelvis January 01, 2019. TECHNIQUE: Following IV administration of 83 mL of Optiray, axial images of the abdomen and pelvis were obtained from the lung bases to the proximal femurs. Images were reviewed in the axial, sagittal, and coronal planes. IV contrast was administered without complication. Automated exposure control was utilized for the study. A dose lowering technique was utilized adhering to the principles of ALARA CT DOSE: 509.34 mGy.cm FINDINGS: Lung bases are unremarkable. A small hiatal hernia is noted. Hepatic steatosis is noted. There are no hepatic lesions. Borderline splenomegaly is noted. Biliary ductal dilatation is unchanged since prior CT. This is likely related to cholecystectomy. Mild pancreatic ductal dilatation is also unchanged. There is no peripancreatic infiltration. A left renal cyst is present. There is no hydronephrosis. Subcentimeter right renal lesion is too small to characterize. The appendix is normal. Sigmoid diverticulosis is noted without evidence for acute diverticulitis. Injection sites are noted within the subcutaneous tissues. Internal fixation of the intertrochanteric fracture of the left femur is partially imaged. Moderate to extensive atherosclerotic plaque is noted within the major vessels. IMPRESSION: 1. No acute process within the abdomen or pelvis. 2. Sigmoid diverticulosis. No evidence for acute diverticulitis. No bowel wall thickening. Normal appendix. 3. Small hiatal hernia. Hospital Course (1) Diarrhea: Popeye Collier is a 80 y/o F w/ CAD, COPD, GERD, HTN, HLD, hypothyroidism, TIMOTHY, and recent LLE DVT s/p L MANAN (was on both Lovenox and Coumadin) in February 2021 who presented for ~2.5 wks of melena and voluminous, watery diarrhea. She is hemodynamically stable. Melanotic-appearing Stools -- most likely representing appearance change from iron supplementation - In setting of hemeoccult (+), frequent loose stools, lower Hgb, and being on 2 different forms of anticoagulation, original concern was that black stools may be acute GIB - From a visual perspective, noted that patient does take iron supplement and her stools - Given melena and no BRBpR, lower suspicion this is distribution sales representative of a LGIB - GI consulted, performed EGD during stay: - no evidence of bleeding or ulceration on EGD - Heme positive stools could be secondary to supratherapeutic INR/dual anticoagulation - appearance of stool likely attributable to p.o. iron supplementation - Continue oral PPIs Diarrhea - Frequent, Voluminous -- decreasing in frequency - Thankfully decreasing in frequency since previously in her hospital course - Given that GIB now seems less likely (see above), suspect this may be secondary to acute gastroenteritis - Infectious work-up also largely unrevealing: - C. diff gene negative - Stool smear/culture: No WBCs. No shigatoxin. No salmonella, shigella, campylobacter. - Continue to encourage hydration while here - Continue utilizing Imodium, cholestyramine p.r.n. - Consider BMP within 1-2 weeks of discharge Iron Deficiency Anemia -- normocytic - Baseline Hgb on review does appear to be between 8 - 10, closer to 10 - d/c Hgb at 8.2 on 03/11 - Patient with long-standing h/o iron deficiency anemia - Iron studies in 02/2021 demonstrated low transferrin saturation, ferritin - Hgb on admission 8.1, MCV 97 - Consistently demonstrating stability now w/ Hgb 7.7 - 8.1 - Given presumed negative EGD, lower Hgb may just be distribution sales representative of [employer] - Can continue iron supplementation following discharge - Recommend follow-up CBC within 1-2 weeks of discharge Anxiety and depression - worsened anxiety on 04/02; patient was upset about being in the hospital and had general worry - hydroxyzine 25 mg PO x 1 on 04/02 w/ good result for patient's exacerbation of anxiety - defer restarting home venlafaxine 150 because per [facility] chart records, last time it showed in her med list was 06/2020. patient likely had not been given this medication at [facility] - will defer to patient's PCP to restart in the outpatient setting Perianal irritation and hemorrhoids - per nursing report, likely 2/2 diarrhea - prescribed topical creams and anusol cream History of DVT - occurred in post-operative period after recent L hip fracture repair (per records) - patient was placed on both Lovenox and Coumadin (presumably, patient was bridged with Lovenox to Coumadin, although she reports using the two concurrently for much of the treatment course). - anticoagulation was discontinued 2-3 days prior to admission - 04/01 venous doppler of BLE was negative and did not show DVT - Initiate Eliquis 5mg p.o. b.i.d upon discharge -- this should be continued until minimum of 3 month course is completed Supratherapeutic INR -- resolved - INR 3.6 on admission, 1.2 on 04/02 - 5mg Vit K given on admission due to possible concurrent GI bleed - Coumadin d/c on 03/29. 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 Bipolar I - continue home lamotrigine and quetiapine Dispo: Home. Recommend PT and home health based on PT assessment done here as inpatient Code: DNR/DNI (2) Heme + stool: (3) DVT (deep venous thrombosis): (4) Supratherapeutic INR: (5) Iron (Fe) deficiency anemia: (6) CAD (coronary artery disease): (7) COPD (chronic obstructive pulmonary disease): (8) Bipolar 1 disorder: (9) Stool color black: (10) Watery diarrhea: Total Time Total Time Spent Total Time Spent (In Minutes): 30 Discharge Plan Discharge Items Patient Disposition: Home - Self-Care Reason For Visit: DIARRHEA, GI BLEED Discharge Diagnosis: diarrhea Activity: Per Instructions section Non-emergency contact: Primary Care Provider Call non-emergency contact if: your symptoms worsen, your pain is not controlled, your pain is worsening and your temperature is above 101 Follow-up/Referrals: Abiel Clark MD [Primary Care Provider] - Diet: Heart Healthy Addtl Attending Provider Instructions: You were seen at [facility] for evaluation of ongoing diarrhea and dark stools. Upon your arrival, you underwent work-up to determine the cause of the symptoms. You underwent a special type of imaging called EGD, which led to your esophagus, stomach, and first part of your small intestine, which thankfully did not show any evidence of bleeding. Your blood counts remained stable while you were here. Further, your stool culture, stool smear, as well as further testing did not reveal an obvious bacterial cause for your diarrhea. At this time, we suspect that your dark stools are most likely due to iron supplementation, which is well known to cause discoloration of the stool. The cause of your diarrhea remains somewhat unclear; it is possible that this may represent a viral enterocolitis. We added Imodium and Questran, medication that decreases bile acids in the bowel, in an attempt to aid your symptoms. Thankfully, there is no evidence of abnormalities on labs as a result of this diarrhea. We encourage ample hydration during this time. You may continue using Questran and Imodium as needed for your diarrhea. We will resume anticoagulation at this time. We will start Eliquis 5mg, by mouth, twice daily - for the remainder of your course. In the interim, please follow-up with your primary care provider within 1 week to review this visit. If you experience any sudden or worsening in abdominal pain, nausea, vomiting, chest pain, palpitations, shortness of breath, profuse blood in your stool, or other worrisome symptoms, please seek medical attention; if your symptoms are severe, please report to the ER for evaluation. It has been a pleasure caring for you here [facility] and we wish you the best in your recovery. Pending Studies at Discharge: No Stand-Alone Forms: My [facility], Smoking Cessation Medications and DC Order Prescriptions: New Cholestyramine Light 4 gram Powder In Packet 4 g PO BID@1000,2200 7 Days Qty: 14 RF: 0 Eliquis 5 mg tablet 5 mg PO BID Qty: 30 RF: 1 Continued (DME) Oxygen Home Liters Per Minute See Rx Instructions .ROUTE .MEDSUPPLY Qty: 1 RF: 0 rosuvastatin 10 mg tablet 10 mg PO HS RF: 0 cholecalciferol (vitamin D3) 25 mcg (1,000 unit) capsule 25 mcg PO DAILY RF: 0 cyanocobalamin (vitamin B-12) 5,000 mcg capsule 5,000 mcg PO DAILY RF: 0 lamotrigine 150 mg tablet 150 mg PO QAM RF: 0 nitroglycerin [Nitrostat] 0.4 mg Tablet, Sublingual 0.4 mg Sublingual UD PRN (Reason: Angina) RF: 0 quetiapine 150 mg tablet extended release 24 hr 150 mg PO HS RF: 0 dexlansoprazole 60 mg capsule,biphase delayed releas 60 mg PO HS RF: 0 roflumilast 500 mcg tablet 500 mcg PO QAM RF: 0 Combivent Respimat 20-100 mcg/actuation mist 2 puff INHALATION Q6H PRN (Reason: Shortness Of Breath) RF: 0 ferrous gluconate 324 mg (38 mg iron) Tablet 324 mg PO BIDM Qty: 60 RF: 0 aspirin 81 mg Tablet,Delayed Release (Dr/Ec) 81 mg PO BID 39 Days Qty: 78 RF: 0 oxycodone 5 mg Tablet 5 - 10 mg PO Q6 PRN (Reason: pain) Qty: 10 RF: 0 Bystolic 10 mg tablet 10 mg PO DAILY Qty: 30 RF: 0 ondansetron HCl [Zofran] 4 mg tablet 4 mg PO Q8H PRN (Reason: nausea and vomiting) Qty: 6 RF: 0 pregabalin 75 mg capsule 75 mg PO HS Qty: 30 RF: 0 acetaminophen 500 mg tablet 1,000 mg PO Q8 PRN (Reason: Pain) RF: 0 Discharge Orders: Discharge Order (Routine); Ordered 04/04/21 Ordered By: Ulisses Garcia Admission Data Admit Date/Time: 03/31/21 20:14 Attending Provider: Arvin Ibrahim Admit Provider: Yvonne Chan Primary Care Provider: Abiel Clark [facility] ; Silvio Cornejo [facility] ; Jon Guzman ; Lisandro Dominguez Other Interventions: Discharge Summary Assessment (RN) Last Done: 04/04/21 18:46 Supervising Physician Co-Signing Physician Notes Patient seen and examined with PGY-1 Dr. Garcia. Agree with history, exam findings, assessment and plan of care as outlined. 80 year old female with hx of CAD, COPD, HTN, HLD, hypothyroid, TIMOTHY, provoked DVT admitted with melena. Stools are no longer dark. Loose stool are improved with Imodium and cholestyramine (she is s/p cholecystectomy). Was able to work with PT without any issues. 1. Upper GI bleed--seems less likely given normal EGD. Melena appearing stools may be secondary to oral iron that she was taking. Stop PPI on discharge.. EGD unremarkable. Restarting anticoagulation with Eliquis. 2. Diarrhea. Infectious studies negative. Ok to start Imodium, trial of cholestyramine. 3. Iron deficiency anemia. Hgb 8.1. Seems to be near her baseline. Ok to continue oral iron. 4. Anxiety, depression. Bipolar disorder. Continue home Lamictal and Seroquel. PRN hydroxyzine for acute anxiety. 5. DVT, provoked. Anticoagulation was discontinued several days prior to admission. See below. 6. Supratherapeutic INR. INR 3.6 on admission?1.1. S/p vitamin K on admission. Rather than restarting Coumadin, will start Eliquis for DVT treatment. 7. CAD. Multivessel. Restarted ASA. Metoprolol (replacing home nebivolol) 8. COPD. Continue home roflumilast, duoneb. Dispo: discharge home today. I personally spent 35 minutes discharge planning for this patient. Resident Activity Tracking Resident Involvement: Resident Care Provided Care Provided: Adult Hospital Medicine
[2021-04-04] MEDS ORDERED: CHOLESTYRAMINE LIGHT 4 GM PKT PO SCH (22:00)
--- NOTE | 2021-04-18 12:14 | Coding Query ---
A supporting diagnosis is required for the test/procedure performed on this patient in order for us to be reimbursed by the patient's insurance. Please provide a supporting diagnosis for the following test/procedure listed below next to the test name along with your signature. *If there is no additional diagnosis for this patient that would support the following test/procedure please document that below next to the test/procedure. Test(s)/Procedure(s) that require a supporting diagnosis: US venous doppler LE BI DIAGNOSIS: Provider Signature: Date: Thank you Echo [facility] Information Management Once completed, please kindly fax back to [phone] For questions please call [phone] CHARIS
== END 2021-04-04 19:21 | disposition home or self-care (01) ==
LOC: ED 15:24 → SUATTDRO 20:14 → 2N 20:14 → INTOOBSV 20:14 → 2N 21:29

== ENCOUNTER 2021-04-10 15:12 | Inpatient (IN) ==
[2021-04-10 17:28] LABS: Basophils # (auto) 0.04 K/uL (0-0.2); Basophils % (auto) 0.6 %; Eosinophils # (auto) 0.07 K/uL (0-0.5); Hematocrit (blood only) 33.4 % (37-47); Hemoglobin 10.7 g/dL (12.0-16.0); Immature Granulocytes # (auto) 0.04 K/uL (0.00-0.02); Immature Granulocytes % (auto) 0.6 %; Lymphocytes # (auto) 1.72 K/uL (1.2-3.4); Lymphocytes % (auto) 23.7 %; Mean Corpuscular Hemoglobin 30.3 pg (25-34); Mean Corpuscular Volume 94.6 fL (80-100); Mean Platelet Volume 9.9 fL (7.4-10.4); Monocytes # (auto) 1.43 K/uL (0.11-0.59); Monocytes % (auto) 19.7 %; Neutrophils # (auto) 3.95 K/uL (1.4-6.5); Neutrophils % (auto) 54.4 %; Nucleated RBC # (auto) 0.03 K/uL (0-0); Nucleated RBC % (auto) 0.4 %; Platelet Count 284 K/uL (130-400); RDW Coefficient of Variation 17.3 % (11.5-14.5); RDW Standard Deviation 59.2 fL (36.4-46.3); Red Blood Count 3.53 M/uL (4.2-5.4); White Blood Count 7.25 K/uL (4.8-10.8)
[2021-04-10] MEDS ORDERED: METOPROLOL TARTRATE 1 MG/ML VIAL IV STA ×3 (17:37→21:06)
[2021-04-10 17:46] LABS: Alanine Aminotransferase 15 U/L (12-78); Albumin Level 3.1 gm/dl (3.4-5.0); Aspartate Aminotransferase 19 U/L (15-37); BUN Creatinine Ratio 9.2 (10-20); Blood Urea Nitrogen 10 mg/dl (7-18); Calcium 9.6 mg/dl (8.5-10.1); Carbon Dioxide 27 mmol/L (21-32); Chloride 106 mmol/L (98-107); Est GFR (African American) 57.6 ml/min; Est GFR (Non-African American) 49.7 ml/min; Glucose 105 mg/dl (70-99); Potassium 3.1 mmol/L (3.5-5.1); Sodium 143 mmol/L (136-145)
[2021-04-10 17:49] LABS: Albumin Globulin Ratio 0.8 (0.9-2); Alkaline Phosphatase 125 U/L (45-117); Bilirubin,Total 0.5 mg/dl (0.2-1); Total Protein 7.1 gm/dl (6.4-8.2)
--- NOTE | 2021-04-10 18:15 | XRay Report ---
SINGLE VIEW CHEST CLINICAL HISTORY: Palpitations. Atrial fibrillation. FINDINGS: An AP, portable, upright chest radiograph is compared to study dated 03/31/2021. The heart i s enlarged noting atherosclerotic calcification with uncoiling of the thoracic aorta. The pulmonary v asculature is noncongested. Chronic additional thickening similar to previous. There is mild elevatio n of the right hemidiaphragm. Scarring/atelectasis is noted at the lung bases. No airspace consolidat ion or large pleural effusion is identified. No pneumothorax is seen. The skeletal structures are ost eopenic. The bony thorax is grossly intact. IMPRESSION: Cardiomegaly with no active disease in the chest. ACT 112: Negative or not required by law. Electronically signed by: Doug Mancilla M.D. 04/10/2021 6:14 PM
[2021-04-10] MEDS ORDERED: ONDANSETRON INJ 2 MG/ML 2 ML VIAL IV STA (18:23)
--- NOTE | 2021-04-10 18:28 | Emergency Department Note ---
Impression & Plan Atrial fibrillation with rapid ventricular response, Elevated troponin I level, Hypokalemia ED Provider Note Provider: Farhan Boss MD DATE OF SERVICE: 04/10/2021 CHIEF COMPLAINT: Elevated heart rate HISTORY OF PRESENT ILLNESS: Patient is a 80-year-old female with a past medical history including recent hospitalization for hip fracture as well as recent hospitalization for melanotic stools currently on Eliquis presenting today after her home physical therapist noted elevated heart rate. Patient states she is been home for 7 to 10 days from her rehab and has been doing well the last 2 or 3 days may be a little bit lightheaded. Denies any chest pain or shortness of breath. Denies any leg swelling. Denies any fever or significant cough. Patient reports some slight nausea at times. Denies any falls or syncope but again has felt somewhat lightheaded and almost like she is going to faint. Has not noticed any palpitations or again chest pressure. Has not noted elevated heart rate until the physical therapist found this today. Patient states she talked with her doctors office of referred here. She denies any history of A. fib. REVIEW OF SYSTEMS: A total of 10 review of systems was obtained and negative except as stated above in the HPI. PAST MEDICAL HISTORY: As noted above MEDICATIONS: Reviewed home medications includes Eliquis SOCIAL HISTORY: , lives at home PHYSICAL EXAM: GENERAL: alert and oriented in no acute distress on stretcher Head: normocephalic and atraumatic EYES: No injection, discharge or icterus. NECK: Trachea midline. Supple. ENT: Mucous membranes pink and moist. LUNGS: Airway patent. No retractions. Breath sounds clear with good air entry bilaterally. HEART: Irregular tachycardic rate and rhythm. No chest wall tenderness ABDOMEN: Soft and non-tender, without guarding or rebound. SKIN: Acyanotic, warm, dry, without rashes EXTREMITIES: Without swelling, tenderness or deformity NEUROLOGICAL: No focal deficits. No aphasia. No facial droop or slurred speech. EK bpm rapid atrial fibrillation. Some lateral ST depressions are noted without acute ST segment elevation. T wave inversions inferiorly are noted. QTc 387. CONTINUOUS CARDIAC MONITORING: was ordered and showed a heart rate of 100s-160s bpm in atrial fibrillation Patient's laboratory studies and imaging reviewed. Differential includes Premature contractions, electrolyte abnormality, cardiac dysrhythmia, thyroid dysfunction, pulmonary embolism, infection, gastrointestinal, as well as other pathologies. IMPRESSION/MEDICAL DECISION MAKING: Patient appears to be in new onset rapid atrial fibrillation. Currently anticoagulated Eliquis given recent surgery. Has been compliant per report with her anticoagulation. Patient not unstable and not hypoxic. EKG with some lateral depressions and troponin elevated likely related to her heart rate and demand ischemia. Not having active chest pain. Allergy list includes diltiazem thus given several dose of metoprolol with improvement of heart rate. Chest Xray without evidence of pleural effusions or pneumonia. Blood work without significant abnormality beyond some hypokalemia. Improved anemia compared to previous. Renal function appears stable. Given her comorbidities and new onset atrial fibrillation feel that further observation in the hospital be warranted to switch to a long-acting oral option. Little bit of nausea here and given some Zofran. Benign abdomen otherwise. Patient's Covid test does later return although she not having significant Covid type symptoms and has been vaccinated question carrier status. Hospitalist and patient were made aware. Patient's allergy list also includes potassium chloride do not feel this time will challenge it in the ER as the patient is unsure of prior reaction. DIAGNOSIS: New onset atrial fibrillation with rapid ventricular response, elevated troponin, hypokalemia DISPOSITION: Hospitalist will evaluate Patient was agreeable with this plan. Critical Care I have personally spent 33 minutes of critical care time in the direct management of this patient. This includes bedside care, interpretation of diagnostic studies, and testing, discussion with consultants, patient, and family members, and other required patient management activities. These 33 minutes is in excess of all separately billable procedures. Past Med/Surg History Medical History Anemia REASON FOR COLONOSCOPY 07/2019 Bipolar 1 disorder Breast cancer (08/23/14) "Abnormal bilateral mammogram Status post core needle biopsy 08/23/2014 revealing intraductal papilloma on the left Right breast showed invasive ductal carcinoma Status post right lumpectomy and sentinel lymph node biopsy 10/08/2014 Stage [id number] Status post completion of radiation therapy 12/24/2014 utilizing hypo-fractionation received 5000 cGy" Breast cancer, right 2013--stage 1--lumpectomy and radiation CAD (coronary artery disease) Change in vision Chronic obstructive pulmonary disease inhaler daily Degenerative joint disease Depression Fall GERD (gastroesophageal reflux disease) History of colon polyps Hyperlipidemia Hypertension Hypothyroidism Medical marijuana use Myocardial Infarction "silent" in s--follows with Dr. Gibbs On home oxygen therapy 2L N/C at hs Pancreatitis hx of Papilloma of breast left Sleep apnea Temporal arteritis Unstable angina Unstable angina Surgical History History of bilateral cataract extraction History of bilateral tubal ligation History of breast surgery removal of papilloma of left breast History of cardiac cath x3--last ---no stents History of cholecystectomy History of colonoscopy History of esophagogastroduodenoscopy (EGD) History of lumpectomy of right breast History of right breast biopsy malignant History of tooth extraction all teeth removed History of total hysterectomy with bilateral salpingo-oophorectomy (BSO) Family History Grandfather (Paternal) Family history of diabetes mellitus Other No family history of adverse response to anesthesia Social History Smoking Status: Former smoker Cigarettes Per Day: 20 a day; Second Hand Exposure: No; Hx Alcohol Use: No Hx Substance Use: No Preferred Language: Mohawk Communication Ability: Effective 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 Beliefs That Will Affect Care: None Current Living Situation: Spouse Other Information That Helps Us Care for You: No Feels Safe at Home: Yes Safety Concerns: Feels Safe At This Time Assistive Devices: Denture - Upper, Denture - Lower and Oxygen - at Night Allergies Allergies Allergy/AdvReac Type Severity Reaction Status Date / Time metoclopramide Allergy Intermediate ESSENTIAL Verified 04/10/21 17:53 TREMORS clopidogrel Allergy Mild HIVES Verified 04/10/21 17:53 diazepam Allergy Mild DEPRESSION Verified 04/10/21 17:53 diltiazem Allergy Mild Light Verified 04/10/21 17:53 headed erythromycin base Allergy Mild EES, TAKES Verified 04/10/21 17:53 Z-PACKS W/O RXN gabapentin Allergy Mild States Verified 04/10/21 17:53 hands catch fire latex Allergy Mild rips skin Verified 04/10/21 17:53 off lisinopril Allergy Mild COUGH Verified 04/10/21 17:53 losartan Allergy Mild HIVES Verified 04/10/21 17:53 micafungin Allergy Mild rash Verified 04/10/21 17:53 oxycodone Allergy Mild INC. Verified 03/31/21 17:41 DEPRESSION Penicillins Allergy Mild Diarrhea Verified 03/31/21 17:41 promethazine Allergy Mild TROUBLE Verified 03/31/21 17:41 FOCUSING SPEAKING AT HIGHER DOSES Sulfa (Sulfonamide Allergy Mild SKIN Verified 03/31/21 17:41 Antibiotics) BECOMES PHOTOSENSITIVE AND BECOMES RED bupropion Allergy Unknown unknown Verified 03/31/21 17:41 dicyclomine Allergy Unknown Unknown Verified 03/31/21 17:41 potassium chloride Allergy Unknown Unknown Verified 03/31/21 17:41 sucralfate Allergy Unknown Unknown Verified 03/31/21 17:41 Budmgzv-Fhs-Pfo Reductase AdvReac Intermediate Diarrhea Verified 03/31/21 17:41 Inhibitor amoxicillin AdvReac Mild DIARRHEA Verified 03/31/21 17:41 clavulanic acid AdvReac Mild DIARRHEA Verified 03/31/21 17:41 hydrocodone AdvReac Mild "dont like Verified 03/31/21 17:41 how it makes me feel" Home Meds Home Medications Medication Instructions Recorded Confirmed dexlansoprazole 60 mg PO HS 01/01/19 04/10/21 lamotrigine 150 mg PO QAM 01/01/19 04/10/21 nitroglycerin [Nitrostat] 0.4 mg SUBLINGUAL UD PRN 01/01/19 04/10/21 quetiapine 150 mg PO HS 01/01/19 04/10/21 roflumilast 500 mcg PO QAM 01/01/19 04/10/21 Oxygen Home #1 ea 07/21/20 04/10/21 cholecalciferol (vitamin D3) 25 25 mcg PO DAILY 01/11/21 04/10/21 mcg (1,000 unit) capsule cyanocobalamin (vitamin B-12) 5,000 mcg PO DAILY 01/11/21 04/10/21 5,000 mcg capsule ipratropium 20 mcg-albuterol 100 2 puff INHALATION Q6H PRN g 01/11/21 04/10/21 mcg/actuation mist for inhalation rosuvastatin 10 mg tablet 10 mg PO HS 01/11/21 04/10/21 cholestyramine-aspartame 4 g PO BID@1000,2200 PRN 04/10/21 04/10/21 [Cholestyramine Light] nebivolol [Bystolic] 5 mg PO DAILY 04/10/21 04/10/21 Previous Rx's Medication Instructions Recorded aspirin 81 mg PO BID 39 Days #78 tab 03/11/21 ferrous gluconate 324 mg PO BIDM #60 tab 03/11/21 ondansetron HCl [Zofran] 4 mg PO Q8H PRN #6 tab 03/11/21 oxycodone 5 - 10 mg PO Q6 PRN #10 tab 03/11/21 pregabalin 75 mg PO HS #30 cap 03/11/21 apixaban [Eliquis] 5 mg PO BID #30 tab 04/04/21 Results & Data (ED) Vital Signs Vital Signs - 24 hr 04/10/21 15:18 04/10/21 17:02 04/10/21 17:18 Temperature 36.6 C Temperature Source Temporal Artery Scan Pulse Rate 84 150 H Pulse Rate [Finger] 133 H Pulse Rate from SpO2 Sensor 169 H Pulse Rhythm [Finger] Respiratory Rate 16 16 20 Respiratory Effort / Characteristics Non-Labored Respiratory Depth Normal Blood Pressure 121/72 119/87 Blood Pressure [Left Arm] 117/70 Blood Pressure Mean 88 97 Blood Pressure Mean [Left Arm] 85 Blood Pressure Position [Left Arm] Sitting Pulse Oximetry 99 97 93 Oxygen Delivery Method Room Air Sepsis Recent Fever Within 48 Hours No Sepsis New/Unexplained Change in Mental Status No Sepsis Action Taken by Nursing No Action Required 04/10/21 17:29 04/10/21 17:30 04/10/21 17:31 Temperature Temperature Source Pulse Rate 155 H 162 H 166 H Pulse Rate [Finger] Pulse Rate from SpO2 Sensor 173 H 177 H 149 H Pulse Rhythm [Finger] Respiratory Rate 16 22 17 Respiratory Effort / Characteristics Respiratory Depth Blood Pressure 145/100 H Blood Pressure [Left Arm] Blood Pressure Mean 115 Blood Pressure Mean [Left Arm] Blood Pressure Position [Left Arm] Pulse Oximetry 94 94 95 Oxygen Delivery Method Sepsis Recent Fever Within 48 Hours Sepsis New/Unexplained Change in Mental Status Sepsis Action Taken by Nursing 04/10/21 17:41 04/10/21 17:42 04/10/21 17:45 Temperature Temperature Source Pulse Rate 145 H 158 H 154 H Pulse Rate [Finger] Pulse Rate from SpO2 Sensor 174 H 134 H Pulse Rhythm [Finger] Respiratory Rate 14 13 Respiratory Effort / Characteristics Respiratory Depth Blood Pressure 169/83 H 169/83 H Blood Pressure [Left Arm] Blood Pressure Mean 111 Blood Pressure Mean [Left Arm] Blood Pressure Position [Left Arm] Pulse Oximetry 86 L 94 Oxygen Delivery Method Sepsis Recent Fever Within 48 Hours Sepsis New/Unexplained Change in Mental Status Sepsis Action Taken by Nursing 04/10/21 17:49 04/10/21 17:50 04/10/21 17:54 Temperature Temperature Source Pulse Rate 126 H Pulse Rate [Finger] 122 H 96 H Pulse Rate from SpO2 Sensor 111 H Pulse Rhythm [Finger] Irregular Irregular Respiratory Rate 21 20 20 Respiratory Effort / Characteristics Non-Labored Spontaneous Non-Labored Spontaneous Respiratory Depth Normal Normal Blood Pressure 122/78 Blood Pressure [Left Arm] 122/78 130/86 Blood Pressure Mean 92 Blood Pressure Mean [Left Arm] 92 100 Blood Pressure Position [Left Arm] Sitting Lying Pulse Oximetry 93 93 97 Oxygen Delivery Method Room Air Room Air Sepsis Recent Fever Within 48 Hours Sepsis New/Unexplained Change in Mental Status Sepsis Action Taken by Nursing 04/10/21 17:55 04/10/21 18:00 04/10/21 18:01 Temperature Temperature Source Pulse Rate 107 H 128 H 104 H Pulse Rate [Finger] Pulse Rate from SpO2 Sensor 92 H 126 H 103 H Pulse Rhythm [Finger] Respiratory Rate 23 20 25 H Respiratory Effort / Characteristics Respiratory Depth Blood Pressure 130/86 129/82 Blood Pressure [Left Arm] Blood Pressure Mean 100 97 Blood Pressure Mean [Left Arm] Blood Pressure Position [Left Arm] Pulse Oximetry 96 96 96 Oxygen Delivery Method Sepsis Recent Fever Within 48 Hours Sepsis New/Unexplained Change in Mental Status Sepsis Action Taken by Nursing 04/10/21 18:15 04/10/21 18:29 04/10/21 18:30 Temperature Temperature Source Pulse Rate 99 H 110 H 122 H Pulse Rate [Finger] Pulse Rate from SpO2 Sensor 96 H 110 H Pulse Rhythm [Finger] Respiratory Rate 19 24 Respiratory Effort / Characteristics Respiratory Depth Blood Pressure 145/89 H 145/89 H Blood Pressure [Left Arm] Blood Pressure Mean 107 Blood Pressure Mean [Left Arm] Blood Pressure Position [Left Arm] Pulse Oximetry 92 94 Oxygen Delivery Method Sepsis Recent Fever Within 48 Hours Sepsis New/Unexplained Change in Mental Status Sepsis Action Taken by Nursing 04/10/21 18:31 04/10/21 18:45 04/10/21 19:00 Temperature Temperature Source Pulse Rate 120 H 105 H 104 H Pulse Rate [Finger] Pulse Rate from SpO2 Sensor 122 H 91 H 108 H Pulse Rhythm [Finger] Respiratory Rate 22 20 Respiratory Effort / Characteristics Respiratory Depth Blood Pressure Blood Pressure [Left Arm] Blood Pressure Mean Blood Pressure Mean [Left Arm] Blood Pressure Position [Left Arm] Pulse Oximetry 94 91 96 Oxygen Delivery Method Sepsis Recent Fever Within 48 Hours Sepsis New/Unexplained Change in Mental Status Sepsis Action Taken by Nursing 04/10/21 19:01 04/10/21 19:15 Temperature Temperature Source Pulse Rate 105 H 88 Pulse Rate [Finger] Pulse Rate from SpO2 Sensor 102 H 97 H Pulse Rhythm [Finger] Respiratory Rate 18 16 Respiratory Effort / Characteristics Respiratory Depth Blood Pressure 146/71 H Blood Pressure [Left Arm] Blood Pressure Mean 96 Blood Pressure Mean [Left Arm] Blood Pressure Position [Left Arm] Pulse Oximetry 95 93 Oxygen Delivery Method Sepsis Recent Fever Within 48 Hours Sepsis New/Unexplained Change in Mental Status Sepsis Action Taken by Nursing Laboratory Data Result diagrams: 04/10/21 17:17 04/10/21 17:17 Lab Results 04/10/21 04/10/21 04/10/21 Range/Units 17:17 17:17 17:51 WBC 7.25 (4.8-10.8) K/uL RBC 3.53 L (4.2-5.4) M/uL Hgb 10.7 L (12.0-16.0) g/dL Hct 33.4 L (37-47) % MCV 94.6 (80-100) fL MCH 30.3 (25-34) pg MCHC 32.0 (32-36) g/dL RDW Std Deviation 59.2 H (36.4-46.3) fL RDW Coeff of Gino 17.3 H (11.5-14.5) % Plt Count 284 (130-400) K/uL MPV 9.9 (7.4-10.4) fL Immature Gran % (Auto) 0.6 % Neut % (Auto) 54.4 % Lymph % (Auto) 23.7 % Wayne % (Auto) 19.7 % Eos % (Auto) 1.0 % Baso % (Auto) 0.6 % Neut # (Auto) 3.95 (1.4-6.5) K/uL Lymph # (Auto) 1.72 (1.2-3.4) K/uL Wayne # (Auto) 1.43 H (0.11-0.59) K/uL Eos # (Auto) 0.07 (0-0.5) K/uL Baso # (Auto) 0.04 (0-0.2) K/uL Immature Gran # (Auto) 0.04 H (0.00-0.02) K/uL Absolute Nucleated RBC 0.03 H (0-0) K/uL Nucleated RBC % (auto) 0.4 % Sodium 143 (136-145) mmol/L Potassium 3.1 L (3.5-5.1) mmol/L Chloride 106 (98-107) mmol/L Carbon Dioxide 27 (21-32) mmol/L Anion Gap 10.0 (3-11) BUN 10 (7-18) mg/dl Creatinine 1.07 (0.6-1.2) mg/dl Est Cr Clr Drug Dosing Not Reportable Est GFR ( Amer) 57.6 ml/min Est GFR (Non-Af Amer) 49.7 ml/min BUN/Creatinine Ratio 9.2 L (10-20) Glucose 105 H (70-99) mg/dl Calcium 9.6 (8.5-10.1) mg/dl Magnesium 2.0 (1.8-2.4) mg/dl Total Bilirubin 0.5 (0.2-1) mg/dl AST 19 (15-37) U/L ALT 15 (12-78) U/L Alkaline Phosphatase 125 H (45-117) U/L Troponin I 0.252 H* (0-0.045) ng/ml Total Protein 7.1 (6.4-8.2) gm/dl Albumin 3.1 L (3.4-5.0) gm/dl Globulin 4.0 (2.5-4.0) gm/dl Albumin/Globulin Ratio 0.8 L (0.9-2) COVID-19 Eval Order Covid19 at [facility] SARS-CoV-2 (PCR) (Negative) 04/10/21 Range/Units 17:51 WBC (4.8-10.8) K/uL RBC (4.2-5.4) M/uL Hgb (12.0-16.0) g/dL Hct (37-47) % MCV (80-100) fL MCH (25-34) pg MCHC (32-36) g/dL RDW Std Deviation (36.4-46.3) fL RDW Coeff of Gino (11.5-14.5) % Plt Count (130-400) K/uL MPV (7.4-10.4) fL Immature Gran % (Auto) % Neut % (Auto) % Lymph % (Auto) % Wayne % (Auto) % Eos % (Auto) % Baso % (Auto) % Neut # (Auto) (1.4-6.5) K/uL Lymph # (Auto) (1.2-3.4) K/uL Wayne # (Auto) (0.11-0.59) K/uL Eos # (Auto) (0-0.5) K/uL Baso # (Auto) (0-0.2) K/uL Immature Gran # (Auto) (0.00-0.02) K/uL Absolute Nucleated RBC (0-0) K/uL Nucleated RBC % (auto) % Sodium (136-145) mmol/L Potassium (3.5-5.1) mmol/L Chloride (98-107) mmol/L Carbon Dioxide (21-32) mmol/L Anion Gap (3-11) BUN (7-18) mg/dl Creatinine (0.6-1.2) mg/dl Est Cr Clr Drug Dosing Est GFR ( Amer) ml/min Est GFR (Non-Af Amer) ml/min BUN/Creatinine Ratio (10-20) Glucose (70-99) mg/dl Calcium (8.5-10.1) mg/dl Magnesium (1.8-2.4) mg/dl Total Bilirubin (0.2-1) mg/dl AST (15-37) U/L ALT (12-78) U/L Alkaline Phosphatase (45-117) U/L Troponin I (0-0.045) ng/ml Total Protein (6.4-8.2) gm/dl Albumin (3.4-5.0) gm/dl Globulin (2.5-4.0) gm/dl Albumin/Globulin Ratio (0.9-2) COVID-19 Eval Order SARS-CoV-2 (PCR) POSITIVE A* (Negative) Administered Medications Apixaban (Apixaban 5 Mg Tablet) 5 mg PO BID JANINE Stop: 05/10/21 20:59 Last Admin: 04/10/21 22:57 Dose: 5 mg Documented by: [id number] Aspirin (Aspirin 81 Mg Ectab) 81 mg PO BID JANINE Stop: 05/10/21 20:59 Last Admin: 04/10/21 22:58 Dose: 81 mg Documented by: [id number] Dexamethasone (Dexamethasone 4 Mg Tab) 6 mg PO DAILY JANINE Stop: 05/10/21 20:56 Last Admin: 04/10/21 22:57 Dose: 6 mg Documented by: [id number] Metoprolol Tartrate (Metoprolol Tartrate 25 Mg Tab) 25 mg PO BID JANINE Stop: 05/10/21 20:59 Last Admin: 04/10/21 22:57 Dose: 25 mg Documented by: [id number] Pantoprazole Sodium (Pantoprazole 40 Mg Tab) 40 mg PO HS JANINE Stop: 05/10/21 20:59 Last Admin: 04/10/21 22:58 Dose: 40 mg Documented by: [id number] Pregabalin (Pregabalin 75 Mg Cap) 75 mg PO HS JANINE Stop: 05/10/21 20:59 Last Admin: 04/10/21 22:58 Dose: 75 mg Documented by: [id number] Quetiapine Fumarate (Quetiapine Fumarate 150 Mg Tabcr) 150 mg PO HS JANINE Stop: 05/10/21 20:59 Last Admin: 04/10/21 22:57 Dose: 150 mg Documented by: [id number] Rosuvastatin Calcium (Rosuvastatin Calcium 10 Mg Tab) 10 mg PO HS JANINE Stop: 05/10/21 20:59 Last Admin: 04/10/21 22:58 Dose: 10 mg Documented by: [id number] Discontinued Medications Metoprolol Tartrate (Metoprolol Tartrate 1 Mg/Ml Vial) 5 mg IV NOW STA Stop: 04/10/21 17:38 Last Admin: 04/10/21 17:41 Dose: 5 mg Documented by: [id number] Metoprolol Tartrate (Metoprolol Tartrate 1 Mg/Ml Vial) 5 mg IV NOW STA Stop: 04/10/21 18:19 Last Admin: 04/10/21 18:29 Dose: 5 mg Documented by: [id number] Metoprolol Tartrate (Metoprolol Tartrate 1 Mg/Ml Vial) Confirm Administered Dose 5 mg IV .[facility] Stop: 04/10/21 21:09 Last Admin: 04/10/21 21:14 Dose: 5 mg Documented by: [id number] Ondansetron HCl (Ondansetron Inj 2 Mg/Ml 2 Ml Vial) 4 mg IV NOW STA Stop: 04/10/21 18:24 Last Admin: 04/10/21 18:29 Dose: 4 mg Documented by: [id number] Imaging Data Radiologist's Impression: Chest X-Ray 04/10/21 17:38 SINGLE VIEW CHEST CLINICAL HISTORY: Palpitations. Atrial fibrillation. FINDINGS: An AP, portable, upright chest radiograph is compared to study dated 03/31/2021. The heart is enlarged noting atherosclerotic calcification with uncoiling of the thoracic aorta. The pulmonary vasculature is noncongested. Chronic additional thickening similar to previous. There is mild elevation of the right hemidiaphragm. Scarring/atelectasis is noted at the lung bases. No airspace consolidation or large pleural effusion is identified. No pneumothorax is seen. The skeletal structures are osteopenic. The bony thorax is grossly intact. IMPRESSION: Cardiomegaly with no active disease in the chest. ACT 112: Negative or not required by law. Electronically signed by: Doug Mancilla M.D. 04/10/2021 6:14 PM Discharge Plan Visit Data Chief Complaint: Referred by Doctor Stated Complaint: REFERRED BY PCP ED Provider: Farhan Boss Discharge Problem: Atrial fibrillation with rapid ventricular response, Elevated troponin I level, Hypokalemia Patient Disposition: Admitted As Inpatient Discharge Instructions Interventions: ED Discharge Assessment Last Done: 04/10/21 20:04
--- NOTE | 2021-04-10 19:17 | History & Physical Report ---
Date of Service April 10, 2021 Assessment & Plan (1) Atrial fibrillation with rapid ventricular response: Patient with no previous history of atrial fibrillation, anticoagulated for DVT Admit to a monitored bed We will start oral metoprolol at 25 mg p.o. every 12h. Hold Bystolic. Consider IV Cardizem versus drip if tachycardia continues Patient is already anticoagulated with Eliquis 5 mg every 12 hours We will check 2D echo Check TSH Check troponins Patient follows with Dr. Metzger, will consult for further management (2) Hypertension: Medications as per outpatient We will hold Bystolic in favor of metoprolol (3) GERD (gastroesophageal reflux disease): Previous GI bleed, seems to have resolved. 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 Patient is pleasant and historian. Patient had initially had a intertrochanteric hip fracture and was placed on Cou madin and Lovenox post surgery. She had been discharged to rehab but returned on 03/31 with anemia and possible melanotic stool. At that time she had an EGD that did not show any active bleeding. She was changed to Eliquis 5 mg every 12 hours and was once again discharged to rehab. Patient tells me she has been home for approximately a week. She has been doing well without any complaints and has been ambulating without significant pain. Earlier today, the patient's home PT came to visit. During the evaluation, she was found to be extremely tachycardic. The patient did not really have any symptoms this and specifically denied palpitations, chest pain, shortness of breath, or dyspnea on exertion. The therapist made contact with the patient's primary care physician and it was suggested the patient presents to the emergency room for further evaluation. On presentation, she was found to be in atrial fibrillation with a rate of around 150. In the ER, she was given metoprolol 5 mg IV x2 doses. She is already anticoagulated with Eliquis as noted above. At the time my evaluation, patient's blood pressure was acceptable in the 130s. Her heart rate was [id number] and had remained in atrial fibrillation. Patient denied any symptoms as noted above and continues to feel well. Patient is now being admitted for further treatment of her new onset atrial fibrillation with RVR. Allergies Allergy/AdvReac Type Severity Reaction Status Date / Time metoclopramide Allergy Intermediate ESSENTIAL Verified 04/10/21 17:53 TREMORS clopidogrel Allergy Mild HIVES Verified 04/10/21 17:53 diazepam Allergy Mild DEPRESSION Verified 04/10/21 17:53 diltiazem Allergy Mild Light Verified 04/10/21 17:53 headed erythromycin base Allergy Mild EES, TAKES Verified 04/10/21 17:53 Z-PACKS W/O RXN gabapentin Allergy Mild States Verified 04/10/21 17:53 hands catch fire latex Allergy Mild rips skin Verified 04/10/21 17:53 off lisinopril Allergy Mild COUGH Verified 04/10/21 17:53 losartan Allergy Mild HIVES Verified 04/10/21 17:53 micafungin Allergy Mild rash Verified 04/10/21 17:53 oxycodone Allergy Mild INC. Verified 03/31/21 17:41 DEPRESSION Penicillins Allergy Mild Diarrhea Verified 03/31/21 17:41 promethazine Allergy Mild TROUBLE Verified 03/31/21 17:41 FOCUSING SPEAKING AT HIGHER DOSES Sulfa (Sulfonamide Allergy Mild SKIN Verified 03/31/21 17:41 Antibiotics) BECOMES PHOTOSENSITIVE AND BECOMES RED bupropion Allergy Unknown unknown Verified 03/31/21 17:41 dicyclomine Allergy Unknown Unknown Verified 03/31/21 17:41 potassium chloride Allergy Unknown Unknown Verified 03/31/21 17:41 sucralfate Allergy Unknown Unknown Verified 03/31/21 17:41 [id number] Reductase AdvReac Intermediate Diarrhea Verified 03/31/21 17:41 Inhibitor amoxicillin AdvReac Mild DIARRHEA Verified 03/31/21 17:41 clavulanic acid AdvReac Mild DIARRHEA Verified 03/31/21 17:41 hydrocodone AdvReac Mild "dont like Verified 03/31/21 17:41 how it makes me feel" Home Medications Medication Instructions Recorded Confirmed Type dexlansoprazole 60 mg PO HS 01/01/19 04/10/21 History lamotrigine 150 mg PO QAM 01/01/19 04/10/21 History nitroglycerin [Nitrostat] 0.4 mg SUBLINGUAL UD PRN 01/01/19 04/10/21 History quetiapine 150 mg PO HS 01/01/19 04/10/21 History roflumilast 500 mcg PO QAM 01/01/19 04/10/21 History Oxygen Home #1 ea 07/21/20 04/10/21 History cholecalciferol (vitamin D3) 25 25 mcg PO DAILY 01/11/21 04/10/21 History mcg (1,000 unit) capsule cyanocobalamin (vitamin B-12) 5,000 mcg PO DAILY 01/11/21 04/10/21 History 5,000 mcg capsule ipratropium 20 mcg-albuterol 100 2 puff INHALATION Q6H PRN g 01/11/21 04/10/21 History mcg/actuation mist for inhalation rosuvastatin 10 mg tablet 10 mg PO HS 01/11/21 04/10/21 History aspirin 81 mg PO BID 39 Days #78 tab 03/11/21 04/10/21 Rx ferrous gluconate 324 mg PO BIDM #60 tab 03/11/21 04/10/21 Rx ondansetron HCl [Zofran] 4 mg PO Q8H PRN #6 tab 03/11/21 04/10/21 Rx oxycodone 5 - 10 mg PO Q6 PRN #10 tab 03/11/21 04/10/21 Rx pregabalin 75 mg PO HS #30 cap 03/11/21 04/10/21 Rx apixaban [Eliquis] 5 mg PO BID #30 tab 04/04/21 04/10/21 Rx cholestyramine-aspartame 4 g PO BID@1000,2200 PRN 04/10/21 04/10/21 History [Cholestyramine Light] nebivolol [Bystolic] 5 mg PO DAILY 04/10/21 04/10/21 History Past Med/Surg History Medical History Anemia REASON FOR COLONOSCOPY 07/2019 Bipolar 1 disorder Breast cancer (08/23/14) "Abnormal bilateral mammogram Status post core needle biopsy 08/23/2014 revealing intraductal papilloma on the left Right breast showed invasive ductal carcinoma Status post right lumpectomy and sentinel lymph node biopsy 10/08/2014 Stage [id number] Status post completion of radiation therapy 12/24/2014 utilizing hypo- fractionation received 5000 cGy" Breast cancer, right 2013--stage 1--lumpectomy and radiation CAD (coronary artery disease) Change in vision Chronic obstructive pulmonary disease inhaler daily Degenerative joint disease Depression Fall GERD (gastroesophageal reflux disease) History of colon polyps Hyperlipidemia Hypertension Hypothyroidism Medical marijuana use Myocardial Infarction "silent" in --follows with Dr. Gibbs On home oxygen therapy 2L N/C at hs Pancreatitis hx of Papilloma of breast left Sleep apnea Temporal arteritis Unstable angina Unstable angina Surgical History History of bilateral cataract extraction History of bilateral tubal ligation History of breast surgery removal of papilloma of left breast History of cardiac cath x3--last ---no stents History of cholecystectomy History of colonoscopy History of esophagogastroduodenoscopy (EGD) History of lumpectomy of right breast History of right breast biopsy malignant History of tooth extraction all teeth removed History of total hysterectomy with bilateral salpingo-oophorectomy (BSO) Family History Grandfather (Paternal) Family history of diabetes mellitus Other No family history of adverse response to anesthesia Social History Smoking Status: Former smoker Cigarettes Per Day: 20 a day; Second Hand Exposure: No; Hx Alcohol Use: No Hx Substance Use: No Preferred Language: Ukrainian Communication Ability: Effective Node Js Developer Required: No Beliefs That Will Affect Care: None Current Living Situation: Spouse Feels Safe at Home: Yes Assistive Devices: Oxygen - at Night Review of Systems Constitutional: no fever, no chills, no weakness and no anorexia Respiratory: no chest congestion, no dyspnea, no dyspnea on exertion, no pain on inspiration and no pain with cough Cardiovascular: no chest pain, no dyspnea, no orthopnea, no palpitations, no lightheadedness and no edema Gastrointestinal: no abdominal pain, no heartburn, no nausea, no vomiting, no dysphagia, no change in bowel habits, no constipation and no diarrhea/loose stools Genitourinary: no dysuria, no difficulty urinating, no urinary frequency, no urinary hesitancy, no urinary urgency, no urinary incontinence and no post-void dribbling Musculoskeletal: no back pain, no neck pain, no radicular pain, no loss of height and no joint pain Integumentary: no acne and no rash Neurologic: no falls Psychiatric: see below Physical Exam Constitutional: cooperative and comfortable; no acute distress Neck: trachea midline, no thyromegaly Respiratory: normal respiratory effort Auscultation: lungs clear to auscultation bilaterally; no crackles, no rales, no rhonchi and no wheezes Cardiovascular: Rate/Rhythm: + tachycardic and + irregularly irregular Vessels: no JVD and no carotid bruit Extremities: no edema Gastrointestinal (Abdomen): normal bowel sounds, soft, nontender, no hepatosplenomegaly Musculoskeletal: no cyanosis or clubbing, extremities motor strength 5/5 Neurologic: PERRL, EOMI, accommodation nl, no face palsy, no dysarthria Psychiatric: A+Ox3, euthymic affect Results & Data Results & Data ([facility]) Vital Signs (Past 12 Hours) Vital Signs Temp Pulse Pulse Resp BP BP Pulse Ox 04/10/21 18:31 120 H 22 94 04/10/21 18:30 122 H 24 145/89 H 94 04/10/21 18:29 110 H 145/89 H 04/10/21 18:15 99 H 19 92 04/10/21 18:01 104 H 25 H 96 04/10/21 18:00 128 H 20 129/82 96 04/10/21 17:55 107 H 23 130/86 96 04/10/21 17:54 96 H 20 130/86 97 04/10/21 17:50 122 H 20 122/78 93 04/10/21 17:49 126 H 21 122/78 93 04/10/21 17:45 154 H 13 94 04/10/21 17:42 158 H 14 169/83 H 86 L 04/10/21 17:41 145 H 169/83 H 04/10/21 17:31 166 H 17 145/100 H 95 04/10/21 17:30 162 H 22 94 04/10/21 17:29 155 H 16 94 04/10/21 17:18 150 H 20 119/87 93 04/10/21 17:02 133 H 16 117/70 97 04/10/21 15:18 36.6 C 84 16 121/72 99 PG Care Time/CCT Total # of Minutes Spent Total Time Spent with Patient: Total time spent is greater than 50% in coordination of care (as documented) at patient's floor/unit and/or counseling patient: Coding Level of Care Code 04165 Initial Inpt Care Lvl 3 Diagnoses Atrial fibrillation with rapid ventricular response I48.91 Hypertension I10 Hypertension type: essential hypertension GERD (gastroesophageal reflux disease) K21.9 Hyperlipidemia E78.5 Hyperlipidemia type: unspecified DVT (deep venous thrombosis) I82.409 (1) Hyperlipidemia Hyperlipidemia type: unspecified Qualified Code(s): E78.5 - Hyperlipidemia, unspecified (2) Hypertension Hypertension type: essential hypertension Qualified Code(s): I10 - Essential (primary) hypertension
[2021-04-10] MEDS ORDERED: NITROGLYCERIN SL 0.4 MG/TAB TAB SL PRN (20:57)
[2021-04-10] MEDS ORDERED: IPRATROPIUM BROMIDE/ALBUTEROL respimat INH INH PRN (20:57)
[2021-04-10] MEDS ORDERED: METOPROLOL TARTRATE 1 MG/ML VIAL IV ONE (21:08)
[2021-04-10] MEDS ORDERED: Albuterol HFA 8 GM Inhaler (Combivent Respimat P&T Subs) INH PRN (21:13)
[2021-04-10] MEDS ORDERED: Ipratropium HFA Inhaler (Combivent Respimat P&T Subs) INH PRN (21:13)
[2021-04-10] MEDS ORDERED: CHOLESTYRAMINE LIGHT 4 GM PKT PO PRN (22:00)
[2021-04-10] MEDS: dexAMETHasone 4 MG TAB PO SCH (22:57)
[2021-04-10] MEDS: METOPROLOL TARTRATE 25 MG TAB PO SCH (22:57)
[2021-04-10] MEDS: APIXABAN 5 MG TABLET PO SCH (22:57)
[2021-04-10] MEDS: PANTOprazole 40 MG TAB PO SCH (22:58)
[2021-04-10] MEDS: PREGABALIN 75 MG CAP PO SCH (22:58)
[2021-04-10] MEDS: ASPIRIN 81 MG ECTAB PO SCH (22:58)
[2021-04-10] MEDS: ROSUVASTATIN CALCIUM 10 MG TAB PO SCH (22:58)
[2021-04-10 23:08] LABS: Troponin I 0.252 ng/ml (0-0.045)
[2021-04-11] MEDS ORDERED: POTASSIUM CHLORIDE CRTAB 20 MEQ TABCR PO STA (03:51)
[2021-04-11] MEDS ORDERED: POTASSIUM CHLORIDE 20 MEQ in SODIUM CHLORIDE 0.9% 500 ML IV ONE (04:30)
[2021-04-11] MEDS ORDERED: METOPROLOL TARTRATE 1 MG/ML VIAL IV STA (06:49)
[2021-04-11] MEDS ORDERED: dilTIAZem HCl 5 MG/ML 5 ML VIAL IV STA (06:55)
[2021-04-11] MEDS ORDERED: STAT IV Infusion **Titration per Protocol STA ×2 (06:55→12:13)
[2021-04-11 07:55] LABS: Appearance Urine Turbid (Clear); Bacteria Urine Automated Negative (Negative); Blood Urine Negative (Negative); Color Urine Dark Yellow; Epithelial Cell Urine Auto >30 /lpf (0-5); Glucose Urine UA Negative (Negative); Ketones Urine 1+ (Negative); Leukocyte Esterase Urine 1+ (Negative); Nitrite Urine Negative (Negative); Protein Urine 1+ (Negative); RBC Urine Automated 0-4 /hpf (0-4); Specific Gravity Urine 1.022 (1.000-1.030); Urobilinogen Urine Negative (Negative); WBC Urine Automated >30 /hpf (0-5); pH Urine 5.5 (4.5-7.5)
[2021-04-11 08:01] LABS: Bilirubin Urine 2+ (Negative)
[2021-04-11] MEDS: ASPIRIN 81 MG ECTAB PO SCH ×2 (08:19→21:01)
[2021-04-11] MEDS: ROFLUMILAST 500 MCG TAB PO SCH (08:19)
[2021-04-11] MEDS: dexAMETHasone 4 MG TAB PO SCH (08:19)
[2021-04-11] MEDS: lamoTRIgine 100 MG TAB PO SCH (08:20)
[2021-04-11] MEDS: FERROUS GLUCONATE 324 MG TAB PO SCH ×2 (08:20→18:48)
[2021-04-11] MEDS: CHOLECALCIFEROL 1,000 UNITS 25 MCG TAB PO SCH (08:20)
[2021-04-11] MEDS: CYANOCOBALAMIN (VITAMIN B-12) 2,500 MCG TAB.SUBL SL SCH (08:20)
[2021-04-11] MEDS: APIXABAN 5 MG TABLET PO SCH ×2 (08:20→21:01)
[2021-04-11] MEDS: METOPROLOL TARTRATE 25 MG TAB PO SCH ×3 (08:20→21:01)
[2021-04-11 08:43] LABS: Amorphous Sediment Urine Present (None Prsent)
[2021-04-11] MEDS: dilTIAZem HCL 125 MG in DEXTROSE 5% 100 ML IV SCH ×2 (09:08→21:37)
[2021-04-11 10:04] LABS: BUN Creatinine Ratio 10.8 (10-20); Calcium 8.6 mg/dl (8.5-10.1); Creatinine Clr Calc Pharmacy 40.6 ml/min; Est GFR (African American) 60.3 ml/min; Magnesium 1.9 mg/dl (1.8-2.4)
--- NOTE | 2021-04-11 11:22 | Hospitalist Progress Note ---
Date of Service April 11, 2021 Assessment & Plan (1) Atrial fibrillation with rapid ventricular response: Patient with no previous history of atrial fibrillation, anticoagulated for DVT changed Bystolic to Lopressor 25mg BID, will increase to TID for rate control suspect catecholamines playing a big role in tachycardia Cardizem drip at 5mg/hr is controlling HR Amiodarone bolus and drip to try to convert to sinus rhythm, can stop Cardizem if she converts Patient is already anticoagulated with Eliquis 5 mg every 12 hours echco still pending appreciate consult from Dr. Bales (2) Hypertension: We will hold Bystolic in favor of metoprolol BP low normal (3) GERD (gastroesophageal reflux disease): Previous GI bleed, seems to have resolved. Patient is not anemic on presentation Continue PPI as ordered, patient is on Dexilant which will be changed to Protonix while inpatient (4) Hyperlipidemia: Continue Crestor 10 mg nightly or pharmacy equivalent while inpatient (5) DVT (deep venous thrombosis): Eliquis as ordered Admission and Anticipated Discharge Date Admission Date: April 10, 2021 Subjective rates went up to 160's this morning despite Lopressor PO and several IV pushes started on Diltiazem drip, better control on 5mg/hr d/w Dr. Bales, he would like to try to convert to sinus rhythm, recommended Amiodarone bolus and drip HR better in 70-90's discussed with RN, told them to stop the Cardizem drip if she converts to sinus rhythm on the Amiodarone increased metoprolol to 25mg TID as she admits that she has a lot of anxiety that drives her rapid rates she is eating well, no COVID symptoms at all, she had her second Pfizer shot in January 2021 Review of Systems Review of Systems: All systems reviewed & are unremarkable except as noted in Subjective Psychiatric: + anxiety Physical Exam Constitutional: WD/WN, vitals as above no acute distress Neck: trachea midline, no thyromegaly Respiratory: normal respiratory effort, lungs clear to auscultation Cardiovascular: Rate/Rhythm: + tachycardic and + irregularly irregular Heart Sounds: normal S1 and normal S2; no murmur Vessels: normal peripheral pulses; no JVD Extremities: normal capillary refill; no edema Gastrointestinal (Abdomen): normal bowel sounds, soft, nontender, no hepatosplenomegaly Musculoskeletal: no cyanosis or clubbing, extremities motor strength 5/5 Skin: no rashes, warm and dry Neurologic: patellar DTR's 2+ bilat, sensation intact and PERRL, EOMI, accommodation nl, no face palsy, no dysarthria Psychiatric: Orientation: alert, oriented x 3 and cooperative Affect: + anxious affect Lymphatic: no cervical or axillary lymphadenopathy Results & Data Results & Data ([facility]) Vital Signs (Past 12 Hours) Vital Signs Temp Pulse Pulse Resp BP BP Pulse Ox 04/11/21 08:00 37 C 159 H 159 H 14 143/72 H 95 04/11/21 07:27 159 H 118/83 04/11/21 04:30 36.2 C L 109 H 20 122/75 97 Laboratory Results Laboratory Results - last 24 hr 04/10/21 04/10/21 04/10/21 17:17 17:17 17:51 WBC 7.25 RBC 3.53 L Hgb 10.7 L Hct 33.4 L MCV 94.6 MCH 30.3 MCHC 32.0 RDW Std Deviation 59.2 H RDW Coeff of Gino 17.3 H Plt Count 284 MPV 9.9 Immature Gran % (Auto) 0.6 Neut % (Auto) 54.4 Lymph % (Auto) 23.7 Dickenson % (Auto) 19.7 Eos % (Auto) 1.0 Baso % (Auto) 0.6 Neut # (Auto) 3.95 Lymph # (Auto) 1.72 Dickenson # (Auto) 1.43 H Eos # (Auto) 0.07 Baso # (Auto) 0.04 Immature Gran # (Auto) 0.04 H Absolute Nucleated RBC 0.03 H Nucleated RBC % (auto) 0.4 Sodium 143 Potassium 3.1 L Chloride 106 Carbon Dioxide 27 Anion Gap 10.0 BUN 10 Creatinine 1.07 Est Cr Clr Drug Dosing Not Reportable Est GFR ( Amer) 57.6 Est GFR (Non-Af Amer) 49.7 BUN/Creatinine Ratio 9.2 L Glucose 105 H Calcium 9.6 Magnesium 2.0 Total Bilirubin 0.5 AST 19 ALT 15 Alkaline Phosphatase 125 H Troponin I 0.252 H* Total Protein 7.1 Albumin 3.1 L Globulin 4.0 Albumin/Globulin Ratio 0.8 L Urine Color Urine Appearance Urine pH Ur Specific [place] Urine Protein Urine Glucose (UA) Urine Ketones Urine Blood Urine Nitrite Urine Bilirubin Urine Urobilinogen Ur Leukocyte Esterase Urine WBC (Auto) Urine RBC (Auto) U Hyaline Cast (Auto) U Epithel Cells (Auto) Urine Bacteria (Auto) Urine Crystals Amorphous Sediment Urine Yeast COVID-19 Eval Order Covid19 at [facility] SARS-CoV-2 (PCR) 04/10/21 04/10/21 04/11/21 17:51 23:59 07:25 WBC RBC Hgb Hct MCV MCH MCHC RDW Std Deviation RDW Coeff of Gino Plt Count MPV Immature Gran % (Auto) Neut % (Auto) Lymph % (Auto) [place] % (Auto) Eos % (Auto) Baso % (Auto) Neut # (Auto) Lymph # (Auto) [place]enson # (Auto) Eos # (Auto) Baso # (Auto) Immature Gran # (Auto) Absolute Nucleated RBC Nucleated RBC % (auto) Sodium Potassium Chloride Carbon Dioxide Anion Gap BUN Creatinine Est Cr Clr Drug Dosing Est GFR ( Amer) Est GFR (Non-Af Amer) BUN/Creatinine Ratio Glucose Calcium Magnesium Total Bilirubin AST ALT Alkaline Phosphatase Troponin I 0.224 H* Total Protein Albumin Globulin Albumin/Globulin Ratio Urine Color Dark Yellow Urine Appearance Turbid A Urine pH 5.5 Ur Specific [place] 1.022 Urine Protein 1+ H Urine Glucose (UA) Negative Urine Ketones 1+ H Urine Blood Negative Urine Nitrite Negative Urine Bilirubin 2+ H Urine Urobilinogen Negative Ur Leukocyte Esterase 1+ H Urine WBC (Auto) >30 H Urine RBC (Auto) 0-4 U Hyaline Cast (Auto) 5-10 H U Epithel Cells (Auto) >30 H Urine Bacteria (Auto) Negative Urine Crystals Not Reportable Amorphous Sediment Present A Urine Yeast Not Reportable COVID-19 Eval Order SARS-CoV-2 (PCR) POSITIVE A* 04/11/21 09:15 WBC RBC Hgb Hct MCV MCH MCHC RDW Std Deviation RDW Coeff of Gino Plt Count MPV Immature Gran % (Auto) Neut % (Auto) Lymph % (Auto) [place] % (Auto) Eos % (Auto) Baso % (Auto) Neut # (Auto) Lymph # (Auto) [place] # (Auto) Eos # (Auto) Baso # (Auto) Immature Gran # (Auto) Absolute Nucleated RBC Nucleated RBC % (auto) Sodium 141 Potassium 4.0 D Chloride 110 H Carbon Dioxide 25 Anion Gap 6.0 BUN 11 Creatinine 1.03 Est Cr Clr Drug Dosing 40.6 Est GFR ( Amer) 60.3 Est GFR (Non-Af Amer) 52.0 BUN/Creatinine Ratio 10.8 Glucose 172 H Calcium 8.6 Magnesium 1.9 Total Bilirubin AST ALT Alkaline Phosphatase Troponin I Total Protein Albumin Globulin Albumin/Globulin Ratio Urine Color Urine Appearance Urine pH Ur Specific [place] Urine Protein Urine Glucose (UA) Urine Ketones Urine Blood Urine Nitrite Urine Bilirubin Urine Urobilinogen Ur Leukocyte Esterase Urine WBC (Auto) Urine RBC (Auto) U Hyaline Cast (Auto) U Epithel Cells (Auto) Urine Bacteria (Auto) Urine Crystals Amorphous Sediment Urine Yeast COVID-19 Eval Order SARS-CoV-2 (PCR) Medications Administered Current Inpatient Medications Acetaminophen (Acetaminophen 325 Mg Tab) 650 mg PO Q4H PRN PRN Reason: Pain or Fever Stop: 05/10/21 20:56 Albuterol (Albuterol Hfa 8 Gm Inhaler (Combivent Respimat P&T Subs)) 2 puffs INH Q6H PRN PRN Reason: Shortness Of Breath Stop: 05/10/21 21:12 Apixaban (Apixaban 5 Mg Tablet) 5 mg PO BID [facility] Stop: 05/10/21 20:59 Last Admin: 04/11/21 08:20 Dose: 5 mg Documented by: Aspirin (Aspirin 81 Mg Ectab) 81 mg PO BID [facility] Stop: 05/10/21 20:59 Last Admin: 04/11/21 08:19 Dose: 81 mg Documented by: Cholestyramine Resin (Cholestyramine Light 4 Gm Pkt) 4 gm PO BID@1000,2200 PRN PRN Reason: .. Stop: 05/10/21 21:59 Cyanocobalamin (Cyanocobalamin (Vitamin B-12) 2,500 Mcg Tab.Subl) 5,000 mcg SL DAILY [facility] Stop: 05/11/21 08:59 Last Admin: 04/11/21 08:20 Dose: 5,000 mcg Documented by: Dexamethasone (Dexamethasone 4 Mg Tab) 6 mg PO DAILY [facility] Stop: 05/10/21 20:56 Last Admin: 04/11/21 08:19 Dose: 6 mg Documented by: Ferrous Gluconate (Ferrous Gluconate 324 Mg Tab) 324 mg PO BIDM [facility] Stop: 05/11/21 07:59 Last Admin: 04/11/21 08:20 Dose: 324 mg Documented by: Diltiazem HCl 125 mg/ Dextrose 125 mls @ 5 mls/hr IV .Q24H JANINE; Protocol Stop: 05/11/21 07:14 Last Admin: 04/11/21 09:08 Dose: 5 mg/hr, 5 mls/hr Documented by: Ipratropium [place] (Ipratropium Hfa Inhaler (Combivent Respimat P&T Subs)) 2 puffs INH Q6H PRN PRN Reason: Shortness Of Breath Stop: 05/10/21 21:12 Lamotrigine (Lamotrigine 100 Mg Tab) 150 mg PO QAM [facility] Stop: 05/11/21 08:59 Last Admin: 04/11/21 08:20 Dose: 150 mg Documented by: Metoprolol Tartrate (Metoprolol Tartrate 25 Mg Tab) 25 mg PO BID [facility] Stop: 05/10/21 20:59 Last Admin: 04/11/21 08:20 Dose: 25 mg Documented by: Nitroglycerin (Nitroglycerin Sl 0.4 Mg/Tab Tab) 0.4 mg SL UD PRN PRN Reason: Angina Stop: 05/10/21 20:56 Ondansetron HCl (Ondansetron Inj 2 Mg/Ml 2 Ml Vial) 4 mg IV Q6H PRN PRN Reason: Nausea Stop: 05/10/21 20:56 Oxycodone HCl (Oxycodone Hcl Ir 5 Mg Tab (Immediate Release)) 5 - 10 mg PO Q6 PRN PRN Reason: pain Stop: 04/24/21 21:09 Pantoprazole Sodium (Pantoprazole 40 Mg Tab) 40 mg PO HS [facility] Stop: 05/10/21 20:59 Last Admin: 04/10/21 22:58 Dose: 40 mg Documented by: Pregabalin (Pregabalin 75 Mg Cap) 75 mg PO HS [facility] Stop: 05/10/21 20:59 Last Admin: 04/10/21 22:58 Dose: 75 mg Documented by: Quetiapine Fumarate (Quetiapine Fumarate 150 Mg Tabcr) 150 mg PO HS [facility] Stop: 05/10/21 20:59 Last Admin: 04/10/21 22:57 Dose: 150 mg Documented by: Roflumilast (Roflumilast 500 Mcg Tab) 500 mcg PO QAM JANINE Stop: 05/11/21 08:59 Last Admin: 04/11/21 08:19 Dose: 500 mcg Documented by: Rosuvastatin Calcium (Rosuvastatin Calcium 10 Mg Tab) 10 mg PO HS [facility] Stop: 05/10/21 20:59 Last Admin: 04/10/21 22:58 Dose: 10 mg Documented by: Vitamin D (Cholecalciferol 1,000 Units 25 Mcg Tab) 1,000 units PO DAILY JANINE Stop: 05/11/21 08:59 Last Admin: 04/11/21 08:20 Dose: 1,000 units Documented by: PG Care Time/CCT Total # of Minutes Spent Total Time Spent with Patient: Total time spent is greater than 50% in coordination of care (as documented) at patient's floor/unit and/or counseling patient: Coding Level of Care Code 56990 Subseq Hosp Care Lvl 2 Diagnoses Atrial fibrillation with rapid ventricular response I48.91 Hypertension I10 Hypertension type: essential hypertension GERD (gastroesophageal reflux disease) K21.9 Hyperlipidemia E78.5 Hyperlipidemia type: unspecified DVT (deep venous thrombosis) I82.409 (1) Hyperlipidemia Hyperlipidemia type: unspecified Qualified Code(s): E78.5 - Hyperlipidemia, unspecified (2) Hypertension Hypertension type: essential hypertension Qualified Code(s): I10 - Essential (primary) hypertension
[2021-04-11] MEDS ORDERED: AMIODARONE / D5W 150 MG/100 ML BAG IV STA (12:13)
[2021-04-11] MEDS ORDERED: 0.2 MICRON FILTER SET 1 EA IV ONE (12:13)
[2021-04-11] MEDS ORDERED: AMIODARONE IV BOLUS & DRIP IV STA (12:13)
--- NOTE | 2021-04-11 12:29 | Cardiology Consultation ---
Date of Consultation April 11, 2021 Assessment & Plan (1) Atrial fibrillation with rapid ventricular response: -completely asymptomatic. -fortunately, she is on Eliquis for her recent DVT. -hypokalemia noted. -agree with increasing metoprolol tartrate. -favor initiation of intravenous amiodarone. -would check a TSH level. (2) Elevated troponin I level: -likely a supply demand mismatch from her rapid atrial fibrillation. -this does not represent an acute coronary syndrome. (3) CAD (coronary artery disease): -coronary anatomy described above. (4) Hypertension: -adequate control on current regimen. (5) Hyperlipidemia: -continue rosuvastatin. History of Present Illness Attending Physician: Chago Gould, History of Present Illness Mrs. Collier is a 80-year-old female admitted yesterday with atrial fibrillation and a rapid ventricular response. This consultation was ordered to assist in her cardiac management. Of note, the patient typically follows with Dr. Gibbs in the outpatient setting. The patient's recent history began on March 07 when she suffered a mechanical fall and fractured her left hip. She had an inter trochanteric nail placed on the 08 of March and was then discharged to [facility] on the 11 of March. Unfortunately, the patient developed a left lower extremity DVT and was placed on Lovenox and Coumadin. The patient was eventually discharged from [facility] on March 30. The patient was readmitted on March 31 with nausea, vomiting, and diarrhea. Her stools were heme-positive and her hemoglobin was decreased at 8.1. INR was supratherapeutic at 3.1. The patient eventually had an upper endoscopy which failed to show any abnormalities. Her melanotic appearing stool was felt secondary to her iron supplements. Her anticoagulation was changed to Eliquis at the time of her discharge. Yesterday, patient was undergoing home physical therapy. The therapist noted that her pulse was rapid and irregular. She was advised to proceed emergency room for further care. On arrival here, patient was noted to be in atrial fibrillation with a rapid ventricular response. She was started on a diltiazem drip with improved control of her ventricular response. At no time has the patient experienced palpitations or any symptoms related to her atrial fibrillation. The patient has a longstanding history of coronary artery disease. A cardiac catheterization 2001 noted a totally obstructed right coronary artery with excellent collateral flow. 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 A cardiac catheterization performed in June 2007 noted severe proximal stenosis of the anomalous left circumflex. This was a very small vessel without side branches and medical management was recommended. Currently, patient is resting comfortably in bed without complaints. Past medical and surgical history 1. Coronary artery disease-see above 2. Hypertension 3. Hypercholesterolemia 4. New onset paroxysmal atrial fibrillation-April 10, 2021 5. Left cerebellar CVA 6. COPD 7. GERD 8. Esophageal stricture 9. Hypothyroidism 10. Bipolar disorder 11. Anxiety 12. Colonic polyps 13. DJD 14. Breast carcinoma-lumpectomy and XRT, 2013 15. Obstructive sleep apnea 16. SUKI/BSO 17. Cholecystectomy 18. Bilateral intra-ocular lens implants 19. Tubal ligation Social history and lives with her Quit tobacco use March 2020 Rare alcohol Family history Noncontributory Review of systems A 10 point review systems was undertaken and negative except for that described above. Allergies Allergy/AdvReac Type Severity Reaction Status Date / Time metoclopramide Allergy Intermediate ESSENTIAL Verified 04/10/21 17:53 TREMORS clopidogrel Allergy Mild HIVES Verified 04/10/21 17:53 diazepam Allergy Mild DEPRESSION Verified 04/10/21 17:53 diltiazem Allergy Mild Light Verified 04/10/21 17:53 headed erythromycin base Allergy Mild EES, TAKES Verified 04/10/21 17:53 Z-PACKS W/O RXN gabapentin Allergy Mild States Verified 04/10/21 17:53 hands catch fire latex Allergy Mild rips skin Verified 04/10/21 17:53 off lisinopril Allergy Mild COUGH Verified 04/10/21 17:53 losartan Allergy Mild HIVES Verified 04/10/21 17:53 micafungin Allergy Mild rash Verified 04/10/21 17:53 oxycodone Allergy Mild INC. Verified 03/31/21 17:41 DEPRESSION Penicillins Allergy Mild Diarrhea Verified 03/31/21 17:41 promethazine Allergy Mild TROUBLE Verified 03/31/21 17:41 FOCUSING SPEAKING AT HIGHER DOSES Sulfa (Sulfonamide Allergy Mild SKIN Verified 03/31/21 17:41 Antibiotics) BECOMES PHOTOSENSITIVE AND BECOMES RED bupropion Allergy Unknown unknown Verified 03/31/21 17:41 dicyclomine Allergy Unknown Unknown Verified 03/31/21 17:41 potassium chloride Allergy Unknown Unknown Verified 03/31/21 17:41 sucralfate Allergy Unknown Unknown Verified 03/31/21 17:41 [id number]-[id number] Reductase AdvReac Intermediate Diarrhea Verified 03/31/21 17:41 Inhibitor amoxicillin AdvReac Mild DIARRHEA Verified 03/31/21 17:41 clavulanic acid AdvReac Mild DIARRHEA Verified 03/31/21 17:41 hydrocodone AdvReac Mild "dont like Verified 03/31/21 17:41 how it makes me feel" Home Medications Medication Instructions Recorded Confirmed Type dexlansoprazole 60 mg PO HS 01/01/19 04/10/21 History lamotrigine 150 mg PO QAM 01/01/19 04/10/21 History nitroglycerin [Nitrostat] 0.4 mg SUBLINGUAL UD PRN 01/01/19 04/10/21 History quetiapine 150 mg PO HS 01/01/19 04/10/21 History roflumilast 500 mcg PO QAM 01/01/19 04/10/21 History Oxygen Home #1 ea 07/21/20 04/10/21 History cholecalciferol (vitamin D3) 25 25 mcg PO DAILY 01/11/21 04/10/21 History mcg (1,000 unit) capsule cyanocobalamin (vitamin B-12) 5,000 mcg PO DAILY 01/11/21 04/10/21 History 5,000 mcg capsule ipratropium 20 mcg-albuterol 100 2 puff INHALATION Q6H PRN g 01/11/21 04/10/21 History mcg/actuation mist for inhalation rosuvastatin 10 mg tablet 10 mg PO HS 01/11/21 04/10/21 History aspirin 81 mg PO BID 39 Days #78 tab 03/11/21 04/10/21 Rx ferrous gluconate 324 mg PO BIDM #60 tab 03/11/21 04/10/21 Rx ondansetron HCl [Zofran] 4 mg PO Q8H PRN #6 tab 03/11/21 04/10/21 Rx oxycodone 5 - 10 mg PO Q6 PRN #10 tab 03/11/21 04/10/21 Rx pregabalin 75 mg PO HS #30 cap 03/11/21 04/10/21 Rx apixaban [Eliquis] 5 mg PO BID #30 tab 04/04/21 04/10/21 Rx cholestyramine-aspartame 4 g PO BID@1000,2200 PRN 04/10/21 04/10/21 History [Cholestyramine Light] nebivolol [Bystolic] 5 mg PO DAILY 04/10/21 04/10/21 History Patient History Medical History Anemia REASON FOR COLONOSCOPY 07/2019 Bipolar 1 disorder Breast cancer (08/23/14) "Abnormal bilateral mammogram Status post core needle biopsy 08/23/2014 revealing intraductal papilloma on the left Right breast showed invasive ductal carcinoma Status post right lumpectomy and sentinel lymph node biopsy 10/08/2014 Stage [id number] Status post completion of radiation therapy 12/24/2014 utilizing hypo- fractionation received 5000 cGy" Breast cancer, right 2013--stage 1--lumpectomy and radiation CAD (coronary artery disease) Change in vision Chronic obstructive pulmonary disease inhaler daily Degenerative joint disease Depression Fall GERD (gastroesophageal reflux disease) History of colon polyps Hyperlipidemia Hypertension Hypothyroidism Medical marijuana use Myocardial Infarction "silent" in --follows with Dr. Gibbs On home oxygen therapy 2L N/C at hs Pancreatitis hx of Papilloma of breast left Sleep apnea Temporal arteritis Unstable angina Unstable angina Surgical History History of bilateral cataract extraction History of bilateral tubal ligation History of breast surgery removal of papilloma of left breast History of cardiac cath x3--last ---no stents History of cholecystectomy History of colonoscopy History of esophagogastroduodenoscopy (EGD) History of lumpectomy of right breast History of right breast biopsy malignant History of tooth extraction all teeth removed History of total hysterectomy with bilateral salpingo-oophorectomy (BSO) Family History Grandfather (Paternal) Family history of diabetes mellitus Other No family history of adverse response to anesthesia Social History Smoking Status: Former smoker Cigarettes Per Day: 20 a day; Second Hand Exposure: No; Hx Alcohol Use: No Hx Substance Use: No Preferred Language: Vietnamese Communication Ability: Effective Sample Taker Operator Required: No Beliefs That Will Affect Care: None Current Living Situation: Spouse Other Information That Helps Us Care for You: No Feels Safe at Home: Yes Safety Concerns: Feels Safe At This Time Assistive Devices: Denture - Upper, Denture - Lower and Oxygen - at Night Physical Exam Physical Exam: Exam per Dr. Gould as patient in [facility]. Results & Data ([facility]) Vital Signs (Past 12 Hours) Vital Signs Temp Pulse Pulse Resp BP BP Pulse Ox 04/11/21 08:00 37 C 159 H 159 H 14 143/72 H 95 04/11/21 07:27 159 H 118/83 04/11/21 04:30 36.2 C L 109 H 20 122/75 97 Laboratory Results CBC notes hemoglobin of 10.7, hematocrit 33.4, white count 7.25, and platelet count of 341202. Electrolytes note a sodium of 143, potassium 3.1, chloride 106, bicarb 27, BUN 10, creatinine 1.07, and glucose of 105. Magnesium level is normal at 2.0. Initial troponin was 0.252 with a follow-up value of 0.224. Diagnostic Findings EKG notes atrial fibrillation with a rapid ventricular response. There is evidence of LVH and a lateral ST and T-wave abnormality. Chest x-ray shows cardiomegaly without failure. PG Care Time/CCT Total # of Minutes Spent Total Time Spent with Patient: Total time spent is greater than 50% in coordination of care (as documented) at patient's floor/unit and/or counseling patient: Coding Level of Care Code 68623 Initial Inpt Care Lvl 3 Diagnoses Atrial fibrillation with rapid ventricular response I48.91 Elevated troponin I level R77.8 CAD (coronary artery disease) I25.10 Coronary Disease-Associated Artery/Lesion type: [place] artery [place] vs. transplanted heart: [place] heart Associated angina: without angina Hypertension I10 Hypertension type: essential hypertension Hyperlipidemia E78.5 Hyperlipidemia type: unspecified (1) CAD (coronary artery disease) Coronary Disease-Associated Artery/Lesion type: [place] artery [place] vs. transplanted heart: [place] heart Associated angina: without angina Qualified Code(s): I25.10 - Atherosclerotic heart disease of [place] coronary artery without angina pectoris (2) Hypertension Hypertension type: essential hypertension Qualified Code(s): I10 - Essential (primary) hypertension (3) Hyperlipidemia Hyperlipidemia type: unspecified Qualified Code(s): E78.5 - Hyperlipidemia, unspecified
[2021-04-11] MEDS ORDERED: AMIODARONE / D5W 360 MG/200 ML BAG IV ONE (12:40)
--- NOTE | 2021-04-11 13:13 | Electrocardiogram Report ---
Test Reason : Blood Pressure : / mmHG Vent. Rate : 168 BPM Atrial Rate : 156 BPM P-R Int : 000 ms QRS Dur : 078 ms QT Int : 232 ms P-R-T Axes : 000 027 204 degrees QTc Int : 387 ms Poor data quality, interpretation may be adversely affected Atrial fibrillation with rapid ventricular response Minimal voltage criteria for LVH, may be normal variant Marked ST abnormality, possible anterior subendocardial injury Abnormal ECG When compared with ECG of 31-MAR-2021 16:23, Significant changes have occurred Confirmed by Andrea Bales ([id number]) on 04/11/2021 1:12:57 PM Referred By: Abiel Clark Confirmed By:Andrea Bales
[2021-04-11] MEDS: AMIODARONE / D5W 360 MG/200 ML BAG IV SCH (18:51)
[2021-04-11] MEDS: ACETAMINOPHEN 325 MG TAB PO PRN (20:41)
[2021-04-11] MEDS: PANTOprazole 40 MG TAB PO SCH (21:01)
[2021-04-11] MEDS: ROSUVASTATIN CALCIUM 10 MG TAB PO SCH (21:02)
[2021-04-11] MEDS: PREGABALIN 75 MG CAP PO SCH (21:06)
[2021-04-12] MEDS: AMIODARONE / D5W 360 MG/200 ML BAG IV SCH ×2 (06:30→17:42)
[2021-04-12] MEDS: FERROUS GLUCONATE 324 MG TAB PO SCH ×2 (08:14→17:07)
[2021-04-12] MEDS: CHOLECALCIFEROL 1,000 UNITS 25 MCG TAB PO SCH (08:15)
[2021-04-12] MEDS: dexAMETHasone 4 MG TAB PO SCH (08:15)
[2021-04-12] MEDS: ASPIRIN 81 MG ECTAB PO SCH ×2 (08:15→20:16)
[2021-04-12] MEDS: CYANOCOBALAMIN (VITAMIN B-12) 2,500 MCG TAB.SUBL SL SCH (08:15)
[2021-04-12] MEDS: lamoTRIgine 100 MG TAB PO SCH (08:16)
[2021-04-12] MEDS: ROFLUMILAST 500 MCG TAB PO SCH (08:16)
[2021-04-12] MEDS: APIXABAN 5 MG TABLET PO SCH ×2 (08:16→20:17)
[2021-04-12] MEDS: METOPROLOL TARTRATE 25 MG TAB PO SCH ×3 (08:16→20:17)
--- NOTE | 2021-04-12 11:42 | Hospitalist Progress Note ---
Date of Service April 12, 2021 Assessment & Plan (1) Atrial fibrillation with rapid ventricular response: Patient with no previous history of atrial fibrillation, anticoagulated for DVT changed Bystolic to Lopressor 25mg TID suspect catecholamines playing a big role in tachycardia Cardizem drip at 5mg/hr is controlling HR, continue on drip for now Amiodarone bolus and drip to try to convert to sinus rhythm, can stop Cardizem if she converts rates are better today, 70-90 at rest, sensitive to moving around Patient is already anticoagulated with Eliquis 5 mg every 12 hours echo pending due to COVID positive test appreciate consult from Dr. Bales (2) Hypertension: We will hold Bystolic in favor of metoprolol BP low normal with Cardizem IV (3) GERD (gastroesophageal reflux disease): Previous GI bleed, seems to have resolved. Patient is not anemic on presentation Continue PPI as ordered, patient is on Dexilant which will be changed to Protonix while inpatient (4) Hyperlipidemia: Continue Crestor 10 mg nightly or pharmacy equivalent while inpatient (5) DVT (deep venous thrombosis): Eliquis as ordered (6) Elevated troponin I level: demand ischemia from afib with RVR no further work up, no chest pain/pressure (7) SARS-CoV-2 positive: had full vaccine back in January will stop dexamethasone, no evidence that she has viral pneumonia Admission and Anticipated Discharge Date Admission Date: April 10, 2021 Subjective patient feeling fine, no dyspnea, no chest pain, no palpitations, no light headedness heart rates are in the 70-90 range, still in atrial fibrillation d/w Dr. Bales, continue on Amiodarone with hopes she will convert she is on 2L NC but saturations are 98%, likely does not need oxygen she wears 2L NC only at night at home no labs today Review of Systems Review of Systems: All systems reviewed & are unremarkable except as noted in Subjective Physical Exam Constitutional: WD/WN, vitals as above no acute distress Neck: trachea midline, no thyromegaly Respiratory: normal respiratory effort, lungs clear to auscultation Cardiovascular: Rate/Rhythm: regular rate and + irregularly irregular Heart Sounds: normal S1 and normal S2; no murmur Vessels: normal peripheral pulses; no JVD Extremities: normal capillary refill; no edema Gastrointestinal (Abdomen): normal bowel sounds, soft, nontender, no hepatosplenomegaly Musculoskeletal: no cyanosis or clubbing, extremities motor strength 5/5 Skin: no rashes, warm and dry Neurologic: patellar DTR's 2+ bilat, sensation intact and PERRL, EOMI, accommodation nl, no face palsy, no dysarthria Psychiatric: Orientation: alert, oriented x 3 and cooperative Affect: + anxious affect Lymphatic: no cervical or axillary lymphadenopathy Results & Data Results & Data ([facility]) Vital Signs (Past 12 Hours) Vital Signs Temp Pulse Resp BP Pulse Ox 04/12/21 08:10 37.0 C 105 H 16 133/78 95 04/12/21 03:56 36.9 C 72 19 114/63 94 04/12/21 00:26 37.0 C 79 19 104/59 L 92 Medications Administered Current Inpatient Medications Acetaminophen (Acetaminophen 325 Mg Tab) 650 mg PO Q4H PRN PRN Reason: Pain or Fever Stop: 05/10/21 20:56 Last Admin: 04/11/21 20:41 Dose: 650 mg Documented by: Albuterol (Albuterol Hfa 8 Gm Inhaler (Combivent Respimat P&T Subs)) 2 puffs INH Q6H PRN PRN Reason: Shortness Of Breath Stop: 05/10/21 21:12 Apixaban (Apixaban 5 Mg Tablet) 5 mg PO BID [facility] Stop: 05/10/21 20:59 Last Admin: 04/12/21 08:16 Dose: 5 mg Documented by: Aspirin (Aspirin 81 Mg Ectab) 81 mg PO BID JANINE Stop: 05/10/21 20:59 Last Admin: 04/12/21 08:15 Dose: 81 mg Documented by: Cholestyramine Resin (Cholestyramine Light 4 Gm Pkt) 4 gm PO BID@1000,2200 PRN PRN Reason: .. Stop: 05/10/21 21:59 Cyanocobalamin (Cyanocobalamin (Vitamin B-12) 2,500 Mcg Tab.Subl) 5,000 mcg SL DAILY JANINE Stop: 05/11/21 08:59 Last Admin: 04/12/21 08:15 Dose: 5,000 mcg Documented by: Dexamethasone (Dexamethasone 4 Mg Tab) 6 mg PO DAILY [facility] Stop: 05/10/21 20:56 Last Admin: 04/12/21 08:15 Dose: 6 mg Documented by: Ferrous Gluconate (Ferrous Gluconate 324 Mg Tab) 324 mg PO BIDM [facility] Stop: 05/11/21 07:59 Last Admin: 04/12/21 08:14 Dose: 324 mg Documented by: Diltiazem HCl 125 mg/ Dextrose 125 mls @ 5 mls/hr IV .Q24H [facility]; Protocol Stop: 05/11/21 07:14 Last Titration: 04/11/21 21:50 Dose: 5 mg/hr, 5 mls/hr Documented by: Amiodarone HCl/Dextrose (Nexterone / D5w) 360 mg in 200 mls @ 16.667 mls/hr IV .Q12H [facility] Stop: 05/11/21 18:39 Last Admin: 04/12/21 06:30 Dose: 0.5 mg/min, 16.7 mls/hr Documented by: Ipratropium [place] (Ipratropium Hfa Inhaler (Combivent Respimat P&T Subs)) 2 puffs INH Q6H PRN PRN Reason: Shortness Of Breath Stop: 05/10/21 21:12 Lamotrigine (Lamotrigine 100 Mg Tab) 150 mg PO QAM [facility] Stop: 05/11/21 08:59 Last Admin: 04/12/21 08:16 Dose: 150 mg Documented by: Metoprolol Tartrate (Metoprolol Tartrate 25 Mg Tab) 25 mg PO TID [facility] Stop: 05/11/21 13:59 Last Admin: 04/12/21 08:16 Dose: 25 mg Documented by: Nitroglycerin (Nitroglycerin Sl 0.4 Mg/Tab Tab) 0.4 mg SL UD PRN PRN Reason: Angina Stop: 05/10/21 20:56 Ondansetron HCl (Ondansetron Inj 2 Mg/Ml 2 Ml Vial) 4 mg IV Q6H PRN PRN Reason: Nausea Stop: 05/10/21 20:56 Oxycodone HCl (Oxycodone Hcl Ir 5 Mg Tab (Immediate Release)) 5 - 10 mg PO Q6 PRN PRN Reason: pain Stop: 04/24/21 21:09 Pantoprazole Sodium (Pantoprazole 40 Mg Tab) 40 mg PO HS [facility] Stop: 05/10/21 20:59 Last Admin: 04/11/21 21:01 Dose: 40 mg Documented by: Pregabalin (Pregabalin 75 Mg Cap) 75 mg PO [facility] Stop: 05/10/21 20:59 Last Admin: 04/11/21 21:06 Dose: 75 mg Documented by: Quetiapine Fumarate (Quetiapine Fumarate 150 Mg Tabcr) 150 mg PO HS JANINE Stop: 05/10/21 20:59 Last Admin: 04/11/21 21:01 Dose: 150 mg Documented by: Roflumilast (Roflumilast 500 Mcg Tab) 500 mcg PO QA JANINE Stop: 05/11/21 08:59 Last Admin: 04/12/21 08:16 Dose: 500 mcg Documented by: Rosuvastatin Calcium (Rosuvastatin Calcium 10 Mg Tab) 10 mg PO [facility] Stop: 05/10/21 20:59 Last Admin: 04/11/21 21:02 Dose: 10 mg Documented by: Vitamin D (Cholecalciferol 1,000 Units 25 Mcg Tab) 1,000 units PO DAILY JANINE Stop: 05/11/21 08:59 Last Admin: 04/12/21 08:15 Dose: 1,000 units Documented by: PG Care Time/CCT Total # of Minutes Spent Total Time Spent with Patient: Total time spent is greater than 50% in coordination of care (as documented) at patient's floor/unit and/or counseling patient: Coding Level of Care Code 51201 Subseq Hosp Care Lvl 3 Diagnoses Atrial fibrillation with rapid ventricular response I48.91 Hypertension I10 Hypertension type: essential hypertension GERD (gastroesophageal reflux disease) K21.9 Hyperlipidemia E78.5 Hyperlipidemia type: unspecified DVT (deep venous thrombosis) I82.409 Elevated troponin I level R77.8 SARS-CoV-2 positive U07.1 (1) Hypertension Hypertension type: essential hypertension Qualified Code(s): I10 - Essential (primary) hypertension (2) Hyperlipidemia Hyperlipidemia type: unspecified Qualified Code(s): E78.5 - Hyperlipidemia, unspecified
--- NOTE | 2021-04-12 12:47 | Cardiology Progress Note ---
Date of Service April 12, 2021 Assessment & Plan (1) Atrial fibrillation with rapid ventricular response: -rate improved on intravenous amiodarone. -would continue intravenous amiodarone times another 24 hours hoping to attain sinus rhythm. -continue metoprolol tartrate and Eliquis. -would check a TSH level. (2) Elevated troponin I level: -likely a supply demand mismatch from her rapid ventricular response to atrial fibrillation. 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 (3) CAD (coronary artery disease): -coronary anatomy described in consultation note. (4) Hypertension: -adequate control on current regimen. (5) Hyperlipidemia: -continue rosuvastatin. Admission and Anticipated Discharge Date Admission Date: April 10, 2021 Subjective The patient is resting comfortably in the bedside chair according to her report. She has no complaints of palpitations, dyspnea, or chest discomfort. We have discussed the use of intravenous followed by oral amiodarone. Physical Exam Physical Exam: Exam per Dr. Gould as patient in [facility]. Results & Data ([facility]) Vital Signs (Past 12 Hours) Vital Signs Temp Pulse Resp BP Pulse Ox 04/12/21 11:45 36.7 C 78 20 129/84 99 04/12/21 08:10 37.0 C 105 H 16 133/78 95 04/12/21 03:56 36.9 C 72 19 114/63 94 PG Care Time/CCT Total # of Minutes Spent Total Time Spent with Patient: Total time spent is greater than 50% in coordination of care (as documented) at patient's floor/unit and/or counseling patient: Coding Level of Care Code 98237 Subseq Hosp Care Lvl 3 Diagnoses Atrial fibrillation with rapid ventricular response I48.91 Elevated troponin I level R77.8 CAD (coronary artery disease) I25.10 Coronary Disease-Associated Artery/Lesion type: [place] artery [place] vs. transplanted heart: [place] heart Associated angina: without angina Hypertension I10 Hypertension type: essential hypertension Hyperlipidemia E78.5 Hyperlipidemia type: unspecified (1) CAD (coronary artery disease) Coronary Disease-Associated Artery/Lesion type: [place] artery [place] vs. transplanted heart: [place] heart Associated angina: without angina Qualified Code(s): I25.10 - Atherosclerotic heart disease of [place] coronary artery without angina pectoris (2) Hypertension Hypertension type: essential hypertension Qualified Code(s): I10 - Essential (primary) hypertension (3) Hyperlipidemia Hyperlipidemia type: unspecified Qualified Code(s): E78.5 - Hyperlipidemia, unspecified
[2021-04-12] MEDS: PREGABALIN 75 MG CAP PO SCH (20:17)
[2021-04-12] MEDS: PANTOprazole 40 MG TAB PO SCH (20:18)
[2021-04-12] MEDS: ROSUVASTATIN CALCIUM 10 MG TAB PO SCH (20:19)
[2021-04-12] MEDS: dilTIAZem HCL 125 MG in DEXTROSE 5% 100 ML IV SCH (20:55)
[2021-04-13] MEDS: AMIODARONE / D5W 360 MG/200 ML BAG IV SCH ×2 (08:20→17:08)
[2021-04-13] MEDS: FERROUS GLUCONATE 324 MG TAB PO SCH ×2 (08:21→16:46)
[2021-04-13] MEDS: CHOLECALCIFEROL 1,000 UNITS 25 MCG TAB PO SCH (08:21)
[2021-04-13] MEDS: lamoTRIgine 100 MG TAB PO SCH (08:21)
[2021-04-13] MEDS: CYANOCOBALAMIN (VITAMIN B-12) 2,500 MCG TAB.SUBL SL SCH (08:21)
[2021-04-13] MEDS: METOPROLOL TARTRATE 25 MG TAB PO SCH ×2 (08:22→13:42)
[2021-04-13] MEDS: ROFLUMILAST 500 MCG TAB PO SCH (08:22)
[2021-04-13] MEDS: APIXABAN 5 MG TABLET PO SCH ×2 (08:23→21:19)
[2021-04-13] MEDS: ASPIRIN 81 MG ECTAB PO SCH ×2 (08:23→21:19)
--- NOTE | 2021-04-13 12:43 | Cardiology Progress Note ---
Date of Service April 13, 2021 Assessment & Plan (1) Atrial fibrillation with rapid ventricular response: -rate improved on IV amiodarone, but she remains in atrial fibrillation. -would continue intravenous amiodarone another 24 hours. -continue metoprolol tartrate and Eliquis. -would check a TSH level. (2) Elevated troponin I level: -likely a supply demand mismatch from her rapid ventricular response to atrial fibrillation. (3) CAD (coronary artery disease): -coronary anatomy described in consultation note. (4) Hypertension: -adequate control on current regimen. (5) Hyperlipidemia: -continue rosuvastatin. Admission and Anticipated Discharge Date Admission Date: April 10, 2021 Subjective The patient is without complaints of chest pain, dyspnea, or palpitations. Physical Exam Physical Exam: Exam per Dr. Gould as patient in [facility]. Results & Data ([facility]) Vital Signs (Past 12 Hours) Vital Signs Temp Pulse Resp BP Pulse Ox 04/13/21 12:13 36.9 C 78 20 113/67 96 04/13/21 08:18 75 18 121/92 99 04/13/21 04:10 36.4 C L 81 20 126/68 99 PG Care Time/CCT Total # of Minutes Spent Total Time Spent with Patient: Total time spent is greater than 50% in coordination of care (as documented) at patient's floor/unit and/or counseling patient: Coding Level of Care Code 15384 Subseq Hosp Care Lvl 3 Diagnoses Atrial fibrillation with rapid ventricular response I48.91 Elevated troponin I level R77.8 CAD (coronary artery disease) I25.10 Coronary Disease-Associated Artery/Lesion type: [place] artery [place] vs. transplanted heart: [place] heart Associated angina: without angina Hypertension I10 Hypertension type: essential hypertension Hyperlipidemia E78.5 Hyperlipidemia type: unspecified (1) CAD (coronary artery disease) Coronary Disease-Associated Artery/Lesion type: [place] artery [place] vs. transplanted heart: [place] heart Associated angina: without angina Qualified Code(s): I25.10 - Atherosclerotic heart disease of [place] coronary artery without angina pectoris (2) Hypertension Hypertension type: essential hypertension Qualified Code(s): I10 - Essential (primary) hypertension (3) Hyperlipidemia Hyperlipidemia type: unspecified Qualified Code(s): E78.5 - Hyperlipidemia, unspecified
--- NOTE | 2021-04-13 14:13 | Hospitalist Progress Note ---
Date of Service April 13, 2021 Assessment & Plan (1) Atrial fibrillation with rapid ventricular response: Patient with no previous history of atrial fibrillation, anticoagulated for DVT changed Bystolic to Lopressor 50mg BID suspect catecholamines playing a big role in tachycardia Cardizem drip at 5mg/hr is controlling HR, continue on drip for now Amiodarone bolus and drip to try to convert to sinus rhythm, can stop Cardizem if she converts rates are better today, 70-80 at rest, sensitive to moving around Patient is already anticoagulated with Eliquis 5 mg every 12 hours echo pending due to COVID positive test appreciate consult from Dr. Bales (2) Hypertension: We will hold Bystolic in favor of metoprolol BP low normal with Cardizem IV (3) GERD (gastroesophageal reflux disease): Previous GI bleed, seems to have resolved. Patient is not anemic on presentation Continue PPI as ordered, patient is on Dexilant which will be changed to Protonix while inpatient (4) Hyperlipidemia: Continue Crestor 10 mg nightly or pharmacy equivalent while inpatient (5) DVT (deep venous thrombosis): Eliquis as ordered (6) Elevated troponin I level: demand ischemia from afib with RVR no further work up, no chest pain/pressure (7) SARS-CoV-2 positive: had full vaccine back in January will stop dexamethasone, no evidence that she has viral pneumonia Admission and Anticipated Discharge Date Admission Date: April 10, 2021 Subjective says she feels much, much better compared to past few days still in afib, in 70-90 on motor eating well, getting OOB to chair and walking around moving her bowels, making urine no chest pain, no pressure, no palpitations D/w Dr. Bales, wants her to stay another 24 hours on the Amiodarone Review of Systems Review of Systems: All systems reviewed & are unremarkable except as noted in Subjective Physical Exam Constitutional: WD/WN, vitals as above no acute distress Neck: trachea midline, no thyromegaly Respiratory: normal respiratory effort, lungs clear to auscultation Cardiovascular: Rate/Rhythm: regular rate and + irregularly irregular Heart Sounds: normal S1 and normal S2; no murmur Vessels: normal peripheral pulses; no JVD Extremities: normal capillary refill; no edema Gastrointestinal (Abdomen): normal bowel sounds, soft, nontender, no hep atosplenomegaly Musculoskeletal: no cyanosis or clubbing, extremities motor strength 5/5 Skin: no rashes, warm and dry Neurologic: patellar DTR's 2+ bilat, sensation intact and PERRL, EOMI, accommodation nl, no face palsy, no dysarthria Psychiatric: Orientation: alert, oriented x 3 and cooperative Affect: + anxious affect Lymphatic: no cervical or axillary lymphadenopathy Results & Data Results & Data ([facility]) Vital Signs (Past 12 Hours) Vital Signs Temp Pulse Resp BP Pulse Ox 04/13/21 12:13 36.9 C 78 20 113/67 96 04/13/21 08:18 75 18 121/92 99 04/13/21 04:10 36.4 C L 81 20 126/68 99 Medications Administered Current Inpatient Medications Acetaminophen (Acetaminophen 325 Mg Tab) 650 mg PO Q4H PRN PRN Reason: Pain or Fever Stop: 05/10/21 20:56 Last Admin: 04/11/21 20:41 Dose: 650 mg Documented by: Albuterol (Albuterol Hfa 8 Gm Inhaler (Combivent Respimat P&T Subs)) 2 puffs INH Q6H PRN PRN Reason: Shortness Of Breath Stop: 05/10/21 21:12 Apixaban (Apixaban 5 Mg Tablet) 5 mg PO BID [facility] Stop: 05/10/21 20:59 Last Admin: 04/13/21 08:23 Dose: 5 mg Documented by: Aspirin (Aspirin 81 Mg Ectab) 81 mg PO BID [facility] Stop: 05/10/21 20:59 Last Admin: 04/13/21 08:23 Dose: 81 mg Documented by: Cholestyramine Resin (Cholestyramine Light 4 Gm Pkt) 4 gm PO BID@1000,2200 PRN PRN Reason: .. Stop: 05/10/21 21:59 Cyanocobalamin (Cyanocobalamin (Vitamin B-12) 2,500 Mcg Tab.Subl) 5,000 mcg SL DAILY [facility] Stop: 05/11/21 08:59 Last Admin: 04/13/21 08:21 Dose: 5,000 mcg Documented by: Ferrous Gluconate (Ferrous Gluconate 324 Mg Tab) 324 mg PO BIDM [facility] Stop: 05/11/21 07:59 Last Admin: 04/13/21 08:21 Dose: 324 mg Documented by: Diltiazem HCl 125 mg/ Dextrose 125 mls @ 5 mls/hr IV .Q24H [facility]; Protocol Stop: 05/11/21 07:14 Last Admin: 04/12/21 20:55 Dose: 5 mg/hr, 5 mls/hr Documented by: Amiodarone HCl/Dextrose (Nexterone / D5w) 360 mg in 200 mls @ 16.667 mls/hr IV .Q12H [facility] Stop: 05/11/21 18:39 Last Admin: 04/13/21 08:20 Dose: Not Given Documented by: Ipratropium [place] (Ipratropium Hfa Inhaler (Combivent Respimat P&T Subs)) 2 puffs INH Q6H PRN PRN Reason: Shortness Of Breath Stop: 05/10/21 21:12 Lamotrigine ([facility]ine 100 Mg Tab) [facility] Stop: 05/11/21 08:59 Last Admin: 04/13/21 08:21 Dose: 150 mg Documented by: Metoprolol Tartrate (Metoprolol Tartrate 50 Mg Tab) 50 mg PO BID [facility] Stop: 05/13/21 20:59 Nitroglycerin (Nitroglycerin Sl 0.4 Mg/Tab Tab) 0.4 mg SL UD PRN PRN Reason: Angina Stop: 05/10/21 20:56 Ondansetron HCl (Ondansetron Inj 2 Mg/Ml 2 Ml Vial) 4 mg IV Q6H PRN PRN Reason: Nausea Stop: 05/10/21 20:56 Oxycodone HCl (Oxycodone Hcl Ir 5 Mg Tab (Immediate Release)) 5 - 10 mg PO Q6 PRN PRN Reason: pain Stop: 04/24/21 21:09 Pantoprazole Sodium (Pantoprazole 40 Mg Tab) 40 mg PO [facility] Stop: 05/10/21 20:59 Last Admin: 04/12/21 20:18 Dose: 40 mg Documented by: Pregabalin (Pregabalin 75 Mg Cap) 75 mg PO [facility] Stop: 05/10/21 20:59 Last Admin: 04/12/21 20:17 Dose: 75 mg Documented by: Quetiapine Fumarate (Quetiapine Fumarate 150 Mg Tabcr) 150 mg PO [facility] Stop: 05/10/21 20:59 Last Admin: 04/12/21 20:17 Dose: 150 mg Documented by: Roflumilast (Roflumilast 500 Mcg Tab) 500 mcg PO QAM [facility] Stop: 05/11/21 08:59 Last Admin: 04/13/21 08:22 Dose: 500 mcg Documented by: Rosuvastatin Calcium (Rosuvastatin Calcium 10 Mg Tab) 10 mg PO HS [facility] Stop: 05/10/21 20:59 Last Admin: 04/12/21 20:19 Dose: 10 mg Documented by: Vitamin D (Cholecalciferol 1,000 Units 25 Mcg Tab) 1,000 units PO DAILY [facility] Stop: 05/11/21 08:59 Last Admin: 04/13/21 08:21 Dose: 1,000 units Documented by: PG Care Time/CCT Total # of Minutes Spent Total Time Spent with Patient: Total time spent is greater than 50% in coordination of care (as documented) at patient's floor/unit and/or counseling patient: Coding Level of Care Code 21537 Subseq Hosp Care Lvl 2 Diagnoses Atrial fibrillation with rapid ventricular response I48.91 Hypertension I10 Hypertension type: essential hypertension GERD (gastroesophageal reflux disease) K21.9 Hyperlipidemia E78.5 Hyperlipidemia type: unspecified DVT (deep venous thrombosis) I82.409 Elevated troponin I level R77.8 SARS-CoV-2 positive U07.1 (1) Hyperlipidemia Hyperlipidemia type: unspecified Qualified Code(s): E78.5 - Hyperlipidemia, unspecified (2) Hypertension Hypertension type: essential hypertension Qualified Code(s): I10 - Essential (primary) hypertension
--- NOTE | 2021-04-13 16:35 | XCELERA ---
[id number]_[id number]
[2021-04-13] MEDS: PREGABALIN 75 MG CAP PO SCH (21:08)
[2021-04-13] MEDS: PANTOprazole 40 MG TAB PO SCH (21:18)
[2021-04-13] MEDS: ROSUVASTATIN CALCIUM 10 MG TAB PO SCH (21:18)
[2021-04-13] MEDS: METOPROLOL TARTRATE 50 MG TAB PO SCH (21:19)
[2021-04-13] MEDS: dilTIAZem HCL 125 MG in DEXTROSE 5% 100 ML IV SCH (22:10)
[2021-04-14] MEDS: AMIODARONE / D5W 360 MG/200 ML BAG IV SCH ×2 (04:01→13:33)
[2021-04-14] MEDS: APIXABAN 5 MG TABLET PO SCH ×2 (08:06→20:28)
[2021-04-14] MEDS: ASPIRIN 81 MG ECTAB PO SCH ×2 (08:06→20:28)
[2021-04-14] MEDS: METOPROLOL TARTRATE 50 MG TAB PO SCH ×2 (08:06→20:28)
[2021-04-14] MEDS: CHOLECALCIFEROL 1,000 UNITS 25 MCG TAB PO SCH (08:07)
[2021-04-14] MEDS: lamoTRIgine 100 MG TAB PO SCH (08:07)
[2021-04-14] MEDS: FERROUS GLUCONATE 324 MG TAB PO SCH ×2 (08:07→16:53)
[2021-04-14] MEDS: ROFLUMILAST 500 MCG TAB PO SCH (08:07)
[2021-04-14] MEDS: CYANOCOBALAMIN (VITAMIN B-12) 2,500 MCG TAB.SUBL SL SCH (08:07)
--- NOTE | 2021-04-14 11:05 | Cardiology Progress Note ---
Date of Service April 14, 2021 Assessment & Plan (1) Atrial fibrillation with rapid ventricular response: -rate controlled on IV amiodarone, but she remains in atrial fibrillation. -would convert amiodarone 200 mg b.i.d. -continue metoprolol tartrate and Eliquis. -stable for hospital discharge. (2) Elevated troponin I level: -supply demand mismatch from her rapid ventricular response to atrial fibrillation at time presentation. (3) CAD (coronary artery disease): -coronary anatomy described in consultation note. (4) Hypertension: -adequate control. (5) Hyperlipidemia: -continue Crestor. Admission and Anticipated Discharge Date Admission Date: April 10, 2021 [address] Mrs. Collier voices no complaints of palpitations, chest pain, or dyspnea. She is anxious for hospital discharge. Physical Exam Physical Exam: Exam per Dr. Gould as patient in [facility]. Results & Data ([facility]) Vital Signs (Past 12 Hours) Vital Signs Temp Pulse Pulse Resp BP Pulse Ox 04/14/21 08:01 36.6 C 80 19 137/67 97 04/14/21 07:13 69 04/14/21 03:53 36.7 C 73 20 109/64 97 04/13/21 23:10 37.7 C H 77 20 107/55 L 91 PG Care Time/CCT Total # of Minutes Spent Total Time Spent with Patient: Total time spent is greater than 50% in coordination of care (as documented) at patient's floor/unit and/or counseling patient: Coding Level of Care Code 84340 Subseq Hosp Care Lvl 3 Diagnoses Atrial fibrillation with rapid ventricular response I48.91 Elevated troponin I level R77.8 CAD (coronary artery disease) I25.10 Coronary Disease-Associated Artery/Lesion type: [place] artery [place] vs. transplanted heart: [place] heart Associated angina: without angina Hypertension I10 Hypertension type: essential hypertension Hyperlipidemia E78.5 Hyperlipidemia type: unspecified (1) CAD (coronary artery disease) Coronary Disease-Associated Artery/Lesion type: [place] artery [place] vs. transplanted heart: [place] heart Associated angina: without angina Qualified Code(s): I25.10 - Atherosclerotic heart disease of [place] coronary artery without angina pectoris (2) Hypertension Hypertension type: essential hypertension Qualified Code(s): I10 - Essential (primary) hypertension (3) Hyperlipidemia Hyperlipidemia type: unspecified Qualified Code(s): E78.5 - Hyperlipidemia, unspecified
[2021-04-14] MEDS: AMIODARONE 200 MG TAB PO SCH (16:53)
[2021-04-14] MEDS: cefTRIAXone SODIUM 1,000 MG in DEXTROSE 5% 50 ML IV SCH (16:53)
[2021-04-14] MEDS: PREGABALIN 75 MG CAP PO SCH (20:22)
[2021-04-14] MEDS: dilTIAZem HCL 125 MG in DEXTROSE 5% 100 ML IV SCH (20:23)
[2021-04-14] MEDS: ROSUVASTATIN CALCIUM 10 MG TAB PO SCH (20:27)
[2021-04-14] MEDS: PANTOprazole 40 MG TAB PO SCH (20:29)
[2021-04-14 20:40] LABS: Hematocrit (blood only) 30.6 % (37-47); Hemoglobin 9.6 g/dL (12.0-16.0); Mean Corpuscular Hemoglobin 29.9 pg (25-34); Mean Corpuscular Hgb Conc 31.4 g/dL (32-36); Mean Corpuscular Volume 95.3 fL (80-100); Mean Platelet Volume 10.1 fL (7.4-10.4); Platelet Count 223 K/uL (130-400); RDW Coefficient of Variation 17.3 % (11.5-14.5); RDW Standard Deviation 60.8 fL (36.4-46.3); Red Blood Count 3.21 M/uL (4.2-5.4); White Blood Count 6.55 K/uL (4.8-10.8)
[2021-04-14 20:57] LABS: BUN Creatinine Ratio 11.9 (10-20); Calcium 8.4 mg/dl (8.5-10.1); Creatinine Clr Calc Pharmacy 28.9 ml/min; Est GFR (African American) 38.6 ml/min; Est GFR (Non-African American) 33.3 ml/min; Magnesium 1.6 mg/dl (1.8-2.4); Potassium 3.3 mmol/L (3.5-5.1)
[2021-04-14 21:02] LABS: Troponin I 0.025 ng/ml (0-0.045)
[2021-04-14] MEDS ORDERED: POTASSIUM CHLORIDE CRTAB 20 MEQ TABCR PO STA (21:26)
[2021-04-14] MEDS ORDERED: MAGNESIUM SULFATE / D5W 1 GM/100 ML BAG IV STA (21:38)
--- NOTE | 2021-04-14 21:42 | Hospitalist Progress Note ---
Date of Service April 14, 2021 Assessment & Plan (1) Atrial fibrillation with rapid ventricular response: Patient with no previous history of atrial fibrillation, anticoagulated for DVT changed Bystolic to Lopressor 50mg BID suspect catecholamines playing a big role in tachycardia Cardizem drip at 5mg/hr is controlling HR, continue on drip for now, plan to change to Cardizem 120mg daily in the AM Amiodarone bolus and drip to try to convert to sinus rhythm no conversion yet, change to Amiodarone 200mg PO BID per cardiology direction rates are better today, 70-80 at rest, sensitive to moving around Patient is already anticoagulated with Eliquis 5 mg every 12 hours Echo with EF of 55%, moderate mitral regurgitation had syncope on 04/14, likely related to low volume state and orthostatic changes no pause or tachycardia with syncopal episode (2) JULIANN (acute kidney injury): likely from poor oral intake for a few days Cr up to 1.4 today will start on NSS 80cc/hr repeat BMP tomorrow (3) Syncope and collapse: happened when she was standing up, likely due to low volume, afib, orthostatic changes? will give IV fluids replace electrolytes PT/OT evaluations, keep on monitor, check orthostatic changes tomorrow (4) Hypomagnesemia: 1.6 this evening IV replacement ordered (5) Hypokalemia: slightly low at 3.3 give 30mEq in IV fluids repeat tomorrow (6) UTI (urinary tract infection): 30K Klebsiella on initial culture did not treat initially due to no symptoms now with incontinence, weakness and had syncope will start on Rocephin 1gm IV daily (7) Hypertension: We will hold Bystolic in favor of metoprolol BP low normal with Cardizem IV (8) GERD (gastroesophageal reflux disease): Previous GI bleed, seems to have resolved. Patient is not anemic on presentation Continue PPI as ordered, patient is on Dexilant which will be changed to Protonix while inpatient (9) Hyperlipidemia: Continue Crestor 10 mg nightly or pharmacy equivalent while inpatient (10) DVT (deep venous thrombosis): Eliquis as ordered (11) Elevated troponin I level: demand ischemia from afib with RVR no further work up, no chest pain/pressure echo with preserved EF and no wall motion changes (12) SARS-CoV-2 positive: had full vaccine back in January will stop dexamethasone, no evidence that she has viral pneumonia Admission and Anticipated Discharge Date Admission Date: April 10, 2021 Subjective patient remains in afib, rates remain well controlled, d/w Dr. Bales, from cardiac perspective can go home on Amiodarone 200 BID and rate control however, patient feels weaker today RN said she got her up to sit and she kept leaning to the left, she also had some urinary incontinence in light of her weakness and incontinence will treat the Klebsiella on urine culture she says she feels weak, not sure what is going on she is not eating very well, no chest pain/pressure, no dyspnea at rest or on exertion, no diarrhea later in the evening she had a brief syncopal episode with the nurse when she stood up vital signs were all stable immediately after the episode and there were no pauses on monitor checked labs, WBC 6.5, Hb 9.6, plts 223 K low at 3.3, Mag low at 1.6, Cr up slightly at 1.49 likely from poor PO intake troponin 0.02 will add NSS + 30mEq of K at 80cc/hr and replace mag will get PT/OT evaluations discussed with her that she will be here through the weekend Review of Systems Review of Systems: All systems reviewed & are unremarkable except as noted in Subjective Physical Exam Constitutional: WD/WN, vitals as above no acute distress Neck: trachea midline, no thyromegaly Respiratory: normal respiratory effort, lungs clear to auscultation Cardiovascular: Rate/Rhythm: regular rate and + irregularly irregular Heart Sounds: normal S1 and normal S2; no murmur Vessels: normal peripheral pulses; no JVD Extremities: normal capillary refill; no edema Gastrointestinal (Abdomen): normal bowel sounds, soft, nontender, no hepatosplenomegaly Musculoskeletal: no cyanosis or clubbing, extremities motor strength 5/5 Skin: no rashes, warm and dry Neurologic: patellar DTR's 2+ bilat, sensation intact and PERRL, EOMI, accommodation nl, no face palsy, no dysarthria Psychiatric: Orientation: alert, oriented x 3 and cooperative Affect: + anxious affect Lymphatic: no cervical or axillary lymphadenopathy Results & Data Results & Data ([facility]) Vital Signs (Past 12 Hours) Vital Signs Temp Pulse Pulse Resp BP Pulse Ox 04/14/21 16:36 37.0 C 85 21 129/91 96 04/14/21 15:21 89 04/14/21 11:03 36.8 C 69 18 110/62 92 Laboratory Results Laboratory Results - last 24 hr 04/14/21 04/14/21 20:17 20:17 WBC 6.55 RBC 3.21 L Hgb 9.6 L Hct 30.6 L MCV 95.3 MCH 29.9 MCHC 31.4 L RDW Std Deviation 60.8 H RDW Coeff of Gino 17.3 H Plt Count 223 MPV 10.1 Sodium 136 Potassium 3.3 L Chloride 103 Carbon Dioxide 30 Anion Gap 3.0 BUN 18 Creatinine 1.49 H Est Cr Clr Drug Dosing 28.9 Est GFR ( Amer) 38.6 Est GFR (Non-Af Amer) 33.3 BUN/Creatinine Ratio 11.9 Glucose 105 H Calcium 8.4 L Magnesium 1.6 L Troponin I 0.025 Medications Administered Current Inpatient Medications Acetaminophen (Acetaminophen 325 Mg Tab) 650 mg PO Q4H PRN PRN Reason: Pain or Fever Stop: 05/10/21 20:56 Last Admin: 04/11/21 20:41 Dose: 650 mg Documented by: Albuterol (Albuterol Hfa 8 Gm Inhaler (Combivent Respimat P&T Subs)) 2 puffs INH Q6H PRN PRN Reason: Shortness Of Breath Stop: 05/10/21 21:12 Amiodarone HCl (Amiodarone 200 Mg Tab) 200 mg PO BIDM [facility] Stop: 05/14/21 16:59 Last Admin: 04/14/21 16:53 Dose: 200 mg Documented by: Apixaban (Apixaban 5 Mg Tablet) 5 mg PO BID [facility] Stop: 05/10/21 20:59 Last Admin: 04/14/21 20:28 Dose: 5 mg Documented by: Aspirin (Aspirin 81 Mg Ectab) 81 mg PO BID [facility] Stop: 05/10/21 20:59 Last Admin: 04/14/21 20:28 Dose: 81 mg Documented by: Cholestyramine Resin (Cholestyramine Light 4 Gm Pkt) 4 gm PO BID@1000,2200 PRN PRN Reason: .. Stop: 05/10/21 21:59 Cyanocobalamin (Cyanocobalamin (Vitamin B-12) 2,500 Mcg Tab.Subl) 5,000 mcg SL DAILY [facility] Stop: 05/11/21 08:59 Last Admin: 04/14/21 08:07 Dose: 5,000 mcg Documented by: Ferrous Gluconate (Ferrous Gluconate 324 Mg Tab) 324 mg PO BIDM [facility] Stop: 05/11/21 07:59 Last Admin: 04/14/21 16:53 Dose: 324 mg Documented by: Diltiazem HCl 125 mg/ Dextrose 125 mls @ 5 mls/hr IV .Q24H [facility]; Protocol Stop: 05/11/21 07:14 Last Admin: 04/14/21 20:23 Dose: 5 mg/hr, 5 mls/hr Documented by: Ceftriaxone Sodium 1,000 mg/ (Dextrose) 60 mls @ 100 mls/hr IV Q24H [facility]; Protocol Stop: 04/19/21 15:59 Last Infusion: 04/14/21 17:24 Dose: Infused Documented by: Magnesium Sulfate/Dextrose (Magnesium Sulfate / D5w) 1 gm in 100 mls @ 50 mls/hr IV Q2H [facility] Stop: 04/14/21 23:25 Potassium Chloride 30 meq/ (Sodium Chloride) 1,015 mls @ 80 mls/hr IV .[id number] [facility] Stop: 05/14/21 21:44 Magnesium Sulfate/Dextrose (Magnesium Sulfate / D5w) 1 gm in 100 mls @ 50 mls/hr IV Q2H [facility] Stop: 04/14/21 23:37 Ipratropium [place] (Ipratropium Hfa Inhaler (Combivent Respimat P&T Subs)) 2 puffs INH Q6H PRN PRN Reason: Shortness Of Breath Stop: 05/10/21 21:12 Lamotrigine (Lamotrigine 100 Mg Tab) 150 mg PO QAM [facility] Stop: 05/11/21 08:59 Last Admin: 04/14/21 08:07 Dose: 150 mg Documented by: Metoprolol Tartrate (Metoprolol Tartrate 50 Mg Tab) 50 mg PO BID [facility] Stop: 05/13/21 20:59 Last Admin: 04/14/21 20:28 Dose: 50 mg Documented by: Nitroglycerin (Nitroglycerin Sl 0.4 Mg/Tab Tab) 0.4 mg SL UD PRN PRN Reason: Angina Stop: 05/10/21 20:56 Ondansetron HCl (Ondansetron Inj 2 Mg/Ml 2 Ml Vial) 4 mg IV Q6H PRN PRN Reason: Nausea Stop: 05/10/21 20:56 Oxycodone HCl (Oxycodone Hcl Ir 5 Mg Tab (Immediate Release)) 5 - 10 mg PO Q6 PRN PRN Reason: pain Stop: 04/24/21 21:09 Pantoprazole Sodium (Pantoprazole 40 Mg Tab) 40 mg PO [facility] Stop: 05/10/21 20:59 Last Admin: 04/14/21 20:29 Dose: 40 mg Documented by: Pregabalin (Pregabalin 75 Mg Cap) 75 mg PO HS [facility] Stop: 05/10/21 20:59 Last Admin: 04/14/21 20:22 Dose: 75 mg Documented by: Quetiapine Fumarate (Quetiapine Fumarate 150 Mg Tabcr) 150 mg PO HS [facility] Stop: 05/10/21 20:59 Last Admin: 04/14/21 20:28 Dose: 150 mg Documented by: Roflumilast (Roflumilast 500 Mcg Tab) 500 mcg PO QAM [facility] Stop: 05/11/21 08:59 Last Admin: 04/14/21 08:07 Dose: 500 mcg Documented by: Rosuvastatin Calcium (Rosuvastatin Calcium 10 Mg Tab) 10 mg PO [facility] Stop: 05/10/21 20:59 Last Admin: 04/14/21 20:27 Dose: 10 mg Documented by: Vitamin D (Cholecalciferol 1,000 Units 25 Mcg Tab) 1,000 units PO DAILY [facility] Stop: 05/11/21 08:59 Last Admin: 04/14/21 08:07 Dose: 1,000 units Documented by: PG Care Time/CCT Total # of Minutes Spent Total Time Spent with Patient: Total time spent is greater than 50% in coordination of care (as documented) at patient's floor/unit and/or counseling patient: Coding Level of Care Code 87038 Subseq Hosp Care Lvl 3 Diagnoses Atrial fibrillation with rapid ventricular response I48.91 JULIANN (acute kidney injury) N17.9 Syncope and collapse R55 Hypomagnesemia E83.42 Hypokalemia E87.6 UTI (urinary tract infection) N39.0 Hypertension I10 Hypertension type: essential hypertension GERD (gastroesophageal reflux disease) K21.9 Hyperlipidemia E78.5 Hyperlipidemia type: unspecified DVT (deep venous thrombosis) I82.409 Elevated troponin I level R77.8 SARS-CoV-2 positive U07.1 (1) Hypertension Hypertension type: essential hypertension Qualified Code(s): I10 - Essential (primary) hypertension (2) Hyperlipidemia Hyperlipidemia type: unspecified Qualified Code(s): E78.5 - Hyperlipidemia, unspecified
[2021-04-14] MEDS ORDERED: POTASSIUM CHLORIDE 30 MEQ in SODIUM CHLORIDE 0.9% 1000ML 1,000 ML IV SCH (21:45)
[2021-04-14] MEDS: MAGNESIUM SULFATE / D5W 1 GM/100 ML BAG IV SCH ×2 (21:58→23:43)
[2021-04-15 07:28] LABS: Albumin Level 2.2 gm/dl (3.4-5.0); BUN Creatinine Ratio 12.3 (10-20); Creatinine Clr Calc Pharmacy 34.9 ml/min; Est GFR (African American) 48.2 ml/min; Est GFR (Non-African American) 41.6 ml/min; Magnesium 2.2 mg/dl (1.8-2.4)
[2021-04-15 07:35] LABS: Albumin Globulin Ratio 0.6 (0.9-2); Bilirubin,Total 0.2 mg/dl (0.2-1); Globulin 3.6 gm/dl (2.5-4.0); Total Protein 5.8 gm/dl (6.4-8.2); Troponin I 0.023 ng/ml (0-0.045)
[2021-04-15] MEDS: ASPIRIN 81 MG ECTAB PO SCH ×2 (07:50→20:18)
[2021-04-15] MEDS: METOPROLOL TARTRATE 50 MG TAB PO SCH ×2 (07:50→20:19)
[2021-04-15] MEDS: AMIODARONE 200 MG TAB PO SCH (07:50)
[2021-04-15] MEDS: APIXABAN 5 MG TABLET PO SCH ×2 (07:50→20:19)
[2021-04-15] MEDS: FERROUS GLUCONATE 324 MG TAB PO SCH ×2 (07:55→16:28)
[2021-04-15] MEDS: CYANOCOBALAMIN (VITAMIN B-12) 2,500 MCG TAB.SUBL SL SCH (07:55)
[2021-04-15] MEDS: CHOLECALCIFEROL 1,000 UNITS 25 MCG TAB PO SCH (07:55)
[2021-04-15] MEDS: ROFLUMILAST 500 MCG TAB PO SCH (07:56)
[2021-04-15] MEDS: lamoTRIgine 100 MG TAB PO SCH (07:56)
[2021-04-15] MEDS ORDERED: SODIUM CHLORIDE 0.9% 1000ML 500 ML IV ONE (08:18)
[2021-04-15] MEDS: dilTIAZem HCL 125 MG in DEXTROSE 5% 100 ML IV SCH (08:25)
[2021-04-15] MEDS ORDERED: DIGOXIN 250 MCG in SYRINGE 9 ML IV SCH (08:30)
--- NOTE | 2021-04-15 09:07 | Hospitalist Progress Note ---
Date of Service April 15, 2021 Assessment & Plan (1) Atrial fibrillation with rapid ventricular response: Patient with no previous history of atrial fibrillation, anticoagulated for DVT prior to this admission changed Bystolic to Lopressor 50mg BID Cardizem drip at 5mg/hr for the past three days, needed to increase to 10mg/hr this morning due to HR in 170s Amiodarone bolus and drip the past three days to try to convert to sinus rhythm, did not convert her changed to Amiodarone 200mg PO BID per cardiology direction on 04/14 this morning with rates 160-170, no symptoms, gave her NSS fluid bolus and ordered Digoxin 250mcg HR now better in 80's Patient is already anticoagulated with Eliquis 5 mg every 12 hours Echo with EF of 55%, moderate mitral regurgitation had syncope on 04/14, likely related to low volume state and orthostatic changes no pause or tachycardia with syncopal episode (2) JULIANN (acute kidney injury): likely from poor oral intake for a few days Cr up to 1.4 last night, improved to 1.2 this morning, cut fluids back to 50 cc/hr repeat BMP tomorrow (3) Syncope and collapse: happened when she was standing up, likely due to low volume, afib, orthostatic changes? will give IV fluids replace electrolytes (K and Mg normal now) PT/OT evaluations, keep on monitor, check orthostatic changes today (4) Hypomagnesemia: 1.6 last night, up to 2.2 today after 2gm IV replacement (5) Hypokalemia: slightly low at 3.3 last night up to 4.0 this morning stop the KCl in IV fluids (6) UTI (urinary tract infection): 30K Klebsiella on initial culture did not treat initially due to no symptoms now with incontinence, weakness and had syncope will start on Rocephin 1gm IV daily, day 2 today (7) Hypertension: BP stable on Lopressor 50mg BID and Cardizem drip 10mg/hr (8) GERD (gastroesophageal reflux disease): Previous GI bleed, seems to have resolved. Patient is not anemic on presentation Continue PPI as ordered, patient is on Dexilant which will be changed to Protonix while inpatient (9) Hyperlipidemia: Continue Crestor 10 mg nightly or pharmacy equivalent while inpatient (10) DVT (deep venous thrombosis): Eliquis as ordered (11) Elevated troponin I level: demand ischemia from afib with RVR no further work up, no chest pain/pressure echo with preserved EF and no wall motion changes checked troponin twice with the syncopal episode, 0.02 last night and 0.02 this morning (12) SARS-CoV-2 positive: had full vaccine back in January will stop dexamethasone, no evidence that she has viral pneumonia repeat CXR today to see if there are any infiltrates she is slightly hypoxic if there are infiltrates will start back on Dexamethasone Admission and Anticipated Discharge Date Admission Date: April 10, 2021 Subjective patient's heart rate up to 160-170 this morning, did not have chest pain or palpitations, no dyspnea she still feels very weak, no appetite at all, barely drank anything this morning RN increased Cardizem to 10mg/hr and I ordered 500cc NSS bolus as she is likely still on the dry side labs this morning show K 4.0, Cr 1.24, Mag 2.2, troponin 0.02 (same as yesterday) she says that other than feeling weak and cold she has no complaints specifically no chest pain, no dyspnea, no fever/chills she has a non-productive cough will check a CXR to look for any infiltrates given her + COVID status RN placed her on oxymask but her saturations are 99% spoke with Dr. Valdez, he will see patient later today Review of Systems Review of Systems: All systems reviewed & are unremarkable except as noted in Subjective Physical Exam Constitutional: WD/WN, vitals as above no acute distress Neck: trachea midline, no thyromegaly Respiratory: normal respiratory effort, lungs clear to auscultation + cough Cardiovascular: Rate/Rhythm: + tachycardic and + irregularly irregular Heart Sounds: normal S1 and normal S2; no murmur Vessels: normal peripheral pulses; no JVD Extremities: normal capillary refill; no edema Gastrointestinal (Abdomen): normal bowel sounds, soft, nontender, no hepatosplenomegaly Musculoskeletal: no cyanosis or clubbing, extremities motor strength 5/5 Skin: no rashes, warm and dry Neurologic: patellar DTR's 2+ bilat, sensation intact and PERRL, EOMI, accommodation nl, no face palsy, no dysarthria Psychiatric: Orientation: alert, oriented x 3 and cooperative Affect: + anxious affect Lymphatic: no cervical or axillary lymphadenopathy Results & Data Results & Data ([facility]) Vital Signs (Past 12 Hours) Vital Signs Temp Pulse Pulse Resp BP Pulse Ox 04/15/21 08:14 160 H 18 125/72 91 04/15/21 07:52 37 C 105 H 18 150/100 H 99 04/15/21 07:13 100 H 04/15/21 03:15 36.8 C 68 18 113/66 96 04/14/21 23:40 36.5 C 88 20 104/58 L 99 Laboratory Results Laboratory Results - last 24 hr 04/14/21 04/14/21 04/15/21 20:17 20:17 06:16 WBC 6.55 RBC 3.21 L Hgb 9.6 L Hct 30.6 L MCV 95.3 MCH 29.9 MCHC 31.4 L RDW Std Deviation 60.8 H RDW Coeff of Gino 17.3 H Plt Count 223 MPV 10.1 Sodium 136 138 Potassium 3.3 L 4.0 D Chloride 103 105 Carbon Dioxide 30 28 Anion Gap 3.0 5.0 BUN 18 15 Creatinine 1.49 H 1.24 H Est Cr Clr Drug Dosing 28.9 34.9 Est GFR ( Amer) 38.6 48.2 Est GFR (Non-Af Amer) 33.3 41.6 BUN/Creatinine Ratio 11.9 12.3 Glucose 105 H 83 Calcium 8.4 L 8.0 L Magnesium 1.6 L 2.2 Total Bilirubin 0.2 AST 12 L ALT 10 L Alkaline Phosphatase 74 Troponin I 0.025 0.023 Total Protein 5.8 L Albumin 2.2 L Globulin 3.6 Albumin/Globulin Ratio 0.6 L Medications Administered Current Inpatient Medications Acetaminophen (Acetaminophen 325 Mg Tab) 650 mg PO Q4H PRN PRN Reason: Pain or Fever Stop: 05/10/21 20:56 Last Admin: 04/11/21 20:41 Dose: 650 mg Documented by: Albuterol (Albuterol Hfa 8 Gm Inhaler (Combivent Respimat P&T Subs)) 2 puffs INH Q6H PRN PRN Reason: Shortness Of Breath Stop: 05/10/21 21:12 Amiodarone HCl (Amiodarone 200 Mg Tab) 200 mg PO BIDM [facility] Stop: 05/14/21 16:59 Last Admin: 04/15/21 07:50 Dose: 200 mg Documented by: Apixaban (Apixaban 5 Mg Tablet) 5 mg PO BID [facility] Stop: 05/10/21 20:59 Last Admin: 04/15/21 07:50 Dose: 5 mg Documented by: Aspirin (Aspirin 81 Mg Ectab) 81 mg PO BID [facility] Stop: 05/10/21 20:59 Last Admin: 04/15/21 07:50 Dose: 81 mg Documented by: Cholestyramine Resin (Cholestyramine Light 4 Gm Pkt) 4 gm PO BID@1000,2200 PRN PRN Reason: .. Stop: 05/10/21 21:59 Cyanocobalamin (Cyanocobalamin (Vitamin B-12) 2,500 Mcg Tab.Subl) 5,000 mcg SL DAILY [facility] Stop: 05/11/21 08:59 Last Admin: 04/15/21 07:55 Dose: 5,000 mcg Documented by: Ferrous Gluconate (Ferrous Gluconate 324 Mg Tab) 324 mg PO BIDM [facility] Stop: 05/11/21 07:59 Last Admin: 04/15/21 07:55 Dose: 324 mg Documented by: Diltiazem HCl 125 mg/ Dextrose 125 mls @ 10 mls/hr IV .[id number] [facility]; Protocol Stop: 05/11/21 07:14 Last Admin: 04/15/21 08:25 Dose: Not Given Documented by: Ceftriaxone Sodium 1,000 mg/ (Dextrose) 60 mls @ 100 mls/hr IV Q24H [facility]; Protocol Stop: 04/19/21 15:59 Last Infusion: 04/14/21 17:24 Dose: Infused Documented by: Potassium Chloride 30 meq/ (Sodium Chloride) 1,015 mls @ 80 mls/hr IV .[id number] [facility] Stop: 05/14/21 21:44 Last Admin: 04/14/21 23:43 Dose: 80 mls/hr Documented by: Ipratropium [place] (Ipratropium Hfa Inhaler (Combivent Respimat P&T Subs)) 2 puffs INH Q6H PRN PRN Reason: Shortness Of Breath Stop: 05/10/21 21:12 Lamotrigine (Lamotrigine 100 Mg Tab) 150 mg PO QAM [facility] Stop: 05/11/21 08:59 Last Admin: 04/15/21 07:56 Dose: 150 mg Documented by: Metoprolol Tartrate (Metoprolol Tartrate 50 Mg Tab) 50 mg PO BID [facility] Stop: 05/13/21 20:59 Last Admin: 04/15/21 07:50 Dose: 50 mg Documented by: Nitroglycerin (Nitroglycerin Sl 0.4 Mg/Tab Tab) 0.4 mg SL UD PRN PRN Reason: Angina Stop: 05/10/21 20:56 Ondansetron HCl (Ondansetron Inj 2 Mg/Ml 2 Ml Vial) 4 mg IV Q6H PRN PRN Reason: Nausea Stop: 05/10/21 20:56 Oxycodone HCl (Oxycodone Hcl Ir 5 Mg Tab (Immediate Release)) 5 - 10 mg PO Q6 PRN PRN Reason: pain Stop: 04/24/21 21:09 Pantoprazole Sodium (Pantoprazole 40 Mg Tab) 40 mg PO [facility] Stop: 05/10/21 20:59 Last Admin: 04/14/21 20:29 Dose: 40 mg Documented by: Pregabalin (Pregabalin 75 Mg Cap) 75 mg PO HS [facility] Stop: 05/10/21 20:59 Last Admin: 04/14/21 20:22 Dose: 75 mg Documented by: Quetiapine Fumarate (Quetiapine Fumarate 150 Mg Tabcr) 150 mg PO [facility] Stop: 05/10/21 20:59 Last Admin: 04/14/21 20:28 Dose: 150 mg Documented by: Roflumilast (Roflumilast 500 Mcg Tab) 500 mcg PO QAM [facility] Stop: 05/11/21 08:59 Last Admin: 04/15/21 07:56 Dose: 500 mcg Documented by: Rosuvastatin Calcium (Rosuvastatin Calcium 10 Mg Tab) 10 mg PO [facility] Stop: 05/10/21 20:59 Last Admin: 04/14/21 20:27 Dose: 10 mg Documented by: Vitamin D (Cholecalciferol 1,000 Units 25 Mcg Tab) 1,000 units PO DAILY [facility] Stop: 05/11/21 08:59 Last Admin: 04/15/21 07:55 Dose: 1,000 units Documented by: PG Care Time/CCT Total # of Minutes Spent Total Time Spent with Patient: Total time spent is greater than 50% in co ordination of care (as documented) at patient's floor/unit and/or counseling patient: Coding Level of Care Code 56387 Subseq Hosp Care Lvl 3 Diagnoses Atrial fibrillation with rapid ventricular response I48.91 JULIANN (acute kidney injury) N17.9 Syncope and collapse R55 Hypomagnesemia E83.42 Hypokalemia E87.6 UTI (urinary tract infection) N39.0 Hypertension I10 Hypertension type: essential hypertension GERD (gastroesophageal reflux disease) K21.9 Hyperlipidemia E78.5 Hyperlipidemia type: unspecified DVT (deep venous thrombosis) I82.409 Elevated troponin I level R77.8 SARS-CoV-2 positive U07.1 (1) Hypertension Hypertension type: essential hypertension Qualified Code(s): I10 - Essential (primary) hypertension (2) Hyperlipidemia Hyperlipidemia type: unspecified Qualified Code(s): E78.5 - Hyperlipidemia, unspecified
--- NOTE | 2021-04-15 09:41 | XRay Report ---
XR chest 1V portable CLINICAL HISTORY: hypoxia COMPARISON STUDY: Chest radiograph April 10, 2021. Chest CT August 15, 2018. FINDINGS: Patient is mildly rotated. There is no pneumothorax or pleural effusion. Mild cardiomegaly is unchanged. There is no evidence for pulmonary edema. Underlying emphysema is better depicted on pr ior chest CT. The appearance of the chest is unchanged. IMPRESSION: No acute cardiopulmonary findings. No change in appearance of the chest. ACT 112: Negative or not required by law. Electronically signed by: Wes Lui M.D. 04/15/2021 9:40 AM
[2021-04-15] MEDS: SODIUM CHLORIDE 0.9% 1000ML 1,000 ML IV SCH (09:46)
--- NOTE | 2021-04-15 12:33 | Cardiology Progress Note ---
Date of Service April 15, 2021 Assessment & Plan Admission and Anticipated Discharge Date Admission Date: April 10, 2021 Subjective Assessment & Plan (1) Atrial fibrillation with rapid ventricular response: -continue metoprolol tartrate and Eliquis. I would stop her amiodarone as she is not in sinus rhythm at this point. In addition is not controlling her rate well and it may be contributing to her nausea and decreased appetite. I would dig load her with 0.25 mg x 3 doses today then 0.125 mg daily given her age and her renal function. We can adjust the dose accordingly. I would wean her diltiazem drip as allowed. There is no room to add diltiazem on a regular basis given her relatively low blood pressure. We will continue to follow her with you. (2) Elevated troponin I level: -supply demand mismatch from her rapid ventricular response to atrial fibrillation at time presentation. (3) CAD (coronary artery disease): -coronary anatomy described in consultation note. (4) Hypertension: -adequate control. (5) Hyperlipidemia: -continue Crestor. Subjective Discussion with the nursing staff. She clearly has had a decline over the last 24 hours or so. In fact yesterday she had an episode where she became presyncopal with an adequate blood pressure and adequate heart rate and no significant arrhythmias. Her heart rates did subsequent to this increase and she has been tachycardic this morning with her atrial fibrillation as well. Her p.o. intake has been poor. She does feel weak and tired. Physical Exam Physical Exam: Exam per Dr. Gould as patient in [facility]. Results & Data ([facility]) Vital Signs (Past 12 Hours) Vital Signs Temp Pulse Pulse Resp BP Pulse Ox 04/15/21 11:56 37.2 C 83 18 122/59 L 97 04/15/21 08:14 160 H 18 125/72 91 04/15/21 07:52 37 C 105 H 18 150/100 H 99 04/15/21 07:13 100 H 04/15/21 03:15 36.8 C 68 18 113/66 96
[2021-04-15] MEDS: DIGOXIN 0.25 MG TAB PO SCH ×2 (13:20→20:20)
[2021-04-15] MEDS: cefTRIAXone SODIUM 1,000 MG in DEXTROSE 5% 50 ML IV SCH (16:28)
[2021-04-15 18:44] LABS: C Reactive Protein 2.64 mg/dl (0-0.29); T4 Free Thyroxine 1.2 ng/dl (0.8-1.6); Thyroid Stimulating Hormone 0.713 uIu/ml (0.300-4.500)
[2021-04-15] MEDS: ACETAMINOPHEN 325 MG TAB PO PRN (20:17)
[2021-04-15] MEDS: PREGABALIN 75 MG CAP PO SCH (20:18)
[2021-04-15] MEDS: PANTOprazole 40 MG TAB PO SCH (20:18)
[2021-04-15] MEDS: ROSUVASTATIN CALCIUM 10 MG TAB PO SCH (20:19)
[2021-04-16 07:46] LABS: Hemoglobin 9.7 g/dL (12.0-16.0); Mean Corpuscular Hgb Conc 30.3 g/dL (32-36); Mean Corpuscular Volume 99.1 fL (80-100); Mean Platelet Volume 10.6 fL (7.4-10.4); Platelet Count 177 K/uL (130-400); RDW Coefficient of Variation 17.1 % (11.5-14.5); RDW Standard Deviation 61.3 fL (36.4-46.3); Red Blood Count 3.23 M/uL (4.2-5.4); White Blood Count 4.23 K/uL (4.8-10.8)
[2021-04-16 07:53] LABS: BUN Creatinine Ratio 12.3 (10-20); Calcium 8.5 mg/dl (8.5-10.1); Creatinine Clr Calc Pharmacy 45.1 ml/min; Est GFR (African American) 65.7 ml/min; Est GFR (Non-African American) 56.6 ml/min
[2021-04-16] MEDS: DIGOXIN 0.25 MG TAB PO SCH (07:57)
[2021-04-16] MEDS: lamoTRIgine 100 MG TAB PO SCH (07:57)
[2021-04-16] MEDS: ROFLUMILAST 500 MCG TAB PO SCH (07:57)
[2021-04-16] MEDS: FERROUS GLUCONATE 324 MG TAB PO SCH ×2 (07:57→17:29)
[2021-04-16] MEDS: CYANOCOBALAMIN (VITAMIN B-12) 2,500 MCG TAB.SUBL SL SCH (07:58)
[2021-04-16] MEDS: CHOLECALCIFEROL 1,000 UNITS 25 MCG TAB PO SCH (07:58)
[2021-04-16] MEDS: ASPIRIN 81 MG ECTAB PO SCH ×2 (07:58→21:24)
[2021-04-16] MEDS: METOPROLOL TARTRATE 50 MG TAB PO SCH ×2 (07:58→21:25)
[2021-04-16] MEDS: APIXABAN 5 MG TABLET PO SCH ×2 (07:58→21:24)
--- NOTE | 2021-04-16 09:33 | Neurology Consultation ---
Date of Consultation April 16, 2021 Assessment & Plan (1) SARS-CoV-2 positive: (2) Generalized weakness: Popeye Collier is a 80 yo woman w/ PMH of tobacco abuse, COPD, HTN, HLD, bipolar disorder, hypothyroidism, CAD, B12 deficiency, vitamin D deficiency, recurrent pneumonia and transient/recurrent episodes of BUE/BLE proximal predominant muscle weakness, difficulty with ambulation, swallowing difficulty and recurrent transient diplopia with no neurological cause identified whom neurology is consulted on for weakness in the setting of COVID. # Generalized weakness: most likely due to current COVID infection and hip fracture s/p surgery with associated deconditioning. Has never been formally diagnosed with myasthenia gravis and recent workup last year was not c/w MG. - would obtain outpatient EMG at [facility] with consideration of single fiber EMG if this is normal to completely rule out underlying MG - continue supportive care, including speech evaluation for safest route for nutrition at this time - will likely benefit from rehab on discharge to help re-gain strength - for neurology follow up, recommend that she go to [facility] as they can help her get single fiber EMG if needed Thank you for this interesting consult. Plan of care discussed with primary team. Please call or text with questions. 50 minutes was spent spent on counseling/coordination of care/charting. History of Present Illness Attending Physician: Chago Gould, History of Present Illness Popeye Collier is a 80 yo woman w/ PMH of tobacco abuse, COPD, HTN, HLD, bipolar disorder, hypothyroidism, CAD, B12 deficiency, vitamin D deficiency, recurrent pneumonia and transient/recurrent episodes of BUE/BLE proximal predominant muscle weakness, difficulty with ambulation, swallowing difficulty and recurrent transient diplopia with no neurological cause identified whom neurology is consulted on for weakness in the setting of COVID. Her most recent labs include WBC 4.23, hemoglobin low at 9.7 with MCV 99.1, platelets 177, ESR 23, BMP within normal with GFR 56.6, glucose 81, recent A1c 5.3, calcium low at 8 which has improved to 8.5 today, magnesium initially low at 1.6 which improved to 2.2, LFTs within normal, CK within normal, CRP elevated 2.64 in the setting of infection, B12 greater than 2000, TSH within normal with no free T4, UA no infection though urine culture is growing Klebsiella. Recent EKG showed AFib with RVR with possible anterior IL vs demand ischemia noted. TTE showed EF 50-55%, mild LVH, mild TR, moderate MR (stable from prior). Was started on apixaban for AFib; transitioning from amio to digoxin today per cardiology recs. Also on lopressor and diltiazem gtt (though she carries a h/o lightheadedness from diltiazem in the past). Home psychotropic medications continued (lamictal 150mg daily, lyrica 75mg qhs, seroquel 150mg qhs). Attempted to talk with patient on the phone three times but patient would only leaf size picker the phone and hang up. History obtained from Dr Gould who reports that she is endorsing symptoms similar to what she has had in the past in terms of generalized weakness and difficulties swallowing. Has previously been worked up for similar symptoms at least twice in the past (including once in the last year). She saw Dr. Roberts at [facility] in 2019 for the second episode of acute onset of her neurologic symptoms that spontaneously resolved with no treatment. He recommended repeating blood work with a CK, routine neuropathy work-up with A1c, B12, MMA, SPEP with [place], TSH, myasthenic antibodies including LR P4 and VGCC, and repeat EMG/NCS should her symptoms return again. Requested testing showed MG antibodies negative, anti-MUSK antibodies negative, Lambert-Eaton Abs negative, VGCC negative, TSH low at 0.249 with normal free T4, B12 497, DEMETRIO negative and vitamin D 25OH low at 16.4. Did not have repeat EMG performed. Allergies Allergy/AdvReac Type Severity Reaction Status Date / Time metoclopramide Allergy Intermediate ESSENTIAL Verified 04/10/21 17:53 TREMORS clopidogrel Allergy Mild HIVES Verified 04/10/21 17:53 diazepam Allergy Mild DEPRESSION Verified 04/10/21 17:53 diltiazem Allergy Mild Light Verified 04/10/21 17:53 headed erythromycin base Allergy Mild EES, TAKES Verified 04/10/21 17:53 Z-PACKS W/O RXN gabapentin Allergy Mild States Verified 04/10/21 17:53 hands catch fire latex Allergy Mild rips skin Verified 04/10/21 17:53 off lisinopril Allergy Mild COUGH Verified 04/10/21 17:53 losartan Allergy Mild HIVES Verified 04/10/21 17:53 micafungin Allergy Mild rash Verified 04/10/21 17:53 oxycodone Allergy Mild INC. Verified 03/31/21 17:41 DEPRESSION Penicillins Allergy Mild Diarrhea Verified 03/31/21 17:41 promethazine Allergy Mild TROUBLE Verified 03/31/21 17:41 FOCUSING SPEAKING AT HIGHER DOSES Sulfa (Sulfonamide Allergy Mild SKIN Verified 03/31/21 17:41 Antibiotics) BECOMES PHOTOSENSITIVE AND BECOMES RED bupropion Allergy Unknown unknown Verified 03/31/21 17:41 dicyclomine Allergy Unknown Unknown Verified 03/31/21 17:41 potassium chloride Allergy Unknown Unknown Verified 03/31/21 17:41 sucralfate Allergy Unknown Unknown Verified 03/31/21 17:41 Nfmzioc-Ycy-Ahe Reductase AdvReac Intermediate Diarrhea Verified 03/31/21 17:41 Inhibitor amoxicillin AdvReac Mild DIARRHEA Verified 03/31/21 17:41 clavulanic acid AdvReac Mild DIARRHEA Verified 03/31/21 17:41 hydrocodone AdvReac Mild "dont like Verified 03/31/21 17:41 how it makes me feel" Home Medications Medication Instructions Recorded Confirmed Type dexlansoprazole 60 mg PO HS 01/01/19 04/10/21 History lamotrigine 150 mg PO QAM 01/01/19 04/10/21 History nitroglycerin [Nitrostat] 0.4 mg SUBLINGUAL UD PRN 01/01/19 04/10/21 History quetiapine 150 mg PO HS 01/01/19 04/10/21 History roflumilast 500 mcg PO QAM 01/01/19 04/10/21 History Oxygen Home #1 ea 07/21/20 04/10/21 History cholecalciferol (vitamin D3) 25 25 mcg PO DAILY 01/11/21 04/10/21 History mcg (1,000 unit) capsule cyanocobalamin (vitamin B-12) 5,000 mcg PO DAILY 01/11/21 04/10/21 History 5,000 mcg capsule ipratropium 20 mcg-albuterol 100 2 puff INHALATION Q6H PRN g 01/11/21 04/10/21 History mcg/actuation mist for inhalation rosuvastatin 10 mg tablet 10 mg PO HS 01/11/21 04/10/21 History aspirin 81 mg PO BID 39 Days #78 tab 03/11/21 04/10/21 Rx ferrous gluconate 324 mg PO BIDM #60 tab 03/11/21 04/10/21 Rx ondansetron HCl [Zofran] 4 mg PO Q8H PRN #6 tab 03/11/21 04/10/21 Rx oxycodone 5 - 10 mg PO Q6 PRN #10 tab 03/11/21 04/10/21 Rx pregabalin 75 mg PO HS #30 cap 03/11/21 04/10/21 Rx apixaban [Eliquis] 5 mg PO BID #30 tab 04/04/21 04/10/21 Rx cholestyramine-aspartame 4 g PO BID@1000,2200 PRN 04/10/21 04/10/21 History [Cholestyramine Light] nebivolol [Bystolic] 5 mg PO DAILY 04/10/21 04/10/21 History Patient History Medical History Anemia REASON FOR COLONOSCOPY 07/2019 Bipolar 1 disorder Breast cancer (08/23/14) "Abnormal bilateral mammogram Status post core needle biopsy 08/23/2014 revealing intraductal papilloma on the left Right breast showed invasive ductal carcinoma Status post right lumpectomy and sentinel lymph node biopsy 10/08/2014 Stage [id number] Status post completion of radiation therapy 12/24/2014 utilizing hypo- fractionation received 5000 cGy" Breast cancer, right 2013--stage 1--lumpectomy and radiation CAD (coronary artery disease) Change in vision Chronic obstructive pulmonary disease inhaler daily Degenerative joint disease Depression Fall GERD (gastroesophageal reflux disease) History of colon polyps Hyperlipidemia Hypertension Hypothyroidism Medical marijuana use Myocardial Infarction "silent" in --follows with Dr. Gibbs On home oxygen therapy 2L N/C at hs Pancreatitis hx of Papilloma of breast left Sleep apnea Temporal arteritis Unstable angina Unstable angina Surgical History History of bilateral cataract extraction History of bilateral tubal ligation History of breast surgery removal of papilloma of left breast History of cardiac cath x3--last ---no stents History of cholecystectomy History of colonoscopy History of esophagogastroduodenoscopy (EGD) History of lumpectomy of right breast History of right breast biopsy malignant History of tooth extraction all teeth removed History of total hysterectomy with bilateral salpingo-oophorectomy (BSO) Family History Grandfather (Paternal) Family history of diabetes mellitus Other No family history of adverse response to anesthesia Social History Smoking Status: Former smoker Cigarettes Per Day: 20 a day; Second Hand Exposure: No; Hx Alcohol Use: No Hx Substance Use: No Preferred Language: Mohawk Communication Ability: Effective Radiology Equipment Servicer Required: No Beliefs That Will Affect Care: None Current Living Situation: Spouse Other Information That Helps Us Care for You: No Feels Safe at Home: Yes Safety Concerns: Feels Safe At This Time Assistive Devices: Walker Review of Systems Review of Systems: 10 point review of systems completed and negative except as in HPI. Exam (Neuro) Physical Exam: please refer to Dr Gould' exam as patient is COVID positive and limited PPE available. Results & Data ([facility]) Vital Signs (Past 12 Hours) Vital Signs Temp Pulse Pulse Resp BP Pulse Ox 04/16/21 07:57 99 H 04/16/21 07:54 37.5 C 95 H 20 153/85 H 94 04/16/21 07:35 91 H 04/16/21 02:57 36.6 C 82 20 126/77 95 04/15/21 22:58 36.8 C 76 22 131/78 95 PG Care Time/CCT Total # of Minutes Spent Total Time Spent with Patient: Total time spent is greater than 50% in c oordination of care (as documented) at patient's floor/unit and/or counseling patient: Coding Level of Care Code 04331 Initial Inpt Care Lvl 2 Diagnoses SARS-CoV-2 positive U07.1 Generalized weakness R53.1
--- NOTE | 2021-04-16 10:19 | Electrocardiogram Report ---
Test Reason : Blood Pressure : / mmHG Vent. Rate : 092 BPM Atrial Rate : 159 BPM P-R Int : 000 ms QRS Dur : 088 ms QT Int : 364 ms P-R-T Axes : 000 042 112 degrees QTc Int : [address]/T changes consider lateral ischemia Abnormal ECG When compared with ECG of 10-APR-2021 17:16, Vent. rate has decreased BY 76 BPM The degree of ST depression has improved T wave inversion no longer evident in Inferior leads T wave inversion no longer evident in Lateral leads Confirmed by Sky Valdez ([id number]) on 04/16/2021 10:19:06 AM Referred By: Abiel Clark Confirmed By:Sky Valdez
--- NOTE | 2021-04-16 10:21 | Electrocardiogram Report ---
Test Reason : Blood Pressure : / mmHG Vent. Rate : 097 BPM Atrial Rate : 340 BPM P-R Int : 000 ms QRS Dur : 078 ms QT Int : 366 ms P-R-T Axes : 000 034 110 degrees QTc Int : 464 ms Atrial fibrillation Nonspecific ST and T wave abnormality Abnormal ECG When compared with ECG of 14-APR-2021 18:36, (unconfirmed) No significant change was found Confirmed by Sky Valdez ([id number]) on 04/16/2021 10:20:38 AM Referred By: Abiel Clark Confirmed By:Sky Valdez
[2021-04-16] MEDS: ONDANSETRON INJ 2 MG/ML 2 ML VIAL IV PRN ×2 (11:06→21:22)
[2021-04-16] MEDS: SODIUM CHLORIDE 0.9% 1000ML 1,000 ML IV SCH (11:13)
--- NOTE | 2021-04-16 12:17 | Cardiology Progress Note ---
Date of Service April 16, 2021 Assessment & Plan Admission and Anticipated Discharge Date Admission Date: April 10, 2021 Results & Data ([facility]) Vital Signs (Past 12 Hours) Vital Signs Temp Pulse Pulse Resp BP Pulse Ox 04/16/21 11:19 37.7 C H 87 18 168/68 H 96 04/16/21 07:57 99 H 04/16/21 07:54 37.5 C 95 H 20 153/85 H 94 04/16/21 07:35 91 H 04/16/21 02:57 36.6 C 82 20 126/77 95 Subjective Assessment & Plan (1) Atrial fibrillation with rapid ventricular response: -continue metoprolol tartrate and Eliquis. With dig loading her heart rate has improved. I would continue 0.125 mg of digoxin daily. With a slower heart rate and improvement in her diastolic filling. Her blood pressure has increased. If her blood pressure remains elevated and her heart rate remains fast her metoprolol can be uptitrated from 50 mg twice daily to 50 mg 3 times daily. She should remain on anticoagulation. (2) Elevated troponin I level: -supply demand mismatch from her rapid ventricular response to atrial fibrillation at time presentation. (3) CAD (coronary artery disease): -coronary anatomy described in consultation note. (4) Hypertension: -adequate control. (5) Hyperlipidemia: -continue Crestor. Subjective Discussion with the nursing staff and hospitalists
--- NOTE | 2021-04-16 13:08 | Hospitalist Progress Note ---
Date of Service April 16, 2021 Assessment & Plan (1) Generalized weakness: review neurology consult for more details, h/o such extensive work up in the past including EMG and serology studies for autoimmune etiology, all have been negative past episodes self limiting, brought on by stress similar to this episode Dr. Boss recommends outpatient EMG testing will continue to treat afib, UTI, colitis and get PT/OT to work with her she has mentioned going home, suspect she will need rehab she was just at [facility] after hip fracture so she is not too thrilled with that idea (2) Diarrhea: C diff negative, stool culture sent does not look like melena, has appearance of orange marmalade, small volumes but frequent, more of a nuisance no abdominal pain CT abd/pelvis on 04/16 with proctocolitis, non specific will try treating with Cipro/Flagyl IV to look for improvement add Imodium PRN and Questran on NSS at 50cc/hr, not eating much (3) Atrial fibrillation with rapid ventricular response: Patient with no previous history of atrial fibrillation, anticoagulated for DVT prior to this admission changed Bystolic to Lopressor 50mg BID initially on Cardizem drip and amiodarone drip, now both are stopped did not convert to NSR as cardiology had hoped Patient is already anticoagulated with Eliquis 5 mg every 12 hours Echo with EF of 55%, moderate mitral regurgitation now rates are well controlled with Lopressor 50mg BID and Digoxin 125mcg daily continue to monitor (4) JULIANN (acute kidney injury): likely from poor oral intake for a few days Cr up to 1.4 two days ago, now down to 0.96 not eating well, hardly anything at all continue gentle hydration with NSS at 50cc/hr (5) Syncope and collapse: happened when she was standing up, likely due to low volume, afib, orthostatic changes? will give IV fluids replace electrolytes (K and Mg normal now) PT/OT evaluations, keep on monitor no further episodes but she has not been out of bed since that time either (6) Hypomagnesemia: resolved after replacement (7) Hypokalemia: 4.0 again today (8) UTI (urinary tract infection): 30K Klebsiella on initial culture did not treat initially due to no symptoms now with incontinence, weakness and had syncope got three days of Rocephin due to colitis on CT will change to Cipro which will also cover the urine (9) Hypertension: BP stable on Lopressor 50mg BID and Cardizem drip 10mg/hr (10) GERD (gastroesophageal reflux disease): Previous GI bleed, seems to have resolved. Patient is not anemic on presentation Continue PPI as ordered, patient is on Dexilant which will be changed to Protonix while inpatient (11) Hyperlipidemia: Continue Crestor 10 mg nightly or pharmacy equivalent while inpatient (12) DVT (deep venous thrombosis): Eliquis as ordered (13) Elevated troponin I level: demand ischemia from afib with RVR no further work up, no chest pain/pressure echo with preserved EF and no wall motion changes checked troponin twice with the syncopal episode, 0.02 last night and 0.02 this morning (14) SARS-CoV-2 positive: had full vaccine back in January no dexamethasone, no evidence that she has viral pneumonia repeat CXR shows no infiltrates as well the diarrhea could be due to COVID? 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 Boss as well as neuromuscular specialist at [facility] extensive testing last year did not show any etiology for the weakness, specifically EMG and antibodies for myasthenia gravis check TSH and B12, normal cortisol levels still pending, unsure if there is an issue with the weekend in addition to the weakness, she has frequent very small stools, the RN says they are like "orange marmalade" no blood seen C diff negative sent her for CT a/p that showed proctocolitis, no diverticulitis, long segment of SMA stenosis but no other acute findings d/w RN, will continue on gentle fluids as no PO intake, give her Cipro/Flagyl for colitis, stop the Rocephin as the Cipro will cover Klebsiella UTI in good news, her HR is well controlled on Lopressor 50mg BID and digoxin 125mcg daily, discussed with Dr. Valdez, no other changes for now off of Cardizem Review of Systems Review of Systems: All systems reviewed & are unremarkable except as noted in Subjective Physical Exam Constitutional: WD/WN, vitals as above no acute distress Neck: trachea midline, no thyromegaly Respiratory: normal respiratory effort, lungs clear to auscultation + cough Cardiovascular: Rate/Rhythm: regular rate and + irregularly irregular Heart Sounds: normal S1 and normal S2; no murmur Vessels: normal peripheral pulses; no JVD Extremities: normal capillary refill; no edema Gastrointestinal (Abdomen): normal bowel sounds, soft, nontender, no hepatosplenomegaly Musculoskeletal: Head/Neck/Chest: normocephalic, head atraumatic and neck supple Extremities: extremities normal to inspection and + abnormal strength (diffuse weakness, most pronounced in left lower extremity); no cyanosis, no clubbing and no petechiae Skin: no rashes, warm and dry Neurologic: normal touch/pain/proprioception, CN's II-XI intact bilaterally, normal sensation to monofilament, moves all extremities and awake; no focal motor deficits Psychiatric: Orientation: alert, oriented x 3 and cooperative Affect: + anxious affect Lymphatic: no cervical or axillary lymphadenopathy Results & Data Results & Data ([facility]) Vital Signs (Past 12 Hours) Vital Signs Temp Pulse Pulse Resp BP Pulse Ox 04/16/21 11:19 37.7 C H 87 18 168/68 H 96 04/16/21 07:57 99 H 04/16/21 07:54 37.5 C 95 H 20 153/85 H 94 04/16/21 07:35 91 H 04/16/21 02:57 36.6 C 82 20 126/77 95 Laboratory Results Laboratory Results - last 24 hr 04/15/21 04/15/21 04/15/21 17:51 17:51 17:51 WBC RBC Hgb Hct MCV MCH MCHC RDW Std Deviation RDW Coeff of Gino Plt Count MPV ESR Sodium Potassium Chloride Carbon Dioxide Anion Gap BUN Creatinine Est Cr Clr Drug Dosing Est GFR ( Amer) Est GFR (Non-Af Amer) BUN/Creatinine Ratio Glucose Calcium C-Reactive Protein 2.64 H Vitamin B12 TSH 0.713 Free T4 1.20 Thyroxine (T4) Pending Free T3 Pending Random Cortisol Pending Cortisol AM Sample Stl C. diff Tox B Gene 04/15/21 04/15/21 04/16/21 17:51 17:51 06:08 WBC RBC Hgb Hct MCV MCH MCHC RDW Std Deviation RDW Coeff of Gino Plt Count MPV ESR 23 Sodium Potassium Chloride Carbon Dioxide Anion Gap BUN Creatinine Est Cr Clr Drug Dosing Est GFR ( Amer) Est GFR (Non-Af Amer) BUN/Creatinine Ratio Glucose Calcium C-Reactive Protein Vitamin B12 > 2000 H TSH Free T4 Thyroxine (T4) Free T3 Random Cortisol Cortisol AM Sample Pending Stl C. diff Tox B Gene 04/16/21 04/16/21 04/16/21 06:08 06:08 11:23 WBC 4.23 L RBC 3.23 L Hgb 9.7 L Hct 32.0 L MCV 99.1 MCH 30.0 MCHC 30.3 L RDW Std Deviation 61.3 H RDW Coeff of Gino 17.1 H Plt Count 177 MPV 10.6 H ESR Sodium 142 Potassium 4.0 Chloride 109 H Carbon Dioxide 28 Anion Gap 5.0 BUN 12 Creatinine 0.96 Est Cr Clr Drug Dosing 45.1 Est GFR ( Amer) 65.7 Est GFR (Non-Af Amer) 56.6 BUN/Creatinine Ratio 12.3 Glucose 81 Calcium 8.5 C-Reactive Protein Vitamin B12 TSH Free T4 Thyroxine (T4) Free T3 Random Cortisol Cortisol AM Sample Stl C. diff Tox B Gene Negative Cdiff Gene Diagnostic Findings CT abdomen/pelvis IMPRESSION: 1. Findings are consistent with a nonspecific proctocolitis, greatest involving the rectosigmoid. 2. Trace pleural effusions. 3. Emphysema. 4. 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 5. Additional findings as above. Medications Administered Current Inpatient Medications Acetaminophen (Acetaminophen 325 Mg Tab) 650 mg PO Q4H PRN PRN Reason: Pain or Fever Stop: 05/10/21 20:56 Last Admin: 04/15/21 20:17 Dose: 650 mg Documented by: Albuterol (Albuterol Hfa 8 Gm Inhaler (Combivent Respimat P&T Subs)) 2 puffs INH Q6H PRN PRN Reason: Shortness Of Breath Stop: 05/10/21 21:12 Apixaban (Apixaban 5 Mg Tablet) 5 mg PO BID JANINE Stop: 05/10/21 20:59 Last Admin: 04/16/21 07:58 Dose: 5 mg Documented by: Aspirin (Aspirin 81 Mg Ectab) 81 mg PO BID [facility] Stop: 05/10/21 20:59 Last Admin: 04/16/21 07:58 Dose: 81 mg Documented by: Cholestyramine Resin (Cholestyramine Light 4 Gm Pkt) 4 gm PO BID@1000,2200 PRN PRN Reason: .. Stop: 05/10/21 21:59 Cyanocobalamin (Cyanocobalamin (Vitamin B-12) 2,500 Mcg Tab.Subl) 5,000 mcg SL DAILY JANINE Stop: 05/11/21 08:59 Last Admin: 04/16/21 07:58 Dose: 5,000 mcg Documented by: Digoxin (Digoxin 0.125 Mg Tab) 0.125 mg PO DAILY@1600 [facility] Stop: 05/16/21 15:59 Ferrous Gluconate (Ferrous Gluconate 324 Mg Tab) 324 mg PO BIDM [facility] Stop: 05/11/21 07:59 Last Admin: 04/16/21 07:57 Dose: 324 mg Documented by: Diltiazem HCl 125 mg/ Dextrose 125 mls @ 0 mls/hr IV .Q0M [facility]; Protocol Stop: 05/11/21 07:14 Last Titration: 04/16/21 00:05 Dose: 0 mg/hr, 0 mls/hr Documented by: Ceftriaxone Sodium 1,000 mg/ (Dextrose) 60 mls @ 100 mls/hr IV Q24H [facility]; Protocol Stop: 04/19/21 15:59 Last Infusion: 04/15/21 17:04 Dose: Infused Documented by: Sodium Chloride (Nss 1000ml) 1,000 mls @ 50 mls/hr IV .Q20H [facility] Stop: 05/15/21 09:14 Last Admin: 04/16/21 11:13 Dose: 50 mls/hr Documented by: Ipratropium Forgan (Ipratropium Hfa Inhaler (Combivent Respimat P&T Subs)) 2 puffs INH Q6H PRN PRN Reason: Shortness Of Breath Stop: 05/10/21 21:12 Lamotrigine (Lamotrigine 100 Mg Tab) 150 mg PO QAM [facility] Stop: 05/11/21 08:59 Last Admin: 04/16/21 07:57 Dose: 150 mg Documented by: Loperamide HCl (Loperamide Hcl 2 Mg Cap) 2 mg PO Q6H PRN PRN Reason: Diarrhea Stop: 05/16/21 11:20 Metoprolol Tartrate (Metoprolol Tartrate 50 Mg Tab) 50 mg PO BID [facility] Stop: 05/13/21 20:59 Last Admin: 04/16/21 07:58 Dose: 50 mg Documented by: Nitroglycerin (Nitroglycerin Sl 0.4 Mg/Tab Tab) 0.4 mg SL UD PRN PRN Reason: Angina Stop: 05/10/21 20:56 Ondansetron HCl (Ondansetron Inj 2 Mg/Ml 2 Ml Vial) 4 mg IV Q6H PRN PRN Reason: Nausea Stop: 05/10/21 20:56 Last Admin: 04/16/21 11:06 Dose: 4 mg Documented by: Oxycodone HCl (Oxycodone Hcl Ir 5 Mg Tab (Immediate Release)) 5 - 10 mg PO Q6 PRN PRN Reason: pain Stop: 04/24/21 21:09 Pantoprazole Sodium (Pantoprazole 40 Mg Tab) 40 mg PO [facility] Stop: 05/10/21 20:59 Last Admin: 04/15/21 20:18 Dose: 40 mg Documented by: Pregabalin (Pregabalin 75 Mg Cap) 75 mg PO [facility] Stop: 05/10/21 20:59 Last Admin: 04/15/21 20:18 Dose: 75 mg Documented by: Quetiapine Fumarate (Quetiapine Fumarate 150 Mg Tabcr) 150 mg PO [facility] Stop: 05/10/21 20:59 Last Admin: 04/15/21 20:19 Dose: 150 mg Documented by: Roflumilast (Roflumilast 500 Mcg Tab) 500 mcg PO QA JANINE Stop: 05/11/21 08:59 Last Admin: 04/16/21 07:57 Dose: 500 mcg Documented by: Rosuvastatin Calcium (Rosuvastatin Calcium 10 Mg Tab) 10 mg PO [facility] Stop: 05/10/21 20:59 Last Admin: 04/15/21 20:19 Dose: 10 mg Documented by: Vitamin D (Cholecalciferol 1,000 Units 25 Mcg Tab) 1,000 units PO DAILY JANINE Stop: 05/11/21 08:59 Last Admin: 04/16/21 07:58 Dose: 1,000 units Documented by: PG Care Time/CCT Total # of Minutes Spent Total Time Spent with Patient: Total time spent is greater than 50% in coordination of care (as documented) at patient's floor/unit and/or counseling patient: Coding Level of Care Code 95759 Subseq Hosp Care Lvl 3 Diagnoses Generalized weakness R53.1 Diarrhea R19.7 Atrial fibrillation with rapid ventricular response I48.91 JULIANN (acute kidney injury) N17.9 Syncope and collapse R55 Hypomagnesemia E83.42 Hypokalemia E87.6 UTI (urinary tract infection) N39.0 Hypertension I10 Hypertension type: essential hypertension GERD (gastroesophageal reflux disease) K21.9 Hyperlipidemia E78.5 Hyperlipidemia type: unspecified DVT (deep venous thrombosis) I82.409 Elevated troponin I level R77.8 SARS-CoV-2 positive U07.1 (1) Hyperlipidemia Hyperlipidemia type: unspecified Qualified Code(s): E78.5 - Hyperlipidemia, unspecified (2) Hypertension Hypertension type: essential hypertension Qualified Code(s): I10 - Essential (primary) hypertension
[2021-04-16] MEDS ORDERED: OPTIRAY 320 100ml IV ONE (13:18)
--- NOTE | 2021-04-16 14:01 | CT Scan Report ---
CT SCAN OF THE ABDOMEN AND PELVIS WITH IV CONTRAST CLINICAL HISTORY: Generalized abdominal pain. Diarrhea. COMPARISON STUDY: Abdominal CT dated 03/31/2021. TECHNIQUE: Following the IV administration of 86 cc of Optiray 320, CT scan of the abdomen and pelvi s is performed from the lung bases to the proximal femora. Images are reviewed in the axial, sagittal , and coronal planes. IV contrast was administered without complication. A dose lowering technique wa s utilized adhering to the principles of ALARA. CT DOSE: 652.81 mGy.cm FINDINGS: Lung bases: The heart is normal in size and without pericardial effusion. The coronary arteries are d ensely calcified. Emphysematous change is noted. There are small pleural effusions with dependent ate lectasis. There is a small hiatal hernia. Liver: The contrast-enhanced liver is normal in size, contour, and attenuation. There is minimal cent ral intrahepatic biliary ductal dilatation. The hepatic veins and portal veins are patent. Gallbladder: Surgically absent noting clips in the gallbladder fossa. Spleen: Normal in size and attenuation. Pancreas: Moderately atrophic and grossly unremarkable. Adrenal glands: Unremarkable. Kidneys: The contrast enhanced kidneys demonstrate cortical atrophy and are without hydronephrosis. A 2.5 cm cyst is noted in the interpolar left kidney. The kidneys enhance symmetrically. Abdominal vasculature: The abdominal aorta is normal in course and caliber noting advanced atheroscle rotic calcification. There is a long segment of high-grade stenosis of the superior mesenteric artery . Bowel: There is wall thickening of the left colon with mild stranding duration. This is greatest invo lving the rectosigmoid, and is consistent with a nonspecific proctocolitis. No bowel obstruction is s een. There are scattered colonic diverticula without CT evidence of acute diverticulitis. The appendi x is well-visualized and normal. Peritoneum: There is no intraperitoneal free air or abdominal ascites. Foci of induration within the ventral abdominal pannus are likely related to subcutaneous injections. Lymphadenopathy: None. Pelvic viscera: The bladder is normal as visualized. Trace dependent contrast is suggested within the bladder lumen. The uterus is surgically absent. No adnexal lesion is seen Skeletal structures: The skeletal structures are osteopenic. There is mild lumbosacral spondylosis. N o lytic or blastic lesions are seen. Chronic posttraumatic deformity and postoperative change is part ially visualized in the left proximal femur. IMPRESSION: 1. Findings are consistent with a nonspecific proctocolitis, greatest involving the rectosigmoid. 2. Trace pleural effusions. 3. Emphysema. 4. 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 5. Additional findings as above. ACT 112: Negative or not required by law. Electronically signed by: Doug Mancilla M.D. 04/16/2021 2:00 PM
[2021-04-16] MEDS: LOPERAMIDE HCL 2 MG CAP PO PRN ×2 (14:02→21:22)
[2021-04-16] MEDS: CIPROFLOXACIN / D5W 400 MG/200 ML BAG IV SCH (15:46)
[2021-04-16] MEDS: metroNIDAZOLE 500 MG/100 ML BAG IV SCH ×2 (15:46→21:25)
[2021-04-16] MEDS: DIGOXIN 0.125 MG TAB PO SCH (17:29)
[2021-04-16] MEDS: ACETAMINOPHEN 325 MG TAB PO PRN (21:22)
[2021-04-16] MEDS: PREGABALIN 75 MG CAP PO SCH (21:22)
[2021-04-16] MEDS: ROSUVASTATIN CALCIUM 10 MG TAB PO SCH (21:24)
[2021-04-16] MEDS: PANTOprazole 40 MG TAB PO SCH (21:25)
[2021-04-17] MEDS: metroNIDAZOLE 500 MG/100 ML BAG IV SCH ×3 (05:30→22:32)
[2021-04-17 06:18] LABS: Hemoglobin 9.5 g/dL (12.0-16.0); Mean Corpuscular Hemoglobin 29.9 pg (25-34); Mean Corpuscular Hgb Conc 30.6 g/dL (32-36); Mean Corpuscular Volume 97.5 fL (80-100); Mean Platelet Volume 10.3 fL (7.4-10.4); Platelet Count 154 K/uL (130-400); RDW Coefficient of Variation 16.3 % (11.5-14.5); RDW Standard Deviation 58.6 fL (36.4-46.3); Red Blood Count 3.18 M/uL (4.2-5.4); White Blood Count 3.74 K/uL (4.8-10.8)
[2021-04-17 06:52] LABS: Est GFR (African American) 68.2 ml/min; Potassium 3.8 mmol/L (3.5-5.1)
[2021-04-17 06:53] LABS: Creatinine Clr Calc Pharmacy 46.3 ml/min; Est GFR (Non-African American) 58.9 ml/min
[2021-04-17] MEDS: SODIUM CHLORIDE 0.9% 1000ML 1,000 ML IV SCH ×2 (06:59→13:55)
[2021-04-17] MEDS: CIPROFLOXACIN / D5W 400 MG/200 ML BAG IV SCH ×2 (07:39→20:04)
[2021-04-17] MEDS: FERROUS GLUCONATE 324 MG TAB PO SCH ×2 (07:41→15:24)
[2021-04-17] MEDS: lamoTRIgine 100 MG TAB PO SCH (07:41)
[2021-04-17] MEDS: ASPIRIN 81 MG ECTAB PO SCH ×2 (07:41→20:05)
[2021-04-17] MEDS: ROFLUMILAST 500 MCG TAB PO SCH (07:41)
[2021-04-17] MEDS: CYANOCOBALAMIN (VITAMIN B-12) 2,500 MCG TAB.SUBL SL SCH (07:42)
[2021-04-17] MEDS: APIXABAN 5 MG TABLET PO SCH ×2 (07:42→20:05)
[2021-04-17] MEDS: METOPROLOL TARTRATE 50 MG TAB PO SCH ×2 (07:42→20:06)
[2021-04-17] MEDS: CHOLECALCIFEROL 1,000 UNITS 25 MCG TAB PO SCH (07:42)
--- NOTE | 2021-04-17 08:16 | Hospitalist Progress Note ---
Date of Service April 17, 2021 Assessment & Plan (1) Generalized weakness: neurology consult ->most likely due to current COVID infection and hip fracture s/p surgery with associated deconditioning. Has never been formally diagnosed with myasthenia gravis and recent workup last year was not c/w MG. - would obtain outpatient EMG at [facility] with consideration of single fiber EMG if this is normal to completely rule out underlying MG - continue supportive care, including speech evaluation for safest route for nutrition at this time - will likely benefit from rehab on discharge to help re-gain strength - for neurology follow up, recommend that she go to [facility] neuromuscular clinic as they can help her get single fiber EMG if needed will continue to treat afib, UTI, colitis and get PT/OT to work with her she has mentioned going home, will evaluate need for (2) Diarrhea: C diff negative, stool culture sent does not look like melena, has appearance of orange marmalade, small volumes but frequent, more of a nuisance no abdominal pain CT abd/pelvis on 04/16 with proctocolitis, non specific will try treating with Cipro/Flagyl IV to look for improvement add Imodium PRN and Questran on NSS at 50cc/hr, not eating much (3) Atrial fibrillation with rapid ventricular response: Patient with no previous history of atrial fibrillation, anticoagulated for DVT prior to this admission changed Bystolic to Lopressor 50mg BID initially on Cardizem drip and amiodarone drip, now both are stopped did not convert to NSR as cardiology had hoped Patient is already anticoagulated with Eliquis 5 mg every 12 hours Echo with EF of 55%, moderate mitral regurgitation now rates are well controlled with Lopressor 50mg BID and Digoxin 125mcg every other daily, check dig level in am (4) JULIANN (acute kidney injury): likely from poor oral intake for a few days, also states that they eat nothing but junk food Cr up to 1.4 two days ago, now down to 0.96 continue gentle hydration with NSS at 50cc/hr (5) Syncope and collapse: happened when she was standing up, likely due to low volume, afib, orthostatic changes? covid has been associated with some orthostasis in other pts will give IV fluids replace electrolytes (K and Mg normal now) PT/OT evaluations, keep on monitor no further episodes but she has not been out of bed since that time either (6) Hypomagnesemia: resolved after replacement (7) Hypokalemia: replete (8) UTI (urinary tract infection): 30K Klebsiella on initial culture did not treat initially due to no symptoms now with incontinence, weakness and had syncope got three days of Rocephin due to colitis on CT will change to Cipro/flagyl which will also cover the urine (9) Hypertension: BP stable on Lopressor 50mg BID (10) GERD (gastroesophageal reflux disease): Previous GI bleed, seems to have resolved. Patient is not anemic on presentation Continue PPI as ordered, patient is on Dexilant which will be changed to Protonix while inpatient (11) Hyperlipidemia: Continue Crestor 10 mg nightly or pharmacy equivalent while inpatient (12) DVT (deep venous thrombosis): Eliquis as ordered (13) Elevated troponin I level: demand ischemia from afib with RVR no further work up, no chest pain/pressure echo with preserved EF and no wall motion changes checked troponin twice with the syncopal episode, 0.02 last night and 0.02 this morning (14) SARS-CoV-2 positive: had full vaccine back in January no dexamethasone, no evidence that she has viral pneumonia repeat CXR shows no infiltrates as well the diarrhea could be due to COVID? treating with Imodium and Questran Admission and Anticipated Discharge Date Admission Date: April 10, 2021 Subjective pt feels weak and tired, she has had some variable heart rate control and will reduce digoxin and check dose in am ,will also check am cortisol. Review of Systems Review of Systems: Mild to moderate distress and fatigue no headache, blurry or double vision no speech or swallowing issues no chest pain, pressure or palpitations no shortness of breath, cough or wheezes no abdominal pain, nausea or vomiting, diarrhea or constipation no dysuria, hematuria or frequency no focal joint pain or swelling no back pain, CVA tenderness or radicular pain no bruising, bleeding or rashes no focal signs of weakness or numbness or altered sensation complaints of depression not ready for antidepressant. Physical Exam Physical Exam: The patient appeared fatigued and depressed Vital signs as documented. Head exam is normocephalic atraumatic Neck is without JVD, thyromegaly, or carotid bruits. Lungs are clear to auscultation, no focal loss of breath sounds Cardiac exam, Rhythm is regular.. No murmurs, rubs or gallops. Abdominal exam reveals normal bowel sounds, soft non tender, no masses Extremities are nonedematous and both pedal pulses are present Neurologic exam is alert and oriented, no focal loss of strength or sensation Skin is without bruises or rashes Psychologically is with concerns for depression Results & Data Results & Data ([facility]) Vital Signs (Past 12 Hours) Vital Signs Temp Pulse Pulse Resp BP Pulse Ox 04/17/21 07:37 98.2 F 84 18 152/86 H 97 04/17/21 07:05 80 04/17/21 03:36 97.9 F 77 20 131/70 95 04/16/21 22:25 98.4 F 68 18 107/57 L 95 PG Care Time/CCT Total # of Minutes Spent Total Time Spent with Patient: Total time spent is greater than 50% in coordination of care (as documented) at patient's floor/unit and/or counseling patient: Coding Level of Care Code 41676 Subseq Hosp Care Lvl 3 Diagnoses Generalized weakness R53.1 Diarrhea R19.7 Atrial fibrillation with rapid ventricular response I48.91 JULIANN (acute kidney injury) N17.9 Syncope and collapse R55 Hypomagnesemia E83.42 Hypokalemia E87.6 UTI (urinary tract infection) N39.0 Hypertension I10 Hypertension type: essential hypertension GERD (gastroesophageal reflux disease) K21.9 Hyperlipidemia E78.5 Hyperlipidemia type: unspecified DVT (deep venous thrombosis) I82.409 Elevated troponin I level R77.8 SARS-CoV-2 positive U07.1 (1) Hyperlipidemia Hyperlipidemia type: unspecified Qualified Code(s): E78.5 - Hyperlipidemia, unspecified (2) Hypertension Hypertension type: essential hypertension Qualified Code(s): I10 - Essential (primary) hypertension
[2021-04-17 09:40] LABS: T3 Free 2.08 pg/ml (2.3-4.2); T4 Thyroxine 6.4 mcg/dl (4.5-10.9)
[2021-04-17] MEDS: ONDANSETRON INJ 2 MG/ML 2 ML VIAL IV PRN (15:21)
[2021-04-17] MEDS: LOPERAMIDE HCL 2 MG CAP PO PRN (15:21)
[2021-04-17] MEDS: DIGOXIN 0.125 MG TAB PO SCH (17:10)
[2021-04-17] MEDS: oxyCODONE HCL IR 5 MG TAB (IMMEDIATE RELEASE) PO PRN (20:03)
[2021-04-17] MEDS: ROSUVASTATIN CALCIUM 10 MG TAB PO SCH (20:06)
[2021-04-17] MEDS: PANTOprazole 40 MG TAB PO SCH (20:06)
[2021-04-17] MEDS: PREGABALIN 75 MG CAP PO SCH (21:36)
[2021-04-18] MEDS: LOPERAMIDE HCL 2 MG CAP PO PRN ×2 (01:19→21:49)
[2021-04-18] MEDS: ONDANSETRON INJ 2 MG/ML 2 ML VIAL IV PRN ×3 (02:35→20:08)
[2021-04-18] MEDS: metroNIDAZOLE 500 MG/100 ML BAG IV SCH (05:10)
[2021-04-18 07:33] LABS: BUN Creatinine Ratio 8.3 (10-20); Calcium 7.8 mg/dl (8.5-10.1); Creatinine Clr Calc Pharmacy 50.2 ml/min; Est GFR (Non-African American) 64.7 ml/min
[2021-04-18] MEDS: CIPROFLOXACIN / D5W 400 MG/200 ML BAG IV SCH (07:42)
[2021-04-18] MEDS: FERROUS GLUCONATE 324 MG TAB PO SCH ×2 (07:45→16:58)
[2021-04-18] MEDS: ASPIRIN 81 MG ECTAB PO SCH ×2 (07:45→20:11)
[2021-04-18] MEDS: CHOLECALCIFEROL 1,000 UNITS 25 MCG TAB PO SCH (07:45)
[2021-04-18] MEDS: METOPROLOL TARTRATE 50 MG TAB PO SCH ×2 (07:45→20:10)
[2021-04-18] MEDS: ROFLUMILAST 500 MCG TAB PO SCH (07:46)
[2021-04-18] MEDS: CYANOCOBALAMIN (VITAMIN B-12) 2,500 MCG TAB.SUBL SL SCH (07:46)
[2021-04-18] MEDS: lamoTRIgine 100 MG TAB PO SCH (07:46)
[2021-04-18] MEDS: APIXABAN 5 MG TABLET PO SCH ×2 (07:57→20:10)
[2021-04-18 08:21] LABS: Potassium 3.7 mmol/L (3.5-5.1)
[2021-04-18 08:24] LABS: Magnesium 1.7 mg/dl (1.8-2.4)
[2021-04-18] MEDS: SODIUM CHLORIDE 0.9% 1000ML 1,000 ML IV SCH (12:48)
[2021-04-18] MEDS: metroNIDAZOLE 500 MG TAB PO SCH ×2 (12:48→20:12)
--- NOTE | 2021-04-18 14:26 | Hospitalist Progress Note ---
Date of Service April 18, 2021 Assessment & Plan (1) Generalized weakness: neurology consult ->most likely due to current COVID infection and hip fracture s/p surgery with associated deconditioning. Has never been formally diagnosed with myasthenia gravis and recent workup last year was not c/w MG. - would obtain outpatient EMG at [facility] [place] with consideration of single fiber EMG if this is normal to completely rule out underlying MG - continue supportive care, including speech evaluation for safest route for nutrition at this time - will likely benefit from rehab on discharge to help re-gain strength - for neurology follow up, recommend that she go to [facility] neuromuscular clinic as they can help her get single fiber EMG if needed will continue to treat afib, UTI, colitis and get PT/OT to work with her she has mentioned going home, will evaluate need for her ability for independence We did discuss her depression and its impact on her feeling of weakness, she admits that this is a real issue for her. She is in agreement to try additional medicines to help her depression oveall at this time her Dysthymia is her biggest issue (2) Diarrhea: C diff negative, stool culture negative, improved with antibiotics CT abd/pelvis on 04/16 with proctocolitis, non specific will try treating with Cipro/Flagyl po to look for improvement add Imodium PRN and Questran on NSS at 50cc/hr, not eating much (3) Atrial fibrillation with rapid ventricular response: Patient with no previous history of atrial fibrillation, anticoagulated for DVT prior to this admission changed Bystolic to Lopressor 50mg BID initially on Cardizem drip and amiodarone drip, now both are stopped did not convert to NSR as cardiology had hoped Patient is already anticoagulated with Eliquis 5 mg every 12 hours Echo with EF of 55%, moderate mitral regurgitation now rates are well controlled with Lopressor 50mg BID and Digoxin 125mcg every daily, checked dig level and was appropriate, Cardiology has supported daily digoxin despite some lower heart rates. (4) JULIANN (acute kidney injury): likely from poor oral intake for a few days, also states that they eat nothing but junk food Cr up to 1.4 two days ago, now down to 0.96 continue gentle hydration with NSS at 50cc/hr, until appetite is improved she did try orange ice today (5) Syncope and collapse: happened when she was standing up, likely due to low volume, afib, orthostatic changes? covid has been associated with some orthostasis in other pts will give IV fluids replace electrolytes (K and Mg normal now) PT/OT evaluations, keep on monitor no further episodes but she has not been out of bed since that time either (6) Hypomagnesemia: resolved after replacement (7) Hypokalemia: replete (8) UTI (urinary tract infection): 30K Klebsiella on initial culture did not treat initially due to no symptoms now with incontinence, weakness and had syncope got three days of Rocephin due to colitis on CT will change to Cipro/flagyl which will also cover the urine (9) Hypertension: BP stable on Lopressor 50mg BID (10) GERD (gastroesophageal reflux disease): Previous GI bleed, seems to have resolved. Patient is not anemic on presentation Continue PPI as ordered, patient is on Dexilant which will be changed to Protonix while inpatient (11) Hyperlipidemia: Continue Crestor 10 mg nightly or pharmacy equivalent while inpatient (12) DVT (deep venous thrombosis): Eliquis as ordered (13) Elevated troponin I level: demand ischemia from afib with RVR no further work up, no chest pain/pressure echo with preserved EF and no wall motion changes checked troponin twice with the syncopal episode, 0.02 last night and 0.02 this morning (14) SARS-CoV-2 positive: had full vaccine back in January no dexamethasone, no evidence that she has viral pneumonia repeat CXR shows no infiltrates as well the diarrhea could be due to COVID? treating with Imodium and Questran Admission and Anticipated Discharge Date Admission Date: April 10, 2021 Subjective pt feels weak and tired, she has had some variable heart rate control and will reduce digoxin and check dose in am ,will also check am cortisol. Review of Systems Review of Systems: Mild to moderate distress and fatigue no headache, blurry or double vision no speech or swallowing issues no chest pain, pressure or palpitations no shortness of breath, cough or wheezes no abdominal pain, nausea or vomiting, diarrhea or constipation no dysuria, hematuria or frequency no focal joint pain or swelling no back pain, CVA tenderness or radicular pain no bruising, bleeding or rashes no focal signs of weakness or numbness or altered sensation complaints of depression not ready for antidepressant. Physical Exam Physical Exam: The patient appeared fatigued and depressed Vital signs as documented. Head exam is normocephalic atraumatic Neck is without JVD, thyromegaly, or carotid bruits. Lungs are clear to auscultation, no focal loss of breath sounds Cardiac exam, Rhythm is regular.. No murmurs, rubs or gallops. Abdominal exam reveals normal bowel sounds, soft non tender, no masses Extremities are nonedematous and both pedal pulses are present Neurologic exam is alert and oriented, no focal loss of strength or sensation Skin is without bruises or rashes Psychologically is with concerns for depression Results & Data Results & Data ([facility]) Vital Signs (Past 12 Hours) Vital Signs Temp Pulse Pulse Resp BP Pulse Ox 04/18/21 12:38 97.3 F L 80 18 115/52 L 95 04/18/21 10:43 78 111/59 L 04/18/21 10:42 65 120/68 04/18/21 07:37 98.2 F 86 18 121/62 94 04/18/21 07:04 78 04/18/21 04:55 75 16 147/86 H 97 PG Care Time/CCT Total # of Minutes Spent Total Time Spent with Patient: Total time spent is greater than 50% in coordination of care (as documented) at patient's floor/unit and/or counseling patient: Coding Level of Care Code 74136 Subseq Hosp Care Lvl 3 Diagnoses Generalized weakness R53.1 Diarrhea R19.7 Atrial fibrillation with rapid ventricular response I48.91 JULIANN (acute kidney injury) N17.9 Syncope and collapse R55 Hypomagnesemia E83.42 Hypokalemia E87.6 UTI (urinary tract infection) N39.0 Hypertension I10 Hypertension type: essential hypertension GERD (gastroesophageal reflux disease) K21.9 Hyperlipidemia E78.5 Hyperlipidemia type: unspecified DVT (deep venous thrombosis) I82.409 Elevated troponin I level R77.8 SARS-CoV-2 positive U07.1 (1) Hypertension Hypertension type: essential hypertension Qualified Code(s): I10 - Essential (primary) hypertension (2) Hyperlipidemia Hyperlipidemia type: unspecified Qualified Code(s): E78.5 - Hyperlipidemia, unspecified
[2021-04-18] MEDS ORDERED: DIGOXIN 0.125 MG TAB PO SCH (16:00)
[2021-04-18] MEDS: DIGOXIN 0.125 MG TAB PO SCH (16:58)
[2021-04-18] MEDS: PREGABALIN 75 MG CAP PO SCH (20:10)
[2021-04-18] MEDS: PANTOprazole 40 MG TAB PO SCH (20:11)
[2021-04-18] MEDS: ROSUVASTATIN CALCIUM 10 MG TAB PO SCH (20:12)
[2021-04-18] MEDS: CIPROFLOXACIN 500 MG TAB PO SCH (20:12)
[2021-04-18] MEDS: VENLAFAXINE HCL 37.5 MG TAB PO SCH (20:13)
[2021-04-18] MEDS ORDERED: ONDANSETRON INJ 2 MG/ML 2 ML VIAL IV ONE (21:23)
[2021-04-18] MEDS: PROMETHAZINE HCL 6.25 MG in SODIUM CHLORIDE 0.9% 50 ML IV PRN (21:40)
--- NOTE | 2021-04-19 07:59 | Hospitalist Progress Note ---
Date of Service April 19, 2021 Assessment & Plan (1) Generalized weakness: neurology consult ->most likely due to current COVID infection and hip fracture s/p surgery with associated deconditioning. Has never been formally diagnosed with myasthenia gravis and recent workup last year was not c/w MG. - would obtain outpatient EMG at [facility] [place] with consideration of single fiber EMG if this is normal to completely rule out underlying MG - continue supportive care, including speech evaluation for safest route for nutrition at this time - will likely benefit from rehab on discharge to help re-gain strength - for neurology follow up, recommend that she go to [facility] [place] neuromuscular clinic as they can help her get single fiber EMG if needed will continue to treat afib, UTI, colitis and get PT/OT to work with her she has mentioned going home, will evaluate need for her ability for independence We did discuss her depression and its impact on her feeling of weakness, she admits that this is a real issue for her. She is in agreement to try additional medicines to help her depression was started on effexor low dose 04/18 oveall at this time her Dysthymia is her biggest issue (2) Diarrhea: C diff negative, stool culture negative, improved with antibiotics CT abd/pelvis on 04/16 with proctocolitis, non specific will try treating with Cipro/Flagyl po to look for improvement add Imodium PRN and Questran , not eating much (3) Atrial fibrillation with rapid ventricular response: Patient with no previous history of atrial fibrillation, anticoagulated for DVT prior to this admission changed Bystolic to Lopressor 50mg BID initially on Cardizem drip and amiodarone drip, now both are stopped did not convert to NSR as cardiology had hoped Patient is already anticoagulated with Eliquis 5 mg every 12 hours Echo with EF of 55%, moderate mitral regurgitation now rates are well controlled with Lopressor 50mg BID and Digoxin 125mcg every daily, checked dig level and was appropriate, Cardiology has supported daily digoxin despite some lower heart rates. (4) JULIANN (acute kidney injury): likely from poor oral intake for a few days, also states that they eat nothing but junk food Cr up to 1.4 two days ago, now down to 0.96 continue gentle hydration with NSS at 50cc/hr, until appetite is improved she did try orange ice today (5) Syncope and collapse: happened when she was standing up, likely due to low volume, afib, orthostatic changes? covid has been associated with some orthostasis in other pts will give IV fluids replace electrolytes (K and Mg normal now) PT/OT evaluations, keep on monitor no further episodes but she has not been out of bed since that time either (6) Hypomagnesemia: resolved after replacement (7) Hypokalemia: replete (8) UTI (urinary tract infection): 30K Klebsiella on initial culture did not treat initially due to no symptoms now with incontinence, weakness and had syncope got three days of Rocephin due to colitis on CT will change to Cipro/flagyl which will also cover the urine (9) Hypertension: BP stable on Lopressor 50mg BID (10) GERD (gastroesophageal reflux disease): Previous GI bleed, seems to have resolved. Patient is not anemic on presentation Continue PPI as ordered, patient is on Dexilant which will be changed to Protonix while inpatient (11) Hyperlipidemia: Continue Crestor 10 mg nightly or pharmacy equivalent while inpatient (12) DVT (deep venous thrombosis): Eliquis as ordered (13) Elevated troponin I level: demand ischemia from afib with RVR no further work up, no chest pain/pressure echo with preserved EF and no wall motion changes checked troponin twice with the syncopal episode, 0.02 last night and 0.02 this morning (14) SARS-CoV-2 positive: had full vaccine back in January no dexamethasone, no evidence that she has viral pneumonia repeat CXR shows no infiltrates as well the diarrhea could be due to COVID? treating with Imodium and Questran covid + 04/10, should come off isolation 04/21 will look toward infection control to validate Admission and Anticipated Discharge Date Admission Date: April 10, 2021 Subjective this pt continues with an intermittent steve course not wanting to eat and at times feeling nausea, did vomit after orange ice 04/18, none since, not sure if from covid colitis Review of Systems Review of Systems: Mild to moderate distress and fatigue no headache, blurry or double vision no speech or swallowing issues no chest pain, pressure or palpitations no shortness of breath, cough or wheezes no abdominal pain, nausea or vomiting, diarrhea or constipation no dysuria, hematuria or frequency no focal joint pain or swelling no back pain, CVA tenderness or radicular pain no bruising, bleeding or rashes no focal signs of weakness or numbness or altered sensation complaints of depression not ready for antidepressant. Physical Exam Physical Exam: The patient appeared fatigued and depressed Vital signs as documented. Head exam is normocephalic atraumatic Neck is without JVD, thyromegaly, or carotid bruits. Lungs are clear to auscultation, no focal loss of breath sounds Cardiac exam, Rhythm is regular.. No murmurs, rubs or gallops. Abdominal exam reveals normal bowel sounds, soft non tender, no masses Extremities are nonedematous and both pedal pulses are present Neurologic exam is alert and oriented, no focal loss of strength or sensation Skin is without bruises or rashes Psychologically is with concerns for depression Results & Data Results & Data ([facility]) Vital Signs (Past 12 Hours) Vital Signs Temp Pulse Pulse Resp BP Pulse Ox Pulse Ox 04/19/21 07:51 84 04/19/21 07:38 97.7 F 77 20 148/64 H 98 04/19/21 04:10 97.9 F 75 16 139/81 95 04/18/21 23:54 98.1 F 64 20 116/59 L 95 04/18/21 22:20 58 L 04/18/21 22:03 124/58 L 04/18/21 21:58 98.1 F 71 18 96/52 L 96 04/18/21 20:00 98.1 F 77 18 165/84 H 97 97 PG Care Time/CCT Total # of Minutes Spent Total Time Spent with Patient: Total time spent is greater than 50% in coordination of care (as documented) at patient's floor/unit and/or counseling patient: Coding Level of Care Code 66346 Subseq Hosp Care Lvl 2 Diagnoses Generalized weakness R53.1 Diarrhea R19.7 Atrial fibrillation with rapid ventricular response I48.91 JULIANN (acute kidney injury) N17.9 Syncope and collapse R55 Hypomagnesemia E83.42 Hypokalemia E87.6 UTI (urinary tract infection) N39.0 Hypertension I10 Hypertension type: essential hypertension GERD (gastroesophageal reflux disease) K21.9 Hyperlipidemia E78.5 Hyperlipidemia type: unspecified DVT (deep venous thrombosis) I82.409 Elevated troponin I level R77.8 SARS-CoV-2 positive U07.1 (1) Hyperlipidemia Hyperlipidemia type: unspecified Qualified Code(s): E78.5 - Hyperlipidemia, unspecified (2) Hypertension Hypertension type: essential hypertension Qualified Code(s): I10 - Essential (primary) hypertension
[2021-04-19] MEDS: FERROUS GLUCONATE 324 MG TAB PO SCH ×2 (09:04→16:50)
[2021-04-19] MEDS: METOPROLOL TARTRATE 50 MG TAB PO SCH ×2 (09:04→19:38)
[2021-04-19] MEDS: ROFLUMILAST 500 MCG TAB PO SCH (09:04)
[2021-04-19] MEDS: CYANOCOBALAMIN (VITAMIN B-12) 2,500 MCG TAB.SUBL SL SCH (09:04)
[2021-04-19] MEDS: ASPIRIN 81 MG ECTAB PO SCH ×2 (09:04→20:46)
[2021-04-19] MEDS: CHOLECALCIFEROL 1,000 UNITS 25 MCG TAB PO SCH (09:04)
[2021-04-19] MEDS: lamoTRIgine 100 MG TAB PO SCH (09:05)
[2021-04-19] MEDS: CIPROFLOXACIN 500 MG TAB PO SCH ×2 (09:06→20:46)
[2021-04-19] MEDS: APIXABAN 5 MG TABLET PO SCH ×2 (09:06→20:45)
[2021-04-19] MEDS: VENLAFAXINE HCL 37.5 MG TAB PO SCH ×2 (09:06→20:46)
[2021-04-19] MEDS: metroNIDAZOLE 500 MG TAB PO SCH ×3 (09:06→20:46)
[2021-04-19] MEDS: SODIUM CHLORIDE 0.9% 1000ML 1,000 ML IV SCH (09:08)
[2021-04-19] MEDS: ONDANSETRON INJ 2 MG/ML 2 ML VIAL IV PRN ×2 (09:59→19:25)
[2021-04-19] MEDS: LOPERAMIDE HCL 2 MG CAP PO PRN ×2 (10:04→17:17)
[2021-04-19] MEDS: DIGOXIN 0.125 MG TAB PO SCH (16:50)
[2021-04-19] MEDS: PROMETHAZINE HCL 6.25 MG in SODIUM CHLORIDE 0.9% 50 ML IV PRN (20:40)
[2021-04-19] MEDS: PANTOprazole 40 MG TAB PO SCH (20:46)
[2021-04-19] MEDS: ROSUVASTATIN CALCIUM 10 MG TAB PO SCH (20:46)
[2021-04-19] MEDS: PREGABALIN 75 MG CAP PO SCH (20:46)
[2021-04-19] MEDS ORDERED: ONDANSETRON INJ 2 MG/ML 2 ML VIAL IV ONE (21:20)
[2021-04-20] MEDS: LOPERAMIDE HCL 2 MG CAP PO PRN ×2 (01:35→10:53)
[2021-04-20] MEDS: SODIUM CHLORIDE 0.9% 1000ML 1,000 ML IV SCH (03:42)
[2021-04-20 07:34] LABS: BUN Creatinine Ratio 6.2 (10-20); Calcium 7.6 mg/dl (8.5-10.1); Creatinine Clr Calc Pharmacy 54.6 ml/min; Est GFR (African American) 85.7 ml/min; Magnesium 1.8 mg/dl (1.8-2.4); Potassium 3.5 mmol/L (3.5-5.1)
[2021-04-20] MEDS: metroNIDAZOLE 500 MG TAB PO SCH ×3 (08:58→21:48)
[2021-04-20] MEDS: lamoTRIgine 100 MG TAB PO SCH (08:59)
[2021-04-20] MEDS: METOPROLOL TARTRATE 50 MG TAB PO SCH ×2 (08:59→21:48)
[2021-04-20] MEDS: VENLAFAXINE HCL 37.5 MG TAB PO SCH ×2 (09:00→21:48)
[2021-04-20] MEDS: FERROUS GLUCONATE 324 MG TAB PO SCH ×2 (09:00→17:22)
[2021-04-20] MEDS: CHOLECALCIFEROL 1,000 UNITS 25 MCG TAB PO SCH (09:00)
[2021-04-20] MEDS: ASPIRIN 81 MG ECTAB PO SCH ×2 (09:00→21:47)
[2021-04-20] MEDS: APIXABAN 5 MG TABLET PO SCH ×2 (09:01→21:46)
[2021-04-20] MEDS: CIPROFLOXACIN 500 MG TAB PO SCH ×2 (09:01→21:47)
[2021-04-20] MEDS: ROFLUMILAST 500 MCG TAB PO SCH (09:01)
[2021-04-20] MEDS: CYANOCOBALAMIN (VITAMIN B-12) 2,500 MCG TAB.SUBL SL SCH (09:01)
[2021-04-20] MEDS: DIGOXIN 0.125 MG TAB PO SCH (13:35)
--- NOTE | 2021-04-20 17:14 | Hospitalist Progress Note ---
Date of Service April 20, 2021 Assessment & Plan (1) Generalized weakness: neurology consult ->most likely due to current COVID infection and hip fracture s/p surgery with associated deconditioning. Has never been formally diagnosed with myasthenia gravis and recent workup last year was not c/w MG. - would obtain outpatient [place] [facility] with consideration of single fiber EMG if this is normal to completely rule out underlying MG - continue supportive care, including speech evaluation for safest route for nutrition at this time - will likely benefit from rehab on discharge to help re-gain strength - for neurology follow up, recommend that she go to [facility] [place] [place] as they can help her get single fiber EMG if needed will continue to treat afib, UTI, colitis and get PT/OT to work with her she has mentioned going home, will evaluate need for her ability for independence We did discuss her depression and its impact on her feeling of weakness, she admits that this is a real issue for her. We have started on effexor low dose 04/18 although this medication works fast is likely just beginning to be a point where we might notice some difference. On 04/20 she did say she felt slightly better overall at this time her Dysthymia is her biggest issue (2) Diarrhea: C diff negative, stool culture negative, improved with antibiotics CT abd/pelvis on 04/16 with proctocolitis, non specific will try treating with Cipro/Flagyl po to look for improvement add Imodium PRN and Questran , not eating much continue to encourage her (3) Atrial fibrillation with rapid ventricular response: Patient with no previous history of atrial fibrillation, anticoagulated for DVT prior to this admission changed Bystolic to Lopressor 50mg BID continues to have good rate control with this post digoxin initially on Cardizem drip and amiodarone drip, now both are stopped did not convert to NSR as cardiology had hoped Patient is already anticoagulated with Eliquis 5 mg every 12 hours Echo with EF of 55%, moderate mitral regurgitation now rates are well controlled with Lopressor 50mg BID and Digoxin 125mcg every daily, checked dig level and was appropriate, Cardiology has supported daily digoxin despite some lower heart rates. (4) JULIANN (acute kidney injury): likely from poor oral intake for a few days, also states that they eat nothing but junk food Cr up to 1.4 two days ago, now down to 0.96 (5) Syncope and collapse: happened when she was standing up, likely due to low volume, afib, orthostatic changes? covid has been associated with some orthostasis in other pts will give IV fluids replace electrolytes (K and Mg normal now) PT/OT evaluations, keep on monitor no further episodes but she has not been out of bed since that time either (6) Hypomagnesemia: resolved after replacement (7) Hypokalemia: replete (8) UTI (urinary tract infection): 30K Klebsiella on initial culture did not treat initially due to no symptoms now with incontinence, weakness and had syncope got three days of Rocephin due to colitis on CT will change to Cipro/flagyl which will also cover the urine (9) Hypertension: BP stable on Lopressor 50mg BID (10) GERD (gastroesophageal reflux disease): Previous GI bleed, seems to have resolved. Patient is not anemic on presentation Continue PPI as ordered, patient is on Dexilant which will be changed to Protonix while inpatient (11) Hyperlipidemia: Continue Crestor 10 mg nightly or pharmacy equivalent while inpatient (12) DVT (deep venous thrombosis): Eliquis as ordered (13) Elevated troponin I level: demand ischemia from afib with RVR no further work up, no chest pain/pressure echo with preserved EF and no wall motion changes checked troponin twice with the syncopal episode, 0.02 last night and 0.02 this morning (14) SARS-CoV-2 positive: had full vaccine back in January no dexamethasone, no evidence that she has viral pneumonia repeat CXR shows no infiltrates as well the diarrhea could be due to COVID improving/resolving with Imodium and Questran covid + 04/10, should come off isolation 04/21 will look toward infection control to validate Admission and Anticipated Discharge Date Admission Date: April 10, 2021 Subjective Patient says she feels somewhat better today she still not eating a lot of food. Her depression continues to be an issue she is dysthymic and does not want any bed Review of Systems Review of Systems: Mild distress and fatigue no headache, blurry or double vision no speech or swallowing issues no chest pain, pressure or palpitations no shortness of breath, cough or wheezes no abdominal pain, nausea or vomiting, diarrhea or constipation no dysuria, hematuria or frequency no focal joint pain or swelling no back pain, CVA tenderness or radicular pain no bruising, bleeding or rashes no focal signs of weakness or numbness or altered sensation complaints of depression not ready for antidepressant. Psychiatric: + anxiety Physical Exam Physical Exam: The patient appeared fatigued and depressed slightly better than 1 day prior Vital signs as documented. Head exam is normocephalic atraumatic Neck is without JVD, thyromegaly, or carotid bruits. Lungs are clear to auscultation, no focal loss of breath sounds Cardiac exam, Rhythm is regular.. No murmurs, rubs or gallops. Abdominal exam reveals normal bowel sounds, soft non tender, no masses Extremities are nonedematous and both pedal pulses are present Neurologic exam is alert and oriented, no focal loss of strength or sensation Skin is without bruises or rashes Psychologically is with concerns for depression Results & Data Results & Data ([facility]) Vital Signs (Past 12 Hours) Vital Signs Temp Pulse Pulse Resp BP Pulse Ox 04/20/21 13:35 107 H 04/20/21 13:25 99.5 F 107 H 16 129/72 93 04/20/21 11:56 97.5 F L 53 L 20 146/63 H 96 04/20/21 08:09 97.9 F 74 18 157/56 H 95 PG Care Time/CCT Total # of Minutes Spent Total Time Spent with Patient: Total time spent is greater than 50% in coordination of care (as documented) at patient's floor/unit and/or counseling patient: Coding Level of Care Code 88418 Subseq Hosp Care Lvl 2 Diagnoses Generalized weakness R53.1 Diarrhea R19.7 Atrial fibrillation with rapid ventricular response I48.91 JULIANN (acute kidney injury) N17.9 Syncope and collapse R55 Hypomagnesemia E83.42 Hypokalemia E87.6 UTI (urinary tract infection) N39.0 Hypertension I10 Hypertension type: essential hypertension GERD (gastroesophageal reflux disease) K21.9 Hyperlipidemia E78.5 Hyperlipidemia type: unspecified DVT (deep venous thrombosis) I82.409 Elevated troponin I level R77.8 SARS-CoV-2 positive U07.1 (1) Hypertension Hypertension type: essential hypertension Qualified Code(s): I10 - Essential (primary) hypertension (2) Hyperlipidemia Hyperlipidemia type: unspecified Qualified Code(s): E78.5 - Hyperlipidemia, unspecified
[2021-04-20] MEDS: PREGABALIN 75 MG CAP PO SCH (21:46)
[2021-04-20] MEDS: ACETAMINOPHEN 325 MG TAB PO PRN (21:46)
[2021-04-20] MEDS: PANTOprazole 40 MG TAB PO SCH (21:47)
[2021-04-20] MEDS: ROSUVASTATIN CALCIUM 10 MG TAB PO SCH (21:48)
[2021-04-21] MEDS: CHOLECALCIFEROL 1,000 UNITS 25 MCG TAB PO SCH (08:49)
[2021-04-21] MEDS: FERROUS GLUCONATE 324 MG TAB PO SCH ×2 (08:49→17:30)
[2021-04-21] MEDS: ASPIRIN 81 MG ECTAB PO SCH ×2 (08:49→20:56)
[2021-04-21] MEDS: APIXABAN 5 MG TABLET PO SCH ×2 (08:49→20:56)
[2021-04-21] MEDS: METOPROLOL TARTRATE 50 MG TAB PO SCH (08:49)
[2021-04-21] MEDS: CIPROFLOXACIN 500 MG TAB PO SCH (08:49)
[2021-04-21] MEDS: CYANOCOBALAMIN (VITAMIN B-12) 2,500 MCG TAB.SUBL SL SCH (08:50)
[2021-04-21] MEDS: VENLAFAXINE HCL 37.5 MG TAB PO SCH ×2 (08:50→20:59)
[2021-04-21] MEDS: ROFLUMILAST 500 MCG TAB PO SCH (08:50)
[2021-04-21] MEDS: lamoTRIgine 100 MG TAB PO SCH (08:50)
[2021-04-21] MEDS ORDERED: ALPRAZolam 0.25 MG TABLET PO PRN (15:00)
[2021-04-21] MEDS: DIGOXIN 0.125 MG TAB PO SCH (15:36)
--- NOTE | 2021-04-21 18:38 | Hospitalist Progress Note ---
Date of Service April 21, 2021 Assessment & Plan (1) Generalized weakness: neurology consult ->most likely due to current COVID infection and hip fracture s/p surgery with associated deconditioning. Has never been formally diagnosed with myasthenia gravis and recent workup last year was not c/w MG. - would obtain outpatient EMG at [facility] with consideration of single fiber EMG if this is normal to completely rule out underlying MG - continue supportive care, including speech evaluation for safest route for nutrition at this time - will likely benefit from rehab on discharge to help re-gain strength - for neurology follow up, recommend that she go to [facility] neuromuscular clinic as they can help her get single fiber EMG if needed will continue to treat afib, UTI, colitis and get PT/OT to work with her she has mentioned going home, will evaluate need for her ability for independence We did discuss her depression and its impact on her feeling of weakness, she admits that this is a real issue for her. We have started on effexor low dose 04/18 although this medication works fast is likely just beginning to be a point where we might notice some difference. On 04/20 she did say she felt slightly better overall at this time her Dysthymia is her biggest issue (2) Diarrhea: C diff negative, stool culture negative, improved with antibiotics CT abd/pelvis on 04/16 with proctocolitis, non specific will try treating with Cipro/Flagyl po to look for improvement add Imodium PRN and Questran , not eating much continue to encourage her (3) Atrial fibrillation with rapid ventricular response: Patient with no previous history of atrial fibrillation, anticoagulated for DVT prior to this admission changed Bystolic to Lopressor 50mg BID has some bradycardia and a pause, will reduce metoprolol and continue digoxin initially on Cardizem drip and amiodarone drip, now both are stopped did not convert to NSR as cardiology had hoped Patient is already anticoagulated with Eliquis 5 mg every 12 hours Echo with EF of 55%, moderate mitral regurgitation now rates are well controlled with Lopressor 25mg BID and Digoxin 125mcg every daily, checked dig level and was appropriate, Cardiology has supported daily digoxin despite some lower heart rates. will change metoprolol (4) JULAINN (acute kidney injury): likely from poor oral intake for a few days, also states that they eat nothing but junk food Cr up to 1.4 two days ago, now down to 0.96 (5) Syncope and collapse: happened when she was standing up, likely due to low volume, afib, orthostatic changes? covid has been associated with some orthostasis in other pts will give IV fluids replace electrolytes (K and Mg normal now) PT/OT evaluations, keep on monitor no further episodes but she has not been out of bed since that time either (6) Hypomagnesemia: resolved after replacement (7) Hypokalemia: replete (8) UTI (urinary tract infection): 30K Klebsiella on initial culture did not treat initially due to no symptoms now with incontinence, weakness and had syncope got three days of Rocephin due to colitis on CT will change to Cipro/flagyl which will also cover the urine (9) Hypertension: BP stable on Lopressor 50mg BID (10) GERD (gastroesophageal reflux disease): Previous GI bleed, seems to have resolved. Patient is not anemic on presentation Continue PPI as ordered, patient is on Dexilant which will be changed to Protonix while inpatient (11) Hyperlipidemia: Continue Crestor 10 mg nightly or pharmacy equivalent while inpatient (12) DVT (deep venous thrombosis): Eliquis as ordered (13) Elevated troponin I level: demand ischemia from afib with RVR no further work up, no chest pain/pressure echo with preserved EF and no wall motion changes checked troponin twice with the syncopal episode, 0.02 last night and 0.02 this morning (14) SARS-CoV-2 positive: had full vaccine back in January no dexamethasone, no evidence that she has viral pneumonia repeat CXR shows no infiltrates as well the diarrhea could be due to COVID improving/resolving with Imodium and Questran covid + 04/10, should come off isolation 04/21 will look toward infection control to validate Admission and Anticipated Discharge Date Admission Date: April 10, 2021 Subjective Patient says she feels somewhat better today she is able to eat more food she did have some bradycardia and a pause today, spoke to cardiology and med changes advised. Her depression continues to be an issue she is dysthymic and does not want any bed Review of Systems Review of Systems: Mild distress and fatigue no headache, blurry or double vision no speech or swallowing issues no chest pain, pressure or palpitations no shortness of breath, cough or wheezes no abdominal pain, nausea or vomiting, diarrhea or constipation no dysuria, hematuria or frequency no focal joint pain or swelling no back pain, CVA tenderness or radicular pain no bruising, bleeding or rashes no focal signs of weakness or numbness or altered sensation complaints of depression not ready for antidepressant. Psychiatric: + anxiety Physical Exam Physical Exam: The patient appeared fatigued and depressed slightly better than 1 day prior Vital signs as documented. Head exam is normocephalic atraumatic Neck is without JVD, thyromegaly, or carotid bruits. Lungs are clear to auscultation, no focal loss of breath sounds Cardiac exam, Rhythm is regular.. No murmurs, rubs or gallops. Abdominal exam reveals normal bowel sounds, soft non tender, no masses Extremities are nonedematous and both pedal pulses are present Neurologic exam is alert and oriented, no focal loss of strength or sensation Skin is without bruises or rashes Psychologically is with concerns for depression Results & Data Results & Data ([facility]) Vital Signs (Past 12 Hours) Vital Signs Temp Pulse Pulse Resp BP Pulse Ox 04/21/21 17:15 69 04/21/21 15:36 65 04/21/21 14:23 98.1 F 66 17 108/52 L 95 04/21/21 12:03 98.2 F 58 L 20 131/48 L 97 04/21/21 10:16 97.9 F 42 L 16 104/58 L 98 04/21/21 08:55 97.7 F 79 16 108/52 L 95 04/21/21 07:53 59 L PG Care Time/CCT Total # of Minutes Spent Total Time Spent with Patient: Total time spent is greater than 50% in coordination of care (as documented) at patient's floor/unit and/or counseling patient: Coding Level of Care Code 04303 Subseq Hosp Care Lvl 3 Diagnoses Generalized weakness R53.1 Diarrhea R19.7 Atrial fibrillation with rapid ventricular response I48.91 JULIANN (acute kidney injury) N17.9 Syncope and collapse R55 Hypomagnesemia E83.42 Hypokalemia E87.6 UTI (urinary tract infection) N39.0 Hypertension I10 Hypertension type: essential hypertension GERD (gastroesophageal reflux disease) K21.9 Hyperlipidemia E78.5 Hyperlipidemia type: unspecified DVT (deep venous thrombosis) I82.409 Elevated troponin I level R77.8 SARS-CoV-2 positive U07.1 (1) Hypertension Hypertension type: essential hypertension Qualified Code(s): I10 - Essential (primary) hypertension (2) Hyperlipidemia Hyperlipidemia type: unspecified Qualified Code(s): E78.5 - Hyperlipidemia, unspecified
[2021-04-21] MEDS: PSYLLIUM 58.6% POWDER PACKET PO SCH (19:34)
[2021-04-21] MEDS: METOPROLOL TARTRATE 25 MG TAB PO SCH (20:57)
[2021-04-21] MEDS: PANTOprazole 40 MG TAB PO SCH (20:58)
[2021-04-21] MEDS: PREGABALIN 75 MG CAP PO SCH (20:58)
[2021-04-21] MEDS: ROSUVASTATIN CALCIUM 10 MG TAB PO SCH (20:59)
[2021-04-21] MEDS: ONDANSETRON INJ 2 MG/ML 2 ML VIAL IV PRN (22:10)
[2021-04-22] MEDS: FERROUS GLUCONATE 324 MG TAB PO SCH ×2 (08:35→16:54)
[2021-04-22] MEDS: VENLAFAXINE HCL 37.5 MG TAB PO SCH ×2 (08:36→21:50)
[2021-04-22] MEDS: CYANOCOBALAMIN (VITAMIN B-12) 2,500 MCG TAB.SUBL SL SCH (08:36)
[2021-04-22] MEDS: METOPROLOL TARTRATE 25 MG TAB PO SCH ×2 (08:36→21:50)
[2021-04-22] MEDS: CHOLECALCIFEROL 1,000 UNITS 25 MCG TAB PO SCH (08:37)
[2021-04-22] MEDS: APIXABAN 5 MG TABLET PO SCH ×2 (08:37→21:50)
[2021-04-22] MEDS: ASPIRIN 81 MG ECTAB PO SCH ×2 (08:37→21:48)
[2021-04-22] MEDS: lamoTRIgine 100 MG TAB PO SCH (08:38)
[2021-04-22] MEDS: PSYLLIUM 58.6% POWDER PACKET PO SCH (08:58)
[2021-04-22] MEDS: ROFLUMILAST 500 MCG TAB PO SCH (10:29)
[2021-04-22] MEDS ORDERED: DIGOXIN 0.125 MG TAB PO SCH (16:00)
[2021-04-22] MEDS: DIGOXIN 0.125 MG TAB PO SCH (16:54)
--- NOTE | 2021-04-22 19:15 | Hospitalist Progress Note ---
Date of Service April 22, 2021 Assessment & Plan (1) Generalized weakness: neurology consult ->most likely due to current COVID infection and hip fracture s/p surgery with associated deconditioning. Has never been formally diagnosed with myasthenia gravis and recent workup last year was not c/w MG. - would obtain outpatient EMG at [facility] [place] with consideration of single fiber EMG if this is normal to completely rule out underlying MG - continue supportive care, including speech evaluation for safest route for nutrition at this time - will likely benefit from rehab on discharge to help re-gain strength - for neurology follow up, recommend that she go to [facility] [place] neuromuscular clinic as they can help her get single fiber EMG if needed will continue to treat afib, UTI, colitis and get PT/OT to work with her she has mentioned going home, will evaluate need for her ability for independence We did discuss her depression and its impact on her feeling of weakness, she admits that this is a real issue for her. We have started on effexor low dose 04/18 although this medication works fast is likely just beginning to be a point where we might notice some difference. On 04/20 she did say she felt slightly better overall at this time her Dysthymia is her biggest issue (2) Diarrhea: C diff negative, stool culture negative, improved with antibiotics CT abd/pelvis on 04/16 with proctocolitis, non specific will try treating with Cipro/Flagyl po to look for improvement add Imodium PRN and Questran , not eating much continue to encourage her (3) Atrial fibrillation with rapid ventricular response: Patient with no previous history of atrial fibrillation, anticoagulated for DVT prior to this admission changed Bystolic to Lopressor 50mg BID has some bradycardia and a pause, will reduce metoprolol and continue digoxin initially on Cardizem drip and amiodarone drip, now both are stopped did not convert to NSR as cardiology had hoped Patient is already anticoagulated with Eliquis 5 mg every 12 hours Echo with EF of 55%, moderate mitral regurgitation now rates are well controlled with Lopressor 25mg BID and Digoxin 125mcg every daily, checked dig level and was appropriate, Cardiology has supported daily digoxin despite some lower heart rates. will change metoprolol (4) JULIANN (acute kidney injury): likely from poor oral intake for a few days, also states that they eat nothing but junk food Cr up to 1.4 two days ago, now down to 0.96 (5) Syncope and collapse: happened when she was standing up, likely due to low volume, afib, orthostatic changes? covid has been associated with some orthostasis in other pts will give IV fluids replace electrolytes (K and Mg normal now) PT/OT evaluations, keep on monitor no further episodes but she has not been out of bed since that time either (6) Hypomagnesemia: resolved after replacement (7) Hypokalemia: replete (8) UTI (urinary tract infection): 30K Klebsiella on initial culture did not treat initially due to no symptoms now with incontinence, weakness and had syncope got three days of Rocephin due to colitis on CT will change to Cipro/flagyl which will also cover the urine (9) Hypertension: BP stable on Lopressor 50mg BID (10) GERD (gastroesophageal reflux disease): Previous GI bleed, seems to have resolved. Patient is not anemic on presentation Continue PPI as ordered, patient is on Dexilant which will be changed to Protonix while inpatient (11) Hyperlipidemia: Continue Crestor 10 mg nightly or pharmacy equivalent while inpatient (12) DVT (deep venous thrombosis): Eliquis as ordered (13) Elevated troponin I level: demand ischemia from afib with RVR no further work up, no chest pain/pressure echo with preserved EF and no wall motion changes checked troponin twice with the syncopal episode, 0.02 last night and 0.02 this morning (14) SARS-CoV-2 positive: had full vaccine back in January no dexamethasone, no evidence that she has viral pneumonia repeat CXR shows no infiltrates as well the diarrhea could be due to COVID improving/resolving with Imodium and Questran covid + 04/10, should come off isolation 04/21 will look toward infection control to validate Admission and Anticipated Discharge Date Admission Date: April 10, 2021 Subjective No additional pauses were noted by nursing staff. Patient did not sleep well last night she had the staff was in frequently to check her vital signs. Subsequently we will try to avoid it tonight and try melatonin. Diarrhea is still a large component we will schedule her cholestyramine and Imodium at this point, she is refusing Metamucil at this point Subsequently the patient feels her depression medications are in good order at this time however her depression continues to be an issue she is dysthymic and does not want any bed Review of Systems Review of Systems: Mild distress and fatigue no headache, blurry or double vision no speech or swallowing issues no chest pain, pressure or palpitations no shortness of breath, cough or wheezes no abdominal pain, nausea or vomiting, diarrhea or constipation no dysuria, hematuria or frequency no focal joint pain or swelling no back pain, CVA tenderness or radicular pain no bruising, bleeding or rashes no focal signs of weakness or numbness or altered sensation complaints of depression not ready for antidepressant. Physical Exam Physical Exam: The patient appeared fatigued and depressed slightly better than 1 day prior Vital signs as documented. Head exam is normocephalic atraumatic Neck is without JVD, thyromegaly, or carotid bruits. Lungs are clear to auscultation, no focal loss of breath sounds Cardiac exam, Rhythm is regular.. No murmurs, rubs or gallops. Abdominal exam reveals normal bowel sounds, soft non tender, no masses Extremities are nonedematous and both pedal pulses are present Neurologic exam is alert and oriented, no focal loss of strength or sensation Skin is without bruises or rashes Psychologically is with concerns for depression Results & Data Results & Data ([facility]) Vital Signs (Past 12 Hours) Vital Signs Temp Pulse Resp BP Pulse Ox 04/22/21 14:23 97.5 F L 69 20 138/74 96 04/22/21 12:08 98.1 F 64 20 135/73 98 04/22/21 08:44 98.1 F 89 19 164/51 H 94 PG Care Time/CCT Total # of Minutes Spent Total Time Spent with Patient: Total time spent is greater than 50% in coordination of care (as documented) at patient's floor/unit and/or counseling patient: Coding Level of Care Code 65698 Subseq Hosp Care Lvl 2 Diagnoses Generalized weakness R53.1 Diarrhea R19.7 Atrial fibrillation with rapid ventricular response I48.91 JULIANN (acute kidney injury) N17.9 Syncope and collapse R55 Hypomagnesemia E83.42 Hypokalemia E87.6 UTI (urinary tract infection) N39.0 Hypertension I10 Hypertension type: essential hypertension GERD (gastroesophageal reflux disease) K21.9 Hyperlipidemia E78.5 Hyperlipidemia type: unspecified DVT (deep venous thrombosis) I82.409 Elevated troponin I level R77.8 SARS-CoV-2 positive U07.1 (1) Hypertension Hypertension type: essential hypertension Qualified Code(s): I10 - Essential (primary) hypertension (2) Hyperlipidemia Hyperlipidemia type: unspecified Qualified Code(s): E78.5 - Hyperlipidemia, unspecified
[2021-04-22] MEDS: ROSUVASTATIN CALCIUM 10 MG TAB PO SCH (21:49)
[2021-04-22] MEDS: PANTOprazole 40 MG TAB PO SCH (21:50)
[2021-04-22] MEDS: PREGABALIN 75 MG CAP PO SCH (21:50)
[2021-04-22] MEDS: MELATONIN 3 MG TAB PO SCH (21:51)
[2021-04-22] MEDS: oxyCODONE HCL IR 5 MG TAB (IMMEDIATE RELEASE) PO PRN (21:51)
[2021-04-22] MEDS: LOPERAMIDE HCL 2 MG CAP PO SCH (21:51)
[2021-04-22] MEDS: CHOLESTYRAMINE LIGHT 4 GM PKT PO SCH (21:52)
[2021-04-23] MEDS: METOPROLOL TARTRATE 25 MG TAB PO SCH ×2 (08:37→20:13)
[2021-04-23] MEDS: ROFLUMILAST 500 MCG TAB PO SCH (08:37)
[2021-04-23] MEDS: ASPIRIN 81 MG ECTAB PO SCH ×2 (08:38→20:13)
[2021-04-23] MEDS: FERROUS GLUCONATE 324 MG TAB PO SCH ×2 (08:38→17:18)
[2021-04-23] MEDS: APIXABAN 5 MG TABLET PO SCH ×2 (08:39→20:13)
[2021-04-23] MEDS: VENLAFAXINE HCL 37.5 MG TAB PO SCH ×2 (09:42→20:13)
[2021-04-23] MEDS: CYANOCOBALAMIN (VITAMIN B-12) 2,500 MCG TAB.SUBL SL SCH (09:43)
[2021-04-23] MEDS: lamoTRIgine 100 MG TAB PO SCH (09:43)
[2021-04-23] MEDS: CHOLECALCIFEROL 1,000 UNITS 25 MCG TAB PO SCH (09:44)
[2021-04-23] MEDS: PSYLLIUM 58.6% POWDER PACKET PO SCH (09:57)
[2021-04-23] MEDS: CHOLESTYRAMINE LIGHT 4 GM PKT PO SCH ×2 (11:01→20:14)
--- NOTE | 2021-04-23 16:58 | Hospitalist Progress Note ---
Date of Service April 23, 2021 Assessment & Plan (1) Generalized weakness: neurology consult ->most likely due to current COVID infection and hip fracture s/p surgery with associated deconditioning. Has never been formally diagnosed with myasthenia gravis and recent workup last year was not c/w MG. - would obtain outpatient EMG at [facility] [place] with consideration of single fiber EMG if this is normal to completely rule out underlying MG - continue supportive care, including speech evaluation for safest route for nutrition at this time - will likely benefit from rehab on discharge to help re-gain strength - for neurology follow up, recommend that she go to [facility] [place] neuromuscular clinic as they can help her get single fiber EMG if needed will continue to treat afib, UTI, colitis and get PT/OT to work with her she has mentioned going home, will evaluate need for her ability for independence We did discuss her depression and its impact on her feeling of weakness, she admits that this is a real issue for her. We have started on effexor low dose 04/18 although this medication works fast is likely just beginning to be a point where we might notice some difference. On 04/20 she did say she felt slightly better overall at this time her Dysthymia is her biggest issue has some slight improvement with Effexor (2) Diarrhea: C diff negative, stool culture negative, improved with antibiotics CT abd/pelvis on 04/16 with proctocolitis, non specific will try treating with Cipro/Flagyl po to look for improvement add Imodium PRN and Questran continue to encourage her to eat (3) Atrial fibrillation with rapid ventricular response: Patient with no previous history of atrial fibrillation, anticoagulated for DVT prior to this admission changed Bystolic to Lopressor 50mg BID has some bradycardia and a pause, will reduce metoprolol to 25 mg bid and continue digoxin initially on Cardizem drip and amiodarone drip, now both are stopped did not convert to NSR as cardiology had hoped Patient is already anticoagulated with Eliquis 5 mg every 12 hours Echo with EF of 55%, moderate mitral regurgitation now rates are well controlled with Lopressor 25mg BID and Digoxin 125mcg every daily, checked dig level and was appropriate, Cardiology has supported daily digoxin despite some lower heart rates. will change metoprolol (4) JULIANN (acute kidney injury): likely from poor oral intake for a few days, also states that they eat nothing but junk food Cr up to 1.4 two days ago, now down (5) Syncope and collapse: happened when she was standing up, likely due to low volume, afib, orthostatic changes? covid has been associated with some orthostasis in other pts will give IV fluids replace electrolytes (K and Mg normal now) PT/OT evaluations, keep on monitor no further episodes but she has not been out of bed since that time either (6) Hypomagnesemia: resolved after replacement (7) Hypokalemia: replete (8) UTI (urinary tract infection): 30K Klebsiella on initial culture did not treat initially due to no symptoms now with incontinence, weakness and had syncope got three days of Rocephin due to colitis on CT will change to Cipro/flagyl which will also cover the urine (9) Hypertension: BP stable on Lopressor 50mg BID (10) GERD (gastroesophageal reflux disease): Previous GI bleed, seems to have resolved. Patient is not anemic on presentation Continue PPI as ordered, patient is on Dexilant which will be changed to Protonix while inpatient (11) Hyperlipidemia: Continue Crestor 10 mg nightly or pharmacy equivalent while inpatient (12) DVT (deep venous thrombosis): Eliquis as ordered (13) Elevated troponin I level: demand ischemia from afib with RVR no further work up, no chest pain/pressure echo with preserved EF and no wall motion changes checked troponin twice with the syncopal episode, 0.02 last night and 0.02 this morning (14) SARS-CoV-2 positive: had full vaccine back in January no dexamethasone, no evidence that she has viral pneumonia repeat CXR shows no infiltrates as well the diarrhea could be due to COVID improving/resolving with Imodium and Questran covid + 04/10, should come off isolation soon, infectious control is evaluating for relaxing airborne Admission and Anticipated Discharge Date Admission Date: April 10, 2021 Subjective No additional pauses were noted by nursing staff. Patient did sleep well last night with melatonin and reducing vital signs. Diarrhea is improving with scheduled cholestyramine and Imodium, she is refusing Metamucil at this point Subsequently the patient feels her depression medications are in good order at this time however her depression continues to be an issue she is dysthymic and does not want any bed Review of Systems Review of Systems: Mild distress and fatigue no headache, blurry or double vision no speech or swallowing issues no chest pain, pressure or palpitations no shortness of breath, cough or wheezes no abdominal pain, nausea or vomiting, diarrhea or constipation no dysuria, hematuria or frequency no focal joint pain or swelling no back pain, CVA tenderness or radicular pain no bruising, bleeding or rashes no focal signs of weakness or numbness or altered sensation complaints of depression not ready for antidepressant. Physical Exam Physical Exam: The patient appeared fatigued and depressed slightly better than 1 day prior Vital signs as documented. Head exam is normocephalic atraumatic Neck is without JVD, thyromegaly, or carotid bruits. Lungs are clear to auscultation, no focal loss of breath sounds Cardiac exam, Rhythm is regular.. No murmurs, rubs or gallops. Abdominal exam reveals normal bowel sounds, soft non tender, no masses Extremities are nonedematous and both pedal pulses are present Neurologic exam is alert and oriented, no focal loss of strength or sensation Skin is without bruises or rashes Psychologically is with concerns for depression Results & Data Results & Data ([facility]) Vital Signs (Past 12 Hours) Vital Signs Temp Pulse Resp BP Pulse Ox 04/23/21 15:27 98.4 F 70 20 151/61 H 93 PG Care Time/CCT Total # of Minutes Spent Total Time Spent with Patient: Total time spent is greater than 50% in coordination of care (as documented) at patient's floor/unit and/or counseling patient: Coding Level of Care Code 74322 Subseq Hosp Care Lvl 2 Diagnoses Generalized weakness R53.1 Diarrhea R19.7 Atrial fibrillation with rapid ventricular response I48.91 JULIANN (acute kidney injury) N17.9 Syncope and collapse R55 Hypomagnesemia E83.42 Hypokalemia E87.6 UTI (urinary tract infection) N39.0 Hypertension I10 Hypertension type: essential hypertension GERD (gastroesophageal reflux disease) K21.9 Hyperlipidemia E78.5 Hyperlipidemia type: unspecified DVT (deep venous thrombosis) I82.409 Elevated troponin I level R77.8 SARS-CoV-2 positive U07.1 (1) Hypertension Hypertension type: essential hypertension Qualified Code(s): I10 - Essential (primary) hypertension (2) Hyperlipidemia Hyperlipidemia type: unspecified Qualified Code(s): E78.5 - Hyperlipidemia, unspecified
[2021-04-23] MEDS: DIGOXIN 0.125 MG TAB PO SCH (17:18)
[2021-04-23] MEDS: ROSUVASTATIN CALCIUM 10 MG TAB PO SCH (20:13)
[2021-04-23] MEDS: MELATONIN 3 MG TAB PO SCH (20:13)
[2021-04-23] MEDS: PREGABALIN 75 MG CAP PO SCH (20:13)
[2021-04-23] MEDS: LOPERAMIDE HCL 2 MG CAP PO SCH (20:13)
[2021-04-23] MEDS: PANTOprazole 40 MG TAB PO SCH (20:13)
[2021-04-24] MEDS: VENLAFAXINE HCL 37.5 MG TAB PO SCH ×2 (08:44→20:28)
[2021-04-24] MEDS: ROFLUMILAST 500 MCG TAB PO SCH (08:44)
[2021-04-24] MEDS: lamoTRIgine 100 MG TAB PO SCH (08:44)
[2021-04-24] MEDS: ASPIRIN 81 MG ECTAB PO SCH ×2 (08:45→20:27)
[2021-04-24] MEDS: PSYLLIUM 58.6% POWDER PACKET PO SCH (08:46)
[2021-04-24] MEDS: FERROUS GLUCONATE 324 MG TAB PO SCH ×2 (08:46→17:34)
[2021-04-24] MEDS: CHOLESTYRAMINE LIGHT 4 GM PKT PO SCH ×2 (08:46→20:29)
[2021-04-24] MEDS: APIXABAN 5 MG TABLET PO SCH ×2 (08:46→20:28)
[2021-04-24] MEDS: METOPROLOL TARTRATE 25 MG TAB PO SCH ×2 (08:49→20:27)
[2021-04-24] MEDS: CYANOCOBALAMIN (VITAMIN B-12) 2,500 MCG TAB.SUBL SL SCH (08:49)
[2021-04-24] MEDS: CHOLECALCIFEROL 1,000 UNITS 25 MCG TAB PO SCH (08:49)
--- NOTE | 2021-04-24 14:33 | Hospitalist Progress Note ---
Date of Service April 24, 2021 Assessment & Plan (1) Generalized weakness: neurology consult ->most likely due to current COVID infection and hip fracture s/p surgery with associated deconditioning. Has never been formally diagnosed with myasthenia gravis and recent workup last year was not c/w MG. - would obtain outpatient EMG at [facility] with consideration of single fiber EMG if this is normal to completely rule out underlying MG - continue supportive care, including speech evaluation for safest route for nutrition at this time - will likely benefit from rehab on discharge to help re-gain strength - for neurology follow up, recommend that she go to [facility] neuromuscular clinic as they can help her get single fiber EMG if needed will continue to treat afib, UTI, colitis and get PT/OT to work with her prior attending discussed her depression and its impact on her feeling of weakness, she admits that this is a real issue for her. continue effexor low dose 04/18 although this medication works fast is likely just beginning to be a point where we might notice some difference. On 04/20 she did say she felt slightly better overall at this time her Dysthymia is her biggest issue has some slight improvement with Effexor hoping that appetite might improve as well, consider augmenting with Remeron if the Effexor does not improve things in a week or two (2) Diarrhea: C diff negative, stool culture negative, improved with antibiotics CT abd/pelvis on 04/16 with proctocolitis, non specific treated with Cipro/Flagyl po, course completed add Imodium PRN and Questran continue to encourage her to eat (3) Atrial fibrillation with rapid ventricular response: Patient with no previous history of atrial fibrillation, anticoagulated for DVT prior to this admission changed Bystolic to Lopressor 50mg BID has some bradycardia and a pause, will reduce metoprolol to 25 mg bid and continue digoxin initially on Cardizem drip and amiodarone drip, now both are stopped did not convert to NSR as cardiology had hoped Patient is already anticoagulated with Eliquis 5 mg every 12 hours Echo with EF of 55%, moderate mitral regurgitation now rates are well controlled with Lopressor 25mg BID and Digoxin 125mcg every day, checked dig level and was appropriate, Cardiology has supported daily digoxin despite some lower heart rates. (4) JULIANN (acute kidney injury): likely from poor oral intake for a few days, also states that they eat nothing but junk food Cr up to 1.4 two days ago, now down to normal (5) Syncope and collapse: happened when she was standing up, likely due to low volume, afib, orthostatic changes? covid has been associated with some orthostasis in other pts will give IV fluids replace electrolytes (K and Mg normal now) PT/OT evaluations, keep on monitor no further episodes plan for rehab at [facility] (6) Hypomagnesemia: resolved after replacement (7) Hypokalemia: replete (8) UTI (urinary tract infection): 30K Klebsiella on initial culture did not treat initially due to no symptoms now with incontinence, weakness and had syncope got three days of Rocephin due to colitis on CT will change to Cipro/flagyl which will also cover the urine course completed (9) Hypertension: BP stable on Lopressor 25mg BID (10) GERD (gastroesophageal reflux disease): Previous GI bleed, seems to have resolved. Patient is not anemic on presentation Continue PPI as ordered, patient is on Dexilant which will be changed to Protonix while inpatient (11) Hyperlipidemia: Continue Crestor 10 mg nightly or pharmacy equivalent while inpatient (12) DVT (deep venous thrombosis): Eliquis as ordered (13) Elevated troponin I level: demand ischemia from afib with RVR no further work up, no chest pain/pressure echo with preserved EF and no wall motion changes checked troponin twice with the syncopal episode, negative both times (14) SARS-CoV-2 positive: had full vaccine back in January no dexamethasone, no evidence that she has viral pneumonia repeat CXR shows no infiltrates as well the diarrhea could be due to COVID improving/resolving with Imodium and Questran covid + 04/10, discontinued isolation today, family can visit now Admission and Anticipated Discharge Date Admission Date: April 10, 2021 Subjective patient is still very weak, but was able to sit in chair for 4 hours and worked with therapy today she is planning on going to [facility] to apply for authorization she still has loose stools and little to no appetite, unclear why she continues to have loose stools labs are stable HR is stable on Digoxin and low dose Lopressor appreciate neurology recommendations for outpatient EMG testing, can do single fiber EMG testing at [place] Review of Systems Review of Systems: All systems reviewed & are unremarkable except as noted in Subjective Constitutional: + weakness; no fever and no fatigue Respiratory: no cough and no dyspnea Cardiovascular: no chest pain, no palpitations and no edema Gastrointestinal: + early satiety and + diarrhea/loose stools; no abdominal pain, no nausea, no vomiting, no constipation, no blood in stools and no melena Musculoskeletal: + muscle weakness (generalized, more in left leg) Physical Exam Constitutional: WD/WN, vitals as above no acute distress Neck: trachea midline, no thyromegaly Respiratory: normal respiratory effort, lungs clear to auscultation Cardiovascular: Rate/Rhythm: regular rate and + irregularly irregular Heart Sounds: normal S1 and normal S2; no murmur Vessels: normal peripheral pulses; no JVD Extremities: normal capillary refill; no edema Gastrointestinal (Abdomen): normal bowel sounds, soft, nontender, no hepatosplenomegaly Musculoskeletal: no cyanosis or clubbing, extremities motor strength 5/5 Head/Neck/Chest: normocephalic, head atraumatic and neck supple Extremities: extremities normal to inspection and + abnormal strength (diffuse weakness, most pronounced in left lower extremity); no cyanosis, no clubbing and no petechiae Skin: no rashes, warm and dry Neurologic: patellar DTR's 2+ bilat, sensation intact and PERRL, EOMI, acco mmodation nl, no face palsy, no dysarthria normal touch/pain/proprioception, CN's II-XI intact bilaterally, normal sensation to monofilament, moves all extremities and awake; no focal motor deficits Psychiatric: Orientation: alert, oriented x 3 and cooperative Affect: + anxious affect Lymphatic: no cervical or axillary lymphadenopathy Results & Data Results & Data ([facility]) Vital Signs (Past 12 Hours) Vital Signs Temp Pulse Resp BP Pulse Ox 04/24/21 07:00 36.7 C 82 18 146/72 H 94 04/24/21 03:56 36.8 C 71 18 132/58 L 94 Medications Administered Current Inpatient Medications Acetaminophen (Acetaminophen 325 Mg Tab) 650 mg PO Q4H PRN PRN Reason: Pain or Fever Stop: 05/10/21 20:56 Last Admin: 04/20/21 21:46 Dose: 650 mg Documented by: Albuterol (Albuterol Hfa 8 Gm Inhaler (Combivent Respimat P&T Subs)) 2 puffs INH Q6H PRN PRN Reason: Shortness Of Breath Stop: 05/10/21 21:12 Alprazolam (Alprazolam 0.25 Mg Tablet) 0.25 mg PO Q8H PRN PRN Reason: Anxiety Stop: 05/21/21 14:59 Last Admin: 04/21/21 22:01 Dose: 0.25 mg Documented by: Apixaban (Apixaban 5 Mg Tablet) 5 mg PO BID JANINE Stop: 05/10/21 20:59 Last Admin: 04/24/21 08:46 Dose: 5 mg Documented by: Aspirin (Aspirin 81 Mg Ectab) 81 mg PO BID JANINE Stop: 05/10/21 20:59 Last Admin: 04/24/21 08:45 Dose: 81 mg Documented by: Cholestyramine Resin (Cholestyramine Light 4 Gm Pkt) 4 gm PO BID@1000,2200 [facility] Stop: 05/22/21 21:59 Last Admin: 04/24/21 08:46 Dose: 4 gm Documented by: Cyanocobalamin (Cyanocobalamin (Vitamin B-12) 2,500 Mcg Tab.Subl) 5,000 mcg SL DAILY [facility] Stop: 05/11/21 08:59 Last Admin: 04/24/21 08:49 Dose: 5,000 mcg Documented by: Digoxin (Digoxin 0.125 Mg Tab) 0.125 mg PO DAILY@1600 [facility] Stop: 05/21/21 15:59 Last Admin: 04/23/21 17:18 Dose: 0.125 mg Documented by: Ferrous Gluconate (Ferrous Gluconate 324 Mg Tab) 324 mg PO BIDM [facility] Stop: 05/11/21 07:59 Last Admin: 04/24/21 08:46 Dose: 324 mg Documented by: Promethazine HCl 6.25 mg/ (Sodium Chloride) 50.25 mls @ 201 mls/hr IV Q6H PRN PRN Reason: Nausea And Vomiting Stop: 05/18/21 21:04 Last Infusion: 04/19/21 23:59 Dose: Infused Documented by: Ipratropium [place] (Ipratropium Hfa Inhaler (Combivent Respimat P&T Subs)) 2 puffs INH Q6H PRN PRN Reason: Shortness Of Breath Stop: 05/10/21 21:12 Lamotrigine (Lamotrigine 100 Mg Tab) 150 mg PO QAM [facility] Stop: 05/11/21 08:59 Last Admin: 04/24/21 08:44 Dose: 150 mg Documented by: Loperamide HCl (Loperamide Hcl 2 Mg Cap) 2 mg PO [facility] Stop: 05/22/21 20:59 Last Admin: 04/23/21 20:13 Dose: 2 mg Documented by: Melatonin (Melatonin 3 Mg Tab) 3 mg PO [facility] Stop: 05/22/21 20:59 Last Admin: 04/23/21 20:13 Dose: 3 mg Documented by: Metoprolol Tartrate (Metoprolol Tartrate 25 Mg Tab) 25 mg PO BID [facility] Stop: 05/21/21 20:59 Last Admin: 04/24/21 08:49 Dose: 25 mg Documented by: Nitroglycerin (Nitroglycerin Sl 0.4 Mg/Tab Tab) 0.4 mg SL UD PRN PRN Reason: Angina Stop: 05/10/21 20:56 Ondansetron HCl (Ondansetron Inj 2 Mg/Ml 2 Ml Vial) 4 mg IV Q6H PRN PRN Reason: Nausea Stop: 05/10/21 20:56 Last Admin: 04/21/21 22:10 Dose: 4 mg Documented by: Oxycodone HCl (Oxycodone Hcl Ir 5 Mg Tab (Immediate Release)) 5 - 10 mg PO Q6 PRN PRN Reason: pain Stop: 04/24/21 21:09 Last Admin: 04/22/21 21:51 Dose: 5 mg Documented by: Pantoprazole Sodium (Pantoprazole 40 Mg Tab) 40 mg PO [facility] Stop: 05/10/21 20:59 Last Admin: 04/23/21 20:13 Dose: 40 mg Documented by: Pregabalin (Pregabalin 75 Mg Cap) 75 mg PO [facility] Stop: 05/10/21 20:59 Last Admin: 04/23/21 20:13 Dose: 75 mg Documented by: Psyllium Hydrophilic Mucilloid (Psyllium 58.6% Powder Packet) [facility] Stop: 05/21/21 18:44 Last Admin: 04/24/21 08:46 Dose: 1 pkt Documented by: Quetiapine Fumarate (Quetiapine Fumarate 150 Mg Tabcr) 150 mg PO [facility] Stop: 05/10/21 20:59 Last Admin: 04/23/21 20:13 Dose: 150 mg Documented by: Roflumilast (Roflumilast 500 Mcg Tab) 500 mcg PO QAM JANINE Stop: 05/11/21 08:59 Last Admin: 04/24/21 08:44 Dose: 500 mcg Documented by: Rosuvastatin Calcium (Rosuvastatin Calcium 10 Mg Tab) 10 mg PO HS JANINE Stop: 05/10/21 20:59 Last Admin: 04/23/21 20:13 Dose: 10 mg Documented by: Venlafaxine HCl (Venlafaxine Hcl 37.5 Mg Tab) 37.5 mg PO BID JANINE Stop: 05/18/21 20:59 Last Admin: 04/24/21 08:44 Dose: 37.5 mg Documented by: Vitamin D (Cholecalciferol 1,000 Units 25 Mcg Tab) 1,000 units PO DAILY JANINE Stop: 05/11/21 08:59 Last Admin: 04/24/21 08:49 Dose: 1,000 units Documented by: PG Care Time/CCT Total # of Minutes Spent Total Time Spent with Patient: Total time spent is greater than 50% in coordination of care (as documented) at patient's floor/unit and/or counseling patient: Coding Level of Care Code 14968 Subseq Hosp Care Lvl 3 Diagnoses Generalized weakness R53.1 Diarrhea R19.7 Atrial fibrillation with rapid ventricular response I48.91 JULIANN (acute kidney injury) N17.9 Syncope and collapse R55 Hypomagnesemia E83.42 Hypokalemia E87.6 UTI (urinary tract infection) N39.0 Hypertension I10 Hypertension type: essential hypertension GERD (gastroesophageal reflux disease) K21.9 Hyperlipidemia E78.5 Hyperlipidemia type: unspecified DVT (deep venous thrombosis) I82.409 Elevated troponin I level R77.8 SARS-CoV-2 positive U07.1 (1) Hyperlipidemia Hyperlipidemia type: unspecified Qualified Code(s): E78.5 - Hyperlipidemia, u nspecified (2) Hypertension Hypertension type: essential hypertension Qualified Code(s): I10 - Essential (primary) hypertension
[2021-04-24] MEDS: DIGOXIN 0.125 MG TAB PO SCH (17:34)
[2021-04-24] MEDS: PREGABALIN 75 MG CAP PO SCH (20:26)
[2021-04-24] MEDS: LOPERAMIDE HCL 2 MG CAP PO SCH (20:26)
[2021-04-24] MEDS: MELATONIN 3 MG TAB PO SCH (20:27)
[2021-04-24] MEDS: ROSUVASTATIN CALCIUM 10 MG TAB PO SCH (20:27)
[2021-04-24] MEDS: PANTOprazole 40 MG TAB PO SCH (20:28)
[2021-04-25] MEDS: CHOLESTYRAMINE LIGHT 4 GM PKT PO SCH (09:05)
[2021-04-25] MEDS: METOPROLOL TARTRATE 25 MG TAB PO SCH (09:05)
[2021-04-25] MEDS: ASPIRIN 81 MG ECTAB PO SCH (09:05)
[2021-04-25] MEDS: APIXABAN 5 MG TABLET PO SCH (09:05)
[2021-04-25] MEDS: VENLAFAXINE HCL 37.5 MG TAB PO SCH (09:05)
[2021-04-25] MEDS: PSYLLIUM 58.6% POWDER PACKET PO SCH (09:05)
[2021-04-25] MEDS: lamoTRIgine 100 MG TAB PO SCH (09:05)
[2021-04-25] MEDS: CYANOCOBALAMIN (VITAMIN B-12) 2,500 MCG TAB.SUBL SL SCH (09:05)
[2021-04-25] MEDS: ROFLUMILAST 500 MCG TAB PO SCH (09:05)
[2021-04-25] MEDS: CHOLECALCIFEROL 1,000 UNITS 25 MCG TAB PO SCH (09:06)
[2021-04-25] MEDS: FERROUS GLUCONATE 324 MG TAB PO SCH (09:06)
--- NOTE | 2021-04-25 13:17 | Discharge Summary ---
Date of Service April 25, 2021 Admission HPI Per Admitting Provider This is a brian 80-year-old female with past medical history of TFN left hip 03/08, postoperative DVT, and question of upper GI bleed that presents today with tachycardia. Patient is pleasant and historian. Patient had initially had a intertrochanteric hip fracture and was placed on Coumadin and Lovenox post surgery. She had been discharged to rehab but returned on 03/31 with anemia and possible melanotic stool. At that time she had an EGD that did not show any active bleeding. She was changed to Eliquis 5 mg every 12 hours and was once again discharged to rehab. Patient tells me she has been home for approximately a week. She has been doing well without any complaints and has been ambulating without significant pain. Earlier today, the patient's home PT came to visit. During the evaluation, she was found to be extremely tachycardic. The patient did not really have any symptoms this and specifically denied palpitations, chest pain, shortness of breath, or dyspnea on exertion. The therapist made contact with the patient's primary care physician and it was suggested the patient presents to the emergency room for further evaluation. On presentation, she was found to be in atrial fibrillation with a rate of around 150. In the ER, she was given metoprolol 5 mg IV x2 doses. She is already anticoagulated with Eliquis as noted above. At the time my evaluation, patient's blood pressure was acceptable in the 130s. Her heart rate was [id number] and had remained in atrial fibrillation. Patient denied any symptoms as noted above and continues to feel well. Patient is now being admitted for further treatment of her new onset atrial fibrillation with RVR. Principal Diagnosis Atrial fibrillation with RVR Discharge Exam Constitutional WD/WN, vitals as above no acute distress Neck trachea midline, no thyromegaly Respiratory normal respiratory effort, lungs clear to auscultation + cough Cardiovascular Rate/Rhythm: regular rate and + irregularly irregular Heart Sounds: normal S1 and normal S2; no murmur Vessels: normal peripheral pulses; no JVD Extremities: normal capillary refill; no edema Gastrointestinal (Abdomen) normal bowel sounds, soft, nontender, no hepatosplenomegaly Musculoskeletal no cyanosis or clubbing, extremities motor strength 5/5 Head/Neck/Chest: normocephalic, head atraumatic and neck supple Extremities: extremities normal to inspection and + abnormal strength (diffuse weakness, most pronounced in left lower extremity); no cyanosis, no clubbing and no petechiae Skin no rashes, warm and dry Neurologic patellar DTR's 2+ bilat, sensation intact and PERRL, EOMI, accommodation nl, no face palsy, no dysarthria normal touch/pain/proprioception, CN's II-XI intact bilaterally, normal sensation to monofilament, moves all extremities and awake; no focal motor deficits Psychiatric Orientation: alert, oriented x 3 and cooperative Affect: + anxious affect Lymphatic no cervical or axillary lymphadenopathy Discharge Data Allergies Allergy/AdvReac Type Severity Reaction Status Date / Time metoclopramide Allergy Intermediate ESSENTIAL Verified 04/10/21 17:53 TREMORS clopidogrel Allergy Mild HIVES Verified 04/10/21 17:53 diazepam Allergy Mild DEPRESSION Verified 04/10/21 17:53 diltiazem Allergy Mild Light Verified 04/10/21 17:53 headed erythromycin base Allergy Mild EES, TAKES Verified 04/10/21 17:53 Z-PACKS W/O RXN gabapentin Allergy Mild States Verified 04/10/21 17:53 hands catch fire latex Allergy Mild rips skin Verified 04/10/21 17:53 off lisinopril Allergy Mild COUGH Verified 04/10/21 17:53 losartan Allergy Mild HIVES Verified 04/10/21 17:53 micafungin Allergy Mild rash Verified 04/10/21 17:53 oxycodone Allergy Mild INC. Verified 03/31/21 17:41 DEPRESSION Penicillins Allergy Mild Diarrhea Verified 03/31/21 17:41 promethazine Allergy Mild TROUBLE Verified 03/31/21 17:41 FOCUSING SPEAKING AT HIGHER DOSES Sulfa (Sulfonamide Allergy Mild SKIN Verified 03/31/21 17:41 Antibiotics) BECOMES PHOTOSENSITIVE AND BECOMES RED bupropion Allergy Unknown unknown Verified 03/31/21 17:41 dicyclomine Allergy Unknown Unknown Verified 03/31/21 17:41 potassium chloride Allergy Unknown Unknown Verified 03/31/21 17:41 sucralfate Allergy Unknown Unknown Verified 03/31/21 17:41 [id number] Reductase AdvReac Intermediate Diarrhea Verified 03/31/21 17:41 Inhibitor amoxicillin AdvReac Mild DIARRHEA Verified 03/31/21 17:41 clavulanic acid AdvReac Mild DIARRHEA Verified 03/31/21 17:41 hydrocodone AdvReac Mild "dont like Verified 03/31/21 17:41 how it makes me feel" Consultations 04/10/21 18:28 ED Decision to Admit Stat 04/10/21 20:57 Consult Cardiology Routine 04/15/21 17:22 Consult Neurology Routine Ordered Studies 04/16/21 13:06 CT abd pelvis IV con only Urgent Hospital Course (1) Generalized weakness: neurology consult ->most likely due to current COVID infection and hip fracture s/p surgery with associated deconditioning. Has never been formally diagnosed with myasthenia gravis and recent workup last year was not c/w MG. - would obtain outpatient EMG at [facility] with consideration of single fiber EMG if this is normal to completely rule out underlying MG - will likely benefit from rehab on discharge to help re-gain strength - for neurology follow up, recommend that she go to [facility] neuromuscular clinic as they can help her get single fiber EMG if needed will continue to treat afib, UTI, colitis and get PT/OT to work with her prior attending discussed her depression and its impact on her feeling of weakness, she admits that this is a real issue for her. continue Effexor low dose 04/18 although this medication works fast is likely just beginning to be a point where we might notice some difference. On 04/20 she did say she felt slightly better recommend increasing her Effexor after a week overall at this time her Dysthymia is her biggest issue has some slight improvement with Effexor hoping that appetite might improve as well, consider augmenting with Remeron if the Effexor does not improve things in a week or two (2) Diarrhea: C diff negative, stool culture negative, improved with antibiotics CT abd/pelvis on 04/16 with proctocolitis, non specific treated with Cipro/Flagyl po, course completed add Imodium PRN and Questran continue to encourage her to eat (3) Atrial fibrillation with rapid ventricular response: Patient with no previous history of atrial fibrillation, anticoagulated for DVT prior to this admission changed Bystolic to Lopressor 50mg BID has some bradycardia and a pause, will reduce metoprolol to 25 mg bid and continue digoxin initially on Cardizem drip and amiodarone drip, now both are stopped did not convert to NSR as cardiology had hoped Patient is already anticoagulated with Eliquis 5 mg every 12 hours Echo with EF of 55%, moderate mitral regurgitation now rates are well controlled with Lopressor 25mg BID and Digoxin 125mcg every day, checked dig level and was appropriate, Cardiology has supported daily digoxin despite some lower heart rates. (4) JULIANN (acute kidney injury): likely from poor oral intake for a few days, also states that they eat nothing but junk food Cr up to 1.4 a few days ago, now down to normal (5) Syncope and collapse: happened when she was standing up, likely due to low volume, afib, orthostatic changes? covid has been associated with some orthostasis in other pt s gave IV fluids replaced electrolytes (K and Mg normal now) PT/OT evaluations, keep on monitor no further episodes plan for rehab at [facility] (6) Hypomagnesemia: resolved after replacement (7) Hypokalemia: replete (8) UTI (urinary tract infection): 30K Klebsiella on initial culture did not treat initially due to no symptoms now with incontinence, weakness and had syncope got three days of Rocephin due to colitis on CT will change to Cipro/flagyl which will also cover the urine course completed (9) Hypertension: BP stable on Lopressor 25mg BID (10) GERD (gastroesophageal reflux disease): Previous GI bleed, seems to have resolved. Patient is not anemic on presentation Continue PPI as ordered, patient is on Dexilant which will be changed to Protonix while inpatient (11) Hyperlipidemia: Continue Crestor 10 mg nightly or pharmacy equivalent while inpatient (12) DVT (deep venous thrombosis): Eliquis as ordered (13) Elevated troponin I level: demand ischemia from afib with RVR no further work up, no chest pain/pressure echo with preserved EF and no wall motion changes checked troponin twice with the syncopal episode, negative both times (14) SARS-CoV-2 positive: had full vaccine back in January no dexamethasone, no evidence that she has viral pneumonia repeat CXR shows no infiltrates as well the diarrhea could be due to COVID improving/resolving with Imodium and Questran covid + 04/10, discontinued isolation today, family can visit now Total Time Total Time Spent Total Time Spent (In Minutes): 33 minutes Total Time Includes: Examination of the Patient, Discharge Planning and Medication Reconciliation Discharge Plan Discharge Items Patient Disposition: Transfer Detention Fac Reason For Visit: RAPID AFIB Discharge Diagnosis: Afib with RVR Weakness and deconditioning Depression Condition on Discharge: Fair Goals: improve strength improve nutrition improve mood Activity: Resume your previous activity Weightbearing: Full weightbearing Non-emergency contact: Primary Care Provider Call non-emergency contact if: you have any medication questions and your symptoms worsen Follow-up/Referrals: Jeremy Gibbs Jr, MD, [facility] [Physician] - (3-4 weeks, follow up afib) Naomy Boss MD [Physician] - (4-6 weeks, can be with Marlena VILLEDA) Abiel Clark MD [Primary Care Provider] - (one week) Diet: Regular Addtl Attending Provider Instructions: Medications: - DIGOXIN: 125mcg daily, would check a digoxin level one week after discharge - METOPROLOL: 25mg BID for heart rate control with afib - ASPIRIN: reduce to once a day with her being on Eliquis - IMODIUM: take at night - EFFEXOR: started at 37.5mg BID, could increase to 75mg BID in another week (05/01) Afib with RVR: new diagnosis, was her reason for admission tried diltiazem, amiodarone, lopressor good response finally to Digoxin and Lopressor was already on Eliquis 5mg BID for h/o DVT recommend follow up with Dr. Gibbs or Dr. Bales in several weeks heart rate has been controlled for over a week now recommend a digoxin level next week Weakness: history of profound weakness episodes, she is more weak on left leg due to recent hip fracture, repair has been worked up with EMG testing and serology studies at [facility], no diagnosis could be given if weakness does not improve then she could be referred back to [facility] for single fiber EMG testing can follow up with neurology clinic in 6 weeks Depression, poor appetite mood is very poor, she is depressed about current situation started on Effexor 37.5mg BID, can increase to 75mg BID on 05/01 if appetite doesn't improve then consider Remeron as adjunct could refer to geriatric psych as well Diarrhea: negative stool cultures, negative C diff CT a/p showed some non specific colitis, symptoms improved with 7 days of Cipro/Flagyl currently on Questran and Imodium HS, can use the Imodium more often if needed Pending Studies at Discharge: No Stand-Alone Forms: My [facility] [employer] Skilled Items Patient informed of condition?: Yes DNR: No Discharge Level of Care: Acute rehab Communicable Disease: No Discharge Prognosis: Stable Lines: None Urinary Catheter: No Medications and DC Order Prescriptions: New loperamide 2 mg Capsule 2 mg PO HS 30 Days Qty: 30 RF: 0 aspirin 81 mg Tablet,Delayed Release (Dr/Ec) 81 mg PO DAILY 30 Days Qty: 30 RF: 0 venlafaxine 37.5 mg Tablet 37.5 mg PO BID 30 Days Qty: 60 RF: 3 digoxin [Digitek] 125 mcg (0.125 mg) Tablet 125 mcg PO DAILY@1600 30 Days Qty: 30 RF: 3 metoprolol tartrate 25 mg Tablet 25 mg PO BID 30 Days Qty: 60 RF: 3 Continued (DME) Oxygen Home Liters Per Minute See Rx Instructions .ROUTE .MEDSUPPLY Qty: 1 RF: 0 rosuvastatin 10 mg tablet 10 mg PO HS RF: 0 cholecalciferol (vitamin D3) 25 mcg (1,000 unit) capsule 25 mcg PO DAILY RF: 0 cyanocobalamin (vitamin B-12) 5,000 mcg capsule 5,000 mcg PO DAILY RF: 0 lamotrigine 150 mg tablet 150 mg PO QAM RF: 0 nitroglycerin [Nitrostat] 0.4 mg Tablet, Sublingual 0.4 mg Sublingual UD PRN (Reason: Angina) RF: 0 quetiapine 150 mg tablet extended release 24 hr 150 mg PO HS RF: 0 dexlansoprazole 60 mg capsule,biphase delayed releas 60 mg PO HS RF: 0 roflumilast 500 mcg tablet 500 mcg PO QAM RF: 0 Combivent Respimat 20-100 mcg/actuation mist 2 puff INHALATION Q6H PRN (Reason: Shortness Of Breath) RF: 0 Cholestyramine Light 4 gram powder in packet 4 g PO BID@1000,2200 PRN (Reason: ..) RF: 0 ferrous gluconate 324 mg (38 mg iron) Tablet 324 mg PO BIDM Qty: 60 RF: 0 oxycodone 5 mg Tablet 5 - 10 mg PO Q6 PRN (Reason: pain) Qty: 10 RF: 0 ondansetron HCl [Zofran] 4 mg tablet 4 mg PO Q8H PRN (Reason: nausea and vomiting) Qty: 6 RF: 0 pregabalin 75 mg capsule 75 mg PO HS Qty: 30 RF: 0 Eliquis 5 mg tablet 5 mg PO BID Qty: 30 RF: 1 Discontinued Bystolic 5 mg tablet 5 mg PO DAILY RF: 0 aspirin 81 mg Tablet,Delayed Release (Dr/Ec) 81 mg PO BID 39 Days Qty: 78 RF: 0 Discharge Orders: Discharge Order (Routine); Ordered 04/25/21 Ordered By: Chago Gould Admission Data Admit Date/Time: 04/10/21 19:18 Attending Provider: Chago Gould Admit Provider: Ike Tabares Primary Care Provider: Abiel Clark Other Providers: [facility]Home [facility] ; Ike Tabares ; Jeremy Gibbs Jr ; Naomy Boss ; Silvio Cornejo at [place] Other Interventions: Discharge Summary Assessment (RN) Last Done: 04/25/21 13:34 Coding Level of Care Code D/C Day Management >30 mins Diagnoses Generalized weakness R53.1 Diarrhea R19.7 Atrial fibrillation with rapid ventricular response I48.91 JULIANN (acute kidney injury) N17.9 Syncope and collapse R55 Hypomagnesemia E83.42 Hypokalemia E87.6 UTI (urinary tract infection) N39.0 Hypertension I10 Hypertension type: essential hypertension GERD (gastroesophageal reflux disease) K21.9 Hyperlipidemia E78.5 Hyperlipidemia type: unspecified DVT (deep venous thrombosis) I82.409 Elevated troponin I level R77.8 SARS-CoV-2 positive U07.1
[2021-04-25] MEDS: DIGOXIN 0.125 MG TAB PO SCH (15:52)
== END 2021-04-25 16:47 | DRG 308 ==
LOC: ED 15:12 → SUATTDRO 19:18 → 2E 19:18 → 2N 04-20 10:40

== ENCOUNTER 2021-05-08 18:22 | Inpatient (IN) ==
[2021-05-08 20:16] LABS: Basophils # (auto) 0.02 K/uL (0-0.2); Basophils % (auto) 0.2 %; Hemoglobin 12.1 g/dL (12.0-16.0); Immature Granulocytes # (auto) 0.07 K/uL (0.00-0.02); Immature Granulocytes % (auto) 0.6 %; Lymphocytes # (auto) 1.12 K/uL (1.2-3.4); Lymphocytes % (auto) 9.3 %; Mean Corpuscular Hemoglobin 31.5 pg (25-34); Mean Corpuscular Hgb Conc 31.8 g/dL (32-36); Mean Platelet Volume 10.4 fL (7.4-10.4); Monocytes # (auto) 1.05 K/uL (0.11-0.59); Monocytes % (auto) 8.7 %; Neutrophils # (auto) 9.78 K/uL (1.4-6.5); Neutrophils % (auto) 81.2 %; Platelet Count 320 K/uL (130-400); RDW Coefficient of Variation 17.7 % (11.5-14.5); RDW Standard Deviation 63.3 fL (36.4-46.3); Red Blood Count 3.84 M/uL (4.2-5.4); White Blood Count 12.04 K/uL (4.8-10.8)
[2021-05-08] MEDS: SODIUM CHLORIDE 0.9% 1000ML 1,000 ML IV SCH (20:22)
[2021-05-08 20:25] LABS: Alanine Aminotransferase 9 U/L (12-78); Albumin Level 2.4 gm/dl (3.4-5.0); Aspartate Aminotransferase 15 U/L (15-37); BUN Creatinine Ratio 18.9 (10-20); Blood Urea Nitrogen 28 mg/dl (7-18); Calcium 8.4 mg/dl (8.5-10.1); Carbon Dioxide 31 mmol/L (21-32); Chloride 104 mmol/L (98-107); Est GFR (African American) 39.3 ml/min; Est GFR (Non-African American) 33.9 ml/min; Glucose 129 mg/dl (70-99); Lipase 71 U/L (73-393); Magnesium 1.7 mg/dl (1.8-2.4); Potassium 2.8 mmol/L (3.5-5.1); Sodium 146 mmol/L (136-145)
[2021-05-08] MEDS ORDERED: MAGNESIUM SULFATE / D5W 1 GM/100 ML BAG IV STA (20:33)
[2021-05-08 20:36] LABS: Albumin Globulin Ratio 0.7 (0.9-2); Alkaline Phosphatase 72 U/L (45-117); Bilirubin,Total 0.6 mg/dl (0.2-1); Globulin 3.7 gm/dl (2.5-4.0); NT Pro B Type Natriuretic Pept 5783 pg/ml (0-1800); Total Protein 6.1 gm/dl (6.4-8.2); Troponin I 0.099 ng/ml (0-0.045)
--- NOTE | 2021-05-08 20:44 | XRay Report ---
SINGLE VIEW CHEST CLINICAL HISTORY: Change in mental status. FINDINGS: An AP, portable, upright chest radiograph is compared to study dated 04/15/2021. Correlation is made with chest CT dated 08/15/2018. The examination is mildly degraded by portable technique and patient rotation. The cardiomediastinal silhouette is unremarkable noting atherosclerotic calcificati on of the thoracic aorta. Chronic residual thickening is similar to previous. No airspace consolidati on or large pleural effusion is identified. No pneumothorax is seen. The skeletal structures are oste openic. The bony thorax is grossly intact. Cholecystectomy clips are seen in the right upper quadrant . IMPRESSION: No active disease in the chest. ACT 112: Negative or not required by law. Electronically signed by: Doug Mancilla M.D. 05/08/2021 8:42 PM
--- NOTE | 2021-05-08 21:07 | CT Scan Report ---
CT SCAN OF THE BRAIN WITHOUT IV CONTRAST CLINICAL HISTORY: Change in mental status. COMPARISON STUDY: CT of the brain dated 12/22/2012. MRI of the brain dated 02/06/2018. TECHNIQUE: Unenhanced axial CT scan of the brain is performed from the vertex to the skull base. A do se lowering technique was utilized adhering to the principles of ALARA. CT DOSE: 537.48 mGy.cm FINDINGS: Brain parenchyma: There are age-related involutional changes noting moderate patchy subcortical and periventricular microangiopathic change. There is no hemorrhage, mass effect, or evidence of acute te rritorial ischemia by CT criteria. Chronic lacunar infarcts are noted in the cerebellar hemispheres, the right thalamus, and the left basal ganglia. Aragon-white matter differentiation is preserved. No ex tra-axial fluid collection is seen. Ventricles, sulci, cisterns: Prominent secondary to involutional change. Intracranial vasculature: There is atherosclerotic calcification of the cavernous carotid and vertebr al arteries. Calvarium: Unremarkable. Sinuses and mastoids: There is subtotal opacification of the sphenoid sinuses. The remaining visualiz ed paranasal sinuses are clear. The mastoid air cells are well pneumatized. Orbits: The bony orbits are grossly intact. There are bilateral ocular lens implants. IMPRESSION: 1. There is no hemorrhage, mass effect, or evidence of acute territorial ischemia by CT criteria. 2. Sphenoid sinusitis. ACT 112: Negative or not required by law. Electronically signed by: Doug Mancilla M.D. 05/08/2021 9:05 PM
[2021-05-08] MEDS ORDERED: POTASSIUM CHLORIDE CRTAB 20 MEQ TABCR PO STA (22:26)
--- NOTE | 2021-05-08 23:18 | History & Physical Report ---
Date of Service May 08, 2021 Assessment & Plan (1) Diarrhea: Work-up at last admission was C. difficile negative, stool culture negative, and improved with Cipro and Flagyl treatment for nonspecific proctocolitis noted on CT of abdomen pelvis on 04/16 Nurses report that she had 3 bowel movements in the emergency department, but they were of normal character Her symptoms had improved with Imodium and Questran during last admission. Continue loperamide 2 mg p.o. at bedtime. Resume Questran, which is presently not on her medication list and unclear if it was discontinued or dropped off Present on Admission?: Yes (2) Generalized weakness: Multifactorial. We will follow her response to rehydration with IV fluids and supplementation of potassium Improving control of her frequent bowel movements Present on Admission?: Yes (3) GERD (gastroesophageal reflux disease): Continue omeprazole 20 mg daily for now, could be a source of frequent stools Present on Admission?: Yes (4) Hypothyroid: Is a diagnosis of hypothyroidism, is not on any thyroid hormone replacement. Check a TSH Present on Admission?: Yes (5) Anxiety: Bipolar 1 disorder/Anxiety with depression- Was noted in the past to be contributing to overall symptomatology Continue lamotrigine, pregabalin, quetiapine and venlafaxine Present on Admission?: Yes (6) Bipolar 1 disorder: See above Present on Admission?: Yes (7) Depression: See above Present on Admission?: Yes (8) COPD (chronic obstructive pulmonary disease): Continue as needed duo nebs Present on Admission?: Yes (9) Atrial fibrillation: Elevated troponin/atrial fibrillation/hypertension- The patient will be admitted to telemetry for serial cardiac enzymes, serial EKG's, cardiac rhythm monitoring. Continue digoxin, Eliquis, metoprolol tartrate and potassium chloride Likely type II, supply demand mismatch Present on Admission?: Yes (10) Hyperlipidemia: Continue rosuvastatin Present on Admission?: Yes (11) Hypertension: See above Present on Admission?: Yes (12) COVID-19 virus infection: Patient did have full vaccine in January 2021 Was noted to be positive on 04/10 and04/25/2021, but was not felt to be need to be treated due to no symptomatology. She again has no symptoms. Present on Admission?: Yes (13) Acute kidney injury: Creatinine 1.46 upon admission, with baseline 0.69. Potassium 2.8 upon admission. Likely brought on by diarrhea and decreased oral intake Received potassium 40 mEq p.o. in the ED. NSS + KCl 20 mEq at 80 mils per hour x2 L Present on Admission?: Yes (14) Hypokalemia: See above Present on Admission?: Yes History of Present Illness Chief Complaint: The patient presents to the emergency department with weakness, dehydration, confusion and recent admission for atrial fibrillation with RVR from 04/10-04/25/2021 Primary Care Provider: Abiel Clark MD The patient is a 81-year-old female with a past medical history including GERD, closed left hip fracture, B12 deficiency, iron deficiency, hypothyroidism, anxiety, myasthenia gravis, vitamin D deficiency, COPD, rotator cuff tear, hypertension, depression, bipolar 1 disorder, sleep apnea and hyperlipidemia. She presents with the above symptoms, but is not able to articulate well her current symptoms. Allergies Allergy/AdvReac Type Severity Reaction Status Date / Time metoclopramide Allergy Intermediate ESSENTIAL Verified 05/08/21 19:53 TREMORS clopidogrel Allergy Mild HIVES Verified 05/08/21 19:53 diazepam Allergy Mild DEPRESSION Verified 05/08/21 19:53 diltiazem Allergy Mild Light Verified 05/08/21 19:53 headed erythromycin base Allergy Mild EES, TAKES Verified 05/08/21 19:53 Z-PACKS W/O RXN gabapentin Allergy Mild States Verified 05/08/21 19:53 hands catch fire latex Allergy Mild rips skin Verified 05/08/21 19:53 off lisinopril Allergy Mild COUGH Verified 05/08/21 19:53 losartan Allergy Mild HIVES Verified 05/08/21 19:53 micafungin Allergy Mild rash Verified 05/08/21 19:53 oxycodone Allergy Mild INC. Verified 05/08/21 19:53 DEPRESSION Penicillins Allergy Mild Diarrhea Verified 05/08/21 19:53 promethazine Allergy Mild TROUBLE Verified 05/08/21 19:53 FOCUSING SPEAKING AT HIGHER DOSES Sulfa (Sulfonamide Allergy Mild SKIN Verified 05/08/21 19:53 Antibiotics) BECOMES PHOTOSENSITIVE AND BECOMES RED bupropion Allergy Unknown unknown Verified 05/08/21 19:53 dicyclomine Allergy Unknown Unknown Verified 05/08/21 19:53 potassium chloride Allergy Unknown Unknown Verified 05/08/21 19:53 sucralfate Allergy Unknown Unknown Verified 05/08/21 19:53 [id number]-[id number] Reductase AdvReac Intermediate Diarrhea Verified 05/08/21 19:53 Inhibitor amoxicillin AdvReac Mild DIARRHEA Verified 05/08/21 19:53 clavulanic acid AdvReac Mild DIARRHEA Verified 05/08/21 19:53 hydrocodone AdvReac Mild "dont like Verified 05/08/21 19:53 how it makes me feel" Home Medications Medication Instructions Recorded Confirmed Type lamotrigine 150 mg PO QAM 01/01/19 05/08/21 History nitroglycerin [Nitrostat] 0.4 mg SUBLINGUAL UD PRN 01/01/19 05/08/21 History quetiapine 150 mg PO HS 01/01/19 05/08/21 History roflumilast 500 mcg PO QAM 01/01/19 05/08/21 History Oxygen Home #1 ea 07/21/20 04/10/21 History cholecalciferol (vitamin D3) 25 25 mcg PO DAILY 01/11/21 05/08/21 History mcg (1,000 unit) capsule cyanocobalamin (vitamin B-12) 5,000 mcg PO DAILY 01/11/21 05/08/21 History 5,000 mcg capsule ipratropium 20 mcg-albuterol 100 2 puff INHALATION Q6H PRN g 01/11/21 05/08/21 History mcg/actuation mist for inhalation rosuvastatin 10 mg tablet 10 mg PO HS 01/11/21 05/08/21 History ferrous gluconate 324 mg PO BIDM #60 tab 03/11/21 05/08/21 Rx ondansetron HCl [Zofran] 4 mg PO Q8H PRN #6 tab 03/11/21 05/08/21 Rx pregabalin 75 mg PO HS #30 cap 03/11/21 05/08/21 Rx Eliquis 5 mg PO BID #30 tab 04/04/21 05/08/21 Rx aspirin 81 mg PO DAILY 30 Days #30 tab 04/25/21 05/08/21 Rx digoxin [Digitek] 125 mcg PO DAILY@1600 30 Days #30 04/25/21 05/08/21 Rx tab loperamide 2 mg PO HS 30 Days #30 cap 04/25/21 05/08/21 Rx metoprolol tartrate 25 mg PO BID 30 Days #60 tab 04/25/21 05/08/21 Rx omeprazole 20 mg PO HS 05/08/21 05/08/21 History potassium chloride 20 meq PO QAM 05/08/21 05/08/21 History venlafaxine 37.5 mg PO QAM 05/08/21 05/08/21 History Past Med/Surg History Medical History Anemia REASON FOR COLONOSCOPY 07/2019 Bipolar 1 disorder Breast cancer (08/23/14) "Abnormal bilateral mammogram Status post core needle biopsy 08/23/2014 revealing intraductal papilloma on the left Right breast showed invasive ductal carcinoma Status post right lumpectomy and sentinel lymph node biopsy 10/08/2014 Stage [id number] Status post completion of radiation therapy 12/24/2014 utilizing hypo- fractionation received 5000 cGy" Breast cancer, right 2014--stage 1--lumpectomy and radiation CAD (coronary artery disease) Change in vision Chronic obstructive pulmonary disease inhaler daily Degenerative joint disease Depression Fall GERD (gastroesophageal reflux disease) History of colon polyps Hyperlipidemia Hypertension Hypothyroidism Medical marijuana use Myocardial Infarction "silent" in s--follows with Dr. Gibbs On home oxygen therapy 2L N/C at hs Pancreatitis hx of Papilloma of breast left Sleep apnea Temporal arteritis Unstable angina Unstable angina Surgical History History of bilateral cataract extraction History of bilateral tubal ligation History of breast surgery removal of papilloma of left breast History of cardiac cath x3--last ---no stents History of cholecystectomy History of colonoscopy History of esophagogastroduodenoscopy (EGD) History of lumpectomy of right breast History of right breast biopsy malignant History of tooth extraction all teeth removed History of total hysterectomy with bilateral salpingo-oophorectomy (BSO) Family History Grandfather (Paternal) Family history of diabetes mellitus Other No family history of adverse response to anesthesia Social History Smoking Status: Former smoker Cigarettes Per Day: 20 a day; Second Hand Exposure: No; Do You Dip or Chew Tobacco: No; Hx Alcohol Use: No Hx Substance Use: No Preferred Language: Palestinian Communication Ability: Effective Janitor And Cleaner Required: No Beliefs That Will Affect Care: None Current Living Situation: Spouse Other Information That Helps Us Care for You: No Feels Safe at Home: Yes Safety Concerns: Feels Safe At This Time Assistive Devices: Cane and Walker Review of Systems Review of Systems: Unobtainable due to cognitive status Physical Exam Physical Exam: The patient is awake, confused, normocephalic and atraumatic, lying in bed and in no acute distress. HEENT--PERRL, EOMI, mucous membranes and oropharynx dry. Neck--supple. No JVD. No bruits. Thyroid normal, trachea midline, no adenopathy. Heart--irregularly irregular. No murmurs, rubs or gallops. Lungs--clear bilaterally, no respiratory distress, no accessory muscle use. Abdomen--normal bowel sounds and soft. Nontender. Nondistended, no hernias or masses, no organomegaly. Extremities--no cyanosis or clubbing. No edema. Dermatologic--skin is dry Neurologic--cranial nerves II through XII grossly intact. Rheumatologic--limited exam. Psychiatric--normal affect. Results & Data Results & Data ([facility]) Vital Signs (Past 12 Hours) Vital Signs Temp Pulse Resp BP Pulse Ox 05/08/21 18:28 98.6 F 99 H 17 140/106 H 92 Laboratory Results Laboratory Results WBC 12.04 K/uL (4.8-10.8) H 05/08/21 18:41 RBC 3.84 M/uL (4.2-5.4) L 05/08/21 18:41 Hgb 12.1 g/dL (12.0-16.0) 05/08/21 18:41 Hct 38.0 % (37-47) 05/08/21 18:41 MCV 99.0 fL (80-100) 05/08/21 18:41 MCH 31.5 pg (25-34) 05/08/21 18:41 MCHC 31.8 g/dL (32-36) L 05/08/21 18:41 RDW Std Deviation 63.3 fL (36.4-46.3) H 05/08/21 18:41 RDW Coeff of Gino 17.7 % (11.5-14.5) H 05/08/21 18:41 Plt Count 320 K/uL (130-400) 05/08/21 18:41 MPV 10.4 fL (7.4-10.4) 05/08/21 18:41 Immature Gran % (Auto) 0.6 % 05/08/21 18:41 Neut % (Auto) 81.2 % 05/08/21 18:41 Lymph % (Auto) 9.3 % 05/08/21 18:41 [place] % (Auto) 8.7 % 05/08/21 18:41 Eos % (Auto) 0.0 % 05/08/21 18:41 Baso % (Auto) 0.2 % 05/08/21 18:41 Neut # (Auto) 9.78 K/uL (1.4-6.5) H 05/08/21 18:41 Lymph # (Auto) 1.12 K/uL (1.2-3.4) L 05/08/21 18:41 [place] # (Auto) 1.05 K/uL (0.11-0.59) H 05/08/21 18:41 Eos # (Auto) 0.00 K/uL (0-0.5) 05/08/21 18:41 Baso # (Auto) 0.02 K/uL (0-0.2) 05/08/21 18:41 Immature Gran # (Auto) 0.07 K/uL (0.00-0.02) H 05/08/21 18:41 Sodium 146 mmol/L (136-145) H 05/08/21 18:41 Potassium 2.8 mmol/L (3.5-5.1) L 05/08/21 18:41 Chloride 104 mmol/L (98-107) 05/08/21 18:41 Carbon Dioxide 31 mmol/L (21-32) 05/08/21 18:41 Anion Gap 10.0 (3-11) 05/08/21 18:41 BUN 28 mg/dl (7-18) H D 05/08/21 18:41 Creatinine 1.46 mg/dl (0.6-1.2) H D 05/08/21 18:41 Est Cr Clr Drug Dosing Not Reportable 05/08/21 18:41 Est GFR ( Amer) 39.3 ml/min 05/08/21 18:41 Est GFR (Non-Af Amer) 33.9 ml/min 05/08/21 18:41 BUN/Creatinine Ratio 18.9 (10-20) 05/08/21 18:41 Glucose 129 mg/dl (70-99) H 05/08/21 18:41 Calcium 8.4 mg/dl (8.5-10.1) L 05/08/21 18:41 Magnesium 1.7 mg/dl (1.8-2.4) L 05/08/21 18:41 Total Bilirubin 0.6 mg/dl (0.2-1) 05/08/21 18:41 AST 15 U/L (15-37) 05/08/21 18:41 ALT 9 U/L (12-78) L 05/08/21 18:41 Alkaline Phosphatase 72 U/L (45-117) 05/08/21 18:41 Troponin I 0.099 ng/ml (0-0.045) H* 05/08/21 18:41 NT-Pro-B Natriuret Pep 5783 pg/ml (0-1800) H 05/08/21 18:41 Total Protein 6.1 gm/dl (6.4-8.2) L 05/08/21 18:41 Albumin 2.4 gm/dl (3.4-5.0) L 05/08/21 18:41 Globulin 3.7 gm/dl (2.5-4.0) 05/08/21 18:41 Albumin/Globulin Ratio 0.7 (0.9-2) L 05/08/21 18:41 Lipase 71 U/L (73-393) L 05/08/21 18:41 TSH 1.500 uIu/ml (0.300-4.500) 05/08/21 18:41 COVID-19 Eval Order Covid19 at [facility] 05/08/21 21:50 SARS-CoV-2 (PCR) POSITIVE (Negative) A* 05/08/21 21:50 Impressions Chest X-Ray 05/08/21 20:02 SINGLE VIEW CHEST CLINICAL HISTORY: Change in mental status. FINDINGS: An AP, portable, upright chest radiograph is compared to study dated 04/15/2021. Correlation is made with chest CT dated 08/15/2018. The examination is mildly degraded by portable technique and patient rotation. The cardiomediastinal silhouette is unremarkable noting atherosclerotic calcification of the thoracic aorta. Chronic residual thickening is similar to previous. No airspace consolidation or large pleural effusion is identified. No pneumothorax is seen. The skeletal structures are osteopenic. The bony thorax is grossly intact. Cholecystectomy clips are seen in the right upper quadrant. IMPRESSION: No active disease in the chest. ACT 112: Negative or not required by law. Electronically signed by: Doug Mancilla M.D. 05/08/2021 8:[address] 05/08/21 20:02 CT SCAN OF THE BRAIN WITHOUT IV CONTRAST CLINICAL HISTORY: Change in mental status. COMPARISON STUDY: CT of the brain dated 12/22/2012. MRI of the brain dated 02/06/2018. TECHNIQUE: Unenhanced axial CT scan of the brain is performed from the vertex to the skull base. A dose lowering technique was utilized adhering to the principles of ALARA. CT DOSE: 537.48 mGy.cm FINDINGS: Brain parenchyma: There are age-related involutional changes noting moderate patchy subcortical and periventricular microangiopathic change. There is no hemorrhage, mass effect, or evidence of acute territorial ischemia by CT criteria. Chronic lacunar infarcts are noted in the cerebellar hemispheres, the right thalamus, and the left basal ganglia. Aragon-white matter differentiation is preserved. No extra-axial fluid collection is seen. Ventricles, sulci, cisterns: Prominent secondary to involutional change. Intracranial vasculature: There is atherosclerotic calcification of the cavernous carotid and vertebral arteries. Calvarium: Unremarkable. Sinuses and mastoids: There is subtotal opacification of the sphenoid sinuses. The remaining visualized paranasal sinuses are clear. The mastoid air cells are well pneumatized. Orbits: The bony orbits are grossly intact. There are bilateral ocular lens implants. IMPRESSION: 1. There is no hemorrhage, mass effect, or evidence of acute territorial ischemia by CT criteria. 2. Sphenoid sinusitis. ACT 112: Negative or not required by law. Electronically signed by: Doug Mancilla M.D. 05/08/2021 9:05 PM Code Status & VTE Plan Code Status Full code VTE Prophylaxis Plan VTE Prophylaxis will be ordered: Yes PG Care Time/CCT Total # of Minutes Spent Total Time Spent with Patient: Total time spent is greater than 50% in coordination of care (as documented) at patient's floor/unit and/or counseling patient: Coding Level of Care Code 94720 Initial Inpt Care Lvl 3 Diagnoses Diarrhea R19.7 Generalized weakness R53.1 GERD (gastroesophageal reflux disease) K21.9 Hypothyroid E03.9 Hypothyroidism type: unspecified Anxiety F41.9 Bipolar 1 disorder F31.9 Depression F32.9 COPD (chronic obstructive pulmonary disease) J44.9 COPD type: unspecified COPD Atrial fibrillation I48.91 Hyperlipidemia E78.5 Hyperlipidemia type: unspecified Hypertension I10 Hypertension type: essential hypertension COVID-19 virus infection U07.1 Acute kidney injury N17.9 Hypokalemia E87.6 (1) Hypothyroid Hypothyroidism type: unspecified Qualified Code(s): E03.9 - Hypothyroidism, unspecified (2) COPD (chronic obstructive pulmonary disease) COPD type: unspecified COPD Qualified Code(s): J44.9 - Chronic obstructive pulmonary disease, unspecified (3) Hyperlipidemia Hyperlipidemia type: unspecified Qualified Code(s): E78.5 - Hyperlipidemia, unspecified (4) Hypertension Hypertension type: essential hypertension Qualified Code(s): I10 - Essential (primary) hypertension
--- NOTE | 2021-05-09 00:49 | Emergency Department Note ---
History of Present Illness General Chief complaint: Dehydration Stated complaint: WEAKNESS Time Seen by Provider: 05/08/21 19:47 Source: patient and family Mode of arrival: EMS Limitations: altered mental status History of Present Illness Provider complaint: Diarrhea, dehydration, confusion Onset (ago): day(s) This is a 81-year-old female who presents via EMS due to concern for dehydration. EMS was contacted by a visiting home nurse who attempted to put an IV on the patient yesterday but was unsuccessful. When I contacted to recheck her today, she seemed worse and family was concerned so they suggested coming to the emergency room. Patient has been in and out of the hospital recently with several complaints and then rehabbing at a local facility. Most recently patient was here with GI bleed as she is anticoagulated. Patient stools at that time were checked and were negative for C. difficile as well as other acute bacterial infections. Patient states the food at this facility is unappealing and so she does not want to eat. She states he is trying to drink plenty of water. She states she has had persistent diarrhea in addition and is feeling weak and washed out. feels though she is getting worse and when they put a family member on the phone and asked that I speak with them, family states she has been getting confused as well and today seemed worse, almost "delirious". They are concerned for her ability to care for herself at home and the 's ability to help. We discussed her recent hospitalizations and medication changes. We discussed need for labs, neuroimaging, IV fluids and hospitalization, daughter on the phone verbalized understanding was in agreement with plan as did at bedside. Patient also recently did have coronavirus. Pt seen during a time of high acuity and national emergency pandemic while wearing PPE. Home Medications Medication Instructions Recorded Confirmed Type lamotrigine 150 mg PO QAM 01/01/19 05/08/21 History nitroglycerin [Nitrostat] 0.4 mg SUBLINGUAL UD PRN 01/01/19 05/08/21 History quetiapine 150 mg PO HS 01/01/19 05/08/21 History roflumilast 500 mcg PO QAM 01/01/19 05/08/21 History Oxygen Home #1 ea 07/21/20 04/10/21 History cholecalciferol (vitamin D3) 25 25 mcg PO DAILY 01/11/21 05/08/21 History mcg (1,000 unit) capsule cyanocobalamin (vitamin B-12) 5,000 mcg PO DAILY 01/11/21 05/08/21 History 5,000 mcg capsule ipratropium 20 mcg-albuterol 100 2 puff INHALATION Q6H PRN g 01/11/21 05/08/21 History mcg/actuation mist for inhalation rosuvastatin 10 mg tablet 10 mg PO HS 01/11/21 05/08/21 History ferrous gluconate 324 mg PO BIDM #60 tab 03/11/21 05/08/21 Rx ondansetron HCl [Zofran] 4 mg PO Q8H PRN #6 tab 03/11/21 05/08/21 Rx pregabalin 75 mg PO HS #30 cap 03/11/21 05/08/21 Rx Eliquis 5 mg PO BID #30 tab 04/04/21 05/08/21 Rx aspirin 81 mg PO DAILY 30 Days #30 tab 04/25/21 05/08/21 Rx digoxin [Digitek] 125 mcg PO DAILY@1600 30 Days #30 04/25/21 05/08/21 Rx tab loperamide 2 mg PO HS 30 Days #30 cap 04/25/21 05/08/21 Rx metoprolol tartrate 25 mg PO BID 30 Days #60 tab 04/25/21 05/08/21 Rx omeprazole 20 mg PO HS 05/08/21 05/08/21 History potassium chloride 20 meq PO QAM 05/08/21 05/08/21 History venlafaxine 37.5 mg PO QAM 05/08/21 05/08/21 History Allergies Allergy/AdvReac Type Severity Reaction Status Date / Time metoclopramide Allergy Intermediate ESSENTIAL Verified 05/08/21 19:53 TREMORS clopidogrel Allergy Mild HIVES Verified 05/08/21 19:53 diazepam Allergy Mild DEPRESSION Verified 05/08/21 19:53 diltiazem Allergy Mild Light Verified 05/08/21 19:53 headed erythromycin base Allergy Mild EES, TAKES Verified 05/08/21 19:53 Z-PACKS W/O RXN gabapentin Allergy Mild States Verified 05/08/21 19:53 hands catch fire latex Allergy Mild rips skin Verified 05/08/21 19:53 off lisinopril Allergy Mild COUGH Verified 05/08/21 19:53 losartan Allergy Mild HIVES Verified 05/08/21 19:53 micafungin Allergy Mild rash Verified 05/08/21 19:53 oxycodone Allergy Mild INC. Verified 05/08/21 19:53 DEPRESSION Penicillins Allergy Mild Diarrhea Verified 05/08/21 19:53 promethazine Allergy Mild TROUBLE Verified 05/08/21 19:53 FOCUSING SPEAKING AT HIGHER DOSES Sulfa (Sulfonamide Allergy Mild SKIN Verified 05/08/21 19:53 Antibiotics) BECOMES PHOTOSENSITIVE AND BECOMES RED bupropion Allergy Unknown unknown Verified 05/08/21 19:53 dicyclomine Allergy Unknown Unknown Verified 05/08/21 19:53 potassium chloride Allergy Unknown Unknown Verified 05/08/21 19:53 sucralfate Allergy Unknown Unknown Verified 05/08/21 19:53 Xizbkwq-Xcl-Bke Reductase AdvReac Intermediate Diarrhea Verified 05/08/21 19:53 Inhibitor amoxicillin AdvReac Mild DIARRHEA Verified 05/08/21 19:53 clavulanic acid AdvReac Mild DIARRHEA Verified 05/08/21 19:53 hydrocodone AdvReac Mild "dont like Verified 05/08/21 19:53 how it makes me feel" Past Med/Surg History Medical History Anemia REASON FOR COLONOSCOPY 07/2019 Atrial fibrillation Atrial fibrillation with rapid ventricular response Bipolar 1 disorder Breast cancer (08/23/14) "Abnormal bilateral mammogram Status post core needle biopsy 08/23/2014 revealing intraductal papilloma on the left Right breast showed invasive ductal carcinoma Status post right lumpectomy and sentinel lymph node biopsy 10/08/2014 Stage [id number] Status post completion of radiation therapy 12/24/2014 utilizing hypo- fractionation received 5000 cGy" Breast cancer, right 2013--stage 1--lumpectomy and radiation Change in vision Chronic obstructive pulmonary disease inhaler daily Degenerative joint disease Depression Elevated troponin I level Fall GERD (gastroesophageal reflux disease) History of colon polyps Hyperlipidemia Hypertension Hypokalemia Hypothyroidism Medical marijuana use Myocardial Infarction "silent" in --follows with Dr. Gibbs On home oxygen therapy 2L N/C at hs Pancreatitis hx of Papilloma of breast left Sleep apnea Temporal arteritis Unstable angina Unstable angina Surgical History History of bilateral cataract extraction History of bilateral tubal ligation History of breast surgery removal of papilloma of left breast History of cardiac cath x3--last ---no stents History of cholecystectomy History of colonoscopy History of esophagogastroduodenoscopy (EGD) History of lumpectomy of right breast History of right breast biopsy malignant History of tooth extraction all teeth removed History of total hysterectomy with bilateral salpingo-oophorectomy (BSO) Family History Grandfather (Paternal) Family history of diabetes mellitus Other No family history of adverse response to anesthesia Social History Smoking Status: Former smoker Cigarettes Per Day: 20 a day; Second Hand Exposure: No; Do You Dip or Chew Tobacco: No; Hx Alcohol Use: No Hx Substance Use: No Preferred Language: Zambian Communication Ability: Impaired 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 Unobtainable due to cognitive status Physical Exam Vital Signs Vital Signs - 24 hr 05/08/21 18:28 05/08/21 23:15 05/08/21 23:30 Temperature 37.0 C Temperature Source Oral Pulse Rate 99 H 82 83 Pulse Rate from SpO2 Sensor 81 85 Pulse Rhythm Irregular Respiratory Rate 17 21 24 Respiratory Effort / Characteristics Non-Labored Spontaneous Respiratory Depth Normal Respiratory Pattern Regular Blood Pressure 140/106 H Blood Pressure Mean 117 Pulse Oximetry 92 91 95 Oxygen Delivery Method Room Air Sepsis Recent Fever Within 48 Hours No Sepsis New/Unexplained Change in Mental Status No Sepsis Action Taken by Nursing No Action Required 05/08/21 23:31 05/08/21 23:45 05/08/21 23:47 Temperature Temperature Source Pulse Rate 82 85 88 Pulse Rate from SpO2 Sensor 85 89 Pulse Rhythm Respiratory Rate 23 21 24 Respiratory Effort / Characteristics Respiratory Depth Respiratory Pattern Blood Pressure 180/78 H Blood Pressure Mean 112 Pulse Oximetry 94 93 93 Oxygen Delivery Method Sepsis Recent Fever Within 48 Hours Sepsis New/Unexplained Change in Mental Status Sepsis Action Taken by Nursing GENERAL: alert, well appearing, well nourished, no distress, non-toxic EYE EXAM: normal conjunctiva, PERRL and EOM's grossly intact OROPHARYNX: no exudate, no erythema, lips, buccal mucosa, and tongue normal and mucous membranes are dry NECK: supple, no nuchal rigidity, no adenopathy, non-tender LUNGS: Clear to auscultation. Normal chest wall mechanics, no w/r/r HEART: no murmurs, S1 normal and S2 normal ABDOMEN: abdomen soft, non-tender, normo-active bowel sounds, no masses, no rebound or guarding. BACK: Back is symmetrical on inspection and there is no deformity, no midline tenderness, no CVA tenderness. SKIN: no rashes and no bruising UPPER EXTREMITIES: upper extremities are grossly normal. FROM, nml pulses b/l. LOWER EXTREMITIES: No pitting edema. FROM, nml pulses b/l. NEURO EXAM: Normal sensorium, cranial nerves II-XII grossly intact, normal speech, no gross weakness of arms, no gross weakness of legs. Gross sensation intact. Course Administered Medications Apixaban (Apixaban 5 Mg Tablet) 5 mg PO BID [facility] Stop: 06/08/21 00:56 Last Admin: 05/09/21 22:24 Dose: 5 mg Documented by: [id number] Admin: 05/09/21 08:21 Dose: 5 mg Documented by: [id number] Admin: 05/09/21 01:43 Dose: 5 mg Documented by: [id number] Aspirin (Aspirin 81 Mg Ectab) 81 mg PO DAILY [facility] Stop: 06/08/21 08:59 Last Admin: 05/09/21 08:11 Dose: 81 mg Documented by: [id number] Cholestyramine Resin (Cholestyramine Light 4 Gm Pkt) 4 gm PO BID@1000,2200 [facility] Stop: 06/08/21 09:59 Last Admin: 05/09/21 23:39 Dose: 4 gm Documented by: [id number] Admin: 05/09/21 10:47 Dose: 4 gm Documented by: [id number] Cyanocobalamin (Cyanocobalamin (Vitamin B-12) 2,500 Mcg Tab.Subl) 5,000 mcg SL DAILY [facility] Stop: 06/08/21 08:59 Last Admin: 05/09/21 08:12 Dose: 5,000 mcg Documented by: [id number] Digoxin (Digoxin 0.125 Mg Tab) 0.125 mg PO DAILY@1600 [facility] Stop: 06/08/21 15:59 Last Admin: 05/09/21 18:13 Dose: Not Given Documented by: [id number] Ferrous Gluconate (Ferrous Gluconate 324 Mg Tab) 324 mg PO BIDM [facility] Stop: 06/08/21 07:59 Last Admin: 05/09/21 18:13 Dose: Not Given Documented by: [id number] Admin: 05/09/21 08:11 Dose: 324 mg Documented by: [id number] Dextrose (D5w) 1,000 mls @ 80 mls/hr IV .[id number] [facility] Stop: 06/08/21 07:44 Last Admin: 05/09/21 20:58 Dose: 80 mls/hr Documented by: [id number] Infusion: 05/09/21 20:46 Dose: 80 mls/hr Documented by: [id number] Admin: 05/09/21 08:16 Dose: 80 mls/hr Documented by: [id number] Lamotrigine (Lamotrigine 100 Mg Tab) [facility]: 06/08/21 08:59 Last Admin: 05/09/21 08:11 Dose: 150 mg Documented by: [id number] Loperamide HCl (Loperamide Hcl 2 Mg Cap) 2 mg PO [facility] Stop: 06/08/21 20:59 Last Admin: 05/09/21 22:35 Dose: 2 mg Documented by: [id number] Metoprolol Tartrate (Metoprolol Tartrate 25 Mg Tab) 25 mg PO BID [facility] Stop: 06/08/21 00:56 Last Admin: 05/09/21 22:30 Dose: 25 mg Documented by: [id number] Admin: 05/09/21 08:10 Dose: 25 mg Documented by: [id number] Admin: 05/09/21 01:43 Dose: 25 mg Documented by: [id number] Pantoprazole Sodium (Pantoprazole 40 Mg Tab) 40 mg PO [facility] Stop: 06/08/21 20:59 Last Admin: 05/09/21 22:25 Dose: 40 mg Documented by: [id number] Potassium Chloride (Potassium Chloride Crtab 20 Meq Tabcr) 20 meq [facility] Stop: 06/08/21 08:59 Last Admin: 05/09/21 08:11 Dose: 20 meq Documented by: [id number] Pregabalin (Pregabalin 75 Mg Cap) 75 mg PO [facility] Stop: 06/08/21 20:59 Last Admin: 05/09/21 22:35 Dose: 75 mg Documented by: [id number] Quetiapine Fumarate (Quetiapine Fumarate 150 Mg Tabcr) 150 mg PO [facility] Stop: 06/08/21 20:59 Last Admin: 05/09/21 22:25 Dose: 150 mg Documented by: [id number] Roflumilast (Roflumilast 500 Mcg Tab) 500 [facility]cg [facility] Stop: 06/08/21 08:59 Last Admin: 05/09/21 08:11 Dose: 500 mcg Documented by: [id number] Rosuvastatin Calcium (Rosuvastatin Calcium 10 Mg Tab) 10 mg PO [facility] Stop: 06/08/21 20:59 Last Admin: 05/09/21 22:26 Dose: 10 mg Documented by: [id number] Venlafaxine HCl (Venlafaxine Hcl 37.5 Mg Tab) 37.5 mg [facility] Stop: 06/08/21 08:59 Last Admin: 05/09/21 08:11 Dose: 37.5 mg Documented by: [id number] Vitamin D (Cholecalciferol 1,000 Units 25 Mcg Tab) 1,000 units PO DAILY [facility] Stop: 06/08/21 08:59 Last Admin: 05/09/21 08:12 Dose: 1,000 units Documented by: [id number] Discontinued Medications Sodium Chloride (Nss 1000ml) 1,000 mls @ 250 mls/hr IV .Q4H [facility] Stop: 06/07/21 20:14 Last Admin: 05/09/21 01:15 Dose: Not Given Documented by: [id number] Infusion: 05/09/21 01:14 Dose: 0 mls/hr Documented by: [id number] Admin: 05/08/21 20:22 Dose: 250 mls/hr Documented by: [id number] Magnesium Sulfate/Dextrose (Magnesium Sulfate / D5w) 1 gm in 100 mls @ 100 mls/hr IV NOW STA Stop: 05/08/21 21:32 Last Infusion: 05/08/21 22:03 Dose: 0 mls/hr Documented by: [id number] Admin: 05/08/21 21:02 Dose: 100 mls/hr Documented by: [id number] Potassium Chloride/Sodium Chloride (Normal Saline W/20 Meq Kcl) 20 meq in 1,000 mls @ 80 mls/hr IV .[id number] [facility] Stop: 05/10/21 01:56 Last Infusion: 05/09/21 07:50 Dose: 0 mls/hr Documented by: [id number] Admin: 05/09/21 01:43 Dose: 80 mls/hr Documented by: [id number] Potassium Chloride (Potassium Chloride Crtab 20 Meq Tabcr) 40 meq PO NOW STA Stop: 05/08/21 22:27 Last Admin: 05/08/21 23:24 Dose: 40 meq Documented by: [id number] Medical Decision Making Differential Diagnosis Differential diagnoses includes but is not limited to toxic, metabolic, infectious, traumatic, cardiac, neurologic, hematologic, psychiatric and inflammatory etiologies. Medical Records Attestation: I reviewed the patient's medical records. Home Medications Current Medication List: was personally reviewed by me Laboratory Data Attestation: I reviewed the patient's lab results. Result diagrams: 05/09/21 05:37 05/09/21 05:37 Lab Results 05/08/21 05/08/21 05/08/21 Range/Units 18:41 18:41 21:50 WBC 12.04 H (4.8-10.8) K/uL RBC 3.84 L (4.2-5.4) M/uL Hgb 12.1 (12.0-16.0) g/dL Hct 38.0 (37-47) % MCV 99.0 (80-100) fL MCH 31.5 (25-34) pg MCHC 31.8 L (32-36) g/dL RDW Std Deviation 63.3 H (36.4-46.3) fL RDW Coeff of Gino 17.7 H (11.5-14.5) % Plt Count 320 (130-400) K/uL MPV 10.4 (7.4-10.4) fL Immature Gran % (Auto) 0.6 % Neut % (Auto) 81.2 % Lymph % (Auto) 9.3 % [place] % (Auto) 8.7 % Eos % (Auto) 0.0 % Baso % (Auto) 0.2 % Neut # (Auto) 9.78 H (1.4-6.5) K/uL Lymph # (Auto) 1.12 L (1.2-3.4) K/uL [place] # (Auto) 1.05 H (0.11-0.59) K/uL Eos # (Auto) 0.00 (0-0.5) K/uL Baso # (Auto) 0.02 (0-0.2) K/uL Immature Gran # (Auto) 0.07 H (0.00-0.02) K/uL Sodium 146 H (136-145) mmol/L Potassium 2.8 L (3.5-5.1) mmol/L Chloride 104 (98-107) mmol/L Carbon Dioxide 31 (21-32) mmol/L Anion Gap 10.0 (3-11) BUN 28 H D (7-18) mg/dl Creatinine 1.46 H D (0.6-1.2) mg/dl Est Cr Clr Drug Dosing Not Reportable Est GFR ( Amer) 39.3 ml/min Est GFR (Non-Af Amer) 33.9 ml/min BUN/Creatinine Ratio 18.9 (10-20) Glucose 129 H (70-99) mg/dl Calcium 8.4 L (8.5-10.1) mg/dl Magnesium 1.7 L (1.8-2.4) mg/dl Total Bilirubin 0.6 (0.2-1) mg/dl AST 15 (15-37) U/L ALT 9 L (12-78) U/L Alkaline Phosphatase 72 (45-117) U/L Troponin I 0.099 H* (0-0.045) ng/ml NT-Pro-B Natriuret Pep 5783 H (0-1800) pg/ml Total Protein 6.1 L (6.4-8.2) gm/dl Albumin 2.4 L (3.4-5.0) gm/dl Globulin 3.7 (2.5-4.0) gm/dl Albumin/Globulin Ratio 0.7 L (0.9-2) Lipase 71 L (73-393) U/L TSH 1.500 (0.300-4.500) uIu/ml COVID-19 Eval Order Covid19 at [facility] SARS-CoV-2 (PCR) (Negative) 05/08/21 Range/Units 21:50 WBC (4.8-10.8) K/uL RBC (4.2-5.4) M/uL Hgb (12.0-16.0) g/dL Hct (37-47) % MCV (80-100) fL MCH (25-34) pg MCHC (32-36) g/dL RDW Std Deviation (36.4-46.3) fL RDW Coeff of Gino (11.5-14.5) % Plt Count (130-400) K/uL MPV (7.4-10.4) fL Immature Gran % (Auto) % Neut % (Auto) % Lymph % (Auto) % [place] % (Auto) % Eos % (Auto) % Baso % (Auto) % Neut # (Auto) (1.4-6.5) K/uL Lymph # (Auto) (1.2-3.4) K/uL [place] # (Auto) (0.11-0.59) K/uL Eos # (Auto) (0-0.5) K/uL Baso # (Auto) (0-0.2) K/uL Immature Gran # (Auto) (0.00-0.02) K/uL Sodium (136-145) mmol/L Potassium (3.5-5.1) mmol/L Chloride (98-107) mmol/L Carbon Dioxide (21-32) mmol/L Anion Gap (3-11) BUN (7-18) mg/dl Creatinine (0.6-1.2) mg/dl Est Cr Clr Drug Dosing Est GFR ( Amer) ml/min Est GFR (Non-Af Amer) ml/min BUN/Creatinine Ratio (10-20) Glucose (70-99) mg/dl Calcium (8.5-10.1) mg/dl Magnesium (1.8-2.4) mg/dl Total Bilirubin (0.2-1) mg/dl AST (15-37) U/L ALT (12-78) U/L Alkaline Phosphatase (45-117) U/L Troponin I (0-0.045) ng/ml NT-Pro-B Natriuret Pep (0-1800) pg/ml Total Protein (6.4-8.2) gm/dl Albumin (3.4-5.0) gm/dl Globulin (2.5-4.0) gm/dl Albumin/Globulin Ratio (0.9-2) Lipase (73-393) U/L TSH (0.300-4.500) uIu/ml COVID-19 Eval Order SARS-CoV-2 (PCR) POSITIVE A* (Negative) Imaging Data Radiologist's Impression: Chest X-Ray 05/08/21 20:02 SINGLE VIEW CHEST CLINICAL HISTORY: Change in mental status. FINDINGS: An AP, portable, upright chest radiograph is compared to study dated 04/15/2021. Correlation is made with chest CT dated 08/15/2018. The examination is mildly degraded by portable technique and patient rotation. The cardiomediastinal silhouette is unremarkable noting atherosclerotic calcific ation of the thoracic aorta. Chronic residual thickening is similar to previous. No airspace consolidation or large pleural effusion is identified. No pneumothorax is seen. The skeletal structures are osteopenic. The bony thorax is grossly intact. Cholecystectomy clips are seen in the right upper quadrant. IMPRESSION: No active disease in the chest. ACT 112: Negative or not required by law. Electronically signed by: oDug Mancilla M.D. 05/08/2021 8:[address] 05/08/21 20:02 CT SCAN OF THE BRAIN WITHOUT IV CONTRAST CLINICAL HISTORY: Change in mental status. COMPARISON STUDY: CT of the brain dated 12/22/2012. MRI of the brain dated 02/06/2018. TECHNIQUE: Unenhanced axial CT scan of the brain is performed from the vertex to the skull base. A dose lowering technique was utilized adhering to the principles of ALARA. CT DOSE: 537.48 mGy.cm FINDINGS: Brain parenchyma: There are age-related involutional changes noting moderate patchy subcortical and periventricular microangiopathic change. There is no hemorrhage, mass effect, or evidence of acute territorial ischemia by CT criteria. Chronic lacunar infarcts are noted in the cerebellar hemispheres, the right thalamus, and the left basal ganglia. Aragon-white matter differentiation is preserved. No extra-axial fluid collection is seen. Ventricles, sulci, cisterns: Prominent secondary to involutional change. Intracranial vasculature: There is atherosclerotic calcification of the cavernous carotid and vertebral arteries. Calvarium: Unremarkable. Sinuses and mastoids: There is subtotal opacification of the sphenoid sinuses. The remaining visualized paranasal sinuses are clear. The mastoid air cells are well pneumatized. Orbits: The bony orbits are grossly intact. There are bilateral ocular lens implants. IMPRESSION: 1. There is no hemorrhage, mass effect, or evidence of acute territorial ischemia by CT criteria. 2. Sphenoid sinusitis. ACT 112: Negative or not required by law. Electronically signed by: Doug Mancilla M.D. 05/08/2021 9:05 PM ECG Data Attestation: I personally reviewed and interpreted this ECG as follows: Indication: + altered mental status Rate (beats per minute): 91 Rhythm: + atrial fibrillation ECG Intervals/blocks: + Normal QRS and + Normal QT ECG [place]: + Normal ECG ST segments: + ST depression (I, II, aVF, V4-6) MDM Narrative This is a 81-year-old female who presents to the emergency department with multiple complaints and appears confused and dehydrated admits to having diarrhea and her adult diaper at bedside. Patient with complicated recent history with multiple hospitalizations including hip fracture, subsequent GI bleed, as well as coronavirus. Labs drawn and sent and imaging performed. Patient had no abdominal pain, and the diarrhea had recently been evaluated. No recent evidence of C. difficile. Patient had no focal neuro deficits and CT imaging reassuring. On labs patient found to have hypokalemia, hypomagnesemia, JULIANN, as well as an elevated troponin. I suspect the elevated troponin is secondary to demand ischemia as she was borderline tachycardic which I suspect is secondary to dehydration as well as anxiety. There were no acute EKG changes noted and patient was in atrial fibrillation which is chronic and is the reason for anticoagulation. Patient started on cautious IV fluid rehydration, given oral potassium and started on IV magnesium repletion. I did discuss results with patient and briefly with , and discussed the case with the hospitalist for additional evaluation and management. An order was placed for continuous cardiac monitoring. The monitor shows a rate of _102 with _atrial fibrillation_ rhythm. Impression & Plan Acute kidney injury, Diarrhea, Generalized weakness, Hypokalemia, AMS (altered mental status), Hypomagnesemia Discharge Plan Visit Data Chief Complaint: Dehydration Stated Complaint: WEAKNESS ED Provider: Chetna Adler Discharge Problem: Acute kidney injury, Diarrhea, Generalized weakness, Hypokalemia, AMS (altered mental status), Hypomagnesemia Patient Disposition: Admitted As Inpatient Discharge Instructions Interventions: ED Discharge Assessment Last Done: 05/09/21 00:42 Discharge Problem: Diarrhea Qualifiers: Diarrhea type: unspecified type Qualified Code(s): R19.7 - Diarrhea, unspecified AMS (altered mental status) Qualifiers: Altered mental status type: unspecified Qualified Code(s): R41.82 - Altered mental status, unspecified
[2021-05-09] MEDS ORDERED: NITROGLYCERIN SL 0.4 MG/TAB TAB SL PRN (00:57)
[2021-05-09] MEDS ORDERED: NSS + 20MEQ KCL 20 MEQ/1,000 ML BAG IV SCH (00:57)
[2021-05-09] MEDS ORDERED: IPRATROPIUM BROMIDE/ALBUTEROL respimat INH INH PRN (00:57)
[2021-05-09] MEDS ORDERED: ACETAMINOPHEN 325 MG TAB PO PRN (00:57)
[2021-05-09] MEDS: SODIUM CHLORIDE 0.9% 1000ML 1,000 ML IV SCH (01:15)
[2021-05-09] MEDS: APIXABAN 5 MG TABLET PO SCH ×3 (01:43→22:24)
[2021-05-09] MEDS: METOPROLOL TARTRATE 25 MG TAB PO SCH ×3 (01:43→22:30)
[2021-05-09] MEDS ORDERED: Ipratropium HFA Inhaler (Combivent Respimat P&T Subs) INH PRN ×2 (02:27→02:28)
[2021-05-09] MEDS ORDERED: Albuterol HFA 8 GM Inhaler (Combivent Respimat P&T Subs) INH PRN ×2 (02:27→02:28)
[2021-05-09] MEDS: ONDANSETRON 4 MG OD TAB PO PRN (05:30)
[2021-05-09 06:05] LABS: Basophils # (auto) 0.02 K/uL (0-0.2); Basophils % (auto) 0.2 %; Hematocrit (blood only) 37.4 % (37-47); Hemoglobin 11.5 g/dL (12.0-16.0); Immature Granulocytes # (auto) 0.05 K/uL (0.00-0.02); Immature Granulocytes % (auto) 0.4 %; Lymphocytes % (auto) 14.7 %; Mean Corpuscular Hemoglobin 30.7 pg (25-34); Mean Corpuscular Hgb Conc 30.7 g/dL (32-36); Mean Platelet Volume 9.9 fL (7.4-10.4); Monocytes # (auto) 1.81 K/uL (0.11-0.59); Monocytes % (auto) 14.8 %; Neutrophils # (auto) 8.57 K/uL (1.4-6.5); Neutrophils % (auto) 69.9 %; Nucleated RBC # (auto) 0.02 K/uL (0-0); Nucleated RBC % (auto) 0.1 %; Platelet Count 296 K/uL (130-400); RDW Coefficient of Variation 17.8 % (11.5-14.5); RDW Standard Deviation 64.8 fL (36.4-46.3); Red Blood Count 3.74 M/uL (4.2-5.4); White Blood Count 12.25 K/uL (4.8-10.8)
[2021-05-09 07:02] LABS: Albumin Globulin Ratio 0.7 (0.9-2); Albumin Level 2.2 gm/dl (3.4-5.0); BUN Creatinine Ratio 18.7 (10-20); Bilirubin,Total 0.7 mg/dl (0.2-1); Calcium 8.2 mg/dl (8.5-10.1); Creatinine Clr Calc Pharmacy 25.4 ml/min; Est GFR (African American) 36.5 ml/min; Est GFR (Non-African American) 31.5 ml/min; Globulin 3.3 gm/dl (2.5-4.0); Magnesium 2.2 mg/dl (1.8-2.4); Potassium 3.6 mmol/L (3.5-5.1); Total Protein 5.5 gm/dl (6.4-8.2); Troponin I 0.099 ng/ml (0-0.045)
[2021-05-09] MEDS: lamoTRIgine 100 MG TAB PO SCH (08:11)
[2021-05-09] MEDS: FERROUS GLUCONATE 324 MG TAB PO SCH ×2 (08:11→18:13)
[2021-05-09] MEDS: VENLAFAXINE HCL 37.5 MG TAB PO SCH (08:11)
[2021-05-09] MEDS: ROFLUMILAST 500 MCG TAB PO SCH (08:11)
[2021-05-09] MEDS: ASPIRIN 81 MG ECTAB PO SCH (08:11)
[2021-05-09] MEDS: CHOLECALCIFEROL 1,000 UNITS 25 MCG TAB PO SCH (08:12)
[2021-05-09] MEDS: CYANOCOBALAMIN (VITAMIN B-12) 2,500 MCG TAB.SUBL SL SCH (08:12)
[2021-05-09] MEDS: DEXTROSE 5% 1,000 ML IV SCH ×2 (08:16→20:58)
[2021-05-09] MEDS ORDERED: POTASSIUM CHLORIDE CRTAB 20 MEQ TABCR PO SCH (09:00)
[2021-05-09] MEDS: CHOLESTYRAMINE LIGHT 4 GM PKT PO SCH ×2 (10:47→23:39)
--- NOTE | 2021-05-09 15:09 | Electrocardiogram Report ---
Test Reason : Blood Pressure : / mmHG Vent. Rate : 091 BPM Atrial Rate : 098 BPM P-R Int : 000 ms QRS Dur : 092 ms QT Int : 318 ms P-R-T Axes : 000 037 223 degrees QTc Int : 391 ms Poor data quality, interpretation may be adversely affected Atrial fibrillation Marked ST abnormality, possible inferolateral subendocardial injury Abnormal ECG When compared with ECG of 15-APR-2021 05:34, ST now depressed in Inferior leads ST now depressed in Lateral leads T wave inversion now evident in Inferior leads Nonspecific T wave abnormality now evident in Anterior leads QT has shortened Confirmed by Andrea Bales ([id number]) on 05/09/2021 3:08:55 PM Referred By: REFERRED SELF Confirmed By:Andrea Bales
--- NOTE | 2021-05-09 15:20 | Electrocardiogram Report ---
Test Reason : Blood Pressure : / mmHG Vent. Rate : 094 BPM Atrial Rate : 084 BPM P-R Int : 000 ms QRS Dur : 088 ms QT Int : 370 ms P-R-T Axes : 000 037 238 degrees QTc Int : 462 ms Atrial fibrillation Marked ST abnormality, possible inferolateral subendocardial injury Abnormal ECG When compared with ECG of 08-MAY-2021 18:31, (unconfirmed) T wave inversion no longer evident in Inferior leads Nonspecific T wave abnormality has replaced inverted T waves in Lateral leads QT has lengthened Confirmed by Andrea Bales ([id number]) on 05/09/2021 3:20:00 PM Referred By: REFERRED SELF Confirmed By:Andrea Bales
[2021-05-09] MEDS: DIGOXIN 0.125 MG TAB PO SCH (18:13)
--- NOTE | 2021-05-09 18:16 | Hospitalist Progress Note ---
Date of Service May 09, 2021 Assessment & Plan (1) Diarrhea: Work-up at last admission was C. difficile negative, stool culture negative, and improved with Cipro and Flagyl treatment for nonspecific proctocolitis noted on CT of abdomen pelvis on 04/16 Nurses report that she had 3 bowel movements in the emergency department, but they were of normal character Her symptoms had improved with Imodium and Questran during last admission. Continue loperamide 2 mg p.o. at bedtime. Resume Questran, which is presently not on her medication list and unclear if it was discontinued or dropped off less BM today and when she has them they are more formed (2) Generalized weakness: history of profound weakness with infection and stress was supposed to follow up with [facility] movement disorder will need a single fiber EMG has been tested for myasthenia gravis and Lambert Eaton in the past, negative order PT/OT (3) GERD (gastroesophageal reflux disease): Continue omeprazole 20 mg daily for now (4) Hypothyroid: Is a diagnosis of hypothyroidism, is not on any thyroid hormone replacement (5) Anxiety: Bipolar 1 disorder/Anxiety with depression- Was noted in the past to be contributing to overall symptomatology Continue lamotrigine, pregabalin, quetiapine and venlafaxine (6) Bipolar 1 disorder: See above (7) Depression: See above (8) COPD (chronic obstructive pulmonary disease): Continue as needed duo nebs (9) Atrial fibrillation: Elevated troponin/atrial fibrillation/hypertension- The patient will be admitted to telemetry for serial cardiac enzymes, serial EKG's, cardiac rhythm monitoring. Continue digoxin, Eliquis, metoprolol tartrate and potassium chloride Likely type II, supply demand mismatch no rise and fall, just elevated troponin move to medical floor (10) Hyperlipidemia: Continue rosuvastatin (11) Hypertension: See above (12) COVID-19 virus infection: Patient did have full vaccine in January 2021 Was noted to be positive on 04/10 and 04/25/2021, but was not felt to be need to be treated due to no symptomatology. She again has no symptoms. remove isolation precautions (13) Acute kidney injury: Creatinine 1.46 upon admission, with baseline 0.69. Potassium 2.8 upon admission. Likely brought on by diarrhea and decreased oral intake Received potassium 40 mEq p.o. in the ED. change fluids to D5W due to mild hypernatremia at 147 Cr is still elevated at 1.55 repeat BMP in AM (14) Hypokalemia: up to 3.6 after replacement Admission and Anticipated Discharge Date Admission Date: May 08, 2021 Subjective patient well known to me from prior admission when she had afib with RVR and weakness, colitis she says she was not eating or drinking well, got very weak at [facility] reviewed chart, WBC 12k, Hb 11.5, Na 147, K 3.6, Cr 1.55, BNP 5000, TSH normal removed COVID isolation as she was off isolation last visit moved to medical floor she admits to frequent BM, but more formed no nausea or vomiting, no fever, no chest pain, no dyspnea, no cough admits to profound weakness, depressed mood Review of Systems Review of Systems: All systems reviewed & are unremarkable except as noted in Subjective Physical Exam Constitutional: well developed, + thin and + frail appearing; no acute distress Neck: trachea midline, no thyromegaly Respiratory: normal respiratory effort, lungs clear to auscultation Cardiovascular: Rate/Rhythm: regular rate and + irregularly irregular Heart Sounds: normal S1 and normal S2; no murmur Gastrointestinal (Abdomen): normal bowel sounds, soft, nontender, no hepatosplenomegaly Musculoskeletal: Head/Neck/Chest: normocephalic, head atraumatic and neck supple Extremities: extremities normal to inspection and + abnormal strength (generalized weakness, cannot stand up); no cyanosis, no clubbing and no petechiae Skin: no rashes, warm and dry Neurologic: patellar DTR's 2+ bilat, sensation intact and PERRL, EOMI, accommodation nl, no face palsy, no dysarthria Psychiatric: A+Ox3, euthymic affect Lymphatic: no cervical or axillary lymphadenopathy Results & Data Results & Data ([facility]) Vital Signs (Past 12 Hours) Vital Signs Temp Pulse Pulse Resp BP Pulse Ox 05/09/21 15:16 36.7 C 93 H 22 154/81 H 93 05/09/21 12:37 158/115 H 05/09/21 12:27 36.9 C 90 19 194/96 H 97 05/09/21 07:25 100 H 05/09/21 07:06 36.8 C 113 H 19 131/75 95 Laboratory Results Laboratory Results - last 24 hr 05/08/21 05/08/21 05/08/21 18:41 18:41 21:50 WBC 12.04 H RBC 3.84 L Hgb 12.1 Hct 38.0 MCV 99.0 MCH 31.5 MCHC 31.8 L RDW Std Deviation 63.3 H RDW Coeff of Gino 17.7 H Plt Count 320 MPV 10.4 Immature Gran % (Auto) 0.6 Neut % (Auto) 81.2 Lymph % (Auto) 9.3 [place] % (Auto) 8.7 Eos % (Auto) 0.0 Baso % (Auto) 0.2 Neut # (Auto) 9.78 H Lymph # (Auto) 1.12 L [place] # (Auto) 1.05 H Eos # (Auto) 0.00 Baso # (Auto) 0.02 Immature Gran # (Auto) 0.07 H Absolute Nucleated RBC Nucleated RBC % (auto) Sodium 146 H Potassium 2.8 L Chloride 104 Carbon Dioxide 31 Anion Gap 10.0 BUN 28 H D Creatinine 1.46 H D Est Cr Clr Drug Dosing Not Reportable Est GFR ( Amer) 39.3 Est GFR (Non-Af Amer) 33.9 BUN/Creatinine Ratio 18.9 Glucose 129 H Calcium 8.4 L Magnesium 1.7 L Total Bilirubin 0.6 AST 15 ALT 9 L Alkaline Phosphatase 72 Troponin I 0.099 H* NT-Pro-B Natriuret Pep 5783 H Total Protein 6.1 L Albumin 2.4 L Globulin 3.7 Albumin/Globulin Ratio 0.7 L Lipase 71 L TSH 1.500 Nasal Screen MRSA (PCR) COVID-19 Eval Order Covid19 at [facility] SARS-CoV-2 (PCR) 05/08/21 05/09/21 05/09/21 21:50 04:02 05:37 WBC 12.25 H RBC 3.74 L Hgb 11.5 L Hct 37.4 MCV 100.0 MCH 30.7 MCHC 30.7 L RDW Std Deviation 64.8 H RDW Coeff of Gino 17.8 H Plt Count 296 MPV 9.9 Immature Gran % (Auto) 0.4 Neut % (Auto) 69.9 Lymph % (Auto) 14.7 [place] % (Auto) 14.8 Eos % (Auto) 0.0 Baso % (Auto) 0.2 Neut # (Auto) 8.57 H Lymph # (Auto) 1.80 [place] # (Auto) 1.81 H Eos # (Auto) 0.00 Baso # (Auto) 0.02 Immature Gran # (Auto) 0.05 H Absolute Nucleated RBC 0.02 H Nucleated RBC % (auto) 0.1 Sodium Potassium Chloride Carbon Dioxide Anion Gap BUN Creatinine Est Cr Clr Drug Dosing Est GFR ( Amer) Est GFR (Non-Af Amer) BUN/Creatinine Ratio Glucose Calcium Magnesium Total Bilirubin AST ALT Alkaline Phosphatase Troponin I NT-Pro-B Natriuret Pep Total Protein Albumin Globulin Albumin/Globulin Ratio Lipase TSH Nasal Screen MRSA (PCR) Negative COVID-19 Eval Order SARS-CoV-2 (PCR) POSITIVE A* 05/09/21 05/09/21 05:37 12:55 WBC RBC Hgb Hct MCV MCH MCHC RDW Std Deviation RDW Coeff of Gino Plt Count MPV Immature Gran % (Auto) Neut % (Auto) Lymph % (Auto) [place] % (Auto) Eos % (Auto) Baso % (Auto) Neut # (Auto) Lymph # (Auto) [place] # (Auto) Eos # (Auto) Baso # (Auto) Immature Gran # (Auto) Absolute Nucleated RBC Nucleated RBC % (auto) Sodium 147 H Potassium 3.6 D Chloride 109 H Carbon Dioxide 33 H Anion Gap 5.0 BUN 29 H Creatinine 1.55 H Est Cr Clr Drug Dosing 25.4 Est GFR ( Amer) 36.5 Est GFR (Non-Af Amer) 31.5 BUN/Creatinine Ratio 18.7 Glucose 97 Calcium 8.2 L Magnesium 2.2 Total Bilirubin 0.7 AST 15 ALT 9 L Alkaline Phosphatase 64 Troponin I 0.099 H* 0.083 H* NT-Pro-B Natriuret Pep Total Protein 5.5 L Albumin 2.2 L Globulin 3.3 Albumin/Globulin Ratio 0.7 L Lipase TSH Nasal Screen MRSA (PCR) COVID-19 Eval Order SARS-CoV-2 (PCR) Medications Administered Current Inpatient Medications Acetaminophen (Acetaminophen 325 Mg Tab) 650 mg PO Q4H PRN PRN Reason: Pain or Fever Stop: 06/08/21 00:56 Albuterol (Albuterol Hfa 8 Gm Inhaler (Combivent Respimat P&T Subs)) 2 puffs INH Q6H PRN PRN Reason: Shortness Of Breath Stop: 06/08/21 02:27 Apixaban (Apixaban 5 Mg Tablet) 5 mg PO BID [facility] Stop: 06/08/21 00:56 Last Admin: 05/09/21 08:21 Dose: 5 mg Documented by: Aspirin (Aspirin 81 Mg Ectab) 81 mg PO DAILY [facility] Stop: 06/08/21 08:59 Last Admin: 05/09/21 08:11 Dose: 81 mg Documented by: Cholestyramine Resin (Cholestyramine Light 4 Gm Pkt) 4 gm PO BID@1000,2200 [facility] Stop: 06/08/21 09:59 Last Admin: 05/09/21 10:47 Dose: 4 gm Documented by: Cyanocobalamin (Cyanocobalamin (Vitamin B-12) 2,500 Mcg Tab.Subl) 5,000 mcg SL DAILY [facility] Stop: 06/08/21 08:59 Last Admin: 05/09/21 08:12 Dose: 5,000 mcg Documented by: Digoxin (Digoxin 0.125 Mg Tab) 0.125 mg PO DAILY@1600 [facility] Stop: 06/08/21 15:59 Last Admin: 05/09/21 18:13 Dose: Not Given Documented by: Ferrous Gluconate (Ferrous Gluconate 324 Mg Tab) 324 mg PO BIDM [facility] Stop: 06/08/21 07:59 Last Admin: 05/09/21 18:13 Dose: Not Given Documented by: Dextrose (D5w) 1,000 mls @ 80 mls/hr IV .[id number] [facility] Stop: 06/08/21 07:44 Last Admin: 05/09/21 08:16 Dose: 80 mls/hr Documented by: Ipratropium Anderson (Ipratropium Hfa Inhaler (Combivent Respimat P&T Subs)) 2 puffs INH Q6R PRN PRN Reason: Shortness Of Breath Stop: 06/08/21 02:27 Lamotrigine (Lamotrigine 100 Mg Tab) 150 mg PO QAM [facility] Stop: 06/08/21 08:59 Last Admin: 05/09/21 08:11 Dose: 150 mg Documented by: Loperamide HCl (Loperamide Hcl 2 Mg Cap) 2 mg PO HS [facility] Stop: 06/08/21 20:59 Metoprolol Tartrate (Metoprolol Tartrate 25 Mg Tab) 25 mg PO BID [facility] Stop: 06/08/21 00:56 Last Admin: 05/09/21 08:10 Dose: 25 mg Documented by: Nitroglycerin (Nitroglycerin Sl 0.4 Mg/Tab Tab) 0.4 mg SL UD PRN PRN Reason: Angina Stop: 06/08/21 00:56 Ondansetron HCl (Ondansetron 4 Mg Od Tab) 4 mg PO Q8H PRN PRN Reason: nausea and vomiting Stop: 06/08/21 00:56 Pantoprazole Sodium (Pantoprazole 40 Mg Tab) 40 mg PO [facility] Stop: 06/08/21 20:59 Potassium Chloride (Potassium Chloride Crtab 20 Meq Tabcr) [facility] Stop: 06/08/21 08:59 Last Admin: 05/09/21 08:11 Dose: 20 meq Documented by: Pregabalin (Pregabalin 75 Mg Cap) 75 mg PO [facility] Stop: 06/08/21 20:59 Quetiapine Fumarate (Quetiapine Fumarate 150 Mg Tabcr) 150 mg PO [facility] Stop: 06/08/21 20:59 Roflumilast (Roflumilast 500 Mcg Tab) [facility] Stop: 06/08/21 08:59 Last Admin: 05/09/21 08:11 Dose: 500 mcg Documented by: Rosuvastatin Calcium (Rosuvastatin Calcium 10 Mg Tab) 10 mg PO [facility] Stop: 06/08/21 20:59 Venlafaxine HCl (Venlafaxine Hcl 37.5 Mg Tab) 37.5 mg PO [facility] Stop: 06/08/21 08:59 Last Admin: 05/09/21 08:11 Dose: 37.5 mg Documented by: Vitamin D (Cholecalciferol 1,000 Units 25 Mcg Tab) 1,000 units PO DAILY [facility] Stop: 06/08/21 08:59 Last Admin: 05/09/21 08:12 Dose: 1,000 units Documented by: PG Care Time/CCT Total # of Minutes Spent Total Time Spent with Patient: Total time spent is greater than 50% in coordination of care (as documented) at patient's floor/unit and/or counseling patient: Coding Level of Care Code 25767 Subseq Hosp Care Lvl 3 Diagnoses Diarrhea R19.7 Generalized weakness R53.1 GERD (gastroesophageal reflux disease) K21.9 Hypothyroid E03.9 Hypothyroidism type: unspecified Anxiety F41.9 Bipolar 1 disorder F31.9 Depression F32.9 COPD (chronic obstructive pulmonary disease) J44.9 COPD type: unspecified COPD Atrial fibrillation I48.91 Hyperlipidemia E78.5 Hyperlipidemia type: unspecified Hypertension I10 Hypertension type: essential hypertension COVID-19 virus infection U07.1 Acute kidney injury N17.9 Hypokalemia E87.6 (1) Hyperlipidemia Hyperlipidemia type: unspecified Qualified Code(s): E78.5 - Hyperlipidemia, unspecified (2) Hypothyroid Hypothyroidism type: unspecified Qualified Code(s): E03.9 - Hypothyroidism, unspecified (3) COPD (chronic obstructive pulmonary disease) COPD type: unspecified COPD Qualified Code(s): J44.9 - Chronic obstructive pulmonary disease, unspecified (4) Hypertension Hypertension type: essential hypertension Qualified Code(s): I10 - Essential (primary) hypertension
[2021-05-09] MEDS: PANTOprazole 40 MG TAB PO SCH (22:25)
[2021-05-09] MEDS: ROSUVASTATIN CALCIUM 10 MG TAB PO SCH (22:26)
[2021-05-09] MEDS: LOPERAMIDE HCL 2 MG CAP PO SCH (22:35)
[2021-05-09] MEDS: PREGABALIN 75 MG CAP PO SCH (22:35)
[2021-05-10 07:21] LABS: Hematocrit (blood only) 32.9 % (37-47); Hemoglobin 10.3 g/dL (12.0-16.0); Mean Corpuscular Hemoglobin 30.6 pg (25-34); Mean Corpuscular Volume 97.6 fL (80-100); Red Blood Count 3.37 M/uL (4.2-5.4); White Blood Count 8.46 K/uL (4.8-10.8)
[2021-05-10 07:22] LABS: Basophils # (auto) 0.01 K/uL (0-0.2); Basophils % (auto) 0.1 %; Eosinophils # (auto) 0.17 K/uL (0-0.5); Immature Granulocytes # (auto) 0.04 K/uL (0.00-0.02); Immature Granulocytes % (auto) 0.5 %; Lymphocytes # (auto) 1.91 K/uL (1.2-3.4); Lymphocytes % (auto) 22.6 %; Mean Corpuscular Hgb Conc 31.3 g/dL (32-36); Mean Platelet Volume 9.7 fL (7.4-10.4); Monocytes # (auto) 1.22 K/uL (0.11-0.59); Monocytes % (auto) 14.4 %; Neutrophils # (auto) 5.11 K/uL (1.4-6.5); Neutrophils % (auto) 60.4 %; Platelet Count 174 K/uL (130-400); RDW Coefficient of Variation 17.6 % (11.5-14.5); RDW Standard Deviation 62.6 fL (36.4-46.3)
[2021-05-10 07:58] LABS: Albumin Level 2.1 gm/dl (3.4-5.0); BUN Creatinine Ratio 17.7 (10-20); Calcium 8.2 mg/dl (8.5-10.1); Est GFR (African American) 38.3 ml/min; Est GFR (Non-African American) 33.1 ml/min; Magnesium 1.9 mg/dl (1.8-2.4); Potassium 3.2 mmol/L (3.5-5.1)
[2021-05-10 08:06] LABS: Albumin Globulin Ratio 0.7 (0.9-2); Bilirubin,Total 0.4 mg/dl (0.2-1); Globulin 2.9 gm/dl (2.5-4.0); Troponin I 0.087 ng/ml (0-0.045)
[2021-05-10] MEDS: METOPROLOL TARTRATE 25 MG TAB PO SCH ×2 (08:58→20:23)
[2021-05-10] MEDS: APIXABAN 5 MG TABLET PO SCH ×2 (08:58→20:23)
[2021-05-10] MEDS: FERROUS GLUCONATE 324 MG TAB PO SCH ×2 (08:59→17:52)
[2021-05-10] MEDS: ASPIRIN 81 MG ECTAB PO SCH (08:59)
[2021-05-10] MEDS: VENLAFAXINE HCL 37.5 MG TAB PO SCH ×2 (08:59→20:22)
[2021-05-10] MEDS: lamoTRIgine 100 MG TAB PO SCH (09:00)
[2021-05-10] MEDS: ROFLUMILAST 500 MCG TAB PO SCH (09:00)
[2021-05-10] MEDS: CHOLECALCIFEROL 1,000 UNITS 25 MCG TAB PO SCH (09:01)
[2021-05-10] MEDS: CYANOCOBALAMIN (VITAMIN B-12) 2,500 MCG TAB.SUBL SL SCH (09:01)
[2021-05-10] MEDS: POTASSIUM CHLORIDE CRTAB 20 MEQ TABCR PO SCH ×2 (11:00→17:52)
[2021-05-10] MEDS: CHOLESTYRAMINE LIGHT 4 GM PKT PO SCH ×2 (11:05→22:06)
--- NOTE | 2021-05-10 12:52 | Hospitalist Progress Note ---
Date of Service May 10, 2021 Assessment & Plan (1) Diarrhea: Work-up at last admission was C. difficile negative, stool culture negative, and improved with Cipro and Flagyl treatment for nonspecific proctocolitis noted on CT of abdomen pelvis on 04/16 Nurses report that she had 3 bowel movements in the emergency department, but they were of normal caliber Her symptoms had improved with Imodium and Questran during last admission. Continue loperamide 2 mg p.o. at bedtime. Resume Questran, which is presently not on her medication list and unclear if it was discontinued or dropped off less BM today and when she has them they are more formed just not eating or drinking well (2) Generalized weakness: history of profound weakness with infection and stress was supposed to follow up with [facility] movement disorder will need a single fiber EMG has been tested for myasthenia gravis and Lambert Eaton in the past, negative order PT/OT not eating enough to give her energy, try to stimulate appetite with Remeron (3) GERD (gastroesophageal reflux disease): Continue omeprazole 20 mg daily for now (4) Hypothyroid: Is a diagnosis of hypothyroidism, is not on any thyroid hormone replacement (5) Anxiety: Bipolar 1 disorder/Anxiety with depression- Was noted in the past to be contributing to overall symptomatology Continue lamotrigine, pregabalin, quetiapine and venlafaxine (increase to 37.5mg BID) and will add Remeron 7.5mg HS (6) Bipolar 1 disorder: See above (7) Depression: See above severe, not eating well, lacks motivation (8) COPD (chronic obstructive pulmonary disease): Continue as needed duo nebs (9) Atrial fibrillation: Elevated troponin/atrial fibrillation/hypertension- The patient will be admitted to telemetry for serial cardiac enzymes, serial EKG's, cardiac rhythm monitoring. Continue digoxin, Eliquis, metoprolol tartrate and potassium chloride Likely type II, supply demand mismatch no rise and fall, just elevated troponin move to medical floor on 05/09 stable today (10) Hyperlipidemia: Continue rosuvastatin (11) Hypertension: See above (12) COVID-19 virus infection: Patient did have full vaccine in January 2021 Was noted to be positive on 04/10 and 04/25/2021, but was not felt to be need to be treated due to no symptomatology. She again has no symptoms. remove isolation precautions (13) Acute kidney injury: Creatinine 1.46 upon admission, with baseline 0.69. Potassium 2.8 upon admission. Likely brought on by diarrhea and decreased oral intake Received potassium 40 mEq p.o. in the ED. Cr improved to 1.4 hypernatremia resolved, Na is 141 since she is not eating/drinking well, will place on D5W 1/2 NSS with 20mEq of KCl at 80cc/hr for one bag (14) Hypokalemia: up to 3.4, continue PO supplement and add KCl in fluids Admission and Anticipated Discharge Date Admission Date: May 08, 2021 Subjective patient still not eating great, had half a piece of toast, half an orange for breakfast, nothing for lunch, not drinking much will give some gentle fluids again today still with frequent BM, unclear what is causing issue reviewed labs, Cr is 1.4, K 3.4, Hb and WBC stable breathing well on 2L, no distress, no cough, no chest pain, heart rate stable will increase her Effexor to 37.5mg BID and add Remeron 7.5mg HS for appetite PT/OT ordered Review of Systems Review of Systems: All systems reviewed & are unremarkable except as noted in Subjective Constitutional: + fatigue, + weakness and + anorexia; no fever Respiratory: no cough and no dyspnea Cardiovascular: no chest pain and no edema Gastrointestinal: + early satiety and + diarrhea/loose stools; no abdominal pain, no nausea, no vomiting and no constipation Physical Exam Constitutional: well developed, + thin and + frail appearing; no acute distress Neck: trachea midline, no thyromegaly Respiratory: normal respiratory effort, lungs clear to auscultation Cardiovascular: Rate/Rhythm: regular rate and + irregularly irregular Heart Sounds: normal S1 and normal S2; no murmur Gastrointestinal (Abdomen): normal bowel sounds, soft, nontender, no hepatosplenomegaly Musculoskeletal: Head/Neck/Chest: normocephalic, head atraumatic and neck supp le Extremities: extremities normal to inspection and + abnormal strength (generalized weakness, cannot stand up); no cyanosis, no clubbing and no petechiae Skin: no rashes, warm and dry Neurologic: patellar DTR's 2+ bilat, sensation intact and PERRL, EOMI, accommodation nl, no face palsy, no dysarthria Psychiatric: A+Ox3, euthymic affect Lymphatic: no cervical or axillary lymphadenopathy Results & Data Results & Data ([facility]) Vital Signs (Past 12 Hours) Vital Signs Temp Pulse Resp BP Pulse Ox 05/10/21 11:46 36.5 C 91 H 18 158/79 H 97 05/10/21 07:58 37.1 C 65 18 111/68 94 05/10/21 03:00 36.8 C 78 20 157/70 H 94 Laboratory Results Laboratory Results - last 24 hr 05/09/21 05/09/21 05/10/21 12:55 21:05 01:26 WBC RBC Hgb Hct MCV MCH MCHC RDW Std Deviation RDW Coeff of Gino Plt Count MPV Immature Gran % (Auto) Neut % (Auto) Lymph % (Auto) [place] % (Auto) Eos % (Auto) Baso % (Auto) Neut # (Auto) Lymph # (Auto) [place] # (Auto) Eos # (Auto) Baso # (Auto) Immature Gran # (Auto) Sodium Potassium Chloride Carbon Dioxide Anion Gap BUN Creatinine Est Cr Clr Drug Dosing Est GFR ( Amer) Est GFR (Non-Af Amer) BUN/Creatinine Ratio Glucose POC Glucose 104 H Calcium Magnesium Total Bilirubin AST ALT Alkaline Phosphatase Troponin I 0.083 H* 0.080 H* Total Protein Albumin Globulin Albumin/Globulin Ratio 05/10/21 05/10/21 06:56 06:56 WBC 8.46 RBC 3.37 L Hgb 10.3 L Hct 32.9 L MCV 97.6 MCH 30.6 MCHC 31.3 L RDW Std Deviation 62.6 H RDW Coeff of Gino 17.6 H Plt Count 174 MPV 9.7 Immature Gran % (Auto) 0.5 Neut % (Auto) 60.4 Lymph % (Auto) 22.6 [place] % (Auto) 14.4 Eos % (Auto) 2.0 Baso % (Auto) 0.1 Neut # (Auto) 5.11 Lymph # (Auto) 1.91 [place] # (Auto) 1.22 H Eos # (Auto) 0.17 Baso # (Auto) 0.01 Immature Gran # (Auto) 0.04 H Sodium 141 Potassium 3.2 L Chloride 105 Carbon Dioxide 31 Anion Gap 5.0 BUN 26 H Creatinine 1.49 H Est Cr Clr Drug Dosing 27.0 Est GFR ( Amer) 38.3 Est GFR (Non-Af Amer) 33.1 BUN/Creatinine Ratio 17.7 Glucose 87 POC Glucose Calcium 8.2 L Magnesium 1.9 Total Bilirubin 0.4 AST 17 ALT 8 L Alkaline Phosphatase 57 Troponin I 0.087 H* Total Protein 5.0 L Albumin 2.1 L Globulin 2.9 Albumin/Globulin Ratio 0.7 L Medications Administered Current Inpatient Medications Acetaminophen (Acetaminophen 325 Mg Tab) 650 mg PO Q4H PRN PRN Reason: Pain or Fever Stop: 06/08/21 00:56 Albuterol (Albuterol Hfa 8 Gm Inhaler (Combivent Respimat P&T Subs)) 2 puffs INH Q6H PRN PRN Reason: Shortness Of Breath Stop: 06/08/21 02:27 Apixaban (Apixaban 5 Mg Tablet) 5 mg PO BID [facility] Stop: 06/08/21 00:56 Last Admin: 05/10/21 08:58 Dose: 5 mg Documented by: Aspirin (Aspirin 81 Mg Ectab) 81 mg PO DAILY [facility] Stop: 06/08/21 08:59 Last Admin: 05/10/21 08:59 Dose: 81 mg Documented by: Cholestyramine Resin (Cholestyramine Light 4 Gm Pkt) 4 gm PO BID@1000,2200 [facility] Stop: 06/08/21 09:59 Last Admin: 05/10/21 11:05 Dose: Not Given Documented by: Cyanocobalamin (Cyanocobalamin (Vitamin B-12) 2,500 Mcg Tab.Subl) 5,000 mcg SL DAILY [facility] Stop: 06/08/21 08:59 Last Admin: 05/10/21 09:01 Dose: 5,000 mcg Documented by: Digoxin (Digoxin 0.125 Mg Tab) 0.125 mg PO DAILY@1600 [facility] Stop: 06/08/21 15:59 Last Admin: 05/09/21 18:13 Dose: Not Given Documented by: Ferrous Gluconate (Ferrous Gluconate 324 Mg Tab) 324 mg PO BIDM [facility] Stop: 06/08/21 07:59 Last Admin: 05/10/21 08:59 Dose: 324 mg Documented by: Potassium Chloride/Dextrose/Sod Cl (D5w And 1/2nss + 20meq Kcl) 20 meq in 1,000 mls @ 80 mls/hr IV .[id number] [facility] Stop: 05/11/21 01:14 Ipratropium [place] (Ipratropium Hfa Inhaler (Combivent Respimat P&T Subs)) 2 puffs INH Q6R PRN PRN Reason: Shortness Of Breath Stop: 06/08/21 02:27 Lamotrigine (Lamotrigine 100 Mg Tab) [address] [facility] Stop: 06/08/21 08:59 Last Admin: 05/10/21 09:00 Dose: 150 mg Documented by: Loperamide HCl (Loperamide Hcl 2 Mg Cap) 2 mg PO [facility] Stop: 06/08/21 20:59 Last Admin: 05/09/21 22:35 Dose: 2 mg Documented by: Metoprolol Tartrate (Metoprolol Tartrate 25 Mg Tab) 25 mg PO BID [facility] Stop: 06/08/21 00:56 Last Admin: 05/10/21 08:58 Dose: 25 mg Documented by: Mirtazapine (Mirtazapine Tab 15 Mg Tab) 7.5 mg PO [facility] Stop: 06/09/21 20:59 Nitroglycerin (Nitroglycerin Sl 0.4 Mg/Tab Tab) 0.4 mg SL UD PRN PRN Reason: Angina Stop: 06/08/21 00:56 Ondansetron HCl (Ondansetron 4 Mg Od Tab) 4 mg PO Q8H PRN PRN Reason: nausea and vomiting Stop: 06/08/21 00:56 Pantoprazole Sodium (Pantoprazole 40 Mg Tab) 40 mg PO [facility] Stop: 06/08/21 20:59 Last Admin: 05/09/21 22:25 Dose: 40 mg Documented by: Potassium Chloride (Potassium Chloride Crtab 20 Meq Tabcr) 20 meq PO BID17 [facility] Stop: 06/09/21 08:59 Pregabalin (Pregabalin 75 Mg Cap) 75 mg PO [facility] Stop: 06/08/21 20:59 Last Admin: 05/09/21 22:35 Dose: 75 mg Documented by: Quetiapine Fumarate (Quetiapine Fumarate 150 Mg Tabcr) 150 mg PO [facility] Stop: 06/08/21 20:59 Last Admin: 05/09/21 22:25 Dose: 150 mg Documented by: Roflumilast (Roflumilast 500 Mcg Tab) [address] [facility] Stop: 06/08/21 08:59 Last Admin: 05/10/21 09:00 Dose: 500 mcg Documented by: Rosuvastatin Calcium (Rosuvastatin Calcium 10 Mg Tab) 10 mg PO HS [facility] Stop: 06/08/21 20:59 Last Admin: 05/09/21 22:26 Dose: 10 mg Documented by: Venlafaxine HCl (Venlafaxine Hcl 37.5 Mg Tab) 37.5 mg PO BID [facility] Stop: 06/09/21 20:59 Vitamin D (Cholecalciferol 1,000 Units 25 Mcg Tab) 1,000 units PO DAILY [facility] Stop: 06/08/21 08:59 Last Admin: 05/10/21 09:01 Dose: 1,000 units Documented by: PG Care Time/CCT Total # of Minutes Spent Total Time Spent with Patient: Total time spent is greater than 50% in coordination of care (as documented) at patient's floor/unit and/or counseling patient: Coding Level of Care Code 34041 Subseq Hosp Care Lvl 3 Diagnoses Diarrhea R19.7 Diarrhea type: unspecified type Generalized weakness R53.1 GERD (gastroesophageal reflux disease) K21.9 Hypothyroid E03.9 Hypothyroidism type: unspecified Anxiety F41.9 Bipolar 1 disorder F31.9 Depression F32.9 COPD (chronic obstructive pulmonary disease) J44.9 COPD type: unspecified COPD Atrial fibrillation I48.91 Hyperlipidemia E78.5 Hyperlipidemia type: unspecified Hypertension I10 Hypertension type: essential hypertension COVID-19 virus infection U07.1 Acute kidney injury N17.9 Hypokalemia E87.6 (1) Diarrhea Diarrhea type: unspecified type Qualified Code(s): R19.7 - Diarrhea, unspecified (2) Hypothyroid Hypothyroidism type: unspecified Qualified Code(s): E03.9 - Hypothyroidism, unspecified (3) COPD (chronic obstructive pulmonary disease) COPD type: unspecified COPD Qualified Code(s): J44.9 - Chronic obstructive pulmonary disease, unspecified (4) Hyperlipidemia Hyperlipidemia type: unspecified Qualified Code(s): E78.5 - Hyperlipidemia, unspecified (5) Hypertension Hypertension type: essential hypertension Qualified Code(s): I10 - Essential (primary) hypertension
[2021-05-10] MEDS ORDERED: D5W AND 1/2NSS + 20MEQ KCL 20 MEQ/1,000 ML BAG IV SCH (13:30)
--- NOTE | 2021-05-10 13:30 | Electrocardiogram Report ---
Test Reason : Blood Pressure : / mmHG Vent. Rate : 075 BPM Atrial Rate : 187 BPM P-R Int : 000 ms QRS Dur : 094 ms QT Int : 352 ms P-R-T Axes : 000 -04 117 degrees QTc Int : 393 ms Atrial fibrillation Moderate voltage criteria for LVH, may be normal variant Possible Inferior infarct , age undetermined Marked ST abnormality, possible anterolateral subendocardial injury Abnormal ECG When compared with ECG of 09-MAY-2021 03:52, Borderline criteria for Inferior infarct are now Present ST no longer depressed in Inferior leads ST more depressed Lateral leads QT has shortened Confirmed by Andrea Bales ([id number]) on 05/10/2021 1:29:34 PM Referred By: REFERRED SELF Confirmed By:Andrea Bales
[2021-05-10] MEDS: DIGOXIN 0.125 MG TAB PO SCH (15:31)
[2021-05-10] MEDS: MIRTAZAPINE TAB 15 MG TAB PO SCH (20:24)
[2021-05-10] MEDS: PANTOprazole 40 MG TAB PO SCH (20:25)
[2021-05-10] MEDS: ROSUVASTATIN CALCIUM 10 MG TAB PO SCH (20:25)
[2021-05-10] MEDS: LOPERAMIDE HCL 2 MG CAP PO SCH (20:28)
[2021-05-10] MEDS: PREGABALIN 75 MG CAP PO SCH (20:28)
[2021-05-11 08:40] LABS: Basophils # (auto) 0.02 K/uL (0-0.2); Basophils % (auto) 0.3 %; Eosinophils # (auto) 0.16 K/uL (0-0.5); Eosinophils % (auto) 2.1 %; Hematocrit (blood only) 29.8 % (37-47); Hemoglobin 9.3 g/dL (12.0-16.0); Immature Granulocytes # (auto) 0.02 K/uL (0.00-0.02); Immature Granulocytes % (auto) 0.3 %; Lymphocytes # (auto) 1.31 K/uL (1.2-3.4); Lymphocytes % (auto) 16.9 %; Mean Corpuscular Hemoglobin 31.2 pg (25-34); Mean Corpuscular Hgb Conc 31.2 g/dL (32-36); Mean Platelet Volume 9.9 fL (7.4-10.4); Monocytes # (auto) 0.76 K/uL (0.11-0.59); Monocytes % (auto) 9.8 %; Neutrophils # (auto) 5.48 K/uL (1.4-6.5); Neutrophils % (auto) 70.6 %; Platelet Count 138 K/uL (130-400); RDW Coefficient of Variation 17.3 % (11.5-14.5); RDW Standard Deviation 63.4 fL (36.4-46.3); Red Blood Count 2.98 M/uL (4.2-5.4); White Blood Count 7.75 K/uL (4.8-10.8)
[2021-05-11] MEDS: FERROUS GLUCONATE 324 MG TAB PO SCH ×2 (08:47→17:55)
[2021-05-11] MEDS: ASPIRIN 81 MG ECTAB PO SCH (08:47)
[2021-05-11] MEDS: CHOLECALCIFEROL 1,000 UNITS 25 MCG TAB PO SCH (08:47)
[2021-05-11] MEDS: METOPROLOL TARTRATE 25 MG TAB PO SCH ×2 (08:47→20:16)
[2021-05-11] MEDS: CYANOCOBALAMIN (VITAMIN B-12) 2,500 MCG TAB.SUBL SL SCH (08:47)
[2021-05-11] MEDS: APIXABAN 5 MG TABLET PO SCH ×2 (08:47→20:17)
[2021-05-11] MEDS: lamoTRIgine 100 MG TAB PO SCH (08:47)
[2021-05-11] MEDS: CHOLESTYRAMINE LIGHT 4 GM PKT PO SCH ×2 (08:48→21:32)
[2021-05-11] MEDS: ROFLUMILAST 500 MCG TAB PO SCH (08:48)
[2021-05-11] MEDS: VENLAFAXINE HCL 37.5 MG TAB PO SCH ×2 (08:48→20:16)
[2021-05-11] MEDS: POTASSIUM CHLORIDE CRTAB 20 MEQ TABCR PO SCH ×2 (08:48→17:54)
[2021-05-11 09:07] LABS: BUN Creatinine Ratio 14.8 (10-20); Calcium 8.3 mg/dl (8.5-10.1); Creatinine Clr Calc Pharmacy 28.1 ml/min; Est GFR (African American) 40.3 ml/min; Est GFR (Non-African American) 34.7 ml/min; Magnesium 2.1 mg/dl (1.8-2.4); Potassium 3.5 mmol/L (3.5-5.1)
[2021-05-11 09:10] LABS: Albumin Globulin Ratio 0.6 (0.9-2); Bilirubin,Total 0.4 mg/dl (0.2-1); Globulin 3.2 gm/dl (2.5-4.0); Total Protein 5.2 gm/dl (6.4-8.2)
[2021-05-11] MEDS: DIGOXIN 0.125 MG TAB PO SCH (15:53)
--- NOTE | 2021-05-11 16:27 | Hospitalist Progress Note ---
Date of Service May 11, 2021 Assessment & Plan (1) Diarrhea: Work-up at last admission was C. difficile negative, stool culture negative, and improved with Cipro and Flagyl treatment for nonspecific proctocolitis noted on CT of abdomen pelvis on 04/16 Nurses report that she had 3 bowel movements in the emergency department, but they were of normal caliber Her symptoms had improved with Imodium and Questran during last admission. Continue loperamide 2 mg p.o. at bedtime. Resume Questran, which is presently not on her medication list and unclear if it was discontinued or dropped off small mucous like stool today, sent for C diff but overall less stools (2) Generalized weakness: history of profound weakness with infection and stress was supposed to follow up with [facility] movement disorder will need a single fiber EMG has been tested for myasthenia gravis and Lambert Eaton in the past, negative order PT/OT not eating enough to give her energy, try to stimulate appetite with Remeron (3) GERD (gastroesophageal reflux disease): Continue omeprazole 20 mg daily for now (4) Hypothyroid: Is a diagnosis of hypothyroidism, is not on any thyroid hormone replacement (5) Anxiety: Bipolar 1 disorder/Anxiety with depression- Was noted in the past to be contributing to overall symptomatology Continue lamotrigine, pregabalin, quetiapine and venlafaxine (increase to 37.5mg BID) and will add Remeron 7.5mg HS (6) Bipolar 1 disorder: See above (7) Depression: See above severe, not eating well, lacks motivation (8) COPD (chronic obstructive pulmonary disease): Continue as needed duo nebs (9) Atrial fibrillation: Elevated troponin/atrial fibrillation/hypertension- The patient will be admitted to telemetry for serial cardiac enzymes, serial EKG's, cardiac rhythm monitoring. Continue digoxin, Eliquis, metoprolol tartrate and potassium chloride Likely type II, supply demand mismatch no rise and fall, just elevated troponin move to medical floor on 05/09 stable today (10) Hyperlipidemia: Continue rosuvastatin (11) Hypertension: See above (12) COVID-19 virus infection: Patient did have full vaccine in January 2021 Was noted to be positive on 04/10 and 04/25/2021, but was not felt to be need to be treated due to no symptomatology. She again has no symptoms. remove isolation precautions (13) Acute kidney injury: Creatinine 1.46 upon admission, with baseline 0.69. Potassium 2.8 upon admission. Likely brought on by diarrhea and decreased oral intake Received potassium 40 mEq p.o. in the ED. Cr remains at 1.4 hypernatremia resolved, Na is 141 if not eating well again tomorrow then consider another IV fluid challenge (14) Hypokalemia: up to 3.5, continue PO supplement Admission and Anticipated Discharge Date Admission Date: May 08, 2021 Subjective patient not eating much, has poor appetite, has some loose stools but far less frequent, like mucous per RN met with her at the bedside, he is encouraging her to eat discussed that her vitals and labs are stable plan to be here over the weekend and go to rehab Review of Systems Review of Systems: All systems reviewed & are unremarkable except as noted in Subjective Constitutional: + fatigue and + weakness Gastrointestinal: + early satiety and + diarrhea/loose stools (mucous like stools); no abdominal pain, no nausea, no vomiting and no constipation Physical Exam Constitutional: well developed, + thin and + frail appearing; no acute distress Neck: trachea midline, no thyromegaly Respiratory: normal respiratory effort, lungs clear to auscultation Cardiovascular: Rate/Rhythm: regular rate and + irregularly irregular Heart Sounds: normal S1 and normal S2; no murmur Gastrointestinal (Abdomen): normal bowel sounds, soft, nontender, no hepatosplenomegaly Musculoskeletal: Head/Neck/Chest: normocephalic, head atraumatic and neck supple Extremities: extremities normal to inspection and + abnormal strength (generalized weakness, cannot stand up); no cyanosis, no clubbing and no petechiae Skin: no rashes, warm and dry Neurologic: patellar DTR's 2+ bilat, sensation intact and PERRL, EOMI, accommodation nl, no face palsy, no dysarthria Psychiatric: A+Ox3, euthymic affect Lymphatic: no cervical or axillary lymphadenopathy Results & Data Results & Data ([facility]) Vital Signs (Past 12 Hours) Vital Signs Temp Pulse Pulse Resp BP Pulse Ox 05/11/21 15:53 79 05/11/21 14:07 36.6 C 67 18 108/65 98 05/11/21 11:12 36.5 C 77 18 104/59 L 98 05/11/21 07:23 74 05/11/21 07:03 36.4 C L 82 18 121/67 95 Laboratory Results Laboratory Results - last 24 hr 05/11/21 05/11/21 08:27 08:27 WBC 7.75 RBC 2.98 L Hgb 9.3 L Hct 29.8 L MCV 100.0 MCH 31.2 MCHC 31.2 L RDW Std Deviation 63.4 H RDW Coeff of Gino 17.3 H Plt Count 138 MPV 9.9 Immature Gran % (Auto) 0.3 Neut % (Auto) 70.6 Lymph % (Auto) 16.9 [place] % (Auto) 9.8 Eos % (Auto) 2.1 Baso % (Auto) 0.3 Neut # (Auto) 5.48 Lymph # (Auto) 1.31 [place] # (Auto) 0.76 H Eos # (Auto) 0.16 Baso # (Auto) 0.02 Immature Gran # (Auto) 0.02 Sodium 143 Potassium 3.5 Chloride 109 H Carbon Dioxide 30 Anion Gap 4.0 BUN 21 H Creatinine 1.43 H Est Cr Clr Drug Dosing 28.1 Est GFR ( Amer) 40.3 Est GFR (Non-Af Amer) 34.7 BUN/Creatinine Ratio 14.8 Glucose 96 Calcium 8.3 L Magnesium 2.1 Total Bilirubin 0.4 AST 25 ALT 11 L Alkaline Phosphatase 61 Total Protein 5.2 L Albumin 2.0 L Globulin 3.2 Albumin/Globulin Ratio 0.6 L Medications Administered Current Inpatient Medications Acetaminophen (Acetaminophen 325 Mg Tab) 650 mg PO Q4H PRN PRN Reason: Pain or Fever Stop: 06/08/21 00:56 Albuterol (Albuterol Hfa 8 Gm Inhaler (Combivent Respimat P&T Subs)) 2 puffs INH Q6H PRN PRN Reason: Shortness Of Breath Stop: 06/08/21 02:27 Apixaban (Apixaban 5 Mg Tablet) 5 mg PO BID [facility] Stop: 06/08/21 00:56 Last Admin: 05/11/21 08:47 Dose: 5 mg Documented by: Aspirin (Aspirin 81 Mg Ectab) 81 mg PO DAILY [facility] Stop: 06/08/21 08:59 Last Admin: 05/11/21 08:47 Dose: 81 mg Documented by: Cholestyramine Resin (Cholestyramine Light 4 Gm Pkt) 4 gm PO BID@1000,2200 [facility] Stop: 06/08/21 09:59 Last Admin: 05/11/21 08:48 Dose: Not Given Documented by: Cyanocobalamin (Cyanocobalamin (Vitamin B-12) 2,500 Mcg Tab.Subl) 5,000 mcg SL DAILY [facility] Stop: 06/08/21 08:59 Last Admin: 05/11/21 08:47 Dose: 5,000 mcg Documented by: Digoxin (Digoxin 0.125 Mg Tab) 0.125 mg PO DAILY@1600 [facility] Stop: 06/08/21 15:59 Last Admin: 05/11/21 15:53 Dose: 0.125 mg Documented by: Ferrous Gluconate (Ferrous Gluconate 324 Mg Tab) 324 mg PO BIDM [facility] Stop: 06/08/21 07:59 Last Admin: 05/11/21 08:47 Dose: 324 mg Documented by: Ipratropium [place] (Ipratropium Hfa Inhaler (Combivent Respimat P&T Subs)) 2 puffs INH Q6R PRN PRN Reason: Shortness Of Breath Stop: 06/08/21 02:27 Lamotrigine (Lamotrigine 100 Mg Tab) 150 mg PO QAM [facility] Stop: 06/08/21 08:59 Last Admin: 05/11/21 08:47 Dose: 150 mg Documented by: Loperamide HCl (Loperamide Hcl 2 Mg Cap) 2 mg PO HS [facility] Stop: 06/08/21 20:59 Last Admin: 05/10/21 20:28 Dose: 2 mg Documented by: Metoprolol Tartrate (Metoprolol Tartrate 25 Mg Tab) 25 mg PO BID [facility] Stop: 06/08/21 00:56 Last Admin: 05/11/21 08:47 Dose: 25 mg Documented by: Mirtazapine (Mirtazapine Tab 15 Mg Tab) 7.5 mg PO [facility] Stop: 06/09/21 20:59 Last Admin: 05/10/21 20:24 Dose: 7.5 mg Documented by: Nitroglycerin (Nitroglycerin Sl 0.4 Mg/Tab Tab) 0.4 mg SL UD PRN PRN Reason: Angina Stop: 06/08/21 00:56 Ondansetron HCl (Ondansetron 4 Mg Od Tab) 4 mg PO Q8H PRN PRN Reason: nausea and vomiting Stop: 06/08/21 00:56 Pantoprazole Sodium (Pantoprazole 40 Mg Tab) 40 mg PO [facility] Stop: 06/08/21 20:59 Last Admin: 05/10/21 20:25 Dose: 40 mg Documented by: Potassium Chloride (Potassium Chloride Crtab 20 Meq Tabcr) 20 meq PO BID17 [facility] Stop: 06/09/21 08:59 Last Admin: 05/11/21 08:48 Dose: 20 meq Documented by: Pregabalin (Pregabalin 75 Mg Cap) 75 mg PO HS [facility] Stop: 06/08/21 20:59 Last Admin: 05/10/21 20:28 Dose: 75 mg Documented by: Quetiapine Fumarate (Quetiapine Fumarate 150 Mg Tabcr) 150 mg PO [facility] Stop: 06/08/21 20:59 Last Admin: 05/10/21 20:25 Dose: 150 mg Documented by: Roflumilast (Roflumilast 500 Mcg Tab) 500 mcg PO QAM [facility] Stop: 06/08/21 08:59 Last Admin: 05/11/21 08:48 Dose: 500 mcg Documented by: Rosuvastatin Calcium (Rosuvastatin Calcium 10 Mg Tab) 10 mg PO [facility] Stop: 06/08/21 20:59 Last Admin: 05/10/21 20:25 Dose: 10 mg Documented by: Venlafaxine HCl (Venlafaxine Hcl 37.5 Mg Tab) 37.5 mg PO BID [facility] Stop: 06/09/21 20:59 Last Admin: 05/11/21 08:48 Dose: 37.5 mg Documented by: Vitamin D (Cholecalciferol 1,000 Units 25 Mcg Tab) 1,000 units PO DAILY [facility] Stop: 06/08/21 08:59 Last Admin: 05/11/21 08:47 Dose: 1,000 units Documented by: PG Care Time/CCT Total # of Minutes Spent Total Time Spent with Patient: Total time spent is greater than 50% in coordination of care (as documented) at patient's floor/unit and/or counseling patient: Coding Level of Care Code 74438 Subseq Hosp Care Lvl 2 Diagnoses Diarrhea R19.7 Diarrhea type: unspecified type Generalized weakness R53.1 GERD (gastroesophageal reflux disease) K21.9 Hypothyroid E03.9 Hypothyroidism type: unspecified Anxiety F41.9 Bipolar 1 disorder F31.9 Depression F32.9 COPD (chronic obstructive pulmonary disease) J44.9 COPD type: unspecified COPD Atrial fibrillation I48.91 Hyperlipidemia E78.5 Hyperlipidemia type: unspecified Hypertension I10 Hypertension type: essential hypertension COVID-19 virus infection U07.1 Acute kidney injury N17.9 Hypokalemia E87.6 (1) Diarrhea Diarrhea type: unspecified type Qualified Code(s): R19.7 - Diarrhea, unspecified (2) Hyperlipidemia Hyperlipidemia type: unspecified Qualified Code(s): E78.5 - Hyperlipidemia, unspecified (3) Hypothyroid Hypothyroidism type: unspecified Qualified Code(s): E03.9 - Hypothyroidism, unspecified (4) COPD (chronic obstructive pulmonary disease) COPD type: unspecified COPD Qualified Code(s): J44.9 - Chronic obstructive pulmonary disease, unspecified (5) Hypertension Hypertension type: essential hypertension Qualified Code(s): I10 - Essential (primary) hypertension
[2021-05-11] MEDS: PREGABALIN 75 MG CAP PO SCH (20:14)
[2021-05-11] MEDS: ROSUVASTATIN CALCIUM 10 MG TAB PO SCH (20:16)
[2021-05-11] MEDS: MIRTAZAPINE TAB 15 MG TAB PO SCH (20:17)
[2021-05-11] MEDS: PANTOprazole 40 MG TAB PO SCH (20:17)
[2021-05-11] MEDS: LOPERAMIDE HCL 2 MG CAP PO SCH (20:20)
[2021-05-12] MEDS: POTASSIUM CHLORIDE CRTAB 20 MEQ TABCR PO SCH ×2 (09:52→17:48)
[2021-05-12] MEDS: CHOLECALCIFEROL 1,000 UNITS 25 MCG TAB PO SCH (09:52)
[2021-05-12] MEDS: METOPROLOL TARTRATE 25 MG TAB PO SCH ×2 (09:52→19:50)
[2021-05-12] MEDS: CYANOCOBALAMIN (VITAMIN B-12) 2,500 MCG TAB.SUBL SL SCH (09:52)
[2021-05-12] MEDS: lamoTRIgine 100 MG TAB PO SCH (09:53)
[2021-05-12] MEDS: FERROUS GLUCONATE 324 MG TAB PO SCH ×2 (09:53→17:48)
[2021-05-12] MEDS: APIXABAN 5 MG TABLET PO SCH ×2 (09:53→19:46)
[2021-05-12] MEDS: ROFLUMILAST 500 MCG TAB PO SCH (09:54)
[2021-05-12] MEDS: ASPIRIN 81 MG ECTAB PO SCH (09:54)
[2021-05-12] MEDS: VENLAFAXINE HCL 37.5 MG TAB PO SCH ×2 (09:54→19:48)
[2021-05-12] MEDS: CHOLESTYRAMINE LIGHT 4 GM PKT PO SCH ×2 (11:18→21:44)
[2021-05-12 12:14] LABS: Hematocrit (blood only) 30.2 % (37-47); Hemoglobin 9.3 g/dL (12.0-16.0); Mean Corpuscular Hemoglobin 30.6 pg (25-34); Mean Corpuscular Hgb Conc 30.8 g/dL (32-36); Mean Corpuscular Volume 99.3 fL (80-100); Mean Platelet Volume 10.3 fL (7.4-10.4); Platelet Count 136 K/uL (130-400); RDW Coefficient of Variation 17.1 % (11.5-14.5); RDW Standard Deviation 61.1 fL (36.4-46.3); Red Blood Count 3.04 M/uL (4.2-5.4); White Blood Count 7.07 K/uL (4.8-10.8)
[2021-05-12] MEDS ORDERED: DEXTROSE 5% 1,000 ML IV SCH (12:15)
[2021-05-12 12:40] LABS: BUN Creatinine Ratio 14.6 (10-20); Calcium 8.1 mg/dl (8.5-10.1); Creatinine Clr Calc Pharmacy 33.4 ml/min; Est GFR (African American) 49.8 ml/min; Potassium 4.6 mmol/L (3.5-5.1)
--- NOTE | 2021-05-12 13:23 | Electrocardiogram Report ---
Test Reason : Blood Pressure : / mmHG Vent. Rate : 046 BPM Atrial Rate : 312 BPM P-R Int : 000 ms QRS Dur : 104 ms QT Int : 380 ms P-R-T Axes : 000 039 078 degrees QTc Int : 332 ms Atrial fibrillation with slow ventricular response Marked ST abnormality, possible inferolateral subendocardial injury Abnormal ECG When compared with ECG of 10-MAY-2021 05:41, Vent. rate has decreased BY 29 BPM Borderline criteria for Inferior infarct are no longer Present Non-specific change in ST segment in Inferior leads T wave inversion no longer evident in Anterior leads Confirmed by Andrea Bales ([id number]) on 05/12/2021 1:23:21 PM Referred By: REFERRED SELF Confirmed By:Andrea Bales
--- NOTE | 2021-05-12 15:43 | Hospitalist Progress Note ---
Date of Service May 12, 2021 Assessment & Plan (1) Anorexia: main issue, not eating at all, maybe two bites today gave her another liter of D5W no response to Effexor, Remeron 7.5mg will add on Marinol 2.5mg BID and titrate upward to see if we can get a response her and I tell her every day that she needs to eat she denies abdominal pain, nausea likely that depressed mood playing a big role (2) Atrial fibrillation: Continue digoxin, Eliquis, metoprolol tartrate and potassium chloride bradycardia today, could be tachybrady syndrome, HR in 40's, no symptoms EKG showed afib with slow AV conduction digoxin is 1.8, will hold Digoxin reduce metoprolol to 12.5mg BID and watch HR (3) Acute kidney injury: Creatinine 1.46 upon admission, with baseline 0.69. Potassium 2.8 upon admission. Likely brought on by diarrhea and decreased oral intake Received potassium 40 mEq p.o. in the ED. Cr improved to 1.2, will give more fluids today hypernatremia resolved, Na is 144 (4) Hypokalemia: up to 4.6, stop PO supplement (5) Diarrhea: Work-up at last admission was C. difficile negative, stool culture negative, and improved with Cipro and Flagyl treatment for nonspecific proctocolitis noted on CT of abdomen pelvis on 04/16 Nurses report that she had 3 bowel movements in the emergency department, but they were of normal caliber Her symptoms had improved with Imodium and Questran during last admission. Continue loperamide 2 mg p.o. at bedtime. Resume Questran, which is presently not on her medication list and unclear if it was discontinued or dropped off small mucous like stool today, sent for C diff - NEGATIVE but overall less stools (6) Generalized weakness: history of profound weakness with infection and stress was supposed to follow up with [facility] movement disorder will need a single fiber EMG has been tested for myasthenia gravis and Lambert Eaton in the past, negative order PT/OT not eating enough to give her energy, try to stimulate appetite with Remeron and Marinol (7) GERD (gastroesophageal reflux disease): Continue omeprazole 20 mg daily for now (8) Hypothyroid: Is a diagnosis of hypothyroidism, is not on any thyroid hormone replacement (9) Anxiety: Bipolar 1 disorder/Anxiety with depression- Was noted in the past to be contributing to overall symptomatology Continue lamotrigine, pregabalin, quetiapine and venlafaxine (increase to 37.5mg BID) and will add Remeron 7.5mg HS (10) Bipolar 1 disorder: See above (11) Depression: See above severe, not eating well, lacks motivation continue Effexor, Remeron (12) COPD (chronic obstructive pulmonary disease): Continue as needed duo nebs (13) Hyperlipidemia: Continue rosuvastatin (14) Hypertension: See above (15) COVID-19 virus infection: Patient did have full vaccine in January 2021 Was noted to be positive on 04/10 and 04/25/2021, but was not felt to be need to be treated due to no symptomatology. She again has no symptoms. remove isolation precautions Admission and Anticipated Discharge Date Admission Date: May 08, 2021 Subjective patient still very fatigued and weak, although she was able to walk to the window and then out the door with therapy not having diarrhea, C diff was negative no appetite at all, ate maybe two bites all day, very concerning at this point, spoke with her about this at the bedside will try Marinol as she fails to improve late morning she was bradycardic with rates in 40s, laying in bed, no symptoms EKG with atrial fibrillation with slow AV conduction checked Digoxin level, 1.8, will hold digoxin and reduce metoprolol to 12.5mg BID d/w Dr. Bales, appreciate his input Review of Systems Review of Systems: All systems reviewed & are unremarkable except as noted in Subjective Physical Exam Constitutional: well developed, + thin and + frail appearing; no acute distress Neck: trachea midline, no thyromegaly Respiratory: normal respiratory effort, lungs clear to auscultation Cardiovascular: Rate/Rhythm: + bradycardic and + irregularly irregular Heart Sounds: normal S1 and normal S2; no murmur Gastrointestinal (Abdomen): normal bowel sounds, soft, nontender, no hepatosplenomegaly Musculoskeletal: Head/Neck/Chest: normocephalic, head atraumatic and neck supple Extremities: extremities normal to inspection and + abnormal strength (generalized weakness, cannot stand up); no cyanosis, no clubbing and no petechiae Skin: no rashes, warm and dry Neurologic: patellar DTR's 2+ bilat, sensation intact and PERRL, EOMI, accommodation nl, no face palsy, no dysarthria Psychiatric: Orientation: alert and oriented x 3 Affect: + depressed affect Mood: + depressed mood Lymphatic: no cervical or axillary lymphadenopathy Results & Data Results & Data ([facility]) Vital Signs (Past 12 Hours) Vital Signs Temp Pulse Pulse Resp BP Pulse Ox 05/12/21 10:44 36.6 C 64 18 108/70 97 05/12/21 09:51 81 142/82 H 05/12/21 07:02 36.6 C 64 18 129/69 100 05/12/21 07:00 66 05/12/21 04:00 36.5 C 62 18 148/76 H 95 Laboratory Results Laboratory Results - last 24 hr 05/11/21 05/12/21 05/12/21 Unknown 11:18 11:49 WBC 7.07 RBC 3.04 L Hgb 9.3 L Hct 30.2 L MCV 99.3 MCH 30.6 MCHC 30.8 L RDW Std Deviation 61.1 H RDW Coeff of Gino 17.1 H Plt Count 136 MPV 10.3 Sodium Potassium Chloride Carbon Dioxide Anion Gap BUN Creatinine Est Cr Clr Drug Dosing Est GFR ( Amer) Est GFR (Non-Af Amer) BUN/Creatinine Ratio Glucose Calcium Stl C. diff Tox B Gene TNP Digoxin 1.8 05/12/21 11:49 WBC RBC Hgb Hct MCV MCH MCHC RDW Std Deviation RDW Coeff of Gino Plt Count MPV Sodium 144 Potassium 4.6 D Chloride 113 H Carbon Dioxide 28 Anion Gap 3.0 BUN 18 Creatinine 1.20 Est Cr Clr Drug Dosing 33.4 Est GFR ( Amer) 49.8 Est GFR (Non-Af Amer) 43.0 BUN/Creatinine Ratio 14.6 Glucose 90 Calcium 8.1 L Stl C. diff Tox B Gene Digoxin Medications Administered Current Inpatient Medications Acetaminophen (Acetaminophen 325 Mg Tab) 650 mg PO Q4H PRN PRN Reason: Pain or Fever Stop: 06/08/21 00:56 Albuterol (Albuterol Hfa 8 Gm Inhaler (Combivent Respimat P&T Subs)) 2 puffs INH Q6H PRN PRN Reason: Shortness Of Breath Stop: 06/08/21 02:27 Apixaban (Apixaban 5 Mg Tablet) 5 mg PO BID [facility] Stop: 06/08/21 00:56 Last Admin: 05/12/21 09:53 Dose: 5 mg Documented by: Aspirin (Aspirin 81 Mg Ectab) 81 mg PO DAILY [facility] Stop: 06/08/21 08:59 Last Admin: 05/12/21 09:54 Dose: 81 mg Documented by: Cholestyramine Resin (Cholestyramine Light 4 Gm Pkt) 4 gm PO BID@1000,2200 [facility] Stop: 06/08/21 09:59 Last Admin: 05/12/21 11:18 Dose: 4 gm Documented by: Cyanocobalamin (Cyanocobalamin (Vitamin B-12) 2,500 Mcg Tab.Subl) 5,000 mcg SL DAILY [facility] Stop: 06/08/21 08:59 Last Admin: 05/12/21 09:52 Dose: 5,000 mcg Documented by: Digoxin (Digoxin 0.125 Mg Tab) 0.125 mg PO DAILY@1600 [facility] Stop: 06/08/21 15:59 Last Admin: 05/11/21 15:53 Dose: 0.125 mg Documented by: Ferrous Gluconate (Ferrous Gluconate 324 Mg Tab) 324 mg PO BIDM [facility] Stop: 06/08/21 07:59 Last Admin: 05/12/21 09:53 Dose: 324 mg Documented by: Dextrose (D5w) 1,000 mls @ 80 mls/hr IV .[id number] [facility] Stop: 05/13/21 00:44 Last Admin: 05/12/21 12:15 Dose: 80 mls/hr Documented by: Ipratropium [place] (Ipratropium Hfa Inhaler (Combivent Respimat P&T Subs)) 2 puffs INH Q6R PRN PRN Reason: Shortness Of Breath Stop: 06/08/21 02:27 Lamotrigine (Lamotrigine 100 Mg Tab) 150 mg PO QAM [facility] Stop: 06/08/21 08:59 Last Admin: 05/12/21 09:53 Dose: 150 mg Documented by: Loperamide HCl (Loperamide Hcl 2 Mg Cap) 2 mg PO HS [facility] Stop: 06/08/21 20:59 Last Admin: 05/11/21 20:20 Dose: 2 mg Documented by: Metoprolol Tartrate (Metoprolol Tartrate 25 Mg Tab) 25 mg PO BID [facility] Stop: 06/08/21 00:56 Last Admin: 05/12/21 09:52 Dose: 25 mg Documented by: Mirtazapine (Mirtazapine Tab 15 Mg Tab) 7.5 mg PO HS [facility] Stop: 06/09/21 20:59 Last Admin: 05/11/21 20:17 Dose: 7.5 mg Documented by: Nitroglycerin (Nitroglycerin Sl 0.4 Mg/Tab Tab) 0.4 mg SL UD PRN PRN Reason: Angina Stop: 06/08/21 00:56 Ondansetron HCl (Ondansetron 4 Mg Od Tab) 4 mg PO Q8H PRN PRN Reason: nausea and vomiting Stop: 06/08/21 00:56 Pantoprazole Sodium (Pantoprazole 40 Mg Tab) 40 mg PO [facility] Stop: 06/08/21 20:59 Last Admin: 05/11/21 20:17 Dose: 40 mg Documented by: Potassium Chloride (Potassium Chloride Crtab 20 Meq Tabcr) 20 meq PO BID17 [facility] Stop: 06/09/21 08:59 Last Admin: 05/12/21 09:52 Dose: 20 meq Documented by: Pregabalin (Pregabalin 75 Mg Cap) 75 mg PO [facility] Stop: 06/08/21 20:59 Last Admin: 05/11/21 20:14 Dose: 75 mg Documented by: Quetiapine Fumarate (Quetiapine Fumarate 150 Mg Tabcr) 150 mg PO [facility] Stop: 06/08/21 20:59 Last Admin: 05/11/21 20:15 Dose: 150 mg Documented by: Roflumilast (R[facility]umilast 500 Mcg Tab) [facility] Stop: 06/08/21 08:59 Last Admin: 05/12/21 09:54 Dose: 500 mcg Documented by: Rosuvastatin Calcium (Rosuvastatin Calcium 10 Mg Tab) 10 mg PO [facility] Stop: 06/08/21 20:59 Last Admin: 05/11/21 20:16 Dose: 10 mg Documented by: Venlafaxine HCl (Venlafaxine Hcl 37.5 Mg Tab) 37.5 mg PO BID [facility] Stop: 06/09/21 20:59 Last Admin: 05/12/21 09:54 Dose: 37.5 mg Documented by: Vitamin D (Cholecalciferol 1,000 Units 25 Mcg Tab) 1,000 units PO DAILY [facility] Stop: 06/08/21 08:59 Last Admin: 05/12/21 09:52 Dose: 1,000 units Documented by: PG Care Time/CCT Total # of Minutes Spent Total Time Spent with Patient: Total time spent is greater than 50% in coordination of care (as documented) at patient's floor/unit and/or counseling patient: Coding Level of Care Code 14485 Subseq Hosp Care Lvl 3 Diagnoses Anorexia R63.0 Atrial fibrillation I48.91 Acute kidney injury N17.9 Hypokalemia E87.6 Diarrhea R19.7 Diarrhea type: unspecified type Generalized weakness R53.1 GERD (gastroesophageal reflux disease) K21.9 Hypothyroid E03.9 Hypothyroidism type: unspecified Anxiety F41.9 Bipolar 1 disorder F31.9 Depression F32.9 COPD (chronic obstructive pulmonary disease) J44.9 COPD type: unspecified COPD Hyperlipidemia E78.5 Hyperlipidemia type: unspecified Hypertension I10 Hypertension type: essential hypertension COVID-19 virus infection U07.1 (1) Diarrhea Diarrhea type: unspecified type Qualified Code(s): R19.7 - Diarrhea, unspecified (2) Hyperlipidemia Hyperlipidemia type: unspecified Qualified Code(s): E78.5 - Hyperlipidemia, unspecified (3) Hypothyroid Hypothyroidism type: unspecified Qualified Code(s): E03.9 - Hypothyroidism, unspecified (4) COPD (chronic obstructive pulmonary disease) COPD type: unspecified COPD Qualified Code(s): J44.9 - Chronic obstructive pulmonary disease, unspecified (5) Hypertension Hypertension type: essential hypertension Qualified Code(s): I10 - Essential (primary) hypertension
--- NOTE | 2021-05-12 15:56 | Cardiology Consultation ---
Date of Consultation May 12, 2021 Assessment & Plan (1) Atrial fibrillation: -persistent atrial fibrillation diagnosed during her hospitalization last month. -now with a slow ventricular response. -agree with holding digoxin and lowering metoprolol tartrate dose. -continue Eliquis as you are. -observe on telemetry. (2) Elevated troponin I level: -mild elevation of no clinical concern. (3) CAD (coronary artery disease): (4) Hypertension: -adequate control on current regimen. (5) Hyperlipidemia: -continue rosuvastatin. History of Present Illness Attending Physician: Chago Gould DO History of Present Illness Mrs. Collier is a 80-year-old female admitted on May 08 with failure to thrive and refractory diarrhea. This consultation was ordered to assist in management of her persistent atrial fibrillation now with a slow ventricular response. Of note, patient typically follows with Dr. Gibbs in the outpatient setting. The patient's recent history began on March 07 when she suffered a mechanical fall and fractured her left hip. She had an inter trochanteric nail placed on the 08 of March and was discharged to [facility] on the 11 of March. Unfortunately, the patient developed a left lower extremity DVT and was placed on Lovenox and Coumadin. The patient was eventually discharged from [facility] on March 30. The patient was readmitted on March 31 with nausea, vomiting, and diarrhea. Her stools were heme-positive and her hemoglobin was decreased at 8.1. INR was supratherapeutic at 3.1. The patient eventually had an upper endoscopy which failed to show any abnormalities. Her melanotic appearing stool was felt secondary to her iron supplements. Her anticoagulation was changed to Eliquis at the time of her discharge. The patient was admitted from April 11 through April 25 with [facility]. During that hospitalization, the patient developed atrial fibrillation with a rapid ventricular response. She was placed on intravenous amiodarone, however, never converted to sinus rhythm. Rate control was relatively simple and the patient was asymptomatic. The patient has a longstanding history of coronary artery disease. A cardiac catheterization 2001 noted a totally obstructed right coronary artery with excellent collateral flow. 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 A cardiac catheterization performed in June 2007 noted severe proximal stenosis of the anomalous left circumflex. This was a very small vessel without side branches and medical management was recommended. Currently, patient is resting comfortably in bed without complaints. Past medical and surgical history 1. Coronary artery disease-see above 2. Hypertension 3. Hypercholesterolemia 4. New onset paroxysmal atrial fibrillation-April 10, 2021 5. Left cerebellar CVA 6. COPD 7. GERD 8. Esophageal stricture 9. Hypothyroidism 10. Bipolar disorder 11. Anxiety 12. Colonic polyps 13. DJD 14. Breast carcinoma-lumpectomy and XRT, 2013 15. Obstructive sleep apnea 16. SUKI/BSO 17. Cholecystectomy 18. Bilateral intra-ocular lens implants 19. Tubal ligation Social history and lives with her Quit tobacco use March 2020 Rare alcohol Family history Noncontributory Review of systems A 10 point review systems was undertaken and negative except for that described above. Allergies Allergy/AdvReac Type Severity Reaction Status Date / Time metoclopramide Allergy Intermediate ESSENTIAL Verified 05/08/21 19:53 TREMORS clopidogrel Allergy Mild HIVES Verified 05/08/21 19:53 diazepam Allergy Mild DEPRESSION Verified 05/08/21 19:53 diltiazem Allergy Mild Light Verified 05/08/21 19:53 headed erythromycin base Allergy Mild EES, TAKES Verified 05/08/21 19:53 Z-PACKS W/O RXN gabapentin Allergy Mild States Verified 05/08/21 19:53 hands catch fire latex Allergy Mild rips skin Verified 05/08/21 19:53 off lisinopril Allergy Mild COUGH Verified 05/08/21 19:53 losartan Allergy Mild HIVES Verified 05/08/21 19:53 micafungin Allergy Mild rash Verified 05/08/21 19:53 oxycodone Allergy Mild INC. Verified 05/08/21 19:53 DEPRESSION Penicillins Allergy Mild Diarrhea Verified 05/08/21 19:53 promethazine Allergy Mild TROUBLE Verified 05/08/21 19:53 FOCUSING SPEAKING AT HIGHER DOSES Sulfa (Sulfonamide Allergy Mild SKIN Verified 05/08/21 19:53 Antibiotics) BECOMES PHOTOSENSITIVE AND BECOMES RED bupropion Allergy Unknown unknown Verified 05/08/21 19:53 dicyclomine Allergy Unknown Unknown Verified 05/08/21 19:53 potassium chloride Allergy Unknown Unknown Verified 05/08/21 19:53 sucralfate Allergy Unknown Unknown Verified 05/08/21 19:53 Xdpjwhc-Dbn-Ylo Reductase AdvReac Intermediate Diarrhea Verified 05/08/21 19:53 Inhibitor amoxicillin AdvReac Mild DIARRHEA Verified 05/08/21 19:53 clavulanic acid AdvReac Mild DIARRHEA Verified 05/08/21 19:53 hydrocodone AdvReac Mild "dont like Verified 05/08/21 19:53 how it makes me feel" Home Medications Medication Instructions Recorded Confirmed Type lamotrigine 150 mg PO QAM 01/01/19 05/08/21 History nitroglycerin [Nitrostat] 0.4 mg SUBLINGUAL UD PRN 01/01/19 05/08/21 History quetiapine 150 mg PO HS 01/01/19 05/08/21 History roflumilast 500 mcg PO QAM 01/01/19 05/08/21 History Oxygen Home #1 ea 07/21/20 04/10/21 History cholecalciferol (vitamin D3) 25 25 mcg PO DAILY 01/11/21 05/08/21 History mcg (1,000 unit) capsule cyanocobalamin (vitamin B-12) 5,000 mcg PO DAILY 01/11/21 05/08/21 History 5,000 mcg capsule ipratropium 20 mcg-albuterol 100 2 puff INHALATION Q6H PRN g 01/11/21 05/08/21 History mcg/actuation mist for inhalation rosuvastatin 10 mg tablet 10 mg PO HS 01/11/21 05/08/21 History ferrous gluconate 324 mg PO BIDM #60 tab 03/11/21 05/08/21 Rx ondansetron HCl [Zofran] 4 mg PO Q8H PRN #6 tab 03/11/21 05/08/21 Rx pregabalin 75 mg PO HS #30 cap 03/11/21 05/08/21 Rx Eliquis 5 mg PO BID #30 tab 04/04/21 05/08/21 Rx aspirin 81 mg PO DAILY 30 Days #30 tab 04/25/21 05/08/21 Rx digoxin [Digitek] 125 mcg PO DAILY@1600 30 Days #30 04/25/21 05/08/21 Rx tab loperamide 2 mg PO HS 30 Days #30 cap 04/25/21 05/08/21 Rx metoprolol tartrate 25 mg PO BID 30 Days #60 tab 04/25/21 05/08/21 Rx omeprazole 20 mg PO HS 05/08/21 05/08/21 History potassium chloride 20 meq PO QAM 05/08/21 05/08/21 History venlafaxine 37.5 mg PO QAM 05/08/21 05/08/21 History Patient History Medical History Anemia REASON FOR COLONOSCOPY 07/2019 Atrial fibrillation Atrial fibrillation with rapid ventricular response Bipolar 1 disorder Breast cancer (08/23/14) "Abnormal bilateral mammogram Status post core needle biopsy 08/23/2014 revealing intraductal papilloma on the left Right breast showed invasive ductal carcinoma Status post right lumpectomy and sentinel lymph node biopsy 10/08/2014 Stage [id number] Status post completion of radiation therapy 12/24/2014 utilizing hypo- fractionation received 5000 cGy" Breast cancer, right 2013--stage 1--lumpectomy and radiation Change in vision Chronic obstructive pulmonary disease inhaler daily Degenerative joint disease Depression Elevated troponin I level Fall GERD (gastroesophageal reflux disease) History of colon polyps Hyperlipidemia Hypertension Hypokalemia Hypothyroidism Medical marijuana use Myocardial Infarction "silent" in --follows with Dr. Gibbs On home oxygen therapy 2L N/C at hs Pancreatitis hx of Papilloma of breast left Sleep apnea Temporal arteritis Unstable angina Unstable angina Surgical History History of bilateral cataract extraction History of bilateral tubal ligation History of breast surgery removal of papilloma of left breast History of cardiac cath x3--last ---no stents History of cholecystectomy History of colonoscopy History of esophagogastroduodenoscopy (EGD) History of lumpectomy of right breast History of right breast biopsy malignant History of tooth extraction all teeth removed History of total hysterectomy with bilateral salpingo-oophorectomy (BSO) Family History Grandfather (Paternal) Family history of diabetes mellitus Other No family history of adverse response to anesthesia Social History Smoking Status: Former smoker Cigarettes Per Day: 20 a day; Second Hand Exposure: No; Do You Dip or Chew Tobacco: No; Hx Alcohol Use: No Hx Substance Use: No Preferred Language: [place] Communication Ability: Impaired Prison Librarian Required: No Beliefs That Will Affect Care: None Current Living Situation: Spouse Other Information That Helps Us Care for You: No Feels Safe at Home: Yes Safety Concerns: Feels Safe At This Time Assistive Devices: Oxygen - at Night and Walker Physical Exam Physical Exam: In general is well-developed well-nourished white female no ac oksana distress. HEENT exam is negative. Neck is supple with full carotid upstrokes. There are no obvious bruits. Jugular is pressure is flat at 90. There is no thyromegaly. Cardiovascular exam reveals an irregularly irregular rhythm with distant heart sounds. No obvious murmurs. Lungs are clear without rales, rhonchi or wheeze. Abdomen is soft and nontender without bruits. Extremities reveal intact radial artery pulses bilaterally. There is no peripheral edema. Results & Data ([facility]) Vital Signs (Past 12 Hours) Vital Signs Temp Pulse Pulse Resp BP Pulse Ox 05/12/21 10:44 36.6 C 64 18 108/70 97 05/12/21 09:51 81 142/82 H 05/12/21 07:02 36.6 C 64 18 129/69 100 05/12/21 07:00 66 05/12/21 04:00 36.5 C 62 18 148/76 H 95 Laboratory Results CBC notes hemoglobin of 9.3, hematocrit 30.2, white count 7.07, and platelet count of 232954. Electrolytes note a sodium of 144, potassium 4.6, chloride 113, bicarb 20, BUN 18, creatinine 1.2, and glucose of 90. I level has been mildly elevated and is currently 0.066. Diagnostic Findings EKG notes atrial fibrillation with a slow ventricular response. There was an inferolateral ST abnormality. needle valve operator notes atrial fibrillation with a ventricular response varying between 45 and 65 beats per minute. PG Care Time/CCT Total # of Minutes Spent Total Time Spent with Patient: Total time spent is greater than 50% in coordination of care (as documented) at patient's floor/unit and/or counseling patient: Coding Level of Care Code 21602 Initial Inpt Care Lvl 3 Diagnoses Atrial fibrillation I48.91 Elevated troponin I level R77.8 CAD (coronary artery disease) I25.10 Hypertension I10 Hypertension type: essential hypertension Hyperlipidemia E78.5 Hyperlipidemia type: unspecified (1) Hypertension Hypertension type: essential hypertension Qualified Code(s): I10 - Essential (primary) hypertension (2) Hyperlipidemia Hyperlipidemia type: unspecified Qualified Code(s): E78.5 - Hyperlipidemia, unspecified
[2021-05-12] MEDS: MIRTAZAPINE TAB 15 MG TAB PO SCH (19:47)
[2021-05-12] MEDS: ROSUVASTATIN CALCIUM 10 MG TAB PO SCH (19:49)
[2021-05-12] MEDS: PANTOprazole 40 MG TAB PO SCH (19:50)
[2021-05-12] MEDS: LOPERAMIDE HCL 2 MG CAP PO SCH (19:53)
[2021-05-12] MEDS: PREGABALIN 75 MG CAP PO SCH (21:44)
[2021-05-13 09:11] LABS: BUN Creatinine Ratio 11.3 (10-20); Calcium 8.5 mg/dl (8.5-10.1); Creatinine Clr Calc Pharmacy 35.1 ml/min; Est GFR (African American) 53.5 ml/min; Est GFR (Non-African American) 46.2 ml/min; Potassium 3.6 mmol/L (3.5-5.1)
[2021-05-13] MEDS: METOPROLOL TARTRATE 25 MG TAB PO SCH ×2 (09:24→21:08)
[2021-05-13] MEDS: CYANOCOBALAMIN (VITAMIN B-12) 2,500 MCG TAB.SUBL SL SCH (09:28)
[2021-05-13] MEDS: ROFLUMILAST 500 MCG TAB PO SCH (09:29)
[2021-05-13] MEDS: lamoTRIgine 100 MG TAB PO SCH (09:29)
[2021-05-13] MEDS: VENLAFAXINE HCL 37.5 MG TAB PO SCH ×2 (09:29→21:07)
[2021-05-13] MEDS: APIXABAN 5 MG TABLET PO SCH ×2 (09:30→21:08)
[2021-05-13] MEDS: ASPIRIN 81 MG ECTAB PO SCH (09:31)
[2021-05-13 09:37] LABS: Hematocrit (blood only) 31.4 % (37-47); Hemoglobin 9.9 g/dL (12.0-16.0); Mean Corpuscular Hemoglobin 31.3 pg (25-34); Mean Corpuscular Hgb Conc 31.5 g/dL (32-36); Mean Corpuscular Volume 99.4 fL (80-100); Mean Platelet Volume 10.6 fL (7.4-10.4); Platelet Count 184 K/uL (130-400); RDW Coefficient of Variation 16.7 % (11.5-14.5); RDW Standard Deviation 60.1 fL (36.4-46.3); Red Blood Count 3.16 M/uL (4.2-5.4); White Blood Count 9.07 K/uL (4.8-10.8)
[2021-05-13] MEDS: DIGOXIN 0.125 MG TAB PO SCH (13:25)
--- NOTE | 2021-05-13 14:25 | Hospitalist Progress Note ---
Date of Service May 13, 2021 Assessment & Plan (1) Anorexia: main issue, not eating at all, maybe two bites today gave her another liter of D5W on 05/12 no response to Effexor will add on Marinol 2.5mg BID and titrate upward to see if we can get a response will increase Remeron to 15mg HS today her and I tell her every day that she needs to eat she denies abdominal pain, nausea likely that depressed mood playing a big role (2) Atrial fibrillation: on eliquis for anticoagulation bradycardia on 05/12, could be tachybrady syndrome, HR in 40's, no symptoms EKG showed afib with slow AV conduction digoxin is 1.8, held digoxin on 05/12, HR up to 70-80s, will resume this afternoon reduced metoprolol to 12.5mg BID (3) Acute kidney injury: Creatinine 1.46 upon admission, with baseline 0.69. Potassium 2.8 upon admission. Likely brought on by diarrhea and decreased oral intake Received potassium 40 mEq p.o. in the ED. Cr improved to 1.1, no IV fluids today hypernatremia resolved, Na is 142 (4) Hypokalemia: 3.6 today, resume supplementation (5) Diarrhea: Work-up at last admission was C. difficile negative, stool culture negative, and improved with Cipro and Flagyl treatment for nonspecific proctocolitis noted on CT of abdomen pelvis on 04/16 Nurses report that she had 3 bowel movements in the emergency department, but they were of normal caliber Her symptoms had improved with Imodium and Questran during last admission. Continue loperamide 2 mg p.o. at bedtime. Resume Questran, which is presently not on her medication list and unclear if it was discontinued or dropped off small mucous like stool today, sent for C diff - NEGATIVE but overall less stools (6) Generalized weakness: history of profound weakness with infection and stress was supposed to follow up with [facility] movement disorder will need a single fiber EMG has been tested for myasthenia gravis and [facility] in the past, negative order PT/OT not eating enough to give her energy, try to stimulate appetite with Remeron and Marinol (7) GERD (gastroesophageal reflux disease): Continue omeprazole 20 mg daily for now (8) Hypothyroid: Is a diagnosis of hypothyroidism, is not on any thyroid hormone replacement (9) Anxiety: Bipolar 1 disorder/Anxiety with depression- Was noted in the past to be contributing to overall symptomatology Continue lamotrigine, pregabalin, quetiapine and venlafaxine (increase to 37.5mg BID) and will add Remeron 7.5mg HS (10) Bipolar 1 disorder: See above (11) Depression: See above severe, not eating well, lacks motivation continue Effexor, Remeron (12) COPD (chronic obstructive pulmonary disease): Continue as needed duo nebs (13) Hyperlipidemia: Continue rosuvastatin (14) Hypertension: See above (15) COVID-19 virus infection: Patient did have full vaccine in January 2021 Was noted to be positive on 04/10 and 04/25/2021, but was not felt to be need to be treated due to no symptomatology. She again has no symptoms. remove isolation precautions Admission and Anticipated Discharge Date Admission Date: May 08, 2021 Subjective patient a little confused today, was angry with me when I walked into the room, asked me where I had been she said that I left her outside and wouldn't let him back inside after a minute she realized who I was she is still not eating very well, discussed that I added Marinol and will incre ase Remeron today no abdominal pain, no nausea/vomiting, no diarrhea no dyspnea, no chest pain HR better on monitor, will resume Digoxin with lower dose of metoprolol labs reviewed, Cr and electrolytes stable, Hb stable, WBC normal Review of Systems Review of Systems: All systems reviewed & are unremarkable except as noted in Subjective Constitutional: + fatigue and + weakness Respiratory: no cough and no dyspnea Cardiovascular: no chest pain Gastrointestinal: + early satiety; no abdominal pain, no nausea, no vomiting, no constipation and no diarrhea/loose stools Physical Exam Constitutional: well developed, + thin and + frail appearing; no acute distress Neck: trachea midline, no thyromegaly Respiratory: normal respiratory effort, lungs clear to auscultation Cardiovascular: Rate/Rhythm: regular rate and + irregularly irregular Heart Sounds: normal S1 and normal S2; no murmur Gastrointestinal (Abdomen): normal bowel sounds, soft, nontender, no hepatosplenomegaly Musculoskeletal: Head/Neck/Chest: normocephalic, head atraumatic and neck supple Extremities: extremities normal to inspection and + abnormal strength (generalized weakness, cannot stand up); no cyanosis, no clubbing and no petechiae Skin: no rashes, warm and dry Neurologic: patellar DTR's 2+ bilat, sensation intact and PERRL, EOMI, accommodation nl, no face palsy, no dysarthria Psychiatric: Orientation: alert and oriented x 3 Affect: + depressed affect Mood: + depressed mood Lymphatic: no cervical or axillary lymphadenopathy Results & Data Results & Data ([facility]) Vital Signs (Past 12 Hours) Vital Signs Temp Pulse Resp BP Pulse Ox 05/13/21 12:00 36.3 C L 78 18 153/71 H 99 05/13/21 08:24 36.4 C L 86 22 164/63 H 98 05/13/21 05:37 177/68 H 05/13/21 04:26 83 05/13/21 03:00 36.8 C 100 H 20 184/84 H 98 Laboratory Results Laboratory Results - last 24 hr 05/13/21 05/13/21 08:36 08:36 WBC 9.07 RBC 3.16 L Hgb 9.9 L Hct 31.4 L MCV 99.4 MCH 31.3 MCHC 31.5 L RDW Std Deviation 60.1 H RDW Coeff of Gino 16.7 H Plt Count 184 MPV 10.6 H Sodium 142 Potassium 3.6 D Chloride 105 Carbon Dioxide 32 Anion Gap 5.0 BUN 13 Creatinine 1.13 Est Cr Clr Drug Dosing 35.1 Est GFR ( Amer) 53.5 Est GFR (Non-Af Amer) 46.2 BUN/Creatinine Ratio 11.3 Glucose 85 Calcium 8.5 Medications Administered Current Inpatient Medications Acetaminophen (Acetaminophen 325 Mg Tab) 650 mg PO Q4H PRN PRN Reason: Pain or Fever Stop: 06/08/21 00:56 Albuterol (Albuterol Hfa 8 Gm Inhaler (Combivent Respimat P&T Subs)) 2 puffs INH Q6H PRN PRN Reason: Shortness Of Breath Stop: 06/08/21 02:27 Apixaban (Apixaban 5 Mg Tablet) 5 mg PO BID [facility] Stop: 06/08/21 00:56 Last Admin: 05/13/21 09:30 Dose: 5 mg Documented by: Aspirin (Aspirin 81 Mg Ectab) 81 mg PO DAILY [facility] Stop: 06/08/21 08:59 Last Admin: 05/13/21 09:31 Dose: 81 mg Documented by: Cyanocobalamin (Cyanocobalamin (Vitamin B-12) 2,500 Mcg Tab.Subl) 5,000 mcg SL DAILY JANINE Stop: 06/08/21 08:59 Last Admin: 05/13/21 09:28 Dose: 5,000 mcg Documented by: Digoxin (Digoxin 0.125 Mg Tab) 0.125 mg PO DAILY@1600 [facility] Stop: 06/08/21 15:59 Last Admin: 05/13/21 13:25 Dose: Not Given Documented by: Dronabinol (Dronabinol 2.5 Mg Cap) 2.5 mg PO BID [facility] Stop: 06/12/21 08:59 Last Admin: 05/13/21 09:41 Dose: 2.5 mg Documented by: Ipratropium [place] (Ipratropium Hfa Inhaler (Combivent Respimat P&T Subs)) 2 puffs INH Q6R PRN PRN Reason: Shortness Of Breath Stop: 06/08/21 02:27 Lamotrigine (Lamotrigine 100 Mg Tab) 150 mg PO QAM [facility] Stop: 06/08/21 08:59 Last Admin: 05/13/21 09:29 Dose: 150 mg Documented by: Loperamide HCl (Loperamide Hcl 2 Mg Cap) 2 mg PO HS [facility] Stop: 06/08/21 20:59 Last Admin: 05/12/21 19:53 Dose: 2 mg Documented by: Metoprolol Tartrate (Metoprolol Tartrate 25 Mg Tab) 12.5 mg PO BID [facility] Stop: 06/11/21 20:59 Last Admin: 05/13/21 09:24 Dose: 12.5 mg Documented by: Mirtazapine (Mirtazapine Tab 15 Mg Tab) 15 mg PO HS [facility] Stop: 06/12/21 20:59 Nitroglycerin (Nitroglycerin Sl 0.4 Mg/Tab Tab) 0.4 mg SL UD PRN PRN Reason: Angina Stop: 06/08/21 00:56 Ondansetron HCl (Ondansetron 4 Mg Od Tab) 4 mg PO Q8H PRN PRN Reason: nausea and vomiting Stop: 06/08/21 00:56 Pantoprazole Sodium (Pantoprazole 40 Mg Tab) 40 mg PO [facility] Stop: 06/08/21 20:59 Last Admin: 05/12/21 19:50 Dose: 40 mg Documented by: Pregabalin (Pregabalin 75 Mg Cap) 75 mg PO HS [facility] Stop: 06/08/21 20:59 Last Admin: 05/12/21 21:44 Dose: Not Given Documented by: Quetiapine Fumarate (Quetiapine Fumarate 150 Mg Tabcr) 150 mg PO [facility] Stop: 06/08/21 20:59 Last Admin: 05/12/21 21:44 Dose: Not Given Documented by: Roflumilast (Roflumilast 500 Mcg Tab) 500 mcg PO QAM [facility] Stop: 06/08/21 08:59 Last Admin: 05/13/21 09:29 Dose: 500 mcg Documented by: Rosuvastatin Calcium (Rosuvastatin Calcium 10 Mg Tab) 10 mg PO HS [facility] Stop: 06/08/21 20:59 Last Admin: 05/12/21 19:49 Dose: 10 mg Documented by: Venlafaxine HCl (Venlafaxine Hcl 37.5 Mg Tab) 37.5 mg PO BID JANINE Stop: 06/09/21 20:59 Last Admin: 05/13/21 09:29 Dose: 37.5 mg Documented by: PG Care Time/CCT Total # of Minutes Spent Total Time Spent with Patient: Total time spent is greater than 50% in coordination of care (as documented) at patient's floor/unit and/or counseling patient: Coding Level of Care Code 81764 Subseq Hosp Care Lvl 3 Diagnoses Anorexia R63.0 Atrial fibrillation I48.91 Acute kidney injury N17.9 Hypokalemia E87.6 Diarrhea R19.7 Diarrhea type: unspecified type Generalized weakness R53.1 GERD (gastroesophageal reflux disease) K21.9 Hypothyroid E03.9 Hypothyroidism type: unspecified Anxiety F41.9 Bipolar 1 disorder F31.9 Depression F32.9 COPD (chronic obstructive pulmonary disease) J44.9 COPD type: unspecified COPD Hyperlipidemia E78.5 Hyperlipidemia type: unspecified Hypertension I10 Hypertension type: essential hypertension COVID-19 virus infection U07.1 (1) Diarrhea Diarrhea type: unspecified type Qualified Code(s): R19.7 - Diarrhea, unspecified (2) Hypothyroid Hypothyroidism type: unspecified Qualified Code(s): E03.9 - Hypothyroidism, unspecified (3) COPD (chronic obstructive pulmonary disease) COPD type: unspecified COPD Qualified Code(s): J44.9 - Chronic obstructive pulmonary disease, unspecified (4) Hyperlipidemia Hyperlipidemia type: unspecified Qualified Code(s): E78.5 - Hyperlipidemia, unspecified (5) Hypertension Hypertension type: essential hypertension Qualified Code(s): I10 - Essential (primary) hypertension
[2021-05-13] MEDS: PANTOprazole 40 MG TAB PO SCH (21:08)
[2021-05-13] MEDS: ROSUVASTATIN CALCIUM 10 MG TAB PO SCH (21:08)
[2021-05-13] MEDS: MIRTAZAPINE TAB 15 MG TAB PO SCH (21:10)
[2021-05-13] MEDS: LOPERAMIDE HCL 2 MG CAP PO SCH (21:14)
[2021-05-13] MEDS: PREGABALIN 75 MG CAP PO SCH (21:14)
[2021-05-14 04:47] LABS: Appearance Urine Cloudy (Clear); Bacteria Urine Automated 2+ (Negative); Bilirubin Urine Negative (Negative); Blood Urine 1+ (Negative); Color Urine Yellow; Epithelial Cell Urine Auto 0-5 /lpf (0-5); Glucose Urine UA Negative (Negative); Ketones Urine Negative (Negative); Leukocyte Esterase Urine 3+ (Negative); Nitrite Urine Negative (Negative); Protein Urine Trace (Negative); RBC Urine Automated 0-4 /hpf (0-4); Specific Gravity Urine 1.011 (1.000-1.030); Urobilinogen Urine Negative (Negative); WBC Urine Automated >30 /hpf (0-5)
[2021-05-14 07:24] LABS: Hematocrit (blood only) 30.9 % (37-47); Hemoglobin 9.5 g/dL (12.0-16.0); Mean Corpuscular Hemoglobin 30.4 pg (25-34); Mean Corpuscular Hgb Conc 30.7 g/dL (32-36); Mean Platelet Volume 10.5 fL (7.4-10.4); Platelet Count 191 K/uL (130-400); RDW Coefficient of Variation 16.9 % (11.5-14.5); RDW Standard Deviation 60.9 fL (36.4-46.3); Red Blood Count 3.12 M/uL (4.2-5.4); White Blood Count 8.53 K/uL (4.8-10.8)
[2021-05-14 07:50] LABS: BUN Creatinine Ratio 10.5 (10-20); Calcium 8.3 mg/dl (8.5-10.1); Creatinine Clr Calc Pharmacy 36.2 ml/min; Est GFR (African American) 56.5 ml/min; Est GFR (Non-African American) 48.8 ml/min; Potassium 3.4 mmol/L (3.5-5.1)
[2021-05-14] MEDS: CYANOCOBALAMIN (VITAMIN B-12) 2,500 MCG TAB.SUBL SL SCH (10:03)
[2021-05-14] MEDS: lamoTRIgine 100 MG TAB PO SCH (10:03)
[2021-05-14] MEDS: APIXABAN 5 MG TABLET PO SCH ×2 (10:03→20:41)
[2021-05-14] MEDS: ROFLUMILAST 500 MCG TAB PO SCH (10:03)
[2021-05-14] MEDS: METOPROLOL TARTRATE 25 MG TAB PO SCH ×2 (10:03→20:39)
[2021-05-14] MEDS: VENLAFAXINE HCL 37.5 MG TAB PO SCH ×2 (10:03→20:41)
[2021-05-14] MEDS: ASPIRIN 81 MG ECTAB PO SCH (10:04)
[2021-05-14] MEDS: POTASSIUM CHLORIDE CRTAB 20 MEQ TABCR PO SCH (10:20)
[2021-05-14] MEDS: FLUCONAZOLE 100 MG/50 ML BAG IV SCH (12:57)
[2021-05-14] MEDS: DIGOXIN 0.125 MG TAB PO SCH (16:34)
[2021-05-14] MEDS: PREGABALIN 75 MG CAP PO SCH (20:39)
[2021-05-14] MEDS: ROSUVASTATIN CALCIUM 10 MG TAB PO SCH (20:39)
[2021-05-14] MEDS: PANTOprazole 40 MG TAB PO SCH (20:40)
[2021-05-14] MEDS: MIRTAZAPINE TAB 15 MG TAB PO SCH (20:41)
[2021-05-14] MEDS: LOPERAMIDE HCL 2 MG CAP PO SCH (20:46)
--- NOTE | 2021-05-14 22:56 | Hospitalist Progress Note ---
Date of Service May 14, 2021 Assessment & Plan (1) Anorexia: main issue, not eating at all, maybe two bites today gave her another liter of D5W on 05/12 no response to Effexor will add on Marinol 2.5mg BID and titrate upward to see if we can get a response will increase Remeron to 15mg HS her and I tell her every day that she needs to eat she denies abdominal pain, nausea likely that depressed mood playing a big role maybe Digoxin is causing anorexia and depression? started this last month will discontinue it consult psychiatry given her complex mental health history (2) Atrial fibrillation: on eliquis for anticoagulation bradycardia on 05/12, could be tachybrady syndrome, HR in 40's, no symptoms EKG showed afib with slow AV conduction digoxin is 1.8, held digoxin on 05/12, HR up to 70-80s reduced metoprolol to 12.5mg BID will now stop Digoxin as it might be contributing to anorexia and depression? monitor rates on tele, can go up on metoprolol if HR goes up (3) Acute kidney injury: Creatinine 1.46 upon admission, with baseline 0.69. Potassium 2.8 upon admission. Likely brought on by diarrhea and decreased oral intake Received potassium 40 mEq p.o. in the ED. Cr improved to baseline, no IV fluids today hypernatremia resolved (4) Hypokalemia: 3.4 today, resume supplementation (5) Diarrhea: Work-up at last admission was C. difficile negative, stool culture negative, and improved with Cipro and Flagyl treatment for nonspecific proctocolitis noted on CT of abdomen pelvis on 04/16 Nurses report that she had 3 bowel movements in the emergency department, but they were of normal caliber Her symptoms had improved with Imodium and Questran during last admission. Continue loperamide 2 mg p.o. at bedtime. Resume Questran, which is presently not on her medication list and unclear if it was discontinued or dropped off small mucous like stool today, sent for C diff - NEGATIVE but overall less stools (6) Generalized weakness: history of profound weakness with infection and stress was supposed to follow up with [place] [facility] movement disorder will need a single fiber EMG has been tested for myasthenia gravis and [facility] Eaton in the past, negative order PT/OT not eating enough to give her energy, try to stimulate appetite with Remeron and Marinol (7) GERD (gastroesophageal reflux disease): Continue omeprazole 20 mg daily for now (8) Hypothyroid: Is a diagnosis of hypothyroidism, is not on any thyroid hormone replacement (9) Anxiety: Bipolar 1 disorder/Anxiety with depression- Was noted in the past to be contributing to overall symptomatology Continue lamotrigine, pregabalin, quetiapine and venlafaxine (increase to 37.5mg BID) and will add Remeron 15mg HS consult psych (10) Bipolar 1 disorder: See above (11) Depression: See above severe, not eating well, lacks motivation continue Effexor, Remeron (12) COPD (chronic obstructive pulmonary disease): Continue as needed duo nebs (13) Hyperlipidemia: Continue rosuvastatin (14) Hypertension: See above (15) COVID-19 virus infection: Patient did have full vaccine in January 2021 Was noted to be positive on 04/10 and 04/25/2021, but was not felt to be need to be treated due to no symptomatology. She again has no symptoms. remove isolation precautions Admission and Anticipated Discharge Date Admission Date: May 08, 2021 Subjective patient sleeping alot, still refuses to eat cannot explain why she won't eat, has not responded to Remeron or Marinol no abdominal pain, no vomiting, no fever, no chest pain, no dyspnea discussed with daughter, appetite has been bad since she started Digoxin last admission side effects of Digoxin are anorexia, depression will stop the Digoxin and monitor heart rate, can go up on Lopressor if needed will also consult psychiatry per family's request updated her at the bedside Review of Systems Review of Systems: All systems reviewed & are unremarkable except as noted in Subjective Psychiatric: + depression, + abnormal sleep pattern (sleeps all day) and + change in appetite (has not eaten in a week) Physical Exam Constitutional: well developed, + thin and + frail appearing; no acute distress Neck: trachea midline, no thyromegaly Respiratory: normal respiratory effort, lungs clear to auscultation Cardiovascular: Rate/Rhythm: regular rate and + irregularly irregular Heart Sounds: normal S1 and normal S2; no murmur Gastrointestinal (Abdomen): normal bowel sounds, soft, nontender, no hepatosplenomegaly Musculoskeletal: Head/Neck/Chest: normocephalic, head atraumatic and neck supple Extremities: extremities normal to inspection and + abnormal strength (generalized weakness, cannot stand up); no cyanosis, no clubbing and no petechiae Skin: no rashes, warm and dry Neurologic: patellar DTR's 2+ bilat, sensation intact and PERRL, EOMI, accommodation nl, no face palsy, no dysarthria Psychiatric: Orientation: alert and oriented x 3 Affect: + depressed affect Mood: + depressed mood Lymphatic: no cervical or axillary lymphadenopathy Results & Data Results & Data ([facility]) Vital Signs (Past 12 Hours) Vital Signs Temp Pulse Pulse Resp BP Pulse Ox 05/14/21 19:04 36.6 C 77 18 145/64 H 98 05/14/21 15:37 36.6 C 88 18 105/62 91 05/14/21 15:19 71 05/14/21 11:44 36.3 C L 68 18 107/62 91 PG Care Time/CCT Total # of Minutes Spent Total Time Spent with Patient: Total time spent is greater than 50% in coordination of care (as documented) at patient's floor/unit and/or counseling patient: Coding Level of Care Code 91346 Subseq Hosp Care Lvl 3 Diagnoses Anorexia R63.0 Atrial fibrillation I48.91 Acute kidney injury N17.9 Hypokalemia E87.6 Diarrhea R19.7 Diarrhea type: unspecified type Generalized weakness R53.1 GERD (gastroesophageal reflux disease) K21.9 Hypothyroid E03.9 Hypothyroidism type: unspecified Anxiety F41.9 Bipolar 1 disorder F31.9 Depression F32.9 COPD (chronic obstructive pulmonary disease) J44.9 COPD type: unspecified COPD Hyperlipidemia E78.5 Hyperlipidemia type: unspecified Hypertension I10 Hypertension type: essential hypertension COVID-19 virus infection U07.1 (1) Diarrhea Diarrhea type: unspecified type Qualified Code(s): R19.7 - Diarrhea, unspecified (2) Hypothyroid Hypothyroidism type: unspecified Qualified Code(s): E03.9 - Hypothyroidism, unspecified (3) COPD (chronic obstructive pulmonary disease) COPD type: unspecified COPD Qualified Code(s): J44.9 - Chronic obstructive pulmonary disease, unspecified (4) Hyperlipidemia Hyperlipidemia type: unspecified Qualified Code(s): E78.5 - Hyperlipidemia, unspecified (5) Hypertension Hypertension type: essential hypertension Qualified Code(s): I10 - Essential (primary) hypertension
[2021-05-15] MEDS: FLUCONAZOLE 100 MG/50 ML BAG IV SCH (08:26)
[2021-05-15] MEDS: POTASSIUM CHLORIDE CRTAB 20 MEQ TABCR PO SCH (08:27)
[2021-05-15] MEDS: VENLAFAXINE HCL 37.5 MG TAB PO SCH ×2 (08:27→21:39)
[2021-05-15] MEDS: APIXABAN 5 MG TABLET PO SCH ×2 (08:27→21:38)
[2021-05-15] MEDS: ASPIRIN 81 MG ECTAB PO SCH (08:28)
[2021-05-15] MEDS: lamoTRIgine 100 MG TAB PO SCH (08:28)
[2021-05-15] MEDS: ROFLUMILAST 500 MCG TAB PO SCH (08:29)
[2021-05-15] MEDS: METOPROLOL TARTRATE 25 MG TAB PO SCH ×2 (08:29→21:37)
[2021-05-15] MEDS: CYANOCOBALAMIN (VITAMIN B-12) 2,500 MCG TAB.SUBL SL SCH (08:31)
[2021-05-15 11:46] LABS: Hematocrit (blood only) 28.8 % (37-47); Hemoglobin 9.1 g/dL (12.0-16.0); Mean Corpuscular Hemoglobin 31.2 pg (25-34); Mean Corpuscular Hgb Conc 31.6 g/dL (32-36); Mean Corpuscular Volume 98.6 fL (80-100); Platelet Count 203 K/uL (130-400); RDW Coefficient of Variation 16.7 % (11.5-14.5); RDW Standard Deviation 60.5 fL (36.4-46.3); Red Blood Count 2.92 M/uL (4.2-5.4); White Blood Count 8.66 K/uL (4.8-10.8)
[2021-05-15 12:27] LABS: Calcium 8.2 mg/dl (8.5-10.1); Creatinine Clr Calc Pharmacy 35.4 ml/min; Est GFR (African American) 55.3 ml/min; Est GFR (Non-African American) 47.7 ml/min; Magnesium 1.8 mg/dl (1.8-2.4); Phosphorus 4.2 mg/dl (2.5-4.9)
[2021-05-15] MEDS: ROSUVASTATIN CALCIUM 10 MG TAB PO SCH (21:37)
[2021-05-15] MEDS: PREGABALIN 75 MG CAP PO SCH (21:37)
[2021-05-15] MEDS: PANTOprazole 40 MG TAB PO SCH (21:38)
[2021-05-15] MEDS: MIRTAZAPINE TAB 15 MG TAB PO SCH (21:39)
[2021-05-15] MEDS: LOPERAMIDE HCL 2 MG CAP PO SCH (21:40)
--- NOTE | 2021-05-15 21:48 | Hospitalist Progress Note ---
Date of Service May 15, 2021 Assessment & Plan (1) Anorexia: main issue, not eating at all, maybe two bites today gave her another liter of D5W on 05/12 no response to Effexor will add on Marinol 2.5mg BID and titrate upward to see if we can get a response will increase Remeron to 15mg HS her and I tell her every day that she needs to eat she denies abdominal pain, nausea likely that depressed mood playing a big role maybe Digoxin is causing anorexia and depression? started this last month will discontinue it consult psychiatry given her complex mental health history will consult [employer] as concern over her decreased oral intake. poor prognosis. (2) Atrial fibrillation: on eliquis for anticoagulation bradycardia on 05/12, could be tachybrady syndrome, HR in 40's, no symptoms EKG showed afib with slow AV conduction digoxin is 1.8, held digoxin on 05/12, HR up to 70-80s reduced metoprolol to 12.5mg BID will now stop Digoxin as it might be contributing to anorexia and depression? monitor rates on tele, can go up on metoprolol if HR goes up (3) Acute kidney injury: Creatinine 1.46 upon admission, with baseline 0.69. Potassium 2.8 upon admission. Likely brought on by diarrhea and decreased oral intake Received potassium 40 mEq p.o. in the ED. Cr improved to baseline, no IV fluids today hypernatremia resolved (4) Hypokalemia: 3.4 today, resume supplementation (5) Diarrhea: Work-up at last admission was C. difficile negative, stool culture negative, and improved with Cipro and Flagyl treatment for nonspecific proctocolitis noted on CT of abdomen pelvis on 04/16 Nurses report that she had 3 bowel movements in the emergency department, but they were of normal caliber Her symptoms had improved with Imodium and Questran during last admission. Continue loperamide 2 mg p.o. at bedtime. Resume Questran, which is presently not on her medication list and unclear if it was discontinued or dropped off small mucous like stool today, sent for C diff - NEGATIVE but overall less stools (6) Generalized weakness: history of profound weakness with infection and stress was supposed to follow up with [place] neurology movement disorder will need a single fiber EMG has been tested for myasthenia gravis and [facility] in the past, negative order PT/OT not eating enough to give her energy, try to stimulate appetite with Remeron and Marinol (7) GERD (gastroesophageal reflux disease): Continue omeprazole 20 mg daily for now (8) Hypothyroid: Is a diagnosis of hypothyroidism, is not on any thyroid hormone replacement (9) Anxiety: Bipolar 1 disorder/Anxiety with depression- Was noted in the past to be contributing to overall symptomatology Continue lamotrigine, pregabalin, quetiapine and venlafaxine (increase to 37.5mg BID) and will add Remeron 15mg HS consult psych (10) Bipolar 1 disorder: See above (11) Depression: See above severe, not eating well, lacks motivation continue Effexor, Remeron (12) COPD (chronic obstructive pulmonary disease): Continue as needed duo nebs (13) Hyperlipidemia: Continue rosuvastatin (14) Hypertension: See above (15) COVID-19 virus infection: Patient did have full vaccine in January 2021 Was noted to be positive on 04/10 and 04/25/2021, but was not felt to be need to be treated due to no symptomatology. She again has no symptoms. remove isolation precautions Admission and Anticipated Discharge Date Admission Date: May 08, 2021 Subjective Patient is drowsy and does not provide much history. Review of Systems Review of Systems: All systems reviewed & are unremarkable except as noted in HPI & below Physical Exam Physical Exam: Constitutional: well developed, + thin and + frail appearing; no acute distress Neck: trachea midline, no thyromegaly Respiratory: normal respiratory effort, lungs clear to auscultation Cardiovascular: Rate/Rhythm: regular rate and + irregularly irregular Heart Sounds: normal S1 and normal S2; no murmur Gastrointestinal (Abdomen): normal bowel sounds, soft, nontender, no hepatosplenomegaly Musculoskeletal: Head/Neck/Chest: normocephalic, head atraumatic and neck supple Extremities: extremities normal to inspection and + abnormal strength (generalized weakness, cannot stand up); no cyanosis, no clubbing and no petechiae Skin: no rashes, warm and dry Neurologic: patellar DTR's 2+ bilat, sensation intact and PERRL, EOMI, accommodation nl, no face palsy, no dysarthria Psychiatric: Orientation: alert and oriented x 3 Affect: + depressed affect Mood: + depressed mood Lymphatic: no cervical or axillary lymphadenopathy Results & Data Results & Data ([facility]) Vital Signs (Past 12 Hours) Vital Signs Temp Pulse Resp BP Pulse Ox 05/15/21 19:00 36.6 C 71 20 130/69 96 05/15/21 15:02 36.6 C 68 18 147/73 H 99 05/15/21 11:11 37.3 C 63 20 98/59 L 94 PG Care Time/CCT Total # of Minutes Spent Total Time Spent with Patient: Total time spent is greater than 50% in coordination of care (as documented) at patient's floor/unit and/or counseling patient: Coding Level of Care Code 36872 Subseq Hosp Care Lvl 3 Diagnoses Anorexia R63.0 Atrial fibrillation I48.91 Acute kidney injury N17.9 Hypokalemia E87.6 Diarrhea R19.7 Diarrhea type: unspecified type Generalized weakness R53.1 GERD (gastroesophageal reflux disease) K21.9 Hypothyroid E03.9 Hypothyroidism type: unspecified Anxiety F41.9 Bipolar 1 disorder F31.9 Depression F32.9 COPD (chronic obstructive pulmonary disease) J44.9 COPD type: unspecified COPD Hyperlipidemia E78.5 Hyperlipidemia type: unspecified Hypertension I10 Hypertension type: essential hypertension COVID-19 virus infection U07.1 Time Spent (min) 35 Comment chart review (1) Diarrhea Diarrhea type: unspecified type Qualified Code(s): R19.7 - Diarrhea, unspecified (2) Hyperlipidemia Hyperlipidemia type: unspecified Qualified Code(s): E78.5 - Hyperlipidemia, unspecified (3) Hypothyroid Hypothyroidism type: unspecified Qualified Code(s): E03.9 - Hypothyroidism, unspecified (4) COPD (chronic obstructive pulmonary disease) COPD type: unspecified COPD Qualified Code(s): J44.9 - Chronic obstructive pulmonary disease, unspecified (5) Hypertension Hypertension type: essential hypertension Qualified Code(s): I10 - Essential (primary) hypertension
[2021-05-16 08:08] LABS: Hematocrit (blood only) 29.1 % (37-47); Mean Corpuscular Hgb Conc 30.9 g/dL (32-36); Mean Corpuscular Volume 100.3 fL (80-100); Mean Platelet Volume 10.1 fL (7.4-10.4); Platelet Count 243 K/uL (130-400); RDW Coefficient of Variation 16.5 % (11.5-14.5); RDW Standard Deviation 60.5 fL (36.4-46.3); White Blood Count 8.28 K/uL (4.8-10.8)
[2021-05-16 08:36] LABS: BUN Creatinine Ratio 12.9 (10-20); Calcium 8.4 mg/dl (8.5-10.1); Creatinine Clr Calc Pharmacy 36.8 ml/min; Est GFR (African American) 57.8 ml/min; Est GFR (Non-African American) 49.9 ml/min; Magnesium 1.8 mg/dl (1.8-2.4); Potassium 4.1 mmol/L (3.5-5.1)
[2021-05-16 08:47] LABS: Phosphorus 3.5 mg/dl (2.5-4.9)
[2021-05-16] MEDS: FLUCONAZOLE 100 MG/50 ML BAG IV SCH (09:03)
[2021-05-16] MEDS: VENLAFAXINE HCL 37.5 MG TAB PO SCH ×2 (09:04→21:56)
[2021-05-16] MEDS: APIXABAN 5 MG TABLET PO SCH ×2 (09:04→21:56)
[2021-05-16] MEDS: POTASSIUM CHLORIDE CRTAB 20 MEQ TABCR PO SCH (09:04)
[2021-05-16] MEDS: lamoTRIgine 100 MG TAB PO SCH (09:04)
[2021-05-16] MEDS: ROFLUMILAST 500 MCG TAB PO SCH (09:05)
[2021-05-16] MEDS: ASPIRIN 81 MG ECTAB PO SCH (09:05)
[2021-05-16] MEDS: CYANOCOBALAMIN (VITAMIN B-12) 2,500 MCG TAB.SUBL SL SCH (09:05)
[2021-05-16] MEDS: METOPROLOL TARTRATE 25 MG TAB PO SCH ×2 (10:18→21:56)
--- NOTE | 2021-05-16 11:00 | Cardiology Progress Note ---
Date of Service May 16, 2021 Assessment & Plan (1) Atrial fibrillation: -persistent atrial fibrillation diagnosed during her hospitalization in March 2021. -ventricular response well controlled on low-dose metoprolol tartrate. -Digoxin currently on hold. -continue Eliquis at 5 mg b.i.d. (2) Elevated troponin I level: -mild elevation of no clinical concern. (3) CAD (coronary artery disease): (4) Hypertension: -adequate control on current regimen. (5) Hyperlipidemia: -continue rosuvastatin. Admission and Anticipated Discharge Date Admission Date: May 08, 2021 Subjective The patient is resting comfortably in bed without complaints of chest pain, dyspnea, or palpitations. Physical Exam Physical Exam: In general is well-developed well-nourished white female no acute distress. HEENT exam is negative. Neck is supple with full carotid upstrokes. There are no obvious bruits. Jugular is pressure is flat at 90. There is no thyromegaly. Cardiovascular exam reveals an irregularly irregular rhythm with distant heart sounds. No obvious murmurs. Lungs are clear without rales, rhonchi or wheeze. Abdomen is soft and nontender without bruits. Extremities reveal intact radial artery pulses bilaterally. There is no peripheral edema. Results & Data ([facility]) Vital Signs (Past 12 Hours) Vital Signs Temp Pulse Resp BP Pulse Ox 05/16/21 08:00 36.5 C 78 18 147/73 H 97 05/16/21 03:00 36.9 C 81 20 181/81 H 96 05/15/21 23:00 36.4 C L 96 H 20 112/66 94 Diagnostic Findings security monitor notes atrial fibrillation with a ventricular response 70-90 beats per minute range. PG Care Time/CCT Total # of Minutes Spent Total Time Spent with Patient: Total time spent is greater than 50% in coordination of care (as documented) at patient's floor/unit and/or counseling patient: Coding Level of Care Code 11746 Subseq Hosp Care Lvl 3 Diagnoses Atrial fibrillation I48.91 Elevated troponin I level R77.8 CAD (coronary artery disease) I25.10 Hypertension I10 Hypertension type: essential hypertension Hyperlipidemia E78.5 Hyperlipidemia type: unspecified (1) Hypertension Hypertension type: essential hypertension Qualified Code(s): I10 - Essential (primary) hypertension (2) Hyperlipidemia Hyperlipidemia type: unspecified Qualified Code(s): E78.5 - Hyperlipidemia, unspecified
--- NOTE | 2021-05-16 15:47 | Psychiatric Consultation ---
Date of Consultation May 16, 2021 Impression / Recommendations Impression Patient is a 81-year-old female presenting to the hospital following infectious/metabolic derangements. Patient has been displaying anorexia while in the hospital and psychiatry was consulted given this and her history of bipolar 1 symptom as well as her multiple psychiatric medications. Initially today patient appeared better, however after several minutes in the conversation it became apparent that patient is not at a cognitive baseline. She remains quite confused and is likely still experiencing delirium. Review of the chart shows that patient had numerous insults which could cause such altered mental status including kidney injury, hypocalcemia, UTI. It is not uncommon, especially in elderly patients, for the delirium to last significantly longer than appears on the diagnostic labs. Patient seems to be improving from medical standpoint, as well as from a mental standpoint, although remains quite altered. Recommendations: -Continue home doses of psychiatric medications including venlafaxine, Seroquel, lamotrigine. -Please utilize Seroquel 25 mg p.o. every 4 hours as needed for agitation/aggression. -Hold off on any further psychiatric medication changes during this period of delirium. Inventory Assets Strengths: Resilience Needs: Stability Risk Factors Assessment Male: No : Yes Do You Have Access To A Gun?: No Protective Factors Assessment Baptism Beliefs: Yes Good Rapport with Provider: Yes Psych History Identifying Data Patient is a 81-year-old female who presented to the hospital approximately 7 days ago with infection, metabolic derangement. Patient has a history of bipolar disorder and has displayed some anorexic behaviors including refusing to eat. Psychiatry was consulted for assistance Chief Complaint "I had a little bit today". History of Present Illness Patient is a 81-year-old female who presented to hospital approximately 7 days ago with infection metabolic derangement. Psychiatry was consulted due to concerns for anorexia as patient has a history of bipolar disorder and had been refusing to eat. Attempted to see the patient yesterday on 05/15, patient was overly lethargic unable to stay awake or tolerate conversation. Patient was able to open her eyes but would only speak a word or two before drifting back to sleep. Saw patient again today on the afternoon of 05/16, during which patient displayed a much brighter affect and was able to interact appropriately with card writer hand. Initially patient was able to answer all my questions soundly and logically. She denied any homicidal or suicidal ideation. She denied any issues with her mood. She denied any hallucinations or psychotic symptoms. Patient stated that she had not been eating because she did not like the taste of the food. She went on to say that she has some food at home waiting for her. According to an aide who was present at the bedside, she had eaten some pudding earlier that day, but had not remembered doing so. When asked what she had eaten patent patient spoke that she had eaten an orange. Later on in the conversation patient began to no longer make sense. She told card writer hand to have a good weekend as well as made some statements that were illogical about laying down in the middle of her PCPs office. At this point, it appears the patient is still experiencing delirium. Past Psychiatric History Previous Psych History: History of bipolar disorder Do You Have Access To A Gun?: No Allergies Allergy/AdvReac Type Severity Reaction Status Date / Time metoclopramide Allergy Intermediate ESSENTIAL Verified 05/08/21 19:53 TREMORS clopidogrel Allergy Mild HIVES Verified 05/08/21 19:53 diazepam Allergy Mild DEPRESSION Verified 05/08/21 19:53 diltiazem Allergy Mild Light Verified 05/08/21 19:53 headed erythromycin base Allergy Mild EES, TAKES Verified 05/08/21 19:53 Z-PACKS W/O RXN gabapentin Allergy Mild States Verified 05/08/21 19:53 hands catch fire latex Allergy Mild rips skin Verified 05/08/21 19:53 off lisinopril Allergy Mild COUGH Verified 05/08/21 19:53 losartan Allergy Mild HIVES Verified 05/08/21 19:53 micafungin Allergy Mild rash Verified 05/08/21 19:53 oxycodone Allergy Mild INC. Verified 05/08/21 19:53 DEPRESSION Penicillins Allergy Mild Diarrhea Verified 05/08/21 19:53 promethazine Allergy Mild TROUBLE Verified 05/08/21 19:53 FOCUSING SPEAKING AT HIGHER DOSES Sulfa (Sulfonamide Allergy Mild SKIN Verified 05/08/21 19:53 Antibiotics) BECOMES PHOTOSENSITIVE AND BECOMES RED bupropion Allergy Unknown unknown Verified 05/08/21 19:53 dicyclomine Allergy Unknown Unknown Verified 05/08/21 19:53 potassium chloride Allergy Unknown Unknown Verified 05/08/21 19:53 sucralfate Allergy Unknown Unknown Verified 05/08/21 19:53 Zoaswiw-Uqp-Azs Reductase AdvReac Intermediate Diarrhea Verified 05/08/21 19:53 Inhibitor amoxicillin AdvReac Mild DIARRHEA Verified 05/08/21 19:53 clavulanic acid AdvReac Mild DIARRHEA Verified 05/08/21 19:53 hydrocodone AdvReac Mild "dont like Verified 05/08/21 19:53 how it makes me feel" Home Medications Medication Instructions Recorded Confirmed Type lamotrigine 150 mg PO QAM 01/01/19 05/08/21 History nitroglycerin [Nitrostat] 0.4 mg SUBLINGUAL UD PRN 01/01/19 05/08/21 History quetiapine 150 mg PO HS 01/01/19 05/08/21 History roflumilast 500 mcg PO QAM 01/01/19 05/08/21 History Oxygen Home #1 ea 07/21/20 04/10/21 History cholecalciferol (vitamin D3) 25 25 mcg PO DAILY 01/11/21 05/08/21 History mcg (1,000 unit) capsule cyanocobalamin (vitamin B-12) 5,000 mcg PO DAILY 01/11/21 05/08/21 History 5,000 mcg capsule ipratropium 20 mcg-albuterol 100 2 puff INHALATION Q6H PRN g 01/11/21 05/08/21 History mcg/actuation mist for inhalation rosuvastatin 10 mg tablet 10 mg PO HS 01/11/21 05/08/21 History ferrous gluconate 324 mg PO BIDM #60 tab 03/11/21 05/08/21 Rx ondansetron HCl [Zofran] 4 mg PO Q8H PRN #6 tab 03/11/21 05/08/21 Rx pregabalin 75 mg PO HS #30 cap 03/11/21 05/08/21 Rx Eliquis 5 mg PO BID #30 tab 04/04/21 05/08/21 Rx aspirin 81 mg PO DAILY 30 Days #30 tab 04/25/21 05/08/21 Rx digoxin [Digitek] 125 mcg PO DAILY@1600 30 Days #30 04/25/21 05/08/21 Rx tab loperamide 2 mg PO HS 30 Days #30 cap 04/25/21 05/08/21 Rx metoprolol tartrate 25 mg PO BID 30 Days #60 tab 04/25/21 05/08/21 Rx omeprazole 20 mg PO HS 05/08/21 05/08/21 History potassium chloride 20 meq PO QAM 05/08/21 05/08/21 History venlafaxine 37.5 mg PO QAM 05/08/21 05/08/21 History Personal History Beliefs That Will Affect Care: None Patient History Medical History (Updated 05/12/21 @ 22:15 by Chago Gould DO) Anemia REASON FOR COLONOSCOPY 07/2019 Atrial fibrillation Atrial fibrillation with rapid ventricular response Bipolar 1 disorder Breast cancer (08/23/14) "Abnormal bilateral mammogram Status post core needle biopsy 08/23/2014 revealing intraductal papilloma on the left Right breast showed invasive ductal carcinoma Status post right lumpectomy and sentinel lymph node biopsy 10/08/2014 Stage [id number] Status post completion of radiation therapy 12/24/2014 utilizing hypo-f ractionation received 5000 cGy" Breast cancer, right 2013--stage 1--lumpectomy and radiation Change in vision Chronic obstructive pulmonary disease inhaler daily Degenerative joint disease Depression Elevated troponin I level Fall GERD (gastroesophageal reflux disease) History of colon polyps Hyperlipidemia Hypertension Hypokalemia Hypothyroidism Medical marijuana use Myocardial Infarction "silent" in --follows with Dr. Gibbs On home oxygen therapy 2L N/C at hs Pancreatitis hx of Papilloma of breast left Sleep apnea Temporal arteritis Unstable angina Unstable angina Surgical History History of bilateral cataract extraction History of bilateral tubal ligation History of breast surgery removal of papilloma of left breast History of cardiac cath x3--last ---no stents History of cholecystectomy History of colonoscopy History of esophagogastroduodenoscopy (EGD) History of lumpectomy of right breast History of right breast biopsy malignant History of tooth extraction all teeth removed History of total hysterectomy with bilateral salpingo-oophorectomy (BSO) Family History Grandfather (Paternal) Family history of diabetes mellitus Other No family history of adverse response to anesthesia Social History Smoking Status: Former smoker Cigarettes Per Day: 20 a day; Second Hand Exposure: No; Do You Dip or Chew Tobacco: No; Hx Alcohol Use: No Hx Substance Use: No Preferred Language: Nepali Communication Ability: Impaired Sandwich Wrapper Required: No Beliefs That Will Affect Care: None Current Living Situation: Spouse Other Information That Helps Us Care for You: No Feels Safe at Home: Yes Safety Concerns: Feels Safe At This Time Assistive Devices: Oxygen - Continuous and Walker Physical Exam Psychiatric: Orientation: alert and cooperative; + not oriented x 3 Apperance: + disheveled Eye Contact: good eye contact Motor Behavior: + tremor Speech: normal rate/rhythm/volume of speech Affect: euthymic affect Mood: no depressed mood Thought Process: + circumstantial thought process, + tangential thought process and + confabulations Thought Content: reality based without delusions Suicidal Thoughts: denies suicidal thoughts Homicidal Thoughts: denies homicidal thoughts Hallucinations: no auditory hallucinations and no visual hallucinations Cognition: remote memory grossly intact Estimated Intelligence: consistent with education level Insight: + impaired insight Judgement: + impaired judgement Vital Signs (Past 24 Hours): Last Vital Signs Temp 36.8 C 05/16/21 15:37 Pulse 76 05/16/21 15:37 Resp 18 05/16/21 15:37 BP 159/71 H 05/16/21 15:37 Pulse Ox 96 05/16/21 15:37 Review of Systems All systems reviewed & are unremarkable except as noted in HPI & below Results & Data (PSY) Medications Administered Apixaban (Apixaban 5 Mg Tablet) 5 mg PO BID JANINE Stop: 06/08/21 00:56 Last Admin: 05/16/21 09:04 Dose: 5 mg Documented by: [id number] Admin: 05/15/21 21:38 Dose: 5 mg Documented by: [id number] Admin: 05/15/21 08:27 Dose: 5 mg Documented by: [id number] Admin: 05/14/21 20:41 Dose: 5 mg Documented by: [id number] Admin: 05/14/21 10:03 Dose: 5 mg Documented by: [id number] Admin: 05/13/21 21:08 Dose: 5 mg Documented by: [id number] Admin: 05/13/21 09:30 Dose: 5 mg Documented by: [id number] Admin: 05/12/21 19:46 Dose: 5 mg Documented by: [id number] Admin: 05/12/21 09:53 Dose: 5 mg Documented by: [id number] Admin: 05/11/21 20:17 Dose: 5 mg Documented by: [id number] Admin: 05/11/21 08:47 Dose: 5 mg Documented by: [id number] Admin: 05/10/21 20:23 Dose: 5 mg Documented by: [id number] Admin: 05/10/21 08:58 Dose: 5 mg Documented by: [id number] Admin: 05/09/21 22:24 Dose: 5 mg Documented by: [id number] Admin: 05/09/21 08:21 Dose: 5 mg Documented by: [id number] Admin: 05/09/21 01:43 Dose: 5 mg Documented by: [id number] Aspirin (Aspirin 81 Mg Ectab) 81 mg PO DAILY JANINE Stop: 06/08/21 08:59 Last Admin: 05/16/21 09:05 Dose: 81 mg Documented by: [id number] Admin: 05/15/21 08:28 Dose: 81 mg Documented by: [id number] Admin: 05/14/21 10:04 Dose: 81 mg Documented by: [id number] Admin: 05/13/21 09:31 Dose: 81 mg Documented by: [id number] Admin: 05/12/21 09:54 Dose: 81 mg Documented by: [id number] Admin: 05/11/21 08:47 Dose: 81 mg Documented by: [id number] Admin: 05/10/21 08:59 Dose: 81 mg Documented by: [id number] Admin: 05/09/21 08:11 Dose: 81 mg Documented by: [id number] Cyanocobalamin (Cyanocobalamin (Vitamin B-12) 2,500 Mcg Tab.Subl) 5,000 mcg SL DAILY JANINE Stop: 06/08/21 08:59 Last Admin: 05/16/21 09:05 Dose: 5,000 mcg Documented by: [id number] Admin: 05/15/21 08:31 Dose: 5,000 mcg Documented by: [id number] Admin: 05/14/21 10:03 Dose: 5,000 mcg Documented by: [id number] Admin: 05/13/21 09:28 Dose: 5,000 mcg Documented by: [id number] Admin: 05/12/21 09:52 Dose: 5,000 mcg Documented by: [id number] Admin: 05/11/21 08:47 Dose: 5,000 mcg Documented by: [id number] Admin: 05/10/21 09:01 Dose: 5,000 mcg Documented by: [id number] Admin: 05/09/21 08:12 Dose: 5,000 mcg Documented by: [id number] Dronabinol (Dronabinol 2.5 Mg Cap) 2.5 mg PO BID JANINE Stop: 06/12/21 08:59 Last Admin: 05/16/21 10:18 Dose: 2.5 mg Documented by: [id number] Admin: 05/15/21 21:37 Dose: 2.5 mg Documented by: [id number] Admin: 05/15/21 08:38 Dose: 2.5 mg Documented by: [id number] Admin: 05/14/21 20:46 Dose: 2.5 mg Documented by: [id number] Admin: 05/14/21 10:20 Dose: 2.5 mg Documented by: [id number] Admin: 05/13/21 21:07 Dose: 2.5 mg Documented by: [id number] Admin: 05/13/21 09:41 Dose: 2.5 mg Documented by: [id number] Fluconazole (Diflucan) 100 mg in 50 mls @ 100 mls/hr IV DAILY JANINE; Protocol Stop: 05/19/21 11:59 Last Infusion: 05/16/21 10:18 Dose: 0 mls/hr Documented by: [id number] Admin: 05/16/21 09:03 Dose: 100 mls/hr Documented by: [id number] Infusion: 05/15/21 09:00 Dose: 0 mls/hr Documented by: [id number] Admin: 05/15/21 08:26 Dose: 100 mls/hr Documented by: [id number] Infusion: 05/14/21 13:55 Dose: 0 mls/hr Documented by: [id number] Admin: 05/14/21 12:57 Dose: 100 mls/hr Documented by: [id number] Lamotrigine (Lamotrigine 100 Mg Tab) 150 mg PO QAM JANINE Stop: 06/08/21 08:59 Last Admin: 05/16/21 09:04 Dose: 150 mg Documented by: [id number] Admin: 05/15/21 08:28 Dose: 150 mg Documented by: [id number] Admin: 05/14/21 10:03 Dose: 150 mg Documented by: [id number] Admin: 05/13/21 09:29 Dose: 150 mg Documented by: [id number] Admin: 05/12/21 09:53 Dose: 150 mg Documented by: [id number] Admin: 05/11/21 08:47 Dose: 150 mg Documented by: [id number] Admin: 05/10/21 09:00 Dose: 150 mg Documented by: [id number] Admin: 05/09/21 08:11 Dose: 150 mg Documented by: [id number] Loperamide HCl (Loperamide Hcl 2 Mg Cap) 2 mg PO HS JANINE Stop: 06/08/21 20:59 Last Admin: 05/15/21 21:40 Dose: 2 mg Documented by: [id number] Admin: 05/14/21 20:46 Dose: 2 mg Documented by: [id number] Admin: 05/13/21 21:14 Dose: 2 mg Documented by: [id number] Admin: 05/12/21 19:53 Dose: 2 mg Documented by: [id number] Admin: 05/11/21 20:20 Dose: 2 mg Documented by: [id number] Admin: 05/10/21 20:28 Dose: 2 mg Documented by: [id number] Admin: 05/09/21 22:35 Dose: 2 mg Documented by: [id number] Metoprolol Tartrate (Metoprolol Tartrate 25 Mg Tab) 12.5 mg PO BID JANINE Stop: 06/11/21 20:59 Last Admin: 05/16/21 10:18 Dose: 12.5 mg Documented by: [id number] Admin: 05/15/21 21:37 Dose: 12.5 mg Documented by: [id number] Admin: 05/15/21 08:29 Dose: 12.5 mg Documented by: [id number] Admin: 05/14/21 20:39 Dose: 12.5 mg Documented by: [id number] Admin: 05/14/21 10:03 Dose: 12.5 mg Documented by: [id number] Admin: 05/13/21 21:08 Dose: 12.5 mg Documented by: [id number] Admin: 05/13/21 09:24 Dose: 12.5 mg Documented by: [id number] Admin: 05/12/21 19:50 Dose: 12.5 mg Documented by: [id number] Mirtazapine (Mirtazapine Tab 15 Mg Tab) 15 mg PO HS JANINE Stop: 06/12/21 20:59 Last Admin: 05/15/21 21:39 Dose: 15 mg Documented by: [id number] Admin: 05/14/21 20:41 Dose: 15 mg Documented by: [id number] Admin: 05/13/21 21:10 Dose: 15 mg Documented by: [id number] Pantoprazole Sodium (Pantoprazole 40 Mg Tab) 40 mg PO JANINE Stop: 06/08/21 20:59 Last Admin: 05/15/21 21:38 Dose: 40 mg Documented by: [id number] Admin: 05/14/21 20:40 Dose: 40 mg Documented by: [id number] Admin: 05/13/21 21:08 Dose: 40 mg Documented by: [id number] Admin: 05/12/21 19:50 Dose: 40 mg Documented by: [id number] Admin: 05/11/21 20:17 Dose: 40 mg Documented by: [id number] Admin: 05/10/21 20:25 Dose: 40 mg Documented by: [id number] Admin: 05/09/21 22:25 Dose: 40 mg Documented by: [id number] Potassium Chloride (Potassium Chloride Crtab 20 Meq Tabcr) 20 meq PO QA JANINE Stop: 06/13/21 08:59 Last Admin: 05/16/21 09:04 Dose: 20 meq Documented by: [id number] Admin: 05/15/21 08:27 Dose: 20 meq Documented by: [id number] Admin: 05/14/21 10:20 Dose: 20 meq Documented by: [id number] Pregabalin (Pregabalin 75 Mg Cap) 75 mg PO JANINE Stop: 06/08/21 20:59 Last Admin: 05/15/21 21:37 Dose: 75 mg Documented by: [id number] Admin: 05/14/21 20:39 Dose: 75 mg Documented by: [id number] Admin: 05/13/21 21:14 Dose: 75 mg Documented by: [id number] Admin: 05/12/21 21:44 Dose: Not Given Documented by: [id number] Admin: 05/11/21 20:14 Dose: 75 mg Documented by: [id number] Admin: 05/10/21 20:28 Dose: 75 mg Documented by: [id number] Admin: 05/09/21 22:35 Dose: 75 mg Documented by: [id number] Quetiapine Fumarate (Quetiapine Fumarate 150 Mg Tabcr) 150 mg PO JANINE Stop: 06/08/21 20:59 Last Admin: 05/15/21 21:38 Dose: 150 mg Documented by: [id number] Admin: 05/14/21 20:41 Dose: 150 mg Documented by: [id number] Admin: 05/13/21 21:07 Dose: 150 mg Documented by: [id number] Admin: 05/12/21 21:44 Dose: Not Given Documented by: [id number] Admin: 05/11/21 20:15 Dose: 150 mg Documented by: [id number] Admin: 05/10/21 20:25 Dose: 150 mg Documented by: [id number] Admin: 05/09/21 22:25 Dose: 150 mg Documented by: [id number] Roflumilast (Roflumilast 500 Mcg Tab) 500 mcg PO QAM JANINE Stop: 06/08/21 08:59 Last Admin: 05/16/21 09:05 Dose: 500 mcg Documented by: [id number] Admin: 05/15/21 08:29 Dose: 500 mcg Documented by: [id number] Admin: 05/14/21 10:03 Dose: 500 mcg Documented by: [id number] Admin: 05/13/21 09:29 Dose: 500 mcg Documented by: [id number] Admin: 05/12/21 09:54 Dose: 500 mcg Documented by: [id number] Admin: 05/11/21 08:48 Dose: 500 mcg Documented by: [id number] Admin: 05/10/21 09:00 Dose: 500 mcg Documented by: [id number] Admin: 05/09/21 08:11 Dose: 500 mcg Documented by: [id number] Rosuvastatin Calcium (Rosuvastatin Calcium 10 Mg Tab) 10 mg PO HS [facility] Stop: 06/08/21 20:59 Last Admin: 05/15/21 21:37 Dose: 10 mg Documented by: [id number] Admin: 05/14/21 20:39 Dose: 10 mg Documented by: [id number] Admin: 05/13/21 21:08 Dose: 10 mg Documented by: [id number] Admin: 05/12/21 19:49 Dose: 10 mg Documented by: [id number] Admin: 05/11/21 20:16 Dose: 10 mg Documented by: [id number] Admin: 05/10/21 20:25 Dose: 10 mg Documented by: [id number] Admin: 05/09/21 22:26 Dose: 10 mg Documented by: [id number] Venlafaxine HCl (Venlafaxine Hcl 37.5 Mg Tab) 37.5 mg PO BID JANINE Stop: 06/09/21 20:59 Last Admin: 05/16/21 09:04 Dose: 37.5 mg Documented by: [id number] Admin: 05/15/21 21:39 Dose: 37.5 mg Documented by: [id number] Admin: 05/15/21 08:27 Dose: 37.5 mg Documented by: [id number] Admin: 05/14/21 20:41 Dose: 37.5 mg Documented by: [id number] Admin: 05/14/21 10:03 Dose: 37.5 mg Documented by: [id number] Admin: 05/13/21 21:07 Dose: 37.5 mg Documented by: [id number] Admin: 05/13/21 09:29 Dose: 37.5 mg Documented by: [id number] Admin: 05/12/21 19:48 Dose: 37.5 mg Documented by: [id number] Admin: 05/12/21 09:54 Dose: 37.5 mg Documented by: [id number] Admin: 05/11/21 20:16 Dose: 37.5 mg Documented by: [id number] Admin: 05/11/21 08:48 Dose: 37.5 mg Documented by: [id number] Admin: 05/10/21 20:22 Dose: 37.5 mg Documented by: [id number] Coding Level of Care Code 33221 U Intl Hosp Care Lvl 2
[2021-05-16] MEDS: MIRTAZAPINE TAB 15 MG TAB PO SCH (21:56)
[2021-05-16] MEDS: PANTOprazole 40 MG TAB PO SCH (21:56)
[2021-05-16] MEDS: ROSUVASTATIN CALCIUM 10 MG TAB PO SCH (21:56)
[2021-05-16] MEDS: PREGABALIN 75 MG CAP PO SCH (21:56)
[2021-05-16] MEDS: LOPERAMIDE HCL 2 MG CAP PO SCH (21:56)
--- NOTE | 2021-05-16 22:02 | Hospitalist Progress Note ---
Date of Service May 16, 2021 Assessment & Plan (1) Anorexia: main issue, not eating at all, maybe two bites today gave her another liter of D5W on 05/12 no response to Effexor will conitnue Marinol 2.5mg BID and titrate upward to see if we can get a response will increase Remeron to 15mg HS her and I tell her every day that she needs to eat she denies abdominal pain, nausea likely that depressed mood playing a big role maybe Digoxin is causing anorexia and depression? started this last month will discontinue it consult psychiatry given her complex mental health history will consult quarrying manager as concern over her decreased oral intake. poor prognosis. Appreciate input from quarrying manager. (2) Atrial fibrillation: on eliquis for anticoagulation bradycardia on 05/12, could be tachybrady syndrome, HR in 40's, no symptoms EKG showed afib with slow AV conduction digoxin is 1.8, held digoxin on 05/12, HR up to 70-80s reduced metoprolol to 12.5mg BID will now stop Digoxin as it might be contributing to anorexia and depression? monitor rates on tele, can go up on metoprolol if HR goes up (3) Acute kidney injury: Creatinine 1.46 upon admission, with baseline 0.69. Potassium 2.8 upon admission. Likely brought on by diarrhea and decreased oral intake Received potassium 40 mEq p.o. in the ED. Cr improved to baseline, no IV fluids today hypernatremia resolved (4) Hypokalemia: will monitor, resume supplementation (5) Diarrhea: Work-up at last admission was C. difficile negative, stool culture negative, and improved with Cipro and Flagyl treatment for nonspecific proctocolitis noted on CT of abdomen pelvis on 04/16 Nurses report that she had 3 bowel movements in the emergency department, but they were of normal caliber Her symptoms had improved with Imodium and Questran during last admission. Continue loperamide 2 mg p.o. at bedtime. Resume Questran, which is presently not on her medication list and unclear if it was discontinued or dropped off small mucous like stool today, sent for C diff - NEGATIVE but overall less stools (6) Generalized weakness: history of profound weakness with infection and stress was supposed to follow up with [place] neurology movement disorder will need a single fiber EMG has been tested for myasthenia gravis and Lambert Eaton in the past, negative order PT/OT not eating enough to give her energy, try to stimulate appetite with Remeron and Marinol (7) GERD (gastroesophageal reflux disease): Continue omeprazole 20 mg daily for now (8) Hypothyroid: Is a diagnosis of hypothyroidism, is not on any thyroid hormone replacement (9) Anxiety: Bipolar 1 disorder/Anxiety with depression- Was noted in the past to be contributing to overall symptomatology Continue lamotrigine, pregabalin, quetiapine and venlafaxine (increase to 37.5mg BID) and will add Remeron 15mg HS consult psych (10) Bipolar 1 disorder: See above (11) Depression: See above severe, not eating well, lacks motivation continue Effexor, Remeron (12) COPD (chronic obstructive pulmonary disease): Continue as needed duo nebs (13) Hyperlipidemia: Continue rosuvastatin (14) Hypertension: See above (15) COVID-19 virus infection: Patient did have full vaccine in January 2021 Was noted to be positive on 04/10 and 04/25/2021, but was not felt to be need to be treated due to no symptomatology. She again has no symptoms. remove isolation precautions Admission and Anticipated Discharge Date Admission Date: May 08, 2021 Subjective 81 yo female is more awake today and calm. Review of Systems Review of Systems: All systems reviewed & are unremarkable except as noted in HPI & below Physical Exam Physical Exam: Constitutional: well developed, + thin and + frail appearing; no acute distress Neck: trachea midline, no thyromegaly Respiratory: normal respiratory effort, lungs clear to auscultation Cardiovascular: Rate/Rhythm: regular rate and + irregularly irregular Heart Sounds: normal S1 and normal S2; no murmur Gastrointestinal (Abdomen): normal bowel sounds, soft, nontender, no hepatosplenomegaly Musculoskeletal: Head/Neck/Chest: normocephalic, head atraumatic and neck supple Extremities: extremities normal to inspection and + abnormal strength (generalized weakness, cannot stand up); no cyanosis, no clubbing and no petechiae Skin: no rashes, warm and dry Neurologic: patellar DTR's 2+ bilat, sensation intact and PERRL, EOMI, accommodation nl, no face palsy, no dysarthria Psychiatric: Orientation: alert and oriented x 3 Lymphatic: no cervical or axillary lymphadenopathy Results & Data Results & Data ([facility]) Vital Signs (Past 12 Hours) Vital Signs Temp Pulse Resp BP Pulse Ox 05/16/21 19:50 36.7 C 81 18 162/74 H 97 05/16/21 15:37 36.8 C 76 18 159/71 H 96 05/16/21 11:23 36.6 C 85 20 112/82 99 PG Care Time/CCT Total # of Minutes Spent Total Time Spent with Patient: Total time spent is greater than 50% in coordination of care (as documented) at patient's floor/unit and/or counseling patient: Coding Level of Care Code 92148 Subseq Hosp Care Lvl 2 Diagnoses Anorexia R63.0 Atrial fibrillation I48.91 Acute kidney injury N17.9 Hypokalemia E87.6 Diarrhea R19.7 Diarrhea type: unspecified type Generalized weakness R53.1 GERD (gastroesophageal reflux disease) K21.9 Hypothyroid E03.9 Hypothyroidism type: unspecified Anxiety F41.9 Bipolar 1 disorder F31.9 Depression F32.9 COPD (chronic obstructive pulmonary disease) J44.9 COPD type: unspecified COPD Hyperlipidemia E78.5 Hyperlipidemia type: unspecified Hypertension I10 Hypertension type: essential hypertension COVID-19 virus infection U07.1 Time Spent (min) 25 (1) Diarrhea Diarrhea type: unspecified type Qualified Code(s): R19.7 - Diarrhea, unspecified (2) Hyperlipidemia Hyperlipidemia type: unspecified Qualified Code(s): E78.5 - Hyperlipidemia, unspecified (3) Hypothyroid Hypothyroidism type: unspecified Qualified Code(s): E03.9 - Hypothyroidism, unspecified (4) COPD (chronic obstructive pulmonary disease) COPD type: unspecified COPD Qualified Code(s): J44.9 - Chronic obstructive pulmonary disease, unspecified (5) Hypertension Hypertension type: essential hypertension Qualified Code(s): I10 - Essential (primary) hypertension
[2021-05-17] MEDS: CYANOCOBALAMIN (VITAMIN B-12) 2,500 MCG TAB.SUBL SL SCH (11:19)
[2021-05-17] MEDS: ASPIRIN 81 MG ECTAB PO SCH (11:19)
[2021-05-17] MEDS: APIXABAN 5 MG TABLET PO SCH ×2 (11:19→19:41)
[2021-05-17] MEDS: FLUCONAZOLE 100 MG/50 ML BAG IV SCH (11:20)
[2021-05-17] MEDS: METOPROLOL TARTRATE 25 MG TAB PO SCH ×2 (11:20→19:41)
[2021-05-17] MEDS: POTASSIUM CHLORIDE CRTAB 20 MEQ TABCR PO SCH (11:20)
[2021-05-17] MEDS: VENLAFAXINE HCL 37.5 MG TAB PO SCH ×2 (11:20→19:40)
[2021-05-17] MEDS: lamoTRIgine 100 MG TAB PO SCH (11:20)
[2021-05-17] MEDS: ROFLUMILAST 500 MCG TAB PO SCH (11:20)
[2021-05-17] MEDS: cefTRIAXone SODIUM 1,000 MG in DEXTROSE 5% 50 ML IV SCH (15:35)
[2021-05-17] MEDS: MIRTAZAPINE TAB 15 MG TAB PO SCH (19:40)
[2021-05-17] MEDS: ROSUVASTATIN CALCIUM 10 MG TAB PO SCH (19:41)
[2021-05-17] MEDS: LOPERAMIDE HCL 2 MG CAP PO SCH (19:47)
[2021-05-17] MEDS: PREGABALIN 75 MG CAP PO SCH (19:47)
[2021-05-17] MEDS: PANTOprazole 40 MG TAB PO SCH (20:10)
[2021-05-17] MEDS: METOPROLOL TARTRATE 1 MG/ML VIAL IV PRN (20:15)
--- NOTE | 2021-05-17 22:17 | Hospitalist Progress Note ---
Date of Service May 17, 2021 Assessment & Plan (1) Anorexia: main issue, not eating at all, maybe two bites today gave her another liter of D5W on 05/12 no response to Effexor will conitnue Marinol 2.5mg BID and titrate upward to see if we can get a response will increase Remeron to 15mg HS her and I tell her every day that she needs to eat she denies abdominal pain, nausea likely that depressed mood playing a big role maybe Digoxin is causing anorexia and depression? started this last month will discontinue it consult psychiatry given her complex mental health history will consult wood drill operator as concern over her decreased oral intake. poor prognosis. Appreciate input from wood drill operator.. Will do a trial of PPN for 3-5 days after discussing risk and benefits. will discuss with pharmacy and nutrition. (2) Atrial fibrillation: on eliquis for anticoagulation bradycardia on 05/12, could be tachybrady syndrome, HR in 40's, no symptoms EKG showed afib with slow AV conduction digoxin is 1.8, held digoxin on 05/12, HR up to 70-80s reduced metoprolol to 12.5mg BID will now stop Digoxin as it might be contributing to anorexia and depression? monitor rates on tele, can go up on metoprolol if HR goes up (3) Acute kidney injury: Creatinine 1.46 upon admission, with baseline 0.69. Potassium 2.8 upon admission. Likely brought on by diarrhea and decreased oral intake Received potassium 40 mEq p.o. in the ED. Cr improved to baseline, no IV fluids today hypernatremia resolved (4) Hypokalemia: will monitor, resume supplementation (5) Diarrhea: Work-up at last admission was C. difficile negative, stool culture negative, and improved with Cipro and Flagyl treatment for nonspecific proctocolitis noted on CT of abdomen pelvis on 04/16 Nurses report that she had 3 bowel movements in the emergency department, but they were of normal caliber Her symptoms had improved with Imodium and Questran during last admission. Continue loperamide 2 mg p.o. at bedtime. Resume Questran, which is presently not on her medication list and unclear if it was discontinued or dropped off small mucous like stool today, sent for C diff - NEGATIVE but overall less stools (6) Generalized weakness: history of profound weakness with infection and stress was supposed to follow up with [place] neurology movement disorder will need a single fiber EMG has been tested for myasthenia gravis and Lambert Eaton in the past, negative order PT/OT not eating enough to give her energy, try to stimulate appetite with Remeron and Marinol (7) GERD (gastroesophageal reflux disease): Continue omeprazole 20 mg daily for now (8) Hypothyroid: Is a diagnosis of hypothyroidism, is not on any thyroid hormone replacement (9) Anxiety: Bipolar 1 disorder/Anxiety with depression- Was noted in the past to be contributing to overall symptomatology Continue lamotrigine, pregabalin, quetiapine and venlafaxine (increase to 37.5mg BID) and will add Remeron 15mg HS consult psych (10) Bipolar 1 disorder: See above (11) Depression: See above severe, not eating well, lacks motivation continue Effexor, Remeron (12) COPD (chronic obstructive pulmonary disease): Continue as needed duo nebs (13) Hyperlipidemia: Continue rosuvastatin (14) Hypertension: See above (15) COVID-19 virus infection: Patient did have full vaccine in January 2021 Was noted to be positive on 04/10 and 04/25/2021, but was not felt to be need to be treated due to no symptomatology. She again has no symptoms. remove isolation precautions Admission and Anticipated Discharge Date Admission Date: May 08, 2021 Subjective Patient was confused this morning. Had conversation with family who were agreeable with palliative care consult and temporary feedings. Review of Systems Review of Systems: All systems reviewed & are unremarkable except as noted in HPI & below Physical Exam Physical Exam: Constitutional: well developed, + thin and + frail appearing; no acute distress Neck: trachea midline, no thyromegaly Respiratory: normal respiratory effort, lungs clear to auscultation Cardiovascular: Rate/Rhythm: regular rate and + irregularly irregular Heart Sounds: normal S1 and normal S2; no murmur Gastrointestinal (Abdomen): normal bowel sounds, soft, nontender, no hepatosplenomegaly Musculoskeletal: Head/Neck/Chest: normocephalic, head atraumatic and neck supple Extremities: extremities normal to inspection and + abnormal strength (generalized weakness, cannot stand up); no cyanosis, no clubbing and no petechiae Skin: no rashes, warm and dry Neurologic: patellar DTR's 2+ bilat, sensation intact and PERRL, EOMI, accommodation nl, no face palsy, no dysarthria Psychiatric: Orientation: alert and oriented x 3 Lymphatic: no cervical or axillary lymphadenopathy Results & Data Results & Data ([facility]) Vital Signs (Past 12 Hours) Vital Signs Temp Pulse Pulse Resp BP BP Pulse Ox 05/17/21 20:48 82 05/17/21 20:15 131 H 169/94 H 05/17/21 19:00 36.6 C 121 H 20 169/94 H 92 PG Care Time/CCT Total # of Minutes Spent Total Time Spent with Patient: Total time spent is greater than 50% in coordination of care (as documented) at patient's floor/unit and/or counseling patient: Coding Level of Care Code 62484 Subseq Hosp Care Lvl 3 Diagnoses Anorexia R63.0 Atrial fibrillation I48.91 Acute kidney injury N17.9 Hypokalemia E87.6 Diarrhea R19.7 Diarrhea type: unspecified type Generalized weakness R53.1 GERD (gastroesophageal reflux disease) K21.9 Hypothyroid E03.9 Hypothyroidism type: unspecified Anxiety F41.9 Bipolar 1 disorder F31.9 Depression F32.9 COPD (chronic obstructive pulmonary disease) J44.9 COPD type: unspecified COPD Hyperlipidemia E78.5 Hyperlipidemia type: unspecified Hypertension I10 Hypertension type: essential hypertension COVID-19 virus infection U07.1 Time Spent (min) 35 (1) Diarrhea Diarrhea type: unspecified type Qualified Code(s): R19.7 - Diarrhea, unspecified (2) Hyperlipidemia Hyperlipidemia type: unspecified Qualified Code(s): E78.5 - Hyperlipidemia, unspecified (3) Hypothyroid Hypothyroidism type: unspecified Qualified Code(s): E03.9 - Hypothyroidism, unspecified (4) COPD (chronic obstructive pulmonary disease) COPD type: unspecified COPD Qualified Code(s): J44.9 - Chronic obstructive pulmonary disease, unspecified (5) Hypertension Hypertension type: essential hypertension Qualified Code(s): I10 - Essential (primary) hypertension
[2021-05-18] MEDS ORDERED: TPN/PPN CONSULT PHARMACY PRN (08:31)
[2021-05-18 09:26] LABS: Hematocrit (blood only) 32.1 % (37-47); Hemoglobin 10.2 g/dL (12.0-16.0); Mean Corpuscular Hemoglobin 31.5 pg (25-34); Mean Corpuscular Hgb Conc 31.8 g/dL (32-36); Mean Corpuscular Volume 99.1 fL (80-100); Mean Platelet Volume 9.7 fL (7.4-10.4); Platelet Count 302 K/uL (130-400); RDW Standard Deviation 58.7 fL (36.4-46.3); Red Blood Count 3.24 M/uL (4.2-5.4); White Blood Count 11.84 K/uL (4.8-10.8)
[2021-05-18 09:54] LABS: BUN Creatinine Ratio 13.3 (10-20); Calcium 8.9 mg/dl (8.5-10.1); Creatinine Clr Calc Pharmacy 36.5 ml/min; Est GFR (African American) 58.5 ml/min; Est GFR (Non-African American) 50.5 ml/min; Magnesium 1.7 mg/dl (1.8-2.4); Phosphorus 3.4 mg/dl (2.5-4.9); Potassium 3.9 mmol/L (3.5-5.1)
[2021-05-18] MEDS: lamoTRIgine 100 MG TAB PO SCH (10:36)
[2021-05-18] MEDS: METOPROLOL TARTRATE 25 MG TAB PO SCH ×2 (10:36→21:56)
[2021-05-18] MEDS: ASPIRIN 81 MG ECTAB PO SCH (10:36)
[2021-05-18] MEDS: ROFLUMILAST 500 MCG TAB PO SCH (10:36)
[2021-05-18] MEDS: APIXABAN 5 MG TABLET PO SCH ×2 (10:36→21:55)
[2021-05-18] MEDS: CYANOCOBALAMIN (VITAMIN B-12) 2,500 MCG TAB.SUBL SL SCH (10:36)
[2021-05-18] MEDS: POTASSIUM CHLORIDE CRTAB 20 MEQ TABCR PO SCH (10:36)
[2021-05-18] MEDS: VENLAFAXINE HCL 37.5 MG TAB PO SCH ×2 (10:37→21:56)
[2021-05-18] MEDS: METOPROLOL TARTRATE 1 MG/ML VIAL IV PRN (12:05)
[2021-05-18] MEDS: cefTRIAXone SODIUM 1,000 MG in DEXTROSE 5% 50 ML IV SCH (16:10)
[2021-05-18] MEDS ORDERED: PEPTAMEN 1.5 CAL 1,000 ML BAG NG SCH (17:30)
[2021-05-18] MEDS: TUBE FEEDING WATER FLUSH NG SCH ×2 (20:19→21:57)
--- NOTE | 2021-05-18 21:53 | Hospitalist Progress Note ---
Date of Service May 18, 2021 Assessment & Plan (1) Anorexia: main issue, not eating at all, maybe two bites today gave her another liter of D5W on 05/12 no response to Effexor will conitnue Marinol 2.5mg BID and titrate upward to see if we can get a response will increase Remeron to 15mg HS her and I tell her every day that she needs to eat she denies abdominal pain, nausea likely that depressed mood playing a big role maybe Digoxin is causing anorexia and depression? started this last month will discontinue it consult psychiatry given her complex mental health history will consult skein mercerizing machine operator as concern over her decreased oral intake. poor prognosis. Appreciate input from skein mercerizing machine operator. Had discussion with pharmacy and nutrition, given risks of parenteral nutrition, recommended to revisit nutrition options. Patient and family now agreeable to NG tube feedings, risks and benefits were discussed. Such as aspiration pneumonia. (2) Atrial fibrillation: on eliquis for anticoagulation bradycardia on 05/12, could be tachybrady syndrome, HR in 40's, no symptoms EKG showed afib with slow AV conduction digoxin is 1.8, held digoxin on 05/12, HR up to 70-80s reduced metoprolol to 12.5mg BID will now stop Digoxin as it might be contributing to anorexia and depression? monitor rates on tele, can go up on metoprolol if HR goes up (3) Acute kidney injury: Creatinine 1.46 upon admission, with baseline 0.69. Potassium 2.8 upon admission. Likely brought on by diarrhea and decreased oral intake Received potassium 40 mEq p.o. in the ED. Cr improved to baseline, no IV fluids today hypernatremia resolved (4) Hypokalemia: will monitor, resume supplementation (5) Diarrhea: Work-up at last admission was C. difficile negative, stool culture negative, and improved with Cipro and Flagyl treatment for nonspecific proctocolitis noted on CT of abdomen pelvis on 04/16 Nurses report that she had 3 bowel movements in the emergency department, but they were of normal caliber Her symptoms had improved with Imodium and Questran during last admission. Continue loperamide 2 mg p.o. at bedtime. Resume Questran, which is presently not on her medication list and unclear if it was discontinued or dropped off small mucous like stool today, sent for C diff - NEGATIVE but overall less stools (6) Generalized weakness: history of profound weakness with infection and stress was supposed to follow up with [place] neurology movement disorder will need a single fiber EMG has been tested for myasthenia gravis and Lambert Eaton in the past, negative order PT/OT not eating enough to give her energy, try to stimulate appetite with Remeron and Marinol (7) GERD (gastroesophageal reflux disease): Continue omeprazole 20 mg daily for now (8) Hypothyroid: Is a diagnosis of hypothyroidism, is not on any thyroid hormone replacement (9) Anxiety: Bipolar 1 disorder/Anxiety with depression- Was noted in the past to be contributing to overall symptomatology Continue lamotrigine, pregabalin, quetiapine and venlafaxine (increase to 37.5mg BID) and will add Remeron 15mg HS consult psych: appreciate input (10) Bipolar 1 disorder: See above (11) Depression: See above severe, not eating well, lacks motivation continue Effexor, Remeron (12) COPD (chronic obstructive pulmonary disease): Continue as needed duo nebs (13) Hyperlipidemia: Continue rosuvastatin (14) Hypertension: See above (15) COVID-19 virus infection: Patient did have full vaccine in January 2021 Was noted to be positive on 04/10 and 04/25/2021, but was not felt to be need to be treated due to no symptomatology. She again has no symptoms. remove isolation precautions Admission and Anticipated Discharge Date Admission Date: May 08, 2021 Subjective 81 yo female is now agreeable to NG tube placement. Yesterday, patient was not agreeable to NG tube placement and deferred to parenteral nutrition, which family had agreed upon. Review of Systems Review of Systems: All systems reviewed & are unremarkable except as noted in HPI & below Physical Exam Physical Exam: Constitutional: well developed, + thin and + frail appearing; no acute distress Neck: trachea midline, no thyromegaly Respiratory: normal respiratory effort, lungs clear to auscultation Cardiovascular: Rate/Rhythm: regular rate and + irregularly irregular Heart Sounds: normal S1 and normal S2; no murmur Gastrointestinal (Abdomen): normal bowel sounds, soft, nontender, no hepatosplenomegaly Musculoskeletal: Head/Neck/Chest: normocephalic, head atraumatic and neck supple Extremities: extremities normal to inspection and + abnormal strength (generalized weakness, cannot stand up); no cyanosis, no clubbing and no petechiae Skin: no rashes, warm and dry Neurologic: patellar DTR's 2+ bilat, sensation intact and PERRL, EOMI, accommodation nl, no face palsy, no dysarthria Psychiatric: Orientation: alert and oriented x 3 Lymphatic: no cervical or axillary lymphadenopathy Results & Data Results & Data ([facility]) Vital Signs (Past 12 Hours) Vital Signs Temp Pulse Pulse Resp BP BP Pulse Ox 05/18/21 19:18 36.8 C 95 H 18 166/76 H 94 05/18/21 16:29 90 05/18/21 12:10 36.8 C 112 H 18 150/95 H 92 05/18/21 12:05 112 H 150/95 H PG Care Time/CCT Total # of Minutes Spent Total Time Spent with Patient: Total time spent is greater than 50% in coordination of care (as documented) at patient's floor/unit and/or counseling patient: Coding Level of Care Code 12893 Subseq Hosp Care Lvl 3 Diagnoses Anorexia R63.0 Atrial fibrillation I48.91 Acute kidney injury N17.9 Hypokalemia E87.6 Diarrhea R19.7 Diarrhea type: unspecified type Generalized weakness R53.1 GERD (gastroesophageal reflux disease) K21.9 Hypothyroid E03.9 Hypothyroidism type: unspecified Anxiety F41.9 Bipolar 1 disorder F31.9 Depression F32.9 COPD (chronic obstructive pulmonary disease) J44.9 COPD type: unspecified COPD Hyperlipidemia E78.5 Hyperlipidemia type: unspecified Hypertension I10 Hypertension type: essential hypertension COVID-19 virus infection U07.1 Time Spent (min) 35 Comment discussion with patient, family, pharmacy (1) Diarrhea Diarrhea type: unspecified type Qualified Code(s): R19.7 - Diarrhea, unspecified (2) Hyperlipidemia Hyperlipidemia type: unspecified Qualified Code(s): E78.5 - Hyperlipidemia, unspecified (3) Hypothyroid Hypothyroidism type: unspecified Qualified Code(s): E03.9 - Hypothyroidism, unspecified (4) COPD (chronic obstructive pulmonary disease) COPD type: unspecified COPD Qualified Code(s): J44.9 - Chronic obstructive pulmonary disease, unspecified (5) Hypertension Hypertension type: essential hypertension Qualified Code(s): I10 - Essential (primary) hypertension
[2021-05-18] MEDS: MIRTAZAPINE TAB 15 MG TAB PO SCH (21:56)
[2021-05-18] MEDS: LOPERAMIDE HCL 2 MG CAP PO SCH (21:56)
[2021-05-18] MEDS: PREGABALIN 75 MG CAP PO SCH (21:56)
[2021-05-18] MEDS: PANTOprazole 40 MG TAB PO SCH (21:56)
[2021-05-18] MEDS: ROSUVASTATIN CALCIUM 10 MG TAB PO SCH (21:56)
[2021-05-19] MEDS: METOPROLOL TARTRATE 25 MG TAB PO SCH ×3 (00:22→21:01)
[2021-05-19] MEDS: TUBE FEEDING WATER FLUSH NG SCH ×6 (01:01→21:02)
[2021-05-19] MEDS: METOPROLOL TARTRATE 1 MG/ML VIAL IV PRN ×2 (01:22→16:41)
[2021-05-19] MEDS: ONDANSETRON INJ 2 MG/ML 2 ML VIAL IV PRN (01:25)
[2021-05-19 08:38] LABS: Hematocrit (blood only) 32.5 % (37-47); Hemoglobin 10.3 g/dL (12.0-16.0); Mean Corpuscular Hemoglobin 30.8 pg (25-34); Mean Corpuscular Hgb Conc 31.7 g/dL (32-36); Mean Corpuscular Volume 97.3 fL (80-100); Mean Platelet Volume 9.9 fL (7.4-10.4); Platelet Count 334 K/uL (130-400); RDW Coefficient of Variation 15.8 % (11.5-14.5); RDW Standard Deviation 56.1 fL (36.4-46.3); Red Blood Count 3.34 M/uL (4.2-5.4); White Blood Count 9.12 K/uL (4.8-10.8)
[2021-05-19 09:33] LABS: BUN Creatinine Ratio 13.9 (10-20); Creatinine Clr Calc Pharmacy 43.1 ml/min; Est GFR (African American) 72.4 ml/min; Est GFR (Non-African American) 62.5 ml/min; Potassium 3.2 mmol/L (3.5-5.1)
[2021-05-19] MEDS: ASPIRIN 81 MG ECTAB PO SCH (10:52)
[2021-05-19] MEDS: APIXABAN 5 MG TABLET PO SCH ×2 (10:52→21:00)
[2021-05-19] MEDS: CYANOCOBALAMIN (VITAMIN B-12) 2,500 MCG TAB.SUBL SL SCH (10:52)
[2021-05-19] MEDS: VENLAFAXINE HCL 37.5 MG TAB PO SCH ×2 (10:53→21:00)
[2021-05-19] MEDS: POTASSIUM CHLORIDE CRTAB 20 MEQ TABCR PO SCH (10:53)
[2021-05-19] MEDS: lamoTRIgine 100 MG TAB PO SCH (10:53)
[2021-05-19] MEDS: ROFLUMILAST 500 MCG TAB PO SCH (10:53)
[2021-05-19] MEDS: ONDANSETRON 4 MG OD TAB PO PRN (11:30)
--- NOTE | 2021-05-19 14:05 | XRay Report ---
KUB HISTORY: early satiety COMPARISON: Chest and abdominal series 09/29/2012. FINDINGS: The bowel gas pattern is unremarkable. There are no dilated loops of small bowel to suggest an obstruction. No renal calculi. No ureteral calculi. No pneumoperitoneum or pneumatosis. Prior ch olecystectomy and postoperative changes within the left hip. IMPRESSION: Unremarkable KUB. No evidence for bowel obstruction. ACT 112: Negative or not required by law. Electronically signed by: Kavon Yi M.D. 05/19/2021 2:04 PM
[2021-05-19] MEDS: cefTRIAXone SODIUM 1,000 MG in DEXTROSE 5% 50 ML IV SCH (16:43)
--- NOTE | 2021-05-19 17:39 | Gastrointestinal Consultation ---
Date of Consultation May 19, 2021 Assessment & Plan (1) Abnormal CT of the abdomen: (2) Anorexia: (3) Generalized weakness: (4) Abnormal weight loss: (5) Feeding difficulties: Etiology of weight loss and anorexia could be related to UTI, Polypharmacy, mental health issues or less likely mesenteric ischemia. Discussed case in Detail with Dr. Rodrigues Recommend CTA of the Abdomen, as previous CT Abd/pelvis on 04/16 showed evidence of proctocolitis and also a long segment of stenosis in the SMA. Continue Ceftriaxone for treatment of E. coli UTI Continue Psych meds as per Psychiatry Continue Pantoprazole 40 mg by mouth daily, but would change to each morning 1/2 hour prior to breakfast. Check stool for H. pylori Ag Continue Imodium 2 mg by mouth HS Continue Zofran PRN nausea. Family will decide on NG Tube feedings for nutritional support Appreciate Nutrition consult Will follow clinical course and make further recommendations as needed. History of Present Illness Reason for Consultation: Anorexia/Early Satiety Attending Physician: Aly Rodrigues History of Present Illness I had the pleasure of seeing Popeye Collier today in consultation secondary to anorexia and early satiety. She has an extensive PMHx and has had a prolonged hospital course. She did suffer a hip fracture earlier this year, and sellers bsequently developed A-fib with RVR in March requiring hospitalization into the first week of April. She returned to the ER on 05/08 with complaints of weakness, dehydration and diarrhea. During this admission she has been confused and has had a poor appetite and anorexia, with a noted 10 lb weight loss since her admission. Review of her medical record reveals an extensive GI workup in the past including an EGD by Dr. Garcia on 04/03/2021 for melena which was essentially normal. 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 The proctocolitis was not seen on prior CT imaging from earlier in March. Her most recent colonoscopy was performed by Dr. Garcia in July 2019, and she was found to have a tattoo in the ascending colon with a post-polypectomy scar. During this hospitalization she has had intermittent diarrhea. She has not had a good appetite throughout her hospitalization, and was seen by psychiatry who felt that some of her decreased PO intake is most likely secondary to her underlying psychiatric condition. She also was noted to have a UTI and has been treated with Ceftriaxone. At the time I saw her today she states that she has not appetite, and the thought of eating certain foods can make her nauseous. She states that even foods, that she previously found appetizing, "do not sit well with her." She denies any dysphagia, odynophagia, taste perversion, burning tongue, hematemesis, melena, or hematochezia. She denies any further complaints at this time, including abdominal pain, vomiting, fevers, chills, or jaundice. Allergies Allergy/AdvReac Type Severity Reaction Status Date / Time metoclopramide Allergy Intermediate ESSENTIAL Verified 05/08/21 19:53 TREMORS clopidogrel Allergy Mild HIVES Verified 05/08/21 19:53 diazepam Allergy Mild DEPRESSION Verified 05/08/21 19:53 diltiazem Allergy Mild Light Verified 05/08/21 19:53 headed erythromycin base Allergy Mild EES, TAKES Verified 05/08/21 19:53 Z-PACKS W/O RXN gabapentin Allergy Mild States Verified 05/08/21 19:53 hands catch fire latex Allergy Mild rips skin Verified 05/08/21 19:53 off lisinopril Allergy Mild COUGH Verified 05/08/21 19:53 losartan Allergy Mild HIVES Verified 05/08/21 19:53 micafungin Allergy Mild rash Verified 05/08/21 19:53 oxycodone Allergy Mild INC. Verified 05/08/21 19:53 DEPRESSION Penicillins Allergy Mild Diarrhea Verified 05/08/21 19:53 promethazine Allergy Mild TROUBLE Verified 05/08/21 19:53 FOCUSING SPEAKING AT HIGHER DOSES Sulfa (Sulfonamide Allergy Mild SKIN Verified 05/08/21 19:53 Antibiotics) BECOMES PHOTOSENSITIVE AND BECOMES RED bupropion Allergy Unknown unknown Verified 05/08/21 19:53 dicyclomine Allergy Unknown Unknown Verified 05/08/21 19:53 potassium chloride Allergy Unknown Unknown Verified 05/08/21 19:53 sucralfate Allergy Unknown Unknown Verified 05/08/21 19:53 Ruvpfah-Epb-Fue Reductase AdvReac Intermediate Diarrhea Verified 05/08/21 19:53 Inhibitor amoxicillin AdvReac Mild DIARRHEA Verified 05/08/21 19:53 clavulanic acid AdvReac Mild DIARRHEA Verified 05/08/21 19:53 hydrocodone AdvReac Mild "dont like Verified 05/08/21 19:53 how it makes me feel" Home Medications Medication Instructions Recorded Confirmed Type lamotrigine 150 mg PO QAM 01/01/19 05/08/21 History nitroglycerin [Nitrostat] 0.4 mg SUBLINGUAL UD PRN 01/01/19 05/08/21 History quetiapine 150 mg PO HS 01/01/19 05/08/21 History roflumilast 500 mcg PO QAM 01/01/19 05/08/21 History Oxygen Home #1 ea 07/21/20 04/10/21 History cholecalciferol (vitamin D3) 25 25 mcg PO DAILY 01/11/21 05/08/21 History mcg (1,000 unit) capsule cyanocobalamin (vitamin B-12) 5,000 mcg PO DAILY 01/11/21 05/08/21 History 5,000 mcg capsule ipratropium 20 mcg-albuterol 100 2 puff INHALATION Q6H PRN g 01/11/21 05/08/21 History mcg/actuation mist for inhalation rosuvastatin 10 mg tablet 10 mg PO HS 01/11/21 05/08/21 History ferrous gluconate 324 mg PO BIDM #60 tab 03/11/21 05/08/21 Rx ondansetron HCl [Zofran] 4 mg PO Q8H PRN #6 tab 03/11/21 05/08/21 Rx pregabalin 75 mg PO HS #30 cap 03/11/21 05/08/21 Rx Eliquis 5 mg PO BID #30 tab 04/04/21 05/08/21 Rx aspirin 81 mg PO DAILY 30 Days #30 tab 04/25/21 05/08/21 Rx digoxin [Digitek] 125 mcg PO DAILY@1600 30 Days #30 04/25/21 05/08/21 Rx tab loperamide 2 mg PO HS 30 Days #30 cap 04/25/21 05/08/21 Rx metoprolol tartrate 25 mg PO BID 30 Days #60 tab 04/25/21 05/08/21 Rx omeprazole 20 mg PO HS 05/08/21 05/08/21 History potassium chloride 20 meq PO QAM 05/08/21 05/08/21 History venlafaxine 37.5 mg PO QAM 05/08/21 05/08/21 History Patient History Medical History Anemia REASON FOR COLONOSCOPY 07/2019 Atrial fibrillation Atrial fibrillation with rapid ventricular response Bipolar 1 disorder Breast cancer (08/23/14) "Abnormal bilateral mammogram Status post core needle biopsy 08/23/2014 revealing intraductal papilloma on the left Right breast showed invasive ductal carcinoma Status post right lumpectomy and sentinel lymph node biopsy 10/08/2014 Stage [id number] Status post completion of radiation therapy 12/24/2014 utilizing hypo- fractionation received 5000 cGy" Breast cancer, right 2014--stage 1--lumpectomy and radiation Change in vision Chronic obstructive pulmonary disease inhaler daily Degenerative joint disease Depression Elevated troponin I level Fall GERD (gastroesophageal reflux disease) History of colon polyps Hyperlipidemia Hypertension Hypokalemia Hypothyroidism Medical marijuana use Myocardial Infarction "silent" in s--follows with Dr. Gibbs On home oxygen therapy 2L N/C at hs Pancreatitis hx of Papilloma of breast left Sleep apnea Temporal arteritis Unstable angina Unstable angina Surgical History History of bilateral cataract extraction History of bilateral tubal ligation History of breast surgery removal of papilloma of left breast History of cardiac cath x3--last ---no stents History of cholecystectomy History of colonoscopy History of esophagogastroduodenoscopy (EGD) History of lumpectomy of right breast History of right breast biopsy malignant History of tooth extraction all teeth removed History of total hysterectomy with bilateral salpingo-oophorectomy (BSO) Family History Grandfather (Paternal) Family history of diabetes mellitus Other No family history of adverse response to anesthesia Social History Smoking Status: Former smoker Cigarettes Per Day: 20 a day; Second Hand Exposure: No; Hx Alcohol Use: No Hx Substance Use: No Preferred Language: Albanian Communication Ability: Impaired Masonry Inspector Required: No Beliefs That Will Affect Care: None Current Living Situation: Spouse Feels Safe at Home: Yes Assistive Devices: Glasses and Oxygen - at Night Review of Systems Review of Systems: All systems reviewed & are unremarkable except as noted in Subjective Physical Exam Constitutional: + ill appearing and + obese; no acute distress Eyes: + anicteric sclerae ENMT: Ears: no hearing impairment Neck: normal visual inspection Respiratory: normal respiratory effort, lungs clear to auscultation Cardiovascular: Rate/Rhythm: + irregularly irregular Gastrointestinal (Abdomen): Inspection/Auscultation: normal bowel sounds and + abdominal wall ecchymosis (From Lovenox injections per the patient); abdomen not distended Percussion/Palpation: abdomen soft; abdomen nontender, no guarding, abdomen not rigid and no hepatosplenomegaly Skin: no rashes Psychiatric: Orientation: alert, oriented to person and oriented to place Affect: + depressed affect Results & Data ([facility]) Vital Signs (Past 12 Hours) Vital Signs Temp Pulse Pulse Resp BP BP Pulse Ox 05/19/21 16:41 130 H 170/82 H 05/19/21 16:19 36.8 C 115 H 20 167/80 H 92 05/19/21 15:39 117 H 05/19/21 11:27 36.7 C 91 H 19 177/81 H 98 05/19/21 07:27 36.4 C L 89 18 166/77 H 97 05/19/21 07:21 101 H PG Care Time/CCT Total # of Minutes Spent Total Time Spent with Patient: Total time spent is greater than 50% in coordination of care (as documented) at patient's floor/unit and/or counseling patient: Coding Level of Care Code 58556 Initial Inpt Care Lvl [address] of the abdomen R93.5 Anorexia R63.0 Generalized weakness R53.1 Abnormal weight loss R63.4 Feeding difficulties R63.3
[2021-05-19] MEDS ORDERED: OPTIRAY 320 125ml IV ONE (18:33)
--- NOTE | 2021-05-19 18:49 | CT Scan Report ---
CT angio abdomen w con HISTORY: Evaluate for superior mesenteric artery stenosis. TECHNIQUE: Multiaxial CT images of the abdomen were performed following the intravenous administratio n of 120 cc of Optiray 320 to evaluate the major arterial structures. Maximal intensity projection im ages were also obtained. COMPARISON STUDY: Abdomen and pelvis CT 04/16/2021. FINDINGS: Mild dependent changes seen within the lung bases posteriorly. No fractures within the visu alized osseous structures. The heart remains mildly enlarged. Mild to moderate calcified plaque withi n the normal caliber abdominal aorta and iliac arteries. No evidence for an aortic dissection or aneu rysm. Mild to moderate calcified plaque within the superior mesenteric artery resulting in mild focal stenosis of less than 30%. Hepatic steatosis. Cholecystectomy. The spleen, adrenal glands, and pancr eas are unremarkable. Moderate cortical renal thinning. No hydronephrosis. Stable 2.3 cm left renal c yst. No retroperitoneal lymphadenopathy. The visualized loops of bowel show no wall thickening or obs truction.. No evidence for a dissection or occlusion within the visualized arterial structures. Mild calcified plaque within the celiac artery without significant stenosis. There is moderate calcified p laque at the takeoff of the right renal artery resulting in mild stenosis of approximately 30%. No si gnificant stenosis within the left renal artery. The inferior mesenteric artery appears patent. IMPRESSION: 1. Mild multifocal stenosis of less than 30% involving the superior mesenteric artery and proximal ri ght renal artery. 2. No high-grade stenosis within the visualized abdominal vessels. ACT 112: Negative or not required by law. Electronically signed by: Kavon Yi M.D. 05/19/2021 6:48 PM
[2021-05-19] MEDS: PANTOprazole 40 MG TAB PO SCH (19:21)
[2021-05-19] MEDS: PREGABALIN 75 MG CAP PO SCH (21:00)
[2021-05-19] MEDS: MIRTAZAPINE TAB 15 MG TAB PO SCH (21:00)
[2021-05-19] MEDS: LOPERAMIDE HCL 2 MG CAP PO SCH (21:00)
[2021-05-19] MEDS: ROSUVASTATIN CALCIUM 10 MG TAB PO SCH (21:01)
--- NOTE | 2021-05-19 22:11 | Hospitalist Progress Note ---
Date of Service May 19, 2021 Assessment & Plan (1) Anorexia: main issue, not eating at all, maybe two bites today gave her another liter of D5W on 05/12 no response to Effexor will conitnue Marinol 2.5mg BID and titrate upward to see if we can get a response will increase Remeron to 15mg HS her and I tell her every day that she needs to eat she denies abdominal pain, nausea likely that depressed mood playing a big role maybe Digoxin is causing anorexia and depression? started this last month will discontinue it consult psychiatry given her complex mental health history will consult customer quality specialist as concern over her decreased oral intake. poor prognosis. Appreciate input from customer quality specialist. Had discussion with pharmacy and nutrition, given risks of parenteral nutrition, recommended to revisit nutrition options. Patient is now refusing NG tube. Will consult GI for input. Will obtain CT scan with contrast and check for SMA stenosis. (2) Atrial fibrillation: on eliquis for anticoagulation bradycardia on 05/12, could be tachybrady syndrome, HR in 40's, no symptoms EKG showed afib with slow AV conduction digoxin is 1.8, held digoxin on 05/12, HR up to 70-80s reduced metoprolol to 12.5mg BID will now stop Digoxin as it might be contributing to anorexia and depression? monitor rates on tele, can go up on metoprolol if HR goes up (3) Acute kidney injury: Creatinine 1.46 upon admission, with baseline 0.69. Potassium 2.8 upon admission. Likely brought on by diarrhea and decreased oral intake Received potassium 40 mEq p.o. in the ED. Cr improved to baseline, no IV fluids today hypernatremia resolved (4) Hypokalemia: will monitor, resume supplementation (5) Diarrhea: Work-up at last admission was C. difficile negative, stool culture negative, and improved with Cipro and Flagyl treatment for nonspecific proctocolitis noted on CT of abdomen pelvis on 04/16 Nurses report that she had 3 bowel movements in the emergency department, but they were of normal caliber Her symptoms had improved with Imodium and Questran during last admission. Continue loperamide 2 mg p.o. at bedtime. Resume Questran, which is presently not on her medication list and unclear if it was discontinued or dropped off small mucous like stool today, sent for C diff - NEGATIVE but overall less stools (6) Generalized weakness: history of profound weakness with infection and stress was supposed to follow up with [facility] neurology movement disorder will need a single fiber EMG has been tested for myasthenia gravis and [facility] in the past, negative order PT/OT not eating enough to give her energy, try to stimulate appetite with Remeron and Marinol (7) GERD (gastroesophageal reflux disease): Continue omeprazole 20 mg daily for now (8) Hypothyroid: Is a diagnosis of hypothyroidism, is not on any thyroid hormone replacement (9) Anxiety: Bipolar 1 disorder/Anxiety with depression- Was noted in the past to be contributing to overall symptomatology Continue lamotrigine, pregabalin, quetiapine and venlafaxine (increase to 37.5mg BID) and will add Remeron 15mg HS consult psych: appreciate input (10) Bipolar 1 disorder: See above (11) Depression: See above severe, not eating well, lacks motivation continue Effexor, Remeron (12) COPD (chronic obstructive pulmonary disease): Continue as needed duo nebs (13) Hyperlipidemia: Continue rosuvastatin (14) Hypertension: See above (15) COVID-19 virus infection: Patient did have full vaccine in January 2021 Was noted to be positive on 04/10 and 04/25/2021, but was not felt to be need to be treated due to no symptomatology. She again has no symptoms. remove isolation precautions Admission and Anticipated Discharge Date Admission Date: May 08, 2021 Subjective Had discussion with daughter today. Explained plan. Review of Systems Review of Systems: All systems reviewed & are unremarkable except as noted in HPI & below Physical Exam Physical Exam: Constitutional: well developed, + thin and + frail appearing; no acute distress Neck: trachea midline, no thyromegaly Respiratory: normal respiratory effort, lungs clear to auscultation Cardiovascular: Rate/Rhythm: regular rate and + irregularly irregular Heart Sounds: normal S1 and normal S2; no murmur Gastrointestinal (Abdomen): normal bowel sounds, soft, nontender, no hepatosplenomegaly Musculoskeletal: Head/Neck/Chest: normocephalic, head atraumatic and neck suppl e Extremities: extremities normal to inspection and + abnormal strength (generalized weakness, cannot stand up); no cyanosis, no clubbing and no petechiae Skin: no rashes, warm and dry Neurologic: patellar DTR's 2+ bilat, sensation intact and PERRL, EOMI, accommodation nl, no face palsy, no dysarthria Psychiatric: Orientation: alert and oriented x 3 Lymphatic: no cervical or axillary lymphadenopathy Results & Data Results & Data ([facility]) Vital Signs (Past 12 Hours) Vital Signs Temp Pulse Pulse Resp BP BP Pulse Ox 05/19/21 19:00 36.6 C 102 H 20 170/92 H 92 05/19/21 16:41 130 H 170/82 H 05/19/21 16:19 36.8 C 115 H 20 167/80 H 92 05/19/21 15:39 117 H 05/19/21 11:27 36.7 C 91 H 19 177/81 H 98 PG Care Time/CCT Total # of Minutes Spent Total Time Spent with Patient: Total time spent is greater than 50% in coordination of care (as documented) at patient's floor/unit and/or counseling patient: Coding Level of Care Code 07281 Subseq Hosp Care Lvl 2 Diagnoses Anorexia R63.0 Atrial fibrillation I48.91 Acute kidney injury N17.9 Hypokalemia E87.6 Diarrhea R19.7 Diarrhea type: unspecified type Generalized weakness R53.1 GERD (gastroesophageal reflux disease) K21.9 Hypothyroid E03.9 Hypothyroidism type: unspecified Anxiety F41.9 Bipolar 1 disorder F31.9 Depression F32.9 COPD (chronic obstructive pulmonary disease) J44.9 COPD type: unspecified COPD Hyperlipidemia E78.5 Hyperlipidemia type: unspecified Hypertension I10 Hypertension type: essential hypertension COVID-19 virus infection U07.1 Time Spent (min) 25 (1) Diarrhea Diarrhea type: unspecified type Qualified Code(s): R19.7 - Diarrhea, unspecified (2) Hyperlipidemia Hyperlipidemia type: unspecified Qualified Code(s): E78.5 - Hyperlipidemia, unspecified (3) Hypothyroid Hypothyroidism type: unspecified Qualified Code(s): E03.9 - Hypothyroidism, unspecified (4) COPD (chronic obstructive pulmonary disease) COPD type: unspecified COPD Qualified Code(s): J44.9 - Chronic obstructive pulmonary disease, unspecified (5) Hypertension Hypertension type: essential hypertension Qualified Code(s): I10 - Essential (primary) hypertension
[2021-05-20] MEDS: APIXABAN 5 MG TABLET PO SCH ×2 (08:31→21:21)
[2021-05-20] MEDS: ASPIRIN 81 MG ECTAB PO SCH (08:31)
[2021-05-20] MEDS: CYANOCOBALAMIN (VITAMIN B-12) 2,500 MCG TAB.SUBL SL SCH (08:32)
[2021-05-20] MEDS: METOPROLOL TARTRATE 25 MG TAB PO SCH ×2 (08:32→21:21)
[2021-05-20] MEDS: lamoTRIgine 100 MG TAB PO SCH (08:33)
[2021-05-20] MEDS: ROFLUMILAST 500 MCG TAB PO SCH (08:33)
[2021-05-20] MEDS: PANTOprazole 40 MG TAB PO SCH (08:33)
[2021-05-20] MEDS: POTASSIUM CHLORIDE CRTAB 20 MEQ TABCR PO SCH (08:33)
[2021-05-20 08:34] LABS: Hematocrit (blood only) 31.4 % (37-47); Hemoglobin 9.8 g/dL (12.0-16.0); Mean Corpuscular Hemoglobin 30.4 pg (25-34); Mean Corpuscular Hgb Conc 31.2 g/dL (32-36); Mean Corpuscular Volume 97.5 fL (80-100); Mean Platelet Volume 9.6 fL (7.4-10.4); Platelet Count 288 K/uL (130-400); RDW Coefficient of Variation 15.6 % (11.5-14.5); Red Blood Count 3.22 M/uL (4.2-5.4); White Blood Count 7.87 K/uL (4.8-10.8)
[2021-05-20] MEDS: VENLAFAXINE HCL 37.5 MG TAB PO SCH ×2 (08:34→21:21)
[2021-05-20] MEDS: METOPROLOL TARTRATE 1 MG/ML VIAL IV PRN ×2 (08:55→19:09)
[2021-05-20 09:09] LABS: BUN Creatinine Ratio 11.4 (10-20); Calcium 8.9 mg/dl (8.5-10.1); Creatinine Clr Calc Pharmacy 38.8 ml/min; Est GFR (African American) 63.6 ml/min; Est GFR (Non-African American) 54.9 ml/min; Potassium 3.3 mmol/L (3.5-5.1)
--- NOTE | 2021-05-20 10:46 | Gastroenterology Progress Note ---
Date of Service May 20, 2021 Assessment & Plan (1) Abnormal CT of the abdomen: (2) Feeding difficulties: (3) Abnormal weight loss: (4) Anorexia: Still with minimum PO intake CTA of the Abdomen was normal H. pylori stool Ag ordered Celiac panel ordered Will check CMP, Amylase and Lipase today Continue Pantoprazole 40 mg PO QAM Continue Zofran PRN Continue Imodium 2 mg by mouth HS Continue Marinol for appetite stimulation Tube feeds have not been initiated at this point Admission and Anticipated Discharge Date Admission Date: May 08, 2021 Subjective Nursing reports pulse up to 180's earlier today, but has responded to metoprolol therapy. She continues to eat only a minimum amount of food despite encouragement. She did have a BM this AM. She does complain of some epigastric pain today with no complaints of nausea or vomiting. She describes the pain as mild, non-radiating, without alleviating factors. She denies any further complaints. Physical Exam Constitutional: no acute distress Respiratory: normal respiratory effort; no respiratory distress and no labored breathing Cardiovascular: Rate/Rhythm: + irregularly irregular Gastrointestinal (Abdomen): Inspection/Auscultation: abdomen normal to inspection and normal bowel sounds; abdomen not distended Percussion/Palpation: + abdomen tender (epigastric ) and abdomen soft; no guarding and abdomen not rigid Psychiatric: Orientation: alert, oriented to person and oriented to place Results & Data Results & Data ([facility]) Vital Signs (Past 12 Hours) Vital Signs Temp Pulse Pulse Resp BP BP Pulse Ox 05/20/21 08:55 163 H 109/78 05/20/21 08:02 36.2 C L 96 H 18 109/78 90 05/20/21 04:06 36.7 C 96 H 20 165/72 H 92 05/19/21 23:19 36.5 C 84 20 134/71 94 PG Care Time/CCT Total # of Minutes Spent Total Time Spent with Patient: Total time spent is greater than 50% in coordination of care (as documented) at patient's floor/unit and/or counseling patient: Coding Level of Care Code 47099 Subseq Hosp Care Lvl [address] of the abdomen R93.5 Feeding difficulties R63.3 Abnormal weight loss R63.4 Anorexia R63.0
[2021-05-20 11:20] LABS: Albumin Level 2.1 gm/dl (3.4-5.0); Bilirubin Direct 0.1 mg/dl (0-0.2); Bilirubin,Total 0.3 mg/dl (0.2-1); Total Protein 6.2 gm/dl (6.4-8.2)
[2021-05-20] MEDS: cefTRIAXone SODIUM 1,000 MG in DEXTROSE 5% 50 ML IV SCH (17:28)
[2021-05-20] MEDS: LOPERAMIDE HCL 2 MG CAP PO SCH (21:21)
[2021-05-20] MEDS: PREGABALIN 75 MG CAP PO SCH (21:21)
[2021-05-20] MEDS: MIRTAZAPINE TAB 15 MG TAB PO SCH (21:22)
[2021-05-20] MEDS: ROSUVASTATIN CALCIUM 10 MG TAB PO SCH (21:22)
--- NOTE | 2021-05-20 22:15 | Hospitalist Progress Note ---
Date of Service May 20, 2021 Assessment & Plan (1) Anorexia: main issue, not eating at all, maybe two bites today gave her another liter of D5W on 05/12 no response to Effexor will conitnue Marinol 2.5mg BID and titrate upward to see if we can get a response will increase Remeron to 15mg HS her and I tell her every day that she needs to eat she denies abdominal pain, nausea likely that depressed mood playing a big role maybe Digoxin is causing anorexia and depression? started this last month will discontinue it consult psychiatry given her complex mental health history will consult motor vehicle assembly supervisor as concern over her decreased oral intake. poor prognosis. Appreciate input from motor vehicle assembly supervisor. Had discussion with pharmacy and nutrition, given risks of parenteral nutrition, recommended to revisit nutrition options. Patient and family now agreeable to NG tube feedings, risks and benefits were discussed. Such as aspiration pneumonia. Appreciate input from GI: Still with minimum PO intake CTA of the Abdomen was normal H. pylori stool Ag ordered Celiac panel ordered Will check CMP, Amylase and Lipase today Continue Pantoprazole 40 mg PO QAM Continue Zofran PRN Continue Imodium 2 mg by mouth HS Continue Marinol for appetite stimulation Tube feeds have not been initiated at this point (2) Atrial fibrillation: on eliquis for anticoagulation bradycardia on 05/12, could be tachybrady syndrome, HR in 40's, no symptoms EKG showed afib with slow AV conduction digoxin is 1.8, held digoxin on 05/12, HR up to 70-80s reduced metoprolol to 12.5mg BID will now stop Digoxin as it might be contributing to anorexia and depression? monitor rates on tele, can go up on metoprolol if HR goes up (3) Acute kidney injury: Creatinine 1.46 upon admission, with baseline 0.69. Potassium 2.8 upon admission. Likely brought on by diarrhea and decreased oral intake Received potassium 40 mEq p.o. in the ED. Cr improved to baseline, no IV fluids today hypernatremia resolved (4) Hypokalemia: will monitor, resume supplementation (5) Diarrhea: Work-up at last admission was C. difficile negative, stool culture negative, and improved with Cipro and Flagyl treatment for nonspecific proctocolitis noted on CT of abdomen pelvis on 04/16 Nurses report that she had 3 bowel movements in the emergency department, but they were of normal caliber Her symptoms had improved with Imodium and Questran during last admission. Continue loperamide 2 mg p.o. at bedtime. Resume Questran, which is presently not on her medication list and unclear if it was discontinued or dropped off small mucous like stool today, sent for C diff - NEGATIVE but overall less stools (6) Generalized weakness: history of profound weakness with infection and stress was supposed to follow up with [facility] movement disorder will need a single fiber EMG has been tested for myasthenia gravis and [facility] in the past, negative order PT/OT not eating enough to give her energy, try to stimulate appetite with Remeron and Marinol (7) GERD (gastroesophageal reflux disease): Continue omeprazole 20 mg daily for now (8) Hypothyroid: Is a diagnosis of hypothyroidism, is not on any thyroid hormone replacement (9) Anxiety: Bipolar 1 disorder/Anxiety with depression- Was noted in the past to be contributing to overall symptomatology Continue lamotrigine, pregabalin, quetiapine and venlafaxine (increase to 37.5mg BID) and will add Remeron 15mg HS consult psych: appreciate input (10) Bipolar 1 disorder: See above (11) Depression: See above severe, not eating well, lacks motivation continue Effexor, Remeron (12) COPD (chronic obstructive pulmonary disease): Continue as needed duo nebs (13) Hyperlipidemia: Continue rosuvastatin (14) Hypertension: See above (15) COVID-19 virus infection: Patient did have full vaccine in January 2021 Was noted to be positive on 04/10 and 04/25/2021, but was not felt to be need to be treated due to no symptomatology. She again has no symptoms. remove isolation precautions Admission and Anticipated Discharge Date Admission Date: May 08, 2021 Subjective Patient is a 81 yo female who reports no new symptoms. As per nurse, patient is not eating. Review of Systems Review of Systems: All systems reviewed & are unremarkable except as noted in HPI & below Physical Exam Physical Exam: Constitutional: well developed, + thin and + frail appearing; no acute distress Neck: trachea midline, no thyromegaly Respiratory: normal respiratory effort, lungs clear to auscultation Cardiovascular: Rate/Rhythm: regular rate and + irregularly irregular Heart Sounds: normal S1 and normal S2; no murmur Gastrointestinal (Abdomen): normal bowel sounds, soft, nontender, no hepatosplenomegaly Musculoskeletal: Head/Neck/Chest: normocephalic, head atraumatic and neck supple Extremities: extremities normal to inspection and + abnormal strength (generalized weakness, cannot stand up); no cyanosis, no clubbing and no petechiae Skin: no rashes, warm and dry Neurologic: patellar DTR's 2+ bilat, sensation intact and PERRL, EOMI, accommodation nl, no face palsy, no dysarthria Psychiatric: Orientation: alert and oriented x 3 Lymphatic: no cervical or axillary lymphadenopathy Results & Data Results & Data ([facility]) Vital Signs (Past 12 Hours) Vital Signs Temp Pulse Pulse Resp BP BP Pulse Ox 05/20/21 19:12 36.7 C 134 H 18 143/75 H 93 05/20/21 19:09 124 H 148/82 H 05/20/21 19:06 124 H 148/82 H 05/20/21 17:35 68 135/80 05/20/21 15:32 36.7 C 97 H 20 125/71 91 05/20/21 14:21 119 H 05/20/21 12:42 36.7 C 92 H 20 102/67 91 PG Care Time/CCT Total # of Minutes Spent Total Time Spent with Patient: Total time spent is greater than 50% in coordination of care (as documented) at patient's floor/unit and/or counseling patient: Coding Level of Care Code 47855 Subseq Hosp Care Lvl 2 Diagnoses Anorexia R63.0 Atrial fibrillation I48.91 Acute kidney injury N17.9 Hypokalemia E87.6 Diarrhea R19.7 Diarrhea type: unspecified type Generalized weakness R53.1 GERD (gastroesophageal reflux disease) K21.9 Hypothyroid E03.9 Hypothyroidism type: unspecified Anxiety F41.9 Bipolar 1 disorder F31.9 Depression F32.9 COPD (chronic obstructive pulmonary disease) J44.9 COPD type: unspecified COPD Hyperlipidemia E78.5 Hyperlipidemia type: unspecified Hypertension I10 Hypertension type: essential hypertension COVID-19 virus infection U07.1 Time Spent (min) 25 (1) Diarrhea Diarrhea type: unspecified type Qualified Code(s): R19.7 - Diarrhea, unspecified (2) Hyperlipidemia Hyperlipidemia type: unspecified Qualified Code(s): E78.5 - Hyperlipidemia, unspecified (3) Hypothyroid Hypothyroidism type: unspecified Qualified Code(s): E03.9 - Hypothyroidism, unspecified (4) COPD (chronic obstructive pulmonary disease) COPD type: unspecified COPD Qualified Code(s): J44.9 - Chronic obstructive pulmonary disease, unspecified (5) Hypertension Hypertension type: essential hypertension Qualified Code(s): I10 - Essential (primary) hypertension
[2021-05-21] MEDS: APIXABAN 5 MG TABLET PO SCH ×2 (08:06→22:11)
[2021-05-21] MEDS: CYANOCOBALAMIN (VITAMIN B-12) 2,500 MCG TAB.SUBL SL SCH (08:06)
[2021-05-21] MEDS: ASPIRIN 81 MG ECTAB PO SCH (08:06)
[2021-05-21] MEDS: METOPROLOL TARTRATE 25 MG TAB PO SCH ×2 (08:07→22:11)
[2021-05-21] MEDS: lamoTRIgine 100 MG TAB PO SCH (08:07)
[2021-05-21] MEDS: VENLAFAXINE HCL 37.5 MG TAB PO SCH ×2 (08:08→22:12)
[2021-05-21] MEDS: ROFLUMILAST 500 MCG TAB PO SCH (08:08)
[2021-05-21] MEDS: PANTOprazole 40 MG TAB PO SCH (08:08)
[2021-05-21] MEDS: POTASSIUM CHLORIDE CRTAB 20 MEQ TABCR PO SCH (08:14)
[2021-05-21] MEDS: METOPROLOL TARTRATE 1 MG/ML VIAL IV PRN (08:45)
[2021-05-21] MEDS: cefTRIAXone SODIUM 1,000 MG in DEXTROSE 5% 50 ML IV SCH (15:21)
[2021-05-21] MEDS: LOPERAMIDE HCL 2 MG CAP PO SCH (22:11)
[2021-05-21] MEDS: MIRTAZAPINE TAB 15 MG TAB PO SCH (22:11)
[2021-05-21] MEDS: PREGABALIN 75 MG CAP PO SCH (22:11)
[2021-05-21] MEDS: ROSUVASTATIN CALCIUM 10 MG TAB PO SCH (22:12)
--- NOTE | 2021-05-21 23:44 | Hospitalist Progress Note ---
Date of Service May 21, 2021 Assessment & Plan (1) Anorexia: main issue, not eating at all, maybe two bites today gave her another liter of D5W on 05/12 no response to Effexor will conitnue Marinol 2.5mg BID and titrate upward to see if we can get a response will increase Remeron to 15mg HS her and I tell her every day that she needs to eat she denies abdominal pain, nausea likely that depressed mood playing a big role maybe Digoxin is causing anorexia and depression? started this last month will discontinue it consult psychiatry given her complex mental health history will consult front office agent as concern over her decreased oral intake. She has a poor prognosis if she is unable to increase her calorie intake. However, over the past 48 hours, she has been eating more and today, had 75% of her breakfast and 50% of her lunch. She also has been enjoying chocolate ice cream. Appreciate input from front office agent. Will hold NG tube placement given how patient has been eating more. Appreciate input from GI (2) Atrial fibrillation: on eliquis for anticoagulation bradycardia on 05/12, could be tachybrady syndrome, HR in 40's, no symptoms EKG showed afib with slow AV conduction digoxin is 1.8, held digoxin on 05/12, HR up to 70-80s reduced metoprolol to 12.5mg BID will now stop Digoxin as it might be contributing to anorexia and depression? monitor rates on tele, can go up on metoprolol if HR goes up HR has been intermittently elevated, however, patient has been also intermittently refusing her metoprolol. Over the past day, she has been taking her dose with ice cream. Will monitor if her HR improves with this. If not may need to titrate (3) Acute kidney injury: Creatinine 1.46 upon admission, with baseline 0.69. Potassium 2.8 upon admission. Likely brought on by diarrhea and decreased oral intake Received potassium 40 mEq p.o. in the ED. Cr improved to baseline, no IV fluids today hypernatremia resolved (4) Hypokalemia: will monitor, resume supplementation (5) Diarrhea: Work-up at last admission was C. difficile negative, stool culture negative, and improved with Cipro and Flagyl treatment for nonspecific proctocolitis noted on CT of abdomen pelvis on 04/16 Nurses report that she had 3 bowel movements in the emergency department, but they were of normal caliber Her symptoms had improved with Imodium and Questran during last admission. Continue loperamide 2 mg p.o. at bedtime. Resume Questran, which is presently not on her medication list and unclear if it was discontinued or dropped off small mucous like stool today, sent for C diff - NEGATIVE but overall less stools (6) Generalized weakness: history of profound weakness with infection and stress was supposed to follow up with [facility] movement disorder will need a single fiber EMG has been tested for myasthenia gravis and [facility] in the past, negative order PT/OT not eating enough to give her energy, try to stimulate appetite with Remeron and Marinol (7) GERD (gastroesophageal reflux disease): Continue omeprazole 20 mg daily for now (8) Hypothyroid: Is a diagnosis of hypothyroidism, is not on any thyroid hormone replacement (9) Anxiety: Bipolar 1 disorder/Anxiety with depression- Was noted in the past to be contributing to overall symptomatology Continue lamotrigine, pregabalin, quetiapine and venlafaxine (increase to 37.5mg BID) and will add Remeron 15mg HS consult psych: appreciate input (10) Bipolar 1 disorder: See above (11) Depression: See above severe, not eating well, lacks motivation continue Effexor, Remeron (12) COPD (chronic obstructive pulmonary disease): Continue as needed duo nebs (13) Hyperlipidemia: Continue rosuvastatin (14) Hypertension: See above (15) COVID-19 virus infection: Patient did have full vaccine in January 2021 Was noted to be positive on 04/10 and 04/25/2021, but was not felt to be need to be treated due to no symptomatology. She again has no symptoms. remove isolation precautions Have been updating Daughter throughout the week. Unable to reach her on 05/21 Left detailed message. Admission and Anticipated Discharge Date Admission Date: May 08, 2021 Subjective 81 yo female reports she is trying to eat more. It appears she had 75% of her breakfast as per nursing. (colombian toast) And 50% of her lunch. She is trying to eat. Review of Systems Review of Systems: All systems reviewed & are unremarkable except as noted in HPI & below Physical Exam Physical Exam: Constitutional: well developed, + thin and + frail appearing; no acute distress Neck: trachea midline, no thyromegaly Respiratory: normal respiratory effort, lungs clear to auscultation Cardiovascular: Rate/Rhythm: regular rate and + irregularly irregular Heart Sounds: normal S1 and normal S2; no murmur Gastrointestinal (Abdomen): normal bowel sounds, soft, nontender, no hepatosplenomegaly Musculoskeletal: Head/Neck/Chest: normocephalic, head atraumatic and neck supple Extremities: extremities normal to inspection and + abnormal strength (generalized weakness, cannot stand up); no cyanosis, no clubbing and no petechiae Skin: no rashes, warm and dry Neurologic: patellar DTR's 2+ bilat, sensation intact and PERRL, EOMI, accommodation nl, no face palsy, no dysarthria Psychiatric: Orientation: alert and oriented x 3 Lymphatic: no cervical or axillary lymphadenopathy Results & Data Results & Data ([facility]) Vital Signs (Past 12 Hours) Vital Signs Temp Pulse Pulse Resp BP Pulse Ox 05/21/21 22:35 36.5 C 120 H 18 151/69 H 97 05/21/21 19:08 36.6 C 111 H 20 130/80 99 05/21/21 15:30 36.6 C 95 H 20 98 05/21/21 14:19 109 H 05/21/21 12:16 37.2 C 92 H 20 132/81 96 PG Care Time/CCT Total # of Minutes Spent Total Time Spent with Patient: Total time spent is greater than 50% in coordination of care (as documented) at patient's floor/unit and/or counseling patient: Coding Level of Care Code 74772 Subseq Hosp Care Lvl 2 Diagnoses Anorexia R63.0 Atrial fibrillation I48.91 Acute kidney injury N17.9 Hypokalemia E87.6 Diarrhea R19.7 Diarrhea type: unspecified type Generalized weakness R53.1 GERD (gastroesophageal reflux disease) K21.9 Hypothyroid E03.9 Hypothyroidism type: unspecified Anxiety F41.9 Bipolar 1 disorder F31.9 Depression F32.9 COPD (chronic obstructive pulmonary disease) J44.9 COPD type: unspecified COPD Hyperlipidemia E78.5 Hyperlipidemia type: unspecified Hypertension I10 Hypertension type: essential hypertension COVID-19 virus infection U07.1 Time Spent (min) 25 (1) Diarrhea Diarrhea type: unspecified type Qualified Code(s): R19.7 - Diarrhea, unspecified (2) Hyperlipidemia Hyperlipidemia type: unspecified Qualified Code(s): E78.5 - Hyperlipidemia, unspecified (3) Hypothyroid Hypothyroidism type: unspecified Qualified Code(s): E03.9 - Hypothyroidism, unspecified (4) COPD (chronic obstructive pulmonary disease) COPD type: unspecified COPD Qualified Code(s): J44.9 - Chronic obstructive pulmonary disease, unspecified (5) Hypertension Hypertension type: essential hypertension Qualified Code(s): I10 - Essential (primary) hypertension
[2021-05-22] MEDS: ROFLUMILAST 500 MCG TAB PO SCH (09:12)
[2021-05-22] MEDS: APIXABAN 5 MG TABLET PO SCH ×2 (09:12→20:54)
[2021-05-22] MEDS: PANTOprazole 40 MG TAB PO SCH (09:12)
[2021-05-22] MEDS: CYANOCOBALAMIN (VITAMIN B-12) 2,500 MCG TAB.SUBL SL SCH (09:13)
[2021-05-22] MEDS: ASPIRIN 81 MG ECTAB PO SCH (09:13)
[2021-05-22] MEDS ORDERED: METOPROLOL TARTRATE 25 MG TAB PO STA (09:18)
[2021-05-22] MEDS ORDERED: METOPROLOL TARTRATE 1 MG/ML VIAL IV STA (09:18)
[2021-05-22] MEDS: POTASSIUM CHLORIDE CRTAB 20 MEQ TABCR PO SCH (09:18)
[2021-05-22] MEDS: METOPROLOL TARTRATE 1 MG/ML VIAL IV PRN (09:27)
--- NOTE | 2021-05-22 09:29 | Hospitalist Progress Note ---
Date of Service May 22, 2021 Assessment & Plan (1) Atrial fibrillation: on eliquis for anticoagulation bradycardia on 05/12, could be tachybrady syndrome, HR in 40's, no symptoms EKG showed afib with slow AV conduction digoxin is 1.8, held digoxin on 05/12, HR up to 70-80s reduced metoprolol to 12.5mg BID will now stop Digoxin as it might be contributing to anorexia and depression? monitor rates on tele, can go up on metoprolol if HR goes up RVR the morning of 05/22, rates in 140-150 while sitting in bed, no chest pain/pressure will give extra 12.5mg Lopressor for 25mg BID and will give Lopressor 5mg IV x 1 check electrolytes this morning follow rates on monitor for goal of < 100 (2) Anorexia: main issue, not eating at all for about two weeks gave her another liter of D5W on 05/12 no response to Effexor will increase Marinol to 5mg BID today continue Remeron to 15mg HS her and I tell her every day that she needs to eat she denies abdominal pain, nausea likely that depressed mood playing a big role maybe Digoxin is causing anorexia and depression? started this last month will discontinue it over past two days she has been eating a little more, hold on tube feeds did not like what she had for breakfast, will see if she eats lunch/dinner today (3) Acute kidney injury: Creatinine 1.46 upon admission, with baseline 0.69. Potassium 2.8 upon admission. Likely brought on by diarrhea and decreased oral intake Cr improved to baseline after IV fluids hypernatremia resolved check BMP today (4) Hypokalemia: will monitor, resume supplementation check BMP this morning due to afib RVR (5) Diarrhea: Work-up at last admission was C. difficile negative, stool culture negative, and improved with Cipro and Flagyl treatment for nonspecific proctocolitis noted on CT of abdomen pelvis on 04/16 Nurses report that she had 3 bowel movements in the emergency department, but they were of normal caliber Her symptoms had improved with Imodium and Questran during last admission. Continue loperamide 2 mg p.o. at bedtime. Resume Questran, which is presently not on her medication list and unclear if it was discontinued or dropped off small mucous like stool today, sent for C diff - NEGATIVE but overall less stools celiac testing ordered per GI (6) Generalized weakness: history of profound weakness with infection and stress was supposed to follow up with [facility] movement disorder will need a single fiber EMG has been tested for myasthenia gravis and [facility] in the past, negative order PT/OT not eating enough to give her energy, try to stimulate appetite with Remeron and Marinol (7) GERD (gastroesophageal reflux disease): Continue omeprazole 20 mg daily for now (8) Hypothyroid: Is a diagnosis of hypothyroidism, is not on any thyroid hormone replacement (9) Anxiety: Bipolar 1 disorder/Anxiety with depression- Was noted in the past to be contributing to overall symptomatology Continue lamotrigine, pregabalin, quetiapine and venlafaxine (increase to 37.5mg BID) and will add Remeron 15mg HS consult psych: appreciate input (10) Bipolar 1 disorder: See above (11) Depression: See above severe, not eating well, lacks motivation continue Effexor, Remeron (12) COPD (chronic obstructive pulmonary disease): Continue as needed duo nebs (13) Hyperlipidemia: Continue rosuvastatin (14) Hypertension: See above (15) COVID-19 virus infection: Patient did have full vaccine in January 2021 Was noted to be positive on 04/10 and 04/25/2021, but was not felt to be need to be treated due to no symptomatology. She again has no symptoms. remove isolation precautions Admission and Anticipated Discharge Date Admission Date: May 08, 2021 Subjective patient laying in bed, no distress, but in afib RVR with rates 140's no chest pain/pressure, no dyspnea, no light headedness, no nausea she did not eat much for breakfast, claims that the rice crispies were not appealing reviewed chart from past week no labs this morning, will check them since she is in RVR, make sure electrolytes are normal Review of Systems Review of Systems: All systems reviewed & are unremarkable except as noted in Subjective Constitutional: + weakness Respiratory: no cough and no dyspnea Cardiovascular: no chest pain, no palpitations and no syncope Gastrointestinal: + early satiety and + nausea; no abdominal pain, no vomiting, no constipation and no diarrhea/loose stools Physical Exam Constitutional: well developed, + thin and + frail appearing; no acute distress Neck: trachea midline, no thyromegaly Respiratory: normal respiratory effort, lungs clear to auscultation Cardiovascular: Rate/Rhythm: + tachycardic and + irregularly irregular Heart Sounds: normal S1 and normal S2; no murmur Gastrointestinal (Abdomen): normal bowel sounds, soft, nontender, no hepatosplenomegaly Musculoskeletal: Head/Neck/Chest: normocephalic, head atraumatic and neck supple Extremities: extremities normal to inspection and + abnormal strength (generalized weakness, cannot stand up); no cyanosis, no clubbing and no petechiae Skin: no rashes, warm and dry Neurologic: patellar DTR's 2+ bilat, sensation intact and PERRL, EOMI, accommodation nl, no face palsy, no dysarthria Psychiatric: A+Ox3, euthymic affect Lymphatic: no cervical or axillary lymphadenopathy Results & Data Results & Data ([facility]) Vital Signs (Past 12 Hours) Vital Signs Temp Pulse Pulse Resp BP Pulse Ox 05/22/21 07:26 36.6 C 92 H 18 127/76 96 05/22/21 06:59 97 H 05/22/21 03:15 36.6 C 85 20 120/76 94 05/22/21 00:00 120 H 05/21/21 22:35 36.5 C 120 H 18 151/69 H 97 Medications Administered Current Inpatient Medications Acetaminophen (Acetaminophen 325 Mg Tab) 650 mg PO Q4H PRN PRN Reason: Pain or Fever Stop: 06/08/21 00:56 Albuterol (Albuterol Hfa 8 Gm Inhaler (Combivent Respimat P&T Subs)) 2 puffs INH Q6H PRN PRN Reason: Shortness Of Breath Stop: 06/08/21 02:27 Apixaban (Apixaban 5 Mg Tablet) 5 mg PO BID [facility] Stop: 06/08/21 00:56 Last Admin: 05/22/21 09:12 Dose: 5 mg Documented by: Aspirin (Aspirin 81 Mg Ectab) 81 mg PO DAILY [facility] Stop: 06/08/21 08:59 Last Admin: 05/22/21 09:13 Dose: 81 mg Documented by: Cyanocobalamin (Cyanocobalamin (Vitamin B-12) 2,500 Mcg Tab.Subl) 5,000 mcg SL DAILY [facility] Stop: 06/08/21 08:59 Last Admin: 05/22/21 09:13 Dose: 5,000 mcg Documented by: Dronabinol (Dronabinol 2.5 Mg Cap) 2.5 mg PO BID [facility] Stop: 06/12/21 08:59 Last Admin: 05/22/21 09:12 Dose: 2.5 mg Documented by: Enteral Nutritional Formula (Peptamen 1.5 Tian 1,000 Ml Bag) 1,000 ml NG UD [facility]; Protocol Stop: 06/17/21 17:29 Ceftriaxone Sodium 1,000 mg/ (Dextrose) 60 mls @ 120 mls/hr IV DAILY@1600 [facility] Stop: 05/22/21 15:59 Last Infusion: 05/21/21 15:54 Dose: Infused Documented by: Ipratropium [place] (Ipratropium Hfa Inhaler (Combivent Respimat P&T Subs)) 2 puffs INH Q6R PRN PRN Reason: Shortness Of Breath Stop: 06/08/21 02:27 Lamotrigine (Lamotrigine 100 Mg Tab) 150 mg PO QAM [facility] Stop: 06/08/21 08:59 Last Admin: 05/21/21 08:07 Dose: 150 mg Documented by: Loperamide HCl (Loperamide Hcl 2 Mg Cap) 2 mg PO HS [facility] Stop: 06/08/21 20:59 Last Admin: 05/21/21 22:11 Dose: 2 mg Documented by: Metoprolol Tartrate (Metoprolol Tartrate 1 Mg/Ml Vial) 5 mg IV Q5M PRN PRN Reason: HR greater than 120 Stop: 06/15/21 23:14 Last Admin: 05/21/21 08:45 Dose: 5 mg Documented by: Metoprolol Tartrate (Metoprolol Tartrate 25 Mg Tab) 25 mg PO BID [facility] Stop: 06/21/21 20:59 Mirtazapine (Mirtazapine Tab 15 Mg Tab) 15 mg PO HS [facility] Stop: 06/12/21 20:59 Last Admin: 05/21/21 22:11 Dose: 15 mg Documented by: Nitroglycerin (Nitroglycerin Sl 0.4 Mg/Tab Tab) 0.4 mg SL UD PRN PRN Reason: Angina Stop: 06/08/21 00:56 Ondansetron HCl (Ondansetron 4 Mg Od Tab) 4 mg PO Q8H PRN PRN Reason: nausea and vomiting Stop: 06/08/21 00:56 Last Admin: 05/19/21 11:30 Dose: 4 mg Documented by: Ondansetron HCl (Ondansetron Inj 2 Mg/Ml 2 Ml Vial) 4 mg IV Q6H PRN PRN Reason: Nausea And Vomiting Stop: 06/17/21 08:23 Last Admin: 05/19/21 01:25 Dose: 4 mg Documented by: Pantoprazole Sodium (Pantoprazole 40 Mg Tab) 40 mg PO [facility] Stop: 06/18/21 17:44 Last Admin: 05/22/21 09:12 Dose: 40 mg Documented by: Potassium Chloride (Potassium Chloride Crtab 20 Meq Tabcr) 20 meq PO [facility] Stop: 06/13/21 08:59 Last Admin: 05/22/21 09:18 Dose: 20 meq Documented by: Pregabalin (Pregabalin 75 Mg Cap) 75 mg PO [facility] Stop: 06/08/21 20:59 Last Admin: 05/21/21 22:11 Dose: 75 mg Documented by: Quetiapine Fumarate (Quetiapine Fumarate 150 Mg Tabcr) 150 mg PO [facility] Stop: 06/08/21 20:59 Last Admin: 05/21/21 22:12 Dose: 150 mg Documented by: Roflumilast (Roflumilast 500 Mcg Tab) 500 mcg PO [facility] Stop: 06/08/21 08:59 Last Admin: 05/22/21 09:12 Dose: 500 mcg Documented by: Rosuvastatin Calcium (Rosuvastatin Calcium 10 Mg Tab) 10 mg PO [facility] Stop: 06/08/21 20:59 Last Admin: 05/21/21 22:12 Dose: 10 mg Documented by: Venlafaxine HCl (Venlafaxine Hcl 37.5 Mg Tab) 37.5 mg PO BID [facility] Stop: 06/09/21 20:59 Last Admin: 05/21/21 22:12 Dose: 37.5 mg Documented by: PG Care Time/CCT Total # of Minutes Spent Total Time Spent with Patient: Total time spent is greater than 50% in coordination of care (as documented) at patient's floor/unit and/or counseling patient: Coding Level of Care Code 29342 Subseq Hosp Care Lvl 3 Diagnoses Atrial fibrillation I48.91 Anorexia R63.0 Acute kidney injury N17.9 Hypokalemia E87.6 Diarrhea R19.7 Diarrhea type: unspecified type Generalized weakness R53.1 GERD (gastroesophageal reflux disease) K21.9 Hypothyroid E03.9 Hypothyroidism type: unspecified Anxiety F41.9 Bipolar 1 disorder F31.9 Depression F32.9 COPD (chronic obstructive pulmonary disease) J44.9 COPD type: unspecified COPD Hyperlipidemia E78.5 Hyperlipidemia type: unspecified Hypertension I10 Hypertension type: essential hypertension COVID-19 virus infection U07.1 (1) Diarrhea Diarrhea type: unspecified type Qualified Code(s): R19.7 - Diarrhea, unspecified (2) Hypothyroid Hypothyroidism type: unspecified Qualified Code(s): E03.9 - Hypothyroidism, unspecified (3) COPD (chronic obstructive pulmonary disease) COPD type: unspecified COPD Qualified Code(s): J44.9 - Chronic obstructive pulmonary disease, unspecified (4) Hyperlipidemia Hyperlipidemia type: unspecified Qualified Code(s): E78.5 - Hyperlipidemia, unspecified (5) Hypertension Hypertension type: essential hypertension Qualified Code(s): I10 - Essential (primary) hypertension
[2021-05-22 09:52] LABS: Hematocrit (blood only) 31.4 % (37-47); Hemoglobin 9.8 g/dL (12.0-16.0); Mean Corpuscular Hemoglobin 30.9 pg (25-34); Mean Corpuscular Hgb Conc 31.2 g/dL (32-36); Mean Corpuscular Volume 99.1 fL (80-100); Mean Platelet Volume 9.5 fL (7.4-10.4); Platelet Count 240 K/uL (130-400); RDW Coefficient of Variation 15.5 % (11.5-14.5); RDW Standard Deviation 56.3 fL (36.4-46.3); Red Blood Count 3.17 M/uL (4.2-5.4); White Blood Count 6.63 K/uL (4.8-10.8)
[2021-05-22 10:23] LABS: Potassium 3.7 mmol/L (3.5-5.1)
[2021-05-22 10:25] LABS: Albumin Globulin Ratio 0.4 (0.9-2); BUN Creatinine Ratio 14.7 (10-20); Bilirubin,Total 0.3 mg/dl (0.2-1); Creatinine Clr Calc Pharmacy 36.3 ml/min; Est GFR (African American) 58.5 ml/min; Est GFR (Non-African American) 50.5 ml/min; Globulin 4.5 gm/dl (2.5-4.0); Phosphorus 3.2 mg/dl (2.5-4.9); Total Protein 6.5 gm/dl (6.4-8.2)
[2021-05-22 10:28] LABS: Magnesium 1.9 mg/dl (1.8-2.4)
[2021-05-22] MEDS ORDERED: SODIUM CHLORIDE 0.9% 500 ML IV SCH (11:45)
--- NOTE | 2021-05-22 12:52 | Psychiatric Progress Note ---
Date of Service May 22, 2021 Impression / Recommendations Impression Patient is a 81-year-old female, admit UTI, hx of non-specific bipolar dx with previous depression, no manic symptoms per family over course, longstanding combo of mood stabilizers. Compared to initial consultation note by Dr. Avendaño, thought processes more clear but could still be having periods of hypoactive delirium, mainly I am concerned there may be side effects of psychiatric medications contributing to her presentation, particularly the fatigue and perceived intermittent difficulty swallowing at times and tremor. * As Remeron possibly more beneficial for appetite, will prefer it over Effexor XR for depression at this time and finalize the Effexor taper. Discontinue Effexor XR. * prefer shorter acting Seroquel in older patients and will decrease Seroquel XR dose to regular release Seroquel 50 mg hs for now with hope to taper further. * lamictal has rarely been reported to worsen autoimmune syndromes/myositis, scleroderma, etc. Will decrease to 100 mg Lamictal for now rather than stopping as would require retitration if developed any hypomanic symptoms on lower Seroquel. Inventory Assets Strengths: Resilience Needs: Stability Risk Factors Assessment Male: No : Yes Do You Have Access To A Gun?: No Protective Factors Assessment Rastafari Beliefs: Yes Good Rapport with Provider: Yes Interval History Chief Complaint "I don't know why this eating thing is so bad, it's not like I just broke up with a boyfriend". Review of Systems Notes as above and as per hospitalist Subjective Subjective Patient was seen & assessed and interval progress reviewed with liason, interim history reviewed, directed additional contact with family around bipolar dx, review of historical visits and surescripts hx. Total time spent >57 min and did also include exam of patient and brief discussion with Dr. Gould. Daughter confirmed bipolar dx came 15 years ago, followed by Dr. Clark only. Chart shows ?2000 admit for depression/anxiety to [facility]. Patient has been treated with Effexor XR and Lamictal for ?10 years or more per various encounter notes, Seroquel for several years in various forms. Dr. Clark's office remains closed today for holiday. Patient previously on 150 mg of Effexor XR so it appears that 37.5 mg reflected taper rather than start. Since initial cons zoltan saw patient and increased Effexor XR, Remeron added by hospitalist service in hopes of increasing appetite. Patient has reported tremors interfere with feeding herself. Not particularly present at rest on exam today but also states that believes her psych meds to affect swallow at times and certain consistencies are triggering, like thicker custard, worried that it would get stuck. Weakness worse since hip surgery 03/08 but long hx of intermittent myalgias and did have testing/EMG through neuro. On Seroquel and Lamictal at that time as well. My understanding is that patient has been very fatigued much of her hospital course and this also interferes with feeding to the point there was discussion of an NG which may ultimately result in need for PEG placement as looking at SNF, etc. Physical Exam Psychiatric Orientation: cooperative tired appearing Eye Contact: + fair eye contact Motor Behavior: no abnormal motor movements Speech: normal rate/rhythm/volume of speech Affect: + blunted affect she was spontaneous in conversation, reacted to a joke Thought Process: + concrete thought process Thought Content: + preoccupation (somatic) and reality based without delusions Suicidal Thoughts: denies suicidal thoughts Homicidal Thoughts: denies homicidal thoughts Hallucinations: no auditory hallucinations and no visual hallucinations Cognition: language grossly intact; + attention not intact Vital Signs (Past 24 Hours) Last Vital Signs Temp 36.2 C L 05/22/21 11:20 Pulse 90 05/22/21 11:20 Resp 16 05/22/21 11:20 BP 109/67 05/22/21 11:20 Pulse Ox 96 05/22/21 11:20 Results & Data ([facility]) Laboratory Results Laboratory Results - last 24 hr 05/22/21 05/22/21 05/22/21 09:38 09:38 09:44 WBC 6.63 RBC 3.17 L Hgb 9.8 L Hct 31.4 L MCV 99.1 MCH 30.9 MCHC 31.2 L RDW Std Deviation 56.3 H RDW Coeff of Gino 15.5 H Plt Count 240 MPV 9.5 Sodium 140 Potassium 3.7 Chloride 104 Carbon Dioxide 31 Anion Gap 5.0 BUN 15 Creatinine 1.05 Est Cr Clr Drug Dosing 36.3 Est GFR ( Amer) 58.5 Est GFR (Non-Af Amer) 50.5 BUN/Creatinine Ratio 14.7 Glucose 120 H Calcium 9.0 Phosphorus 3.2 Magnesium 1.9 Total Bilirubin 0.3 AST 14 L ALT 9 L Alkaline Phosphatase 82 Total Protein 6.5 Albumin 2.0 L Globulin 4.5 H Albumin/Globulin Ratio 0.4 L Current Inpatient Medications Current Inpatient Medications: Current Inpatient Medications Acetaminophen (Acetaminophen 325 Mg Tab) 650 mg PO Q4H PRN PRN Reason: Pain or Fever Stop: 06/08/21 00:56 Albuterol (Albuterol Hfa 8 Gm Inhaler (Combivent Respimat P&T Subs)) 2 puffs INH Q6H PRN PRN Reason: Shortness Of Breath Stop: 06/08/21 02:27 Apixaban (Apixaban 5 Mg Tablet) 5 mg PO BID [facility] Stop: 06/08/21 00:56 Last Admin: 05/22/21 09:12 Dose: 5 mg Documented by: Aspirin (Aspirin 81 Mg Ectab) 81 mg PO DAILY [facility] Stop: 06/08/21 08:59 Last Admin: 05/22/21 09:13 Dose: 81 mg Documented by: Cyanocobalamin (Cyanocobalamin (Vitamin B-12) 2,500 Mcg Tab.Subl) 5,000 mcg SL DAILY [facility] Stop: 06/08/21 08:59 Last Admin: 05/22/21 09:13 Dose: 5,000 mcg Documented by: Dronabinol (Dronabinol 2.5 Mg Cap) 5 mg PO BID [facility] Stop: 06/21/21 20:59 Enteral Nutritional Formula (Peptamen 1.5 Tian 1,000 Ml Bag) 1,000 ml NG UD [facility]; Protocol Stop: 06/17/21 17:29 Ceftriaxone Sodium 1,000 mg/ (Dextrose) 60 mls @ 120 mls/hr IV DAILY@1600 [facility] Stop: 05/22/21 15:59 Last Infusion: 05/21/21 15:54 Dose: Infused Documented by: Sodium Chloride (Nss) 500 mls @ 125 mls/hr IV .Q4H [facility] Stop: 05/22/21 15:44 Last Admin: 05/22/21 11:44 Dose: 125 mls/hr Documented by: Ipratropium [place] (Ipratropium Hfa Inhaler (Combivent Respimat P&T Subs)) 2 puffs INH Q6R PRN PRN Reason: Shortness Of Breath Stop: 06/08/21 02:27 Lamotrigine (Lamotrigine 100 Mg Tab) [facility]: 06/22/21 08:59 Loperamide HCl (Loperamide Hcl 2 Mg Cap) 2 mg PO [facility] Stop: 06/08/21 20:59 Last Admin: 05/21/21 22:11 Dose: 2 mg Documented by: Metoprolol Tartrate (Metoprolol Tartrate 1 Mg/Ml Vial) 5 mg IV Q5M PRN PRN Reason: HR greater than 120 Stop: 06/15/21 23:14 Last Admin: 05/22/21 09:27 Dose: 5 mg Documented by: Metoprolol Tartrate (Metoprolol Tartrate 25 Mg Tab) 25 mg PO BID [facility] Stop: 06/21/21 20:59 Mirtazapine (Mirtazapine Tab 15 Mg Tab) 15 mg PO [facility] Stop: 06/12/21 20:59 Last Admin: 05/21/21 22:11 Dose: 15 mg Documented by: Nitroglycerin (Nitroglycerin Sl 0.4 Mg/Tab Tab) 0.4 mg SL UD PRN PRN Reason: Angina Stop: 06/08/21 00:56 Ondansetron HCl (Ondansetron 4 Mg Od Tab) 4 mg PO Q8H PRN PRN Reason: nausea and vomiting Stop: 06/08/21 00:56 Last Admin: 05/19/21 11:30 Dose: 4 mg Documented by: Ondansetron HCl (Ondansetron Inj 2 Mg/Ml 2 Ml Vial) 4 mg IV Q6H PRN PRN Reason: Nausea And Vomiting Stop: 06/17/21 08:23 Last Admin: 05/19/21 01:25 Dose: 4 mg Documented by: Pantoprazole Sodium (Pantoprazole 40 Mg Tab) 40 mg PO [facility] Stop: 06/18/21 17:44 Last Admin: 05/22/21 09:12 Dose: 40 mg Documented by: Potassium Chloride (Potassium Chloride Crtab 20 Meq Tabcr) 20 meq [facility] Stop: 06/13/21 08:59 Last Admin: 05/22/21 09:18 Dose: 20 meq Documented by: Pregabalin (Pregabalin 75 Mg Cap) 75 mg PO [facility] Stop: 06/08/21 20:59 Last Admin: 05/21/21 22:11 Dose: 75 mg Documented by: Quetiapine Fumarate (Quetiapine Fumarate 25 Mg Tablet) 50 mg PO [facility] Stop: 06/21/21 20:59 Roflumilast (Roflumilast 500 Mcg Tab) 500 mcg PO [facility] Stop: 06/08/21 08:59 Last Admin: 05/22/21 09:12 Dose: 500 mcg Documented by: Rosuvastatin Calcium (Rosuvastatin Calcium 10 Mg Tab) 10 mg PO [facility] Stop: 06/08/21 20:59 Last Admin: 05/21/21 22:12 Dose: 10 mg Documented by:
--- NOTE | 2021-05-22 15:16 | Palliative Care Consultation ---
Date of Consultation May 22, 2021 Assessment & Plan (1) Palliative care encounter: Mrs. Collier tells me about everything that she is eating and how much she is interested in doing therapy to get stronger. She is focused on trying to get better. I asked her if there were any limits to care that she could imagine and she said that she couldn't. We talked about contemplating an NG tube and how she felt about that and she said that she was fine with that though its not entirely clear that she understood what I was talking about. At this time, her family confirms that they want to focus on treatments to help her improve and hope that medication adjustment will improve her mental status and appetite. We did discuss the NG tube if that were not to happen and the fact that it would likely not help to improve her nutritional status and could present complications such as discomfort and aspiration. Her acknowledges this. Palliative care will follow peripherally. (2) Anorexia: On marinol and mirtazipine. Also on seroquel. Marinol recently increased to 5mg BID (3) Diarrhea: Diarrhea type: unspecified type Qualified Code(s): R19.7 - Diarrhea, unspecified (4) Atrial fibrillation: History of Present Illness Reason for Consultation: goals of care Requesting Physician: Dr. Rodrigues Attending Physician: Chago Gould DO History of Present Illness 81 yo lady admitted with weakness, confusion and dehydration. She has had poor po intake and had been on marinol and mirtazipine. She is being followed by nutrition and earlier in her admission family had considered NG supplemental feedings. She does have a history of bipolar disorder and has been on multiple medications. She has had some tremors and difficulty swallowing and is being evaluated by psychiatry for medication adjustment. Today she is awake and alert, visiting with her family, with a box of pizza on her tray table. She denies pain or nausea and reports that her appetite is better. Her family confirms that she has been eating better today. Allergies Allergy/AdvReac Type Severity Reaction Status Date / Time metoclopramide Allergy Intermediate ESSENTIAL Verified 05/08/21 19:53 TREMORS clopidogrel Allergy Mild HIVES Verified 05/08/21 19:53 diazepam Allergy Mild DEPRESSION Verified 05/08/21 19:53 diltiazem Allergy Mild Light Verified 05/08/21 19:53 headed erythromycin base Allergy Mild EES, TAKES Verified 05/08/21 19:53 Z-PACKS W/O RXN gabapentin Allergy Mild States Verified 05/08/21 19:53 hands catch fire latex Allergy Mild rips skin Verified 05/08/21 19:53 off lisinopril Allergy Mild COUGH Verified 05/08/21 19:53 losartan Allergy Mild HIVES Verified 05/08/21 19:53 micafungin Allergy Mild rash Verified 05/08/21 19:53 oxycodone Allergy Mild INC. Verified 05/08/21 19:53 DEPRESSION Penicillins Allergy Mild Diarrhea Verified 05/08/21 19:53 promethazine Allergy Mild TROUBLE Verified 05/08/21 19:53 FOCUSING SPEAKING AT HIGHER DOSES Sulfa (Sulfonamide Allergy Mild SKIN Verified 05/08/21 19:53 Antibiotics) BECOMES PHOTOSENSITIVE AND BECOMES RED bupropion Allergy Unknown unknown Verified 05/08/21 19:53 dicyclomine Allergy Unknown Unknown Verified 05/08/21 19:53 potassium chloride Allergy Unknown Unknown Verified 05/08/21 19:53 sucralfate Allergy Unknown Unknown Verified 05/08/21 19:53 Hyaeyeg-Nvb-Jsh Reductase AdvReac Intermediate Diarrhea Verified 05/08/21 19:53 Inhibitor amoxicillin AdvReac Mild DIARRHEA Verified 05/08/21 19:53 clavulanic acid AdvReac Mild DIARRHEA Verified 05/08/21 19:53 hydrocodone AdvReac Mild "dont like Verified 05/08/21 19:53 how it makes me feel" Home Medications Medication Instructions Recorded Confirmed Type lamotrigine 150 mg PO QAM 01/01/19 05/08/21 History nitroglycerin [Nitrostat] 0.4 mg SUBLINGUAL UD PRN 01/01/19 05/08/21 History quetiapine 150 mg PO HS 01/01/19 05/08/21 History roflumilast 500 mcg PO QAM 01/01/19 05/08/21 History Oxygen Home #1 ea 07/21/20 04/10/21 History cholecalciferol (vitamin D3) 25 25 mcg PO DAILY 01/11/21 05/08/21 History mcg (1,000 unit) capsule cyanocobalamin (vitamin B-12) 5,000 mcg PO DAILY 01/11/21 05/08/21 History 5,000 mcg capsule ipratropium 20 mcg-albuterol 100 2 puff INHALATION Q6H PRN g 01/11/21 05/08/21 History mcg/actuation mist for inhalation rosuvastatin 10 mg tablet 10 mg PO HS 01/11/21 05/08/21 History ferrous gluconate 324 mg PO BIDM #60 tab 03/11/21 05/08/21 Rx ondansetron HCl [Zofran] 4 mg PO Q8H PRN #6 tab 03/11/21 05/08/21 Rx pregabalin 75 mg PO HS #30 cap 03/11/21 05/08/21 Rx Eliquis 5 mg PO BID #30 tab 04/04/21 05/08/21 Rx aspirin 81 mg PO DAILY 30 Days #30 tab 04/25/21 05/08/21 Rx digoxin [Digitek] 125 mcg PO DAILY@1600 30 Days #30 04/25/21 05/08/21 Rx tab loperamide 2 mg PO HS 30 Days #30 cap 04/25/21 05/08/21 Rx metoprolol tartrate 25 mg PO BID 30 Days #60 tab 04/25/21 05/08/21 Rx omeprazole 20 mg PO HS 05/08/21 05/08/21 History potassium chloride 20 meq PO QAM 05/08/21 05/08/21 History venlafaxine 37.5 mg PO QAM 05/08/21 05/08/21 History Patient History Medical History Anemia REASON FOR COLONOSCOPY 07/2019 Atrial fibrillation Atrial fibrillation with rapid ventricular response Bipolar 1 disorder Breast cancer (08/23/14) "Abnormal bilateral mammogram Status post core needle biopsy 08/23/2014 revealing intraductal papilloma on the left Right breast showed invasive ductal carcinoma Status post right lumpectomy and sentinel lymph node biopsy 10/08/2014 Stage [id number] Status post completion of radiation therapy 12/24/2014 utilizing hypo- fractionation received 5000 cGy" Breast cancer, right 2014--stage 1--lumpectomy and radiation Change in vision Chronic obstructive pulmonary disease inhaler daily Degenerative joint disease Depression Elevated troponin I level Fall GERD (gastroesophageal reflux disease) History of colon polyps Hyperlipidemia Hypertension Hypokalemia Hypothyroidism Medical marijuana use Myocardial Infarction "silent" in --follows with Dr. Zoda On home oxygen therapy 2L N/C at hs Pancreatitis hx of Papilloma of breast left Sleep apnea Temporal arteritis Unstable angina Unstable angina Surgical History History of bilateral cataract extraction History of bilateral tubal ligation History of breast surgery removal of papilloma of left breast History of cardiac cath x3--last ---no stents History of cholecystectomy History of colonoscopy History of esophagogastroduodenoscopy (EGD) History of lumpectomy of right breast History of right breast biopsy malignant History of tooth extraction all teeth removed History of total hysterectomy with bilateral salpingo-oophorectomy (BSO) Family History Grandfather (Paternal) Family history of diabetes mellitus Other No family history of adverse response to anesthesia Social History Smoking Status: Former smoker Cigarettes Per Day: 20 a day; Second Hand Exposure: No; Hx Alcohol Use: No Hx Substance Use: No Preferred Language: Mosotho Communication Ability: Impaired Credit Adjuster Required: No Beliefs That Will Affect Care: None Current Living Situation: Spouse Feels Safe at Home: Yes Assistive Devices: Denture - Upper, Denture - Lower and Oxygen - Continuous Review of Systems Review of Systems: [place] Symptom Assessment Scale Pain 0/3 Anxiety 1/3 Dyspnea 0/3 Fatigue 2/3 Drowsiness 0/3 Nausea 0/3 Palliative Performance Score 30% Physical Exam Constitutional: no acute distress ENMT: Mouth: oral mucous membranes not dry mild lip smacking Respiratory: normal respiratory effort; no labored breathing Musculoskeletal: Extremities: extremities normal to inspection Neurologic: awake and + confused (mild) Motor/Sensory: + tremor Results & Data ([facility]) Vital Signs (Past 12 Hours) Vital Signs Temp Pulse Pulse Resp BP BP Pulse Ox 05/22/21 15:00 116 H 05/22/21 14:51 97.7 F 109 H 20 111/76 96 05/22/21 11:20 97.2 F L 90 16 109/67 96 05/22/21 09:27 145 H 113/65 05/22/21 07:26 97.9 F 92 H 18 127/76 96 05/22/21 06:59 97 H 05/22/21 03:15 97.9 F 85 20 120/76 94 PG Care Time/CCT Total # of Minutes Spent Total Time Spent with Patient: Total time spent is greater than 50% in coordination of care (as documented) at patient's floor/unit and/or counseling patient: total time spent 55 minutes with more than 50% of time spent on goals of care, patient and family education Coding Level of Care Code 17142 Initial Inpt Care Lvl 2 Diagnoses Palliative care encounter Z51.5 Anorexia R63.0 Diarrhea R19.7 Diarrhea type: unspecified type Atrial fibrillation I48.91
[2021-05-22] MEDS: METOPROLOL TARTRATE 25 MG TAB PO SCH ×2 (18:19→20:57)
[2021-05-22] MEDS: PREGABALIN 75 MG CAP PO SCH (20:54)
[2021-05-22] MEDS: ROSUVASTATIN CALCIUM 10 MG TAB PO SCH (20:55)
[2021-05-22] MEDS: MIRTAZAPINE TAB 15 MG TAB PO SCH (20:55)
[2021-05-22] MEDS: LOPERAMIDE HCL 2 MG CAP PO SCH (20:59)
[2021-05-22] MEDS ORDERED: QUEtiapine FUMARATE 25 MG TABLET PO SCH (21:00)
--- NOTE | 2021-05-22 22:19 | Gastroenterology Progress Note ---
Date of Service May 22, 2021 Assessment & Plan (1) Abnormal weight loss: (2) Feeding difficulties: (3) Palliative care encounter: (4) Anorexia: H. pylori stool Ag and Celiac panel still pending Palliative care saw patient earlier today Continue Pantoprazole 40 mg by mouth QAM 1/2 hour prior to breakfast Continue Zofran PRN nausea and vomiting Continue supportive care Admission and Anticipated Discharge Date Admission Date: May 08, 2021 Subjective Still with minimal PO intake. She states that she has not had a BM today. She denies any nausea, but still states her appetite is poor. She denies fevers, chills, vomiting, or diarrhea. She denies any further complaints. Physical Exam Constitutional: Chronic ill-appearing, but No acute distress Respiratory: normal respiratory effort Cardiovascular: Rate/Rhythm: + tachycardic and + irregularly irregular Gastrointestinal (Abdomen): Inspection/Auscultation: abdomen normal to inspection Percussion/Palpation: abdomen soft Nontender and nondistended Psychiatric: Orientation: alert, oriented to person and oriented to place Speech: normal rate/rhythm/volume of speech Results & Data Results & Data ([facility]) Vital Signs (Past 12 Hours) Vital Signs Temp Pulse Pulse Resp BP Pulse Ox 05/22/21 19:00 36.8 C 69 16 137/78 99 05/22/21 15:00 116 H 05/22/21 14:51 36.5 C 109 H 20 111/76 96 05/22/21 11:20 36.2 C L 90 16 109/67 96 PG Care Time/CCT Total # of Minutes Spent Total Time Spent with Patient: Total time spent is greater than 50% in coordination of care (as documented) at patient's floor/unit and/or counseling patient: Coding Level of Care Code 02414 Subseq Hosp Care Lvl 2 Diagnoses Abnormal weight loss R63.4 Feeding difficulties R63.3 Palliative care encounter Z51.5 Anorexia R63.0
--- NOTE | 2021-05-23 08:33 | Gastroenterology Progress Note ---
Date of Service May 23, 2021 Assessment & Plan (1) Abnormal weight loss: (2) Feeding difficulties: H. pylori stool Ag and Celiac panel still pending Palliative care saw patient yesterday Continue Pantoprazole 40 mg by mouth QAM 1/2 hour prior to breakfast Continue Zofran PRN nausea and vomiting Continue supportive care Dr. Dominguez is on for today. Please refer to supervising physician addendum for further recommendations. Admission and Anticipated Discharge Date Admission Date: May 08, 2021 Supervising Physician Co-Signing Physician Notes I have seen and examined the patient. I agree with note above by KIM Ordoñez except as noted below. HPI Pt awake and alert and is coherent at present. She feels her anorexia is in her head rather than pathologic process. She denies nausea and abd pain. She states nothing seems appetizing but when she does it the food will stay down. PE Abdomen pos bs, soft, no guarding nor rebound A/P anorexia---discussed eating small, frequent, high calorie meals vs PEG tube. Pt does not want a PEG tube. Encouraged po intake. Subjective The patient is lying in bed this morning and reports she is on the bedpan. Expresses frustration about continued hospitalization. This is my first encounter with the patient during this admission. Verbally confrontational. Wants to know why she was moved to another room, why she is still in the hospital, why no one is doing anything for her. When she was asked not to curse, she then called me a "dark haired witch". Nursing notes are reviewed. Patient has demonstrated increased confusion, paranoia, and aggression through the night per report. She denies abdominal pain, nausea, and vomiting. States bowels are moving. States she just wants to go home. Breakfast tray at bedside uneaten at time of evaluation. Review of Systems Review of Systems: difficult to assess due to patient lack of cooperation this morning Physical Exam Constitutional: Chronic ill-appearing, but No acute distress Respiratory: normal respiratory effort Gastrointestinal (Abdomen): Inspection/Auscultation: abdomen normal to inspection Percussion/Palpation: abdomen soft Nontender and nondistended Psychiatric: Orientation: alert and oriented to person Speech: normal rate/rhythm/volume of speech Results & Data ([facility]) Vital Signs (Past 12 Hours) Vital Signs Temp Pulse Pulse Resp BP Pulse Ox 05/23/21 07:25 36.7 C 99 H 16 158/81 H 94 05/23/21 03:21 36.5 C 102 H 18 155/76 H 05/23/21 02:00 121 H 05/22/21 22:22 36.8 C 100 H 18 140/75 99 Laboratory Results - last 24 hr 05/22/21 05/22/21 05/22/21 09:38 09:38 09:44 WBC 6.63 RBC 3.17 L Hgb 9.8 L Hct 31.4 L MCV 99.1 MCH 30.9 MCHC 31.2 L RDW Std Deviation 56.3 H RDW Coeff of Gino 15.5 H Plt Count 240 MPV 9.5 Sodium 140 Potassium 3.7 Chloride 104 Carbon Dioxide 31 Anion Gap 5.0 BUN 15 Creatinine 1.05 Est Cr Clr Drug Dosing 36.3 Est GFR ( Amer) 58.5 Est GFR (Non-Af Amer) 50.5 BUN/Creatinine Ratio 14.7 Glucose 120 H Calcium 9.0 Phosphorus 3.2 Magnesium 1.9 Total Bilirubin 0.3 AST 14 L ALT 9 L Alkaline Phosphatase 82 Total Protein 6.5 Albumin 2.0 L Globulin 4.5 H Albumin/Globulin Ratio 0.4 L
[2021-05-23] MEDS: PANTOprazole 40 MG TAB PO SCH (08:40)
[2021-05-23] MEDS: ROFLUMILAST 500 MCG TAB PO SCH (08:40)
[2021-05-23] MEDS: POTASSIUM CHLORIDE CRTAB 20 MEQ TABCR PO SCH (08:40)
[2021-05-23] MEDS: CYANOCOBALAMIN (VITAMIN B-12) 2,500 MCG TAB.SUBL SL SCH (08:40)
[2021-05-23] MEDS: ASPIRIN 81 MG ECTAB PO SCH (08:40)
[2021-05-23] MEDS: METOPROLOL TARTRATE 25 MG TAB PO SCH ×3 (08:40→22:15)
[2021-05-23] MEDS: APIXABAN 5 MG TABLET PO SCH ×2 (08:40→22:14)
--- NOTE | 2021-05-23 10:00 | Psychiatric Progress Note ---
Date of Service May 23, 2021 Impression / Recommendations Impression 05/23/21: Impression--agitation overnight either sundowning and/or resolution of hypoactive delirium plus attempts to minimize polypharmacy can contribute to breakthrough. Clearer this am. Dr. Gould updated. * Will retitrate Seroquel to 100 mg and chose earlier admin time so more time to administer if patient initially refuses. * Family would support trial of Zyprexa 2.5-5 mg po qhs for refusal as can be given zydis or IM. May be preferrable to optimize appetite over Seroquel in long run. * Family notes significant personality change following hip surgery. Head CT no acute issues but could consider MRI if persists/desire to delineate any microvascular changes (last MRI brain 2017). Would not change psych management at this point 05/22/21: Patient is a 81-year-old female, admit UTI, hx of non-specific bipolar dx with previous depression, no manic symptoms per family over course, longstanding combo of mood stabilizers. Compared to initial consultation note by Dr. Avendaño, thought processes more clear but could still be having periods of hypoactive delirium, mainly I am concerned there may be side effects of psychiatric medications contributing to her presentation, particularly the fatigue and perceived intermittent difficulty swallowing at times and tremor. * As Remeron possibly more beneficial for appetite, will prefer it over Effexor XR for depression at this time and finalize the Effexor taper. Discontinue Effexor XR. * prefer shorter acting Seroquel in older patients and will decrease Seroquel XR dose to regular release Seroquel 50 mg hs for now with hope to taper further. * lamictal has rarely been reported to worsen autoimmune syndromes/myositis, scleroderma, etc. Will decrease to 100 mg Lamictal for now rather than stopping as would require retitration if developed any hypomanic symptoms on lower Seroquel. Inventory Assets Strengths: Resilience Needs: Stability Risk Factors Assessment Male: No : Yes Do You Have Access To A Gun?: No Protective Factors Assessment [employer] Beliefs: Yes Good Rapport with Provider: Yes Interval History Chief Complaint "That couldn't be true". when questioned about making phone calls overnight. Review of Systems Notes patient denies all accept above. Subjective Subjective Patient was seen & assessed and interval progress reviewed. Patient had a period of confusion with agitation overnight, mainly around use of phone. has been more resistant to medications last 24 hrs but has happened for several days before. Less sedated this am. States that not interested in eating, refused assistance of liaison for feeding. Received Seroquel 50 mg po qhs last pm in place of 150 mg Seroquel XR due to perceived daytime sedation. confirmed has done similar around phone at home and they secure at night in case of awakenings. Physical Exam Psychiatric Orientation: alert, oriented to person and oriented to place Eye Contact: + fair eye contact Motor Behavior: no psychomotor agitation Speech: normal rate/rhythm/volume of speech Affect: + constricted affect "I'm fine other than being in the hospital" Thought Process: + concrete thought process Thought Content: not paranoid and no delusions Suicidal Thoughts: denies suicidal thoughts Homicidal Thoughts: denies homicidal thoughts Hallucinations: no auditory hallucinations and no visual hallucinations Cognition: language grossly intact Vital Signs (Past 24 Hours) Last Vital Signs Temp 36.7 C 05/23/21 07:25 Pulse 99 H 05/23/21 07:25 Resp 16 05/23/21 07:25 BP 158/81 H 05/23/21 07:25 Pulse Ox 94 05/23/21 07:25 Results & Data ([facility]) Laboratory Results Laboratory Results - last 24 hr 05/22/21 05/22/21 05/22/21 09:38 09:38 09:44 WBC 6.63 RBC 3.17 L Hgb 9.8 L Hct 31.4 L MCV 99.1 MCH 30.9 MCHC 31.2 L RDW Std Deviation 56.3 H RDW Coeff of Gino 15.5 H Plt Count 240 MPV 9.5 Sodium 140 Potassium 3.7 Chloride 104 Carbon Dioxide 31 Anion Gap 5.0 BUN 15 Creatinine 1.05 Est Cr Clr Drug Dosing 36.3 Est GFR ( Amer) 58.5 Est GFR (Non-Af Amer) 50.5 BUN/Creatinine Ratio 14.7 Glucose 120 H Calcium 9.0 Phosphorus 3.2 Magnesium 1.9 Total Bilirubin 0.3 AST 14 L ALT 9 L Alkaline Phosphatase 82 Total Protein 6.5 Albumin 2.0 L Globulin 4.5 H Albumin/Globulin Ratio 0.4 L Current Inpatient Medications Current Inpatient Medications: Current Inpatient Medications Acetaminophen (Acetaminophen 325 Mg Tab) 650 mg PO Q4H PRN PRN Reason: Pain or Fever Stop: 06/08/21 00:56 Albuterol (Albuterol Hfa 8 Gm Inhaler (Combivent Respimat P&T Subs)) 2 puffs INH Q6H PRN PRN Reason: Shortness Of Breath Stop: 06/08/21 02:27 Apixaban (Apixaban 5 Mg Tablet) 5 mg PO BID [facility] Stop: 06/08/21 00:56 Last Admin: 05/23/21 08:40 Dose: Not Given Documented by: Aspirin (Aspirin 81 Mg Ectab) 81 mg PO DAILY [facility] Stop: 06/08/21 08:59 Last Admin: 05/23/21 08:40 Dose: Not Given Documented by: Cyanocobalamin (Cyanocobalamin (Vitamin B-12) 2,500 Mcg Tab.Subl) 5,000 mcg SL DAILY [facility] Stop: 06/08/21 08:59 Last Admin: 05/23/21 08:40 Dose: Not Given Documented by: Dronabinol (Dronabinol 2.5 Mg Cap) 5 mg PO BID [facility] Stop: 06/21/21 20:59 Last Admin: 05/23/21 08:40 Dose: Not Given Documented by: Ipratropium [place] (Ipratropium Hfa Inhaler (Combivent Respimat P&T Subs)) 2 puffs INH Q6R PRN PRN Reason: Shortness Of Breath Stop: 06/08/21 02:27 Lamotrigine (Lamotrigine 100 Mg Tab) 100 mg PO QAM [facility] Stop: 06/22/21 08:59 Loperamide HCl (Loperamide Hcl 2 Mg Cap) 2 mg PO HS [facility] Stop: 06/08/21 20:59 Last Admin: 05/22/21 20:59 Dose: 2 mg Documented by: Metoprolol Tartrate (Metoprolol Tartrate 1 Mg/Ml Vial) 5 mg IV Q5M PRN PRN Reason: HR greater than 120 Stop: 06/15/21 23:14 Last Admin: 05/22/21 09:27 Dose: 5 mg Documented by: Metoprolol Tartrate (Metoprolol Tartrate 25 Mg Tab) 25 mg PO BID [facility] Stop: 06/21/21 20:59 Last Admin: 05/23/21 08:40 Dose: Not Given Documented by: Mirtazapine (Mirtazapine Tab 15 Mg Tab) 15 mg PO [facility] Stop: 06/12/21 20:59 Last Admin: 05/22/21 20:55 Dose: 15 mg Documented by: Nitroglycerin (Nitroglycerin Sl 0.4 Mg/Tab Tab) 0.4 mg SL UD PRN PRN Reason: Angina Stop: 06/08/21 00:56 Ondansetron HCl (Ondansetron 4 Mg Od Tab) 4 mg PO Q8H PRN PRN Reason: nausea and vomiting Stop: 06/08/21 00:56 Last Admin: 05/19/21 11:30 Dose: 4 mg Documented by: Ondansetron HCl (Ondansetron Inj 2 Mg/Ml 2 Ml Vial) 4 mg IV Q6H PRN PRN Reason: Nausea And Vomiting Stop: 06/17/21 08:23 Last Admin: 05/19/21 01:25 Dose: 4 mg Documented by: Pantoprazole Sodium (Pantoprazole 40 Mg Tab) 40 mg PO [facility] Stop: 06/18/21 17:44 Last Admin: 05/23/21 08:40 Dose: Not Given Documented by: Potassium Chloride (Potassium Chloride Crtab 20 Meq Tabcr) 20 meq PO [facility] Stop: 06/13/21 08:59 Last Admin: 05/23/21 08:40 Dose: Not Given Documented by: Pregabalin (Pregabalin 75 Mg Cap) 75 mg PO [facility] Stop: 06/08/21 20:59 Last Admin: 05/22/21 20:54 Dose: 75 mg Documented by: Quetiapine Fumarate (Quetiapine Fumarate 100 Mg Tablet) 100 mg PO [facility] Stop: 06/22/21 19:59 Roflumilast (Roflumilast 500 Mcg Tab) 500 mcg PO [facility] Stop: 06/08/21 08:59 Last Admin: 05/23/21 08:40 Dose: Not Given Documented by: Rosuvastatin Calcium (Rosuvastatin Calcium 10 Mg Tab) 10 mg PO [facility] Stop: 06/08/21 20:59 Last Admin: 05/22/21 20:55 Dose: 10 mg Documented by:
--- NOTE | 2021-05-23 11:30 | Hospitalist Progress Note ---
Date of Service May 23, 2021 Assessment & Plan (1) Atrial fibrillation: on eliquis for anticoagulation bradycardia on 05/12, could be tachybrady syndrome, HR in 40's, no symptoms EKG showed afib with slow AV conduction digoxin is 1.8, held digoxin on 05/12, HR up to 70-80s reduced metoprolol to 12.5mg BID will now stop Digoxin as it might be contributing to anorexia and depression? monitor rates on tele, can go up on metoprolol if HR goes up RVR the morning of 05/22 and 05/23, rates in 130s while sitting in bed, no chest pain/pressure patient is not compliant with Lopressor encouraged her to take as prescribed, HR better with 25mg BID and one dose of Lopressor 5mg (2) Anorexia: main issue, not eating at all for about three weeks no response to Effexor will increase Marinol to 5mg BID today continue Remeron to 15mg HS maybe Digoxin is causing anorexia and depression? stopped this one week ago most likely source is bipolar with depression appreciate psychiatry consult, reduced Seroquel trying to limit medications will take some time patient would like to avoid feeding tube if possible (3) Acute kidney injury: Creatinine 1.46 upon admission Cr improved to baseline after IV fluids hypernatremia resolved BMP on 05/22 with normal Cr and electrolytes (4) Hypokalemia: K normal on 05/22 (5) Diarrhea: Work-up at last admission was C. difficile negative, stool culture negative, and improved with Cipro and Flagyl treatment for nonspecific proctocolitis noted on CT of abdomen pelvis on 04/16 Nurses report that she had 3 bowel movements in the emergency department, but they were of normal caliber Her symptoms had improved with Imodium and Questran during last admission. Continue loperamide 2 mg p.o. at bedtime. Resume Questran, which is presently not on her medication list and unclear if it was discontinued or dropped off small mucous like stool today, sent for C diff - NEGATIVE but overall less stools celiac testing ordered per GI (6) Generalized weakness: history of profound weakness with infection and stress was supposed to follow up with [facility] movement disorder will need a single fiber EMG has been tested for myasthenia gravis and Lambert Eaton in the past, negative order PT/OT not eating enough to give her energy, try to stimulate appetite with Remeron and Marinol (7) GERD (gastroesophageal reflux disease): Continue omeprazole 20 mg daily for now (8) Hypothyroid: Is a diagnosis of hypothyroidism, is not on any thyroid hormone replacement (9) Anxiety: Bipolar 1 disorder/Anxiety with depression- Was noted in the past to be contributing to overall symptomatology Continue lamotrigine 100mg qAM, pregabalin 75mg, quetiapine 100mg HS, Remeron 15mg HS stopped Effexor per psychiatry appreciate their recommendations, they will manage meds (10) Bipolar 1 disorder: See above (11) Depression: See above severe, not eating well, lacks motivation continue Remeron (12) COPD (chronic obstructive pulmonary disease): Continue as needed duo nebs (13) Hyperlipidemia: Continue rosuvastatin (14) Hypertension: See above (15) COVID-19 virus infection: Patient did have full vaccine in January 2021 Was noted to be positive on 04/10 and 04/25/2021, but was not felt to be need to be treated due to no symptomatology. She again has no symptoms. remove isolation precautions Admission and Anticipated Discharge Date Admission Date: May 08, 2021 Subjective afib with RVR today, patient not compliant with metoprolol this morning I encouraged her to take her medications, gave Lopressor 25mg PO and Lopressor 5mg IV patient was agitated last night, calmer now appreciate note from Dr. Duenas, will add back Seroquel 100mg, could try Zyprexa patient is tearful, she is anxious, she says she is scared here on the 2nd floor I encouraged her to take her metoprolol, if she takes it and HR stable for 48 hours then I can remove her from monitor she is still not eating, she acknowledges that if she does not eat she will get feeding tube, admits she would want to avoid that Review of Systems Review of Systems: All systems reviewed & are unremarkable except as noted in Subjective Physical Exam Constitutional: well developed, + thin and + frail appearing; no acute distress Neck: trachea midline, no thyromegaly Respiratory: normal respiratory effort, lungs clear to auscultation Cardiovascular: Rate/Rhythm: + tachycardic and + irregularly irregular Heart Sounds: normal S1 and normal S2; no murmur Gastrointestinal (Abdomen): normal bowel sounds, soft, nontender, no hepatosplenomegaly Musculoskeletal: Head/Neck/Chest: normocephalic, head atraumatic and neck supple Extremities: extremities normal to inspection and + abnormal strength (generalized weakness, cannot stand up); no cyanosis, no clubbing and no petechiae Skin: no rashes, warm and dry Neurologic: patellar DTR's 2+ bilat, sensation intact and PERRL, EOMI, accommodation nl, no face palsy, no dysarthria Psychiatric: Orientation: alert and oriented x 3 Affect: + anxious affect and + tearful affect Mood: + depressed mood Lymphatic: no cervical or axillary lymphadenopathy Results & Data Results & Data ([facility]) Vital Signs (Past 12 Hours) Vital Signs Temp Pulse Pulse Resp BP Pulse Ox 05/23/21 07:25 36.7 C 99 H 16 158/81 H 94 05/23/21 03:21 36.5 C 102 H 18 155/76 H 05/23/21 02:00 121 H Medications Administered Current Inpatient Medications Acetaminophen (Acetaminophen 325 Mg Tab) 650 mg PO Q4H PRN PRN Reason: Pain or Fever Stop: 06/08/21 00:56 Albuterol (Albuterol Hfa 8 Gm Inhaler (Combivent Respimat P&T Subs)) 2 puffs INH Q6H PRN PRN Reason: Shortness Of Breath Stop: 06/08/21 02:27 Apixaban (Apixaban 5 Mg Tablet) 5 mg PO BID [facility] Stop: 06/08/21 00:56 Last Admin: 05/23/21 08:40 Dose: Not Given Documented by: Aspirin (Aspirin 81 Mg Ectab) 81 mg PO DAILY JANINE Stop: 06/08/21 08:59 Last Admin: 05/23/21 08:40 Dose: Not Given Documented by: Cyanocobalamin (Cyanocobalamin (Vitamin B-12) 2,500 Mcg Tab.Subl) 5,000 mcg SL DAILY JANINE Stop: 06/08/21 08:59 Last Admin: 05/23/21 08:40 Dose: Not Given Documented by: Dronabinol (Dronabinol 2.5 Mg Cap) 5 mg PO BID [facility] Stop: 06/21/21 20:59 Last Admin: 05/23/21 08:40 Dose: Not Given Documented by: Ipratropium [place] (Ipratropium Hfa Inhaler (Combivent Respimat P&T Subs)) 2 puffs INH Q6R PRN PRN Reason: Shortness Of Breath Stop: 06/08/21 02:27 [facility]otrigine ([facility] 100 Mg Tab) [facility] Stop: 06/22/21 08:59 Loperamide HCl (Loperamide Hcl 2 Mg Cap) 2 mg PO [facility] Stop: 06/08/21 20:59 Last Admin: 05/22/21 20:59 Dose: 2 mg Documented by: Metoprolol Tartrate (Metoprolol Tartrate 1 Mg/Ml Vial) 5 mg IV Q5M PRN PRN Reason: HR greater than 120 Stop: 06/15/21 23:14 Last Admin: 05/22/21 09:27 Dose: 5 mg Documented by: Metoprolol Tartrate (Metoprolol Tartrate 25 Mg Tab) 25 mg PO BID [facility] Stop: 06/21/21 20:59 Last Admin: 05/23/21 08:40 Dose: Not Given Documented by: Mirtazapine (Mirtazapine Tab 15 Mg Tab) 15 mg PO [facility] Stop: 06/12/21 20:59 Last Admin: 05/22/21 20:55 Dose: 15 mg Documented by: Nitroglycerin (Nitroglycerin Sl 0.4 Mg/Tab Tab) 0.4 mg SL UD PRN PRN Reason: Angina Stop: 06/08/21 00:56 Ondansetron HCl (Ondansetron 4 Mg Od Tab) 4 mg PO Q8H PRN PRN Reason: nausea and vomiting Stop: 06/08/21 00:56 Last Admin: 05/19/21 11:30 Dose: 4 mg Documented by: Ondansetron HCl (Ondansetron Inj 2 Mg/Ml 2 Ml Vial) 4 mg IV Q6H PRN PRN Reason: Nausea And Vomiting Stop: 06/17/21 08:23 Last Admin: 05/19/21 01:25 Dose: 4 mg Documented by: Pantoprazole Sodium (Pantoprazole 40 Mg Tab) 40 mg PO [facility] Stop: 06/18/21 17:44 Last Admin: 05/23/21 08:40 Dose: Not Given Documented by: Potassium Chloride (Potassium Chloride Crtab 20 Meq Tabcr) 20 meq PO [facility] Stop: 06/13/21 08:59 Last Admin: 05/23/21 08:40 Dose: Not Given Documented by: Pregabalin (Pregabalin 75 Mg Cap) 75 mg PO [facility] Stop: 06/08/21 20:59 Last Admin: 05/22/21 20:54 Dose: 75 mg Documented by: Quetiapine Fumarate (Quetiapine Fumarate 100 Mg Tablet) 100 mg PO [facility] Stop: 06/22/21 19:59 Roflumilast (Roflumilast 500 Mcg Tab) 500 mcg PO [facility] Stop: 06/08/21 08:59 Last Admin: 05/23/21 08:40 Dose: Not Given Documented by: Rosuvastatin Calcium (Rosuvastatin Calcium 10 Mg Tab) 10 mg PO [facility] Stop: 06/08/21 20:59 Last Admin: 05/22/21 20:55 Dose: 10 mg Documented by: PG Care Time/CCT Total # of Minutes Spent Total Time Spent with Patient: Total time spent is greater than 50% in coordination of care (as documented) at patient's floor/unit and/or counseling patient: Coding Level of Care Code 49550 Subseq Hosp Care Lvl 3 Diagnoses Atrial fibrillation I48.91 Anorexia R63.0 Acute kidney injury N17.9 Hypokalemia E87.6 Diarrhea R19.7 Diarrhea type: unspecified type Generalized weakness R53.1 GERD (gastroesophageal reflux disease) K21.9 Hypothyroid E03.9 Hypothyroidism type: unspecified Anxiety F41.9 Bipolar 1 disorder F31.9 Depression F32.9 COPD (chronic obstructive pulmonary disease) J44.9 COPD type: unspecified COPD Hyperlipidemia E78.5 Hyperlipidemia type: unspecified Hypertension I10 Hypertension type: essential hypertension COVID-19 virus infection U07.1 (1) Diarrhea Diarrhea type: unspecified type Qualified Code(s): R19.7 - Diarrhea, unspecified (2) Hyperlipidemia Hyperlipidemia type: unspecified Qualified Code(s): E78.5 - Hyperlipidemia, unspecified (3) Hypothyroid Hypothyroidism type: unspecified Qualified Code(s): E03.9 - Hypothyroidism, unspecified (4) COPD (chronic obstructive pulmonary disease) COPD type: unspecified COPD Qualified Code(s): J44.9 - Chronic obstructive pulmonary disease, unspecified (5) Hypertension Hypertension type: essential hypertension Qualified Code(s): I10 - Essential (primary) hypertension
[2021-05-23] MEDS ORDERED: METOPROLOL TARTRATE 1 MG/ML VIAL IV STA (16:30)
[2021-05-23] MEDS: ONDANSETRON INJ 2 MG/ML 2 ML VIAL IV PRN (19:47)
[2021-05-23] MEDS ORDERED: CALCIUM CARBONATE 500 MG CHEWABLE TAB PO PRN (20:12)
[2021-05-23] MEDS: LOPERAMIDE HCL 2 MG CAP PO SCH (22:09)
[2021-05-23] MEDS: QUEtiapine FUMARATE 100 MG TABLET PO SCH ×2 (22:14→22:20)
[2021-05-23] MEDS: ROSUVASTATIN CALCIUM 10 MG TAB PO SCH (22:15)
[2021-05-23] MEDS: PREGABALIN 75 MG CAP PO SCH (22:15)
[2021-05-23] MEDS: MIRTAZAPINE TAB 15 MG TAB PO SCH (22:15)
[2021-05-23 23:11] LABS: IgA Serum 566 mg/dL (70-320); Tis Trans IgA 1 U/mL
--- NOTE | 2021-05-24 08:38 | Gastroenterology Progress Note ---
Date of Service May 24, 2021 Assessment & Plan (1) Abnormal weight loss: (2) Feeding difficulties: Stool testing for H. pylori antigen is negative. Celiac marker testing demonstrates no serological evidence of celiac disease. Palliative care continues to follow along with patient. Continue Pantoprazole 40 mg by mouth QAM 1/2 hour prior to breakfast Continue Zofran PRN nausea and vomiting Continue supportive care. Patient was encouraged to eat and she continues to reiterate that she would does not want a feeding tube. Dr. Dominguez is on for today. Please refer to supervising physician addendum for further recommendations. Admission and Anticipated Discharge Date Admission Date: May 08, 2021 Supervising Physician Co-Signing Physician Notes I have seen and examined the patient. I agree with note above by KIM Ordoñez except as noted below. HPI with patient for H and P. She denies abd pain. States she is eating more. Tolerating protein shakes. PE Abdomen pos bs, soft, no guarding nor rebound A/P anorexia---workup to date negative. In addition to studies mentioned in consult she had cortisol and thyroid studies 03/2021 negative. Feel that most of her problem related to psych issues. Recommend she emphasize 3 protein shakes a day as her main source of calories and then whatever else she wants to eat on top of that. Subjective The patient is alert, oriented, and pleasant this morning sitting upright in bed with her meal tray in front of her. She has only drank the orange juice so far this morning. She states her appetite is still minimal. Denies any nausea or vomiting. Denies abdominal pain. States bowels are moving well. Voices no complaints this morning. Review of Systems Review of Systems: All systems reviewed & are unremarkable except as noted in Subjective Physical Exam Respiratory: normal respiratory effort Gastrointestinal (Abdomen): Inspection/Auscultation: abdomen normal to inspection and normal bowel sounds Percussion/Palpation: abdomen soft; abdomen nontender, no guarding and abdomen not rigid Psychiatric: Orientation: alert and oriented to person Speech: normal rate/rhythm/volume of speech Results & Data ([facility]) Vital Signs (Past 12 Hours) Vital Signs Temp Pulse Pulse Resp BP Pulse Ox 05/24/21 07:44 36.6 C 95 H 16 148/83 H 99 05/24/21 03:22 36.9 C 83 18 106/68 97 05/24/21 01:04 81 05/23/21 22:47 36.5 C 95 H 18 102/65 94 Laboratory Results - last 24 hr 05/20/21 05/20/21 05/23/21 08:17 10:33 20:30 Troponin I 0.030 Stool H. pylori Ag SEE NOTE IgA 566 H Tiss Transglutamin IgA 1 Celiac Disease Interp SEE NOTE
[2021-05-24] MEDS: CYANOCOBALAMIN (VITAMIN B-12) 2,500 MCG TAB.SUBL SL SCH (09:37)
[2021-05-24] MEDS: APIXABAN 5 MG TABLET PO SCH ×2 (09:38→21:38)
[2021-05-24] MEDS: ROFLUMILAST 500 MCG TAB PO SCH (09:40)
[2021-05-24] MEDS: PANTOprazole 40 MG TAB PO SCH (09:40)
[2021-05-24] MEDS: ASPIRIN 81 MG ECTAB PO SCH (09:40)
[2021-05-24] MEDS: METOPROLOL TARTRATE 25 MG TAB PO SCH ×2 (09:41→21:39)
[2021-05-24] MEDS: lamoTRIgine 100 MG TAB PO SCH (09:41)
[2021-05-24] MEDS: POTASSIUM CHLORIDE CRTAB 20 MEQ TABCR PO SCH (09:43)
[2021-05-24] MEDS ORDERED: METOPROLOL TARTRATE 1 MG/ML VIAL IV STA (10:02)
--- NOTE | 2021-05-24 10:57 | Communication Note ---
Date of Service: May 24, 2021 case reviewed with liaison, interim chart reviewed. Patient tearful on interaction with liaison but much more alert, able to feed self, and is verbalizing things that she is upset about. I would not adjust her psychoactive medications further today, depending on today's course and repeat MSE in am consider either retitration of Seroquel (but not XR) or titration of Remeron to further trial.
[2021-05-24] MEDS: METOPROLOL TARTRATE 1 MG/ML VIAL IV PRN (19:24)
[2021-05-24] MEDS: PREGABALIN 75 MG CAP PO SCH (21:38)
[2021-05-24] MEDS: QUEtiapine FUMARATE 100 MG TABLET PO SCH (21:39)
[2021-05-24] MEDS: MIRTAZAPINE TAB 15 MG TAB PO SCH (21:40)
[2021-05-24] MEDS: LOPERAMIDE HCL 2 MG CAP PO SCH (21:40)
[2021-05-24] MEDS: ROSUVASTATIN CALCIUM 10 MG TAB PO SCH (21:40)
--- NOTE | 2021-05-25 06:06 | Electrocardiogram Report ---
Test Reason : Blood Pressure : / mmHG Vent. Rate : 089 BPM Atrial Rate : 072 BPM P-R Int : 000 ms QRS Dur : 086 ms QT Int : 342 ms P-R-T Axes : 000 030 159 degrees QTc Int : 416 ms Atrial fibrillation Abnormal ECG When compared with ECG of 12-MAY-2021 10:55, Vent. rate has increased BY 43 BPM T wave inversion now evident in Lateral leads QT has lengthened Confirmed by Hu Sanchez ([id number]) on 05/25/2021 6:06:22 AM Referred By: REFERRED SELF Confirmed By:Hu Sanchez
--- NOTE | 2021-05-25 08:41 | Gastroenterology Progress Note ---
Date of Service May 25, 2021 Assessment & Plan (1) Anorexia: (2) Abnormal weight loss: Anorexia: The patient work-up has been negative to date. The patient states that she continues to feel as though her problems are related to medication changes and a lack of trust in the doctors at times. She has been a longtime patient of Dr. Clark and is nervous as he is not involved in her care. She knows that she needs to eat to go home. She is doing her best. Weight is 62.8 kg. Discussed letting nursing or the kitchen staff know when she would like something else in place of the meal she was brought. Continue to emphasize protein shakes 3 times daily. The patient does states she is enjoying these. Admission and Anticipated Discharge Date Admission Date: May 08, 2021 Supervising Physician Co-Signing Physician Notes I have seen and examined the patient. I agree with note above by KIM Ordoñez except as noted below. HPI with patient for H and P. She states she ate 60% of her food today. PE Abdomen pos bs, soft, no guarding nor rebound A/P anorexia---workup to date negative. Feel that most of her problem related t o psych issues. Again recommend she emphasize 3 protein shakes a day as her main source of calories and then whatever else she wants to eat on top of that. Will sign off. Please call for further questions. Subjective The patient is alert, oriented, and pleasant this morning sitting upright in bed with her meal tray in front of her. She tells me this morning that she has never really been a breakfast eater. Discussed what food she would be willing to eat this morning. Kitchen staff was able to get her the foods that she is requesting. She does feel that her appetite is improving somewhat. She knows that she needs to eat so that she can go home. Denies any nausea or vomiting. Denies abdominal pain. States bowels are moving well. Voices no complaints this morning. Her weight this morning was 62.8 kg. Review of Systems Review of Systems: All systems reviewed & are unremarkable except as noted in Subjective Physical Exam Respiratory: normal respiratory effort Gastrointestinal (Abdomen): Inspection/Auscultation: abdomen normal to inspection and normal bowel sounds Percussion/Palpation: abdomen soft; abdomen nontender, no guarding and abdomen not rigid Psychiatric: Orientation: alert and oriented to person Speech: normal rate/rhythm/volume of speech Results [facility]) Vital Signs (Past 12 Hours) Vital Signs Temp Pulse Pulse Resp BP Pulse Ox 05/25/21 08:20 37.0 C 99 H 16 139/88 96 05/25/21 08:10 85 05/25/21 03:56 36.1 C L 76 20 114/70 92 05/25/21 00:00 92 H 05/24/21 23:55 36.5 C 94 H 20 93/61 L 93 05/24/21 21:30 123/78
[2021-05-25] MEDS: lamoTRIgine 100 MG TAB PO SCH (08:59)
[2021-05-25] MEDS: ASPIRIN 81 MG ECTAB PO SCH (08:59)
[2021-05-25] MEDS: APIXABAN 5 MG TABLET PO SCH ×2 (08:59→20:42)
[2021-05-25] MEDS: METOPROLOL TARTRATE 25 MG TAB PO SCH (08:59)
[2021-05-25] MEDS: CYANOCOBALAMIN (VITAMIN B-12) 2,500 MCG TAB.SUBL SL SCH (08:59)
[2021-05-25] MEDS: PANTOprazole 40 MG TAB PO SCH (09:00)
[2021-05-25] MEDS: ROFLUMILAST 500 MCG TAB PO SCH (09:00)
[2021-05-25] MEDS: POTASSIUM CHLORIDE CRTAB 20 MEQ TABCR PO SCH (09:42)
--- NOTE | 2021-05-25 10:03 | Communication Note ---
Date of Service: May 25, 2021 interim chart reviewed, case discussed with liaison. No periods of breakthrough agitation since last review. Alert this am and interacting with GI information resource consultant. Given number of psychiatric medication changes reached out to Dr. Clark as a courtesy. He is supportive of changes thus far. No additional med recs at this time. Dr. Avendaño to assume information resource consultant responsibilities of service on 05/26/21 8 am.
--- NOTE | 2021-05-25 15:54 | Hospitalist Progress Note ---
Date of Service May 24, 2021 Assessment & Plan (1) Atrial fibrillation: on eliquis for anticoagulation bradycardia on 05/12, could be tachybrady syndrome, HR in 40's, no symptoms EKG showed afib with slow AV conduction digoxin is 1.8, held digoxin on 05/12, HR up to 70-80s reduced metoprolol to 12.5mg BID stopped Digoxin as it might be contributing to anorexia and depression? monitor rates on tele, can go up on metoprolol if HR goes up patient was not compliant with Lopressor encouraged her to take as prescribed, HR better with 25mg BID and one dose of Lopressor 5mg now better, will likely increase to 50mg BID (2) Anorexia: main issue, not eating at all for about three weeks no response to Effexor (stopped) Marinol 5mg BID today continue Remeron to 15mg HS maybe Digoxin is causing anorexia and depression? stopped this almost 2 weeks ago most likely source is bipolar with depression appreciate psychiatry consult, reduced Seroquel trying to limit medications will take some time patient would like to avoid feeding tube if possible she is eating better past 48 hours (3) Acute kidney injury: Creatinine 1.46 upon admission Cr improved to baseline after IV fluids hypernatremia resolved BMP on 05/22 with normal Cr and electrolytes (4) Hypokalemia: K normal on 05/22 (5) Diarrhea: Work-up at last admission was C. difficile negative, stool culture negative, and improved with Cipro and Flagyl treatment for nonspecific proctocolitis noted on CT of abdomen pelvis on 04/16 Nurses report that she had 3 bowel movements in the emergency department, but they were of normal caliber Her symptoms had improved with Imodium and Questran during last admission. Continue loperamide 2 mg p.o. at bedtime. Resume Questran, which is presently not on her medication list and unclear if it was discontinued or dropped off resolved (6) Generalized weakness: history of profound weakness with infection and stress was supposed to follow up with [facility] movement disorder will need a single fiber EMG has been tested for myasthenia gravis and Lambert Eaton in the past, negative order PT/OT not eating enough to give her energy, try to stimulate appetite with Remeron and Marinol will plan for SNF rehab once eating and more energized (7) GERD (gastroesophageal reflux disease): Continue omeprazole 20 mg daily for now (8) Hypothyroid: Is a diagnosis of hypothyroidism, is not on any thyroid hormone replacement (9) Anxiety: Bipolar 1 disorder/Anxiety with depression- Was noted in the past to be contributing to overall symptomatology Continue lamotrigine 100mg qAM, pregabalin 75mg, quetiapine 100mg HS, Remeron 15mg HS stopped Effexor per psychiatry appreciate their recommendations, they will manage meds, no other changes at this time, monitor response (10) Bipolar 1 disorder: See above (11) Depression: See above severe, not eating well, lacks motivation continue Remeron (12) COPD (chronic obstructive pulmonary disease): Continue as needed duo nebs (13) Hyperlipidemia: Continue rosuvastatin (14) Hypertension: See above Admission and Anticipated Discharge Date Admission Date: May 08, 2021 Subjective patient doing a little better, eating a little more, drank nutrition shake she is agreeing to take medications I promised her that if she takes her metoprolol and HR is stable I will stop service counselor, try to move to third floor spoke to Dr. Duenas, appreciate her input updated her Review of Systems Review of Systems: All systems reviewed & are unremarkable except as noted in Subjective Constitutional: + weakness; no fever Respiratory: no cough and no dyspnea Cardiovascular: no chest pain and no edema Psychiatric: + depression (mood slowly improving, smiling and joking today) and + change in appetite (getting better) Physical Exam Constitutional: well developed, + thin and + frail appearing; no acute distress Neck: trachea midline, no thyromegaly Respiratory: normal respiratory effort, lungs clear to auscultation Cardiovascular: Rate/Rhythm: + tachycardic and + irregularly irregular Heart Sounds: normal S1 and normal S2; no murmur Gastrointestinal (Abdomen): normal bowel sounds, soft, nontender, no hepatosplenomegaly Musculoskeletal: Head/Neck/Chest: normocephalic, head atraumatic and neck supple Extremities: extremities normal to inspection and + abnormal strength (generalized weakness, cannot stand up); no cyanosis, no clubbing and no petechiae Skin: no rashes, warm and dry Neurologic: patellar DTR's 2+ bilat, sensation intact and PERRL, EOMI, accommodation nl, no face palsy, no dysarthria Psychiatric: Orientation: alert and oriented x 3 Affect: + anxious affect Mood: + depressed mood Lymphatic: no cervical or axillary lymphadenopathy Results & Data Results & Data ([facility]) Vital Signs (Past 12 Hours) Vital Signs Temp Pulse Pulse Resp BP Pulse Ox 05/25/21 15:38 36.5 C 88 20 115/74 99 05/25/21 12:26 36.7 C 89 22 104/73 2 L 05/25/21 08:20 37.0 C 99 H 16 139/88 96 05/25/21 08:10 85 05/25/21 03:56 36.1 C L 76 20 114/70 92 PG Care Time/CCT Total # of Minutes Spent Total Time Spent with Patient: Total time spent is greater than 50% in coordination of care (as documented) at patient's floor/unit and/or counseling patient: Coding Level of Care Code 69471 Subseq Hosp Care Lvl 2 Diagnoses Atrial fibrillation I48.91 Anorexia R63.0 Acute kidney injury N17.9 Hypokalemia E87.6 Diarrhea R19.7 Diarrhea type: unspecified type Generalized weakness R53.1 GERD (gastroesophageal reflux disease) K21.9 Hypothyroid E03.9 Hypothyroidism type: unspecified Anxiety F41.9 Bipolar 1 disorder F31.9 Depression F32.9 COPD (chronic obstructive pulmonary disease) J44.9 COPD type: unspecified COPD Hyperlipidemia E78.5 Hyperlipidemia type: unspecified Hypertension I10 Hypertension type: essential hypertension (1) Diarrhea Diarrhea type: unspecified type Qualified Code(s): R19.7 - Diarrhea, unspecified (2) Hyperlipidemia Hyperlipidemia type: unspecified Qualified Code(s): E78.5 - Hyperlipidemia, unspecified (3) Hypothyroid Hypothyroidism type: unspecified Qualified Code(s): E03.9 - Hypothyroidism, unspecified (4) COPD (chronic obstructive pulmonary disease) COPD type: unspecified COPD Qualified Code(s): J44.9 - Chronic obstructive pulmonary disease, unspecified (5) Hypertension Hypertension type: essential hypertension Qualified Code(s): I10 - Essential (primary) hypertension
--- NOTE | 2021-05-25 20:36 | Hospitalist Progress Note ---
Date of Service May 25, 2021 Assessment & Plan (1) Atrial fibrillation: on eliquis for anticoagulation bradycardia on 05/12, could be tachybrady syndrome, HR in 40's, no symptoms EKG showed afib with slow AV conduction digoxin was 1.8, held digoxin on 05/12, HR up to 70-80s reduced metoprolol to 12.5mg BID stopped Digoxin as it might be contributing to anorexia and depression? rates 100-130 today, mostly around 100, compliant with Lopressor increase dose to 50mg BID move off tele today as promised (2) Anorexia: main issue, not eating at all for about three weeks no response to Effexor (stopped) Marinol 5mg BID today continue Remeron to 15mg HS maybe Digoxin is causing anorexia and depression? stopped this almost 2 weeks ago most likely source is bipolar with depression appreciate psychiatry consult, reduced Seroquel trying to limit medications will take some time patient would like to avoid feeding tube if possible she ate better today than she has in several days/weeks continue to encourage her as she is getting better (3) Acute kidney injury: Creatinine 1.46 upon admission Cr improved to baseline after IV fluids hypernatremia resolved BMP on 05/22 with normal Cr and electrolytes (4) Hypokalemia: K normal on 05/22 (5) Diarrhea: Work-up at last admission was C. difficile negative, stool culture negative, and improved with Cipro and Flagyl treatment for nonspecific proctocolitis noted on CT of abdomen pelvis on 04/16 Nurses report that she had 3 bowel movements in the emergency department, but they were of normal caliber Her symptoms had improved with Imodium and Questran during last admission. Continue loperamide 2 mg p.o. at bedtime. Resume Questran, which is presently not on her medication list and unclear if it was discontinued or dropped off resolved (6) Generalized weakness: history of profound weakness with infection and stress was supposed to follow up with [facility] movement disorder will need a single fiber EMG has been tested for myasthenia gravis and [facility] in the past, negative order PT/OT not eating enough to give her energy, try to stimulate appetite with Remeron and Marinol will plan for SNF rehab once eating and more energized (7) GERD (gastroesophageal reflux disease): Continue omeprazole 20 mg daily for now (8) Hypothyroid: Is a diagnosis of hypothyroidism, is not on any thyroid hormone replacemen t (9) Anxiety: Bipolar 1 disorder/Anxiety with depression- Was noted in the past to be contributing to overall symptomatology Continue lamotrigine 100mg qAM, pregabalin 75mg, quetiapine 100mg HS, Remeron 15mg HS stopped Effexor per psychiatry appreciate their recommendations, they will manage meds, no other changes at this time, monitor response (10) Bipolar 1 disorder: See above (11) Depression: See above severe, not eating well, lacks motivation continue Remeron (12) COPD (chronic obstructive pulmonary disease): Continue as needed duo nebs (13) Hyperlipidemia: Continue rosuvastatin (14) Hypertension: See above Admission and Anticipated Discharge Date Admission Date: May 08, 2021 Subjective patient is much happier today, smiling more than I have seen her smile reviewed tele, HR with decent control, will increase Lopressor to 50 BID, she is compliant eating more, had cheese sandwich, soup, oranges for lunch, drinking nutrition shakes met with her at the bedside will move to medical floor today, asked RN to move up to third floor Review of Systems Review of Systems: All systems reviewed & are unremarkable except as noted in Subjective Physical Exam Constitutional: well developed; no acute distress Neck: trachea midline, no thyromegaly Respiratory: normal respiratory effort, lungs clear to auscultation Cardiovascular: Rate/Rhythm: + tachycardic and + irregularly irregular Heart Sounds: normal S1 and normal S2; no murmur Gastrointestinal (Abdomen): normal bowel sounds, soft, nontender, no hepatosplenomegaly Musculoskeletal: Head/Neck/Chest: normocephalic, head atraumatic and neck s upple Extremities: extremities normal to inspection; no cyanosis, no clubbing and no petechiae Skin: no rashes, warm and dry Neurologic: patellar DTR's 2+ bilat, sensation intact and PERRL, EOMI, accommodation nl, no face palsy, no dysarthria Psychiatric: Orientation: alert, oriented x 3 and cooperative Affect: euthymic affect Lymphatic: no cervical or axillary lymphadenopathy Results & Data Results & Data ([facility]) Vital Signs (Past 12 Hours) Vital Signs Temp Pulse Pulse Resp BP Pulse Ox 05/25/21 19:39 36.7 C 93 H 20 120/72 99 05/25/21 15:58 88 05/25/21 15:38 36.5 C 88 20 115/74 99 05/25/21 12:26 36.7 C 89 22 104/73 2 L Medications Administered Current Inpatient Medications Acetaminophen (Acetaminophen 325 Mg Tab) 650 mg PO Q4H PRN PRN Reason: Pain or Fever Stop: 06/08/21 00:56 Last Admin: 05/24/21 19:24 Dose: 650 mg Documented by: Albuterol (Albuterol Hfa 8 Gm Inhaler (Combivent Respimat P&T Subs)) 2 puffs INH Q6H PRN PRN Reason: Shortness Of Breath Stop: 06/08/21 02:27 Apixaban (Apixaban 5 Mg Tablet) 5 mg PO BID [facility] Stop: 06/08/21 00:56 Last Admin: 05/25/21 08:59 Dose: 5 mg Documented by: Aspirin (Aspirin 81 Mg Ectab) 81 mg PO DAILY [facility] Stop: 06/08/21 08:59 Last Admin: 05/25/21 08:59 Dose: 81 mg Documented by: Calcium Carbonate (Calcium Carbonate 500 Mg Chewable Tab) 500 mg PO Q6H PRN PRN Reason: Indigestion Stop: 06/22/21 20:11 Last Admin: 05/23/21 20:38 Dose: 500 mg Documented by: Cyanocobalamin (Cyanocobalamin (Vitamin B-12) 2,500 Mcg Tab.Subl) 5,000 mcg SL DAILY [facility] Stop: 06/08/21 08:59 Last Admin: 05/25/21 08:59 Dose: 5,000 mcg Documented by: Dronabinol (Dronabinol 2.5 Mg Cap) 5 mg PO BID [facility] Stop: 06/21/21 20:59 Last Admin: 05/25/21 09:04 Dose: 5 mg Documented by: Ipratropium [place] (Ipratropium Hfa Inhaler (Combivent Respimat P&T Subs)) 2 puffs INH Q6R PRN PRN Reason: Shortness Of Breath Stop: 06/08/21 02:27 Lamotrigine (Lamotrigine 100 Mg Tab) 100 mg PO QAM [facility] Stop: 06/22/21 08:59 Last Admin: 05/25/21 08:59 Dose: 100 mg Documented by: Loperamide HCl (Loperamide Hcl 2 Mg Cap) 2 mg PO [facility] Stop: 06/08/21 20:59 Last Admin: 05/24/21 21:40 Dose: Not Given Documented by: Metoprolol Tartrate (Metoprolol Tartrate 50 Mg Tab) 50 mg PO BID [facility] Stop: 06/24/21 20:59 Mirtazapine (Mirtazapine Tab 15 Mg Tab) 15 mg PO [facility] Stop: 06/12/21 20:59 Last Admin: 05/24/21 21:40 Dose: 15 mg Documented by: Nitroglycerin (Nitroglycerin Sl 0.4 Mg/Tab Tab) 0.4 mg SL UD PRN PRN Reason: Angina Stop: 06/08/21 00:56 Ondansetron HCl (Ondansetron 4 Mg Od Tab) 4 mg PO Q8H PRN PRN Reason: nausea and vomiting Stop: 06/08/21 00:56 Last Admin: 05/19/21 11:30 Dose: 4 mg Documented by: Ondansetron HCl (Ondansetron Inj 2 Mg/Ml 2 Ml Vial) 4 mg IV Q6H PRN PRN Reason: Nausea And Vomiting Stop: 06/17/21 08:23 Last Admin: 05/23/21 19:47 Dose: 4 mg Documented by: Pantoprazole Sodium (Pantoprazole 40 Mg Tab) 40 mg PO [facility] Stop: 06/18/21 17:44 Last Admin: 05/25/21 09:00 Dose: 40 mg Documented by: Potassium Chloride (Potassium Chloride Crtab 20 Meq Tabcr) 20 meq PO [facility] Stop: 06/13/21 08:59 Last Admin: 05/25/21 09:42 Dose: 20 meq Documented by: Pregabalin (Pregabalin 75 Mg Cap) 75 mg PO [facility] Stop: 06/08/21 20:59 Last Admin: 05/24/21 21:38 Dose: 75 mg Documented by: Quetiapine Fumarate (Quetiapine Fumarate 100 Mg Tablet) 100 mg PO [facility] Stop: 06/22/21 19:59 Last Admin: 05/24/21 21:39 Dose: 100 mg Documented by: Roflumilast (Roflumilast 500 Mcg Tab) 500 mcg PO [facility] Stop: 06/08/21 08:59 Last Admin: 05/25/21 09:00 Dose: 500 mcg Documented by: Rosuvastatin Calcium (Rosuvastatin Calcium 10 Mg Tab) 10 mg PO HS [facility] Stop: 06/08/21 20:59 Last Admin: 05/24/21 21:40 Dose: 10 mg Documented by: PG Care Time/CCT Total # of Minutes Spent Total Time Spent with Patient: Total time spent is greater than 50% in coordination of care (as documented) at patient's floor/unit and/or counseling patient: Coding Level of Care Code 13457 Subseq Hosp Care Lvl 2 Diagnoses Atrial fibrillation I48.91 Anorexia R63.0 Acute kidney injury N17.9 Hypokalemia E87.6 Diarrhea R19.7 Diarrhea type: unspecified type Generalized weakness R53.1 GERD (gastroesophageal reflux disease) K21.9 Hypothyroid E03.9 Hypothyroidism type: unspecified Anxiety F41.9 Bipolar 1 disorder F31.9 Depression F32.9 COPD (chronic obstructive pulmonary disease) J44.9 COPD type: unspecified COPD Hyperlipidemia E78.5 Hyperlipidemia type: unspecified Hypertension I10 Hypertension type: essential hypertension (1) Diarrhea Diarrhea type: unspecified type Qualified Code(s): R19.7 - Diarrhea, unspecified (2) Hypothyroid Hypothyroidism type: unspecified Qualified Code(s): E03.9 - Hypothyroidism, unspecified (3) COPD (chronic obstructive pulmonary disease) COPD type: unspecified COPD Qualified Code(s): J44.9 - Chronic obstructive pulmonary disease, unspecified (4) Hyperlipidemia Hyperlipidemia type: unspecified Qualified Code(s): E78.5 - Hyperlipidemia, unspecified (5) Hypertension Hypertension type: essential hypertension Qualified Code(s): I10 - Essential (primary) hypertension
[2021-05-25] MEDS: PREGABALIN 75 MG CAP PO SCH (20:42)
[2021-05-25] MEDS: METOPROLOL TARTRATE 50 MG TAB PO SCH (20:42)
[2021-05-25] MEDS: MIRTAZAPINE TAB 15 MG TAB PO SCH (20:42)
[2021-05-25] MEDS: QUEtiapine FUMARATE 100 MG TABLET PO SCH (20:42)
[2021-05-25] MEDS: ROSUVASTATIN CALCIUM 10 MG TAB PO SCH (20:42)
[2021-05-25] MEDS: LOPERAMIDE HCL 2 MG CAP PO SCH (20:42)
[2021-05-26] MEDS: METOPROLOL TARTRATE 50 MG TAB PO SCH ×2 (07:54→20:05)
[2021-05-26] MEDS: CYANOCOBALAMIN (VITAMIN B-12) 2,500 MCG TAB.SUBL SL SCH (07:55)
[2021-05-26] MEDS: ASPIRIN 81 MG ECTAB PO SCH (07:55)
[2021-05-26] MEDS: POTASSIUM CHLORIDE CRTAB 20 MEQ TABCR PO SCH (07:55)
[2021-05-26] MEDS: PANTOprazole 40 MG TAB PO SCH (07:55)
[2021-05-26] MEDS: APIXABAN 5 MG TABLET PO SCH ×2 (07:55→20:05)
[2021-05-26] MEDS: lamoTRIgine 100 MG TAB PO SCH (07:55)
[2021-05-26] MEDS: ROFLUMILAST 500 MCG TAB PO SCH (07:56)
[2021-05-26 08:06] LABS: Calcium 7.6 mg/dl (8.5-10.1); Est GFR (African American) 63.6 ml/min; Est GFR (Non-African American) 54.9 ml/min; Magnesium 2.1 mg/dl (1.8-2.4); Potassium 4.2 mmol/L (3.5-5.1)
--- NOTE | 2021-05-26 16:27 | Hospitalist Progress Note ---
Date of Service May 26, 2021 Assessment & Plan (1) Atrial fibrillation: on eliquis for anticoagulation bradycardia on 05/12, could be tachybrady syndrome, HR in 40's, no symptoms EKG showed afib with slow AV conduction digoxin was 1.8, held digoxin on 05/12, HR up to 70-80s reduced metoprolol to 12.5mg BID stopped Digoxin as it might be contributing to anorexia and depression? rates 90-100's on Lopressor 50mg BID does drop to 60's at times, would not increase Lopressor further (2) Anorexia: main issue, not eating at all for about three weeks no response to Effexor (stopped) Marinol 5mg BID continue Remeron to 15mg HS thought Digoxin was causing anorexia and depression? stopped this almost 2 weeks ago most likely source is bipolar with depression appreciate psychiatry consult, reduced Seroquel trying to limit medications will take some time patient would like to avoid feeding tube if possible eating better, more consistently the past few days ready to try for rehab Saturday (3) Acute kidney injury: Creatinine 1.46 upon admission Cr improved to baseline after IV fluids hypernatremia resolved BMP on 05/26 with normal Cr and electrolytes (4) Hypokalemia: K normal on 05/26 (5) Diarrhea: Work-up at last admission was C. difficile negative, stool culture negative, and improved with Cipro and Flagyl treatment for nonspecific proctocolitis noted on CT of abdomen pelvis on 04/16 Nurses report that she had 3 bowel movements in the emergency department, but they were of normal caliber Her symptoms had improved with Imodium and Questran during last admission. Continue loperamide 2 mg p.o. at bedtime. Resume Questran, which is presently not on her medication list and unclear if it was discontinued or dropped off resolved (6) Generalized weakness: history of profound weakness with infection and stress was supposed to follow up with [facility] movement disorder will need a single fiber EMG has been tested for myasthenia gravis and [facility] in the past, negative order PT/OT not eating enough to give her energy, try to stimulate appetite with Remeron and Marinol will plan for SNF rehab Saturday or later, needs auth (7) GERD (gastroesophageal reflux disease): Continue omeprazole 20 mg daily for now (8) Hypothyroid: Is a diagnosis of hypothyroidism, is not on any thyroid hormone replacement (9) Anxiety: Bipolar 1 disorder/Anxiety with depression- Was noted in the past to be contributing to overall symptomatology Continue lamotrigine 100mg qAM, pregabalin 75mg, quetiapine 100mg HS, Remeron 15mg HS stopped Effexor per psychiatry appreciate their recommendations, they will manage meds, no other changes at this time, monitor response (10) Bipolar 1 disorder: See above (11) Depression: See above severe, not eating well, lacks motivation continue Remeron (12) COPD (chronic obstructive pulmonary disease): Continue as needed duo nebs (13) Hyperlipidemia: Continue rosuvastatin (14) Hypertension: See above Admission and Anticipated Discharge Date Admission Date: May 08, 2021 Subjective patient doing better each day, happier, making jokes, participating in therapy eating more, actually has an appetite, drinking nutrition shakes discussed going to rehab Saturday, she agrees HR is well controlled on increased dose of metoprolol checked labs today, Cr, K, Mg, phos normal Review of Systems Review of Systems: All systems reviewed & are unremarkable except as noted in Subjective Physical Exam Constitutional: well developed; no acute distress Neck: trachea midline, no thyromegaly Respiratory: normal respiratory effort, lungs clear to auscultation Cardiovascular: Rate/Rhythm: regular rate and + irregularly irregular Heart Sounds: normal S1 and normal S2; no murmur Gastrointestinal (Abdomen): normal bowel sounds, soft, nontender, no hepatosplenomegaly Musculoskeletal: Head/Neck/Chest: normocephalic, head atraumatic and neck supple Extremities: extremities normal to inspection; no cyanosis, no clubbing and no petechiae Skin: no rashes, warm and dry Neurologic: patellar DTR's 2+ bilat, sensation intact and PERRL, EOMI, accommodation nl, no face palsy, no dysarthria Psychiatric: A+Ox3, euthymic affect Orientation: alert, oriented x 3 and cooperative Affect: euthymic affect Lymphatic: no cervical or axillary lymphadenopathy Results & Data Results & Data ([facility]) Vital Signs (Past 12 Hours) Vital Signs Temp Pulse Resp BP Pulse Ox 05/26/21 15:48 36.7 C 60 16 116/73 97 05/26/21 11:52 36.7 C 74 16 105/70 99 05/26/21 07:39 36.7 C 107 H 18 140/80 99 Laboratory Results Laboratory Results - last 24 hr 05/26/21 07:00 Sodium 142 Potassium 4.2 Chloride 107 Carbon Dioxide 33 H Anion Gap 3.0 BUN 14 Creatinine 0.98 Est Cr Clr Drug Dosing 39.0 Est GFR ( Amer) 63.6 Est GFR (Non-Af Amer) 54.9 BUN/Creatinine Ratio 14.0 Glucose 83 Calcium 7.6 L Phosphorus 3.0 Magnesium 2.1 Medications Administered Current Inpatient Medications Acetaminophen (Acetaminophen 325 Mg Tab) 650 mg PO Q4H PRN PRN Reason: Pain or Fever Stop: 06/08/21 00:56 Last Admin: 05/24/21 19:24 Dose: 650 mg Documented by: Albuterol (Albuterol Hfa 8 Gm Inhaler (Combivent Respimat P&T Subs)) 2 puffs INH Q6H PRN PRN Reason: Shortness Of Breath Stop: 06/08/21 02:27 Apixaban (Apixaban 5 Mg Tablet) 5 mg PO BID [facility] Stop: 06/08/21 00:56 Last Admin: 05/26/21 07:55 Dose: 5 mg Documented by: Aspirin (Aspirin 81 Mg Ectab) 81 mg PO DAILY [facility] Stop: 06/08/21 08:59 Last Admin: 05/26/21 07:55 Dose: 81 mg Documented by: Calcium Carbonate (Calcium Carbonate 500 Mg Chewable Tab) 500 mg PO Q6H PRN PRN Reason: Indigestion Stop: 06/22/21 20:11 Last Admin: 05/23/21 20:38 Dose: 500 mg Documented by: Cyanocobalamin (Cyanocobalamin (Vitamin B-12) 2,500 Mcg Tab.Subl) 5,000 mcg SL DAILY [facility] Stop: 06/08/21 08:59 Last Admin: 05/26/21 07:55 Dose: 5,000 mcg Documented by: Dronabinol (Dronabinol 2.5 Mg Cap) 5 mg PO BID [facility] Stop: 06/21/21 20:59 Last Admin: 05/26/21 07:54 Dose: 5 mg Documented by: Ipratropium [place] (Ipratropium Hfa Inhaler (Combivent Respimat P&T Subs)) 2 puffs INH Q6R PRN PRN Reason: Shortness Of Breath Stop: 06/08/21 02:27 Lamotrigine (Lamotrigine 100 Mg Tab) 100 mg PO [facility] Stop: 06/22/21 08:59 Last Admin: 05/26/21 07:55 Dose: 100 mg Documented by: Loperamide HCl (Loperamide Hcl 2 Mg Cap) 2 mg PO [facility] Stop: 06/08/21 20:59 Last Admin: 05/25/21 20:42 Dose: 2 mg Documented by: Metoprolol Tartrate (Metoprolol Tartrate 50 Mg Tab) 50 mg PO BID [facility] Stop: 06/24/21 20:59 Last Admin: 05/26/21 07:54 Dose: 50 mg Documented by: Mirtazapine (Mirtazapine Tab 15 Mg Tab) 15 mg PO [facility] Stop: 06/12/21 20:59 Last Admin: 05/25/21 20:42 Dose: 15 mg Documented by: Nitroglycerin (Nitroglycerin Sl 0.4 Mg/Tab Tab) 0.4 mg SL UD PRN PRN Reason: Angina Stop: 06/08/21 00:56 Ondansetron HCl (Ondansetron 4 Mg Od Tab) 4 mg PO Q8H PRN PRN Reason: nausea and vomiting Stop: 06/08/21 00:56 Last Admin: 05/19/21 11:30 Dose: 4 mg Documented by: Ondansetron HCl (Ondansetron Inj 2 Mg/Ml 2 Ml Vial) 4 mg IV Q6H PRN PRN Reason: Nausea And Vomiting Stop: 06/17/21 08:23 Last Admin: 05/23/21 19:47 Dose: 4 mg Documented by: Pantoprazole Sodium (Pantoprazole 40 Mg Tab) 40 mg PO [facility] Stop: 06/18/21 17:44 Last Admin: 05/26/21 07:55 Dose: 40 mg Documented by: Potassium Chloride (Potassium Chloride Crtab 20 Meq Tabcr) 20 meq PO [facility] Stop: 06/13/21 08:59 Last Admin: 05/26/21 07:55 Dose: 20 meq Documented by: Pregabalin (Pregabalin 75 Mg Cap) 75 mg PO [facility] Stop: 06/08/21 20:59 Last Admin: 05/25/21 20:42 Dose: 75 mg Documented by: Quetiapine Fumarate (Quetiapine Fumarate 100 Mg Tablet) 100 mg PO [facility] Stop: 06/22/21 19:59 Last Admin: 05/25/21 20:42 Dose: 100 mg Documented by: Roflumilast (Roflumilast 500 Mcg Tab) 500 mcg PO QAM [facility] Stop: 06/08/21 08:59 Last Admin: 05/26/21 07:56 Dose: 500 mcg Documented by: Rosuvastatin Calcium (Rosuvastatin Calcium 10 Mg Tab) 10 mg PO [facility] Stop: 06/08/21 20:59 Last Admin: 05/25/21 20:42 Dose: 10 mg Documented by: PG Care Time/CCT Total # of Minutes Spent Total Time Spent with Patient: Total time spent is greater than 50% in coordination of care (as documented) at patient's floor/unit and/or counseling patient: Coding Level of Care Code 70773 Subseq Hosp Care Lvl 2 Diagnoses Atrial fibrillation I48.91 Anorexia R63.0 Acute kidney injury N17.9 Hypokalemia E87.6 Diarrhea R19.7 Diarrhea type: unspecified type Generalized weakness R53.1 GERD (gastroesophageal reflux disease) K21.9 Hypothyroid E03.9 Hypothyroidism type: unspecified Anxiety F41.9 Bipolar 1 disorder F31.9 Depression F32.9 COPD (chronic obstructive pulmonary disease) J44.9 COPD type: unspecified COPD Hyperlipidemia E78.5 Hyperlipidemia type: unspecified Hypertension I10 Hypertension type: essential hypertension (1) Diarrhea Diarrhea type: unspecified type Qualified Code(s): R19.7 - Diarrhea, unspecified (2) Hyperlipidemia Hyperlipidemia type: unspecified Qualified Code(s): E78.5 - Hyperlipidemia, unspecified (3) Hypothyroid Hypothyroidism type: unspecified Qualified Code(s): E03.9 - Hypothyroidism, unspecified (4) COPD (chronic obstructive pulmonary disease) COPD type: unspecified COPD Qualified Code(s): J44.9 - Chronic obstructive pulmonary disease, unspecified (5) Hypertension Hypertension type: essential hypertension Qualified Code(s): I10 - Essential (primary) hypertension
[2021-05-26] MEDS: PREGABALIN 75 MG CAP PO SCH (20:04)
[2021-05-26] MEDS: LOPERAMIDE HCL 2 MG CAP PO SCH (20:05)
[2021-05-26] MEDS: QUEtiapine FUMARATE 100 MG TABLET PO SCH (20:06)
[2021-05-26] MEDS: ROSUVASTATIN CALCIUM 10 MG TAB PO SCH (20:06)
[2021-05-26] MEDS: MIRTAZAPINE TAB 15 MG TAB PO SCH (20:06)
[2021-05-27] MEDS: METOPROLOL TARTRATE 50 MG TAB PO SCH ×2 (08:11→21:28)
[2021-05-27] MEDS: ROFLUMILAST 500 MCG TAB PO SCH (08:12)
[2021-05-27] MEDS: APIXABAN 5 MG TABLET PO SCH ×2 (08:12→21:23)
[2021-05-27] MEDS: ASPIRIN 81 MG ECTAB PO SCH (08:12)
[2021-05-27] MEDS: lamoTRIgine 100 MG TAB PO SCH (08:12)
[2021-05-27] MEDS: CYANOCOBALAMIN (VITAMIN B-12) 2,500 MCG TAB.SUBL SL SCH (08:13)
[2021-05-27] MEDS: PANTOprazole 40 MG TAB PO SCH (08:13)
[2021-05-27] MEDS: POTASSIUM CHLORIDE CRTAB 20 MEQ TABCR PO SCH (08:13)
--- NOTE | 2021-05-27 12:57 | Hospitalist Progress Note ---
Date of Service May 27, 2021 Assessment & Plan (1) Atrial fibrillation: on eliquis for anticoagulation bradycardia on 05/12, could be tachybrady syndrome, HR in 40's, no symptoms EKG showed afib with slow AV conduction digoxin was 1.8, held digoxin on 05/12, HR up to 70-80s reduced metoprolol to 12.5mg BID stopped Digoxin as it might be contributing to anorexia and depression? rates 90-100's on Lopressor 50mg BID does drop to 60's at times, would not increase Lopressor further for now (2) Anorexia: main issue, not eating at all for about three weeks no response to Effexor (stopped) Marinol 5mg BID continue Remeron to 15mg HS thought Digoxin was causing anorexia and depression? stopped this almost 2 weeks ago most likely source is bipolar with depression appreciate psychiatry consult, reduced Seroquel trying to limit medications patient would like to avoid feeding tube if possible eating better, more consistently the past few days ready to try for rehab Saturday and can follow this issue as outpatient (3) Acute kidney injury: Creatinine 1.46 upon admission Cr improved to baseline after IV fluids hypernatremia resolved BMP on 05/26 with normal Cr and electrolytes (4) Hypokalemia: K normal on 05/26 (5) Diarrhea: Work-up at last admission was C. difficile negative, stool culture negative, and improved with Cipro and Flagyl treatment for nonspecific proctocolitis noted on CT of abdomen pelvis on 04/16 Continue loperamide 2 mg p.o. at bedtime resolved (6) Generalized weakness: history of profound weakness with infection and stress was supposed to follow up with [place] neurology movement disorder will need a single fiber EMG has been tested for myasthenia gravis and [facility] Eaton in the past, negative order PT/OT not eating enough to give her energy, try to stimulate appetite with Remeron and Marinol will plan for SNF rehab Saturday or later, needs auth (7) GERD (gastroesophageal reflux disease): Continue omeprazole 20 mg daily for now (8) Hypothyroid: Is a diagnosis of hypothyroidism, is not on any thyroid hormone replacement (9) Anxiety: Bipolar 1 disorder/Anxiety with depression- Was noted in the past to be contributing to overall symptomatology Continue lamotrigine 100mg qAM, pregabalin 75mg, quetiapine 100mg HS, Remeron 15mg HS stopped Effexor per psychiatry appreciate their recommendations, they will manage meds, no other changes at this time, monitor response (10) Bipolar 1 disorder: See above (11) Depression: See above severe, not eating well, lacks motivation continue Remeron (12) COPD (chronic obstructive pulmonary disease): Continue as needed duo nebs (13) Hyperlipidemia: Continue rosuvastatin (14) Hypertension: See above Admission and Anticipated Discharge Date Admission Date: May 08, 2021 Subjective patient continues to have a good attitude, continues to eat better she was up in a chair for an hour with lunch no labs today HR is stable on metoprolol still on track for SNF rehab early this week, she is pleased Review of Systems Review of Systems: All systems reviewed & are unremarkable except as noted in Subjective Physical Exam Constitutional: well developed; no acute distress Neck: trachea midline, no thyromegaly Respiratory: normal respiratory effort, lungs clear to auscultation Cardiovascular: Rate/Rhythm: regular rate and + irregularly irregular Heart Sounds: normal S1 and normal S2; no murmur Gastrointestinal (Abdomen): normal bowel sounds, soft, nontender, no hepa tosplenomegaly Musculoskeletal: Head/Neck/Chest: normocephalic, head atraumatic and neck supple Extremities: extremities normal to inspection; no cyanosis, no clubbing and no petechiae Skin: no rashes, warm and dry Neurologic: patellar DTR's 2+ bilat, sensation intact and PERRL, EOMI, accommodation nl, no face palsy, no dysarthria Psychiatric: Orientation: alert, oriented x 3 and cooperative Affect: euthymic affect Lymphatic: no cervical or axillary lymphadenopathy Results & Data Results & Data ([facility]) Vital Signs (Past 12 Hours) Vital Signs Temp Pulse Resp BP Pulse Ox 05/27/21 07:20 36.4 C L 103 H 18 125/78 98 05/27/21 04:41 36.8 C 97 H 18 110/69 94 Medications Administered Current Inpatient Medications Acetaminophen (Acetaminophen 325 Mg Tab) 650 mg PO Q4H PRN PRN Reason: Pain or Fever Stop: 06/08/21 00:56 Last Admin: 05/24/21 19:24 Dose: 650 mg Documented by: Albuterol (Albuterol Hfa 8 Gm Inhaler (Combivent Respimat P&T Subs)) 2 puffs INH Q6H PRN PRN Reason: Shortness Of Breath Stop: 06/08/21 02:27 Apixaban (Apixaban 5 Mg Tablet) 5 mg PO BID [facility] Stop: 06/08/21 00:56 Last Admin: 05/27/21 08:12 Dose: 5 mg Documented by: Aspirin (Aspirin 81 Mg Ectab) 81 mg PO DAILY [facility] Stop: 06/08/21 08:59 Last Admin: 05/27/21 08:12 Dose: 81 mg Documented by: Calcium Carbonate (Calcium Carbonate 500 Mg Chewable Tab) 500 mg PO Q6H PRN PRN Reason: Indigestion Stop: 06/22/21 20:11 Last Admin: 05/23/21 20:38 Dose: 500 mg Documented by: Cyanocobalamin (Cyanocobalamin (Vitamin B-12) 2,500 Mcg Tab.Subl) 5,000 mcg SL DAILY [facility] Stop: 06/08/21 08:59 Last Admin: 05/27/21 08:13 Dose: 5,000 mcg Documented by: Dronabinol (Dronabinol 2.5 Mg Cap) 5 mg PO BID [facility] Stop: 06/21/21 20:59 Last Admin: 05/27/21 08:19 Dose: 5 mg Documented by: Ipratropium [place] (Ipratropium Hfa Inhaler (Combivent Respimat P&T Subs)) 2 puffs INH Q6R PRN PRN Reason: Shortness Of Breath Stop: 06/08/21 02:27 Lamotrigine (Lamotrigine 100 Mg Tab) 100 mg PO QAM [facility] Stop: 06/22/21 08:59 Last Admin: 05/27/21 08:12 Dose: 100 mg Documented by: Loperamide HCl (Loperamide Hcl 2 Mg Cap) 2 mg PO HS [facility] Stop: 06/08/21 20:59 Last Admin: 05/26/21 20:05 Dose: 2 mg Documented by: Metoprolol Tartrate (Metoprolol Tartrate 50 Mg Tab) 50 mg PO BID [facility] Stop: 06/24/21 20:59 Last Admin: 05/27/21 08:11 Dose: 50 mg Documented by: Mirtazapine (Mirtazapine Tab 15 Mg Tab) 15 mg PO HS [facility] Stop: 06/12/21 20:59 Last Admin: 05/26/21 20:06 Dose: 15 mg Documented by: Nitroglycerin (Nitroglycerin Sl 0.4 Mg/Tab Tab) 0.4 mg SL UD PRN PRN Reason: Angina Stop: 06/08/21 00:56 Ondansetron HCl (Ondansetron 4 Mg Od Tab) 4 mg PO Q8H PRN PRN Reason: nausea and vomiting Stop: 06/08/21 00:56 Last Admin: 05/19/21 11:30 Dose: 4 mg Documented by: Ondansetron HCl (Ondansetron Inj 2 Mg/Ml 2 Ml Vial) 4 mg IV Q6H PRN PRN Reason: Nausea And Vomiting Stop: 06/17/21 08:23 Last Admin: 05/23/21 19:47 Dose: 4 mg Documented by: Pantoprazole Sodium (Pantoprazole 40 Mg Tab) 40 mg PO [facility] Stop: 06/18/21 17:44 Last Admin: 05/27/21 08:13 Dose: 40 mg Documented by: Potassium Chloride (Potassium Chloride Crtab 20 Meq Tabcr) 20 meq PO [facility] Stop: 06/13/21 08:59 Last Admin: 05/27/21 08:13 Dose: 20 meq Documented by: Pregabalin (Pregabalin 75 Mg Cap) 75 mg PO [facility] Stop: 06/08/21 20:59 Last Admin: 05/26/21 20:04 Dose: 75 mg Documented by: Quetiapine Fumarate (Quetiapine Fumarate 100 Mg Tablet) 100 mg PO [facility] Stop: 06/22/21 19:59 Last Admin: 05/26/21 20:06 Dose: 100 mg Documented by: Roflumilast (Roflumilast 500 Mcg Tab) 500 mcg PO [facility] Stop: 06/08/21 08:59 Last Admin: 05/27/21 08:12 Dose: 500 mcg Documented by: Rosuvastatin Calcium (Rosuvastatin Calcium 10 Mg Tab) 10 mg PO [facility] Stop: 06/08/21 20:59 Last Admin: 05/26/21 20:06 Dose: 10 mg Documented by: PG Care Time/CCT Total # of Minutes Spent Total Time Spent with Patient: Total time spent is greater than 50% in coordination of care (as documented) at patient's floor/unit and/or counseling patient: Coding Level of Care Code 72453 Subseq Hosp Care Lvl 2 Diagnoses Atrial fibrillation I48.91 Anorexia R63.0 Acute kidney injury N17.9 Hypokalemia E87.6 Diarrhea R19.7 Diarrhea type: unspecified type Generalized weakness R53.1 GERD (gastroesophageal reflux disease) K21.9 Hypothyroid E03.9 Hypothyroidism type: unspecified Anxiety F41.9 Bipolar 1 disorder F31.9 Depression F32.9 COPD (chronic obstructive pulmonary disease) J44.9 COPD type: unspecified COPD Hyperlipidemia E78.5 Hyperlipidemia type: unspecified Hypertension I10 Hypertension type: essential hypertension (1) Diarrhea Diarrhea type: unspecified type Qualified Code(s): R19.7 - Diarrhea, unspecified (2) Hyperlipidemia Hyperlipidemia type: unspecified Qualified Code(s): E78.5 - Hyperlipidemia, unspecified (3) Hypothyroid Hypothyroidism type: unspecified Qualified Code(s): E03.9 - Hypothyroidism, unspecified (4) COPD (chronic obstructive pulmonary disease) COPD type: unspecified COPD Qualified Code(s): J44.9 - Chronic obstructive pulmonary disease, unspecified (5) Hypertension Hypertension type: essential hypertension Qualified Code(s): I10 - Essential (primary) hypertension
[2021-05-27] MEDS: ONDANSETRON INJ 2 MG/ML 2 ML VIAL IV PRN (21:01)
[2021-05-27] MEDS: MIRTAZAPINE TAB 15 MG TAB PO SCH (21:24)
[2021-05-27] MEDS: LOPERAMIDE HCL 2 MG CAP PO SCH (21:24)
[2021-05-27] MEDS: ROSUVASTATIN CALCIUM 10 MG TAB PO SCH (21:29)
[2021-05-27] MEDS: QUEtiapine FUMARATE 100 MG TABLET PO SCH (21:29)
[2021-05-27] MEDS: PREGABALIN 75 MG CAP PO SCH (21:33)
[2021-05-28] MEDS: APIXABAN 5 MG TABLET PO SCH ×2 (09:03→21:38)
[2021-05-28] MEDS: ROFLUMILAST 500 MCG TAB PO SCH (09:04)
[2021-05-28] MEDS: CYANOCOBALAMIN (VITAMIN B-12) 2,500 MCG TAB.SUBL SL SCH (09:04)
[2021-05-28] MEDS: POTASSIUM CHLORIDE CRTAB 20 MEQ TABCR PO SCH (09:04)
[2021-05-28] MEDS: METOPROLOL TARTRATE 50 MG TAB PO SCH ×2 (09:04→21:48)
[2021-05-28] MEDS: ASPIRIN 81 MG ECTAB PO SCH (09:04)
[2021-05-28] MEDS: PANTOprazole 40 MG TAB PO SCH (09:04)
[2021-05-28] MEDS: lamoTRIgine 100 MG TAB PO SCH (09:04)
--- NOTE | 2021-05-28 14:22 | Hospitalist Progress Note ---
Date of Service May 28, 2021 Assessment & Plan (1) Atrial fibrillation: on eliquis for anticoagulation bradycardia on 05/12, could be tachybrady syndrome, HR in 40's, no symptoms EKG showed afib with slow AV conduction digoxin was 1.8, held digoxin on 05/12, HR up to 70-80s reduced metoprolol to 12.5mg BID stopped Digoxin as it might be contributing to anorexia and depression? rates 90-100's on Lopressor 50mg BID does drop to 60's at times, would not increase Lopressor further for now (2) Anorexia: main issue, not eating at all for about three weeks no response to Effexor (stopped) Marinol 5mg BID continue Remeron to 15mg HS thought Digoxin was causing anorexia and depression? stopped this almost 2 weeks ago most likely source is bipolar with depression appreciate psychiatry consult, reduced Seroquel trying to limit medications eating better for a few days, today is not a good day, more depressed and tearful she says she looks at food and just cannot eat she is drinking nutrition shakes but her caloric intake is still not enough (3) Anxiety: Bipolar 1 disorder/Anxiety with depression- Was noted in the past to be contributing to overall symptomatology Continue lamotrigine 100mg qAM, pregabalin 75mg, quetiapine 100mg HS, Remeron 15mg HS stopped Effexor per psychiatry appreciate their recommendations, they will manage meds, no other changes at this time, monitor response main issue is she is not eating, starting to get hopeless and depressed tearful on 05/28, fears she will never get back home since her hip fracture in late February she has been home one days, otherwise in the hospital or SNF rehab she is asking about going home instead of SNF discussed that she would need hired care givers, 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 difficile negative, stool culture negative, and improved with Cipro and Flagyl treatment for nonspecific proctocolitis noted on CT of abdomen pelvis on 04/16 Continue loperamide 2 mg p.o. at bedtime, will stop now resolved, stools are now solid (9) Generalized weakness: history of profound weakness with infection and stress was supposed to follow up with [place] [facility] movement disorder will need a single fiber EMG has been tested for myasthenia gravis and [facility] in the past, negative order PT/OT not eating enough to give her energy, try to stimulate appetite with Remeron and Marinol will plan for SNF rehab Saturday or later, needs auth she is asking about going home as option, I explained that she would need automatic coin machine mechanic hired care givers and home therapy, not sure if family can make this happen (10) GERD (gastroesophageal reflux disease): Continue omeprazole 20 mg daily for now (11) Hypothyroid: Is a diagnosis of hypothyroidism, is not on any thyroid hormone replacement (12) COPD (chronic obstructive pulmonary disease): Continue as needed duo nebs (13) Hyperlipidemia: Continue rosuvastatin (14) Hypertension: See above Admission and Anticipated Discharge Date Admission Date: May 08, 2021 Subjective patient is not having a good day, more depressed, tearful, not hungry today she is drinking her protein shakes had some nausea this morning that has since passed she had an episode of urinary incontinence this morning, upset about that she says she misses her family, she has not been home since she fell and broke her hip in late February she wants to know if I think she could go home I explained that she would need hired care givers because her cannot take care of her but I also understand that seeing her family and being in her own home with food she likes could help her mood and appetite I promised I would come up and speak with her and her later Review of Systems Review of Systems: All systems reviewed & are unremarkable except as noted in Subjective Constitutional: + fatigue, + weakness and + anorexia Psychiatric: + depression, + hopelessness and + anxiety Physical Exam Constitutional: well developed; no acute distress Neck: trachea midline, no thyromegaly Respiratory: normal respiratory effort, lungs clear to auscultation Cardiovascular: Rate/Rhythm: regular rate and + irregularly irregular Heart Sounds: normal S1 and normal S2; no murmur Gastrointestinal (Abdomen): normal bowel sounds, soft, nontender, no hepatosplenomegaly Musculoskeletal: Head/Neck/Chest: normocephalic, head atraumatic and neck supple Extremities: extremities normal to inspection; no cyanosis, no clubbing and no petechiae Skin: no rashes, warm and dry Neurologic: patellar DTR's 2+ bilat, sensation intact and PERRL, EOMI, accommodation nl, no face palsy, no dysarthria Psychiatric: Orientation: alert, oriented x 3 and cooperative Affect: + tearful affect Mood: + depressed mood Lymphatic: no cervical or axillary lymphadenopathy Results & Data Results & Data ([facility]) Vital Signs (Past 12 Hours) Vital Signs Temp Pulse Resp BP Pulse Ox 05/28/21 08:00 36.7 C 95 H 18 125/83 100 05/28/21 04:05 36.5 C 87 16 105/69 99 Medications Administered Current Inpatient Medications Acetaminophen (Acetaminophen 325 Mg Tab) 650 mg PO Q4H PRN PRN Reason: Pain or Fever Stop: 06/08/21 00:56 Last Admin: 05/24/21 19:24 Dose: 650 mg Documented by: Albuterol (Albuterol Hfa 8 Gm Inhaler (Combivent Respimat P&T Subs)) 2 puffs INH Q6H PRN PRN Reason: Shortness Of Breath Stop: 06/08/21 02:27 Apixaban (Apixaban 5 Mg Tablet) 5 mg PO BID [facility] Stop: 06/08/21 00:56 Last Admin: 05/28/21 09:03 Dose: 5 mg Documented by: Aspirin (Aspirin 81 Mg Ectab) 81 mg PO DAILY [facility] Stop: 06/08/21 08:59 Last Admin: 05/28/21 09:04 Dose: 81 mg Documented by: Calcium Carbonate (Calcium Carbonate 500 Mg Chewable Tab) 500 mg PO Q6H PRN PRN Reason: Indigestion Stop: 06/22/21 20:11 Last Admin: 05/23/21 20:38 Dose: 500 mg Documented by: Cyanocobalamin (Cyanocobalamin (Vitamin B-12) 2,500 Mcg Tab.Subl) 5,000 mcg SL DAILY [facility] Stop: 06/08/21 08:59 Last Admin: 05/28/21 09:04 Dose: 5,000 mcg Documented by: Dronabinol (Dronabinol 2.5 Mg Cap) 5 mg PO BID [facility] Stop: 06/21/21 20:59 Last Admin: 05/28/21 09:10 Dose: 5 mg Documented by: Ipratropium [place] (Ipratropium Hfa Inhaler (Combivent Respimat P&T Subs)) 2 puffs INH Q6R PRN PRN Reason: Shortness Of Breath Stop: 06/08/21 02:27 Lamotrigine (Lamotrigine 100 Mg Tab) 100 mg PO [facility] Stop: 06/22/21 08:59 Last Admin: 05/28/21 09:04 Dose: 100 mg Documented by: Loperamide HCl (Loperamide Hcl 2 Mg Cap) 2 mg PO [facility] Stop: 06/08/21 20:59 Last Admin: 05/27/21 21:24 Dose: Not Given Documented by: Metoprolol Tartrate (Metoprolol Tartrate 50 Mg Tab) 50 mg PO BID [facility] Stop: 06/24/21 20:59 Last Admin: 05/28/21 09:04 Dose: 50 mg Documented by: Mirtazapine (Mirtazapine Tab 15 Mg Tab) 15 mg PO [facility] Stop: 06/12/21 20:59 Last Admin: 05/27/21 21:24 Dose: 15 mg Documented by: Nitroglycerin (Nitroglycerin Sl 0.4 Mg/Tab Tab) 0.4 mg SL UD PRN PRN Reason: Angina Stop: 06/08/21 00:56 Ondansetron HCl (Ondansetron 4 Mg Od Tab) 4 mg PO Q8H PRN PRN Reason: nausea and vomiting Stop: 06/08/21 00:56 Last Admin: 05/19/21 11:30 Dose: 4 mg Documented by: Ondansetron HCl (Ondansetron Inj 2 Mg/Ml 2 Ml Vial) 4 mg IV Q6H PRN PRN Reason: Nausea And Vomiting Stop: 06/17/21 08:23 Last Admin: 05/27/21 21:01 Dose: 4 mg Documented by: Pantoprazole Sodium (Pantoprazole 40 Mg Tab) 40 mg PO [facility] Stop: 06/18/21 17:44 Last Admin: 05/28/21 09:04 Dose: 40 mg Documented by: Potassium Chloride (Potassium Chloride Crtab 20 Meq Tabcr) [facility] [place] Stop: 06/13/21 08:59 Last Admin: 05/28/21 09:04 Dose: 20 meq Documented by: Pregabalin (Pregabalin 75 Mg Cap) 75 mg PO [facility] Stop: 06/08/21 20:59 Last Admin: 05/27/21 21:33 Dose: 75 mg Documented by: Quetiapine Fumarate (Quetiapine Fumarate 100 Mg Tablet) 100 mg PO [facility] Stop: 06/22/21 19:59 Last Admin: 05/27/21 21:29 Dose: 100 mg Documented by: Roflumilast (Roflumilast 500 Mcg Tab) 500 mcg PO [facility] Stop: 06/08/21 08:59 Last Admin: 05/28/21 09:04 Dose: 500 mcg Documented by: Rosuvastatin Calcium (Rosuvastatin Calcium 10 Mg Tab) 10 mg PO [facility] Stop: 06/08/21 20:59 Last Admin: 05/27/21 21:29 Dose: 10 mg Documented by: PG Care Time/CCT Total # of Minutes Spent Total Time Spent: 32 Total Time Spent with Patient: Total time spent is greater than 50% in coordination of care (as documented) at patient's floor/unit and/or counseling patient: Coding Level of Care Code 24172 Subseq Hosp Care Lvl 3 (25 - SIGNIFICANT, SEPARATELY IDENTIFIABLE ) Diagnoses Atrial fibrillation I48.91 Anorexia R63.0 Anxiety F41.9 Depression F32.9 Bipolar 1 disorder F31.9 Acute kidney injury N17.9 Hypokalemia E87.6 Diarrhea R19.7 Diarrhea type: unspecified type Generalized weakness R53.1 GERD (gastroesophageal reflux disease) K21.9 Hypothyroid E03.9 Hypothyroidism type: unspecified COPD (chronic obstructive pulmonary disease) J44.9 COPD type: unspecified COPD Hyperlipidemia E78.5 Hyperlipidemia type: unspecified Hypertension I10 Hypertension type: essential hypertension (1) Diarrhea Diarrhea type: unspecified type Qualified Code(s): R19.7 - Diarrhea, unspecified (2) Hypothyroid Hypothyroidism type: unspecified Qualified Code(s): E03.9 - Hypothyroidism, unspecified (3) COPD (chronic obstructive pulmonary disease) COPD type: unspecified COPD Qualified Code(s): J44.9 - Chronic obstructive pulmonary disease, unspecified (4) Hyperlipidemia Hyperlipidemia type: unspecified Qualified Code(s): E78.5 - Hyperlipidemia, unspecified (5) Hypertension Hypertension type: essential hypertension Qualified Code(s): I10 - Essential (primary) hypertension
[2021-05-28] MEDS: PREGABALIN 75 MG CAP PO SCH (21:38)
[2021-05-28] MEDS: QUEtiapine FUMARATE 100 MG TABLET PO SCH (21:39)
[2021-05-28] MEDS: ROSUVASTATIN CALCIUM 10 MG TAB PO SCH (21:39)
[2021-05-28] MEDS: MIRTAZAPINE TAB 15 MG TAB PO SCH (21:39)
[2021-05-29] MEDS: APIXABAN 5 MG TABLET PO SCH ×2 (09:06→21:39)
[2021-05-29] MEDS: METOPROLOL TARTRATE 50 MG TAB PO SCH ×2 (09:06→21:40)
[2021-05-29] MEDS: lamoTRIgine 100 MG TAB PO SCH (09:06)
[2021-05-29] MEDS: ASPIRIN 81 MG ECTAB PO SCH (09:06)
[2021-05-29] MEDS: CYANOCOBALAMIN (VITAMIN B-12) 2,500 MCG TAB.SUBL SL SCH (09:06)
[2021-05-29] MEDS: POTASSIUM CHLORIDE CRTAB 20 MEQ TABCR PO SCH (09:07)
[2021-05-29] MEDS: ROFLUMILAST 500 MCG TAB PO SCH (09:07)
[2021-05-29] MEDS: PANTOprazole 40 MG TAB PO SCH (09:07)
--- NOTE | 2021-05-29 18:36 | Hospitalist Progress Note ---
Date of Service May 29, 2021 Assessment & Plan (1) Anorexia: main issue, not eating at all for about three weeks no response to Effexor (stopped) Marinol 5mg BID continue Remeron to 15mg HS thought Digoxin was causing anorexia and depression? stopped this almost 2 weeks ago most likely source is bipolar with depression appreciate psychiatry consult, reduced Seroquel trying to limit medications eating better for a few days, but now mostly proteins hakes and she says she looks at food and just cannot eat she is drinking nutrition shakes but her caloric intake is still not enough seems to be doing ok for now, hoping changes in Psych meds help seen by GI and not thought to be a GI related issue (2) Atrial fibrillation: on eliquis for anticoagulation bradycardia on 05/12, could be tachybrady syndrome, HR in 40's, no symptoms EKG showed afib with slow AV conduction digoxin was 1.8, held digoxin on 05/12, HR up to 70-80s reduced metoprolol to 12.5mg BID stopped Digoxin as it might be contributing to anorexia and depression? rates 90-100's on Lopressor 50mg BID does drop to 60's at times, would not increase Lopressor further for now (3) Anxiety: Bipolar 1 disorder/Anxiety with depression- Was noted in the past to be contributing to overall symptomatology Continue lamotrigine 100mg qAM, pregabalin 75mg, quetiapine 100mg HS, Remeron 15mg HS stopped Effexor per psychiatry appreciate their recommendations, they will manage meds, no other changes at this time, monitor response main issue is she is not eating, starting to get hopeless and depressed tearful on 05/28, fears she will never get back home since her hip fracture in late February she has been home one days, otherwise in the hospital or SNF rehab f/u with Psychiatry as outpt (4) Depression: See above severe, not eating well, lacks motivation continue Remeron (5) Bipolar 1 disorder: See above (6) Acute kidney injury: Creatinine 1.46 upon admission Cr improved to baseline after IV fluids hypernatremia resolved BMP on 05/26 with normal Cr and electrolytes (7) Hypokalemia: K normal on 05/26 (8) Diarrhea: Work-up at last admission was C. difficile negative, stool culture negative, and improved with Cipro and Flagyl treatment for nonspecific proctocolitis noted on CT of abdomen pelvis on 04/16 received loperamide 2 mg p.o. at bedtime, have since stopped resolved, stools are now solid (9) Generalized weakness: history of profound weakness with infection and stress was supposed to follow up with [place] neurology movement disorder will need a single fiber EMG has been tested for myasthenia gravis and Lambert Eaton in the past, negative order PT/OT not eating enough to give her energy, try to stimulate appetite with Remeron and Marinol awaiting placement at rehab (10) GERD (gastroesophageal reflux disease): Continue omeprazole 20 mg daily for now (11) Hypothyroid: Is a diagnosis of hypothyroidism, is not on any thyroid hormone replacement TSH here normal (12) COPD (chronic obstructive pulmonary disease): Continue as needed duo nebs (13) Hyperlipidemia: Continue rosuvastatin (14) Hypertension: BPs normal continue metoprolol Dispo-continued stay, awaiting approval for rehab Admission and Anticipated Discharge Date Admission Date: May 08, 2021 Subjective Pt feels better today, was up with PT and OT, feels off balance. Is drinking her protein shakes but not much else. Says she wants to eat but then looking at food makes her not want to eat it. No pain anywhere, no chest pain or SOB Review of Systems Review of Systems: All systems reviewed & are unremarkable except as noted in HPI & below Physical Exam Constitutional: WD/WN, vitals as above Eyes: + anicteric sclerae Neck: trachea midline, no thyromegaly Respiratory: normal respiratory effort, lungs clear to auscultation Cardiovascular: RRR, no murmur, no edema Chest (Breasts): Chest: normal inspection of chest Gastrointestinal (Abdomen): normal bowel sounds, soft, nontender, no hepatosplenomegaly Musculoskeletal: Extremities: extremities normal to inspection; no cyanosis and no clubbing Skin: no rashes, warm and dry Neurologic: moves all extremities and awake; no focal motor deficits Motor/Sensory: + tremor (of the jaw) Psychiatric: A+Ox3, euthymic affect Lymphatic: no lymphedema Results & Data Results & Data ([facility]) Vital Signs (Past 12 Hours) Vital Signs Temp Pulse Resp BP Pulse Ox 05/29/21 16:11 36.8 C 97 H 16 92/55 L 93 05/29/21 07:34 36.4 C L 111 H 16 123/73 99 PG Care Time/CCT Total # of Minutes Spent Total Time Spent with Patient: Total time spent is greater than 50% in coordination of care (as documented) at patient's floor/unit and/or counseling patient: Coding Level of Care Code 74387 Subseq Hosp Care Lvl 1 Diagnoses Anorexia R63.0 Atrial fibrillation I48.91 Anxiety F41.9 Depression F32.9 Bipolar 1 disorder F31.9 Acute kidney injury N17.9 Hypokalemia E87.6 Diarrhea R19.7 Diarrhea type: unspecified type Generalized weakness R53.1 GERD (gastroesophageal reflux disease) K21.9 Hypothyroid E03.9 Hypothyroidism type: unspecified COPD (chronic obstructive pulmonary disease) J44.9 COPD type: unspecified COPD Hyperlipidemia E78.5 Hyperlipidemia type: unspecified Hypertension I10 Hypertension type: essential hypertension (1) Diarrhea Diarrhea type: unspecified type Qualified Code(s): R19.7 - Diarrhea, unspecified (2) Hypothyroid Hypothyroidism type: unspecified Qualified Code(s): E03.9 - Hypothyroidism, unspecified (3) COPD (chronic obstructive pulmonary disease) COPD type: unspecified COPD Qualified Code(s): J44.9 - Chronic obstructive pulmonary disease, unspecified (4) Hyperlipidemia Hyperlipidemia type: unspecified Qualified Code(s): E78.5 - Hyperlipidemia, unspecified (5) Hypertension Hypertension type: essential hypertension Qualified Code(s): I10 - Essential (primary) hypertension
[2021-05-29] MEDS: MIRTAZAPINE TAB 15 MG TAB PO SCH (21:40)
[2021-05-29] MEDS: QUEtiapine FUMARATE 100 MG TABLET PO SCH (21:41)
[2021-05-29] MEDS: ROSUVASTATIN CALCIUM 10 MG TAB PO SCH (21:42)
[2021-05-29] MEDS: PREGABALIN 75 MG CAP PO SCH (21:46)
[2021-05-29] MEDS ORDERED: SODIUM CHLORIDE 0.9% 1000ML 500 ML IV ONE (23:48)
[2021-05-30] MEDS: ONDANSETRON INJ 2 MG/ML 2 ML VIAL IV PRN ×2 (00:15→19:55)
[2021-05-30 06:50] LABS: Basophils # (auto) 0.03 K/uL (0-0.2); Basophils % (auto) 0.6 %; Eosinophils # (auto) 0.31 K/uL (0-0.5); Eosinophils % (auto) 5.8 %; Hematocrit (blood only) 27.2 % (37-47); Hemoglobin 8.4 g/dL (12.0-16.0); Immature Granulocytes # (auto) 0.06 K/uL (0.00-0.02); Immature Granulocytes % (auto) 1.1 %; Lymphocytes % (auto) 39.4 %; Mean Corpuscular Hemoglobin 30.4 pg (25-34); Mean Corpuscular Hgb Conc 30.9 g/dL (32-36); Mean Corpuscular Volume 98.6 fL (80-100); Mean Platelet Volume 9.4 fL (7.4-10.4); Monocytes # (auto) 0.77 K/uL (0.11-0.59); Monocytes % (auto) 14.4 %; Neutrophils # (auto) 2.06 K/uL (1.4-6.5); Neutrophils % (auto) 38.7 %; Platelet Count 327 K/uL (130-400); RDW Coefficient of Variation 15.9 % (11.5-14.5); RDW Standard Deviation 56.4 fL (36.4-46.3); Red Blood Count 2.76 M/uL (4.2-5.4); White Blood Count 5.33 K/uL (4.8-10.8)
[2021-05-30 07:33] LABS: Albumin Globulin Ratio 0.5 (0.9-2); Bilirubin,Total 0.4 mg/dl (0.2-1); Creatinine Clr Calc Pharmacy 35.9 ml/min; Est GFR (African American) 57.8 ml/min; Est GFR (Non-African American) 49.9 ml/min; Globulin 3.8 gm/dl (2.5-4.0); Magnesium 2.2 mg/dl (1.8-2.4); Phosphorus 4.2 mg/dl (2.5-4.9); Potassium 4.5 mmol/L (3.5-5.1); Total Protein 5.8 gm/dl (6.4-8.2)
[2021-05-30] MEDS: ASPIRIN 81 MG ECTAB PO SCH (07:48)
[2021-05-30] MEDS: APIXABAN 5 MG TABLET PO SCH ×2 (07:48→21:37)
[2021-05-30] MEDS: CYANOCOBALAMIN (VITAMIN B-12) 2,500 MCG TAB.SUBL SL SCH (07:49)
[2021-05-30] MEDS: PANTOprazole 40 MG TAB PO SCH (07:49)
[2021-05-30] MEDS: METOPROLOL TARTRATE 50 MG TAB PO SCH ×2 (07:49→21:49)
[2021-05-30] MEDS: ROFLUMILAST 500 MCG TAB PO SCH (07:50)
[2021-05-30] MEDS: POTASSIUM CHLORIDE CRTAB 20 MEQ TABCR PO SCH (07:50)
[2021-05-30] MEDS: lamoTRIgine 100 MG TAB PO SCH (09:56)
[2021-05-30 10:29] LABS: Iron 43 mcg/dl (35-150); Total Iron Binding Capacity 208 mcg/dl (250-450); Transferrin 178 mg/dl (200-360); Transferrin Percent Saturation 17 % (15-50)
[2021-05-30] MEDS ORDERED: METOPROLOL TARTRATE 25 MG TAB PO STA (16:43)
--- NOTE | 2021-05-30 16:45 | Hospitalist Progress Note ---
Date of Service May 30, 2021 Assessment & Plan (1) Anorexia: main issue, not eating at all for about three weeks prior to admission no response to Effexor (stopped) Is consuming 3 protein shakes a day but at most 30% of her meals Continue now on Marinol 5mg BID continue Remeron 15mg HS There was a thought that perhaps digoxin was causing anorexia and depression and this was discontinued over 2 weeks ago Was seen by gastroenterology and did not feel this was a GI related issue Anorexia most likely cause is secondary to bipolar with depression appreciate psychiatry consult, reduced Seroquel trying to limit medications -Add on multivitamin, thiamine, folic acid as below for folate deficiency, as well as ferrous gluconate for iron deficiency (2) Atrial fibrillation: Had some tachycardia on 05/30 as her metoprolol in the morning was held for lower blood pressures Had bradycardia on 05/12, could be tachybrady syndrome, HR in 40's, no symptoms EKG showed afib with slow AV conduction digoxin was 1.8, discontinued digoxin on 05/12, HR up to 70-80s rates 90-100's on Lopressor 50mg BID does drop to 60's at times, would not increase Lopressor further for now -Give a one-time dose of metoprolol 25 mg this afternoon for tachycardia and then resume 50 mg twice daily this evening (3) Anxiety: Bipolar 1 disorder/Anxiety with depression- Was noted in the past to be contributing to overall symptomatology Continue lamotrigine 100mg qAM, pregabalin 75mg, quetiapine 100mg HS, Remeron 15mg HS stopped Effexor per psychiatry appreciate their recommendations, they will manage meds, no other changes at this time, monitor response main issue is she is not eating, starting to get hopeless and depressed fears she will never get back home since her hip fracture in late February she has been home one days, otherwise in the hospital or SNF rehab f/u with Psychiatry as outpt (4) Depression: See above severe, not eating well, lacks motivation continue Remeron (5) Bipolar 1 disorder: See above (6) Acute kidney injury: Creatinine 1.46 upon admission Cr improved to baseline after IV fluids hypernatremia resolved (7) Hypokalemia: Potassium normal Reduce potassium chloride dose down to 10 mEq daily (8) Diarrhea: Work-up at last admission was C. difficile negative, stool culture negative, and improved with Cipro and Flagyl treatment for nonspecific proctocolitis noted on CT of abdomen pelvis on 04/16 received loperamide 2 mg p.o. at bedtime, have since stopped resolved, stools are now solid (9) Generalized weakness: history of profound weakness with infection and stress was supposed to follow up with [place] neurology movement disorder will need a single fiber EMG has been tested for myasthenia gravis and Lambert Eaton in the past, negative order PT[facility] not eating enough to give her energy, try to stimulate appetite with Remeron and Marinol awaiting placement at rehab (10) GERD (gastroesophageal reflux disease): Continue omeprazole 20 mg daily (11) Hypothyroid: Is a diagnosis of hypothyroidism, is not on any thyroid hormone replacement TSH here normal (12) COPD (chronic obstructive pulmonary disease): Continue as needed duo nebs No acute issues Uses 2 L nasal cannula at bedtime (13) Hyperlipidemia: Continue rosuvastatin (14) Hypertension: BPs normal continue metoprolol (15) Folate deficiency anemia: Hemoglobin trending downward throughout her stay and now is down to 8.4 from baseline 9-10. Macrocytic Folate level low at 4.9 Transferrin saturation low at 17% but iron studies more consistent with anemia of chronic disease B12 level was greater than 2000 just 6 weeks ago and was not rechecked this admission -Continue B12 supplement -Add on folic acid 1 mg p.o. once daily Add on ferrous gluconate 325 mg once daily (16) Iron (Fe) deficiency anemia: As above (17) DVT prophylaxis: [facility]-continued stay, awaiting approval for rehab-[facility] was just approved today and now awaiting to [facility] and then will need insurance authorization Admission and Anticipated Discharge Date Admission Date: May 08, 2021 Subjective Patient reports feeling like she is having a very good day. Still does not have as much of an appetite but is drinking all 3 of her protein shakes daily. She felt stronger and was able to walk the halls more today with physical therapy She does feel quite anxious today and her is visiting at the bedside when I saw her. Review of Systems Review of Systems: All systems reviewed & are unremarkable except as noted in HPI & below Physical Exam Constitutional: WD/WN, vitals as above Eyes: + anicteric sclerae Neck: trachea midline, no thyromegaly Respiratory: normal respiratory effort, lungs clear to auscultation Cardiovascular: Rate/Rhythm: + tachycardic and + irregularly irregular Extremities: no edema Chest (Breasts): Chest: normal inspection of chest Gastrointestinal (Abdomen): normal bowel sounds, soft, nontender, no hepatosplenomegaly Musculoskeletal: Extremities: extremities normal to inspection; no cyanosis and no clubbing Skin: no rashes, warm and dry Neurologic: moves all extremities and awake; no focal motor deficits Motor/Sensory: + tremor (of the jaw) Psychiatric: A+Ox3, euthymic affect Lymphatic: no lymphedema Results & Data Results & Data ([facility]) Vital Signs (Past 12 Hours) Vital Signs Temp Pulse Resp BP Pulse Ox 05/30/21 15:26 36.6 C 80 16 123/72 95 05/30/21 07:38 36.5 C 94 H 16 91/57 L 96 Laboratory Results 05/30/21 05/30/21 05/30/21 Range/Units 09:35 09:35 06:27 WBC (4.8-10.8) K/uL RBC (4.2-5.4) M/uL Hgb (12.0-16.0) g/dL Hct (37-47) % MCV (80-100) fL MCH (25-34) pg MCHC (32-36) g/dL RDW Std Deviation (36.4-46.3) fL RDW Coeff of Gino (11.5-14.5) % Plt Count (130-400) K/uL MPV (7.4-10.4) fL Immature Gran % (Auto) % Neut % (Auto) % Lymph % (Auto) % [place] % (Auto) % Eos % (Auto) % Baso % (Auto) % Neut # (Auto) (1.4-6.5) K/uL Lymph # (Auto) (1.2-3.4) K/uL [place] # (Auto) (0.11-0.59) K/uL Eos # (Auto) (0-0.5) K/uL Baso # (Auto) (0-0.2) K/uL Immature Gran # (Auto) (0.00-0.02) K/uL Sodium 141 (136-145) mmol/L Potassium 4.5 (3.5-5.1) mmol/L Chloride 108 H (98-107) mmol/L Carbon Dioxide 30 (21-32) mmol/L Anion Gap 3.0 (3-11) BUN 11 (7-18) mg/dl Creatinine 1.06 (0.6-1.2) mg/dl Est Cr Clr Drug Dosing 35.9 ml/min Est GFR ( Amer) 57.8 ml/min Est GFR (Non-Af Amer) 49.9 ml/min BUN/Creatinine Ratio 10.0 (10-20) Glucose 88 (70-99) mg/dl Calcium 9.0 (8.5-10.1) mg/dl Phosphorus 4.2 (2.5-4.9) mg/dl Magnesium 2.2 (1.8-2.4) mg/dl Iron 43 (35-150) mcg/dl TIBC 208 L (250-450) mcg/dl Transferrin 178 L (200-360) mg/dl Transferrin % Sat 17 (15-50) % Total Bilirubin 0.4 (0.2-1) mg/dl AST 24 (15-37) U/L ALT 13 (12-78) U/L Alkaline Phosphatase 77 (45-117) U/L Total Protein 5.8 L (6.4-8.2) gm/dl Albumin 2.0 L (3.4-5.0) gm/dl Globulin 3.8 (2.5-4.0) gm/dl Albumin/Globulin Ratio 0.5 L (0.9-2) Folate 4.90 L (>5.38) ng/ml 05/30/ Range/Units 06:27 WBC 5.33 (4.8-10.8) K/uL RBC 2.76 L (4.2-5.4) M/uL Hgb 8.4 L (12.0-16.0) g/dL Hct 27.2 L (37-47) % MCV 98.6 (80-100) fL MCH 30.4 (25-34) pg MCHC 30.9 L (32-36) g/dL RDW Std Deviation 56.4 H (36.4-46.3) fL RDW Coeff of Gino 15.9 H (11.5-14.5) % Plt Count 327 (130-400) K/uL MPV 9.4 (7.4-10.4) fL Immature Gran % (Auto) 1.1 % Neut % (Auto) 38.7 % Lymph % (Auto) 39.4 % [place] % (Auto) 14.4 % Eos % (Auto) 5.8 % Baso % (Auto) 0.6 % Neut # (Auto) 2.06 (1.4-6.5) K/uL Lymph # (Auto) 2.10 (1.2-3.4) K/uL [place] # (Auto) 0.77 H (0.11-0.59) K/uL Eos # (Auto) 0.31 (0-0.5) K/uL Baso # (Auto) 0.03 (0-0.2) K/uL Immature Gran # (Auto) 0.06 H (0.00-0.02) K/uL Sodium (136-145) mmol/L Potassium (3.5-5.1) mmol/L Chloride (98-107) mmol/L Carbon Dioxide (21-32) mmol/L Anion Gap (3-11) BUN (7-18) mg/dl Creatinine (0.6-1.2) mg/dl Est Cr Clr Drug Dosing ml/min Est GFR ( Amer) ml/min Est GFR (Non-Af Amer) ml/min BUN/Creatinine Ratio (10-20) Glucose (70-99) mg/dl Calcium (8.5-10.1) mg/dl Phosphorus (2.5-4.9) mg/dl Magnesium (1.8-2.4) mg/dl Iron (35-150) mcg/dl TIBC (250-450) mcg/dl Transferrin (200-360) mg/dl Transferrin % Sat (15-50) % Total Bilirubin (0.2-1) mg/dl AST (15-37) U/L ALT (12-78) U/L Alkaline Phosphatase (45-117) U/L Total Protein (6.4-8.2) gm/dl Albumin (3.4-5.0) gm/dl Globulin (2.5-4.0) gm/dl Albumin/Globulin Ratio (0.9-2) Folate (>5.38) ng/ml PG Care Time/CCT Total # of Minutes Spent Total Time Spent with Patient: Total time spent is greater than 50% in coordination of care (as documented) at patient's floor/unit and/or counseling patient: Coding Level of Care Code 40464 Subseq Hosp Care Lvl 3 Diagnoses Anorexia R63.0 Atrial fibrillation I48.91 Anxiety F41.9 Depression F32.9 Bipolar 1 disorder F31.9 Acute kidney injury N17.9 Hypokalemia E87.6 Diarrhea R19.7 Diarrhea type: unspecified type Generalized weakness R53.1 GERD (gastroesophageal reflux disease) K21.9 Hypothyroid E03.9 Hypothyroidism type: unspecified COPD (chronic obstructive pulmonary disease) J44.9 COPD type: unspecified COPD Hyperlipidemia E78.5 Hyperlipidemia type: unspecified Hypertension I10 Hypertension type: essential hypertension Folate deficiency anemia D52.9 Iron (Fe) deficiency anemia D50.9 Iron deficiency anemia type: unspecified iron deficiency DVT prophylaxis Z29.9 (1) Diarrhea Diarrhea type: unspecified type Qualified Code(s): R19.7 - Diarrhea, unspecified (2) Hyperlipidemia Hyperlipidemia type: unspecified Qualified Code(s): E78.5 - Hyperlipidemia, unspecified (3) Hypothyroid Hypothyroidism type: unspecified Qualified Code(s): E03.9 - Hypothyroidism, unspecified (4) Iron (Fe) deficiency anemia Iron deficiency anemia type: unspecified iron deficiency Qualified Code(s): D50.9 - Iron deficiency anemia, unspecified (5) COPD (chronic obstructive pulmonary disease) COPD type: unspecified COPD Qualified Code(s): J44.9 - Chronic obstructive pulmonary disease, unspecified (6) Hypertension Hypertension type: essential hypertension Qualified Code(s): I10 - Essential (primary) hypertension
[2021-05-30] MEDS: THIAMINE HCL 100 MG TAB PO SCH (17:19)
[2021-05-30] MEDS: FOLIC ACID 1 MG TAB PO SCH (17:20)
[2021-05-30] MEDS: MIRTAZAPINE TAB 15 MG TAB PO SCH (21:39)
[2021-05-30] MEDS: PREGABALIN 75 MG CAP PO SCH (21:39)
[2021-05-30] MEDS: QUEtiapine FUMARATE 100 MG TABLET PO SCH (21:40)
[2021-05-30] MEDS: ROSUVASTATIN CALCIUM 10 MG TAB PO SCH (21:40)
[2021-05-30] MEDS ORDERED: SODIUM CHLORIDE 0.9% 1000ML 500 ML IV ONE (23:19)
[2021-05-31] MEDS: ASPIRIN 81 MG ECTAB PO SCH (08:32)
[2021-05-31] MEDS: CYANOCOBALAMIN (VITAMIN B-12) 2,500 MCG TAB.SUBL SL SCH (08:33)
[2021-05-31] MEDS: APIXABAN 5 MG TABLET PO SCH (08:33)
[2021-05-31] MEDS: FOLIC ACID 1 MG TAB PO SCH (08:34)
[2021-05-31] MEDS: lamoTRIgine 100 MG TAB PO SCH (08:35)
[2021-05-31] MEDS: ROFLUMILAST 500 MCG TAB PO SCH (08:36)
[2021-05-31] MEDS: THIAMINE HCL 100 MG TAB PO SCH (08:36)
[2021-05-31] MEDS: PANTOprazole 40 MG TAB PO SCH (08:36)
[2021-05-31] MEDS ORDERED: CEROVITE ADV FORMULA TAB PO SCH (09:00)
[2021-05-31] MEDS ORDERED: FERROUS GLUCONATE 324 MG TAB PO SCH (09:00)
[2021-05-31] MEDS ORDERED: POTASSIUM CHLORIDE 10 MEQ TABCR PO SCH (09:00)
[2021-05-31] MEDS: METOPROLOL TARTRATE 25 MG TAB PO SCH ×2 (09:29→13:27)
--- NOTE | 2021-05-31 17:05 | Discharge Summary ---
Date of Service May 31, 2021 Admission HPI Per Admitting Provider The patient is a 81-year-old female with a past medical history including GERD, closed left hip fracture, B12 deficiency, iron deficiency, hypothyroidism, anxiety, myasthenia gravis, vitamin D deficiency, COPD, rotator cuff tear, hypertension, depression, bipolar 1 disorder, sleep apnea and hyperlipidemia. She presents with the above symptoms, but is not able to articulate well her current symptoms. Principal Diagnosis Anorexia, hypokalemia, dehydration Discharge Exam Constitutional WD/WN, vitals as above Eyes + anicteric sclerae Neck trachea midline, no thyromegaly Respiratory normal respiratory effort, lungs clear to auscultation Cardiovascular Rate/Rhythm: regular rate and + irregularly irregular Extremities: no edema Chest (Breasts) Chest: normal inspection of chest Gastrointestinal (Abdomen) normal bowel sounds, soft, nontender, no hepatosplenomegaly Musculoskeletal Extremities: extremities normal to inspection; no cyanosis and no clubbing Skin no rashes, warm and dry Neurologic moves all extremities and awake; no focal motor deficits Motor/Sensory: + tremor (of the jaw) Psychiatric A+Ox3, euthymic affect Lymphatic no lymphedema Discharge Data Allergies Allergy/AdvReac Type Severity Reaction Status Date / Time metoclopramide Allergy Intermediate ESSENTIAL Verified 05/08/21 19:53 TREMORS clopidogrel Allergy Mild HIVES Verified 05/08/21 19:53 diazepam Allergy Mild DEPRESSION Verified 05/08/21 19:53 diltiazem Allergy Mild Light Verified 05/08/21 19:53 headed erythromycin base Allergy Mild EES, TAKES Verified 05/08/21 19:53 Z-PACKS W/O RXN gabapentin Allergy Mild States Verified 05/08/21 19:53 hands catch fire latex Allergy Mild rips skin Verified 05/08/21 19:53 off lisinopril Allergy Mild COUGH Verified 05/08/21 19:53 losartan Allergy Mild HIVES Verified 05/08/21 19:53 micafungin Allergy Mild rash Verified 05/08/21 19:53 oxycodone Allergy Mild INC. Verified 05/08/21 19:53 DEPRESSION Penicillins Allergy Mild Diarrhea Verified 05/08/21 19:53 promethazine Allergy Mild TROUBLE Verified 05/08/21 19:53 FOCUSING SPEAKING AT HIGHER DOSES Sulfa (Sulfonamide Allergy Mild SKIN Verified 05/08/21 19:53 Antibiotics) BECOMES PHOTOSENSITIVE AND BECOMES RED bupropion Allergy Unknown unknown Verified 05/08/21 19:53 dicyclomine Allergy Unknown Unknown Verified 05/08/21 19:53 potassium chloride Allergy Unknown Unknown Verified 05/08/21 19:53 sucralfate Allergy Unknown Unknown Verified 05/08/21 19:53 [id number]-Mno Reductase AdvReac Intermediate Diarrhea Verified 05/08/21 19:53 Inhibitor amoxicillin AdvReac Mild DIARRHEA Verified 05/08/21 19:53 clavulanic acid AdvReac Mild DIARRHEA Verified 05/08/21 19:53 hydrocodone AdvReac Mild "dont like Verified 05/08/21 19:53 how it makes me feel" Consultations 05/08/21 22:26 ED Decision to Admit Stat 05/12/21 12:36 Consult Cardiology Routine 05/14/21 16:21 Consult Psychiatry Routine 05/18/21 13:36 Consult Palliative Care Routine 05/19/21 12:50 Consult Gastroenterology Routine Ordered Studies 05/08/21 20:02 CT head/brain wo con Stat 05/19/21 17:26 CT angio abdomen w con Stat Hospital Course (1) Anorexia: main issue, not eating at all for about three weeks prior to admission no response to Effexor (stopped) Is consuming 3 protein shakes a day but at most 30% of her meals Continue now on Marinol 5mg BID continue Remeron 15mg HS There was a thought that perhaps digoxin was causing anorexia and depression and this was discontinued over 2 weeks ago Was seen by gastroenterology and did not feel this was a GI related issue Anorexia most likely cause is secondary to bipolar with depression appreciate psychiatry consult, reduced Seroquel trying to limit medications -Added on multivitamin, thiamine, folic acid as below for folate deficiency, as well as ferrous gluconate for iron deficiency (2) Atrial fibrillation: Had some tachycardia on 05/30 as her metoprolol in the morning was held for lower blood pressures Had bradycardia on 05/12, could be tachybrady syndrome, HR in 40's, no symptoms EKG showed afib with slow AV conduction digoxin was 1.8, discontinued digoxin on 05/12, HR up to 70-80s rates 90-100's on Lopressor 50mg BID, however her blood pressure was too low to maintain this dose Decrease metoprolol dose to 25 mg p.o. 3 times daily-tolerating this well (3) Anxiety: Bipolar 1 disorder/Anxiety with depression- Was noted in the past to be contributing to overall symptomatology Multiple changes made to her psychiatric medications during this admission Continue lamotrigine 100mg qAM, pregabalin 75mg at bedtime, quetiapine 100mg HS, Remeron 15mg HS stopped Effexor per psychiatry appreciate their recommendations, they will manage meds, no other changes at this time, monitor response main issue is she is not eating, starting to get hopeless and depressed fears she will never get back home since her hip fracture in late February she has been home one days, otherwise in the hospital or SNF rehab f/u with Psychiatry as outpt (4) Depression: See above severe, not eating well, lacks motivation continue Remeron (5) Bipolar 1 disorder: See above (6) Acute kidney injury: Creatinine 1.46 upon admission Cr improved to baseline after IV fluids hypernatremia resolved (7) Hypokalemia: Potassium normal Reduce potassium chloride dose down to 10 mEq daily (8) Diarrhea: Work-up at last admission was C. difficile negative, stool culture negative, and improved with Cipro and Flagyl treatment for nonspecific proctocolitis noted on CT of abdomen pelvis on 04/16 received loperamide 2 mg p.o. at bedtime, have since stopped resolved, stools are now solid (9) Generalized weakness: history of profound weakness with infection and stress was supposed to follow up with [facility] movement disorder will need a single fiber EMG has been tested for myasthenia gravis and [facility] in the past, negative order PT/OT-recommending care home facility not eating enough to give her energy, try to stimulate appetite with Remeron and Marinol awaiting placement at rehab (10) GERD (gastroesophageal reflux disease): Continue omeprazole 20 mg daily (11) Hypothyroid: Is a diagnosis of hypothyroidism, is not on any thyroid hormone replacement TSH here normal (12) COPD (chronic obstructive pulmonary disease): Continue as needed duo nebs No acute issues Uses 2 L nasal cannula at bedtime (13) Hyperlipidemia: Continue rosuvastatin (14) Hypertension: BPs normal continue metoprolol (15) Folate deficiency anemia: Hemoglobin trending downward throughout her stay and now is down to 8.4 from baseline 9-10. Macrocytic Folate level low at 4.9 Transferrin saturation low at 17% but iron studies more consistent with anemia of chronic disease B12 level was greater than 2000 just 6 weeks ago and was not rechecked this admission -Continue B12 supplement -Add on folic acid 1 mg p.o. once daily Add on ferrous gluconate 325 mg once daily (16) Iron (Fe) deficiency anemia: As above (17) DVT prophylaxis: Eliquis Dispo-stable for discharge to rehab today Total Time Total Time Spent Total Time Spent (In Minutes): 35 minutes Discharge Plan Discharge Items Patient Disposition: Transfer Group Home Fac Reason For Visit: AI, HYPOKALEMIA, DEHYDRATION, ELEV TROPONIN Discharge Diagnosis: Anorexia,Hypokalemia, Dehydration Condition on Discharge: Fair Activity: As commented below Lifting: Gradually increase as tolerated Bathing: No limitations Exercise/Sports: Gradually increase as tolerated Exercise Comment: with PT/OT Weightbearing: Full weightbearing Non-emergency contact: Primary Care Provider Call non-emergency contact if: you have any medication questions and your symptoms worsen Follow-up/Referrals: Abiel Clark MD [Primary Care Provider] - Diet: Regular Diet Texture: Easy to Chew Addtl Attending Provider Instructions: You were admitted with diarrhea, confusion, dehydration, and low potassium. You have been having trouble with poor appetite and it is thought to be related to anxiety and your mental health issues. You are now consistently eating more and drinking protein shakes. Some of your psychiatric medications were adjusted as well. Please continue your protein shakes and increase your oral intake of food. Pending Studies at Discharge: No Stand-Alone Forms: My [facility] Skilled Items Patient informed of condition?: Yes DNR: Yes Discharge Level of Care: Skilled Communicable Disease: No Discharge Prognosis: Improving Lines: None Urinary Catheter: No Medications and DC Order Prescriptions: New quetiapine 100 mg Tablet 100 mg PO HS Qty: 30 RF: 0 dronabinol 2.5 mg Capsule 5 mg PO BID Qty: 120 RF: 0 mirtazapine 15 mg Tablet 15 mg PO HS Qty: 30 RF: 0 lamotrigine 100 mg Tablet 100 mg PO QAM Qty: 30 RF: 0 potassium chloride [Klor-Con M10] 10 mEq Tablet,Er Particles/Crystals 10 meq PO QAM Qty: 30 RF: 0 thiamine HCl (vitamin B1) [Vitamin B-1] 100 mg Tablet 100 mg PO QAM Qty: 30 RF: 0 pantoprazole 40 mg Tablet,Delayed Release (Dr/Ec) 40 mg PO QAM Qty: 30 RF: 0 folic acid 1 mg Tablet 1 mg PO QAM Qty: 30 RF: 0 Certavite-Antioxidant 18-400 mg-mcg Tablet 1 tab PO QAM Qty: 30 RF: 0 Continued (DME) Oxygen Home Liters Per Minute See Rx Instructions .ROUTE .MEDSUPPLY Qty: 1 RF: 0 rosuvastatin 10 mg tablet 10 mg PO HS RF: 0 cholecalciferol (vitamin D3) 25 mcg (1,000 unit) capsule 25 mcg PO DAILY RF: 0 cyanocobalamin (vitamin B-12) 5,000 mcg capsule 5,000 mcg PO DAILY RF: 0 nitroglycerin [Nitrostat] 0.4 mg Tablet, Sublingual 0.4 mg Sublingual UD PRN (Reason: Angina) RF: 0 roflumilast 500 mcg tablet 500 mcg PO QAM RF: 0 Combivent Respimat 20-100 mcg/actuation mist 2 puff INHALATION Q6H PRN (Reason: Shortness Of Breath) RF: 0 aspirin 81 mg Tablet,Delayed Release (Dr/Ec) 81 mg PO DAILY 30 Days Qty: 30 RF: 0 ferrous gluconate 324 mg (38 mg iron) Tablet 324 mg PO BIDM Qty: 60 RF: 0 ondansetron HCl [Zofran] 4 mg tablet 4 mg PO Q8H PRN (Reason: nausea and vomiting) Qty: 6 RF: 0 pregabalin 75 mg capsule 75 mg PO HS Qty: 30 RF: 0 Eliquis 5 mg tablet 5 mg PO BID Qty: 30 RF: 1 Changed metoprolol tartrate 25 mg Tablet 25 mg PO TID 30 Days Qty: 90 RF: 3 Discontinued lamotrigine 150 mg tablet 150 mg PO QAM RF: 0 quetiapine 150 mg tablet extended release 24 hr 150 mg PO HS RF: 0 loperamide 2 mg Capsule 2 mg PO HS 30 Days Qty: 30 RF: 0 digoxin [Digitek] 125 mcg (0.125 mg) Tablet 125 mcg PO DAILY@1600 30 Days Qty: 30 RF: 3 potassium chloride 20 mEq Tablet,Er Particles/Crystals 20 meq PO QAM RF: 0 omeprazole 20 mg Tablet,Delayed Release (Dr/Ec) 20 mg PO HS RF: 0 venlafaxine 37.5 mg tablet 37.5 mg PO QAM RF: 0 Discharge Orders: Discharge Order (Routine); Ordered 05/31/21 Ordered By: Dana Slaughter Admission Data Admit Date/Time: 05/08/21 23:18 Attending Provider: Dana Slaughter Admit Provider: Jon Ferguson Primary Care Provider: Abiel Clark Other Providers: Silvio Cornejo at [place] ; DerekGladys curtis ; [place] ; Jon Ferguson ; Guy Ledezma ; Dr London ; Tania Ahumada ; Pranav Avendaño ; Chetna Richmond ; Lisandro Dominguez Coding Level of Care Code D/C DAY MANAGEMENT >30 MINS Diagnoses Anorexia R63.0 Atrial fibrillation I48.91 Anxiety F41.9 Depression F32.9 Bipolar 1 disorder F31.9 Acute kidney injury N17.9 Hypokalemia E87.6 Diarrhea R19.7 Diarrhea type: unspecified type Generalized weakness R53.1 GERD (gastroesophageal reflux disease) K21.9 Hypothyroid E03.9 Hypothyroidism type: unspecified COPD (chronic obstructive pulmonary disease) J44.9 COPD type: unspecified COPD Hyperlipidemia E78.5 Hyperlipidemia type: unspecified Hypertension I10 Hypertension type: essential hypertension Folate deficiency anemia D52.9 Iron (Fe) deficiency anemia D50.9 Iron deficiency anemia type: unspecified iron deficiency DVT prophylaxis Z29.9
== END 2021-05-31 19:01 | DRG 640 ==
LOC: ED 18:22 → SUATTDRO 23:18 → 2E 23:18 → 2W 05-09 08:33 → 2N 05-19 18:41

== ENCOUNTER 2021-06-17 15:47 | Inpatient (IN) ==
[2021-06-17] MEDS ORDERED: SODIUM CHLORIDE 0.9% 1000ML 1,000 ML IV ONE (16:03)
[2021-06-17] MEDS ORDERED: PANTOPRAZOLE BOLUS/DRIP 1 EA IV STA (16:06)
[2021-06-17] MEDS ORDERED: PANTOprazole 80 MG in DEXTROSE 5% 100 ML IV ONE (16:06)
[2021-06-17] MEDS ORDERED: SODIUM CHLORIDE 0.9% 250 ML IV PRN ×3 (16:10→19:42)
--- NOTE | 2021-06-17 16:10 | Emergency Department Note ---
Impression & Plan Acute GI bleeding, A-fib, Anemia ED Provider Note NAME: NELLIE ANDERSON AGE: 81 SEX: F : 1940 ARRIVES VIA: Ambulance INFORMANT: Patient ED PROVIDER(S): Ulisses Vigil DO CHIEF COMPLAINT: GI bleed HPI: Patient is a 81-year-old female who presents to the ER for GI bleed. She notes she has been having dark tarry stools and bright red blood per rectum for the past 2 days. She admits to taking a NOAC for her A. fib. She denies any headache or change in vision. No chest pain or shortness of breath. No nausea vomiting or diarrhea. No dysuria urgency or frequency. No other exacerbating or remitting factors. She notes she is been having diarrhea for the whole day today. She was brought in from [facility]. No other complaints. She denies any belly pain. ROS: See above HPI for pertinent positives & negatives. A total of 10 systems reviewed and were otherwise negative. PAST MEDICAL HISTORY:See Below PAST SURGICAL HISTORY:See Below FAMILY HISTORY:See Below SOCIAL HISTORY:See Below HOME MEDICATIONS:See Below ALLERGIES:See Below VITALS:See Below PHYSICAL EXAMINATION: GENERAL: Sitting up in bed, alert, well appearing, well nourished, no distress, non-toxic EYE EXAM: normal conjunctiva. OROPHARYNX: no exudate, no erythema, lips, buccal mucosa, and tongue normal and mucous membranes are moist NECK: supple, no nuchal rigidity, no adenopathy, non-tender LUNGS: Clear to auscultation. Normal chest wall mechanics HEART: Tachycardic and irregular regular, S1 normal and S2 normal ABDOMEN: abdomen soft, non-tender, normo-active bowel sounds, no masses, no rebound or guarding. RECTAL: Performed with female RN at bedside. Black stool around the anus heme positive. BACK: Back is symmetrical on inspection and there is no deformity, no midline tenderness, no CVA tenderness. SKIN: no rashes and no bruising UPPER EXTREMITIES: upper extremities are grossly normal. LOWER EXTREMITIES: No pitting edema. NEURO EXAM: Normal sensorium, cranial nerves II-XII grossly intact, normal speech, no gross weakness of arms, no gross weakness of legs. MEDICAL DECISION MAKING: Patient is a 81-year-old female who presents the ER for black stools on NOAC. IV was dosed blood work was obtained. Labs show no significant leukocytosis mild anemia at 7.6 down from baseline of 9. Rectally dark stools. BMP with elevated BUN. Creatinine 1.3. Troponin was negative. Lipase unremarkable. Patient was typed and crossed and ordered for PRBCs while in the ER. She was transfused. I concern her bedside. CT abdomen pelvis showed no change from previous. She has no belly pain. Ordered Lopressor for A. fib with RVR but rayray le held this. Patient was updated bedside. Admitted to the hospital for GI bleed currently hemodynamically stable although in A. fib with RVR. Triage Nursing notes reviewed. Limited review of prior medical records performed Vital Signs: reviewed and remarkable for tachy Differential diagnosis: Differential diagnoses includes but is not limited to gastritis, peptic ulcer disease, GERD, gallbladder disease, pancreatitis, small bowel obstruction, acute coronary syndrome, pericarditis, ischemic bowel, irritable bowel disease, irritable bowel syndrome, appendicitis, diverticulitis, malignancy, hernia, urinary tract infection, torsion, perforation, trauma, infectious. ER treatment provided: See below Diagnostics interpreted by me: ECG: A. fib RVR rate of 139 Normal axis Low voltage T wave inversion inferior leads ST depressions in the lateral leads Cardiac Monitoring: An order was placed for continuous cardiac monitoring. The m onitor shows a rate of 141 with sinus rhythm. Laboratory studies: As stated above and show below. Imaging studies: CT abdomen pelvis as discussed above Consultation(s): Discussed with Geronimo from not any hospitalist service Procedures: none Critical Care: I have personally spent 32 minutes of critical care time in the direct management of this patient. This includes bedside care, interpretation of diagnostic studies, and testing, discussion with consultants, patient, and family members, and other required patient management activities. This 32 minutes is in excess of all separately billable procedures. Past Med/Surg History Medical History Anemia REASON FOR COLONOSCOPY 07/2019 Atrial fibrillation Atrial fibrillation with rapid ventricular response Bipolar 1 disorder Breast cancer (08/23/14) "Abnormal bilateral mammogram Status post core needle biopsy 08/23/2014 revealing intraductal papilloma on the left Right breast showed invasive ductal carcinoma Status post right lumpectomy and sentinel lymph node biopsy 10/08/2014 Stage [id number] Status post completion of radiation therapy 12/24/2014 utilizing hypo-frac tionation received 5000 cGy" Breast cancer, right 2014--stage 1--lumpectomy and radiation Change in vision Chronic obstructive pulmonary disease inhaler daily Closed fracture of left hip Degenerative joint disease Depression Elevated troponin I level Fall Folate deficiency anemia GERD (gastroesophageal reflux disease) Heme + stool History of colon polyps Hyperlipidemia Hypertension Hypokalemia Hypothyroidism Medical marijuana use Myocardial Infarction "silent" in 90s--follows with Dr. Gibbs On home oxygen therapy 2L N/C at hs Pancreatitis hx of Papilloma of breast left Sleep apnea Temporal arteritis Unstable angina Unstable angina Surgical History History of bilateral cataract extraction History of bilateral tubal ligation History of breast surgery removal of papilloma of left breast History of cardiac cath x3--last ---no stents History of cholecystectomy History of colonoscopy History of esophagogastroduodenoscopy (EGD) History of lumpectomy of right breast History of right breast biopsy malignant History of tooth extraction all teeth removed History of total hysterectomy with bilateral salpingo-oophorectomy (BSO) Family History Grandfather (Paternal) Family history of diabetes mellitus Other No family history of adverse response to anesthesia Social History Smoking Status: Former smoker Cigarettes Per Day: 20 a day; Second Hand Exposure: No; Hx Alcohol Use: No Hx Substance Use: No Preferred Language: Japanese Communication Ability: Effective Serology Teacher Required: No Beliefs That Will Affect Care: None Current Living Situation: Family Other Information That Helps Us Care for You: No Feels Safe at Home: Yes Safety Concerns: Feels Safe At This Time Assistive Devices: Denture - Upper, Denture - Lower, Oxygen - at Night, Walker and Wheelchair Allergies Allergies Allergy/AdvReac Type Severity Reaction Status Date / Time metoclopramide Allergy Intermediate ESSENTIAL Verified 06/17/21 17:23 TREMORS clopidogrel Allergy Mild HIVES Verified 06/17/21 17:23 diazepam Allergy Mild DEPRESSION Verified 06/17/21 17:23 diltiazem Allergy Mild Light Verified 06/17/21 17:23 headed erythromycin base Allergy Mild EES, TAKES Verified 06/17/21 17:23 Z-PACKS W/O RXN gabapentin Allergy Mild States Verified 06/17/21 17:23 hands catch fire latex Allergy Mild rips skin Verified 06/17/21 17:23 off lisinopril Allergy Mild COUGH Verified 06/17/21 17:23 losartan Allergy Mild HIVES Verified 06/17/21 17:23 micafungin Allergy Mild rash Verified 06/17/21 17:23 oxycodone Allergy Mild INC. Verified 06/17/21 17:23 DEPRESSION Penicillins Allergy Mild Diarrhea Verified 06/17/21 17:23 promethazine Allergy Mild TROUBLE Verified 06/17/21 17:23 FOCUSING SPEAKING AT HIGHER DOSES Sulfa (Sulfonamide Allergy Mild SKIN Verified 06/17/21 17:23 Antibiotics) BECOMES PHOTOSENSITIVE AND BECOMES RED bupropion Allergy Unknown unknown Verified 06/17/21 17:23 dicyclomine Allergy Unknown Unknown Verified 06/17/21 17:23 potassium chloride Allergy Unknown Unknown Verified 05/08/21 19:53 sucralfate Allergy Unknown Unknown Verified 06/17/21 17:23 Jemhqbq-Sta-Xuo Reductase AdvReac Intermediate Diarrhea Verified 06/17/21 17:23 Inhibitor amoxicillin AdvReac Mild DIARRHEA Verified 06/17/21 17:23 clavulanic acid AdvReac Mild DIARRHEA Verified 06/17/21 17:23 hydrocodone AdvReac Mild "dont like Verified 06/17/21 17:23 how it makes me feel" Home Meds Home Medications Medication Instructions Recorded Confirmed nitroglycerin 0.4 mg sublingual 0.4 mg SUBLINGUAL UD PRN 01/01/19 06/17/21 tablet (Nitrostat) roflumilast 500 mcg tablet 500 mcg PO QAM 01/01/19 06/17/21 Oxygen Home #1 ea 07/21/20 04/10/21 cholecalciferol (vitamin D3) 25 25 mcg PO DAILY 01/11/21 06/17/21 mcg (1,000 unit) capsule cyanocobalamin (vitamin B-12) 5,000 mcg PO DAILY 01/11/21 06/17/21 5,000 mcg capsule rosuvastatin 10 mg tablet 10 mg PO HS 01/11/21 06/17/21 aspirin 81 mg chewable tablet 81 mg PO DAILY 06/17/21 06/17/21 famotidine 20 mg tablet 20 mg PO BIDM 06/17/21 06/17/21 lamotrigine 100 mg tablet 100 mg PO DAILY 06/17/21 06/17/21 (Lamictal) loperamide 2 mg tablet 2 mg PO TID 06/17/21 06/17/21 Previous Rx's Medication Instructions Recorded ferrous gluconate 324 mg (38 mg 324 mg PO BIDM #60 tab 03/11/21 iron) tablet ondansetron HCl 4 mg tablet 4 mg PO Q8H PRN #6 tab 03/11/21 (Zofran) pregabalin 75 mg capsule 75 mg PO HS #30 cap 03/11/21 apixaban 5 mg tablet (Eliquis) 5 mg PO BID #30 tab 04/04/21 folic acid 1 mg tablet 1 mg PO QAM #30 tab 05/31/21 metoprolol tartrate 25 mg tablet 25 mg PO TID 30 Days #90 tab 05/31/21 mirtazapine 15 mg tablet 15 mg PO HS #30 tab 05/31/21 multivitamin-ferrous 1 tab PO QAM #30 tab 05/31/21 fumarate-folic acid 18 mg-400 mcg tablet (Certavite-Antioxidant) pantoprazole 40 mg tablet,delayed 40 mg PO QAM #30 tab 05/31/21 release potassium chloride 10 mEq 10 meq PO QAM #30 tab 05/31/21 tablet,extended release(part/cryst) (Klor-Con M) quetiapine 100 mg tablet 100 mg PO HS #30 tab 05/31/21 thiamine HCl (vitamin B1) 100 mg 100 mg PO QAM #30 tab 05/31/21 tablet (Vitamin B-1) Results & Data (ED) Vital Signs Vital Signs - 24 hr 06/17/21 15:54 06/17/21 15:58 06/17/21 17:25 Temperature 37.4 C Temperature Source Oral Pulse Rate 142 H 139 H 121 H Pulse Rate from SpO2 Sensor 141 H Respiratory Rate 26 H 26 H 20 Respiratory Effort / Characteristics Non-Labored Respiratory Depth Normal Respiratory Pattern Regular Blood Pressure 116/79 116/79 Blood Pressure Mean 91 91 Blood Pressure Position Lying Pulse Oximetry 90 98 Oxygen Delivery Method Room Air Sepsis Recent Fever Within 48 Hours No Sepsis New/Unexplained Change in Mental Status N/A Sepsis Action Taken by Nursing No Action Required 06/17/21 17:30 06/17/21 18:02 Temperature Temperature Source Pulse Rate 122 H 134 H Pulse Rate from SpO2 Sensor Respiratory Rate 29 H 21 Respiratory Effort / Characteristics Respiratory Depth Respiratory Pattern Blood Pressure 116/84 Blood Pressure Mean 94 Blood Pressure Position Pulse Oximetry Oxygen Delivery Method Sepsis Recent Fever Within 48 Hours Sepsis New/Unexplained Change in Mental Status Sepsis Action Taken by Nursing Laboratory Data Result diagrams: 06/17/21 16:20 06/17/21 16:20 Lab Results 06/17/21 06/17/21 06/17/21 Range/Units 16:20 16:20 16:20 WBC 5.99 (4.8-10.8) K/uL RBC 2.47 L (4.2-5.4) M/uL Hgb 7.6 L (12.0-16.0) g/dL Hct 24.7 L (37-47) % MCV 100.0 (80-100) fL MCH 30.8 (25-34) pg MCHC 30.8 L (32-36) g/dL RDW Std Deviation 59.8 H (36.4-46.3) fL RDW Coeff of Gino 16.4 H (11.5-14.5) % Plt Count 222 (130-400) K/uL MPV 9.9 (7.4-10.4) fL Immature Gran % (Auto) 0.2 % Neut % (Auto) 55.7 % Lymph % (Auto) 31.4 % [place] % (Auto) 10.7 % Eos % (Auto) 1.3 % Baso % (Auto) 0.7 % Neut # (Auto) 3.34 (1.4-6.5) K/uL Lymph # (Auto) 1.88 (1.2-3.4) K/uL [place] # (Auto) 0.64 H (0.11-0.59) K/uL Eos # (Auto) 0.08 (0-0.5) K/uL Baso # (Auto) 0.04 (0-0.2) K/uL Immature Gran # (Auto) 0.01 (0.00-0.02) K/uL Polychromasia 1+ Hypochromasia Present ESR 12 (0-30) mm/hr Sodium 145 (136-145) mmol/L Potassium 4.8 (3.5-5.1) mmol/L Chloride 114 H (98-107) mmol/L Carbon Dioxide 27 (21-32) mmol/L Anion Gap 3.0 (3-11) BUN 30 H (7-18) mg/dl Creatinine 1.33 H (0.6-1.2) mg/dl Est Cr Clr Drug Dosing 29.5 ml/min Est GFR ( Amer) 44.0 ml/min Est GFR (Non-Af Amer) 37.9 ml/min BUN/Creatinine Ratio 22.5 H (10-20) Glucose 106 H (70-99) mg/dl Calcium 8.4 L (8.5-10.1) mg/dl Magnesium 2.0 (1.8-2.4) mg/dl Total Bilirubin 0.4 (0.2-1) mg/dl AST 19 (15-37) U/L ALT 12 (12-78) U/L Alkaline Phosphatase 56 (45-117) U/L Lactate Dehydrogenase (84-246) U/L Troponin I 0.016 (0-0.045) ng/ml C-Reactive Protein < 0.29 (0-0.29) mg/dl Total Protein 5.7 L (6.4-8.2) gm/dl Albumin 2.4 L (3.4-5.0) gm/dl Globulin 3.3 (2.5-4.0) gm/dl Albumin/Globulin Ratio 0.7 L (0.9-2) Lipase 52 L (73-393) U/L COVID-19 Eval Order SARS-CoV-2 (PCR) (Negative) Blood Type Antibody Screen Crossmatch 06/17/21 06/17/21 06/17/21 Range/Units 16:20 16:49 16:51 WBC (4.8-10.8) K/uL RBC (4.2-5.4) M/uL Hgb (12.0-16.0) g/dL Hct (37-47) % MCV (80-100) fL MCH (25-34) pg MCHC (32-36) g/dL RDW Std Deviation (36.4-46.3) fL RDW Coeff of Gino (11.5-14.5) % Plt Count (130-400) K/uL MPV (7.4-10.4) fL Immature Gran % (Auto) % Neut % (Auto) % Lymph % (Auto) % [place] % (Auto) % Eos % (Auto) % Baso % (Auto) % Neut # (Auto) (1.4-6.5) K/uL Lymph # (Auto) (1.2-3.4) K/uL [place] # (Auto) (0.11-0.59) K/uL Eos # (Auto) (0-0.5) K/uL Baso # (Auto) (0-0.2) K/uL Immature Gran # (Auto) (0.00-0.02) K/uL Polychromasia Hypochromasia ESR (0-30) mm/hr Sodium (136-145) mmol/L Potassium (3.5-5.1) mmol/L Chloride (98-107) mmol/L Carbon Dioxide (21-32) mmol/L Anion Gap (3-11) BUN (7-18) mg/dl Creatinine (0.6-1.2) mg/dl Est Cr Clr Drug Dosing ml/min Est GFR ( Amer) ml/min Est GFR (Non-Af Amer) ml/min BUN/Creatinine Ratio (10-20) Glucose (70-99) mg/dl Calcium (8.5-10.1) mg/dl Magnesium (1.8-2.4) mg/dl Total Bilirubin (0.2-1) mg/dl AST (15-37) U/L ALT (12-78) U/L Alkaline Phosphatase (45-117) U/L Lactate Dehydrogenase 203 (84-246) U/L Troponin I (0-0.045) ng/ml C-Reactive Protein (0-0.29) mg/dl Total Protein (6.4-8.2) gm/dl Albumin (3.4-5.0) gm/dl Globulin (2.5-4.0) gm/dl Albumin/Globulin Ratio (0.9-2) Lipase (73-393) U/L COVID-19 Eval Order Covid19 at [facility] SARS-CoV-2 (PCR) (Negative) Blood Type B Positive Antibody Screen NEGATIVE Crossmatch See Detail 06/17/21 Range/Units 16:51 WBC (4.8-10.8) K/uL RBC (4.2-5.4) M/uL Hgb (12.0-16.0) g/dL Hct (37-47) % MCV (80-100) fL MCH (25-34) pg MCHC (32-36) g/dL RDW Std Deviation (36.4-46.3) fL RDW Coeff of Gino (11.5-14.5) % Plt Count (130-400) K/uL MPV (7.4-10.4) fL Immature Gran % (Auto) % Neut % (Auto) % Lymph % (Auto) % [place] % (Auto) % Eos % (Auto) % Baso % (Auto) % Neut # (Auto) (1.4-6.5) K/uL Lymph # (Auto) (1.2-3.4) K/uL [place] # (Auto) (0.11-0.59) K/uL Eos # (Auto) (0-0.5) K/uL Baso # (Auto) (0-0.2) K/uL Immature Gran # (Auto) (0.00-0.02) K/uL Polychromasia Hypochromasia ESR (0-30) mm/hr Sodium (136-145) mmol/L Potassium (3.5-5.1) mmol/L Chloride (98-107) mmol/L Carbon Dioxide (21-32) mmol/L Anion Gap (3-11) BUN (7-18) mg/dl Creatinine (0.6-1.2) mg/dl Est Cr Clr Drug Dosing ml/min Est GFR ( Amer) ml/min Est GFR (Non-Af Amer) ml/min BUN/Creatinine Ratio (10-20) Glucose (70-99) mg/dl Calcium (8.5-10.1) mg/dl Magnesium (1.8-2.4) mg/dl Total Bilirubin (0.2-1) mg/dl AST (15-37) U/L ALT (12-78) U/L Alkaline Phosphatase (45-117) U/L Lactate Dehydrogenase (84-246) U/L Troponin I (0-0.045) ng/ml C-Reactive Protein (0-0.29) mg/dl Total Protein (6.4-8.2) gm/dl Albumin (3.4-5.0) gm/dl Globulin (2.5-4.0) gm/dl Albumin/Globulin Ratio (0.9-2) Lipase (73-393) U/L COVID-19 Eval Order SARS-CoV-2 (PCR) POSITIVE A* (Negative) Blood Type Antibody Screen Crossmatch Administered Medications Discontinued Medications Sodium Chloride (Nss 1000ml) 1,000 mls @ 999 mls/hr IV .[id number] ONE Stop: 06/17/21 17:03 Last Infusion: 06/17/21 18:27 Dose: 0 mls/hr Documented by: [id number] Admin: 06/17/21 17:04 Dose: 999 mls/hr Documented by: [id number] Pantoprazole Sodium (Protonix Bolus/Drip) 0 mls @ 1 mls/hr IV ONE STA Stop: 06/17/21 16:07 Last Admin: 06/17/21 17:09 Dose: 1 mls/hr Documented by: [id number] Pantoprazole Sodium 40 mg/ (Dextrose) 100 mls @ 20 mls/hr IV Q5H JANINE Stop: 07/17/21 16:29 Last Admin: 06/17/21 17:33 Dose: 8 mg/hr, 20 mls/hr Documented by: [id number] Pantoprazole Sodium 80 mg/ (Dextrose) 120 mls @ 400 mls/hr IV NOW ONE Stop: 06/17/21 16:23 Last Infusion: 06/17/21 17:33 Dose: 0 mls/hr Documented by: [id number] Admin: 06/17/21 17:04 Dose: 400 mls/hr Documented by: [id number] Ioversol (Optiray 320 100ml) 94 ml IV ONCE ONE Stop: 06/17/21 17:10 Last Admin: 06/17/21 17:10 Dose: 1 ml Documented by: [id number] Imaging Data Radiologist's Impression: Abdomen/Pelvis CT 06/17/21 16:03 CT SCAN OF THE ABDOMEN AND PELVIS WITH IV CONTRAST CLINICAL HISTORY: Generalized abdominal pain. COMPARISON STUDY: Abdominal CT dated CT scans dated 05/19/2021 and 04/16/2021. TECHNIQUE: Following the IV administration of 94 cc of Optiray 320, CT scan of the abdomen and pelvis is performed from the lung bases to the proximal femora. Images are reviewed in the axial, sagittal, and coronal planes. IV contrast was administered without complication. A dose lowering technique was utilized adhering to the principles of ALARA. The examination is modestly degraded by mot ion artifact. CT DOSE: 296.50 mGy.cm FINDINGS: Lung bases: The heart is mildly enlarged and without pericardial effusion. The coronary arteries are densely calcified. Emphysematous change is noted. There is trace right pleural effusion and bibasilar atelectasis. A small hiatal hernia is noted. Liver: The contrast-enhanced liver is normal in size and contour. The liver demonstrates diffusely diminished attenuation consistent with hepatic steatosis. There is mild central intrahepatic biliary ductal dilatation. The hepatic veins and portal veins are patent. Gallbladder: Surgically absent noting clips in the gallbladder fossa. Spleen: Normal in size and attenuation. Pancreas: Moderately atrophic and grossly unremarkable. Adrenal glands: Unremarkable. Kidneys: The contrast enhanced kidneys demonstrate cortical atrophy and are without hydronephrosis. A 2.5 cm cyst is noted in the interpolar left kidney. The kidneys enhance symmetrically. Abdominal vasculature: The abdominal aorta is normal in course and caliber noting advanced atherosclerotic calcification. There is advanced atherosclerotic plaque seen involving the superior mesenteric artery. Bowel: Again seen is wall thickening and edema of the rectosigmoid colon with faint surrounding infiltration. This is consistent with a nonspecific proctocoli tis. There is no bowel obstruction. There are scattered colonic diverticula without CT evidence of acute diverticulitis. The left colon is relatively decompressed. The appendix is well-visualized and normal. Peritoneum: There is no intraperitoneal free air or abdominal ascites Lymphadenopathy: None. Pelvic viscera: The bladder is normal as visualized noting small dependent bladder calculi. The uterus is surgically absent. No adnexal lesion is seen Skeletal structures: The skeletal structures are osteopenic. There is mild lumbosacral spondylosis. No lytic or blastic lesions are seen. Chronic posttraumatic deformity and postoperative change is partially visualized in the left proximal femur. IMPRESSION: 1. Findings are consistent with a nonspecific proctocolitis involving the rectosigmoid. This is similar to the 04/16/2021 examination. 2. Trace right pleural effusion. 3. Emphysema. 4. Small bladder calculi are noted. 5. Additional findings as above. ACT 112: Negative or not required by law. Electronically signed by: Doug Mancilla M.D. 06/17/2021 5:32 PM Chest X-Ray 06/17/21 16:07 SINGLE VIEW CHEST CLINICAL HISTORY: Atrial fibrillation. FINDINGS: An AP, portable, upright chest radiograph is compared to study dated 05/08/2021. Correlation is made with chest CT dated 08/15/2018. The heart is mildly enlarged noting atherosclerotic calcification of the thoracic aorta. The pulmonary vasculature is noncongested. Emphysema and chronic interstitial thickening is similar to previous. No airspace consolidation or large pleural effusion is identified. No pneumothorax is seen. The skeletal structures are osteopenic. The bony thorax is grossly intact. IMPRESSION: Cardiomegaly and emphysema with no acute cardiopulmonary abnormality. ACT 112: Negative or not required by law. Electronically signed by: Doug Mancilla M.D. 06/17/2021 5:01 PM Discharge Plan Visit Data Chief Complaint: GI Bleed ED Provider: Ulisses Vigil Discharge Problem: Acute GI bleeding, A-fib, Anemia Patient Disposition: Admitted As Inpatient Discharge Instructions Interventions: ED Discharge Assessment Last Done: 06/17/21 19:18 Discharge Problem: A-fib Qualifiers: Atrial fibrillation type: unspecified Qualified Code(s): I48.91 - Unspecified atrial fibrillation Anemia Qualifiers: Anemia type: unspecified type Qualified Code(s): D64.9 - Anemia, unspecified
[2021-06-17] MEDS ORDERED: PANTOprazole 40 MG in DEXTROSE 5% 100 ML IV SCH (16:30)
[2021-06-17 16:35] LABS: Basophils # (auto) 0.04 K/uL (0-0.2); Basophils % (auto) 0.7 %; Eosinophils # (auto) 0.08 K/uL (0-0.5); Eosinophils % (auto) 1.3 %; Hematocrit (blood only) 24.7 % (37-47); Hemoglobin 7.6 g/dL (12.0-16.0); Immature Granulocytes # (auto) 0.01 K/uL (0.00-0.02); Immature Granulocytes % (auto) 0.2 %; Lymphocytes # (auto) 1.88 K/uL (1.2-3.4); Lymphocytes % (auto) 31.4 %; Mean Corpuscular Hemoglobin 30.8 pg (25-34); Mean Corpuscular Hgb Conc 30.8 g/dL (32-36); Mean Platelet Volume 9.9 fL (7.4-10.4); Monocytes # (auto) 0.64 K/uL (0.11-0.59); Monocytes % (auto) 10.7 %; Neutrophils # (auto) 3.34 K/uL (1.4-6.5); Neutrophils % (auto) 55.7 %; Platelet Count 222 K/uL (130-400); RDW Coefficient of Variation 16.4 % (11.5-14.5); RDW Standard Deviation 59.8 fL (36.4-46.3); Red Blood Count 2.47 M/uL (4.2-5.4); White Blood Count 5.99 K/uL (4.8-10.8)
[2021-06-17 17:00] LABS: Alanine Aminotransferase 12 U/L (12-78); Albumin Level 2.4 gm/dl (3.4-5.0); Aspartate Aminotransferase 19 U/L (15-37); BUN Creatinine Ratio 22.5 (10-20); Blood Urea Nitrogen 30 mg/dl (7-18); Calcium 8.4 mg/dl (8.5-10.1); Carbon Dioxide 27 mmol/L (21-32); Chloride 114 mmol/L (98-107); Creatinine Clr Calc Pharmacy 29.5 ml/min; Est GFR (Non-African American) 37.9 ml/min; Glucose 106 mg/dl (70-99); Lipase 52 U/L (73-393); Potassium 4.8 mmol/L (3.5-5.1); Sodium 145 mmol/L (136-145)
--- NOTE | 2021-06-17 17:02 | XRay Report ---
SINGLE VIEW CHEST CLINICAL HISTORY: Atrial fibrillation. FINDINGS: An AP, portable, upright chest radiograph is compared to study dated 05/08/2021. Correlation is made with chest CT dated 08/15/2018. The heart is mildly enlarged noting atherosclerotic calcifica tion of the thoracic aorta. The pulmonary vasculature is noncongested. Emphysema and chronic intersti tial thickening is similar to previous. No airspace consolidation or large pleural effusion is identi fied. No pneumothorax is seen. The skeletal structures are osteopenic. The bony thorax is grossly int act. IMPRESSION: Cardiomegaly and emphysema with no acute cardiopulmonary abnormality. ACT 112: Negative or not required by law. Electronically signed by: Doug Mancilla M.D. 06/17/2021 5:01 PM
[2021-06-17 17:06] LABS: Albumin Globulin Ratio 0.7 (0.9-2); Alkaline Phosphatase 56 U/L (45-117); Bilirubin,Total 0.4 mg/dl (0.2-1); Globulin 3.3 gm/dl (2.5-4.0); Total Protein 5.7 gm/dl (6.4-8.2); Troponin I 0.016 ng/ml (0-0.045)
[2021-06-17] MEDS ORDERED: OPTIRAY 320 100ml IV ONE (17:09)
[2021-06-17 17:22] LABS: Hypochromasia Present; Polychromasia 1+
[2021-06-17] MEDS ORDERED: METOPROLOL TARTRATE 1 MG/ML VIAL IV PRN (17:30)
--- NOTE | 2021-06-17 17:33 | CT Scan Report ---
CT SCAN OF THE ABDOMEN AND PELVIS WITH IV CONTRAST CLINICAL HISTORY: Generalized abdominal pain. COMPARISON STUDY: Abdominal CT dated CT scans dated 05/19/2021 and 04/16/2021. TECHNIQUE: Following the IV administration of 94 cc of Optiray 320, CT scan of the abdomen and pelvi s is performed from the lung bases to the proximal femora. Images are reviewed in the axial, sagittal , and coronal planes. IV contrast was administered without complication. A dose lowering technique wa s utilized adhering to the principles of ALARA. The examination is modestly degraded by motion artifa ct. CT DOSE: 296.50 mGy.cm FINDINGS: Lung bases: The heart is mildly enlarged and without pericardial effusion. The coronary arteries are densely calcified. Emphysematous change is noted. There is trace right pleural effusion and bibasilar atelectasis. A small hiatal hernia is noted. Liver: The contrast-enhanced liver is normal in size and contour. The liver demonstrates diffusely di minished attenuation consistent with hepatic steatosis. There is mild central intrahepatic biliary du ctal dilatation. The hepatic veins and portal veins are patent. Gallbladder: Surgically absent noting clips in the gallbladder fossa. Spleen: Normal in size and attenuation. Pancreas: Moderately atrophic and grossly unremarkable. Adrenal glands: Unremarkable. Kidneys: The contrast enhanced kidneys demonstrate cortical atrophy and are without hydronephrosis. A 2.5 cm cyst is noted in the interpolar left kidney. The kidneys enhance symmetrically. Abdominal vasculature: The abdominal aorta is normal in course and caliber noting advanced atheroscle rotic calcification. There is advanced atherosclerotic plaque seen involving the superior mesenteric artery. Bowel: Again seen is wall thickening and edema of the rectosigmoid colon with faint surrounding infil tration. This is consistent with a nonspecific proctocolitis. There is no bowel obstruction. There ar e scattered colonic diverticula without CT evidence of acute diverticulitis. The left colon is relati vely decompressed. The appendix is well-visualized and normal. Peritoneum: There is no intraperitoneal free air or abdominal ascites Lymphadenopathy: None. Pelvic viscera: The bladder is normal as visualized noting small dependent bladder calculi. The uteru s is surgically absent. No adnexal lesion is seen Skeletal structures: The skeletal structures are osteopenic. There is mild lumbosacral spondylosis. N o lytic or blastic lesions are seen. Chronic posttraumatic deformity and postoperative change is part ially visualized in the left proximal femur. IMPRESSION: 1. Findings are consistent with a nonspecific proctocolitis involving the rectosigmoid. This is simil ar to the 04/16/2021 examination. 2. Trace right pleural effusion. 3. Emphysema. 4. Small bladder calculi are noted. 5. Additional findings as above. ACT 112: Negative or not required by law. Electronically signed by: Doug Mancilla M.D. 06/17/2021 5:32 PM
--- NOTE | 2021-06-17 18:29 | History & Physical Report ---
Date of Service June 17, 2021 Assessment & Plan (1) GI bleed: Plan: Presumed UGI with dark stools, Heme positive in the EMD, HGB 7.6, tachycardia, elevated BUN - Blatchford score 11 - Protonix drip started in emd- continue- consider changing to BID dosing in morning - NPO except Meds - Transfuse 2 units PRBC - follow CBC and HR response - Currently warm, well perfused, pulses strong - GI consulted - Obtain 18 gauge or larger for transfusion - Calcium Gluconate 1GM following blood transfusion - Eliquis taken earlier today at some point- will not reverse as not life- threatening or acute hemmorhage on CT scan or clinical - Consider adding in FFP if needed - 2 unit PRBC - reassess (2) Atrial fibrillation: Plan: Usual HR 90-110 she thinks she took her medications this morning - HR 120-140 resuscitate follow HR response - Lopressor IV available if adequately resuscitated or HR >120 - Hold eliquis- will not reverse as transfusion and time will clear (3) CAD (coronary artery disease): Plan: Multivessel CAD: RCA, LCX, LAD, L-main and ramus - Cardiac cath 2001 and 2006 collateral flow with medical management - Continue statin - Metoprolol for rate control- as long as she remains hemodynamically stable with BP (4) Hypertension: Plan: Controlled - Hold as above until hemodynamic proven - will continue metoprolol (5) Hyperlipidemia: Plan: Continue statin (6) Iron (Fe) deficiency anemia: Plan: Is on iron replacement as outpatient - MCV 100 (7) COPD (chronic obstructive pulmonary disease): Plan: Stable no frequent exacerbations - Continue roflumilast, (8) Depression: Plan: Continue quetiapine (9) Abnormal CT of the abdomen: Plan: Chronic proctocolitis with SMA stenosis - she has had frequent diarrhea, Cdif negative in recent past- normal WBC - Previously treated diarrhea with Cipro and Flagyl PO and Imodium- we are not at that point currently - Follows with Dr. Jacobson History of Present Illness Chief Complaint: lightheadedness Primary Care Provider: Abiel Clark MD 81 YOF with past medical history of : Left hip replacement 03/08, CAD, HTN, HLD, Breast CA (radiation treatment only, Lumpectomy, anemia, CKD III, COPD, myopathy tremors, Afib (on Eliquis),HLD, Hypothyroidism, FE deficient anemia, proctocolitis, anorexia, GERD, Bi-polar and depression with recent admission for anorexia. She comes to the emergency room today for complaints of lightheadedness, frequent dark stools. She endorses 3-4 days of increased stools , she has some baseline loose stools at baseline. She is unsure of when she last took her Eliquis, but knows it was once today. She is noted to be tachycardic into the 130-140s in the EMD with adequate BP at her baseline 110s/70-80. In the EMD she had routine labs drawn which revealed a HGB level of 7.6 with MCV of 100. Her normal HGB/HCT is ~9.0 and platelet count of 222. Her heme test was positive in the EMD with black stool noted, but no yusra blood reported. Patient also denies any yusra bleeding or hematemesis. She does endorse some generalized burning in her epigastrium area, but denies any hematemesis or vomiting. She had a ECG done, CXR and CT of the abdomen. The CT of the abdomen again revealed non-specific colitis involving rectosigmoid similar to 04/16/21. The patient will be admitted to PCU for GI bleed, transfused 2 units of PRBC and follow her HGB and HR response. She was started on a Protonix drip following a bolus in the EMD, will continue. She will be NPO except for meds. GI has been consulted. Patient has had a multiple admissions and difficult recovery following her hip replacement in March 08; to include atrial fibrillation in which she was placed on Eliquis in March. She has had some other episodes of dark stools and mildly decreased hgb in the recent past. She had a recent EGD done secondary to thickened esophagus noted on CT scan and the EGD was normal at that time. She Also has repeatedly tested positive for COVID 19 despite having her vaccination. She has multiple positive and negative tests. She recently tested negative for COVID in May 31 and is POSITIVE on today's test. She will be admitted to isolation and retest as indicated. She is asymptomatic from a COVID perspective. Allergies Allergy/AdvReac Type Severity Reaction Status Date / Time metoclopramide Allergy Intermediate ESSENTIAL Verified 06/17/21 17:23 TREMORS clopidogrel Allergy Mild HIVES Verified 06/17/21 17:23 diazepam Allergy Mild DEPRESSION Verified 06/17/21 17:23 diltiazem Allergy Mild Light Verified 06/17/21 17:23 headed erythromycin base Allergy Mild EES, TAKES Verified 06/17/21 17:23 Z-PACKS W/O RXN gabapentin Allergy Mild States Verified 06/17/21 17:23 hands catch fire latex Allergy Mild rips skin Verified 06/17/21 17:23 off lisinopril Allergy Mild COUGH Verified 06/17/21 17:23 losartan Allergy Mild HIVES Verified 06/17/21 17:23 micafungin Allergy Mild rash Verified 06/17/21 17:23 oxycodone Allergy Mild INC. Verified 06/17/21 17:23 DEPRESSION Penicillins Allergy Mild Diarrhea Verified 06/17/21 17:23 promethazine Allergy Mild TROUBLE Verified 06/17/21 17:23 FOCUSING SPEAKING AT HIGHER DOSES Sulfa (Sulfonamide Allergy Mild SKIN Verified 06/17/21 17:23 Antibiotics) BECOMES PHOTOSENSITIVE AND BECOMES RED bupropion Allergy Unknown unknown Verified 06/17/21 17:23 dicyclomine Allergy Unknown Unknown Verified 06/17/21 17:23 potassium chloride Allergy Unknown Unknown Verified 05/08/21 19:53 sucralfate Allergy Unknown Unknown Verified 06/17/21 17:23 Vltjtgm-[id number]-Zau Reductase AdvReac Intermediate Diarrhea Verified 06/17/21 17:23 Inhibitor amoxicillin AdvReac Mild DIARRHEA Verified 06/17/21 17:23 clavulanic acid AdvReac Mild DIARRHEA Verified 06/17/21 17:23 hydrocodone AdvReac Mild "dont like Verified 06/17/21 17:23 how it makes me feel" Home Medications Medication Instructions Recorded Confirmed Type nitroglycerin 0.4 mg sublingual 0.4 mg SUBLINGUAL UD PRN 01/01/19 06/17/21 History tablet (Nitrostat) roflumilast 500 mcg tablet 500 mcg PO QAM 01/01/19 06/17/21 History Oxygen Home #1 ea 07/21/20 04/10/21 History cholecalciferol (vitamin D3) 25 25 mcg PO DAILY 01/11/21 06/17/21 History mcg (1,000 unit) capsule cyanocobalamin (vitamin B-12) 5,000 mcg PO DAILY 01/11/21 06/17/21 History 5,000 mcg capsule rosuvastatin 10 mg tablet 10 mg PO HS 01/11/21 06/17/21 History ferrous gluconate 324 mg (38 mg 324 mg PO BIDM #60 tab 03/11/21 06/17/21 Rx iron) tablet ondansetron HCl 4 mg tablet 4 mg PO Q8H PRN #6 tab 03/11/21 06/17/21 Rx (Zofran) pregabalin 75 mg capsule 75 mg PO HS #30 cap 03/11/21 06/17/21 Rx apixaban 5 mg tablet (Eliquis) 5 mg PO BID #30 tab 04/04/21 06/17/21 Rx folic acid 1 mg tablet 1 mg PO QAM #30 tab 05/31/21 06/17/21 Rx metoprolol tartrate 25 mg tablet 25 mg PO TID 30 Days #90 tab 05/31/21 06/17/21 Rx mirtazapine 15 mg tablet 15 mg PO HS #30 tab 05/31/21 06/17/21 Rx multivitamin-ferrous 1 tab PO QAM #30 tab 05/31/21 06/17/21 Rx fumarate-folic acid 18 mg-400 mcg tablet (Certavite-Antioxidant) pantoprazole 40 mg tablet,delayed 40 mg PO QAM #30 tab 05/31/21 06/17/21 Rx release potassium chloride 10 mEq 10 meq PO QAM #30 tab 05/31/21 06/17/21 Rx tablet,extended release(part/cryst) (Klor-Con M) quetiapine 100 mg tablet 100 mg PO HS #30 tab 05/31/21 06/17/21 Rx thiamine HCl (vitamin B1) 100 mg 100 mg PO QAM #30 tab 05/31/21 06/17/21 Rx tablet (Vitamin B-1) aspirin 81 mg chewable tablet 81 mg PO DAILY 06/17/21 06/17/21 History famotidine 20 mg tablet 20 mg PO BIDM 06/17/21 06/17/21 History lamotrigine 100 mg tablet 100 mg PO DAILY 06/17/21 06/17/21 History (Lamictal) loperamide 2 mg tablet 2 mg PO TID 06/17/21 06/17/21 History Past Med/Surg History Medical History Anemia REASON FOR COLONOSCOPY 07/2019 Atrial fibrillation Atrial fibrillation with rapid ventricular response Bipolar 1 disorder Breast cancer (08/23/14) "Abnormal bilateral mammogram Status post core needle biopsy 08/23/2014 revealing intraductal papilloma on the left Right breast showed invasive ductal carcinoma Status post right lumpectomy and sentinel lymph node biopsy 10/08/2014 Stage [id number] Status post completion of radiation therapy 12/24/2014 utilizing hypo- fractionation received 5000 cGy" Breast cancer, right 2013--stage 1--lumpectomy and radiation Change in vision Chronic obstructive pulmonary disease inhaler daily Closed fracture of left hip Degenerative joint disease Depression Elevated troponin I level Fall Folate deficiency anemia GERD (gastroesophageal reflux disease) Heme + stool History of colon polyps Hyperlipidemia Hypertension Hypokalemia Hypothyroidism Medical marijuana use Myocardial Infarction "silent" in --follows with Dr. Gibbs On home oxygen therapy 2L N/C at hs Pancreatitis hx of Papilloma of breast left Sleep apnea Temporal arteritis Unstable angina Unstable angina Surgical History History of bilateral cataract extraction History of bilateral tubal ligation History of breast surgery removal of papilloma of left breast History of cardiac cath x3--last ---no stents History of cholecystectomy History of colonoscopy History of esophagogastroduodenoscopy (EGD) History of lumpectomy of right breast History of right breast biopsy malignant History of tooth extraction all teeth removed History of total hysterectomy with bilateral salpingo-oophorectomy (BSO) Family History Grandfather (Paternal) Family history of diabetes mellitus Other No family history of adverse response to anesthesia Social History Smoking Status: Former smoker Cigarettes Per Day: 20 a day; Second Hand Exposure: No; Hx Alcohol Use: No Hx Substance Use: No Preferred Language: Amharic Communication Ability: Effective Surgeon/President Required: No Beliefs That Will Affect Care: None Current Living Situation: Family Other Information That Helps Us Care for You: No Feels Safe at Home: Yes Safety Concerns: Feels Safe At This Time Assistive Devices: Denture - Upper, Denture - Lower, Oxygen - at Night, Walker and Wheelchair Review of Systems Review of Systems: REVIEW OF SYSTEMS: Constitutional: No fever, sweats or chills, (+) chronic tremor Eyes: No diplopia, no worsening or blurred vision ENT: normal hearing, no trouble swallowing Respiratory: No cough, sputum, dyspnea at rest or on exertion Cardiovascular: No chest pain, tightness or palpitations Abdomen: (+) burning, nasuea, loose stools, No vomiting, constipation Musculoskeletal: No joint pain, calf pain, swelling Neurologic: (+) tremor, No weakness, numbness/tingling, or balance problems Psychiatric: (+) depression, bi-polar, aneorexia Skin: No rash or itch Physical Exam Physical Exam: PHYSICAL EXAM: General: awake, alert, anxious Head: Normocephalic, atraumatic ENT: PERRL, EOMI, no pharyngeal exudate, mucous membranes moist Neuro: AAO x 3, speech clear and appropriate, strength intact bilaterally 5/5, sensation intact and equal all extremities and dermatomes, no pronator drift Chest: equal rise and fall of the chest, no accessory muscle use, no heaves or thrills, Clear to auscultation, on room air, Cardiac: irregular rate and rhythm, telemetry reviewed- afib 110-140, skin warm dry, cap refill <3 seconds, peripheral pulses +2 no JVD, no murmur, no edema GI: NABS x 4 quadrants, soft, nontender to palpation, no rebound, guarding or tenderness, no epigastric pain with palpation : Spontaneously voiding, no pain, no CVA tenderness, Extremities: Normal inspection, no peripheral edema or erythema, calfs nontender to palpation Psych: anxious Skin: no rash or erythema Results & Data Results & Data ([facility]) Vital Signs (Past 12 Hours) Vital Signs Temp Pulse Resp BP Pulse Ox 06/17/21 17:30 122 H 29 H 116/84 06/17/21 17:25 121 H 20 06/17/21 15:58 37.4 C 139 H 26 H 116/79 98 06/17/21 15:54 142 H 26 H 116/79 90 Laboratory Results Abnormal Labs 06/17/21 06/17/21 06/17/21 16:20 16:20 16:49 RBC 2.47 L Hgb 7.6 L Hct 24.7 L MCHC 30.8 L RDW Std Deviation 59.8 H RDW Coeff of Gino 16.4 H Stephens # (Auto) 0.64 H Chloride 114 H BUN 30 H Creatinine 1.33 H BUN/Creatinine Ratio 22.5 H Glucose 106 H Calcium 8.4 L Total Protein 5.7 L Albumin 2.4 L Albumin/Globulin Ratio 0.7 L Lipase 52 L SARS-CoV-2 (PCR) Crossmatch See Detail 06/17/21 16:51 RBC Hgb Hct MCHC RDW Std Deviation RDW Coeff of Gino Stephens # (Auto) Chloride BUN Creatinine BUN/Creatinine Ratio Glucose Calcium Total Protein Albumin Albumin/Globulin Ratio Lipase SARS-CoV-2 (PCR) POSITIVE A* Crossmatch Diagnostic Findings Abdomen/Pelvis CT 06/17/21 16:03 CT SCAN OF THE ABDOMEN AND PELVIS WITH IV CONTRAST CLINICAL HISTORY: Generalized abdominal pain. COMPARISON STUDY: Abdominal CT dated CT scans dated 05/19/2021 and 04/16/2021. TECHNIQUE: Following the IV administration of 94 cc of Optiray 320, CT scan of the abdomen and pelvis is performed from the lung bases to the proximal femora. Images are reviewed in the axial, sagittal, and coronal planes. IV contrast was administered without complication. A dose lowering technique was utilized adhering to the principles of ALARA. The examination is modestly degraded by motion artifact. CT DOSE: 296.50 mGy.cm FINDINGS: Lung bases: The heart is mildly enlarged and without pericardial effusion. The coronary arteries are densely calcified. Emphysematous change is noted. There is trace right pleural effusion and bibasilar atelectasis. A small hiatal hernia is noted. Liver: The contrast-enhanced liver is normal in size and contour. The liver demonstrates diffusely diminished attenuation consistent with hepatic steatosis. There is mild central intrahepatic biliary ductal dilatation. The hepatic veins and portal veins are patent. Gallbladder: Surgically absent noting clips in the gallbladder fossa. Spleen: Normal in size and attenuation. Pancreas: Moderately atrophic and grossly unremarkable. Adrenal glands: Unremarkable. Kidneys: The contrast enhanced kidneys demonstrate cortical atrophy and are without hydronephrosis. A 2.5 cm cyst is noted in the interpolar left kidney. The kidneys enhance symmetrically. Abdominal vasculature: The abdominal aorta is normal in course and caliber noting advanced atherosclerotic calcification. There is advanced atherosclerotic plaque seen involving the superior mesenteric artery. Bowel: Again seen is wall thickening and edema of the rectosigmoid colon with faint surrounding infiltration. This is consistent with a nonspecific proctocolitis. There is no bowel obstruction. There are scattered colonic diverticula without CT evidence of acute diverticulitis. The left colon is relatively decompressed. The appendix is well-visualized and normal. Peritoneum: There is no intraperitoneal free air or abdominal ascites Lymphadenopathy: None. Pelvic viscera: The bladder is normal as visualized noting small dependent bladder calculi. The uterus is surgically absent. No adnexal lesion is seen Skeletal structures: The skeletal structures are osteopenic. There is mild lumbosacral spondylosis. No lytic or blastic lesions are seen. Chronic posttraumatic deformity and postoperative change is partially visualized in the left proximal femur. IMPRESSION: 1. Findings are consistent with a nonspecific proctocolitis involving the rectosigmoid. This is similar to the 04/16/2021 examination. 2. Trace right pleural effusion. 3. Emphysema. 4. Small bladder calculi are noted. 5. Additional findings as above. Electronically signed by: Doug Mancilla M.D. 06/17/2021 5:32 PM Chest X-Ray 06/17/21 16:07 SINGLE VIEW CHEST CLINICAL HISTORY: Atrial fibrillation. FINDINGS: An AP, portable, upright chest radiograph is compared to study dated 05/08/2021. Correlation is made with chest CT dated 08/15/2018. The heart is mildly enlarged noting atherosclerotic calcification of the thoracic aorta. The pulmonary vasculature is noncongested. Emphysema and chronic interstitial thickening is similar to previous. No airspace consolidation or large pleural effusion is identified. No pneumothorax is seen. The skeletal structures are osteopenic. The bony thorax is grossly intact. IMPRESSION: Cardiomegaly and emphysema with no acute cardiopulmonary abnormality. Electronically signed by: Doug Mancilla M.D. 06/17/2021 5:01 PM Medications Administered Pantoprazole Sodium 40 mg/ (Dextrose) 100 mls @ 20 mls/hr IV Q5H JANINE Stop: 07/17/21 16:29 Last Admin: 06/17/21 17:33 Dose: 8 mg/hr, 20 mls/hr Documented by: [id number] Discontinued Medications Sodium Chloride (Nss 1000ml) 1,000 mls @ 999 mls/hr IV .Q1H1M ONE Stop: 06/17/21 17:03 Last Infusion: 06/17/21 18:27 Dose: 0 mls/hr Documented by: [id number] Admin: 06/17/21 17:04 Dose: 999 mls/hr Documented by: [id number] Pantoprazole Sodium (Protonix Bolus/Drip) 0 mls @ 1 mls/hr IV ONE STA Stop: 06/17/21 16:07 Last Admin: 06/17/21 17:09 Dose: 1 mls/hr Documented by: [id number] Pantoprazole Sodium 80 mg/ (Dextrose) 120 mls @ 400 mls/hr IV NOW ONE Stop: 06/17/21 16:23 Last Infusion: 06/17/21 17:33 Dose: 0 mls/hr Documented by: [id number] Admin: 06/17/21 17:04 Dose: 400 mls/hr Documented by: [id number] Ioversol (Optiray 320 100ml) 94 ml IV ONCE ONE Stop: 06/17/21 17:10 Last Admin: 06/17/21 17:10 Dose: 1 ml Documented by: [id number] ECG Additional Comments: Atrial fibrillation with rapid ventricular response ST & T wave abnormality, consider inferolateral ischemia Abnormal ECG When compared with ECG of 23-MAY-2021 19:35, Vent. rate has increased BY 50 BPM T wave inversion now evident in Inferior leads Code Status & VTE Plan Code Status CODE: FULL VTE: SCD's, chemoprophylaxis on hold VTE Prophylaxis Plan VTE Prophylaxis will be ordered: Yes Supervising Physician Co-Signing Physician Notes During my face to face encounter with the patient, I obtained a histroy and physical examination I discussed plan of care with patient and BARRINGTON Dutta. I agree with above note. Patient will be admitted and placed on protonix and will transfuse PRBC for likely Upper GI bleed. Will jasbir 2 18 gauge IV access PG Care Time/CCT Total # of Minutes Spent Total Time Spent with Patient: Total time spent is greater than 50% in coordination of care (as documented) at patient's floor/unit and/or counseling patient: Coding Level of Care Code 27340 Initial Inpt Care Lvl 3 Diagnoses GI bleed K92.2 Atrial fibrillation I48.91 CAD (coronary artery disease) I25.10 Hypertension I10 Hypertension type: essential hypertension Hyperlipidemia E78.5 Hyperlipidemia type: unspecified Iron (Fe) deficiency anemia D50.9 Iron deficiency anemia type: unspecified iron deficiency COPD (chronic obstructive pulmonary disease) J44.9 COPD type: unspecified COPD Depression F32.[address] of the abdomen R93.5 (1) Hyperlipidemia Hyperlipidemia type: unspecified Qualified Code(s): E78.5 - Hyperlipidemia, unspecified (2) Iron (Fe) deficiency anemia Iron deficiency anemia type: unspecified iron deficiency Qualified Code(s): D50.9 - Iron deficiency anemia, unspecified (3) COPD (chronic obstructive pulmonary disease) COPD type: unspecified COPD Qualified Code(s): J44.9 - Chronic obstructive pulmonary disease, unspecified (4) Hypertension Hypertension type: essential hypertension Qualified Code(s): I10 - Essential (primary) hypertension
[2021-06-17] MEDS ORDERED: ONDANSETRON 4 MG OD TAB PO PRN (19:42)
[2021-06-17] MEDS ORDERED: NITROGLYCERIN SL 0.4 MG/TAB TAB SL PRN (19:42)
[2021-06-17] MEDS ORDERED: POLYETHYLENE (MIRALAX) 17 GM PACK PO PRN (19:42)
[2021-06-17] MEDS ORDERED: ACETAMINOPHEN 325 MG TAB PO PRN (19:42)
[2021-06-17 20:03] LABS: C Reactive Protein < 0.29 mg/dl (0-0.29)
[2021-06-17 20:55] LABS: Fibrinogen 257 mg/dl (184-400); INR 1.3 (0.9-1.1)
[2021-06-17] MEDS: ROSUVASTATIN CALCIUM 10 MG TAB PO SCH (21:47)
[2021-06-17] MEDS: MIRTAZAPINE TAB 15 MG TAB PO SCH (21:47)
[2021-06-17] MEDS: PREGABALIN 75 MG CAP PO SCH (21:47)
[2021-06-17] MEDS: QUEtiapine FUMARATE 100 MG TABLET PO SCH (21:47)
[2021-06-17] MEDS: METOPROLOL TARTRATE 1 MG/ML VIAL IV PRN (21:47)
[2021-06-17] MEDS ORDERED: CALCIUM GLUCONATE 10% 1,000 MG in SODIUM CHLORIDE 0.9% 50 ML IV ONE (22:25)
[2021-06-17] MEDS: METOPROLOL TARTRATE 25 MG TAB PO SCH (22:57)
[2021-06-18] MEDS: METOPROLOL TARTRATE 1 MG/ML VIAL IV PRN (04:14)
[2021-06-18 05:18] LABS: Basophils # (auto) 0.03 K/uL (0-0.2); Basophils % (auto) 0.6 %; Eosinophils % (auto) 3.9 %; Hematocrit (blood only) 28.1 % (37-47); Hemoglobin 8.9 g/dL (12.0-16.0); Immature Granulocytes # (auto) 0.01 K/uL (0.00-0.02); Immature Granulocytes % (auto) 0.2 %; Lymphocytes # (auto) 2.01 K/uL (1.2-3.4); Lymphocytes % (auto) 39.6 %; Mean Corpuscular Hgb Conc 31.7 g/dL (32-36); Mean Corpuscular Volume 94.6 fL (80-100); Mean Platelet Volume 9.9 fL (7.4-10.4); Monocytes # (auto) 0.51 K/uL (0.11-0.59); Neutrophils # (auto) 2.32 K/uL (1.4-6.5); Neutrophils % (auto) 45.7 %; Platelet Count 155 K/uL (130-400); RDW Standard Deviation 60.7 fL (36.4-46.3); Red Blood Count 2.97 M/uL (4.2-5.4); White Blood Count 5.08 K/uL (4.8-10.8)
[2021-06-18 05:59] LABS: BUN Creatinine Ratio 24.4 (10-20); Calcium 8.2 mg/dl (8.5-10.1); Creatinine Clr Calc Pharmacy 37.7 ml/min; Est GFR (African American) 61.3 ml/min; Est GFR (Non-African American) 52.9 ml/min; Potassium 3.8 mmol/L (3.5-5.1); Troponin I 0.031 ng/ml (0-0.045)
--- NOTE | 2021-06-18 08:11 | Electrocardiogram Report ---
Test Reason : Blood Pressure : / mmHG Vent. Rate : 134 BPM Atrial Rate : 131 BPM P-R Int : 000 ms QRS Dur : 088 ms QT Int : 324 ms P-R-T Axes : 000 044 211 degrees QTc Int : 483 ms Atrial fibrillation with rapid ventricular response Diffuse Nonspecific ST and T wave abnormality Abnormal ECG When compared with ECG of 17-JUN-2021 16:30, No significant change was found Confirmed by Dominick Isabel ([id number]) on 06/18/2021 8:11:05 AM Referred By: REFERRED SELF Confirmed By:Dominick Isabel
--- NOTE | 2021-06-18 08:11 | Electrocardiogram Report ---
Test Reason : Blood Pressure : / mmHG Vent. Rate : 139 BPM Atrial Rate : 110 BPM P-R Int : 000 ms QRS Dur : 084 ms QT Int : 318 ms P-R-T Axes : 000 039 236 degrees QTc Int : 483 ms Atrial fibrillation with rapid ventricular response Abnormal ECG When compared with ECG of 23-MAY-2021 19:35, Vent. rate has increased BY 50 BPM Otherwise no significant change Confirmed by Dominick Isabel ([id number]) on 06/18/2021 8:10:46 AM Referred By: REFERRED SELF Confirmed By:Dominick Isabel
[2021-06-18] MEDS: THIAMINE HCL 100 MG TAB PO SCH (08:50)
[2021-06-18] MEDS: ROFLUMILAST 500 MCG TAB PO SCH (08:50)
[2021-06-18] MEDS: FAMOTIDINE 20 MG TAB PO SCH ×2 (08:50→17:51)
[2021-06-18] MEDS: METOPROLOL TARTRATE 25 MG TAB PO SCH ×4 (08:51→21:16)
[2021-06-18] MEDS: lamoTRIgine 100 MG TAB PO SCH (08:51)
[2021-06-18] MEDS: PANTOprazole 40 MG in SYRINGE 0 ML IV SCH ×2 (08:59→21:59)
--- NOTE | 2021-06-18 16:16 | Gastroenterology Progress Note ---
Date of Service June 18, 2021 Assessment & Plan (1) Anemia: (2) GI bleed: (3) Folate deficiency anemia: (4) Abnormal CT of the abdomen: Plan: Ipression is that there is new GI bleeding in this case, probably from an upper GI source. Stool appears melenic and the BUN is elevated, suggesting an upper GI source. An EGD in March 2021 was normal. She has recently been taking Coumadin, then Eliquis for management of A fib., and custodial low dose aspirin for management of CAD. There is also a recent history of left sided proctocolitis, so this could be the source of bleeding, but the observed blood is more consistent with an UGI source. 3 Covid-19 PCR tests were positive in the past 2 months, and 2 other test were negative. PCR testing yesterday initially reported as positive, is now being interpreted as negative. Following transfusion, the patient is hemodynamically stable, and there is no indication for urgent endoscopy at this time. I recommend switching the Protonix to bolus IV administration, advancing to a clear liquid diet today. Hold both aspirin and Eliquis. Arrange for upper endoscopy and unprepped flexible sigmoidoscopy tomorrow. These recommendations were discussed with the patient and spouse, all questions were answered, understanding was acknowledged, and verbal consent obtained Admission and Anticipated Discharge Date Admission Date: June 17, 2021 Subjective The patient was evaluated today and the consultation was dictated using the dictation system. The patient was admitted for symptomatic anemia and was found to have GI bleeding. The patient stated that recent stools were very dark, and there was also visible dark red blood present. ER staff and nursing staff have reported melenic stools and very dark burgundy stool. Review of Systems Constitutional: No fever, chills. Positive for lightheadedness, malaise, fatigue Respiratory: Patient denies dyspnea, cough, sputum production Cardiovascular: Additional Comments: Patient denies chest pain Gastrointestinal: Patient has history of infrequent heartburn, controlled with Dexilant. She has had recent lower abdominal cramping and diarrhea with dark stools Neurologic: No headaches, localized weakness Physical Exam Gastrointestinal (Abdomen): Percussion/Palpation: abdomen soft; no guarding, no hepatomegaly, no splenomegaly, no abdominal mass and no pulsatile mass Rectal Exam: + hemorrhoids and + stool abnormal Mild tenderness in the RUQ. Perianal inspection reveals skin tags and Grade I external hemorrhoids, no prolapse. The observed stool appears melenic, with smears of very dark red blood. Neurologic: No focal neurologic signs Results & Data ([facility]) Vital Signs (Past 12 Hours) Vital Signs Temp Pulse Pulse Resp BP BP Pulse Ox 06/18/21 15:32 105 H 06/18/21 12:01 36.4 C L 113 H 17 109/72 97 06/18/21 07:56 36.5 C 123 H 18 102/57 L 98 06/18/21 07:48 112 H 06/18/21 06:09 103 H 92/59 L 06/18/21 04:14 111 H 132/87 06/18/21 04:05 36.5 C 120 H 14 132/87 100 (1) Anemia Anemia type: unspecified type Qualified Code(s): D64.9 - Anemia, unspecified
[2021-06-18 17:09] LABS: Hematocrit (blood only) 31.2 % (37-47); Hemoglobin 9.8 g/dL (12.0-16.0)
--- NOTE | 2021-06-18 20:40 | Hospitalist Progress Note ---
Date of Service June 18, 2021 Assessment & Plan (1) GI bleed: Plan: Presumed UGI with dark stools, Heme positive in the EMD, HGB 7.6, tachycardia, elevated BUN - Blatchford score 11 - Protonix drip started in emd- continue- consider changing to BID dosing in morning - NPO except Meds/ will be clears in PM. - S/P 2 units PRBC Hemoglobin now 9.8 - Currently warm, well perfused, pulses strong - GI consulted: upper GI scope and sigmoidoscopy for tomorrow. - Obtained 18 gauge or larger for transfusion - Calcium Gluconate 1GM following blood transfusion - Eliquis taken earlier on day of admissionat some point- will not reverse as not life-threatening or acute hemmorhage on CT scan or clinical - (2) Atrial fibrillation: Plan: Usual HR 90-110 she thinks she took her medications this morning - HR 120-140 resuscitate follow HR response -HR now 105-120 -On metotprolol QID. -may consider low dose diltiazem if HR remains elevated. - - Hold eliquis- will not reverse as transfusion and time will clear (3) CAD (coronary artery disease): Plan: Multivessel CAD: RCA, LCX, LAD, L-main and ramus - Cardiac cath 2001 and 2006 collateral flow with medical management - Continue statin - Metoprolol for rate control- as long as she remains hemodynamically stable with BP (4) Hypertension: Plan: Controlled - Hold as above until hemodynamic proven - will continue metoprolol (5) Hyperlipidemia: Plan: Continue statin (6) Iron (Fe) deficiency anemia: Plan: Is on iron replacement as outpatient - MCV 100 (7) COPD (chronic obstructive pulmonary disease): Plan: Stable no frequent exacerbations - Continue roflumilast, (8) Depression: Plan: Continue quetiapine (9) Abnormal CT of the abdomen: Plan: Chronic proctocolitis with SMA stenosis - she has had frequent diarrhea, Cdif negative in recent past- normal WBC - Previously treated diarrhea with Cipro and Flagyl PO and Imodium- we are not at that point currently - Follows with [facility] GI Admission and Anticipated Discharge Date Admission Date: June 17, 2021 Subjective Patient reports feeling better. Less fatigued. Review of Systems Review of Systems: Constitutional: No fever, sweats or chills, (+) chronic tremor Eyes: No diplopia, no worsening or blurred vision ENT: normal hearing, no trouble swallowing Respiratory: No cough, sputum, dyspnea at rest or on exertion Cardiovascular: No chest pain, tightness or palpitations Abdomen: (+) burning, nasuea, loose stools, No vomiting, constipation Musculoskeletal: No joint pain, calf pain, swelling Neurologic: (+) tremor, No weakness, numbness/tingling, or balance problems Psychiatric: (+) depression, bi-polar, aneorexia Skin: No rash or itch Physical Exam Physical Exam: General: awake, alert, anxious Head: Normocephalic, atraumatic ENT: PERRL, EOMI, no pharyngeal exudate, mucous membranes moist Neuro: AAO x 3, speech clear and appropriate, strength intact bilaterally 5/5, sensation intact and equal all extremities and dermatomes, no pronator drift Chest: equal rise and fall of the chest, no accessory muscle use, no heaves or thrills, Clear to auscultation, on room air, Cardiac: irregular rate and rhythm, telemetry reviewed- afib 110-140, skin warm dry, cap refill <3 seconds, peripheral pulses +2 no JVD, no murmur, no edema GI: NABS x 4 quadrants, soft, nontender to palpation, no rebound, guarding or tenderness, no epigastric pain with palpation : Spontaneously voiding, no pain, no CVA tenderness, Extremities: Normal inspection, no peripheral edema or erythema, calfs nontender to palpation Psych: anxious Skin: no rash or erythema, no longer pale Results & Data Results & Data ([facility]) Vital Signs (Past 12 Hours) Vital Signs Temp Pulse Pulse Pulse Resp BP Pulse Ox 06/18/21 15:49 36.6 C 117 H 26 H 108/65 93 06/18/21 15:32 105 H 06/18/21 12:01 36.4 C L 113 H 17 109/72 97 PG Care Time/CCT Total # of Minutes Spent Total Time Spent with Patient: Total time spent is greater than 50% in coordination of care (as documented) at patient's floor/unit and/or counseling patient: Coding Level of Care Code 78052 Subseq Hosp Care Lvl 3 Diagnoses GI bleed K92.2 Atrial fibrillation I48.91 CAD (coronary artery disease) I25.10 Hypertension I10 Hypertension type: essential hypertension Hyperlipidemia E78.5 Hyperlipidemia type: unspecified Iron (Fe) deficiency anemia D50.9 Iron deficiency anemia type: unspecified iron deficiency COPD (chronic obstructive pulmonary disease) J44.9 COPD type: unspecified COPD Depression F32.[address] of the abdomen R93.5 Time Spent (min) 35 (1) Hyperlipidemia Hyperlipidemia type: unspecified Qualified Code(s): E78.5 - Hyperlipidemia, unspecified (2) Iron (Fe) deficiency anemia Iron deficiency anemia type: unspecified iron deficiency Qualified Code(s): D50.9 - Iron deficiency anemia, unspecified (3) COPD (chronic obstructive pulmonary disease) COPD type: unspecified COPD Qualified Code(s): J44.9 - Chronic obstructive pulmonary disease, unspecified (4) Hypertension Hypertension type: essential hypertension Qualified Code(s): I10 - Essential (primary) hypertension
[2021-06-18] MEDS: PREGABALIN 75 MG CAP PO SCH (21:16)
[2021-06-18] MEDS: ROSUVASTATIN CALCIUM 10 MG TAB PO SCH (21:16)
[2021-06-18] MEDS: MIRTAZAPINE TAB 15 MG TAB PO SCH (21:16)
[2021-06-18] MEDS: QUEtiapine FUMARATE 100 MG TABLET PO SCH (21:16)
[2021-06-19] MEDS: METOPROLOL TARTRATE 1 MG/ML VIAL IV PRN (05:22)
[2021-06-19 07:30] LABS: Basophils # (auto) 0.07 K/uL (0-0.2); Basophils % (auto) 1.4 %; Eosinophils # (auto) 0.33 K/uL (0-0.5); Eosinophils % (auto) 6.4 %; Hematocrit (blood only) 33.3 % (37-47); Hemoglobin 10.3 g/dL (12.0-16.0); Lymphocytes % (auto) 40.9 %; Mean Corpuscular Hemoglobin 29.4 pg (25-34); Mean Corpuscular Hgb Conc 30.9 g/dL (32-36); Mean Corpuscular Volume 95.1 fL (80-100); Mean Platelet Volume 10.2 fL (7.4-10.4); Monocytes # (auto) 0.58 K/uL (0.11-0.59); Monocytes % (auto) 11.3 %; Neutrophils # (auto) 2.06 K/uL (1.4-6.5); Platelet Count 167 K/uL (130-400); RDW Coefficient of Variation 18.6 % (11.5-14.5); RDW Standard Deviation 63.5 fL (36.4-46.3); White Blood Count 5.14 K/uL (4.8-10.8)
[2021-06-19 08:01] LABS: BUN Creatinine Ratio 17.9 (10-20); Calcium 8.3 mg/dl (8.5-10.1); Creatinine Clr Calc Pharmacy 39.5 ml/min; Magnesium 2.1 mg/dl (1.8-2.4); Potassium 3.7 mmol/L (3.5-5.1)
--- NOTE | 2021-06-19 08:09 | Gastroenterology Progress Note ---
Date of Service June 19, 2021 Assessment & Plan (1) Acute GI bleeding: Plan: The patient has had decreased melena since admission. Hgb/Hct stable after transfusion. NPO this morning for procedure. Plan is EGD and flexible sigmoidoscopy today. Continue IV Protonix. Please refer to supervising physician addendum for further recommendations. Admission and Anticipated Discharge Date Admission Date: June 17, 2021 Subjective Patient sleeping this morning. Awakes easily with verbal stimuli. Covid precautions removed 06/17/2021. Nursing reports no significant complaints this morning. One small smear of stool that was black overnight. Denies abdominal pain, nausea, vomiting. Patient is pleasant but frustrated by the last several months being in and out of the hospital. Agreeable to procedures reviewed with Dr. Mcfarland. Review of Systems Review of Systems: All systems reviewed & are unremarkable except as noted in Subjective Physical Exam Gastrointestinal (Abdomen): Inspection/Auscultation: abdomen normal to inspection and normal bowel sounds; abdomen not distended Percussion/Palpation: abdomen soft; abdomen nontender, no guarding and abdomen not rigid Results & Data ([facility]) Vital Signs (Past 12 Hours) Vital Signs Temp Pulse Pulse Resp BP BP Pulse Ox 06/19/21 05:22 131 H 107/79 06/19/21 04:23 36.5 C 106 H 13 107/79 98 06/19/21 00:00 36.5 C 97 H 15 95/53 L 94 06/18/21 22:10 120 H Laboratory Results - last 24 hr 06/18/21 06/19/21 06/19/21 16:40 06:23 06:23 WBC 5.14 RBC 3.50 L Hgb 9.8 L 10.3 L Hct 31.2 L 33.3 L MCV 95.1 MCH 29.4 MCHC 30.9 L RDW Std Deviation 63.5 H RDW Coeff of Gino 18.6 H Plt Count 167 MPV 10.2 Immature Gran % (Auto) 0.0 Neut % (Auto) 40.0 Lymph % (Auto) 40.9 [place] % (Auto) 11.3 Eos % (Auto) 6.4 Baso % (Auto) 1.4 Neut # (Auto) 2.06 Lymph # (Auto) 2.10 [place] # (Auto) 0.58 Eos # (Auto) 0.33 Baso # (Auto) 0.07 Immature Gran # (Auto) 0.00 Sodium 145 Potassium 3.7 Chloride 115 H Carbon Dioxide 24 Anion Gap 6.0 BUN 17 Creatinine 0.95 Est Cr Clr Drug Dosing 39.5 Est GFR ( Amer) 66.0 Est GFR (Non-Af Amer) 57.0 BUN/Creatinine Ratio 17.9 Glucose 60 L Calcium 8.3 L Magnesium 2.1
--- NOTE | 2021-06-19 08:15 | Consultation Report ---
CHIEF COMPLAINT: Lightheadedness and fatigue. HISTORY OF PRESENT ILLNESS: The patient is a 81-year-old woman admitted to the hospital in the [facility] of 06/17/2021 because of progressive weakness and lightheadedness. In the emergency room, she was found to be severely anemic and to have heme-positive stool and was admitted for GI bleeding. The p atient noted darkening of her stools prior to admission, but not frankly black stools. She also note d some red blood in her stool. She was taking Eliquis and prior to this, she was taking Coumadin for management of atrial fibrillation. She was also taking aspirin 81 mg per day for many years. She d enied any use of nonsteroidal anti-inflammatory drugs. She denied any previous history of GI bleedin g. PAST MEDICAL HISTORY: The patient has a past medical history or recent medical history of left sided proctocolitis detected by CT scan on the day of admission and also on the CT scan done around a kelvin h prior to admission. She was on no specific medical treatment for this. She had a colonoscopy in which only showed diverticulosis, uncomplicated, and no evidence of colitis and no biopsies wer e performed at that time. Once again, there is no history of upper GI bleeding. She had an upper en doscopy in March at the [facility] performed by Dr. Garcia. This was an entirely norm al examination with no esophagitis, gastritis or duodenitis or any ulcers or bleeding lesions detecte d. At admission, her hemoglobin was noted to be less than 7 with a hematocrit below 24% and she was gonzalez sfused with packed red blood cells. Review of previous complete blood count reveals that her usual h emoglobin is in the 9-10 range. Also, at the time of admission a COVID-19 PCR test was done, which w as positive and she had 2 previous positive tests done within the last 2 months. She also has had ne gative tests performed in the last 2 months. As of the afternoon of 06/18/2021 she was told that her COVID testing was negative and that isolation was not necessary. The remainder of the past medical history is notable for atrial fibrillation which is a recent diagno sis and for which she was taking Coumadin and is now taking Eliquis. Her last dose of Eliquis was on 06/17/2021. She has a history of multivessel coronary artery disease, had cardiac catheterization i n 2001 and 2006 with collateral flow demonstrated. There is a history of hypertension, hyperlipidemi a, chronic anemia with macrocytic indices, chronic obstructive pulmonary disease, and depression for which she is being treated with quetiapine. There is also a recent history of chronic proctocolitis with frequent episodes of diarrhea, urgency and cramping. Negative C. difficile test in the recent p ast and a longstanding history of irritable bowel syndrome. SOCIAL HISTORY: She is a former smoker, does not use alcohol or illicit drugs. PHYSICAL EXAMINATION: The physical examination on the afternoon of 06/18/2021 was limited to the abd omen and anal inspection. The abdominal examination revealed some tenderness in the right upper quad rant without rebound tenderness. There were no peritoneal signs. There was no distention. There wa s no guarding. Anal inspection revealed what appeared to be melenic stool, which also had some dark red elements to it, but it was definitely not stool that you would associate with bleeding from the l eft side of the lower GI tract and more consistent with bleeding from the upper GI tract. In addition to this finding, the BUN was elevated above its usual levels, which suggested upper GI bleeding as t he source of bleeding. IMPRESSION AND PLAN: It appears that the patient, with no history of upper GI bleeding or any upper GI bleeding lesions, is admitted with what appears to be an upper GI source of bleeding. She also meza s proctosigmoiditis, which has developed within the past few months, which could be another source of bleeding, but the blood that I see today is more likely to be coming from the upper GI tract. The ca use of the chronic proctocolitis is uncertain. The CAT scan shows extensive calcifications in the sellers perior mesenteric artery. There is no mention made of the inferior mesenteric artery. It could be t hat this proctocolitis could be a chronic ischemic change in the colon. In any case, the patient is hemodynamically stable and I do not see any reason to perform urgent upper endoscopy or sigmoidoscopy in this case. Therefore, these procedures are deferred to tomorrow regular weekday. I recommend co ntinuing the Protonix as a bolus of 40 mg twice daily rather than a drip, both are equally effective. Aspirin and Eliquis should be held. She should continue to be monitored for bleeding. She no long er requires isolation and her diet should be limited to clear liquids. Further recommendations will follow the results of the upper endoscopy and colonoscopy to be performe d tomorrow. Job ID: [id number]
--- NOTE | 2021-06-19 08:28 | Electrocardiogram Report ---
Test Reason : Blood Pressure : / mmHG Vent. Rate : 123 BPM Atrial Rate : 147 BPM P-R Int : 000 ms QRS Dur : 084 ms QT Int : 322 ms P-R-T Axes : 000 044 212 degrees QTc Int : 460 ms Poor data quality, interpretation may be adversely affected Atrial fibrillation with rapid ventricular response Diffuse Nonspecific ST and T wave abnormality Abnormal ECG When compared with ECG of 18-JUN-2021 04:00, No significant change was found Confirmed by Dominick Isabel ([id number]) on 06/19/2021 8:28:18 AM Referred By: REFERRED SELF Confirmed By:Dominick Isabel
[2021-06-19] MEDS: PANTOprazole 40 MG in SYRINGE 0 ML IV SCH ×2 (08:48→20:02)
[2021-06-19] MEDS: FAMOTIDINE 20 MG TAB PO SCH ×2 (08:50→16:15)
[2021-06-19] MEDS: lamoTRIgine 100 MG TAB PO SCH (08:50)
[2021-06-19] MEDS: THIAMINE HCL 100 MG TAB PO SCH (08:50)
[2021-06-19] MEDS: ROFLUMILAST 500 MCG TAB PO SCH (08:50)
[2021-06-19] MEDS: METOPROLOL TARTRATE 25 MG TAB PO SCH ×4 (09:03→20:05)
--- NOTE | 2021-06-19 10:03 | Hospitalist Progress Note ---
Date of Service June 19, 2021 Assessment & Plan (1) GI bleed: Plan: Presumed UGI with dark stools, Heme positive in the EMD, HGB 7.6, tachycardia, elevated BUN - Blatchford score 11 - Protonix, initially on drip, change to 40mg PO daily - resume diet - S/P 2 units PRBC Hemoglobin now 10.3 - GI consulted: EGD 06/19 with no signs of bleeding hold Eliquis for time being (2) Atrial fibrillation: Plan: Usual HR 90-110 -copntinue metotprolol 25 QID. - Hold eliquis (3) CAD (coronary artery disease): Plan: Multivessel CAD: RCA, LCX, LAD, L-main and ramus - Cardiac cath 2001 and 2006 collateral flow with medical management - Continue statin - Metoprolol for rate control- as long as she remains hemodynamically stable with BP (4) Hypertension: Plan: Controlled - Hold as above until hemodynamic proven - will continue metoprolol (5) Hyperlipidemia: Plan: Continue statin (6) Iron (Fe) deficiency anemia: Plan: Is on iron replacement as outpatient - MCV 100 (7) COPD (chronic obstructive pulmonary disease): Plan: Stable no frequent exacerbations - Continue roflumilast, (8) Depression: Plan: Continue quetiapine mood stable today, making jokes (9) Abnormal CT of the abdomen: Plan: Chronic proctocolitis with SMA stenosis - she has had frequent diarrhea, Cdif negative in recent past- normal WBC - Previously treated diarrhea with Cipro and Flagyl PO and Imodium- we are not at that point currently - Follows with [facility] GI Admission and Anticipated Discharge Date Admission Date: June 17, 2021 Subjective patient doing reasonably well, no further signs of bleeding, H/H stable no abdominal pain, no chest pain, no dyspnea had EGD, no signs of bleeding HR elevated on monitor, better with taking metoprolol patient reports that she continues to have issues with her appetite her left hip pain is better than it has been in the past reviewed chart and labs Review of Systems Review of Systems: All systems reviewed & are unremarkable except as noted in Subjective Physical Exam Constitutional: well developed, + frail appearing and comfortable; no acute distress Neck: trachea midline, no thyromegaly Respiratory: normal respiratory effort, lungs clear to auscultation Cardiovascular: Rate/Rhythm: + tachycardic and + irregularly irregular Heart Sounds: normal S1 and normal S2; no murmur Vessels: no JVD Extremities: normal capillary refill; no edema Gastrointestinal (Abdomen): normal bowel sounds, soft, nontender, no hepatosplenomegaly Musculoskeletal: Head/Neck/Chest: normocephalic, head atraumatic and neck supple Extremities: extremities normal to inspection and + abnormal strength Skin: no rashes, warm and dry Neurologic: patellar DTR's 2+ bilat, sensation intact and PERRL, EOMI, accommodation nl, no face palsy, no dysarthria Psychiatric: A+Ox3, euthymic affect Results & Data Results & Data ([facility]) Vital Signs (Past 12 Hours) Vital Signs Temp Pulse Pulse Resp BP BP Pulse Ox 06/19/21 08:54 92/63 L 06/19/21 08:22 36.7 C 109 H 18 99/60 L 99 06/19/21 05:22 131 H 107/79 06/19/21 04:23 36.5 C 106 H 13 107/79 98 06/19/21 00:00 36.5 C 97 H 15 95/53 L 94 06/18/21 22:10 120 H Laboratory Results Laboratory Results - last 24 hr 06/18/21 06/19/21 06/19/21 16:40 06:23 06:23 WBC 5.14 RBC 3.50 L Hgb 9.8 L 10.3 L Hct 31.2 L 33.3 L MCV 95.1 MCH 29.4 MCHC 30.9 L RDW Std Deviation 63.5 H RDW Coeff of Gino 18.6 H Plt Count 167 MPV 10.2 Immature Gran % (Auto) 0.0 Neut % (Auto) 40.0 Lymph % (Auto) 40.9 [place] % (Auto) 11.3 Eos % (Auto) 6.4 Baso % (Auto) 1.4 Neut # (Auto) 2.06 Lymph # (Auto) 2.10 [place] # (Auto) 0.58 Eos # (Auto) 0.33 Baso # (Auto) 0.07 Immature Gran # (Auto) 0.00 Sodium 145 Potassium 3.7 Chloride 115 H Carbon Dioxide 24 Anion Gap 6.0 BUN 17 Creatinine 0.95 Est Cr Clr Drug Dosing 39.5 Est GFR ( Amer) 66.0 Est GFR (Non-Af Amer) 57.0 BUN/Creatinine Ratio 17.9 Glucose 60 L Calcium 8.3 L Magnesium 2.1 Medications Administered Current Inpatient Medications Acetaminophen (Acetaminophen 325 Mg Tab) 650 mg PO Q4H PRN PRN Reason: Pain or Fever Stop: 07/17/21 19:41 Famotidine (Famotidine 20 Mg Tab) 20 mg PO BIDM [facility] Stop: 07/18/21 07:59 Last Admin: 06/19/21 08:50 Dose: 20 mg Documented by: Pantoprazole Sodium 40 mg/ (Syringe) 10 mls @ 5 mls/min IV BID [facility] Stop: 07/18/21 08:59 Last Admin: 06/19/21 08:48 Dose: 5 mls/min Documented by: Lamotrigine (Lamotrigine 100 Mg Tab) 100 mg PO DAILY [facility] Stop: 07/18/21 08:59 Last Admin: 06/19/21 08:50 Dose: 100 mg Documented by: Metoprolol Tartrate (Metoprolol Tartrate 1 Mg/Ml Vial) 5 mg IV Q4H PRN PRN Reason: HR GREATER THAN 110 Stop: 07/17/21 18:25 Last Admin: 06/19/21 05:22 Dose: 5 mg Documented by: Metoprolol Tartrate (Metoprolol Tartrate 25 Mg Tab) 25 mg PO QID [facility] Stop: 07/18/21 12:59 Last Admin: 06/19/21 09:03 Dose: Not Given Documented by: Mirtazapine (Mirtazapine Tab 15 Mg Tab) 15 mg PO [facility] Stop: 07/17/21 20:59 Last Admin: 06/18/21 21:16 Dose: 15 mg Documented by: Nitroglycerin (Nitroglycerin Sl 0.4 Mg/Tab Tab) 0.4 mg SL UD PRN PRN Reason: Angina Stop: 07/17/21 19:41 Ondansetron HCl (Ondansetron 4 Mg Od Tab) 4 mg PO Q8H PRN PRN Reason: nausea and vomiting Polyethylene Glycol (Polyethylene (Miralax) 17 Gm Pack) 17 gm PO DAILY PRN PRN Reason: Constipation Stop: 07/17/21 19:41 Pregabalin (Pregabalin 75 Mg Cap) 75 mg PO [facility] Stop: 07/17/21 20:59 Last Admin: 06/18/21 21:16 Dose: 75 mg Documented by: Quetiapine Fumarate (Quetiapine Fumarate 100 Mg Tablet) 100 mg PO [facility] Stop: 07/17/21 20:59 Last Admin: 06/18/21 21:16 Dose: 100 mg Documented by: Roflumilast (Roflumilast 500 Mcg Tab) 500 mcg PO QAM [facility] Stop: 07/18/21 08:59 Last Admin: 06/19/21 08:50 Dose: 500 mcg Documented by: Rosuvastatin Calcium (Rosuvastatin Calcium 10 Mg Tab) 10 mg PO [facility] Stop: 07/17/21 20:59 Last Admin: 06/18/21 21:16 Dose: 10 mg Documented by: Thiamine HCl (Thiamine Hcl 100 Mg Tab) 100 mg PO QAM [facility] Stop: 07/18/21 08:59 Last Admin: 06/19/21 08:50 Dose: 100 mg Documented by: PG Care Time/CCT Total # of Minutes Spent Total Time Spent with Patient: Total time spent is greater than 50% in coordination of care (as documented) at patient's floor/unit and/or counseling patient: Coding Level of Care Code 29847 Subseq Hosp Care Lvl 2 Diagnoses GI bleed K92.2 Atrial fibrillation I48.91 CAD (coronary artery disease) I25.10 Hypertension I10 Hypertension type: essential hypertension Hyperlipidemia E78.5 Hyperlipidemia type: unspecified Iron (Fe) deficiency anemia D50.9 Iron deficiency anemia type: unspecified iron deficiency COPD (chronic obstructive pulmonary disease) J44.9 COPD type: unspecified COPD Depression F32.[address] of the abdomen R93.5 (1) Hyperlipidemia Hyperlipidemia type: unspecified Qualified Code(s): E78.5 - Hyperlipidemia, unspecified (2) Iron (Fe) deficiency anemia Iron deficiency anemia type: unspecified iron deficiency Qualified Code(s): D50.9 - Iron deficiency anemia, unspecified (3) COPD (chronic obstructive pulmonary disease) COPD type: unspecified COPD Qualified Code(s): J44.9 - Chronic obstructive pulmonary disease, unspecified (4) Hypertension Hypertension type: essential hypertension Qualified Code(s): I10 - Essential (primary) hypertension
--- NOTE | 2021-06-19 12:00 | Anesthesiology Consultation ---
Date of Service June 19, 2021 Assessment & Plan Chart Review Chart Review: Acceptable Risk for Surgery, Patient NOT seen in Pre Admission Testing and entry analyst initiated Consults Requested none History Surgery Operation Date: 06/19/21 17:00 Proposed Procedures p Esophagogastroduodenoscopy Dr Bartolo Mcfarland MD s Flexible Sigmoidoscopy Dr. Bartolo Mcfarland MD Height/Weight Height: 5 ft Weight: 62.142 kg Allergies Allergy/AdvReac Type Severity Reaction Status Date / Time metoclopramide Allergy Intermediate ESSENTIAL Verified 06/17/21 17:23 TREMORS clopidogrel Allergy Mild HIVES Verified 06/17/21 17:23 diazepam Allergy Mild DEPRESSION Verified 06/17/21 17:23 diltiazem Allergy Mild Light Verified 06/17/21 17:23 headed erythromycin base Allergy Mild EES, TAKES Verified 06/17/21 17:23 Z-PACKS W/O RXN gabapentin Allergy Mild States Verified 06/17/21 17:23 hands catch fire latex Allergy Mild rips skin Verified 06/17/21 17:23 off lisinopril Allergy Mild COUGH Verified 06/17/21 17:23 losartan Allergy Mild HIVES Verified 06/17/21 17:23 micafungin Allergy Mild rash Verified 06/17/21 17:23 oxycodone Allergy Mild INC. Verified 06/17/21 17:23 DEPRESSION Penicillins Allergy Mild Diarrhea Verified 06/17/21 17:23 promethazine Allergy Mild TROUBLE Verified 06/17/21 17:23 FOCUSING SPEAKING AT HIGHER DOSES Sulfa (Sulfonamide Allergy Mild SKIN Verified 06/17/21 17:23 Antibiotics) BECOMES PHOTOSENSITIVE AND BECOMES RED bupropion Allergy Unknown unknown Verified 06/17/21 17:23 dicyclomine Allergy Unknown Unknown Verified 06/17/21 17:23 potassium chloride Allergy Unknown Unknown Verified 05/08/21 19:53 sucralfate Allergy Unknown Unknown Verified 06/17/21 17:23 Fcjovjt-Zyl-Yrx Reductase AdvReac Intermediate Diarrhea Verified 06/17/21 17:23 Inhibitor amoxicillin AdvReac Mild DIARRHEA Verified 06/17/21 17:23 clavulanic acid AdvReac Mild DIARRHEA Verified 06/17/21 17:23 hydrocodone AdvReac Mild "dont like Verified 06/17/21 17:23 how it makes me feel" Medications Home Medications Medication Instructions Recorded Confirmed Last Taken nitroglycerin 0.4 mg sublingual 0.4 mg SUBLINGUAL UD PRN 01/01/19 06/17/21 Unknown tablet (Nitrostat) roflumilast 500 mcg tablet 500 mcg PO QAM 01/01/19 06/17/21 06/17/21 Oxygen Home #1 ea 07/21/20 04/10/21 Unknown cholecalciferol (vitamin D3) 25 25 mcg PO DAILY 01/11/21 06/17/21 06/17/21 mcg (1,000 unit) capsule cyanocobalamin (vitamin B-12) 5,000 mcg PO DAILY 01/11/21 06/17/21 06/17/21 5,000 mcg capsule rosuvastatin 10 mg tablet 10 mg PO HS 01/11/21 06/17/21 06/16/21 ferrous gluconate 324 mg (38 mg 324 mg PO BIDM #60 tab 03/11/21 06/17/21 06/17/21 iron) tablet ondansetron HCl 4 mg tablet 4 mg PO Q8H PRN #6 tab 03/11/21 06/17/21 06/08/21 (Zofran) pregabalin 75 mg capsule 75 mg PO HS #30 cap 03/11/21 06/17/21 06/16/21 apixaban 5 mg tablet (Eliquis) 5 mg PO BID #30 tab 04/04/21 06/17/21 06/17/21 folic acid 1 mg tablet 1 mg PO QAM #30 tab 05/31/21 06/17/21 06/17/21 metoprolol tartrate 25 mg tablet 25 mg PO TID 30 Days #90 tab 05/31/21 06/17/21 06/17/21 mirtazapine 15 mg tablet 15 mg PO HS #30 tab 05/31/21 06/17/21 06/16/21 multivitamin-ferrous 1 tab PO QAM #30 tab 05/31/21 06/17/21 06/17/21 fumarate-folic acid 18 mg-400 mcg tablet (Certavite-Antioxidant) pantoprazole 40 mg tablet,delayed 40 mg PO QAM #30 tab 05/31/21 06/17/2106/17 release potassium chloride 10 mEq 10 meq PO QAM #30 tab 05/31/21 06/17/21 06/17/21 tablet,extended release(part/cryst) (Klor-Con M) quetiapine 100 mg tablet 100 mg PO HS #30 tab 05/31/21 06/17/21 06/16/21 thiamine HCl (vitamin B1) 100 mg 100 mg PO QAM #30 tab 05/31/21 06/17/21 06/17/21 tablet (Vitamin B-1) aspirin 81 mg chewable tablet 81 mg PO DAILY 06/17/21 06/17/21 06/17/21 famotidine 20 mg tablet 20 mg PO BIDM 06/17/21 06/17/21 06/17/21 lamotrigine 100 mg tablet 100 mg PO DAILY 06/17/21 06/17/21 06/17/21 (Lamictal) loperamide 2 mg tablet 2 mg PO TID 06/17/21 06/17/21 06/17/21 Active Medications Generic Name Dose Route Start Last Admin Trade Name Freq PRN Reason Stop Dose Admin Famotidine 20 mg 06/18/21 08:00 06/19/21 08:50 Famotidine 20 Mg Tab PO 07/18/21 07:59 20 mg BIDM JANINE Administration Pantoprazole Sodium 40 mg/ 10 mls @ 5 mls/min 06/18/21 09:00 06/19/21 08:48 Syringe IV 07/18/21 08:59 5 mls/min BID JANINE Administration Lamotrigine 100 mg 06/18/21 09:00 06/19/21 08:50 Lamotrigine 100 Mg Tab PO 07/18/21 08:59 100 mg DAILY JANINE Administration Metoprolol Tartrate 5 mg 06/17/21 18:26 06/19/21 05:22 Metoprolol Tartrate 1 Mg/Ml Vial IV 07/17/21 18:25 5 mg Q4H PRN Administration HR GREATER THAN 110 Metoprolol Tartrate 25 mg 06/18/21 13:00 06/19/21 11:58 Metoprolol Tartrate 25 Mg Tab PO 07/18/21 12:59 25 mg QID JANINE Administration Mirtazapine 15 mg 06/17/21 21:00 06/18/21 21:16 Mirtazapine Tab 15 Mg Tab PO 07/17/21 20:59 15 mg HS JANINE Administration Pregabalin 75 mg 06/17/21 21:00 06/18/21 21:16 Pregabalin 75 Mg Cap PO 07/17/21 20:59 75 mg HS JANINE Administration Quetiapine Fumarate 100 mg 06/17/21 21:00 06/18/21 21:16 Quetiapine Fumarate 100 Mg Tablet PO 07/17/21 20:59 100 mg HS JANINE Administration Roflumilast 500 mcg 06/18/21 09:00 06/19/21 08:50 Roflumilast 500 Mcg Tab PO 07/18/21 08:59 500 mcg QAM JANINE Administration Rosuvastatin Calcium 10 mg 06/17/21 21:00 06/18/21 21:16 Rosuvastatin Calcium 10 Mg Tab PO 07/17/21 20:59 10 mg HS JANINE Administration Thiamine HCl 100 mg 06/18/21 09:00 06/19/21 08:50 Thiamine Hcl 100 Mg Tab PO 07/18/21 08:59 100 mg QAM JANINE Administration Past Medical History Medical History Anemia REASON FOR COLONOSCOPY 07/2019 Atrial fibrillation Atrial fibrillation with rapid ventricular response Bipolar 1 disorder Breast cancer (08/23/14) "Abnormal bilateral mammogram Status post core needle biopsy 08/23/2014 revealing intraductal papilloma on the left Right breast showed invasive ductal carcinoma Status post right lumpectomy and sentinel lymph node biopsy 10/08/2014 Stage [id number] Status post completion of radiation therapy 12/24/2014 utilizing hypo-fr actionation received 5000 cGy" Breast cancer, right 2014--stage 1--lumpectomy and radiation Change in vision Chronic obstructive pulmonary disease inhaler daily Closed fracture of left hip Degenerative joint disease Depression Elevated troponin I level Fall Folate deficiency anemia GERD (gastroesophageal reflux disease) Heme + stool History of colon polyps Hyperlipidemia Hypertension Hypokalemia Hypothyroidism Medical marijuana use Myocardial Infarction "silent" in --follows with Dr. Gibbs On home oxygen therapy 2L N/C at hs Pancreatitis hx of Papilloma of breast left Sleep apnea Temporal arteritis Unstable angina Unstable angina Past Family History Family History Grandfather (Paternal) Family history of diabetes mellitus Other No family history of adverse response to anesthesia Past Surgical History Surgical History History of bilateral cataract extraction History of bilateral tubal ligation History of breast surgery removal of papilloma of left breast History of cardiac cath x3--last ---no stents History of cholecystectomy History of colonoscopy History of esophagogastroduodenoscopy (EGD) History of lumpectomy of right breast History of right breast biopsy malignant History of tooth extraction all teeth removed History of total hysterectomy with bilateral salpingo-oophorectomy (BSO) Social History Smoking Status: Former smoker tobacco type: cigarettes Smoking cigarettes per day: 20 a day Hx Alcohol Use: No Alcohol type: wine alcohol intake frequency: holidays/special occasions only Hx Substance Use: No substance use type: does not use Last Used Substance Other:: ues 3x a week Physical Exam Vital Signs Last Vital Signs Temp 36.5 C 06/19/21 11:46 Pulse 121 H 06/19/21 11:46 Resp 18 06/19/21 11:46 BP 113/82 06/19/21 11:46 Pulse Ox 98 06/19/21 11:46 Testing Laboratory Results 06/19/21 06:23 06/19/21 06:23 PT 13.0 Seconds (9.0-12.0) H 06/17/21 20:35 INR 1.3 (0.9-1.1) H 06/17/21 20:35 Blood Type B Positive 06/17/21 16:49 Antibody Screen NEGATIVE 06/17/21 16:49 Electrocardiogram Date: 06/17/21 Test Reason : Blood Pressure : / mmHG Vent. Rate : 123 BPM Atrial Rate : 147 BPM P-R Int : 000 ms QRS Dur : 084 ms QT Int : 322 ms P-R-T Axes : 000 044 212 degrees QTc Int : 460 ms Poor data quality, interpretation may be adversely affected Atrial fibrillation with rapid ventricular response Diffuse Nonspecific ST and T wave abnormality Abnormal ECG When compared with ECG of 18-JUN-2021 04:00, No significant change was found Chest X-Ray Date: 06/17/21 CLINICAL HISTORY: Atrial fibrillation. FINDINGS: An AP, portable, upright chest radiograph is compared to study dated 05/08/2021. Correlation is made with chest CT dated 08/15/2018. The heart is mildly enlarged noting atherosclerotic calcification of the thoracic aorta. The pulmonary vasculature is noncongested. Emphysema and chronic interstitial thickening is similar to previous. No airspace consolidation or large pleural effusion is identified. No pneumothorax is seen. The skeletal structures are osteopenic. The bony thorax is grossly intact. IMPRESSION: Cardiomegaly and emphysema with no acute cardiopulmonary abnormality. Echocardiogram Date: 04/13/21 EF: 50-55 RWMA: + none Valvular Disease: + MR (moderate) Pulmonary Function Test Date: 01/12/20 Spirometry indicates mild obstructive ventilatory defect with no significant post-bronchodilator response. Lung volumes suggest hyperinflation and air trapping. DLCO is mildly reduced, but corrects for alveolar volume. This profile can be compatible with possible COPD. Please clinically correlate.
[2021-06-19] MEDS ORDERED: LIDOCAINE 2% 2 ML VIAL/AMP(20MG/ML) INFIL ONE (14:39)
[2021-06-19] MEDS ORDERED: PROPOFOL IV EMULSION 10 MG/ML 20 ML VIAL IV ONE (14:39)
[2021-06-19] MEDS ORDERED: PHENYLEPHRINE 100MCG/ML 5ML SYR ONE (15:12)
--- NOTE | 2021-06-19 15:27 | GI REPORT ---
Patient Name: Popeye Collier Procedure Date: 06/19/2021 2:44 PM Date of : 1940 Admit Type: Inpatient Age: 81 Gender: Female Attending MD: Emmanuel Mcfarland MD Procedure: Upper GI endoscopy Providers: Emmanuel Mcfarland MD Referring MD: Chago Gould Indications: Melena, Gastrointestinal bleeding of unknown origin Medicines: Monitored Anesthesia Care Complications: No immediate complications. Estimated Blood Loss: Estimated blood loss: none. Procedure: Pre-Anesthesia Assessment: - Prior to the procedure, a History and Physical was performed, and patient medications and allergies were reviewed. The patient is competent. The risks and benefits of the procedure and the sedation options and risks were discussed with the patient. All questions were answered and informed consent was obtained. Patient identification and proposed procedure were verified by the physician, the nurse and the administration assistant in the pre-procedure area in the procedure room. Mental Status Examination: normal. ASA Grade Assessment: III - A patient with severe systemic disease. After reviewing the risks and benefits, the patient was deemed in satisfactory condition to undergo the procedure. The anesthesia plan was to use monitored anesthesia care (MAC). Immediately prior to administration of medications, the patient was re-assessed for adequacy to receive sedatives. The heart rate, respiratory rate, oxygen saturations, blood pressure, adequacy of pulmonary ventilation, and response to care were monitored throughout the procedure. The physical status of the patient was re-assessed after the procedure. After obtaining informed consent, the endoscope was passed under direct vision. Throughout the procedure, the patient's blood pressure, pulse, and oxygen saturations were monitored continuously. The Endoscope was introduced through the mouth, and advanced to the second part of duodenum. The upper GI endoscopy was accomplished without difficulty. The patient tolerated the procedure well. Findings: The examined esophagus was normal. The Z-line was regular and was found 36 cm from the incisors. Diffuse mild inflammation characterized by congestion (edema) and erythema was found in the entire examined stomach. The examined duodenum was normal. A less than 5 mm non-bleeding diverticulum was found in the second portion of the duodenum. There is no endoscopic evidence of bleeding or angioectasia in the first portion of the duodenum. There is no endoscopic evidence of angioectasia in the second portion of the duodenum. There is no endoscopic evidence of bleeding, ulceration, mucosal friability, areas of hemorrhagic mucosa, angioectasia, [place] lesions or erosion in the stomach. Impression: - Normal esophagus. - Z-line regular, 36 cm from the incisors. - Chronic gastritis. - Normal examined duodenum. - Non-bleeding duodenal diverticulum. - No specimens collected. Recommendation: - Return patient to [facility] for ongoing care. - Advance diet as tolerated. - Continue present medications. MD Emmanuel Mcintyre MD 06/19/2021 3:27:10 PM This report has been signed electronically. Note Initiated On: 06/19/2021 2:44 PM Number of Addenda: 0 I attest to the content of the Intraoperative Record and orders documented therein, exceptions below {[id number]}
--- NOTE | 2021-06-19 15:34 | GI REPORT ---
Patient Name: Popeye Collier Procedure Date: 06/19/2021 2:43 PM Date of : 1940 Admit Type: Inpatient Age: 81 Gender: Female Attending MD: Emmanuel Mcfarland MD Procedure: Flexible Sigmoidoscopy Providers: Emmanuel Mcfarland MD Referring MD: Chago Gould Indications: Melena Medicines: Monitored Anesthesia Care Complications: No immediate complications. Estimated Blood Loss: Estimated blood loss was minimal. Procedure: Pre-Anesthesia Assessment: - Prior to the procedure, a History and Physical was performed, and patient medications and allergies were reviewed. The patient is competent. The risks and benefits of the procedure and the sedation options and risks were discussed with the patient. All questions were answered and informed consent was obtained. Patient identification and proposed procedure were verified by the physician, the nurse and the chief engineering division in the pre-procedure area in the procedure room. Mental Status Examination: normal. ASA Grade Assessment: III - A patient with severe systemic disease. After reviewing the risks and benefits, the patient was deemed in satisfactory condition to undergo the procedure. The anesthesia plan was to use monitored anesthesia care (MAC). Immediately prior to administration of medications, the patient was re-assessed for adequacy to receive sedatives. The heart rate, respiratory rate, oxygen saturations, blood pressure, adequacy of pulmonary ventilation, and response to care were monitored throughout the procedure. The physical status of the patient was re-assessed after the procedure. After obtaining informed consent, the endoscope was passed under direct vision. Throughout the procedure, the patient's blood pressure, pulse, and oxygen saturations were monitored continuously. The Endoscope was introduced through the anus and advanced to the sigmoid colon. The flexible sigmoidoscopy was accomplished without difficulty. The patient tolerated the procedure well. The quality of the bowel preparation was poor. Findings: Hemorrhoids were found on perianal exam. The transverse colon appeared normal. Biopsies for histology were taken with a cold forceps from the sigmoid colon for evaluation of microscopic colitis. Estimated blood loss was minimal. There is no endoscopic evidence of bleeding, erythema, inflammation or ulcerations in the sigmoid colon. There is no endoscopic evidence of bleeding, erythema, inflammation or ulcerations in the rectum. Impression: - Preparation of the colon was poor. - Hemorrhoids found on perianal exam. - The transverse colon is normal. Biopsied. Recommendation: - Return patient to [facility] for ongoing care. - Advance diet as tolerated. - Continue present medications. MD Emmanuel Mcintyre MD 06/19/2021 3:33:35 PM This report has been signed electronically. Note Initiated On: 06/19/2021 2:43 PM Number of Addenda: 0 I attest to the content of the Intraoperative Record and orders documented therein, exceptions below {[id number]}
--- NOTE | 2021-06-19 15:47 | Anesthesiology Progress Note ---
Date of Service June 19, 2021 Anesthesia Post Procedure Vital Signs Vital Signs: Temp Pulse Pulse Pulse Pulse Resp BP 06/19/21 15:33 112 H 18 06/19/21 15:18 114 H 18 06/19/21 14:20 36.2 C L 105 H 18 06/19/21 11:46 36.5 C 121 H 18 06/19/21 08:54 06/19/21 08:22 36.7 C 109 H 18 06/19/21 08:00 101 H 06/19/21 05:22 131 H 107/79 06/19/21 04:23 36.5 C 106 H 13 06/19/21 00:00 36.5 C 97 H 15 06/18/21 22:10 120 H 06/18/21 19:42 36.5 C 111 H 14 06/18/21 15:49 36.6 C 117 H 26 H BP Pulse Ox 06/19/21 15:33 135/86 100 06/19/21 15:18 116/71 96 06/19/21 14:20 130/83 98 06/19/21 11:46 113/82 98 06/19/21 08:54 92/63 L 06/19/21 08:22 99/60 L 99 06/19/21 08:00 06/19/21 05:22 06/19/21 04:23 107/79 98 06/19/21 00:00 95/53 L 94 06/18/21 22:10 06/18/21 19:42 116/79 98 06/18/21 15:49 108/65 93 Transfer of Care Handoff Completed per policy Notes Mental Status: alert / awake / arousable and participated in evaluation Patient Amnestic to Procedure: Yes Nausea / Vomiting: adequately controlled Pain: adequately controlled Airway Patency, RR, SpO2: stable & adequate BP & HR: stable & adequate Hydration State: stable & adequate Anesthetic Complications: no major complications apparent and Pt Satisfied with anesthetic care
--- NOTE | 2021-06-19 15:52 | Post Operative Brief Note ---
Immediate Post Op Note v1 Date of Surgery June 19, 2021 Pre & Post Diagnosis Operation Date: 06/19/21 17:00 Pre-Op Diagnosis: GI BLEED Post-Op Diagnosis: Mild diffuse gastritis, duodenal diverticulum I identified the patient and participated in the time-out.: Yes Procedure Operation Date: 06/19/21 17:00 Actual Procedures p Flexible Sigmoidoscopy Biopsy - Emmanuel Mcfarland MD s Esophagogastroduodenoscopy - Emmanuel Mcfarland MD Surgeon Emmanuel Mcfarland MD Fire Prevention Engineer none Estimated Blood Loss 5 Findings See Below EGD findings: Mild diffuse gastritis was present, without erosions, ulcers, or any evidence of bleeding. One small duodenal diverticulum was identified. There was no evidence of any bleeding lesion in the upper GI tract. Flexible Sigmoidoscopy findings: No visible evidence of colitis. The colon was unprepped, stool was present without any visible blood, no melenic stools or dark bloody stools identified. Biopsies were obtained to rule out microscopic colitis Recommend: Advance diet as tolerated, resume anticoagulation with Eliquis, resume aspirin (this is the most likely explanation for gastritis), and continue daily proton pump inhibitor. Close follow up for bleeding with the patient's primary care physician. Complications No immediate complications
--- NOTE | 2021-06-19 16:43 | History & Physical Report ---
Date of Service June 19, 2021 Assessment & Plan (1) Acute GI bleeding: Plan: The patient has had decreased melena since admission. Hgb/Hct stable after transfusion. NPO this morning for procedure. Plan is EGD and flexible sigmoidoscopy today. Continue IV Protonix. Please refer to supervising physician addendum for further recommendations. Plan: Plan is to proceed with upper GI endoscopy (EGD) and flexible sigmoidoscopy to try to identify the source of GI bleeding and apply treatment for bleeding if appropriate. This was discussed with the patient and consent obtained Admission and Anticipated Discharge Date Admission Date: June 17, 2021 History of Present Illness Primary Care Provider: Abiel Clark MD 81 YOF with past medical history of : Left hip replacement 03/08, CAD, HTN, HLD, Breast CA (radiation treatment only, Lumpectomy, anemia, CKD III, COPD, myopathy tremors, Afib (on Eliquis),HLD, Hypothyroidism, FE deficient anemia, proctocolitis, anorexia, GERD, Bi-polar and depression with recent admission for anorexia. She comes to the emergency room today for complaints of lightheadedness, frequent dark stools. She endorses 3-4 days of increased stools , she has some baseline loose stools at baseline. She is unsure of when she last took her Eliquis, but knows it was once today. She is noted to be tachycardic into the 130-140s in the EMD with adequate BP at her baseline 110s/70-80. In the EMD she had routine labs drawn which revealed a HGB level of 7.6 with MCV of 100. Her normal HGB/HCT is ~9.0 and platelet count of 222. Her heme test was positive in the EMD with black stool noted, but no yusra blood reported. Patient also denies any yusra bleeding or hematemesis. She does endorse some generalized burning in her epigastrium area, but denies any hematemesis or vomiting. She had a ECG done, CXR and CT of the abdomen. The CT of the abdomen again revealed non-specific colitis involving rectosigmoid similar to 04/16/21. The patient will be admitted to PCU for GI bleed, t ransfused 2 units of PRBC and follow her HGB and HR response. She was started on a Protonix drip following a bolus in the EMD, will continue. She will be NPO except for meds. GI has been consulted. Patient has had a multiple admissions and difficult recovery following her hip replacement in March 08; to include atrial fibrillation in which she was placed on Eliquis in March. She has had some other episodes of dark stools and mildly decreased hgb in the recent past. She had a recent EGD done secondary to thickened esophagus noted on CT scan and the EGD was normal at that time. She Also has repeatedly tested positive for COVID 19 despite having her vaccination. She has multiple positive and negative tests. She recently tested negative for COVID in May 31 and is POSITIVE on today's test. She will be admitted to isolation and retest as indicated. She is asymptomatic from a COVID perspective. Allergies Allergy/AdvReac Type Severity Reaction Status Date / Time metoclopramide Allergy Intermediate ESSENTIAL Verified 06/19/21 14:18 TREMORS clopidogrel Allergy Mild HIVES Verified 06/19/21 14:18 diazepam Allergy Mild DEPRESSION Verified 06/19/21 14:18 diltiazem Allergy Mild Light Verified 06/19/21 14:18 headed erythromycin base Allergy Mild EES, TAKES Verified 06/19/21 14:18 Z-PACKS W/O RXN gabapentin Allergy Mild States Verified 06/19/21 14:18 hands catch fire latex Allergy Mild rips skin Verified 06/19/21 14:18 off lisinopril Allergy Mild COUGH Verified 06/19/21 14:18 losartan Allergy Mild HIVES Verified 06/19/21 14:18 micafungin Allergy Mild rash Verified 06/19/21 14:18 oxycodone Allergy Mild INC. Verified 06/19/21 14:18 DEPRESSION Penicillins Allergy Mild Diarrhea Verified 06/19/21 14:18 promethazine Allergy Mild TROUBLE Verified 06/19/21 14:18 FOCUSING SPEAKING AT HIGHER DOSES Sulfa (Sulfonamide Allergy Mild SKIN Verified 06/19/21 14:18 Antibiotics) BECOMES PHOTOSENSITIVE AND BECOMES RED bupropion Allergy Unknown unknown Verified 06/19/21 14:18 dicyclomine Allergy Unknown Unknown Verified 06/19/21 14:18 potassium chloride Allergy Unknown Unknown Verified 06/19/21 14:18 sucralfate Allergy Unknown Unknown Verified 06/19/21 14:18 Nmnvdda-Iwf-Qfh Reductase AdvReac Intermediate Diarrhea Verified 06/19/21 14:18 Inhibitor amoxicillin AdvReac Mild DIARRHEA Verified 06/19/21 14:18 clavulanic acid AdvReac Mild DIARRHEA Verified 06/19/21 14:18 hydrocodone AdvReac Mild "dont like Verified 06/19/21 14:18 how it makes me feel" Home Medications Medication Instructions Recorded Confirmed Type nitroglycerin 0.4 mg sublingual 0.4 mg SUBLINGUAL UD PRN 01/01/19 06/17/21 History tablet (Nitrostat) roflumilast 500 mcg tablet 500 mcg PO QAM 01/01/19 06/17/21 History Oxygen Home #1 ea 07/21/20 04/10/21 History cholecalciferol (vitamin D3) 25 25 mcg PO DAILY 01/11/21 06/17/21 History mcg (1,000 unit) capsule cyanocobalamin (vitamin B-12) 5,000 mcg PO DAILY 01/11/21 06/17/21 History 5,000 mcg capsule rosuvastatin 10 mg tablet 10 mg PO HS 01/11/21 06/17/21 History ferrous gluconate 324 mg (38 mg 324 mg PO BIDM #60 tab 03/11/21 06/17/21 Rx iron) tablet ondansetron HCl 4 mg tablet 4 mg PO Q8H PRN #6 tab 03/11/21 06/17/21 Rx (Zofran) pregabalin 75 mg capsule 75 mg PO HS #30 cap 03/11/21 06/17/21 Rx apixaban 5 mg tablet (Eliquis) 5 mg PO BID #30 tab 04/04/21 06/17/21 Rx folic acid 1 mg tablet 1 mg PO QAM #30 tab 05/31/21 06/17/21 Rx metoprolol tartrate 25 mg tablet 25 mg PO TID 30 Days #90 tab 05/31/21 06/17/21 Rx mirtazapine 15 mg tablet 15 mg PO HS #30 tab 05/31/21 06/17/21 Rx multivitamin-ferrous 1 tab PO QAM #30 tab 05/31/21 06/17/21 Rx fumarate-folic acid 18 mg-400 mcg tablet (Certavite-Antioxidant) pantoprazole 40 mg tablet,delayed 40 mg PO QAM #30 tab 05/31/21 06/17/21 Rx release potassium chloride 10 mEq 10 meq PO QAM #30 tab 05/31/21 06/17/21 Rx tablet,extended release(part/cryst) (Klor-Con M) quetiapine 100 mg tablet 100 mg PO HS #30 tab 05/31/21 06/17/21 Rx thiamine HCl (vitamin B1) 100 mg 100 mg PO QAM #30 tab 05/31/21 06/17/21 Rx tablet (Vitamin B-1) aspirin 81 mg chewable tablet 81 mg PO DAILY 06/17/21 06/17/21 History famotidine 20 mg tablet 20 mg PO BIDM 06/17/21 06/17/21 History lamotrigine 100 mg tablet 100 mg PO DAILY 06/17/21 06/17/21 History (Lamictal) loperamide 2 mg tablet 2 mg PO TID 06/17/21 06/17/21 History Past Med/Surg History Medical History Anemia REASON FOR COLONOSCOPY 07/2019 Atrial fibrillation Atrial fibrillation with rapid ventricular response Bipolar 1 disorder Breast cancer (08/23/14) "Abnormal bilateral mammogram Status post core needle biopsy 08/23/2014 revealing intraductal papilloma on the left Right breast showed invasive ductal carcinoma Status post right lumpectomy and sentinel lymph node biopsy 10/08/2014 Stage [id number] Status post completion of radiation therapy 12/24/2014 utilizing hypo- fractionation received 5000 cGy" Breast cancer, right 2013--stage 1--lumpectomy and radiation Change in vision Chronic obstructive pulmonary disease inhaler daily Closed fracture of left hip Degenerative joint disease Depression Elevated troponin I level Fall Folate deficiency anemia GERD (gastroesophageal reflux disease) Heme + stool History of colon polyps Hyperlipidemia Hypertension Hypokalemia Hypothyroidism Medical marijuana use Myocardial Infarction "silent" in --follows with Dr. Gibbs On home oxygen therapy 2L N/C at hs Pancreatitis hx of Papilloma of breast left Sleep apnea Temporal arteritis Unstable angina Unstable angina Surgical History History of bilateral cataract extraction History of bilateral tubal ligation History of breast surgery removal of papilloma of left breast History of cardiac cath x3--last ---no stents History of cholecystectomy History of colonoscopy History of esophagogastroduodenoscopy (EGD) History of lumpectomy of right breast History of right breast biopsy malignant History of tooth extraction all teeth removed History of total hysterectomy with bilateral salpingo-oophorectomy (BSO) Family History Grandfather (Paternal) Family history of diabetes mellitus Other No family history of adverse response to anesthesia Social History Smoking Status: Former smoker Cigarettes Per Day: 20 a day; Second Hand Exposure: No; Hx Alcohol Use: No Hx Substance Use: No Preferred Language: Ukrainian Communication Ability: Effective Night Supervisor Required: No Beliefs That Will Affect Care: None marital status: Current Living Situation: Family Other Information That Helps Us Care for You: No Feels Safe at Home: Yes Safety Concerns: Feels Safe At This Time Assistive Devices: Denture - Upper, Denture - Lower, Glasses, Oxygen - Continuous and Walker Physical Exam Gastrointestinal (Abdomen): Percussion/Palpation: abdomen soft; no guarding, no hepatomegaly, no splenomegaly, no abdominal mass and no pulsatile mass Rectal Exam: + hemorrhoids and + stool abnormal Results & Data ([facility]) Vital Signs (Past 12 Hours) Vital Signs Temp Pulse Pulse Pulse Resp BP BP 06/19/21 15:48 108 H 16 122/84 06/19/21 15:33 112 H 18 135/86 06/19/21 15:18 114 H 18 116/71 06/19/21 14:20 36.2 C L 105 H 18 130/83 06/19/21 11:46 36.5 C 121 H 18 113/82 06/19/21 08:54 92/63 L 06/19/21 08:22 36.7 C 109 H 18 99/60 L 06/19/21 08:00 101 H 06/19/21 05:22 131 H 107/79 Pulse Ox 06/19/21 15:48 100 06/19/21 15:33 100 06/19/21 15:18 96 06/19/21 14:20 98 06/19/21 11:46 98 06/19/21 08:54 06/19/21 08:22 99 06/19/21 08:00 06/19/21 05:22 Code Status & VTE Plan VTE Prophylaxis Plan VTE Prophylaxis will be ordered: Yes
[2021-06-19] MEDS: ROSUVASTATIN CALCIUM 10 MG TAB PO SCH (20:04)
[2021-06-19] MEDS: MIRTAZAPINE TAB 15 MG TAB PO SCH (20:05)
[2021-06-19] MEDS: QUEtiapine FUMARATE 100 MG TABLET PO SCH (20:05)
[2021-06-19] MEDS: PREGABALIN 75 MG CAP PO SCH (20:09)
[2021-06-20 06:40] LABS: Basophils # (auto) 0.05 K/uL (0-0.2); Eosinophils # (auto) 0.28 K/uL (0-0.5); Eosinophils % (auto) 5.7 %; Hematocrit (blood only) 31.5 % (37-47); Hemoglobin 9.9 g/dL (12.0-16.0); Lymphocytes # (auto) 1.82 K/uL (1.2-3.4); Lymphocytes % (auto) 36.9 %; Mean Corpuscular Hemoglobin 30.2 pg (25-34); Mean Corpuscular Hgb Conc 31.4 g/dL (32-36); Mean Platelet Volume 10.4 fL (7.4-10.4); Monocytes # (auto) 0.53 K/uL (0.11-0.59); Monocytes % (auto) 10.8 %; Neutrophils # (auto) 2.25 K/uL (1.4-6.5); Neutrophils % (auto) 45.6 %; Platelet Count 152 K/uL (130-400); RDW Coefficient of Variation 17.5 % (11.5-14.5); RDW Standard Deviation 60.8 fL (36.4-46.3); Red Blood Count 3.28 M/uL (4.2-5.4); White Blood Count 4.93 K/uL (4.8-10.8)
[2021-06-20 07:12] LABS: BUN Creatinine Ratio 15.4 (10-20); Calcium 8.4 mg/dl (8.5-10.1); Creatinine Clr Calc Pharmacy 43.7 ml/min; Est GFR (African American) 73.4 ml/min; Est GFR (Non-African American) 63.4 ml/min; Magnesium 1.8 mg/dl (1.8-2.4); Potassium 3.8 mmol/L (3.5-5.1)
[2021-06-20] MEDS: METOPROLOL TARTRATE 1 MG/ML VIAL IV PRN ×2 (07:53→17:18)
[2021-06-20] MEDS: PANTOprazole 40 MG TAB PO SCH (07:55)
[2021-06-20] MEDS: ROFLUMILAST 500 MCG TAB PO SCH (07:56)
[2021-06-20] MEDS: THIAMINE HCL 100 MG TAB PO SCH (07:56)
[2021-06-20] MEDS: FAMOTIDINE 20 MG TAB PO SCH ×2 (07:56→16:59)
[2021-06-20] MEDS: METOPROLOL TARTRATE 25 MG TAB PO SCH (07:56)
[2021-06-20] MEDS: lamoTRIgine 100 MG TAB PO SCH (07:57)
--- NOTE | 2021-06-20 08:07 | Gastroenterology Progress Note ---
Date of Service June 20, 2021 Assessment & Plan (1) Anemia: Plan: The patient is doing well this morning. EGD and flexible sigmoidoscopy demonstrated no source of bleeding. Hgb 9.9/Hct 31.5 this morning. Advancing diet as tolerated. Continue p.o. PPI. Okay to restart anticoagulation if not already done so. Continue to avoid NSAIDs. Will plan to schedule follow-up in the outpatient GI clinic for small bowel capsule endoscopy. The patient is aware of this plan and in agreement. GI service will sign off. Thank you for the consult and please reconsult if needed. Please refer to supervising physician addendum for further recommendations. Admission and Anticipated Discharge Date Admission Date: June 17, 2021 Supervising Physician Co-Signing Physician Notes I interviewed and examined the patient and reviewed the medical record, with the following observations: Subjective: The patient denies any further rectal bleeding since endoscopic examinations yesterday. She has chronic anorexia, but denies nausea, vomiting, abdominal pain, diarrhea Physical Examination: No distress at rest. Mild tachypnea, and tachycardia with irregularly irregular cardiac rhythm. The abdomen is obese, soft, without guarding. There is mild LUQ tenderness to palpation without rebound tenderness Chart Review: Stable labs, without drop in Hgb/Hct This case was reviewed with the advanced practice provider I agree with the assessment as outlined in this consultation, with the following observations: Destabiliing GI bleeding episode resolved. This was most likely due to use of Eliquis and aspirin. The source of bleeding in this episode was not identified, so this is GI bleeding from an obscure source. No source identified in the upper GI tract through the second portion of the duodenum, or from the sigmoid colon and rectum. There was no visible blood in the GI tract. Colonoscopy in 2018 revealed only small polyps, no potential bleeding site. The small bowel has not been examined. I agree with the plan of care as outlined in this consultation, with the following changes and/or additions: Eliquis and Aspirin should be resumed, and we will make arrangements for outpatient videocapsule endoscopy of the small intestine. An oral proton pump inhibitor at standard dose should be continued. The recommended procedure was discussed with the patient, including the indications for examination and potential benefits, risks, alternatives, potential outcomes, and post procedure plans of care. All questions were addressed and answered, understanding was acknowledged, and consent was obtained Subjective This morning the patient is awake alert and oriented. She is sitting at her bedside. Nursing is in the room giving her medication. She did have an episode of fecal incontinence this morning. She denies any further bleeding and nursing confirms this. Denies any abdominal pain, nausea, vomiting. States overall she is feeling well. 06/19/2021: EGD notes are reviewed and demonstrated normal esophagus; regular Z- line 36 cm from the incisors; chronic gastritis; normal examined duodenum; nonbleeding duodenal diverticulum; no specimens were collected. 06/19/2021: Flexible sigmoidoscopy was obtained and demonstrated hemorrhoids on perianal exam; transverse colon appeared normal with biopsies obtained; there was no endoscopic evidence of bleeding, erythema, inflammation, ulcerations in the sigmoid colon or rectum. Pathology results are pending Review of Systems Review of Systems: All systems reviewed & are unremarkable except as noted in Subjective Physical Exam Gastrointestinal (Abdomen): Inspection/Auscultation: abdomen normal to inspection and normal bowel sounds; abdomen not distended Percussion/Palpation: abdomen soft; abdomen nontender, no guarding and abdomen not rigid Results & Data ([facility]) Vital Signs (Past 12 Hours) Vital Signs Temp Pulse Pulse Pulse Resp BP BP 06/20/21 07:53 142 H 147/98 H 06/20/21 03:29 36.6 C 110 H 20 114/70 06/19/21 23:03 36.4 C L 103 H 15 103/66 06/19/21 22:20 98 H Pulse Ox 06/20/21 07:53 06/20/21 03:29 98 06/19/21 23:03 99 06/19/21 22:20 Laboratory Results - last 24 hr 06/19/21 06/19/21 06/20/21 20:36 21:40 06:06 WBC 4.93 RBC 3.28 L Hgb 9.9 L Hct 31.5 L MCV 96.0 MCH 30.2 MCHC 31.4 L RDW Std Deviation 60.8 H RDW Coeff of Gino 17.5 H Plt Count 152 MPV 10.4 Immature Gran % (Auto) 0.0 Neut % (Auto) 45.6 Lymph % (Auto) 36.9 [place] % (Auto) 10.8 Eos % (Auto) 5.7 Baso % (Auto) 1.0 Neut # (Auto) 2.25 Lymph # (Auto) 1.82 [place] # (Auto) 0.53 Eos # (Auto) 0.28 Baso # (Auto) 0.05 Immature Gran # (Auto) 0.00 Sodium Potassium Chloride Carbon Dioxide Anion Gap BUN Creatinine Est Cr Clr Drug Dosing Est GFR ( Amer) Est GFR (Non-Af Amer) BUN/Creatinine Ratio Glucose POC Glucose 62 L* 104 H Calcium Magnesium 06/20/21 06:06 WBC RBC Hgb Hct MCV MCH MCHC RDW Std Deviation RDW Coeff of Gino Plt Count MPV Immature Gran % (Auto) Neut % (Auto) Lymph % (Auto) [place] % (Auto) Eos % (Auto) Baso % (Auto) Neut # (Auto) Lymph # (Auto) [place] # (Auto) Eos # (Auto) Baso # (Auto) Immature Gran # (Auto) Sodium 146 H Potassium 3.8 Chloride 116 H Carbon Dioxide 23 Anion Gap 7.0 BUN 13 Creatinine 0.87 Est Cr Clr Drug Dosing 43.7 Est GFR ( Amer) 73.4 Est GFR (Non-Af Amer) 63.4 BUN/Creatinine Ratio 15.4 Glucose 61 L POC Glucose Calcium 8.4 L Magnesium 1.8 (1) Anemia Anemia type: unspecified type Qualified Code(s): D64.9 - Anemia, unspecified
[2021-06-20 11:23] LABS: Appearance Urine Clear (Clear); Bacteria Urine Automated Negative (Negative); Blood Urine Negative (Negative); Color Urine Dark Yellow; Epithelial Cell Urine Auto >30 /lpf (0-5); Glucose Urine UA Negative (Negative); Ketones Urine 3+ (Negative); Leukocyte Esterase Urine Trace (Negative); Nitrite Urine Negative (Negative); Protein Urine Trace (Negative); RBC Urine Automated 0-4 /hpf (0-4); Specific Gravity Urine 1.022 (1.000-1.030); Urobilinogen Urine Negative (Negative); pH Urine 5.5 (4.5-7.5)
[2021-06-20 11:24] LABS: Bilirubin Urine 1+ (Negative)
--- NOTE | 2021-06-20 12:10 | Hospitalist Progress Note ---
Date of Service June 20, 2021 Assessment & Plan (1) GI bleed: Plan: Presumed UGI with dark stools, Heme positive in the EMD, HGB 7.6, tachycardia, elevated BUN - [place] score 11 - Protonix, initially on drip, change to 40mg PO daily - resume diet - S/P 2 units PRBC Hemoglobin now 9.9 - GI consulted: EGD 06/19 with no signs of bleeding, sigmoidoscopy with no bleeding hold Eliquis for time being (2) Atrial fibrillation: Plan: chronic atrial fibrillation Usual HR 90-110, up today at 130's change metoprolol to 50 BID add Digoxin 250mcg IV today and then 125mcg PO daily - Hold eliquis (3) CAD (coronary artery disease): Plan: Multivessel CAD: RCA, LCX, LAD, L-main and ramus - Cardiac cath 2001 and 2006 collateral flow with medical management - Continue statin - Metoprolol for rate control- as long as she remains hemodynamically stable with BP (4) Hypertension: Plan: Controlled - Hold as above until hemodynamic proven - will continue metoprolol (5) Hyperlipidemia: Plan: Continue statin (6) Iron (Fe) deficiency anemia: Plan: Is on iron replacement as outpatient - MCV 100 (7) COPD (chronic obstructive pulmonary disease): Plan: Stable no frequent exacerbations - Continue roflumilast, (8) Depression: Plan: Continue quetiapine mood stable today, making jokes (9) Abnormal CT of the abdomen: Plan: Chronic proctocolitis with SMA stenosis - she has had frequent diarrhea, Cdif negative in recent past- normal WBC - Previously treated diarrhea with Cipro and Flagyl PO and Imodium- we are not at that point currently - Follows with [facility] GI Admission and Anticipated Discharge Date Admission Date: June 17, 2021 Subjective patient not eating much, says nothing tastes good, she admits she could eat pizza from [employer] told her to have her bring it in HR elevated in 120-130's, afib, this happens often she is very weak, weaker than before, she knows she needs to return to [facility] will add Digoxin for heart rate no fever, no cough, no dyspnea Review of Systems Review of Systems: All systems reviewed & are unremarkable except as noted in Subjective Physical Exam Constitutional: well developed, + frail appearing and comfortable; no acute distress Neck: trachea midline, no thyromegaly Respiratory: normal respiratory effort, lungs clear to auscultation Cardiovascular: Rate/Rhythm: + tachycardic and + irregularly irregular Heart Sounds: normal S1 and normal S2; no murmur Vessels: no JVD Extremities: normal capillary refill; no edema Gastrointestinal (Abdomen): normal bowel sounds, soft, nontender, no hepatosplenomegaly Musculoskeletal: Head/Neck/Chest: normocephalic, head atraumatic and neck supple Extremities: extremities normal to inspection and + abnormal strength Skin: no rashes, warm and dry Neurologic: patellar DTR's 2+ bilat, sensation intact and PERRL, EOMI, accommodation nl, no face palsy, no dysarthria Psychiatric: A+Ox3, euthymic affect Results & Data Results & Data ([facility]) Vital Signs (Past 12 Hours) Vital Signs Temp Pulse Pulse Resp BP BP Pulse Ox 06/20/21 11:59 36.5 C 92 H 18 139/74 94 06/20/21 08:00 36.8 C 120 H 19 147/98 H 98 06/20/21 07:53 142 H 147/98 H 06/20/21 03:29 36.6 C 110 H 20 114/70 98 Laboratory Results Laboratory Results - last 24 hr 06/19/21 06/19/21 06/20/21 20:36 21:40 06:06 WBC 4.93 RBC 3.28 L Hgb 9.9 L Hct 31.5 L MCV 96.0 MCH 30.2 MCHC 31.4 L RDW Std Deviation 60.8 H RDW Coeff of Gino 17.5 H Plt Count 152 MPV 10.4 Immature Gran % (Auto) 0.0 Neut % (Auto) 45.6 Lymph % (Auto) 36.9 [place] % (Auto) 10.8 Eos % (Auto) 5.7 Baso % (Auto) 1.0 Neut # (Auto) 2.25 Lymph # (Auto) 1.82 [place] # (Auto) 0.53 Eos # (Auto) 0.28 Baso # (Auto) 0.05 Immature Gran # (Auto) 0.00 Sodium Potassium Chloride Carbon Dioxide Anion Gap BUN Creatinine Est Cr Clr Drug Dosing Est GFR ( Amer) Est GFR (Non-Af Amer) BUN/Creatinine Ratio Glucose POC Glucose 62 L* 104 H Calcium Magnesium Urine Color Urine Appearance Urine pH Ur Specific [place] Urine Protein Urine Glucose (UA) Urine Ketones Urine Blood Urine Nitrite Urine Bilirubin Urine Urobilinogen Ur Leukocyte Esterase Urine WBC (Auto) Urine RBC (Auto) U Hyaline Cast (Auto) U Epithel Cells (Auto) Urine Bacteria (Auto) 06/20/21 06/20/21 06:06 11:03 WBC RBC Hgb Hct MCV MCH MCHC RDW Std Deviation RDW Coeff of Gino Plt Count MPV Immature Gran % (Auto) Neut % (Auto) Lymph % (Auto) [place] % (Auto) Eos % (Auto) Baso % (Auto) Neut # (Auto) Lymph # (Auto) [place] # (Auto) Eos # (Auto) Baso # (Auto) Immature Gran # (Auto) Sodium 146 H Potassium 3.8 Chloride 116 H Carbon Dioxide 23 Anion Gap 7.0 BUN 13 Creatinine 0.87 Est Cr Clr Drug Dosing 43.7 Est GFR ( Amer) 73.4 Est GFR (Non-Af Amer) 63.4 BUN/Creatinine Ratio 15.4 Glucose 61 L POC Glucose Calcium 8.4 L Magnesium 1.8 Urine Color Dark Yellow Urine Appearance Clear Urine pH 5.5 Ur Specific [place] 1.022 Urine Protein Trace H Urine Glucose (UA) Negative Urine Ketones 3+ H Urine Blood Negative Urine Nitrite Negative Urine Bilirubin 1+ H Urine Urobilinogen Negative Ur Leukocyte Esterase Trace H Urine WBC (Auto) 10-30 H Urine RBC (Auto) 0-4 U Hyaline Cast (Auto) 10-30 H U Epithel Cells (Auto) >30 H Urine Bacteria (Auto) Negative Medications Administered Current Inpatient Medications Acetaminophen (Acetaminophen 325 Mg Tab) 650 mg PO Q4H PRN PRN Reason: Pain or Fever Stop: 07/17/21 19:41 Famotidine (Famotidine 20 Mg Tab) 20 mg PO BIDM [facility] Stop: 07/18/21 07:59 Last Admin: 06/20/21 07:56 Dose: 20 mg Documented by: Lamotrigine (Lamotrigine 100 Mg Tab) 100 mg PO DAILY [facility] Stop: 07/18/21 08:59 Last Admin: 06/20/21 07:57 Dose: 100 mg Documented by: Metoprolol Tartrate (Metoprolol Tartrate 1 Mg/Ml Vial) 5 mg IV Q4H PRN PRN Reason: HR GREATER THAN 110 Stop: 07/17/21 18:25 Last Admin: 06/20/21 07:53 Dose: 5 mg Documented by: Metoprolol Tartrate (Metoprolol Tartrate 50 Mg Tab) 50 mg PO BID [facility] Stop: 07/20/21 20:59 Mirtazapine (Mirtazapine Tab 15 Mg Tab) 15 mg PO [facility] Stop: 07/17/21 20:59 Last Admin: 06/19/21 20:05 Dose: 15 mg Documented by: Nitroglycerin (Nitroglycerin Sl 0.4 Mg/Tab Tab) 0.4 mg SL UD PRN PRN Reason: Angina Stop: 07/17/21 19:41 Ondansetron HCl (Ondansetron 4 Mg Od Tab) 4 mg PO Q8H PRN PRN Reason: nausea and vomiting Pantoprazole Sodium (Pantoprazole 40 Mg Tab) 40 mg PO [facility] Stop: 07/20/21 08:59 Last Admin: 06/20/21 07:55 Dose: 40 mg Documented by: Polyethylene Glycol (Polyethylene (Miralax) 17 Gm Pack) 17 gm PO DAILY PRN PRN Reason: Constipation Stop: 07/17/21 19:41 Pregabalin (Pregabalin 75 Mg Cap) 75 mg PO [facility] Stop: 07/17/21 20:59 Last Admin: 06/19/21 20:09 Dose: 75 mg Documented by: Quetiapine Fumarate (Quetiapine Fumarate 100 Mg Tablet) 100 mg PO [facility] Stop: 07/17/21 20:59 Last Admin: 06/19/21 20:05 Dose: 100 mg Documented by: Roflumilast (Roflumilast 500 Mcg Tab) 500 mcg PO [facility] Stop: 07/18/21 08:59 Last Admin: 06/20/21 07:56 Dose: 500 mcg Documented by: Rosuvastatin Calcium (Rosuvastatin Calcium 10 Mg Tab) 10 mg PO [facility] Stop: 07/17/21 20:59 Last Admin: 06/19/21 20:04 Dose: 10 mg Documented by: Thiamine HCl (Thiamine Hcl 100 Mg Tab) 100 mg PO [facility] Stop: 07/18/21 08:59 Last Admin: 06/20/21 07:56 Dose: 100 mg Documented by: PG Care Time/CCT Total # of Minutes Spent Total Time Spent with Patient: Total time spent is greater than 50% in coordination of care (as documented) at patient's floor/unit and/or counseling patient: Coding Level of Care Code 39870 Subseq Hosp Care Lvl 2 Diagnoses GI bleed K92.2 Atrial fibrillation I48.91 CAD (coronary artery disease) I25.10 Hypertension I10 Hypertension type: essential hypertension Hyperlipidemia E78.5 Hyperlipidemia type: unspecified Iron (Fe) deficiency anemia D50.9 Iron deficiency anemia type: unspecified iron deficiency COPD (chronic obstructive pulmonary disease) J44.9 COPD type: unspecified COPD Depression F32.[address] of the abdomen R93.5 (1) Hyperlipidemia Hyperlipidemia type: unspecified Qualified Code(s): E78.5 - Hyperlipidemia, unspecified (2) Iron (Fe) deficiency anemia Iron deficiency anemia type: unspecified iron deficiency Qualified Code(s): D50.9 - Iron deficiency anemia, unspecified (3) COPD (chronic obstructive pulmonary disease) COPD type: unspecified COPD Qualified Code(s): J44.9 - Chronic obstructive pulmonary disease, unspecified (4) Hypertension Hypertension type: essential hypertension Qualified Code(s): I10 - Essential (primary) hypertension
[2021-06-20] MEDS ORDERED: DIGOXIN 250 MCG in SYRINGE 9 ML IV STA (12:20)
[2021-06-20] MEDS: MIRTAZAPINE TAB 15 MG TAB PO SCH (21:26)
[2021-06-20] MEDS: METOPROLOL TARTRATE 50 MG TAB PO SCH (21:26)
[2021-06-20] MEDS: ROSUVASTATIN CALCIUM 10 MG TAB PO SCH (21:27)
[2021-06-20] MEDS: PREGABALIN 75 MG CAP PO SCH (21:27)
[2021-06-20] MEDS: QUEtiapine FUMARATE 100 MG TABLET PO SCH (21:27)
[2021-06-21] MEDS: METOPROLOL TARTRATE 50 MG TAB PO SCH ×2 (08:01→21:13)
[2021-06-21] MEDS: FAMOTIDINE 20 MG TAB PO SCH ×2 (08:23→15:02)
[2021-06-21] MEDS: ROFLUMILAST 500 MCG TAB PO SCH (08:23)
[2021-06-21] MEDS: THIAMINE HCL 100 MG TAB PO SCH (08:23)
[2021-06-21] MEDS: lamoTRIgine 100 MG TAB PO SCH (08:23)
[2021-06-21] MEDS: PANTOprazole 40 MG TAB PO SCH (08:23)
--- NOTE | 2021-06-21 10:01 | Hospitalist Progress Note ---
Date of Service June 21, 2021 Assessment & Plan (1) GI bleed: Plan: Presumed UGI with dark stools, Heme positive in the EMD, HGB 7.6, tachycardia, elevated BUN - Protonix, initially on drip, change to 40mg PO daily - resume diet - S/P 2 units PRBC Hemoglobin now 9.9 - GI consulted: EGD 06/19 with no signs of bleeding, sigmoidoscopy with no bleeding resume Eliquis today GI plans for capsule endoscopy as outpatient, she agrees with plan (2) Atrial fibrillation: Plan: chronic atrial fibrillation change metoprolol to 50 BID add Digoxin 125mcg PO daily, HR better today resume Eliquis (3) CAD (coronary artery disease): Plan: Multivessel CAD: RCA, LCX, LAD, L-main and ramus - Cardiac cath 2001 and 2006 collateral flow with medical management - Continue statin - Metoprolol for rate control- as long as she remains hemodynamically stable with BP (4) Hypertension: Plan: Controlled - - will continue metoprolol (5) Hyperlipidemia: Plan: Continue statin (6) Iron (Fe) deficiency anemia: Plan: Is on iron replacement as outpatient - MCV 100 (7) COPD (chronic obstructive pulmonary disease): Plan: Stable no frequent exacerbations - Continue roflumilast, (8) Depression: Plan: Continue quetiapine mood stable today, making jokes (9) Abnormal CT of the abdomen: Plan: Chronic proctocolitis with SMA stenosis - she has had frequent diarrhea, Cdif negative in recent past- normal WBC - Previously treated diarrhea with Cipro and Flagyl PO and Imodium- we are not at that point currently - Follows with [facility] GI Admission and Anticipated Discharge Date Admission Date: June 17, 2021 Subjective patient okay today, not looking forward to going to [facility] but she understands asked me about home care givers, said they are out of pocket, tough to get night help she asked if her was younger could she go home, explained that it is not his age, she is just too weak for any one person to provide care not eating great, bringing in pizza today no chest pain, HR is better today, no dyspnea still very weak Review of Systems Review of Systems: All systems reviewed & are unremarkable except as noted in Subjective Constitutional: + weakness; no fever and no fatigue Respiratory: no cough and no dyspnea Cardiovascular: no chest pain and no edema Gastrointestinal: + early satiety and + diarrhea/loose stools; no abdominal pain, no nausea, no vomiting and no constipation Physical Exam Constitutional: well developed, + frail appearing and comfortable; no acute distress Neck: trachea midline, no thyromegaly Respiratory: normal respiratory effort, lungs clear to auscultation Cardiovascular: Rate/Rhythm: + tachycardic and + irregularly irregular Heart Sounds: normal S1 and normal S2; no murmur Vessels: no JVD Extremities: normal capillary refill; no edema Gastrointestinal (Abdomen): normal bowel sounds, soft, nontender, no hepatosplenomegaly Musculoskeletal: Head/Neck/Chest: normocephalic, head atraumatic and neck supple Extremities: extremities normal to inspection and + abnormal strength Skin: no rashes, warm and dry Neurologic: patellar DTR's 2+ bilat, sensation intact and PERRL, EOMI, ac commodation nl, no face palsy, no dysarthria Psychiatric: A+Ox3, euthymic affect Results & Data Results & Data ([facility]) Vital Signs (Past 12 Hours) Vital Signs Temp Pulse Pulse Resp BP Pulse Ox 06/21/21 07:57 36.5 C 115 H 18 123/96 97 06/21/21 04:24 36.8 C 105 H 18 134/74 95 06/21/21 03:57 91 H 06/20/21 23:50 37.0 C 94 H 17 109/54 L 92 Laboratory Results Laboratory Results - last 24 hr 06/20/21 11:03 Urine Color Dark Yellow Urine Appearance Clear Urine pH 5.5 Ur Specific Means 1.022 Urine Protein Trace H Urine Glucose (UA) Negative Urine Ketones 3+ H Urine Blood Negative Urine Nitrite Negative Urine Bilirubin 1+ H Urine Urobilinogen Negative Ur Leukocyte Esterase Trace H Urine WBC (Auto) 10-30 H Urine RBC (Auto) 0-4 U Hyaline Cast (Auto) 10-30 H U Epithel Cells (Auto) >30 H Urine Bacteria (Auto) Negative Medications Administered Current Inpatient Medications Acetaminophen (Acetaminophen 325 Mg Tab) 650 mg PO Q4H PRN PRN Reason: Pain or Fever Stop: 07/17/21 19:41 Apixaban (Apixaban 5 Mg Tablet) 5 mg PO BID [facility] Stop: 07/21/21 08:59 Digoxin (Digoxin 0.125 Mg Tab) 0.125 mg PO DAILY@1600 [facility] Stop: 07/21/21 15:59 Famotidine (Famotidine 20 Mg Tab) 20 mg PO BIDM [facility] Stop: 07/18/21 07:59 Last Admin: 06/21/21 08:23 Dose: 20 mg Documented by: Lamotrigine (Lamotrigine 100 Mg Tab) 100 mg PO DAILY [facility] Stop: 07/18/21 08:59 Last Admin: 06/21/21 08:23 Dose: 100 mg Documented by: Metoprolol Tartrate (Metoprolol Tartrate 1 Mg/Ml Vial) 5 mg IV Q4H PRN PRN Reason: HR GREATER THAN 110 Stop: 07/17/21 18:25 Last Admin: 06/20/21 17:18 Dose: 5 mg Documented by: Metoprolol Tartrate (Metoprolol Tartrate 50 Mg Tab) 50 mg PO BID [facility] Stop: 07/20/21 20:59 Last Admin: 06/21/21 08:01 Dose: 50 mg Documented by: Mirtazapine (Mirtazapine Tab 15 Mg Tab) 15 mg PO [facility] Stop: 07/17/21 20:59 Last Admin: 06/20/21 21:26 Dose: 15 mg Documented by: Nitroglycerin (Nitroglycerin Sl 0.4 Mg/Tab Tab) 0.4 mg SL UD PRN PRN Reason: Angina Stop: 07/17/21 19:41 Ondansetron HCl (Ondansetron 4 Mg Od Tab) 4 mg PO Q8H PRN PRN Reason: nausea and vomiting Pantoprazole Sodium (Pantoprazole 40 Mg Tab) 40 mg PO QAM [facility] Stop: 07/20/21 08:59 Last Admin: 06/21/21 08:23 Dose: 40 mg Documented by: Polyethylene Glycol (Polyethylene (Miralax) 17 Gm Pack) 17 gm PO DAILY PRN PRN Reason: Constipation Stop: 07/17/21 19:41 Pregabalin (Pregabalin 75 Mg Cap) 75 mg PO [facility] Stop: 07/17/21 20:59 Last Admin: 06/20/21 21:27 Dose: 75 mg Documented by: Quetiapine Fumarate (Quetiapine Fumarate 100 Mg Tablet) 100 mg PO [facility] Stop: 07/17/21 20:59 Last Admin: 06/20/21 21:27 Dose: 100 mg Documented by: Roflumilast (Roflumilast 500 Mcg Tab) 500 mcg PO QAM [facility] Stop: 07/18/21 08:59 Last Admin: 06/21/21 08:23 Dose: 500 mcg Documented by: Rosuvastatin Calcium (Rosuvastatin Calcium 10 Mg Tab) 10 mg PO HS [facility] Stop: 07/17/21 20:59 Last Admin: 06/20/21 21:27 Dose: 10 mg Documented by: Thiamine HCl (Thiamine Hcl 100 Mg Tab) 100 mg PO QAM [facility] Stop: 07/18/21 08:59 Last Admin: 06/21/21 08:23 Dose: 100 mg Documented by: PG Care Time/CCT Total # of Minutes Spent Total Time Spent with Patient: Total time spent is greater than 50% in coordination of care (as documented) at patient's floor/unit and/or counseling patient: Coding Level of Care Code 81641 Subseq Hosp Care Lvl 2 Diagnoses GI bleed K92.2 Atrial fibrillation I48.91 CAD (coronary artery disease) I25.10 Hypertension I10 Hypertension type: essential hypertension Hyperlipidemia E78.5 Hyperlipidemia type: unspecified Iron (Fe) deficiency anemia D50.9 Iron deficiency anemia type: unspecified iron deficiency COPD (chronic obstructive pulmonary disease) J44.9 COPD type: unspecified COPD Depression F32.[address] of the abdomen R93.5 (1) Hyperlipidemia Hyperlipidemia type: unspecified Qualified Code(s): E78.5 - Hyperlipidemia, unspecified (2) Iron (Fe) deficiency anemia Iron deficiency anemia type: unspecified iron deficiency Qualified Code(s): D50.9 - Iron deficiency anemia, unspecified (3) COPD (chronic obstructive pulmonary disease) COPD type: unspecified COPD Qualified Code(s): J44.9 - Chronic obstructive pulmonary disease, unspecified (4) Hypertension Hypertension type: essential hypertension Qualified Code(s): I10 - Essential (primary) hypertension
[2021-06-21] MEDS: APIXABAN 5 MG TABLET PO SCH ×2 (12:14→21:14)
[2021-06-21] MEDS: DIGOXIN 0.125 MG TAB PO SCH (15:01)
[2021-06-21] MEDS: MIRTAZAPINE TAB 15 MG TAB PO SCH (21:13)
[2021-06-21] MEDS: QUEtiapine FUMARATE 100 MG TABLET PO SCH (21:13)
[2021-06-21] MEDS: ROSUVASTATIN CALCIUM 10 MG TAB PO SCH (21:13)
[2021-06-21] MEDS: PREGABALIN 75 MG CAP PO SCH (21:13)
[2021-06-22] MEDS: METOPROLOL TARTRATE 50 MG TAB PO SCH ×3 (07:53→21:09)
[2021-06-22] MEDS: APIXABAN 5 MG TABLET PO SCH ×2 (07:55→21:09)
[2021-06-22] MEDS: lamoTRIgine 100 MG TAB PO SCH (07:55)
[2021-06-22] MEDS: PANTOprazole 40 MG TAB PO SCH (07:56)
[2021-06-22] MEDS: FAMOTIDINE 20 MG TAB PO SCH ×2 (07:56→14:51)
[2021-06-22] MEDS: THIAMINE HCL 100 MG TAB PO SCH (07:56)
[2021-06-22] MEDS: ROFLUMILAST 500 MCG TAB PO SCH (07:57)
[2021-06-22] MEDS: METOPROLOL TARTRATE 1 MG/ML VIAL IV PRN (08:27)
--- NOTE | 2021-06-22 11:48 | Hospitalist Progress Note ---
Date of Service June 22, 2021 Assessment & Plan (1) GI bleed: Plan: Presumed UGI with dark stools, Heme positive in the EMD, HGB 7.6, tachycardia, elevated BUN - Protonix, initially on drip, change to 40mg PO daily - resume diet - S/P 2 units PRBC Hemoglobin now 9.9 when last checked, will get labs tomorrow - GI consulted: EGD 06/19 with no signs of bleeding, sigmoidoscopy with no bleeding resume Eliquis GI plans for capsule endoscopy as outpatient, she agrees with plan (2) Atrial fibrillation: Plan: chronic atrial fibrillation more issues with RVR the past 24 hours will increase metoprolol to 50mg TID, give dose at 1400 today monitor BP closely continue Digoxin 125mcg PO daily resume Eliquis hold on discharge until tomorrow, make sure HR is stable (3) CAD (coronary artery disease): Plan: Multivessel CAD: RCA, LCX, LAD, L-main and ramus - Cardiac cath 2001 and 2006 collateral flow with medical management - Continue statin - Metoprolol for rate control (4) Hypertension: Plan: Controlled - - will continue metoprolol (5) Hyperlipidemia: Plan: Continue statin (6) Iron (Fe) deficiency anemia: Plan: Is on iron replacement as outpatient - MCV 100 (7) COPD (chronic obstructive pulmonary disease): Plan: Stable no frequent exacerbations - Continue roflumilast, (8) Depression: Plan: Continue quetiapine mood stable today, making jokes tearful at times, misses her family, getting less optimistic about recovery, has only been home 2 days the past 3 months (9) Abnormal CT of the abdomen: Plan: Chronic proctocolitis with SMA stenosis - she has had frequent diarrhea, Cdif negative in recent past- normal WBC - Previously treated diarrhea with Cipro and Flagyl PO and Imodium- we are not at that point currently - Follows with [facility] GI Admission and Anticipated Discharge Date Admission Date: June 17, 2021 Subjective patient having some issues with RVR, rates up to 140-160's at times, taking the Metoprolol 50mg BID, needed Lopressor 5mg IV to break rate this morning taking Digoxin, no symptoms when she is in RVR BP is low normal, no hypotensive episodes, will try increasing to 50mg TID moving bowels, small, soft BM breathing well, no fever, no chest pain, still very weak eating better, had about a 1/3 of her telugu toast, ate tomato soup and ice cream for lunch her family is coming to visit this afternoon, she is looking forward to seeing them Review of Systems Review of Systems: All systems reviewed & are unremarkable except as noted in Subjective Constitutional: + weakness Gastrointestinal: + early satiety Psychiatric: + depression Physical Exam Constitutional: well developed, + frail appearing and comfortable; no acute distress Neck: trachea midline, no thyromegaly Respiratory: normal respiratory effort, lungs clear to auscultation Cardiovascular: Rate/Rhythm: + tachycardic and + irregularly irregular Heart Sounds: normal S1 and normal S2; no murmur Vessels: no JVD Extremities: normal capillary refill; no edema Gastrointestinal (Abdomen): normal bowel sounds, soft, nontender, no hepatosplenomegaly Musculoskeletal: Head/Neck/Chest: normocephalic, head atraumatic and neck supple Extremities: extremities normal to inspection and + abnormal strength Skin: no rashes, warm and dry Neurologic: patellar DTR's 2+ bilat, sensation intact and PERRL, EOMI, accommodation nl, no face palsy, no dysarthria Psychiatric: Orientation: alert and oriented x 3 Mood: + depressed mood Results & Data Results & Data ([facility]) Vital Signs (Past 12 Hours) Vital Signs Temp Pulse Pulse Pulse Resp BP BP 06/22/21 11:28 36.5 C 85 22 106/64 06/22/21 08:27 149 H 119/89 06/22/21 07:22 36.5 C 109 H 18 130/96 06/22/21 03:56 36.5 C 87 16 139/66 06/22/21 00:03 36.4 C L 88 16 103/53 L Pulse Ox 06/22/21 11:28 97 06/22/21 08:27 06/22/21 07:22 94 06/22/21 03:56 92 06/22/21 00:03 91 Medications Administered Current Inpatient Medications Acetaminophen (Acetaminophen 325 Mg Tab) 650 mg PO Q4H PRN PRN Reason: Pain or Fever Stop: 07/17/21 19:41 Apixaban (Apixaban 5 Mg Tablet) 5 mg PO BID [facility] Stop: 07/21/21 08:59 Last Admin: 06/22/21 07:55 Dose: 5 mg Documented by: Digoxin (Digoxin 0.125 Mg Tab) 0.125 mg PO DAILY@1600 [facility] Stop: 07/21/21 15:59 Last Admin: 06/21/21 15:01 Dose: 0.125 mg Documented by: Famotidine (Famotidine 20 Mg Tab) 20 mg PO BIDM [facility] Stop: 07/18/21 07:59 Last Admin: 06/22/21 07:56 Dose: 20 mg Documented by: Lamotrigine (Lamotrigine 100 Mg Tab) 100 mg PO DAILY [facility] Stop: 07/18/21 08:59 Last Admin: 06/22/21 07:55 Dose: 100 mg Documented by: Metoprolol Tartrate (Metoprolol Tartrate 1 Mg/Ml Vial) 5 mg IV Q4H PRN PRN Reason: HR GREATER THAN 110 Stop: 07/17/21 18:25 Last Admin: 06/22/21 08:27 Dose: 5 mg Documented by: Metoprolol Tartrate (Metoprolol Tartrate 50 Mg Tab) 50 mg PO TID [facility] Stop: 07/22/21 13:59 Mirtazapine (Mirtazapine Tab 15 Mg Tab) 15 mg PO [facility] Stop: 07/17/21 20:59 Last Admin: 06/21/21 21:13 Dose: 15 mg Documented by: Nitroglycerin (Nitroglycerin Sl 0.4 Mg/Tab Tab) 0.4 mg SL UD PRN PRN Reason: Angina Stop: 07/17/21 19:41 Ondansetron HCl (Ondansetron 4 Mg Od Tab) 4 mg PO Q8H PRN PRN Reason: nausea and vomiting Pantoprazole Sodium ([facility] 40 Mg Tab) [facility]: 07/20/21 08:59 Last Admin: 06/22/21 07:56 Dose: 40 mg Documented by: Polyethylene Glycol (Polyethylene (Miralax) 17 Gm Pack) 17 gm PO DAILY PRN PRN Reason: Constipation Stop: 07/17/21 19:41 Pregabalin (Pregabalin 75 Mg Cap) 75 mg PO [facility] Stop: 07/17/21 20:59 Last Admin: 06/21/21 21:13 Dose: 75 mg Documented by: Quetiapine Fumarate (Quetiapine Fumarate 100 Mg Tablet) 100 mg PO [facility] Stop: 07/17/21 20:59 Last Admin: 06/21/21 21:13 Dose: 100 mg Documented by: Roflumilast (Roflumilast 500 Mcg Tab) 500 mcg PO QAM [facility] Stop: 07/18/21 08:59 Last Admin: 06/22/21 07:57 Dose: 500 mcg Documented by: Rosuvastatin Calcium (Rosuvastatin Calcium 10 Mg Tab) 10 mg PO [facility] Stop: 07/17/21 20:59 Last Admin: 06/21/21 21:13 Dose: 10 mg Documented by: Thiamine HCl (Thiamine Hcl 100 Mg Tab) 100 mg PO QAM [facility] Stop: 07/18/21 08:59 Last Admin: 06/22/21 07:56 Dose: 100 mg Documented by: PG Care Time/CCT Total # of Minutes Spent Total Time Spent: 32 Total Time Spent with Patient: Total time spent is greater than 50% in coordination of care (as documented) at patient's floor/unit and/or counseling patient: Coding Level of Care Code 20040 Subseq Hosp Care Lvl 3 (25 - SIGNIFICANT, SEPARATELY IDENTIFIABLE ) Diagnoses GI bleed K92.2 Atrial fibrillation I48.91 CAD (coronary artery disease) I25.10 Hypertension I10 Hypertension type: essential hypertension Hyperlipidemia E78.5 Hyperlipidemia type: unspecified Iron (Fe) deficiency anemia D50.9 Iron deficiency anemia type: unspecified iron deficiency COPD (chronic obstructive pulmonary disease) J44.9 COPD type: unspecified COPD Depression F32.[address] of the abdomen R93.5 (1) Hypertension Hypertension type: essential hypertension Qualified Code(s): I10 - Essential (primary) hypertension (2) Hyperlipidemia Hyperlipidemia type: unspecified Qualified Code(s): E78.5 - Hyperlipidemia, unspecified (3) Iron (Fe) deficiency anemia Iron deficiency anemia type: unspecified iron deficiency Qualified Code(s): D50.9 - Iron deficiency anemia, unspecified (4) COPD (chronic obstructive pulmonary disease) COPD type: unspecified COPD Qualified Code(s): J44.9 - Chronic obstructive pulmonary disease, unspecified
[2021-06-22] MEDS: DIGOXIN 0.125 MG TAB PO SCH (14:52)
[2021-06-22] MEDS: QUEtiapine FUMARATE 100 MG TABLET PO SCH (21:09)
[2021-06-22] MEDS: ROSUVASTATIN CALCIUM 10 MG TAB PO SCH (21:09)
[2021-06-22] MEDS: PREGABALIN 75 MG CAP PO SCH (21:09)
[2021-06-22] MEDS: MIRTAZAPINE TAB 15 MG TAB PO SCH (21:09)
[2021-06-23 06:33] LABS: Hematocrit (blood only) 34.2 % (37-47); Hemoglobin 10.8 g/dL (12.0-16.0); Mean Corpuscular Hgb Conc 31.6 g/dL (32-36); Mean Platelet Volume 10.2 fL (7.4-10.4); Platelet Count 167 K/uL (130-400); RDW Coefficient of Variation 16.8 % (11.5-14.5); RDW Standard Deviation 57.3 fL (36.4-46.3); White Blood Count 4.73 K/uL (4.8-10.8)
[2021-06-23 06:53] LABS: BUN Creatinine Ratio 8.5 (10-20); Calcium 8.2 mg/dl (8.5-10.1); Creatinine Clr Calc Pharmacy 51.6 ml/min; Est GFR (African American) 90.8 ml/min; Est GFR (Non-African American) 78.3 ml/min; Potassium 3.1 mmol/L (3.5-5.1)
[2021-06-23] MEDS ORDERED: POTASSIUM CHLORIDE CRTAB 20 MEQ TABCR PO SCH (08:00)
[2021-06-23] MEDS: THIAMINE HCL 100 MG TAB PO SCH (08:15)
[2021-06-23] MEDS: ROFLUMILAST 500 MCG TAB PO SCH (08:15)
[2021-06-23] MEDS: FAMOTIDINE 20 MG TAB PO SCH ×2 (08:15→15:28)
[2021-06-23] MEDS: APIXABAN 5 MG TABLET PO SCH (08:16)
[2021-06-23] MEDS: METOPROLOL TARTRATE 50 MG TAB PO SCH ×2 (08:16→14:46)
[2021-06-23] MEDS: PANTOprazole 40 MG TAB PO SCH (08:16)
[2021-06-23] MEDS: lamoTRIgine 100 MG TAB PO SCH (08:16)
--- NOTE | 2021-06-23 12:02 | Discharge Summary ---
Date of Service June 23, 2021 Admission HPI Per Admitting Provider 81 YOF with past medical history of : Left hip replacement 03/08, CAD, HTN, HLD, Breast CA (radiation treatment only, Lumpectomy, anemia, CKD III, COPD, myopathy tremors, Afib (on Eliquis),HLD, Hypothyroidism, FE deficient anemia, proctocolitis, anorexia, GERD, Bi-polar and depression with recent admission for anorexia. She comes to the emergency room today for complaints of lightheadedness, frequent dark stools. She endorses 3-4 days of increased stools , she has some baseline loose stools at baseline. She is unsure of when she last took her Eliquis, but knows it was once today. She is noted to be tachycardic into the 130-140s in the EMD with adequate BP at her baseline 110s/70-80. In the EMD she had routine labs drawn which revealed a HGB level of 7.6 with MCV of 100. Her normal HGB/HCT is ~9.0 and platelet count of 222. Her heme test was positive in the EMD with black stool noted, but no yusra blood reported. Patient also denies any yusra bleeding or hematemesis. She does endorse some generalized burning in her epigastrium area, but denies any hematemesis or vomiting. She had a ECG done, CXR and CT of the abdomen. The CT of the abdomen again revealed non-specific colitis involving rectosigmoid similar to 04/16/21. The patient will be admitted to PCU for GI bleed, transfused 2 units of PRBC and follow her HGB and HR response. She was started on a Protonix drip following a bolus in the EMD, will continue. She will be NPO except for meds. GI has been consulted. Patient has had a multiple admissions and difficult recovery following her hip replacement in March 08; to include atrial fibrillation in which she was placed on Eliquis in March. She has had some other episodes of dark stools and mildly decreased hgb in the recent past. She had a recent EGD done secondary to thick ened esophagus noted on CT scan and the EGD was normal at that time. She Also has repeatedly tested positive for COVID 19 despite having her vaccination. She has multiple positive and negative tests. She recently tested negative for COVID in May 31 and is POSITIVE on today's test. She will be admitted to isolation and retest as indicated. She is asymptomatic from a COVID perspective. Principal Diagnosis GI bleed, blood loss anemia Discharge Exam Constitutional well developed, + frail appearing and comfortable; no acute distress Neck trachea midline, no thyromegaly Respiratory normal respiratory effort, lungs clear to auscultation Cardiovascular Rate/Rhythm: regular rate and + irregularly irregular Heart Sounds: normal S1 and normal S2; no murmur Vessels: no JVD Extremities: normal capillary refill; no edema Gastrointestinal (Abdomen) normal bowel sounds, soft, nontender, no hepatosplenomegaly Musculoskeletal Head/Neck/Chest: normocephalic, head atraumatic and neck supple Extremities: extremities normal to inspection and + abnormal strength Skin no rashes, warm and dry Neurologic patellar DTR's 2+ bilat, sensation intact and PERRL, EOMI, accommodation nl, no face palsy, no dysarthria Psychiatric Orientation: alert and oriented x 3 Affect: euthymic affect Discharge Data Allergies Allergy/AdvReac Type Severity Reaction Status Date / Time metoclopramide Allergy Intermediate ESSENTIAL Verified 06/19/21 14:18 TREMORS clopidogrel Allergy Mild HIVES Verified 06/19/21 14:18 diazepam Allergy Mild DEPRESSION Verified 06/19/21 14:18 diltiazem Allergy Mild Light Verified 06/19/21 14:18 headed erythromycin base Allergy Mild EES, TAKES Verified 06/19/21 14:18 Z-PACKS W/O RXN gabapentin Allergy Mild States Verified 06/19/21 14:18 hands catch fire latex Allergy Mild rips skin Verified 06/19/21 14:18 off lisinopril Allergy Mild COUGH Verified 06/19/21 14:18 losartan Allergy Mild HIVES Verified 06/19/21 14:18 micafungin Allergy Mild rash Verified 06/19/21 14:18 oxycodone Allergy Mild INC. Verified 06/19/21 14:18 DEPRESSION Penicillins Allergy Mild Diarrhea Verified 06/19/21 14:18 promethazine Allergy Mild TROUBLE Verified 06/19/21 14:18 FOCUSING SPEAKING AT HIGHER DOSES Sulfa (Sulfonamide Allergy Mild SKIN Verified 06/19/21 14:18 Antibiotics) BECOMES PHOTOSENSITIVE AND BECOMES RED bupropion Allergy Unknown unknown Verified 06/19/21 14:18 dicyclomine Allergy Unknown Unknown Verified 06/19/21 14:18 potassium chloride Allergy Unknown Unknown Verified 06/19/21 14:18 sucralfate Allergy Unknown Unknown Verified 06/19/21 14:18 Jexvfds-Iwp-Hnw Reductase AdvReac Intermediate Diarrhea Verified 06/19/21 14:18 Inhibitor amoxicillin AdvReac Mild DIARRHEA Verified 06/19/21 14:18 clavulanic acid AdvReac Mild DIARRHEA Verified 06/19/21 14:18 hydrocodone AdvReac Mild "dont like Verified 06/19/21 14:18 how it makes me feel" Consultations 06/17/21 17:50 ED Decision to Admit Stat 06/17/21 19:42 Consult Gastroenterology Routine Procedures Performed Operation Date: 06/19/21 17:00 Actual Procedures p Flexible Sigmoidoscopy Biopsy - Emmanuel Mcfarland MD s Esophagogastroduodenoscopy - Emmanuel Mcfarland MD Ordered Studies 06/17/21 16:03 CT abd pelvis IV con only Stat Hospital Course (1) GI bleed: Presumed UGI with dark stools, Heme positive in the EMD, HGB 7.6, tachycardia, elevated BUN - Protonix, initially on drip, changed to 40mg PO daily - resumed diet, eating okay, not great, but this is chronic issue, maybe related to COVID? - S/P 2 units PRBC on admission Hemoglobin has been > 9 ever since - GI consulted: EGD 06/19 with no signs of bleeding, sigmoidoscopy with no bleeding resumed Eliquis for a few days, no bleeding GI plans for capsule endoscopy as outpatient, she agrees with plan (2) Atrial fibrillation: chronic atrial fibrillation some issues with RVR while here Toprol increased to 50mg TID continue Digoxin 125mcg PO daily HR much better continue Eliquis check Digoxin level at [facility] next week consider follow up with Dr. Gibbs in next few weeks, he is her home health aid (3) CAD (coronary artery disease): Multivessel CAD: RCA, LCX, LAD, L-main and ramus no chest pain/pressure while here - Cardiac cath 2001 and 2006 collateral flow with medical management - Continue statin - Metoprolol for rate control (4) Hypertension: Controlled - - will continue metoprolol, increased to 50mg TID, BP low normal (5) Hyperlipidemia: Continue statin (6) Iron (Fe) deficiency anemia: Is on iron replacement as outpatient - MCV 100 (7) COPD (chronic obstructive pulmonary disease): Stable no frequent exacerbations - Continue roflumilast, (8) Depression: Continue quetiapine mood stable today, making jokes tearful at times, misses her family, getting less optimistic about recovery, has only been home 2 days the past 3 months (9) Abnormal CT of the abdomen: Chronic proctocolitis with SMA stenosis - she has had frequent diarrhea, Cdif negative in recent past- normal WBC - Previously treated diarrhea with Cipro and Flagyl PO and Imodium- we are not at that point currently - Follows with [facility] (10) COVID-19: h/o infection several months ago, kept testing positive but no hypoxia perhaps her anorexia the past few months has been partially due to COVID infection TESTED NEGATIVE ON DAY OF DISCHARGE Total Time Total Time Spent Total Time Spent (In Minutes): 34 minutes Discharge Plan Discharge Items Patient Disposition: Transfer Alf Fac Reason For Visit: GI BLEED Discharge Diagnosis: GI bleed Acute blood loss anemia Atrial fibrillation with RVR Condition on Discharge: Fair Goals: continue PT/OT to improve strength and mobility to get home follow up with [facility] GI for capsule endoscopy evaluation Activity: Resume your previous activity Non-emergency contact: Primary Care Provider Call non-emergency contact if: you have any medication questions Follow-up/Referrals: [facility] [Non-Staff] - (this week) Emmanuel Mcfarland MD [Physician] - (follow up 2-3 weeks for capsule endoscopy) Diet: Regular Addtl Attending Provider Instructions: Medications - METOPROLOL: increased to 50mg TID, heart rate better controlled - DIGOXIN: 125mcg daily, please check a digoxin level next week some time Anemia, evidence of GI bleeding normal EGD and sigmoidoscopy, GI recommends getting capsule endoscopy as outpatient no signs of bleeding for a week now, Hb is stable, trending up continue with PT/OT at [facility], her goal is to get back home Pending Studies at Discharge: No Stand-Alone Forms: [facility] Skilled Items Patient informed of condition?: Yes DNR: No Discharge Level of Care: Skilled Communicable Disease: No Discharge Prognosis: Improving Lines: None Urinary Catheter: No Medications and DC Order Prescriptions: New metoprolol tartrate 50 mg Tablet 50 mg PO TID 30 Days Qty: 90 RF: 2 digoxin [Digitek] 125 mcg (0.125 mg) Tablet 125 mcg PO DAILY@1600 30 Days Qty: 30 RF: 1 Continued (DME) Oxygen Home Liters Per Minute See Rx Instructions .ROUTE .MEDSUPPLY Qty: 1 RF: 0 rosuvastatin 10 mg tablet 10 mg PO HS RF: 0 cholecalciferol (vitamin D3) 25 mcg (1,000 unit) capsule 25 mcg PO DAILY RF: 0 cyanocobalamin (vitamin B-12) 5,000 mcg capsule 5,000 mcg PO DAILY RF: 0 nitroglycerin [Nitrostat] 0.4 mg Tablet, Sublingual 0.4 mg Sublingual UD PRN (Reason: Angina) RF: 0 roflumilast 500 mcg tablet 500 mcg PO QAM RF: 0 quetiapine 100 mg Tablet 100 mg PO HS Qty: 30 RF: 0 mirtazapine 15 mg Tablet 15 mg PO HS Qty: 30 RF: 0 potassium chloride [Klor-Con M10] 10 mEq Tablet,Er Particles/Crystals 10 meq PO QAM Qty: 30 RF: 0 thiamine HCl (vitamin B1) [Vitamin B-1] 100 mg Tablet 100 mg PO QAM Qty: 30 RF: 0 pantoprazole 40 mg Tablet,Delayed Release (Dr/Ec) 40 mg PO QAM Qty: 30 RF: 0 folic acid 1 mg Tablet 1 mg PO QAM Qty: 30 RF: 0 Certavite-Antioxidant 18-400 mg-mcg Tablet 1 tab PO QAM Qty: 30 RF: 0 aspirin 81 mg Tablet,Chewable 81 mg PO DAILY RF: 0 loperamide 2 mg Tablet 2 mg PO TID RF: 0 famotidine 20 mg Tablet 20 mg PO BIDM RF: 0 lamotrigine [Lamictal] 100 mg Tablet 100 mg PO DAILY RF: 0 ferrous gluconate 324 mg (38 mg iron) Tablet 324 mg PO BIDM Qty: 60 RF: 0 ondansetron HCl [Zofran] 4 mg tablet 4 mg PO Q8H PRN (Reason: nausea and vomiting) Qty: 6 RF: 0 pregabalin 75 mg capsule 75 mg PO HS Qty: 30 RF: 0 Eliquis 5 mg tablet 5 mg PO BID Qty: 30 RF: 1 Discontinued metoprolol tartrate 25 mg Tablet 25 mg PO TID 30 Days Qty: 90 RF: 3 Discharge Orders: Discharge Order (Routine); Ordered 06/23/21 Ordered By: Chago Iniguez/Other Patient Handouts: Bleeding Gastrointestinal Admission Data Admit Date/Time: 06/17/21 18:25 Attending Provider: Chago Gould Admit Provider: Aly Rodrigues Primary Care Provider: Abiel Clark Other Providers: La Lopez ; Emmanuel Mcfarland ; [facility] Other Interventions: Discharge Summary Assessment (RN) Last Done: 06/23/21 12:56 Coding Level of Care Code D/C DAY MANAGEMENT >30 MINS Diagnoses GI bleed K92.2 Atrial fibrillation I48.91 CAD (coronary artery disease) I25.10 Hypertension I10 Hypertension type: essential hypertension Hyperlipidemia E78.5 Hyperlipidemia type: unspecified Iron (Fe) deficiency anemia D50.9 Iron deficiency anemia type: unspecified iron deficiency COPD (chronic obstructive pulmonary disease) J44.9 COPD type: unspecified COPD Depression F32.[address] of the abdomen R93.5 COVID-19 U07.1
[2021-06-23] MEDS: DIGOXIN 0.125 MG TAB PO SCH (15:28)
== END 2021-06-23 15:46 | DRG 377 ==
LOC: ED 15:47 → 2E 18:25 → SUATTDRO 18:25 → 2E 19:18
DX: F31.9 Bipolar disorder, unspecified; Z88.8 Allergy status to other drugs, medicaments and biological substances; Z83.3 Family history of diabetes mellitus; I48.20 Chronic atrial fibrillation, unspecified; Z87.891 Personal history of nicotine dependence; D62 Acute posthemorrhagic anemia; Z88.0 Allergy status to penicillin; K51.219 Ulcerative (chronic) proctitis with unspecified complications; Z92.3 Personal history of irradiation; I25.10 Atherosclerotic heart disease of native coronary artery without angina pectoris; Z96.642 Presence of left artificial hip joint; Z79.01 Long term (current) use of anticoagulants; Z88.2 Allergy status to sulfonamides; Z88.5 Allergy status to narcotic agent; J44.9 Chronic obstructive pulmonary disease, unspecified; K57.90 Diverticulosis of intestine, part unspecified, without perforation or abscess without bleeding; Z85.3 Personal history of malignant neoplasm of breast; I10 Essential (primary) hypertension; R00.0 Tachycardia, unspecified; E03.9 Hypothyroidism, unspecified; Z91.040 Latex allergy status; K92.1 Melena; K55.1 Chronic vascular disorders of intestine; U07.1 COVID-19

== ENCOUNTER 2021-07-09 23:56 | Inpatient (IN) ==
[2021-07-10 00:18] LABS: Basophils # (auto) 0.04 K/uL (0-0.2); Basophils % (auto) 0.6 %; Eosinophils % (auto) 1.5 %; Hematocrit (blood only) 30.9 % (37-47); Immature Granulocytes # (auto) 0.01 K/uL (0.00-0.02); Immature Granulocytes % (auto) 0.1 %; Lymphocytes # (auto) 2.24 K/uL (1.2-3.4); Lymphocytes % (auto) 32.7 %; Mean Corpuscular Hemoglobin 30.4 pg (25-34); Mean Corpuscular Hgb Conc 32.4 g/dL (32-36); Mean Corpuscular Volume 93.9 fL (80-100); Mean Platelet Volume 9.5 fL (7.4-10.4); Monocytes # (auto) 0.85 K/uL (0.11-0.59); Monocytes % (auto) 12.4 %; Neutrophils # (auto) 3.61 K/uL (1.4-6.5); Neutrophils % (auto) 52.7 %; Platelet Count 198 K/uL (130-400); RDW Coefficient of Variation 16.1 % (11.5-14.5); RDW Standard Deviation 55.5 fL (36.4-46.3); Red Blood Count 3.29 M/uL (4.2-5.4); White Blood Count 6.85 K/uL (4.8-10.8)
--- NOTE | 2021-07-10 00:26 | Emergency Department Note ---
Impression & Plan Acute alteration in mental status, Fall Admit to the [facility] service ED Provider Note NAME: NELLIE ANDERSON AGE: 81 SEX: F ARRIVES VIA: Ambulance INFORMANT: EMS ED PROVIDER(S): Peyton Dickerson DO CHIEF COMPLAINT: Fall from bed and altered mental status PLAN: Disposition: Admission Condition: Guarded MEDICAL DECISION MAKING: This is a 81-year-old female patient from [facility] who presents to the emergency department with confusion. Nursing staff heard the patient fall from bed and found her with slurred speech but no obvious signs of trauma. Daughter explains that the patient has not been cognitively well since a hip surgery in February. CT scan of the brain was unremarkable. Work-up was essentially negative. The patient looks dehydrated on exam. The daughter describes that the patient has very little oral intake. The patient speech seems slurred. Her words are difficult to understand. She is moving all four extremities. She does have evidence of bruises about all four extremities. She is on Eliquis. I discussed the case with the [facility] and they will evaluate for further management. Triage Nursing notes reviewed and agree with them. Additional history obtained from the patient's daughter and have presented to the emergency department. Prior medical records reviewed Vital Signs: reviewed and unremarkable Differential diagnosis: Intracranial hemorrhage; acute CVA; UTI, delirium Diagnostics interpreted by me: ECG: Atrial fibrillation at a rate of [address] segment depression in the inferior and lateral leads which is significantly worse compared to the beginning of June. Cardiac Monitoring: A. fib at a rate of 72 Laboratory studies: See below Imaging studies: As per stat rad CT head: No intracranial hemorrhage, mass-effect or edema. Atrophy with chronic white matter changes and scattered chronic lacunar infarcts. Chronic cerebellar infarcts. Paranasal sinus and mastoid air cells are clear. No fracture CTA head: No arterial occlusion, high-grade stenosis, aneurysm or dissection. Diminutive right vertebral artery. CTA neck: No traumatic vascular injury. Mild scattered atheromatous disease. Diminutive right vertebral artery. No visualized fracture. HPI: 81/F arrives for evaluation of fall and altered mental status. This is a 81-year-old female patient from [facility] who presents to the emergency department with confusion. Nursing staff heard the patient fall from bed and found her with slurred speech but no obvious signs of trauma. Daughter explains that the patient has not been cognitively well since a hip surgery in February. There was concern that the patient was having a stroke. ROS: Could not complete a review of systems with the patient due to her altered mental status. PAST MEDICAL HISTORY:See Below PAST SURGICAL HISTORY:See Below FAMILY HISTORY:See Below SOCIAL HISTORY:See Below HOME MEDICATIONS:See list ALLERGIES:See list VITALS:See Below PHYSICAL EXAMINATION: HEENT: Head - normocephalic and atraumatic. Pupils are equal, round, and reactive to light. Extraocular eye muscles are intact and sclera are anicteric. Nose - moist nasal mucosa without discharge. Mouth - moist buccal mucosa. Oropharynx is nonerythematous and there is no tonsillar exudate or edema noted. Neck: Supple; no cervical lymphadenopathy or JVD Heart: Irregularly irregular rhythm with a controlled rate there is a normal S1 and S2 with no murmurs, clicks, or gallops appreciated. Lungs: Clear to auscultation bilaterally with no wheezes, rales, or rhonchi. Abdomen: Soft, completely nontender, nondistended, with good bowel sounds. There are no palpable pulsatile masses or hepatosplenomegaly. There is no guarding, rigidity, or rebound noted. Extremities: Multiple contusions about her arms and legs in different stages of healing. Some of these appear to be acute Neuro:The patient is lethargic and has garbled speech. She does follow commands. Muscle strength is 4/5 in all 4 extremities. Muscle strength is 5/5 in all 4 extremities. The patient has equal vaccine manager strength and equal pedal push and pull. There are no cerebellar signs. ED COURSE: Times/Reassessments: 0000 the patient was evaluated in room C5. A complete hist ory and physical was performed. I spoke with EMS per medical command who gave most of the history stating with the patient was found on the floor beside her bed at [facility]. Nursing staff heard her fall from the bed. She had an altered mental status when they arrived at her bedside. They state that she normally ambulates on her own and has clear speech. Patient's family arrived at her bedside here in the emergency department and states that her speech is normally clear but she is not cognitively intact since February of this year after suffering a hip fracture. An order was placed for continuous cardiac monitoring. The patient was in A. fib at a rate of 72. Laboratory studies were drawn as above. The patient went for CT scan of the brain. A urine analysis was sent. I discussed the case with the [facility] hospitalist and they will evaluate for further management. Peyton Dickerson DO Past Med/Surg History Medical History Anemia REASON FOR COLONOSCOPY 07/2019 Atrial fibrillation Atrial fibrillation with rapid ventricular response Bipolar 1 disorder Breast cancer (08/23/14) "Abnormal bilateral mammogram Status post core needle biopsy 08/23/2014 revealing intraductal papilloma on the left Right breast showed invasive ductal carcinoma Status post right lumpectomy and sentinel lymph node biopsy 10/08/2014 Stage [id number] Status post completion of radiation therapy 12/24/2014 utilizing hypo-fractionation received 5000 cGy" Breast cancer, right 2013--stage 1--lumpectomy and radiation Change in vision Chronic obstructive pulmonary disease inhaler daily Closed fracture of left hip Degenerative joint disease Depression Elevated troponin I level Fall Folate deficiency anemia GERD (gastroesophageal reflux disease) Heme + stool History of colon polyps Hyperlipidemia Hypertension Hypokalemia Hypothyroidism Medical marijuana use Myocardial Infarction "silent" in --follows with Dr. Gibbs On home oxygen therapy 2L N/C at hs Pancreatitis hx of Papilloma of breast left Sleep apnea Temporal arteritis Unstable angina Unstable angina Surgical History History of bilateral cataract extraction History of bilateral tubal ligation History of breast surgery removal of papilloma of left breast History of cardiac cath x3--last ---no stents History of cholecystectomy History of colonoscopy History of esophagogastroduodenoscopy (EGD) History of lumpectomy of right breast History of right breast biopsy malignant History of tooth extraction all teeth removed History of total hysterectomy with bilateral salpingo-oophorectomy (BSO) Family History Grandfather (Paternal) Family history of diabetes mellitus Other No family history of adverse response to anesthesia Social History Smoking Status: Former smoker Cigarettes Per Day: 20 a day; Second Hand Exposure: No; Hx Alcohol Use: No Hx Substance Use: No Preferred Language: Slovenian Communication Ability: Impaired Recordak Operator Required: No Beliefs That Will Affect Care: None marital status: Current Living Situation: Senior Living Feels Safe at Home: Yes Assistive Devices: None Allergies Allergies Allergy/AdvReac Type Severity Reaction Status Date / Time metoclopramide Allergy Intermediate ESSENTIAL Verified 07/10/21 00:25 TREMORS clopidogrel Allergy Mild HIVES Verified 07/10/21 00:25 diazepam Allergy Mild DEPRESSION Verified 07/10/21 00:25 diltiazem Allergy Mild Light Verified 07/10/21 00:25 headed erythromycin base Allergy Mild EES, TAKES Verified 07/10/21 00:25 Z-PACKS W/O RXN gabapentin Allergy Mild States Verified 07/10/21 00:25 hands catch fire latex Allergy Mild rips skin Verified 07/10/21 00:25 off lisinopril Allergy Mild COUGH Verified 07/10/21 00:25 losartan Allergy Mild HIVES Verified 07/10/21 00:25 micafungin Allergy Mild rash Verified 07/10/21 00:25 oxycodone Allergy Mild INC. Verified 07/10/21 00:25 DEPRESSION Penicillins Allergy Mild Diarrhea Verified 07/10/21 00:25 promethazine Allergy Mild TROUBLE Verified 07/10/21 00:25 FOCUSING SPEAKING AT HIGHER DOSES Sulfa (Sulfonamide Allergy Mild SKIN Verified 07/10/21 00:25 Antibiotics) BECOMES PHOTOSENSITIVE AND BECOMES RED bupropion Allergy Unknown unknown Verified 07/10/21 00:25 dicyclomine Allergy Unknown Unknown Verified 07/10/21 00:25 potassium chloride Allergy Unknown Unknown Verified 07/10/21 00:25 sucralfate Allergy Unknown Unknown Verified 07/10/21 00:25 Oqlkvjc-Kss-Srl Reductase AdvReac Intermediate Diarrhea Verified 07/10/21 00:25 Inhibitor amoxicillin AdvReac Mild DIARRHEA Verified 07/10/21 00:25 clavulanic acid AdvReac Mild DIARRHEA Verified 07/10/21 00:25 hydrocodone AdvReac Mild "dont like Verified 07/10/21 00:25 how it makes me feel" Home Meds Home Medications Medication Instructions Recorded Confirmed nitroglycerin 0.4 mg sublingual 0.4 mg SUBLINGUAL UD PRN 01/01/19 07/10/21 tablet (Nitrostat) roflumilast 500 mcg tablet 500 mcg PO QAM 01/01/19 07/10/21 Oxygen Home #1 ea 07/21/20 07/10/21 cholecalciferol (vitamin D3) 25 25 mcg PO DAILY 01/11/21 07/10/21 mcg (1,000 unit) capsule cyanocobalamin (vitamin B-12) 5,000 mcg PO DAILY 01/11/21 07/10/21 5,000 mcg capsule rosuvastatin 10 mg tablet 10 mg PO HS 01/11/21 07/10/21 aspirin 81 mg chewable tablet 81 mg PO DAILY 06/17/21 07/10/21 famotidine 20 mg tablet 20 mg PO BIDM 06/17/21 07/10/21 loperamide 2 mg tablet 4 mg PO Q12 PRN 06/17/21 07/10/21 acetaminophen 325 mg tablet 325 mg PO Q6 PRN MDD 3g 07/10/21 07/10/21 (Tylenol) colestipol 1 gram tablet (Colestid) 2 g PO BID 07/10/21 07/10/21 lamotrigine 150 mg tablet 150 mg PO HS 07/10/21 07/10/21 quetiapine 50 mg tablet 50 mg PO Q12 PRN 07/10/21 07/10/21 Previous Rx's Medication Instructions Recorded ferrous gluconate 324 mg (38 mg 324 mg PO BIDM #60 tab 03/11/21 iron) tablet ondansetron HCl 4 mg tablet 4 mg PO Q8H PRN #6 tab 03/11/21 (Zofran) pregabalin 75 mg capsule 75 mg PO HS #30 cap 03/11/21 apixaban 5 mg tablet (Eliquis) 5 mg PO BID #30 tab 04/04/21 folic acid 1 mg tablet 1 mg PO QAM #30 tab 05/31/21 mirtazapine 15 mg tablet 15 mg PO HS #30 tab 05/31/21 multivitamin-ferrous 1 tab PO QAM #30 tab 05/31/21 fumarate-folic acid 18 mg-400 mcg tablet (Certavite-Antioxidant) pantoprazole 40 mg tablet,delayed 40 mg PO QAM #30 tab 05/31/21 release potassium chloride 10 mEq 10 meq PO QAM #30 tab 05/31/21 tablet,extended release(part/cryst) (Klor-Con M) quetiapine 100 mg tablet 100 mg PO HS #30 tab 05/31/21 thiamine HCl (vitamin B1) 100 mg 100 mg PO QAM #30 tab 05/31/21 tablet (Vitamin B-1) digoxin 125 mcg (0.125 mg) tablet 125 mcg PO DAILY@1600 30 Days #30 06/23/21 (Digitek) tab metoprolol tartrate 50 mg tablet 50 mg PO TID 30 Days #90 tab 06/23/21 Results & Data (ED) Vital Signs Vital Signs - 24 hr 07/10/21 00:02 07/10/21 00:05 07/10/21 00:30 Temperature 36.7 C Temperature Source Oral Pulse Rate 69 71 68 Pulse Rate from SpO2 Sensor 65 76 Pulse Rhythm Regular Pulse Strength Normal Respiratory Rate 18 19 18 Respiratory Effort / Characteristics Non-Labored Spontaneous Respiratory Depth Normal Respiratory Pattern Regular Blood Pressure 120/67 120/67 135/69 Blood Pressure Mean 84 84 91 Blood Pressure Position Lying Pulse Oximetry 97 95 97 Oxygen Delivery Method Room Air Room Air Room Air Sepsis Recent Fever Within 48 Hours No Sepsis New/Unexplained Change in Mental Status Yes Sepsis Action Taken by Nursing No Action Required 07/10/21 01:00 07/10/21 01:30 07/10/21 02:00 Temperature Temperature Source Pulse Rate 61 53 L 61 Pulse Rate from SpO2 Sensor 59 L 51 L 65 Pulse Rhythm Pulse Strength Respiratory Rate 21 20 16 Respiratory Effort / Characteristics Respiratory Depth Respiratory Pattern Blood Pressure 98/42 L 78/38 L 121/45 L Blood Pressure Mean 60 51 70 Blood Pressure Position Pulse Oximetry 95 93 94 Oxygen Delivery Method Room Air Room Air Room Air Sepsis Recent Fever Within 48 Hours Sepsis New/Unexplained Change in Mental Status Sepsis Action Taken by Nursing Laboratory Data Result diagrams: 07/10/21 00:03 07/10/21 00:03 Lab Results 07/10/21 07/10/21 07/10/21 Range/Units 00:03 00:03 00:03 WBC 6.85 (4.8-10.8) K/uL RBC 3.29 L (4.2-5.4) M/uL Hgb 10.0 L (12.0-16.0) g/dL Hct 30.9 L (37-47) % MCV 93.9 (80-100) fL MCH 30.4 (25-34) pg MCHC 32.4 (32-36) g/dL RDW Std Deviation 55.5 H (36.4-46.3) fL RDW Coeff of Gino 16.1 H (11.5-14.5) % Plt Count 198 (130-400) K/uL MPV 9.5 (7.4-10.4) fL Immature Gran % (Auto) 0.1 % Neut % (Auto) 52.7 % Lymph % (Auto) 32.7 % Archer % (Auto) 12.4 % Eos % (Auto) 1.5 % Baso % (Auto) 0.6 % Neut # (Auto) 3.61 (1.4-6.5) K/uL Lymph # (Auto) 2.24 (1.2-3.4) K/uL Archer # (Auto) 0.85 H (0.11-0.59) K/uL Eos # (Auto) 0.10 (0-0.5) K/uL Baso # (Auto) 0.04 (0-0.2) K/uL Immature Gran # (Auto) 0.01 (0.00-0.02) K/uL ESR (0-30) mm/hr PT 13.6 H (9.0-12.0) Seconds INR 1.4 H (0.9-1.1) APTT 31.6 H (21.0-31.0) Seconds PTT Ratio 1.2 Sodium 146 H (136-145) mmol/L Potassium 4.0 (3.5-5.1) mmol/L Chloride 109 H (98-107) mmol/L Carbon Dioxide 29 (21-32) mmol/L Anion Gap 8.0 (3-11) BUN 8 (7-18) mg/dl Creatinine 1.00 (0.6-1.2) mg/dl Est Cr Clr Drug Dosing Not Reportable Est GFR ( Amer) 62.1 ml/min Est GFR (Non-Af Amer) 53.5 ml/min BUN/Creatinine Ratio 7.9 L (10-20) Glucose 89 (70-99) mg/dl Calcium 9.1 (8.5-10.1) mg/dl Magnesium 2.1 (1.8-2.4) mg/dl Total Bilirubin 0.6 (0.2-1) mg/dl AST 27 (15-37) U/L ALT 21 (12-78) U/L Alkaline Phosphatase 71 (45-117) U/L Troponin I < 0.015 (0-0.045) ng/ml Total Protein 5.6 L (6.4-8.2) gm/dl Albumin 2.2 L (3.4-5.0) gm/dl Globulin 3.4 (2.5-4.0) gm/dl Albumin/Globulin Ratio 0.6 L (0.9-2) Urine Color Urine Appearance (Clear) Urine pH (4.5-7.5) Ur Specific Rutherford (1.000-1.030) Urine Protein (Negative) Urine Glucose (UA) (Negative) Urine Ketones (Negative) Urine Blood (Negative) Urine Nitrite (Negative) Urine Bilirubin (Negative) Urine Urobilinogen (Negative) Ur Leukocyte Esterase (Negative) Urine WBC (Auto) (0-5) /hpf Urine RBC (Auto) (0-4) /hpf U Hyaline Cast (Auto) (0-5) /lpf U Epithel Cells (Auto) (0-5) /lpf Urine Bacteria (Auto) (Negative) COVID-19 Eval Order SARS-CoV-2 (PCR) (Negative) Blood Type Antibody Screen 07/10/21 07/10/21 07/10/21 Range/Units 00:11 00:12 00:40 WBC (4.8-10.8) K/uL RBC (4.2-5.4) M/uL Hgb (12.0-16.0) g/dL Hct (37-47) % MCV (80-100) fL MCH (25-34) pg MCHC (32-36) g/dL RDW Std Deviation (36.4-46.3) fL RDW Coeff of Gino (11.5-14.5) % Plt Count (130-400) K/uL MPV (7.4-10.4) fL Immature Gran % (Auto) % Neut % (Auto) % Lymph % (Auto) % Archer % (Auto) % Eos % (Auto) % Baso % (Auto) % Neut # (Auto) (1.4-6.5) K/uL Lymph # (Auto) (1.2-3.4) K/uL Archer # (Auto) (0.11-0.59) K/uL Eos # (Auto) (0-0.5) K/uL Baso # (Auto) (0-0.2) K/uL Immature Gran # (Auto) (0.00-0.02) K/uL ESR 11 (0-30) mm/hr PT (9.0-12.0) Seconds INR (0.9-1.1) APTT (21.0-31.0) Seconds PTT Ratio Sodium (136-145) mmol/L Potassium (3.5-5.1) mmol/L Chloride (98-107) mmol/L Carbon Dioxide (21-32) mmol/L Anion Gap (3-11) BUN (7-18) mg/dl Creatinine (0.6-1.2) mg/dl Est Cr Clr Drug Dosing Est GFR ( Amer) ml/min Est GFR (Non-Af Amer) ml/min BUN/Creatinine Ratio (10-20) Glucose (70-99) mg/dl Calcium (8.5-10.1) mg/dl Magnesium (1.8-2.4) mg/dl Total Bilirubin (0.2-1) mg/dl AST (15-37) U/L ALT (12-78) U/L Alkaline Phosphatase (45-117) U/L Troponin I (0-0.045) ng/ml Total Protein (6.4-8.2) gm/dl Albumin (3.4-5.0) gm/dl Globulin (2.5-4.0) gm/dl Albumin/Globulin Ratio (0.9-2) Urine Color Urine Appearance (Clear) Urine pH (4.5-7.5) Ur Specific Rutherford (1.000-1.030) Urine Protein (Negative) Urine Glucose (UA) (Negative) Urine Ketones (Negative) Urine Blood (Negative) Urine Nitrite (Negative) Urine Bilirubin (Negative) Urine Urobilinogen (Negative) Ur Leukocyte Esterase (Negative) Urine WBC (Auto) (0-5) /hpf Urine RBC (Auto) (0-4) /hpf U Hyaline Cast (Auto) (0-5) /lpf U Epithel Cells (Auto) (0-5) /lpf Urine Bacteria (Auto) (Negative) COVID-19 Eval Order Covid19 at [facility] SARS-CoV-2 (PCR) (Negative) Blood Type B Positive Antibody Screen NEGATIVE 07/10/21 07/10/21 Range/Units 00:40 02:35 WBC (4.8-10.8) K/uL RBC (4.2-5.4) M/uL Hgb (12.0-16.0) g/dL Hct (37-47) % MCV (80-100) fL MCH (25-34) pg MCHC (32-36) g/dL RDW Std Deviation (36.4-46.3) fL RDW Coeff of Gino (11.5-14.5) % Plt Count (130-400) K/uL MPV (7.4-10.4) fL Immature Gran % (Auto) % Neut % (Auto) % Lymph % (Auto) % Archer % (Auto) % Eos % (Auto) % Baso % (Auto) % Neut # (Auto) (1.4-6.5) K/uL Lymph # (Auto) (1.2-3.4) K/uL Archer # (Auto) (0.11-0.59) K/uL Eos # (Auto) (0-0.5) K/uL Baso # (Auto) (0-0.2) K/uL Immature Gran # (Auto) (0.00-0.02) K/uL ESR (0-30) mm/hr PT (9.0-12.0) Seconds INR (0.9-1.1) APTT (21.0-31.0) Seconds PTT Ratio Sodium (136-145) mmol/L Potassium (3.5-5.1) mmol/L Chloride (98-107) mmol/L Carbon Dioxide (21-32) mmol/L Anion Gap (3-11) BUN (7-18) mg/dl Creatinine (0.6-1.2) mg/dl Est Cr Clr Drug Dosing Est GFR ( Amer) ml/min Est GFR (Non-Af Amer) ml/min BUN/Creatinine Ratio (10-20) Glucose (70-99) mg/dl Calcium (8.5-10.1) mg/dl Magnesium (1.8-2.4) mg/dl Total Bilirubin (0.2-1) mg/dl AST (15-37) U/L ALT (12-78) U/L Alkaline Phosphatase (45-117) U/L Troponin I (0-0.045) ng/ml Total Protein (6.4-8.2) gm/dl Albumin (3.4-5.0) gm/dl Globulin (2.5-4.0) gm/dl Albumin/Globulin Ratio (0.9-2) Urine Color Dark Yellow Urine Appearance Clear (Clear) Urine pH 5.0 (4.5-7.5) Ur Specific Rutherford 1.017 (1.000-1.030) Urine Protein Negative (Negative) Urine Glucose (UA) Negative (Negative) Urine Ketones Negative (Negative) Urine Blood Negative (Negative) Urine Nitrite Negative (Negative) Urine Bilirubin Negative (Negative) Urine Urobilinogen Negative (Negative) Ur Leukocyte Esterase Trace H (Negative) Urine WBC (Auto) 1-5 (0-5) /hpf Urine RBC (Auto) 0-4 (0-4) /hpf U Hyaline Cast (Auto) 1-5 (0-5) /lpf U Epithel Cells (Auto) 10-20 H (0-5) /lpf Urine Bacteria (Auto) 1+ H (Negative) COVID-19 Eval Order SARS-CoV-2 (PCR) POSITIVE A* (Negative) Blood Type Antibody Screen Administered Medications Famotidine 20 mg/ Syringe 5 mls @ 2.5 mls/min IV Q12H JANINE Stop: 08/09/21 08:59 Last Admin: 07/10/21 20:48 Dose: 2.5 mls/min Documented by: [id number] Admin: 07/10/21 09:00 Dose: 2.5 mls/min Documented by: [id number] Discontinued Medications Sodium Chloride (Nss) 500 mls @ 999 mls/hr IV .Q31M ONE Stop: 07/10/21 04:08 Last Infusion: 07/10/21 02:00 Dose: 0 mls/hr Documented by: [id number] Admin: 07/10/21 01:30 Dose: 999 mls/hr Documented by: [id number] Ioversol (Optiray 320 125ml) 125 ml IV ONCE ONE Stop: 07/10/21 00:37 Last Admin: 07/10/21 00:37 Dose: 119 ml Documented by: [id number] Discharge Plan Visit Data Chief Complaint: Fall Stated Complaint: fell out of bed, weakness ED Provider: Peyton Dickerson Discharge Problem: Acute alteration in mental status, Fall Patient Disposition: Admitted As Inpatient Discharge Instructions Interventions: ED Discharge Assessment Last Done: 07/10/21 05:26 Discharge Problem: Fall Qualifiers: Encounter type: initial encounter Qualified Code(s): W19.XXXA - Unspecified fall, initial encounter
[2021-07-10 00:27] LABS: INR 1.4 (0.9-1.1); Partial Thromboplastin Ratio 1.2; Partial Thromboplastin Time 31.6 Seconds (21.0-31.0); Prothrombin Time 13.6 Seconds (9.0-12.0)
[2021-07-10 00:34] LABS: Alanine Aminotransferase 21 U/L (12-78); Albumin Level 2.2 gm/dl (3.4-5.0); Aspartate Aminotransferase 27 U/L (15-37); BUN Creatinine Ratio 7.9 (10-20); Blood Urea Nitrogen 8 mg/dl (7-18); Calcium 9.1 mg/dl (8.5-10.1); Carbon Dioxide 29 mmol/L (21-32); Chloride 109 mmol/L (98-107); Est GFR (African American) 62.1 ml/min; Est GFR (Non-African American) 53.5 ml/min; Glucose 89 mg/dl (70-99); Magnesium 2.1 mg/dl (1.8-2.4); Sodium 146 mmol/L (136-145)
[2021-07-10] MEDS ORDERED: OPTIRAY 320 125ml IV ONE (00:36)
[2021-07-10 00:39] LABS: Albumin Globulin Ratio 0.6 (0.9-2); Alkaline Phosphatase 71 U/L (45-117); Bilirubin,Total 0.6 mg/dl (0.2-1); Globulin 3.4 gm/dl (2.5-4.0); Total Protein 5.6 gm/dl (6.4-8.2); Troponin I < 0.015 ng/ml (0-0.045)
[2021-07-10 02:54] LABS: Appearance Urine Clear (Clear); Bilirubin Urine Negative (Negative); Blood Urine Negative (Negative); Color Urine Dark Yellow; Glucose Urine UA Negative (Negative); Ketones Urine Negative (Negative); Leukocyte Esterase Urine Trace (Negative); Nitrite Urine Negative (Negative); Protein Urine Negative (Negative); Specific Gravity Urine 1.017 (1.000-1.030); Urobilinogen Urine Negative (Negative)
[2021-07-10 03:12] LABS: Bacteria Urine Automated 1+ (Negative); RBC Urine Automated 0-4 /hpf (0-4)
--- NOTE | 2021-07-10 03:18 | History & Physical Report ---
Date of Service July 10, 2021 Assessment & Plan (1) Confusion: Plan: Confusion- Unclear etiology Was initially seen as a stroke alert in the ED. Admit with stroke that TPA protocol order set Consult PT/OT/speech/neurology N.p.o. until assessed by speech History of myasthenia gravis and progressive generalized weakness. Daughter notes that her mother has not been the same since she broke her hip in February CT head, CTA head and neck all negative for acute event MRI brain without contrast ordered for a.m. (2) COVID-19: Plan: The patient has had a number of positive and negative test, and continues to be asymptomatic. She will be placed in with Covid restrictions, but will not be treated (3) CAD (coronary artery disease): Plan: CAD/hypertension/atrial fibrillation- Medications will be on hold until patient is more alert less confused She is presently rate controlled and with good blood pressure (4) A-fib: Plan: See above Hold Eliquis overnight, if not able to take Eliquis in the morning, will need to start heparin infusion (5) Generalized weakness: Plan: Will need a PT/OT consult (6) GERD (gastroesophageal reflux disease): Plan: Holding oral pantoprazole Placed on IV famotidine (7) Myasthenia gravis: (8) Depression: Plan: Meds on hold until less confused (9) Hypertension: Plan: See above (10) Bipolar 1 disorder: Plan: Meds on hold until less confused (11) Sleep apnea: Plan: CPAP at bedtime as needed (12) Hyperlipidemia: Plan: Holding rosuvastatin for now History of Present Illness Chief Complaint: The patient is brought to the emergency department from her residence after nursing noted she was on the floor next to her bed, presumably fell out of bed, and had altered mental status Primary Care Provider: [facility] The patient is a 81-year-old female with a past medical history including COVID- 19, atrial fibrillation, anemia, CAD, generalized weakness, GERD, B12 deficiency, iron deficiency, hypothyroidism, myasthenia gravis,, COPD, hypertension, depression, bipolar 1 disorder and hyperlipidemia. Family reports they were called by the nursing facility when nursing there noted patient was on the floor next to her bed, and confused. Work-up in the emergency department: CT scan of head showed chronic lacunar answer Ed infarcts. CTA head and neck were both negative for acute events. Pertinent laboratories: Hemoglobin 10.6, hematocrit 30.9 and albumin 2.2. Patient was given COVID-19 positive, but has variable negative and positive dates, and has not been symptomatic. Patient was noted to be COVID-19 positive on the following dates: 04/10, 05/08, 06/17 and today. She was negative on 05/31. Patient did receive full COVID-19 vaccine series. Allergies Allergy/AdvReac Type Severity Reaction Status Date / Time metoclopramide Allergy Intermediate ESSENTIAL Verified 07/10/21 00:25 TREMORS clopidogrel Allergy Mild HIVES Verified 07/10/21 00:25 diazepam Allergy Mild DEPRESSION Verified 07/10/21 00:25 diltiazem Allergy Mild Light Verified 07/10/21 00:25 headed erythromycin base Allergy Mild EES, TAKES Verified 07/10/21 00:25 Z-PACKS W/O RXN gabapentin Allergy Mild States Verified 07/10/21 00:25 hands catch fire latex Allergy Mild rips skin Verified 07/10/21 00:25 off lisinopril Allergy Mild COUGH Verified 07/10/21 00:25 losartan Allergy Mild HIVES Verified 07/10/21 00:25 micafungin Allergy Mild rash Verified 07/10/21 00:25 oxycodone Allergy Mild INC. Verified 07/10/21 00:25 DEPRESSION Penicillins Allergy Mild Diarrhea Verified 07/10/21 00:25 promethazine Allergy Mild TROUBLE Verified 07/10/21 00:25 FOCUSING SPEAKING AT HIGHER DOSES Sulfa (Sulfonamide Allergy Mild SKIN Verified 07/10/21 00:25 Antibiotics) BECOMES PHOTOSENSITIVE AND BECOMES RED bupropion Allergy Unknown unknown Verified 07/10/21 00:25 dicyclomine Allergy Unknown Unknown Verified 07/10/21 00:25 potassium chloride Allergy Unknown Unknown Verified 07/10/21 00:25 sucralfate Allergy Unknown Unknown Verified 07/10/21 00:25 Estschq-Xqp-Uuo Reductase AdvReac Intermediate Diarrhea Verified 07/10/21 00:25 Inhibitor amoxicillin AdvReac Mild DIARRHEA Verified 07/10/21 00:25 clavulanic acid AdvReac Mild DIARRHEA Verified 07/10/21 00:25 hydrocodone AdvReac Mild "dont like Verified 07/10/21 00:25 how it makes me feel" Home Medications Medication Instructions Recorded Confirmed Type nitroglycerin 0.4 mg sublingual 0.4 mg SUBLINGUAL UD PRN 01/01/19 07/10/21 History tablet (Nitrostat) roflumilast 500 mcg tablet 500 mcg PO QAM 01/01/19 07/10/21 History Oxygen Home #1 ea 07/21/20 07/10/21 History cholecalciferol (vitamin D3) 25 25 mcg PO DAILY 01/11/21 07/10/21 History mcg (1,000 unit) capsule cyanocobalamin (vitamin B-12) 5,000 mcg PO DAILY 01/11/21 07/10/21 History 5,000 mcg capsule rosuvastatin 10 mg tablet 10 mg PO HS 01/11/21 07/10/21 History ferrous gluconate 324 mg (38 mg 324 mg PO BIDM #60 tab 03/11/21 07/10/21 Rx iron) tablet ondansetron HCl 4 mg tablet 4 mg PO Q8H PRN #6 tab 03/11/21 07/10/21 Rx (Zofran) pregabalin 75 mg capsule 75 mg PO HS #30 cap 03/11/21 07/10/21 Rx apixaban 5 mg tablet (Eliquis) 5 mg PO BID #30 tab 04/04/21 07/10/21 Rx folic acid 1 mg tablet 1 mg PO QAM #30 tab 05/31/21 07/10/21 Rx mirtazapine 15 mg tablet 15 mg PO HS #30 tab 05/31/21 07/10/21 Rx multivitamin-ferrous 1 tab PO QAM #30 tab 05/31/21 07/10/21 Rx fumarate-folic acid 18 mg-400 mcg tablet (Certavite-Antioxidant) pantoprazole 40 mg tablet,delayed 40 mg PO QAM #30 tab 05/31/21 07/10/21 Rx release potassium chloride 10 mEq 10 meq PO QAM #30 tab 05/31/21 07/10/21 Rx tablet,extended release(part/cryst) (Klor-Con M) quetiapine 100 mg tablet 100 mg PO HS #30 tab 05/31/21 07/10/21 Rx thiamine HCl (vitamin B1) 100 mg 100 mg PO QAM #30 tab 05/31/21 07/10/21 Rx tablet (Vitamin B-1) aspirin 81 mg chewable tablet 81 mg PO DAILY 06/17/21 07/10/21 History famotidine 20 mg tablet 20 mg PO BIDM 06/17/21 07/10/21 History loperamide 2 mg tablet 4 mg PO Q12 PRN 06/17/21 07/10/21 History digoxin 125 mcg (0.125 mg) tablet 125 mcg PO DAILY@1600 30 Days #30 06/23/21 07/10/21 Rx (Digitek) tab metoprolol tartrate 50 mg tablet 50 mg PO TID 30 Days #90 tab 06/23/21 07/10/21 Rx acetaminophen 325 mg tablet 325 mg PO Q6 PRN MDD 3g 07/10/21 07/10/21 History (Tylenol) colestipol 1 gram tablet (Colestid) 2 g PO BID 07/10/21 07/10/21 History lamotrigine 150 mg tablet 150 mg PO HS 07/10/21 07/10/21 History quetiapine 50 mg tablet 50 mg PO Q12 PRN 07/10/21 07/10/21 History Past Med/Surg History Medical History Anemia REASON FOR COLONOSCOPY 07/2019 Atrial fibrillation Atrial fibrillation with rapid ventricular response Bipolar 1 disorder Breast cancer (08/23/14) "Abnormal bilateral mammogram Status post core needle biopsy 08/23/2014 revealing intraductal papilloma on the left Right breast showed invasive ductal carcinoma Status post right lumpectomy and sentinel lymph node biopsy 10/08/2014 Stage [id number] Status post completion of radiation therapy 12/24/2014 utilizing hypo-fractionation received 5000 cGy" Breast cancer, right 2013--stage 1--lumpectomy and radiation Change in vision Chronic obstructive pulmonary disease inhaler daily Closed fracture of left hip Degenerative joint disease Depression Elevated troponin I level Fall Folate deficiency anemia GERD (gastroesophageal reflux disease) Heme + stool History of colon polyps Hyperlipidemia Hypertension Hypokalemia Hypothyroidism Medical marijuana use Myocardial Infarction "silent" in --follows with Dr. Gibbs On home oxygen therapy 2L N/C at hs Pancreatitis hx of Papilloma of breast left Sleep apnea Temporal arteritis Unstable angina Unstable angina Surgical History History of bilateral cataract extraction History of bilateral tubal ligation History of breast surgery removal of papilloma of left breast History of cardiac cath x3--last ---no stents History of cholecystectomy History of colonoscopy History of esophagogastroduodenoscopy (EGD) History of lumpectomy of right breast History of right breast biopsy malignant History of tooth extraction all teeth removed History of total hysterectomy with bilateral salpingo-oophorectomy (BSO) Family History Grandfather (Paternal) Family history of diabetes mellitus Other No family history of adverse response to anesthesia Social History Smoking Status: Unknown if ever smoked Cigarettes Per Day: 20 a day; Second Hand Exposure: No; Hx Alcohol Use: No Hx Substance Use: No Preferred Language: Greek Communication Ability: Effective Machine Loader Required: No Beliefs That Will Affect Care: None marital status: Current Living Situation: Family Feels Safe at Home: Yes Assistive Devices: Walker Review of Systems Review of Systems: Most of the HPI and review of systems is obtained from her daughter and in attendance in the ED. Patient is still somewhat confused, and does not give completely intelligible answers Physical Exam Physical Exam: The patient is awake, but keeps her eyes closed, mild bruise on forehead, lying in bed and in no acute distress. HEENT--PERRL, EOMI, mucous membranes and oropharynx dry. Neck--supple. No JVD. No bruits. Thyroid normal, trachea midline, no adenopathy. Heart--normal S1 and S2. No murmurs, rubs or gallops. Lungs--clear bilaterally, no respiratory distress, no accessory muscle use. Abdomen--normal bowel sounds and soft. Nontender. Nondistended. Extremities--no cyanosis or clubbing. No edema. Dermatologic--skin is mildly dry Neurologic--cranial nerves II through XII grossly intact. Rheumatologic--normal range of motion. Psychiatric--mildly confused Results & Data Results & Data ([facility]) Vital Signs (Past 12 Hours) Vital Signs Temp Pulse Resp BP Pulse Ox 07/10/21 02:31 69 18 149/72 H 96 07/10/21 02:00 61 16 121/45 L 94 07/10/21 01:30 53 L 20 78/38 L 93 07/10/21 01:00 61 21 98/42 L 95 07/10/21 00:30 68 18 135/69 97 07/10/21 00:05 71 19 120/67 95 07/10/21 00:02 98.1 F 69 18 120/67 97 Laboratory Results Laboratory Results WBC 6.85 K/uL (4.8-10.8) 07/10/21 00:03 RBC 3.29 M/uL (4.2-5.4) L 07/10/21 00:03 Hgb 10.0 g/dL (12.0-16.0) L 07/10/21 00:03 Hct 30.9 % (37-47) L 07/10/21 00:03 MCV 93.9 fL (80-100) 07/10/21 00:03 MCH 30.4 pg (25-34) 07/10/21 00:03 MCHC 32.4 g/dL (32-36) 07/10/21 00:03 RDW Std Deviation 55.5 fL (36.4-46.3) H 07/10/21 00:03 RDW Coeff of Gino 16.1 % (11.5-14.5) H 07/10/21 00:03 Plt Count 198 K/uL (130-400) 07/10/21 00:03 MPV 9.5 fL (7.4-10.4) 07/10/21 00:03 Immature Gran % (Auto) 0.1 % 07/10/21 00:03 Neut % (Auto) 52.7 % 07/10/21 00:03 Lymph % (Auto) 32.7 % 07/10/21 00:03 [place] % (Auto) 12.4 % 07/10/21 00:03 Eos % (Auto) 1.5 % 07/10/21 00:03 Baso % (Auto) 0.6 % 07/10/21 00:03 Neut # (Auto) 3.61 K/uL (1.4-6.5) 07/10/21 00:03 Lymph # (Auto) 2.24 K/uL (1.2-3.4) 07/10/21 00:03 [place] # (Auto) 0.85 K/uL (0.11-0.59) H 07/10/21 00:03 Eos # (Auto) 0.10 K/uL (0-0.5) 07/10/21 00:03 Baso # (Auto) 0.04 K/uL (0-0.2) 07/10/21 00:03 Immature Gran # (Auto) 0.01 K/uL (0.00-0.02) 07/10/21 00:03 PT 13.6 Seconds (9.0-12.0) H 07/10/21 00:03 INR 1.4 (0.9-1.1) H 07/10/21 00:03 APTT 31.6 Seconds (21.0-31.0) H 07/10/21 00:03 PTT Ratio 1.2 07/10/21 00:03 Sodium 146 mmol/L (136-145) H 07/10/21 00:03 Potassium 4.0 mmol/L (3.5-5.1) 07/10/21 00:03 Chloride 109 mmol/L (98-107) H 07/10/21 00:03 Carbon Dioxide 29 mmol/L (21-32) 07/10/21 00:03 Anion Gap 8.0 (3-11) 07/10/21 00:03 BUN 8 mg/dl (7-18) 07/10/21 00:03 Creatinine 1.00 mg/dl (0.6-1.2) 07/10/21 00:03 Est Cr Clr Drug Dosing Not Reportable 07/10/21 00:03 Est GFR ( Amer) 62.1 ml/min 07/10/21 00:03 Est GFR (Non-Af Amer) 53.5 ml/min 07/10/21 00:03 BUN/Creatinine Ratio 7.9 (10-20) L 07/10/21 00:03 Glucose 89 mg/dl (70-99) 07/10/21 00:03 Calcium 9.1 mg/dl (8.5-10.1) 07/10/21 00:03 Magnesium 2.1 mg/dl (1.8-2.4) 07/10/21 00:03 Total Bilirubin 0.6 mg/dl (0.2-1) 07/10/21 00:03 AST 27 U/L (15-37) 07/10/21 00:03 ALT 21 U/L (12-78) 07/10/21 00:03 Alkaline Phosphatase 71 U/L (45-117) 07/10/21 00:03 Troponin I < 0.015 ng/ml (0-0.045) 07/10/21 00:03 Total Protein 5.6 gm/dl (6.4-8.2) L 07/10/21 00:03 Albumin 2.2 gm/dl (3.4-5.0) L 07/10/21 00:03 Globulin 3.4 gm/dl (2.5-4.0) 07/10/21 00:03 Albumin/Globulin Ratio 0.6 (0.9-2) L 07/10/21 00:03 Urine Color Dark Yellow 07/10/21 02:35 Urine Appearance Clear (Clear) 07/10/21 02:35 Urine pH 5.0 (4.5-7.5) 07/10/21 02:35 Ur Specific Donaldson 1.017 (1.000-1.030) 07/10/21 02:35 Urine Protein Negative (Negative) 07/10/21 02:35 Urine Glucose (UA) Negative (Negative) 07/10/21 02:35 Urine Ketones Negative (Negative) 07/10/21 02:35 Urine Blood Negative (Negative) 07/10/21 02:35 Urine Nitrite Negative (Negative) 07/10/21 02:35 Urine Bilirubin Negative (Negative) 07/10/21 02:35 Urine Urobilinogen Negative (Negative) 07/10/21 02:35 Ur Leukocyte Esterase Trace (Negative) H 07/10/21 02:35 Urine WBC (Auto) 1-5 /hpf (0-5) 07/10/21 02:35 Urine RBC (Auto) 0-4 /hpf (0-4) 07/10/21 02:35 U Hyaline Cast (Auto) 1-5 /lpf (0-5) 07/10/21 02:35 U Epithel Cells (Auto) 10-20 /lpf (0-5) H 07/10/21 02:35 Urine Bacteria (Auto) 1+ (Negative) H 07/10/21 02:35 COVID-19 Eval Order Covid19 at [facility] 07/10/21 00:40 SARS-CoV-2 (PCR) POSITIVE (Negative) A* 07/10/21 00:40 Blood Type B Positive 07/10/21 00:11 Antibody Screen NEGATIVE 07/10/21 00:11 Diagnostic Findings [facility] Patient: NELLIE ANDERSON (Female) : 44 Status: ER Date: 07/10/21 00:38 Room #: History: FELL OUT OF BED FOUND ON FLOOR, STROKE SYMPTOMS Slices: 67 Priors: Tech: Jason Brown @ [phone] Exams: CT HEAD Contrast: Accession Numbers: [id number] Referring Physician: [facility] Preliminary Findings Only See Final Report For Complete Findings CT HEAD: No intracranial hemorrhage, mass-effect, or edema. Atrophy with chronic white matter changes and scattered chronic lacunar infarcts. Chronic cerebellar infarcts. Paranasal sinuses and mastoid air cells are clear. No fracture. Radiologist: Norman Cao MD Study ready at 00:41 and initial results transmitted at 01:42 *This report constitutes a preliminary interpretation only. Non-acute findings felt to be unrelated to the clinical presentation may not be discussed in this report. The study will be interpreted and a final report will be generated by the local Radiologist the following shift. To reach the hospital radiology department call [phone]. If a discrepancy is found between the preliminary and final interpretations of this study, please notify us via our Client Portal at [email or web address].You can also fax this report with a description of the discrepancy, or include the final report, to our daytime fax number [phone].If faxing, please indicate the severity of discrepancy using one of the following categories: [ ] 1 - Agree/Informational [ ] 2 - Unlikely to Affect Management [ ] 3 - Possible Eventual Change of Management [ ] 4 - Probable Immediate Change of Management For all other patient related information, please fax us at [phone]. [id number] [facility] Patient: NELLIE ANDERSON (Female) : 44 Status: ER Date: 07/10/21 00:39 Room #: History: FELL OUT OF BED FOUND ON FLOOR, STROKE SYMPTOMS Slices: 489 Priors: Tech: Kevin Jason @ [phone] Exams: CTA HEAD Contrast: IV Amt: 119 ML OPTIRAY 320 Accession Numbers: [id number] Referring Physician: [facility] Preliminary Findings Only See Final Report For Complete Findings CTA HEAD: No arterial occlusion, high-grade stenosis, aneurysm, or dissection. Diminutive right vertebral artery. Radiologist: Norman Cao MD Study ready at 00:41 and initial results transmitted at 01:44 *This report constitutes a preliminary interpretation only. Non-acute findings felt to be unrelated to the clinical presentation may not be discussed in this report. The study will be interpreted and a final report will be generated by the local Radiologist the following shift. To reach the hospital radiology department call [phone]. If a discrepancy is found between the preliminary and final interpretations of this study, please notify us via our Client Portal at [email or web address].You can also fax this report with a description of the discrepancy, or include the final report, to our daytime fax number [phone].If faxing, please indicate the severity of discrepancy using one of the following categories: [ ] 1 - Agree/Informational [ ] 2 - Unlikely to Affect Management [ ] 3 - Possible Eventual Change of Management [ ] 4 - Probable Immediate Change of Management For all other patient related information, please fax us at [phone]. [id number] [facility] Patient: NELLIE ANDERSON (Female) : 44 Status: ER Date: 07/10/21 00:40 Room #: History: FELL OUT OF BED FOUND ON FLOOR, STROKE LIKE SYMPTOMS Slices: [phone] Priors: Tech: Jason Brown @ [phone] Exams: CTA NECK Contrast: IV Amt: 119 ML OPTIRAY 320 Accession Numbers: [id number] Referring Physician: [facility] Preliminary Findings Only See Final Report For Complete Findings CTA NECK: No traumatic vascular injury. Mild scattered atheromatous disease. Diminutive right vertebral artery. No visualized fracture. Radiologist: Norman Cao MD Study ready at 00:45 and initial results transmitted at 01:49 *This report constitutes a preliminary interpretation only. Non-acute findings felt to be unrelated to the clinical presentation may not be discussed in this report. The study will be interpreted and a final report will be generated by the local Radiologist the following shift. To reach the hospital radiology department call [phone]. If a discrepancy is found between the preliminary and final interpretations of this study, please notify us via our Client Portal at [email or web address].You can also fax this report with a description of the discrepancy, or include the final report, to our daytime fax number [phone].If faxing, please indicate the severity of discrepancy using one of the following categories: [ ] 1 - Agree/Informational [ ] 2 - Unlikely to Affect Management [ ] 3 - Possible Eventual Change of Management [ ] 4 - Probable Immediate Change of Management For all other patient related information, please fax us at [phone]. [id number] Code Status & VTE Plan Code Status Full code VTE Prophylaxis Plan VTE Prophylaxis will be ordered: Yes PG Care Time/CCT Total # of Minutes Spent Total Time Spent with Patient: Total time spent is greater than 50% in coordination of care (as documented) at patient's floor/unit and/or counseling patient: Coding Level of Care Code 05143 Initial Inpt Care Lvl 3 Diagnoses COVID-19 U07.1 A-fib I48.91 Atrial fibrillation type: unspecified CAD (coronary artery disease) I25.10 Generalized weakness R53.1 GERD (gastroesophageal reflux disease) K21.9 Myasthenia gravis G70.00 Depression F32.9 Hypertension I10 Hypertension type: essential hypertension Bipolar 1 disorder F31.9 Sleep apnea G47.30 Hyperlipidemia E78.5 Hyperlipidemia type: unspecified Confusion R41.0 (1) A-fib Atrial fibrillation type: unspecified Qualified Code(s): I48.91 - Unspecified atrial fibrillation (2) Hypertension Hypertension type: essential hypertension Qualified Code(s): I10 - Essential (primary) hypertension (3) Hyperlipidemia Hyperlipidemia type: unspecified Qualified Code(s): E78.5 - Hyperlipidemia, unspecified
[2021-07-10] MEDS ORDERED: SODIUM CHLORIDE 0.9% 500 ML IV ONE (03:38)
[2021-07-10] MEDS ORDERED: ACETAMINOPHEN 1000 MG/100 ML IV IV PRN (05:45)
[2021-07-10] MEDS ORDERED: PHARMACIST DISCHARGE MED REC CONSULT PRN (05:45)
[2021-07-10] MEDS ORDERED: ACETAMINOPHEN 1,000 MG/100 ML VIAL IV PRN (06:00)
[2021-07-10] MEDS ORDERED: PNEUMOCOCCAL POLYSACCHARIDES 25 MCG/0.5 ML VIAL/SYR IM ONE (07:00)
--- NOTE | 2021-07-10 07:07 | CT Scan Report ---
CT head/brain wo con CLINICAL HISTORY: 81 years-old Female with Stroke Like Symptoms. Acute strokelike symptoms TECHNIQUE: Multiple axial CT images of the head were obtained without contrast. A dose lowering tech nique was utilized adhering to the principles of ALARA. COMPARISON: CTA head and neck of same day, head CT 05/08/2021 FINDINGS: No acute intracranial hemorrhage, midline shift, intracranial mass, hydrocephalus, territorial ischem ia or abnormal extra-axial collection. Age-related involutional changes. White matter hypodensities s uggestive of chronic microvascular ischemic disease. Chronic lacunar infarcts of the right thalamus a nd bilateral cerebellar hemispheres. The calvarium is intact. Developmental incomplete bony fusion involves the posterior arch of C1. Prio r bilateral lens repair. The paranasal sinuses, mastoid air cells, and middle ear cavities are clear. IMPRESSION: No acute intracranial abnormality. ACT 112: Negative or not required by law. The above report was generated using voice recognition software. It may contain grammatical, syntax o r spelling errors. Electronically signed by: Glynn Ruvalcaba M.D. 07/10/2021 7:06 AM
--- NOTE | 2021-07-10 08:03 | CT Scan Report ---
CT angio neck with con CLINICAL HISTORY: 81 years-old Female with Stroke Like Symptoms. Acute strokelike symptoms COMPARISON STUDY: CTA head of same day, head CT 05/08/2021 TECHNIQUE: Following the IV administration of 119 mL of Optiray, CT angiogram of the neck was perform ed from the aortic arch to the skull base. Images are reviewed in the axial, sagittal, and coronal pl anes. 3-D MIPS images are created and assessed. IV contrast was administered without complication. Al l measurements were calculated based on NASCET criteria. A dose lowering technique was utilized adhe ring to the principles of ALARA. CT DOSE: 1133.88 mGy.cm FINDINGS: The imaged opacified pulmonary artery is unremarkable. Moderate atherosclerosis of the thoracic aorti c arch. There is patency of the innominate and imaged subclavian arteries. Patent common carotid virgil joao. There is moderate atherosclerotic plaque of the carotid bulbs and proximal cervical segments of the internal carotid arteries without and less than 50% stenosis bilaterally. Atherosclerotic plaque of the cavernous, clinoid and supraclinoid segments without high-grade stenosis. Atherosclerotic ron que at the origin of the dominant left vertebral artery results in 50% luminal narrowing. Diminutive right vertebral artery, presumably developmental. Diminutive basilar artery with origin of the posterior cerebral arteries. No aneurysm, dissection, high-grade stenosis or arterial occlusion ident ified. Emphysema. No pneumothorax. Unremarkable soft tissues. 1.7 cm nodule of peripheral calcification invo lves the right thyroid lobe. Prior bilateral lens repair. Degenerative changes of the cervical spine. IMPRESSION: 1. Moderate atherosclerotic plaque of the carotid bulbs and proximal cervical segments of the interna l carotid arteries. No significant stenosis. 2. Calcified plaque at the origin of the left vertebral artery results in approximately 50% luminal n arrowing. ACT 112: Negative or not required by law. The above report was generated using voice recognition software. It may contain grammatical, syntax o r spelling errors. Electronically signed by: Glynn Ruvalcaba M.D. 07/10/2021 8:02 AM
--- NOTE | 2021-07-10 08:52 | CT Scan Report ---
CTA ANGIOGRAPHY OF THE HEAD CLINICAL HISTORY: Stroke Like Symptoms COMPARISON STUDY: CT of the head May 08, 2021. MRI of the brain February 06, 2018. TECHNIQUE: Helical axial images of the head were obtained following uneventful intravenous administr ation of 119 cc of Optiray. Sagittal and coronal reconstructions were viewed as well as maximal inten sity projections on an independent 3-D workstation. Automated exposure control was utilized for the study. A dose lowering technique was utilized adhering to the principles of ALARA. FINDINGS: No acute intracranial hemorrhage, midline shift or mass effect is present. Ventricular syst em is stable. White matter hypodensity suggests small vessel disease. The bilateral M1, M2, A1 and A2 segments are patent. There is no intracranial aneurysm. Right vertebral artery is hypoplastic. Basil ar artery is diminutive. There is persistence of the bilateral posterior cerebral arteries. No central vessel occlusion is noted. There is mild plaque within bilateral cavernous carotids. IMPRESSION: No central vessel occlusion. No intracranial aneurysm. ACT 112: Negative or not required by law. Electronically signed by: Wes Lui M.D. 07/10/2021 8:50 AM
[2021-07-10] MEDS: FAMOTIDINE 20 MG in SYRINGE 3 ML IV SCH ×2 (09:00→20:48)
--- NOTE | 2021-07-10 10:23 | Neurology Consultation ---
Date of Consultation July 10, 2021 Assessment & Plan (1) Generalized weakness: (2) Tremor: (3) Confusion: This patient has a history of somewhat undifferentiated chronic neuromuscular condition characterized by bouts of weakness, tremor, ambulatory dysfunction, and possible bulbar symptoms including ptosis but without gross ophthalmoplegia. She had a decremental response on an EMG completed 8 years ago although subsequent extensive evaluation for myasthenia gravis has been generally unrevealing. She may have seronegative myasthenia gravis and had reportedly not responded very much to a previous trial of Mestinon. A chronic myopathy or myositis is not completely excluded although previous lab evaluation electrodiagnostic testing for these issues has been unrevealing. She is mildly confused and lethargic this morning but does not otherwise exhibit focal or lateralizing neurologic signs on her examination. Nonetheless, an acute stroke may not be completely excluded and a noncontrast brain MRI has been ordered to evaluate for this possibility. She does have a history of atrial fibrillation and is prescribed Eliquis. There is no indication that she has been having seizures and I do not think an EEG is necessary. Follow-up with results of brain MRI as above. Patient's head CT did not reveal any evidence of hemorrhage and she should be able to restart Eliquis. I have ordered some up-to-date lab evaluation including acetylcholine receptor antibodies, aldolase, creatine kinase, C-reactive protein, ESR, TFTs, and vitamin D level. Would recommend an up-to-date outpatient EMG with repetitive stimulation. May consider another trial of Mestinon depending on her status going forward. Continue medical evaluation for other potential causes of altered mental status. History of Present Illness Reason for Consultation: altered mental status, fell out of bed Requesting Physician: Jon Hennessy MD Attending Physician: Aly Rodrigues History of Present Illness The patient is a 81-year-old female with a history of a somewhat nonspecific neuromuscular disorder characterized by episodes of weakness, tremor, and perhaps some associated muscular pain. She has been evaluated by several different neurologists for this issue including myself in 2011 and , a specialist at [facility] in 2012 and more recently at [facility] last May as well as Dr. Karyn feldman. An EMG completed in 2012 reportedly revealed a decremental response potentially suggestive of a myasthenic type syndrome. However extensive follow-up lab evaluation for myasthenia including acetylcholine receptor antibodies, MuSK antibodies, and others have been negative. Her weakness has reportedly not responded to a previous trial of Mestinon. She had presented to the emergency department overnight after reportedly being found on the floor, next to her bed. She was confused. She has tested positive for COVID-19 several times recently but appears to be asymptomatic. The patient is a somewhat unreliable historian this morning. She seems to recall going down to the floor while attempting to get out of bed. She does not recall specifics, however, such as dizziness, or an actual fall. She is modestly lethargic this morning as well. She does complain of generalized muscular pain and is modestly tremulous. She denies any double vision recently but does perhaps have moderate bilateral ptosis. A CT of the head and CT angiogram of the head and neck are generally unremarkable. There is moderate atherosclerotic plaque of the carotid bulbs and proximal cervical segments of the internal carotid arteries without significant stenosis. There is a 50% stenosis of the left vertebral artery due to calcified plaque. Allergies Allergy/AdvReac Type Severity Reaction Status Date / Time metoclopramide Allergy Intermediate ESSENTIAL Verified 07/10/21 00:25 TREMORS clopidogrel Allergy Mild HIVES Verified 07/10/21 00:25 diazepam Allergy Mild DEPRESSION Verified 07/10/21 00:25 diltiazem Allergy Mild Light Verified 07/10/21 00:25 headed erythromycin base Allergy Mild EES, TAKES Verified 07/10/21 00:25 Z-PACKS W/O RXN gabapentin Allergy Mild States Verified 07/10/21 00:25 hands catch fire latex Allergy Mild rips skin Verified 07/10/21 00:25 off lisinopril Allergy Mild COUGH Verified 07/10/21 00:25 losartan Allergy Mild HIVES Verified 07/10/21 00:25 micafungin Allergy Mild rash Verified 07/10/21 00:25 oxycodone Allergy Mild INC. Verified 07/10/21 00:25 DEPRESSION Penicillins Allergy Mild Diarrhea Verified 07/10/21 00:25 promethazine Allergy Mild TROUBLE Verified 07/10/21 00:25 FOCUSING SPEAKING AT HIGHER DOSES Sulfa (Sulfonamide Allergy Mild SKIN Verified 07/10/21 00:25 Antibiotics) BECOMES PHOTOSENSITIVE AND BECOMES RED bupropion Allergy Unknown unknown Verified 07/10/21 00:25 dicyclomine Allergy Unknown Unknown Verified 07/10/21 00:25 potassium chloride Allergy Unknown Unknown Verified 07/10/21 00:25 sucralfate Allergy Unknown Unknown Verified 07/10/21 00:25 Csmxgqq-Heg-Viy Reductase AdvReac Intermediate Diarrhea Verified 07/10/21 00:25 Inhibitor amoxicillin AdvReac Mild DIARRHEA Verified 07/10/21 00:25 clavulanic acid AdvReac Mild DIARRHEA Verified 07/10/21 00:25 hydrocodone AdvReac Mild "dont like Verified 07/10/21 00:25 how it makes me feel" Home Medications Medication Instructions Recorded Confirmed Type nitroglycerin 0.4 mg sublingual 0.4 mg SUBLINGUAL UD PRN 01/01/19 07/10/21 History tablet (Nitrostat) roflumilast 500 mcg tablet 500 mcg PO QAM 01/01/19 07/10/21 History Oxygen Home #1 ea 07/21/20 07/10/21 History cholecalciferol (vitamin D3) 25 25 mcg PO DAILY 01/11/21 07/10/21 History mcg (1,000 unit) capsule cyanocobalamin (vitamin B-12) 5,000 mcg PO DAILY 01/11/21 07/10/21 History 5,000 mcg capsule rosuvastatin 10 mg tablet 10 mg PO HS 01/11/21 07/10/21 History ferrous gluconate 324 mg (38 mg 324 mg PO BIDM #60 tab 03/11/21 07/10/21 Rx iron) tablet ondansetron HCl 4 mg tablet 4 mg PO Q8H PRN #6 tab 03/11/21 07/10/21 Rx (Zofran) pregabalin 75 mg capsule 75 mg PO HS #30 cap 03/11/21 07/10/21 Rx apixaban 5 mg tablet (Eliquis) 5 mg PO BID #30 tab 04/04/21 07/10/21 Rx folic acid 1 mg tablet 1 mg PO QAM #30 tab 05/31/21 07/10/21 Rx mirtazapine 15 mg tablet 15 mg PO HS #30 tab 05/31/21 07/10/21 Rx multivitamin-ferrous 1 tab PO QAM #30 tab 05/31/21 07/10/21 Rx fumarate-folic acid 18 mg-400 mcg tablet (Certavite-Antioxidant) pantoprazole 40 mg tablet,delayed 40 mg PO QAM #30 tab 05/31/21 07/10/21 Rx release potassium chloride 10 mEq 10 meq PO QAM #30 tab 05/31/21 07/10/21 Rx tablet,extended release(part/cryst) (Klor-Con M) quetiapine 100 mg tablet 100 mg PO HS #30 tab 05/31/21 07/10/21 Rx thiamine HCl (vitamin B1) 100 mg 100 mg PO QAM #30 tab 05/31/21 07/10/21 Rx tablet (Vitamin B-1) aspirin 81 mg chewable tablet 81 mg PO DAILY 06/17/21 07/10/21 History famotidine 20 mg tablet 20 mg PO BIDM 06/17/21 07/10/21 History loperamide 2 mg tablet 4 mg PO Q12 PRN 06/17/21 07/10/21 History digoxin 125 mcg (0.125 mg) tablet 125 mcg PO DAILY@1600 30 Days #30 06/23/21 07/10/21 Rx (Digitek) tab metoprolol tartrate 50 mg tablet 50 mg PO TID 30 Days #90 tab 06/23/21 07/10/21 Rx acetaminophen 325 mg tablet 325 mg PO Q6 PRN MDD 3g 07/10/21 07/10/21 History (Tylenol) colestipol 1 gram tablet (Colestid) 2 g PO BID 07/10/21 07/10/21 History lamotrigine 150 mg tablet 150 mg PO HS 07/10/21 07/10/21 History quetiapine 50 mg tablet 50 mg PO Q12 PRN 07/10/21 07/10/21 History Patient History Medical History Anemia REASON FOR COLONOSCOPY 07/2019 Atrial fibrillation Atrial fibrillation with rapid ventricular response Bipolar 1 disorder Breast cancer (08/23/14) "Abnormal bilateral mammogram Status post core needle biopsy 08/23/2014 revealing intraductal papilloma on the left Right breast showed invasive ductal carcinoma Status post right lumpectomy and sentinel lymph node biopsy 10/08/2014 Stage [id number] Status post completion of radiation therapy 12/24/2014 utilizing hypo- fractionation received 5000 cGy" Breast cancer, right 2013--stage 1--lumpectomy and radiation Change in vision Chronic obstructive pulmonary disease inhaler daily Closed fracture of left hip Degenerative joint disease Depression Elevated troponin I level Fall Folate deficiency anemia GERD (gastroesophageal reflux disease) Heme + stool History of colon polyps Hyperlipidemia Hypertension Hypokalemia Hypothyroidism Medical marijuana use Myocardial Infarction "silent" in --follows with Dr. Gibbs On home oxygen therapy 2L N/C at hs Pancreatitis hx of Papilloma of breast left Sleep apnea Temporal arteritis Unstable angina Unstable angina Surgical History History of bilateral cataract extraction History of bilateral tubal ligation History of breast surgery removal of papilloma of left breast History of cardiac cath x3--last ---no stents History of cholecystectomy History of colonoscopy History of esophagogastroduodenoscopy (EGD) History of lumpectomy of right breast History of right breast biopsy malignant History of tooth extraction all teeth removed History of total hysterectomy with bilateral salpingo-oophorectomy (BSO) Family History Grandfather (Paternal) Family history of diabetes mellitus Other No family history of adverse response to anesthesia Social History Smoking Status: Former smoker Cigarettes Per Day: 20 a day; Second Hand Exposure: No; Hx Alcohol Use: No Hx Substance Use: No Preferred Language: Portuguese Communication Ability: Impaired Living Coach Required: No Beliefs That Will Affect Care: None marital status: Current Living Situation: Care Home Feels Safe at Home: Yes Assistive Devices: None Review of Systems Constitutional: no fever and no chills Eyes: no blind spots and no diplopia Ear, Nose, Mouth, Throat: no ear pain and no hearing loss Respiratory: no cough and no dyspnea Cardiovascular: no chest pain and no palpitations Gastrointestinal: no constipation and no diarrhea/loose stools Genitourinary: no urinary urgency and no urinary incontinence Musculoskeletal: as per Subjective / HPI, + myalgia and + muscle weakness Integumentary: no rash and no lesions Neurologic: as per Subjective / HPI Psychiatric: no behavioral changes, no depression, no abnormal sleep pattern and no anxiety Hematologic / Lymphatic: no easy bruising and no lymphadenopathy Exam (Neuro) Physical Exam: The patient is a well-developed elderly female. She is lethargic and oriented to person and place only. Attention is modestly reduced. Speech is slightly soft but not overly dysarthric sounding. Fund of knowledge and memory function are difficult to assess in the context of her lethargy. She has normal comprehension of vocabulary and does not grossly aphasic. Visual tapia full to confrontation. Visual acuity normal. Pupils equal round react to light and accommodation. Eye movements intact. No ophthalmoplegia. No nystagmus. Patient does have mild to moderate bilateral ptosis. Facial sensation intact. There is no lateralized facial droop. Patient does have some difficulty pursing her lips and blowing out her cheeks. Hearing intact. Tongue and palate midline. Shoulder shrug intact. Sensation grossly intact in all 4 limbs to all modalities. Deep tendon reflexes are diffusely diminished. Plantar responses downgoing. Patient is unable to perform [id number] and slyq-ur-caub very well due to mild to moderate generalized weakness. Exhibits a prominent bilateral action tremor with [id number]-rodo. Not really able to perform [id number]-ll-ezpn at this time. Normal optic discs and posterior segments with direct ophthalmoscopic examination. Carotid pulses normal bilaterally, no bruits to auscultation. Gait and station cannot be tested in the context of patient's current medical/neurological condition. Patient does exhibit a mild to moderate degree of generalized weakness, legs greater than arms. Muscle tone normal throughout. No atrophy. Patient exhibits a bilateral upper extremity postural/action tremor as above. Results & Data ([facility]) Vital Signs (Past 12 Hours) Vital Signs Temp Pulse Pulse Resp BP BP Pulse Ox 07/10/21 08:03 36.7 C 85 16 128/63 97 07/10/21 05:47 36.6 C 73 16 134/74 07/10/21 05:26 69 20 122/60 100 07/10/21 05:00 66 21 122/60 100 07/10/21 04:30 62 21 89/44 L 93 07/10/21 04:00 69 15 100 07/10/21 03:30 62 23 100 07/10/21 03:01 79 23 100 07/10/21 02:31 69 18 149/72 H 96 07/10/21 02:00 61 16 121/45 L 94 07/10/21 01:30 53 L 20 78/38 L 93 07/10/21 01:00 61 21 98/42 L 95 07/10/21 00:30 68 18 135/69 97 07/10/21 00:05 71 19 120/67 95 07/10/21 00:02 36.7 C 69 18 120/67 97 Laboratory Results WBC 6.85, hemoglobin 10.0, hematocrit 30.9, platelet count 198, sodium 146, potassium 4.0, BUN 8, creatinine 1.00, glucose 89, calcium 9.1, magnesium 2.1, AST 27, ALT 21, troponin less than 0.015, SARS-CoV-2 PCR positive Previous neuromuscular lab from last year evaluation reviewed. Acetylcholine receptor antibodies, binding and modulating were negative. Voltage-gated calcium channel antibodies negative. Musk antibody negative. Striated muscle antibody negative. Recent sedimentation rates have been normal. Diagnostic Findings CT of the head and CT angiography of the head and neck have been completed and are as described in the history of present illness. I reviewed the images as well as the radiologist's interpretation of these tests. Electrocardiogram reveals atrial fibrillation, 69 bpm. Coding Level of Care Code 10652 Initial Inpt Care Lvl 3 Diagnoses Generalized weakness R53.1 Tremor R25.1 Confusion R41.0
[2021-07-10 12:20] LABS: C Reactive Protein 0.56 mg/dl (0-0.29); Thyroid Stimulating Hormone 2.16 uIu/ml (0.300-4.500)
--- NOTE | 2021-07-10 20:56 | Communication Note ---
Date of Service: July 10, 2021 Patient remains confused. Unable to obtain MRI due to confusion and patient being violent to staff. Doubt even if sedated that patient will not move during MRI. will discuss with neuro in AM, may consider CT Head in 48-72 hours in lieu of MRI.
[2021-07-11 07:42] LABS: Basophils # (auto) 0.04 K/uL (0-0.2); Basophils % (auto) 0.6 %; Eosinophils % (auto) 1.6 %; Hematocrit (blood only) 31.1 % (37-47); Hemoglobin 9.9 g/dL (12.0-16.0); Immature Granulocytes # (auto) 0.01 K/uL (0.00-0.02); Immature Granulocytes % (auto) 0.2 %; Lymphocytes # (auto) 1.75 K/uL (1.2-3.4); Lymphocytes % (auto) 27.3 %; Mean Corpuscular Hemoglobin 29.9 pg (25-34); Mean Corpuscular Hgb Conc 31.8 g/dL (32-36); Mean Platelet Volume 9.4 fL (7.4-10.4); Monocytes # (auto) 0.71 K/uL (0.11-0.59); Monocytes % (auto) 11.1 %; Neutrophils # (auto) 3.81 K/uL (1.4-6.5); Neutrophils % (auto) 59.2 %; Platelet Count 200 K/uL (130-400); RDW Coefficient of Variation 16.3 % (11.5-14.5); RDW Standard Deviation 55.9 fL (36.4-46.3); Red Blood Count 3.31 M/uL (4.2-5.4); White Blood Count 6.42 K/uL (4.8-10.8)
[2021-07-11 08:16] LABS: Albumin Level 2.1 gm/dl (3.4-5.0); BUN Creatinine Ratio 9.6 (10-20); Calcium 8.6 mg/dl (8.5-10.1); Creatinine Clr Calc Pharmacy 42.9 ml/min; Est GFR (African American) 74.5 ml/min; Est GFR (Non-African American) 64.3 ml/min; Potassium 3.7 mmol/L (3.5-5.1)
[2021-07-11 08:20] LABS: Albumin Globulin Ratio 0.6 (0.9-2); Bilirubin,Total 0.8 mg/dl (0.2-1); Globulin 3.4 gm/dl (2.5-4.0); Total Protein 5.5 gm/dl (6.4-8.2)
[2021-07-11 08:59] LABS: Estimated Average Glucose 85 mg/dl; Hemoglobin A1C 4.6 % (4.5-5.6)
[2021-07-11] MEDS: FAMOTIDINE 20 MG in SYRINGE 3 ML IV SCH ×2 (09:09→21:26)
--- NOTE | 2021-07-11 12:16 | Neurology Progress Note ---
Date of Service July 11, 2021 Assessment & Plan (1) Acute alteration in mental status: (2) Generalized weakness: (3) Tremor: Plan: Confusion/altered mental status, appears to be improved this morning, patient is alert, oriented, and appropriate. Does have a chronic generalized mixed tremor, resting, postural and action components that has been present for many years. Does not have a pill-rolling resting tremor, rigidity, bradykinesia, or other signs or symptoms suggestive of Parkinson's disease. Possible underlying undifferentiated neuromuscular disorder with an EMG done about 10 years ago suggesting a myasthenic type syndrome although with negative subsequent extensive evaluation. Does not have ophthalmoplegia, dysarthria or obvious generalized neuromuscular weakness on examination this morning. Although may have seronegative myasthenia gravis, does not appear to be having a myasthenic crisis at this point in time. Does not appear to have an underlying myopathy. Normal TSH, CK, ESR and vitamin D noted. Would reattempt brain MRI to exclude acute/subacute infarct as patient does seem to be less agitated and is more appropriate this morning. Additional outpatient assessment including up-to-date EMG with repetitive stimulation would probably be worthwhile versus having this patient go back to [facility] for single-fiber EMG as suggested by Dr. Boss last July. Admission and Anticipated Discharge Date Admission Date: July 10, 2021 Subjective Follow-up for confusion, weakness The patient continues to exhibit a generalized mixed tremor, resting, postural and action component, perioral tremor as well, this issue has been chronic, present for many years, worse with situational stress and anxiety. Her strength seems improved today, able to readily lift her arms and legs up out of the bed, good antigravity power, fairly good strength with manual testing at bedside. No ophthalmoplegia, mild bilateral ptosis noted. Speech is not overly soft, dysarthria, or nasal sounding. Patient did not tolerate attempted MRI due to agitation although seems to be appropriate this morning. Review of Systems Constitutional: + fatigue; no fever Eyes: no blind spots and no diplopia Musculoskeletal: no myalgia Neurologic: as per Subjective / HPI and + tremor(s) Results & Data ([facility]) Vital Signs (Past 12 Hours) Vital Signs Temp Pulse Pulse Resp BP Pulse Ox Pulse Ox 07/11/21 11:24 36.8 C 100 H 18 161/75 H 94 07/11/21 08:00 82 07/11/21 07:42 37.0 C 112 H 19 141/76 H 96 07/11/21 05:18 96 07/11/21 02:49 36.9 C 108 H 21 146/76 H 97 Laboratory Results WBC 6.42, hemoglobin 9.9, hematocrit 31.1, platelet count 200, sodium 145, potassium 3.7, BUN 8, creatinine 0.86, glucose 71, hemoglobin A1c 4.6, calcium 8.6, magnesium 2.1, AST 24, ALT 20, total CK 44, CRP 0.56, ESR 11, vitamin D 44.1, TSH 2.160 Exam (Neuro) Neurologic: Oriented to:: Person and Place Attention: Span Intact and Concentration Intact Language: Naming Objects and Repeating Phrases Speech Fluency: negative Dysarthria or Dysfluency Fund of Knowledge: Vocabulary Cranial Nerves: Normal II, III, IV, and VII Motor Strength: Normal Lower Extremities and Normal Upper Extremities Muscle Bulk/Involuntary Movements: Rest Tremor (Arm) and Action Tremor; negative Pill Rolling Tremor Coding Level of Care Code 71463 Subseq Hosp Care Lvl 2 Diagnoses Acute alteration in mental status R41.82 Generalized weakness R53.1 Tremor R25.1
--- NOTE | 2021-07-11 21:05 | Hospitalist Progress Note ---
Date of Service July 11, 2021 Assessment & Plan (1) Confusion: Plan: Confusion- Unclear etiology This appears to be ongoing since February of this past year. She also has not been improving in regards to her anorexia. Her confusion is likely a combination of her lack of nutrition, possibly infection with covid, and poorly controlled depression. Spoke with daughter who is open to have another palliative care consult given her poor resonse to her previous hospital stays and decreased quality of life. Was initially seen as a stroke alert in the ED. Admit with stroke that TPA protocol order set Consult PT/OT/speech/neurology History of myasthenia gravis and progressive generalized weakness. Daughter notes that her mother has not been the same since she broke her hip in February CT head, CTA head and neck all negative for acute event MRI brain without contrast ordered for a.m. will need ativan. (2) COVID-19: Plan: The patient has had a number of positive and negative test, and continues to be asymptomatic. She will be placed in with Covid restrictions, but will not be treated (3) CAD (coronary artery disease): Plan: CAD/hypertension/atrial fibrillation- Medications will be on hold until patient is more alert less confused She is presently rate controlled and with good blood pressure (4) A-fib: Plan: See above Hold Eliquis overnight, if not able to take Eliquis in the morning, will need to start heparin infusion (5) Generalized weakness: Plan: Will need a PT/OT consult (6) GERD (gastroesophageal reflux disease): Plan: Holding oral pantoprazole Placed on IV famotidine (7) Myasthenia gravis: (8) Depression: Plan: Meds on hold until less confused (9) Hypertension: Plan: See above (10) Bipolar 1 disorder: Plan: Meds on hold until less confused (11) Sleep apnea: Plan: CPAP at bedtime as needed (12) Hyperlipidemia: Plan: Holding rosuvastatin for now Admission and Anticipated Discharge Date Admission Date: July 10, 2021 Subjective Patient is confused. Review of Systems Review of Systems: Unobtainable due to cognitive status Physical Exam Physical Exam: The patient is awake, olman in bed and in no acute distress. HEENT--PERRL, EOMI, mucous membranes and oropharynx dry. Neck--supple. No JVD. No bruits. Thyroid normal, trachea midline, no adenopathy. Heart--normal S1 and S2. No murmurs, rubs or gallops. Lungs--clear bilaterally, no respiratory distress, no accessory muscle use. Abdomen--normal bowel sounds and soft. Nontender. Nondistended. Extremities--no cyanosis or clubbing. No edema. Dermatologic--skin is mildly dry Neurologic--cranial nerves II through XII grossly intact. Rheumatologic--normal range of motion. Psychiatric--confused Results & Data Results & Data ([facility]) Vital Signs (Past 12 Hours) Vital Signs Temp Pulse Resp BP Pulse Ox 07/11/21 19:36 36.9 C 100 H 18 154/90 H 96 07/11/21 15:44 36.7 C 118 H 17 163/92 H 96 07/11/21 11:24 36.8 C 100 H 18 161/75 H 94 PG Care Time/CCT Total # of Minutes Spent Total Time Spent with Patient: Total time spent is greater than 50% in coordination of care (as documented) at patient's floor/unit and/or counseling patient: Coding Level of Care Code 47466 Subseq Hosp Care Lvl 3 Diagnoses Confusion R41.0 COVID-19 U07.1 CAD (coronary artery disease) I25.10 A-fib I48.91 Atrial fibrillation type: unspecified Generalized weakness R53.1 GERD (gastroesophageal reflux disease) K21.9 Myasthenia gravis G70.00 Depression F32.9 Hypertension I10 Hypertension type: essential hypertension Bipolar 1 disorder F31.9 Sleep apnea G47.30 Hyperlipidemia E78.5 Hyperlipidemia type: unspecified Time Spent (min) 35 (1) A-fib Atrial fibrillation type: unspecified Qualified Code(s): I48.91 - Unspecified atrial fibrillation (2) Hyperlipidemia Hyperlipidemia type: unspecified Qualified Code(s): E78.5 - Hyperlipidemia, unspecified (3) Hypertension Hypertension type: essential hypertension Qualified Code(s): I10 - Essential (primary) hypertension
[2021-07-12 07:23] LABS: Basophils # (auto) 0.03 K/uL (0-0.2); Basophils % (auto) 0.5 %; Eosinophils # (auto) 0.16 K/uL (0-0.5); Eosinophils % (auto) 2.9 %; Hematocrit (blood only) 29.6 % (37-47); Hemoglobin 9.6 g/dL (12.0-16.0); Immature Granulocytes # (auto) 0.01 K/uL (0.00-0.02); Immature Granulocytes % (auto) 0.2 %; Lymphocytes % (auto) 32.5 %; Mean Corpuscular Hemoglobin 30.3 pg (25-34); Mean Corpuscular Hgb Conc 32.4 g/dL (32-36); Mean Corpuscular Volume 93.4 fL (80-100); Mean Platelet Volume 9.2 fL (7.4-10.4); Monocytes # (auto) 0.71 K/uL (0.11-0.59); Monocytes % (auto) 12.8 %; Neutrophils # (auto) 2.82 K/uL (1.4-6.5); Neutrophils % (auto) 51.1 %; Platelet Count 177 K/uL (130-400); RDW Coefficient of Variation 16.2 % (11.5-14.5); RDW Standard Deviation 55.6 fL (36.4-46.3); Red Blood Count 3.17 M/uL (4.2-5.4); White Blood Count 5.53 K/uL (4.8-10.8)
[2021-07-12 07:58] LABS: BUN Creatinine Ratio 13.2 (10-20); Calcium 8.3 mg/dl (8.5-10.1); Creatinine Clr Calc Pharmacy 50.3 ml/min; Est GFR (African American) 92.3 ml/min; Est GFR (Non-African American) 79.7 ml/min; Potassium 3.5 mmol/L (3.5-5.1)
[2021-07-12 08:01] LABS: Albumin Globulin Ratio 0.6 (0.9-2); Bilirubin,Total 0.7 mg/dl (0.2-1); Globulin 3.1 gm/dl (2.5-4.0); Total Protein 5.1 gm/dl (6.4-8.2)
[2021-07-12] MEDS: FAMOTIDINE 20 MG in SYRINGE 3 ML IV SCH ×2 (08:15→21:34)
--- NOTE | 2021-07-12 08:17 | Magnetic Resonance Report ---
MRI OF THE BRAIN WITHOUT CONTRAST CLINICAL HISTORY: altered mental status, fell out of bed COMPARISON STUDY: MRI of the brain February 06, 2018. Head CT and CTA of the head July 10, 2021. TECHNIQUE: Utilizing a 1.5 Cassy magnet and dedicated coil, multiplanar, multiecho imaging of the bra in was performed without IV contrast. FINDINGS: This exam is mildly compromised motion artifact. There are no foci of restricted diffusion to suggest acute infarct. No acute intracranial hemorrhage, midline shift or mass effect is present. Ventricular system is stable. Basal cisterns are patent. There are no extra axial collections. Note i s made of an old 1.5 cm infarct within the right cerebellar hemisphere. There are additional old lacu rola infarcts within the cerebellar hemispheres and the anterior right thalamus. White matter T2 hyper intense foci suggest small vessel disease. There is moderate atrophy. No intracranial masses identifi ed on this unenhanced exam. Calvarial signal is grossly normal. There is no evidence for sinusitis. IMPRESSION: 1. No acute intracranial findings. 2. Exam mildly compromised by motion artifact. 3. 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 ACT 112: Negative or not required by law. Electronically signed by: Wes Lui M.D. 07/12/2021 8:16 AM
[2021-07-12] MEDS ORDERED: LOPERAMIDE HCL 2 MG CAP PO PRN (13:15)
--- NOTE | 2021-07-12 15:26 | Electrocardiogram Report ---
Test Reason : Blood Pressure : / mmHG Vent. Rate : 069 BPM Atrial Rate : 078 BPM P-R Int : 000 ms QRS Dur : 068 ms QT Int : 314 ms P-R-T Axes : 000 045 172 degrees QTc Int : 336 ms Atrial fibrillation Abnormal ECG When compared with ECG of 24-JUN-2021 11:30, ST now depressed in Anterolateral leads T wave inversion now evident in Inferior leads T wave inversion now evident in Anterolateral leads Confirmed by Compa Jaimes ([id number]) on 07/12/2021 3:26:33 PM Referred By: [facility] Confirmed By:Compa Jaimes
[2021-07-12] MEDS: ASPIRIN 81 MG ECTAB PO SCH (16:30)
[2021-07-12] MEDS: METOPROLOL TARTRATE 50 MG TAB PO SCH ×2 (16:30→21:23)
[2021-07-12] MEDS: THIAMINE HCL 100 MG TAB PO SCH (16:30)
[2021-07-12] MEDS: FERROUS GLUCONATE 324 MG TAB PO SCH (16:31)
--- NOTE | 2021-07-12 20:36 | Hospitalist Progress Note ---
Date of Service July 12, 2021 Assessment & Plan (1) Confusion: Plan: Confusion- Unclear etiology This appears to be ongoing since February of this past year. She also has not been improving in regards to her anorexia. Her confusion is likely a combination of her lack of nutrition, possibly infection with covid, and poorly controlled depression. Spoke with daughter on 07/11. She is open to have another palliative care consult given her poor response to her previous hospital stays and decreased quality of life. Awaiting input. Was initially seen as a stroke alert in the ED. Admit with stroke that TPA protocol order set Consult PT/OT/speech/neurology History of myasthenia gravis and progressive generalized weakness. Daughter notes that her mother has not been the same since she broke her hip in February CT head, CTA head and neck all negative for acute event MRI brain without contrast negative.. Patient has bacteria in urine and is not complaining of any urinary symptoms. (2) COVID-19: Plan: The patient has had a number of positive and negative test, and continues to be asymptomatic. She will be placed in with Covid restrictions, but will not be treated (3) CAD (coronary artery disease): Plan: CAD/hypertension/atrial fibrillation- Medications will be on hold until patient is more alert less confused She is presently rate controlled and with good blood pressure (4) A-fib: Plan: See above Hold Eliquis overnight, if not able to take Eliquis in the morning, will need to start heparin infusion (5) Generalized weakness: Plan: Will need a PT/OT consult (6) GERD (gastroesophageal reflux disease): Plan: Holding oral pantoprazole Placed on IV famotidine (7) Myasthenia gravis: (8) Depression: Plan: Meds on hold until less confused (9) Hypertension: Plan: See above (10) Bipolar 1 disorder: Plan: Meds on hold until less confused (11) Sleep apnea: Plan: CPAP at bedtime as needed (12) Hyperlipidemia: Plan: Holding rosuvastatin for now Admission and Anticipated Discharge Date Admission Date: July 10, 2021 Subjective 81 yo female remains confused, focused on the budget and how much it will cost for her to get a shower. She does appear to be less agitated however. Review of Systems Review of Systems: All systems reviewed & are unremarkable except as noted in HPI & below Physical Exam Physical Exam: The patient is awake, olman in bed and in no acute distress. HEENT--PERRL, EOMI, mucous membranes and oropharynx dry. Neck--supple. No JVD. No bruits. Thyroid normal, trachea midline, no adenopathy. Heart--normal S1 and S2. No murmurs, rubs or gallops. Lungs--clear bilaterally, no respiratory distress, no accessory muscle use. Abdomen--normal bowel sounds and soft. Nontender. Nondistended. Extremities--no cyanosis or clubbing. No edema. Dermatologic--skin is mildly dry Neurologic--cranial nerves II through XII grossly intact. Rheumatologic--normal range of motion. Psychiatric--confused Results & Data [facility] Vital Signs (Past 12 Hours) Vital Signs Temp Pulse Pulse Resp BP Pulse Ox 07/12/21 19:38 36.9 C 63 18 151/72 H 97 07/12/21 15:43 108 H 07/12/21 15:40 36.9 C 100 H 18 128/69 91 07/12/21 12:33 37.0 C 107 H 20 150/103 H 99 PG Care Time/CCT Total # of Minutes Spent Total Time Spent with Patient: Total time spent is greater than 50% in coordination of care (as documented) at patient's floor/unit and/or counseling patient: Coding Level of Care Code 00183 Subseq Hosp Care Lvl 2 Diagnoses Confusion R41.0 COVID-19 U07.1 CAD (coronary artery disease) I25.10 A-fib I48.91 Atrial fibrillation type: unspecified Generalized weakness R53.1 GERD (gastroesophageal reflux disease) K21.9 Myasthenia gravis G70.00 Depression F32.9 Hypertension I10 Hypertension type: essential hypertension Bipolar 1 disorder F31.9 Sleep apnea G47.30 Hyperlipidemia E78.5 Hyperlipidemia type: unspecified Time Spent (min) 25 (1) A-fib Atrial fibrillation type: unspecified Qualified Code(s): I48.91 - Unspecified atrial fibrillation (2) Hyperlipidemia Hyperlipidemia type: unspecified Qualified Code(s): E78.5 - Hyperlipidemia, unspecified (3) Hypertension Hypertension type: essential hypertension Qualified Code(s): I10 - Essential (primary) hypertension
[2021-07-12] MEDS ORDERED: LORazepam 0.5 MG/1 ML VIAL IV PRN (20:58)
[2021-07-12] MEDS: QUEtiapine FUMARATE 100 MG TABLET PO SCH (21:25)
[2021-07-12] MEDS: ROSUVASTATIN CALCIUM 10 MG TAB PO SCH (21:25)
[2021-07-12] MEDS: APIXABAN 5 MG TABLET PO SCH (21:25)
[2021-07-12] MEDS: lamoTRIgine 100 MG TAB PO SCH (21:26)
[2021-07-12] MEDS: MIRTAZAPINE TAB 15 MG TAB PO SCH (21:26)
[2021-07-12] MEDS: PREGABALIN 75 MG CAP PO SCH (21:34)
[2021-07-13 07:40] LABS: Hematocrit (blood only) 31.1 % (37-47); Hemoglobin 9.9 g/dL (12.0-16.0); Mean Corpuscular Hemoglobin 29.7 pg (25-34); Mean Corpuscular Hgb Conc 31.8 g/dL (32-36); Mean Corpuscular Volume 93.4 fL (80-100); Mean Platelet Volume 9.5 fL (7.4-10.4); Platelet Count 187 K/uL (130-400); RDW Coefficient of Variation 16.3 % (11.5-14.5); RDW Standard Deviation 55.3 fL (36.4-46.3); Red Blood Count 3.33 M/uL (4.2-5.4); White Blood Count 5.03 K/uL (4.8-10.8)
[2021-07-13 08:15] LABS: BUN Creatinine Ratio 12.5 (10-20); Calcium 8.6 mg/dl (8.5-10.1); Creatinine Clr Calc Pharmacy 70.9 ml/min; Est GFR (African American) 77.7 ml/min; Est GFR (Non-African American) 67.1 ml/min; Potassium 3.4 mmol/L (3.5-5.1)
[2021-07-13] MEDS ORDERED: CYANOCOBALAMIN 500 MCG TABLET (VITAMIN B-12) PO SCH (09:00)
[2021-07-13] MEDS: QUEtiapine FUMARATE 25 MG TABLET PO PRN ×3 (09:26→22:10)
[2021-07-13] MEDS: FOLIC ACID 1 MG TAB PO SCH (09:27)
[2021-07-13] MEDS: ASPIRIN 81 MG ECTAB PO SCH (09:27)
[2021-07-13] MEDS: PANTOprazole 40 MG TAB PO SCH (09:27)
[2021-07-13] MEDS: CHOLECALCIFEROL 1,000 UNITS 25 MCG TAB PO SCH (09:27)
[2021-07-13] MEDS: FERROUS GLUCONATE 324 MG TAB PO SCH ×2 (09:28→17:37)
[2021-07-13] MEDS: ROFLUMILAST 500 MCG TAB PO SCH (09:29)
[2021-07-13] MEDS: APIXABAN 5 MG TABLET PO SCH ×2 (09:29→20:43)
[2021-07-13] MEDS: METOPROLOL TARTRATE 50 MG TAB PO SCH ×4 (09:29→20:46)
[2021-07-13] MEDS: THIAMINE HCL 100 MG TAB PO SCH (09:29)
[2021-07-13] MEDS: FAMOTIDINE 20 MG in SYRINGE 3 ML IV SCH (12:47)
--- NOTE | 2021-07-13 14:11 | Palliative Care Consultation ---
Date of Consultation July 13, 2021 Assessment & Plan (1) Palliative care encounter: Ms. Collier is a 81 year old female who presented to the [facility] from [place] [facility] when she was found on the floor next to her bed with altered mental status. On evaluation in the ED, a head CT was performed with Ed infarcts, but reportedly no new acute concerns. The patient has received full COVID-19 vaccination; however, has had multiple positive covid results on 04/10, 05/08, 06/17 and 07/10. She was negative on 05/31. Additional PMH includes: atrial fibrillation, anemia of chronic disease, CAD, generalized weakness, GERD, B12 deficiency, hypothyroidism, myasthenia gravis, COPD, hypertension, depression, bipolar 1 disorder and hyperlipidemia. She did have a positive urine culture on admission. Ms. Collier broke her hip back in February, and apparently has not been 'the same' since this event per family conversation. 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 Palliative Medicine was consulted to discuss overall goals of care. I met with Ms. Collier in room 243. She was awake, alert, and oriented to self and location, but was confused regarding her situation. I was able to hold a conversation with her and she could answer simple questions like her and daughters name; however, could not reflect on her medical ailments. I did reach out to her daughter, Grazyna, at [phone] and spoke at length about her downward progression over the past few months. She said that ideally she would want her mother to be at home with her Dad, but he is 90 years old and unable to care for her. They are very happy with the care she has received thus far at [facility] and would like her to return there. After discussing hospice and its benefits, she would like to proceed with having hospice in place when she returns to [facility]. For now, she would like to continue with current medications as she is able to take them, but would like to shift away from repeat hospitalizations/appointments, etc. We discussed her lack of appetite and progression with her dementia. Family ok with comfort feeds and known aspiration risk as disease process advances. 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 We discussed code status and confirmed that in the event of cardiac and respiratory arrest, she would not want aggressive and heroic measures taken. She is an established DNR/DNI in her living will which we will reflect here. We did discuss and complete a POLST over the phone which is described in detail below. For now, continue current treatment and work towards returning to [facility] with Hospice support. At this time, no symptom management needs are required. The above was discussed with the hospitalist and onsite case manager. Please contact Palliative Medicine with any further questions. (2) POLST (Physician Orders for Life-Sustaining Treatment): POLST discussed and completed over the phone with the patients daughter, Grazyna, at [phone]. As written, please honor DNR/DNI, Comfort Measures Only, trial abx, and no artificial nutrition/hydration. Comfort feeds as requested. Aviod future hospitalizations unless cleared by family. A copy and original placed on the chart. Copy will return to [facility] with the patient. (3) Senile degeneration of brain: (4) Generalized weakness: (5) Dysphagia: History of Present Illness Reason for Consultation: Goals of care Requesting Physician: Dr. Rodrigues Attending Physician: Aly Rodrigues History of Present Illness Ms. Collier is a 81 year old female who presented to the [facility] from [place] [facility] when she was found on the floor next to her bed with altered mental status. On evaluation in the ED, a head CT was performed with Ed infarcts, but reportedly no new acute concerns. The patient has received full COVID-19 vaccination; however, has had multiple positive covid results on 04/10, 05/08, 06/17 and 07/10. She was negative on 05/31. Additional PMH includes: atrial fibrillation, anemia of chronic disease, CAD, generalized weakness, GERD, B12 deficiency, hypothyroidism, myasthenia gravis, COPD, hypertension, depression, bipolar 1 disorder and hyperlipidemia. She did have a positive urine culture on admission. Ms. Collier broke her hip back in February, and apparently has not been 'the same' since this event per family conversation. 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 Palliative Medicine was consulted to discuss overall goals of care. Please see A/P for further details. Thanks for involving Palliative Medicine with this individual. Allergies Allergy/AdvReac Type Severity Reaction Status Date / Time metoclopramide Allergy Intermediate ESSENTIAL Verified 07/10/21 00:25 TREMORS clopidogrel Allergy Mild HIVES Verified 07/10/21 00:25 diazepam Allergy Mild DEPRESSION Verified 07/10/21 00:25 diltiazem Allergy Mild Light Verified 07/10/21 00:25 headed erythromycin base Allergy Mild EES, TAKES Verified 07/10/21 00:25 Z-PACKS W/O RXN gabapentin Allergy Mild States Verified 07/10/21 00:25 hands catch fire latex Allergy Mild rips skin Verified 07/10/21 00:25 off lisinopril Allergy Mild COUGH Verified 07/10/21 00:25 losartan Allergy Mild HIVES Verified 07/10/21 00:25 micafungin Allergy Mild rash Verified 07/10/21 00:25 oxycodone Allergy Mild INC. Verified 07/10/21 00:25 DEPRESSION Penicillins Allergy Mild Diarrhea Verified 07/10/21 00:25 promethazine Allergy Mild TROUBLE Verified 07/10/21 00:25 FOCUSING SPEAKING AT HIGHER DOSES Sulfa (Sulfonamide Allergy Mild SKIN Verified 07/10/21 00:25 Antibiotics) BECOMES PHOTOSENSITIVE AND BECOMES RED bupropion Allergy Unknown unknown Verified 07/10/21 00:25 dicyclomine Allergy Unknown Unknown Verified 07/10/21 00:25 potassium chloride Allergy Unknown Unknown Verified 07/10/21 00:25 sucralfate Allergy Unknown Unknown Verified 07/10/21 00:25 [id number]-[id number] Reductase AdvReac Intermediate Diarrhea Verified 07/10/21 00:25 Inhibitor amoxicillin AdvReac Mild DIARRHEA Verified 07/10/21 00:25 clavulanic acid AdvReac Mild DIARRHEA Verified 07/10/21 00:25 hydrocodone AdvReac Mild "dont like Verified 07/10/21 00:25 how it makes me feel" Home Medications Medication Instructions Recorded Confirmed Type nitroglycerin 0.4 mg sublingual 0.4 mg SUBLINGUAL UD PRN 01/01/19 07/10/21 History tablet (Nitrostat) roflumilast 500 mcg tablet 500 mcg PO QAM 01/01/19 07/10/21 History Oxygen Home #1 ea 07/21/20 07/10/21 History cholecalciferol (vitamin D3) 25 25 mcg PO DAILY 01/11/21 07/10/21 History mcg (1,000 unit) capsule cyanocobalamin (vitamin B-12) 5,000 mcg PO DAILY 01/11/21 07/10/21 History 5,000 mcg capsule rosuvastatin 10 mg tablet 10 mg PO HS 01/11/21 07/10/21 History ferrous gluconate 324 mg (38 mg 324 mg PO BIDM #60 tab 03/11/21 07/10/21 Rx iron) tablet ondansetron HCl 4 mg tablet 4 mg PO Q8H PRN #6 tab 03/11/21 07/10/21 Rx (Zofran) pregabalin 75 mg capsule 75 mg PO HS #30 cap 03/11/21 07/10/21 Rx apixaban 5 mg tablet (Eliquis) 5 mg PO BID #30 tab 04/04/21 07/10/21 Rx folic acid 1 mg tablet 1 mg PO QAM #30 tab 05/31/21 07/10/21 Rx mirtazapine 15 mg tablet 15 mg PO HS #30 tab 05/31/21 07/10/21 Rx multivitamin-ferrous 1 tab PO QAM #30 tab 05/31/21 07/10/21 Rx fumarate-folic acid 18 mg-400 mcg tablet (Certavite-Antioxidant) pantoprazole 40 mg tablet,delayed 40 mg PO QAM #30 tab 05/31/21 07/10/21 Rx release potassium chloride 10 mEq 10 meq PO QAM #30 tab 05/31/21 07/10/21 Rx tablet,extended release(part/cryst) (Klor-Con M) quetiapine 100 mg tablet 100 mg PO HS #30 tab 05/31/21 07/10/21 Rx thiamine HCl (vitamin B1) 100 mg 100 mg PO QAM #30 tab 05/31/21 07/10/21 Rx tablet (Vitamin B-1) aspirin 81 mg chewable tablet 81 mg PO DAILY 06/17/21 07/10/21 History famotidine 20 mg tablet 20 mg PO BIDM 06/17/21 07/10/21 History loperamide 2 mg tablet 4 mg PO Q12 PRN 06/17/21 07/10/21 History digoxin 125 mcg (0.125 mg) tablet 125 mcg PO DAILY@1600 30 Days #30 06/23/21 07/10/21 Rx (Digitek) tab metoprolol tartrate 50 mg tablet 50 mg PO TID 30 Days #90 tab 06/23/21 07/10/21 Rx acetaminophen 325 mg tablet 325 mg PO Q6 PRN MDD 3g 07/10/21 07/10/21 History (Tylenol) colestipol 1 gram tablet (Colestid) 2 g PO BID 07/10/21 07/10/21 History lamotrigine 150 mg tablet 150 mg PO HS 07/10/21 07/10/21 History quetiapine 50 mg tablet 50 mg PO Q12 PRN 07/10/21 07/10/21 History Patient History Medical History (Updated 07/13/21 @ 15:02 by KIM Valdez) Acute GI bleeding Anemia REASON FOR COLONOSCOPY 07/2019 Atrial fibrillation Atrial fibrillation with rapid ventricular response Bipolar 1 disorder Breast cancer (08/23/14) "Abnormal bilateral mammogram Status post core needle biopsy 08/23/2014 revealing intraductal papilloma on the left Right breast showed invasive ductal carcinoma Status post right lumpectomy and sentinel lymph node biopsy 10/08/2014 Stage [id number] Status post completion of radiation therapy 12/24/2014 utilizing hypo- fractionation received 5000 cGy" Breast cancer, right 2013--stage 1--lumpectomy and radiation Change in vision Chronic obstructive pulmonary disease inhaler daily Closed fracture of left hip Degenerative joint disease Depression Dysphagia Elevated troponin I level Fall GERD (gastroesophageal reflux disease) Heme + stool History of colon polyps Hyperlipidemia Hypertension Hypokalemia Hypothyroidism Medical marijuana use Myocardial Infarction "silent" in --follows with Dr. Gibbs On home oxygen therapy 2L N/C at Palliative care encounter Pancreatitis hx of Papilloma of breast left POLST (Physician Orders for Life-Sustaining Treatment) Senile degeneration of brain Sleep apnea Temporal arteritis Unstable angina Unstable angina Surgical History History of bilateral cataract extraction History of bilateral tubal ligation History of breast surgery removal of papilloma of left breast History of cardiac cath x3--last ---no stents History of cholecystectomy History of colonoscopy History of esophagogastroduodenoscopy (EGD) History of lumpectomy of right breast History of right breast biopsy malignant History of tooth extraction all teeth removed History of total hysterectomy with bilateral salpingo-oophorectomy (BSO) Family History Grandfather (Paternal) Family history of diabetes mellitus Other No family history of adverse response to anesthesia Social History Smoking Status: Former smoker Cigarettes Per Day: 20 a day; Second Hand Exposure: No; Hx Alcohol Use: No Hx Substance Use: No Preferred Language: Wolof Communication Ability: Impaired Clerk Television Production Required: No Beliefs That Will Affect Care: None marital status: Current Living Situation: Retirement Feels Safe at Home: Yes Assistive Devices: Walker Review of Systems Review of Systems: [place] [facility] Assessment Scale: Pain: 0/3 SOB: 1/3 Anxiety: 1/3 Tiredness: 2/3 Lack of Appetite: 2/3 Palliative Performance Scale: 30% Physical Exam Constitutional: well developed, + frail appearing, cooperative and comfortable ENMT: Mouth: + dry oral mucous membranes Respiratory: normal respiratory effort Auscultation: + diminished lung sounds Cardiovascular: Rate/Rhythm: regular rate and regular rhythm Heart Sounds: normal S1 and normal S2 Extremities: normal capillary refill and + edema Gastrointestinal (Abdomen): Inspection/Auscultation: normal bowel sounds Percussion/Palpation: abdomen soft Skin: + pallor Psychiatric: Insight: + limited insight Judgement: + limited judgement Results & Data ([facility]) Vital Signs (Past 12 Hours) Vital Signs Temp Pulse Pulse Resp BP Pulse Ox 07/13/21 11:59 36.4 C L 80 19 100/59 L 98 07/13/21 08:00 54 L 07/13/21 07:55 36.4 C L 74 18 136/68 91 07/13/21 05:14 36.7 C 66 16 137/63 96 07/13/21 04:09 126/61 PG Care Time/CCT Total # of Minutes Spent Total Time Spent with Patient: Total time spent is greater than 50% in coordination of care (as documented) at patient's floor/unit and/or counseling patient: 70 minutes with > 50% of that time spent assessing the patient, discussing goals of care with family, addressing any symptom management needs, and collaborating with IDT Coding Level of Care Code 53348 Initial Inpt Care Lvl 3 Diagnoses Palliative care encounter Z51.5 Senile degeneration of brain G31.1 Generalized weakness R53.1 Dysphagia R13.10 POLST (Physician Orders for Life-Sustaining Treatment) Z78.9 Time Spent (min) 70
[2021-07-13] MEDS: FAMOTIDINE 20 MG TAB PO SCH ×2 (20:39→20:45)
[2021-07-13] MEDS: lamoTRIgine 100 MG TAB PO SCH (20:43)
[2021-07-13] MEDS: MIRTAZAPINE TAB 15 MG TAB PO SCH (20:44)
[2021-07-13] MEDS: ROSUVASTATIN CALCIUM 10 MG TAB PO SCH (20:44)
[2021-07-13] MEDS: PREGABALIN 75 MG CAP PO SCH (20:44)
[2021-07-13] MEDS: QUEtiapine FUMARATE 100 MG TABLET PO SCH ×2 (20:44→22:38)
--- NOTE | 2021-07-13 22:03 | Hospitalist Progress Note ---
Date of Service July 13, 2021 Assessment & Plan (1) Confusion: Plan: Confusion- Unclear etiology This appears to be ongoing since February of this past year. She also has not been improving in regards to her anorexia. Her confusion is likely a combination of her lack of nutrition, possibly infection with covid, and poorly controlled depression. Spoke with daughter on 07/11. She is open to have another palliative care consult given her poor response to her previous hospital stays and decreased quality of life. Appreciate input from palliative care. Code status changed to DNR. Earlier in the hospital stay: Was initially seen as a stroke alert in the ED. Admit with stroke that TPA protocol order set Consult PT/OT/speech/neurology History of myasthenia gravis and progressive generalized weakness. Daughter notes that her mother has not been the same since she broke her hip in February CT head, CTA head and neck all negative for acute event MRI brain without contrast negative.. Patient has bacteria in urine and is not complaining of any urinary symptoms. Likely asymptomatic bacteruria. (2) COVID-19: Plan: The patient has had a number of positive and negative test, and continues to be asymptomatic. She will be placed in with Covid restrictions, but will not be treated (3) CAD (coronary artery disease): Plan: CAD/hypertension/atrial fibrillation- Medications will be on hold until patient is more alert less confused She is presently rate controlled and with good blood pressure (4) A-fib: Plan: See above Hold Eliquis overnight, if not able to take Eliquis in the morning, will need to start heparin infusion (5) Generalized weakness: Plan: Will need a PT/OT consult (6) GERD (gastroesophageal reflux disease): Plan: Holding oral pantoprazole Placed on IV famotidine (7) Myasthenia gravis: (8) Depression: Plan: Meds on hold until less confused (9) Hypertension: Plan: See above (10) Bipolar 1 disorder: Plan: Meds on hold until less confused (11) Sleep apnea: Plan: CPAP at bedtime as needed (12) Hyperlipidemia: Plan: Holding rosuvastatin for now Admission and Anticipated Discharge Date Admission Date: July 10, 2021 Subjective Patient remains confused. Review of Systems Review of Systems: All systems reviewed & are unremarkable except as noted in HPI & below Physical Exam Physical Exam: The patient is awake, sitting in bed and in no acute distress. HEENT--PERRL, EOMI, mucous membranes and oropharynx dry. Neck--supple. No JVD. No bruits. Thyroid normal, trachea midline, no adenopathy. Heart--normal S1 and S2. No murmurs, rubs or gallops. Lungs--clear bilaterally, no respiratory distress, no accessory muscle use. Abdomen--normal bowel sounds and soft. Nontender. Nondistended. Extremities--no cyanosis or clubbing. No edema. Dermatologic--skin is mildly dry Neurologic--cranial nerves II through XII grossly intact. Rheumatologic--normal range of motion. Psychiatric--confused Results & Data Results & Data ([facility]) Vital Signs (Past 12 Hours) Vital Signs Temp Pulse Pulse Resp BP Pulse Ox 07/13/21 19:55 36.5 C 64 18 130/62 94 07/13/21 18:37 54 L 07/13/21 16:01 36.6 C 56 L 18 125/66 99 07/13/21 11:59 36.4 C L 80 19 100/59 L 98 PG Care Time/CCT Total # of Minutes Spent Total Time Spent with Patient: Total time spent is greater than 50% in coordination of care (as documented) at patient's floor/unit and/or counseling patient: Coding Level of Care Code 66322 Subseq Hosp Care Lvl 2 Diagnoses Confusion R41.0 COVID-19 U07.1 CAD (coronary artery disease) I25.10 A-fib I48.91 Atrial fibrillation type: unspecified Generalized weakness R53.1 GERD (gastroesophageal reflux disease) K21.9 Myasthenia gravis G70.00 Depression F32.9 Hypertension I10 Hypertension type: essential hypertension Bipolar 1 disorder F31.9 Sleep apnea G47.30 Hyperlipidemia E78.5 Hyperlipidemia type: unspecified Time Spent (min) 25 (1) A-fib Atrial fibrillation type: unspecified Qualified Code(s): I48.91 - Unspecified atrial fibrillation (2) Hyperlipidemia Hyperlipidemia type: unspecified Qualified Code(s): E78.5 - Hyperlipidemia, unspecified (3) Hypertension Hypertension type: essential hypertension Qualified Code(s): I10 - Essential (primary) hypertension
[2021-07-14] MEDS ORDERED: STROKE PATIENT DISCHARGE STA (11:02)
--- NOTE | 2021-07-14 11:09 | Discharge Summary ---
Date of Service July 14, 2021 Admission HPI Per Admitting Provider The patient is a 81-year-old female with a past medical history including COVID- 19, atrial fibrillation, anemia, CAD, generalized weakness, GERD, B12 deficiency, iron deficiency, hypothyroidism, myasthenia gravis,, COPD, hypertension, depression, bipolar 1 disorder and hyperlipidemia. Family reports they were called by the nursing facility when nursing there noted patient was on the floor next to her bed, and confused. Work-up in the emergency department: CT scan of head showed chronic lacunar answer Ed infarcts. CTA head and neck were both negative for acute events. Pertinent laboratories: Hemoglobin 10.6, hematocrit 30.9 and albumin 2.2. Patient was given COVID-19 positive, but has variable negative and positive dates, and has not been symptomatic. Patient was noted to be COVID-19 positive on the following dates: 04/10, 05/08, 06/17 and today. She was negative on 05/31. Patient did receive full COVID-19 vaccine series. Principal Diagnosis multifactorial confusion: unknown etiology Discharge Exam The patient is awake, sitting in bed and in no acute distress. HEENT--PERRL, EOMI, mucous membranes and oropharynx dry. Neck--supple. No JVD. No bruits. Thyroid normal, trachea midline, no adenopathy. Heart--normal S1 and S2. No murmurs, rubs or gallops. Lungs--clear bilaterally, no respiratory distress, no accessory muscle use. Abdomen--normal bowel sounds and soft. Nontender. Nondistended. Extremities--no cyanosis or clubbing. No edema. Dermatologic--skin is mildly dry Neurologic--cranial nerves II through XII grossly intact. Rheumatologic--normal range of motion. Psychiatric--confused Discharge Data Allergies Allergy/AdvReac Type Severity Reaction Status Date / Time metoclopramide Allergy Intermediate ESSENTIAL Verified 07/10/21 00:25 TREMORS clopidogrel Allergy Mild HIVES Verified 07/10/21 00:25 diazepam Allergy Mild DEPRESSION Verified 07/10/21 00:25 diltiazem Allergy Mild Light Verified 07/10/21 00:25 headed erythromycin base Allergy Mild EES, TAKES Verified 07/10/21 00:25 Z-PACKS W/O RXN gabapentin Allergy Mild States Verified 07/10/21 00:25 hands catch fire latex Allergy Mild rips skin Verified 07/10/21 00:25 off lisinopril Allergy Mild COUGH Verified 07/10/21 00:25 losartan Allergy Mild HIVES Verified 07/10/21 00:25 micafungin Allergy Mild rash Verified 07/10/21 00:25 oxycodone Allergy Mild INC. Verified 07/10/21 00:25 DEPRESSION Penicillins Allergy Mild Diarrhea Verified 07/10/21 00:25 promethazine Allergy Mild TROUBLE Verified 07/10/21 00:25 FOCUSING SPEAKING AT HIGHER DOSES Sulfa (Sulfonamide Allergy Mild SKIN Verified 07/10/21 00:25 Antibiotics) BECOMES PHOTOSENSITIVE AND BECOMES RED bupropion Allergy Unknown unknown Verified 07/10/21 00:25 dicyclomine Allergy Unknown Unknown Verified 07/10/21 00:25 potassium chloride Allergy Unknown Unknown Verified 07/10/21 00:25 sucralfate Allergy Unknown Unknown Verified 07/10/21 00:25 Pwpnday-Owx-Nfs Reductase AdvReac Intermediate Diarrhea Verified 07/10/21 00:25 Inhibitor amoxicillin AdvReac Mild DIARRHEA Verified 07/10/21 00:25 clavulanic acid AdvReac Mild DIARRHEA Verified 07/10/21 00:25 hydrocodone AdvReac Mild "dont like Verified 07/10/21 00:25 how it makes me feel" Consultations 07/10/21 03:51 ED Decision to Admit Stat 07/10/21 05:45 Consult Neurology Routine 07/11/21 17:52 Consult Palliative Care Routine Ordered Studies 07/10/21 00:02 CT angio head w con Urgent CT angio neck with con Urgent CT head/brain wo con Urgent 07/11/21 18:25 MR brain wo con Routine Hospital Course (1) Confusion: Confusion- Unclear etiology This appears to be ongoing since February of this past year. She also has not been improving in regards to her anorexia. Her confusion is likely a combination of her lack of nutrition, possibly infection with covid, and poorly controlled depression. Spoke with daughter on 07/11. She is open to have another palliative care consult given her poor response to her previous hospital stays and decreased quality of life. Appreciate input from palliative care. Code status changed to DNR on 07/13 Patient will be discharged to hospice on 07/14 Earlier in the hospital stay: Was initially seen as a stroke alert in the ED. Admit with stroke that TPA protocol order set Consult PT/OT/speech/neurology History of myasthenia gravis and progressive generalized weakness. Daughter notes that her mother has not been the same since she broke her hip in February CT head, CTA head and neck all negative for acute event MRI brain without contrast negative.. Patient has bacteria in urine and is not complaining of any urinary symptoms. Likely asymptomatic bacteruria. (2) COVID-19: The patient has had a number of positive and negative test, and continues to be asymptomatic. She will be placed in with Covid restrictions, but will not be treated She was transferred off the COVID unit 2 days ago. (3) CAD (coronary artery disease): CAD/hypertension/atrial fibrillation- Medications will be on hold until patient is more alert less confused She is presently rate controlled and with good blood pressure (4) A-fib: See above Hold Eliquis overnight, if not able to take Eliquis in the morning, will need to start heparin infusion (5) Generalized weakness: Will need a PT/OT consult (6) GERD (gastroesophageal reflux disease): Holding oral pantoprazole Placed on IV famotidine (7) Myasthenia gravis: (8) Depression: Meds on hold until less confused (9) Hypertension: See above (10) Bipolar 1 disorder: Meds on hold until less confused (11) Sleep apnea: CPAP at bedtime as needed (12) Hyperlipidemia: Holding rosuvastatin for now Total Time Total Time Spent Total Time Spent (In Minutes): 32 Discharge Plan Discharge Items Patient Disposition: Hospice - Medical Facility Reason For Visit: AMS, FELL OUT OF BED Discharge Diagnosis: AMS Activity: Resume your previous activity Non-emergency contact: Primary Care Provider Call non-emergency contact if: you have any medication questions Follow-up/Referrals: [facility] [Primary Care Provider] - Diet: Regular Addtl Attending Provider Instructions: You have been hospitalized for an acute medical problem. During your stay at [facility], we have made an effort to correct the problem that brought you to the hospital while keeping you as comfortable as possible. Medications were used to bring your condition under control and your discharge instructions will include directions for any medications you should take after leaving the hospital. Please make sure you see your Primary Care Provider as part of your follow up plan. Pending Studies at Discharge: No Stand-Alone Forms: My [facility] Skilled Items Patient informed of condition?: No DNR: Yes Discharge Level of Care: Skilled Communicable Disease: No Discharge Prognosis: Stable Lines: None Urinary Catheter: No Medications and DC Order Prescriptions: Continued (DME) Oxygen Home Liters Per Minute See Rx Instructions .ROUTE .MEDSUPPLY Qty: 1 RF: 0 rosuvastatin 10 mg tablet 10 mg PO HS RF: 0 cholecalciferol (vitamin D3) 25 mcg (1,000 unit) capsule 25 mcg PO DAILY RF: 0 cyanocobalamin (vitamin B-12) 5,000 mcg capsule 5,000 mcg PO DAILY RF: 0 nitroglycerin [Nitrostat] 0.4 mg Tablet, Sublingual 0.4 mg Sublingual UD PRN (Reason: Chest Pain) RF: 0 roflumilast 500 mcg tablet 500 mcg PO QAM RF: 0 quetiapine 100 mg Tablet 100 mg PO HS Qty: 30 RF: 0 mirtazapine 15 mg Tablet 15 mg PO HS Qty: 30 RF: 0 potassium chloride [Klor-Con M10] 10 mEq Tablet,Er Particles/Crystals 10 meq PO QAM Qty: 30 RF: 0 thiamine HCl (vitamin B1) [Vitamin B-1] 100 mg Tablet 100 mg PO QAM Qty: 30 RF: 0 pantoprazole 40 mg Tablet,Delayed Release (Dr/Ec) 40 mg PO QAM Qty: 30 RF: 0 folic acid 1 mg Tablet 1 mg PO QAM Qty: 30 RF: 0 Certavite-Antioxidant 18-400 mg-mcg Tablet 1 tab PO QAM Qty: 30 RF: 0 aspirin 81 mg Tablet,Chewable 81 mg PO DAILY RF: 0 loperamide 2 mg Tablet 4 mg PO Q12 PRN (Reason: Diarrhea) RF: 0 famotidine 20 mg Tablet 20 mg PO BIDM RF: 0 metoprolol tartrate 50 mg Tablet 50 mg PO TID 30 Days Qty: 90 RF: 2 lamotrigine 150 mg tablet 150 mg PO HS RF: 0 acetaminophen [Tylenol] 325 mg Tablet 325 mg PO Q6 MDD 3g PRN (Reason: Fever Or Pain) RF: 0 quetiapine 50 mg tablet 50 mg PO Q12 PRN (Reason: bipolar illness) RF: 0 ferrous gluconate 324 mg (38 mg iron) Tablet 324 mg PO BIDM Qty: 60 RF: 0 ondansetron HCl [Zofran] 4 mg tablet 4 mg PO Q8H PRN (Reason: nausea and vomiting) Qty: 6 RF: 0 pregabalin 75 mg capsule 75 mg PO HS Qty: 30 RF: 0 Eliquis 5 mg tablet 5 mg PO BID Qty: 30 RF: 1 Discontinued digoxin [Digitek] 125 mcg (0.125 mg) Tablet 125 mcg PO DAILY@1600 30 Days Qty: 30 RF: 1 colestipol [Colestid] 1 gram Tablet 2 g PO BID RF: 0 Discharge Orders: Discharge Order (Routine); Ordered 07/14/21 Ordered By: Aly Rodrigues Admission Data Admit Date/Time: 07/10/21 03:18 Attending Provider: Aly Rodrigues Admit Provider: Jon Ferguson Primary Care Provider: Shayna Schmitz Other Providers: Shayna Schmitz ; Jon Ferguson ; Lisandro Ruvalcaba ; Chetna Richmond Coding Level of Care Code D/C DAY MANAGEMENT >30 MINS Diagnoses Confusion R41.0 COVID-19 U07.1 CAD (coronary artery disease) I25.10 A-fib I48.91 Atrial fibrillation type: unspecified Generalized weakness R53.1 GERD (gastroesophageal reflux disease) K21.9 Myasthenia gravis G70.00 Depression F32.9 Hypertension I10 Hypertension type: essential hypertension Bipolar 1 disorder F31.9 Sleep apnea G47.30 Hyperlipidemia E78.5 Hyperlipidemia type: unspecified
[2021-07-14] MEDS: QUEtiapine FUMARATE 25 MG TABLET PO PRN (11:11)
[2021-07-14] MEDS: METOPROLOL TARTRATE 50 MG TAB PO SCH (11:12)
[2021-07-14] MEDS: FERROUS GLUCONATE 324 MG TAB PO SCH (11:15)
[2021-07-14] MEDS: APIXABAN 5 MG TABLET PO SCH (11:15)
[2021-07-14] MEDS: ASPIRIN 81 MG ECTAB PO SCH (11:15)
[2021-07-14] MEDS: CHOLECALCIFEROL 1,000 UNITS 25 MCG TAB PO SCH (11:15)
[2021-07-14] MEDS: THIAMINE HCL 100 MG TAB PO SCH (11:16)
[2021-07-14] MEDS: FOLIC ACID 1 MG TAB PO SCH (11:16)
[2021-07-14] MEDS: ROFLUMILAST 500 MCG TAB PO SCH (11:16)
[2021-07-14] MEDS: PANTOprazole 40 MG TAB PO SCH (11:16)
[2021-07-14] MEDS: FAMOTIDINE 20 MG TAB PO SCH (11:16)
[2021-07-15 16:20] LABS: Acetylcholine Recep Modulating 14; Acetylcholine Recept Blocking <15 (<15); Aldolase 5.5 U/L (< OR = 8.1); Receptor Binding Ab <0.30 nmol/L
== END 2021-07-14 12:25 | disposition hospice, inpatient (51) | DRG 947 ==
LOC: ED 23:56 → 2E 07-10 03:18 → SUATTDRO 07-10 03:18 → 2E 07-10 05:26 → 2S 07-12 23:58 → 3W 07-13 18:29